=== PATIENT | female | born 1935 | race Caucasian/White ===

== ENCOUNTER 2016-02-23 23:00 | Inpatient (IN) | payer MEDICAID, OTHER ==
[~2016-02-23] VITALS: Ht 157.5 cm; Wt 56.4 kg
--- NOTE | 2016-02-23 23:44 | ERA ---
ER Documentation Chief Complaint Date/Time DATE: 02/23/16 TIME: 23:44 Chief Complaint sp fall 1 floor height stairs l 02/09/16- seen in [place] broken ribs HPI The patient is a 80-year-old female, presenting to the ER because of left-sided chest pain, shortness of breath today. She fell February 09, 2016 in [place]. She was hospitalized for 3 days, required left chest tube due to left pneumothorax. She also had 4 broken left ribs. She just came back from [place] today by airplane. The pain is worse with breathing and with movement. She denies headache, neck pain, palpitation, diaphoresis. She also complains of diffuse vague abdominal pain and constipation. She does not have nausea, vomiting, dysuria. She smokes, drinks Past medical history: Hypertension Past surgical history: ROS All systems reviewed and are negative except as per history of present illness. Allergies Allergies: Coded Allergies: No Known Allergy (Unverified , 03/15/13) Physical Exam Vitals Vital Signs Date Time Temp Pulse Resp B/P Pulse Ox O2 Delivery O2 Flow Rate FiO2 02/24/16 02:28 57 16 171/58 100 Nasal Cannula 2.0 02/24/16 00:33 99 1.0 02/24/16 00:33 62 18 99 Nasal Cannula 1.0 02/23/16 23:40 Nasal Cannula 2.0 02/23/16 23:40 Nasal Cannula 2 02/23/16 23:14 98.4 64 20 141/63 100 Physical Exam Const: No acute distress. Head: Atraumatic. Eyes: Normal Conjunctiva. ENT: Normal External Ears, Nose and Mouth. Neck: Full range of motion. No meningismus. Resp: Decreased breath sounds at the left base, mild expiratory wheezes Cardio: Regular rate and rhythm, no murmurs. Abd: Soft, non distended, normal bowel sounds, diffuse abdominal tenderness, no rigidity, rebound, CVA tenderness Skin: No petechiae or rashes. Back: No midline or flank tenderness. Ext: My bilateral calf tenderness Neur: Awake and alert. No focal deficit Psych: Normal Mood and Affect. Result Diagram: 02/23/16 0003 02/23/16 0003 Results 24 hrs Laboratory Tests Test 02/23/16 00:03 02/24/16 00:05 02/24/16 01:08 Activated Partial Thromboplast Time 33.2Sec Alanine Aminotransferase (ALT/SGPT) 80IU/L Albumin 3.6g/dl Albumin/Globulin Ratio 1.12 Alkaline Phosphatase 155IU/L Anion Gap 16 Aspartate Amino Transf (AST/SGOT) 66IU/L Basophils # 0.110^3/ul Basophils % 1.4% Blood Morphology Comment Blood Urea Nitrogen 23mg/dl Calcium Level 8.6mg/dl Carbon Dioxide Level 22mmol/L Chloride Level 94mmol/L Creatinine 0.87mg/dl Direct Bilirubin 0.00mg/dl Eosinophils # 0.210^3/ul Eosinophils % 2.1% Globulin 3.20g/dl Glucose Level 90mg/dl Hematocrit 31.9% Hemoglobin 10.8g/dl INR International Normalized Ratio 0.95 Indirect Bilirubin 0.4mg/dl Lymphocytes # 1.010^3/ul Lymphocytes % 11.6% Mean Corpuscular Hemoglobin 32.5pg Mean Corpuscular Hemoglobin Concent 33.8g/dl Mean Corpuscular Volume 96.1fl Mean Platelet Volume 8.7fl Monocytes # 1.210^3/ul Monocytes % 14.1% Neutrophils # 6.210^3/ul Neutrophils % 70.8% Nucleated Red Blood Cells # 0.010^3/ul Nucleated Red Blood Cells % 0.0/100WBC Platelet Count 87178^3/UL Potassium Level 4.7mmol/L Prothrombin Time 12.7Sec Prothrombin Time Ratio 1.0 Red Blood Count 3.3210^6/ul Red Cell Distribution Width 18.2% Sodium Level 127mmol/L Total Bilirubin 0.4mg/dl Total Protein 6.8g/dl Troponin I < 0.012ng/ml White Blood Count 8.810^3/ul Lactic Acid Level 0.9mmol/L Urine Bacteria RARE Urine Bilirubin NEGATIVE Urine Clarity CLOUDY Urine Color LT. YELLOW Urine Glucose NEGATIVE% Urine Hemoglobin 2+ Urine Ketones NEGATIVE Urine Leukocyte Esterase NEGATIVE Urine Microscopic RBC 5-10/HPF Urine Microscopic WBC 0-2/HPF Urine Nitrite NEGATIVE Urine Specific [place] 1.015 Urine Squamous Epithelial Cells MANY Urine Total Protein NEGATIVE Urine Urobilinogen 0.2 E.U./dL Urine pH 5.5 Current Medications Medications (Trade) Dose Ordered Sig/[place] Route PRN Reason Start Time Stop Time Status Last Admin Dose Admin Morphine Sulfate (morphine) 2 mg ONCE ONCE IV 1/12/17 00:00 02/24/16 00:01 DC 02/24/16 00:00 Ondansetron HCl (Zofran Inj) 4 mg ONCE STAT IV 02/23/16 23:52 02/23/16 23:57 DC 02/23/16 23:59 Levalbuterol (Xopenex Neb) 1.25 mg ONCE ONCE HHN 02/24/16 00:30 02/24/16 00:31 DC 02/24/16 00:33 Ipratropium [place] 0.5 mg 0.5 mg ONCE ONCE HHN 02/24/16 00:30 02/24/16 00:31 DC 02/24/16 00:33 Sodium Chloride (NS) 100 ml @ ud STK-MED ONCE .ROUTE 02/24/16 00:49 02/24/16 00:50 DC 02/24/16 01:33 Iohexol (Omnipaque 300mg/ ml) 150 ml STK-MED ONCE .ROUTE 02/24/16 00:49 02/24/16 00:50 DC 02/24/16 01:33 Vancomycin HCl 1 ea 1 ea X 1 ONLY IN E.R. STAT XX 02/24/16 00:48 02/24/16 00:50 DC Cefepime HCl 50 ml @ 100 mls/hr ONCE ONCE IVPB 02/24/16 01:00 02/24/16 01:29 DC 02/24/16 01:32 Vancomycin HCl (Vancocin) 250 ml @ 125 mls/hr ONCE IVPB 02/24/16 01:26 02/24/16 03:25 DC 02/24/16 02:27 Hydromorphone HCl (Dilaudid) 1 mg ONCE ONCE IV 02/24/16 01:57 02/24/16 01:58 DC 02/24/16 02:09 IV Flush (NS 3 ml) 3 ml PER PROTOCOL IV 02/24/16 02:00 Lorazepam (Ativan) 0.5 mg Q6H PRN IV ANXIETY 02/24/16 02:00 Ondansetron HCl (Zofran Inj) 4 mg Q6H PRN IV NAUSEA AND/OR VOMITING 02/24/16 02:00 Nitroglycerin (Nitroglycerin (Sl Tab) 0.4 Mg) 1 tab Q5M PRN SL CHEST PAIN 1/12/17 02:00 Acetaminophen (Tylenol Tab) 650 mg Q6H PRN PO PAIN LEVEL 1-3 OR FEVER 02/24/16 02:00 Acetaminophen/ Hydrocodone Bitart ([place] (5/325)) 1 tab Q6H PRN PO PAIN LEVEL 4-6 02/24/16 02:00 Morphine Sulfate (morphine) 2 mg Q4H PRN IV PAIN LEVEL 7-10 02/24/16 02:00 Docusate Sodium (Colace) 100 mg Q12H PRN PO CONSTIPATION 02/24/16 02:00 Famotidine (Pepcid) 20 mg DAILY PO 02/24/16 09:00 Heparin Sodium (Porcine) (Heparin (5000 Units/0.5 ml)) 5,000 unit Q12 SC 02/24/16 09:00 Albuterol/ Ipratropium 3 ml 3 ml Q2H RESP THERAPY PRN HHN SHORTNESS OF BREATH 02/24/16 02:00 Levofloxacin/ Dextrose (Levaquin 500mg/ D5W 100 ml (Pmx)) 100 ml @ 100 mls/hr ONCE ONCE IVPB 02/24/16 06:00 02/24/16 06:59 Hydralazine HCl 10 mg 10 mg Q6H PRN IV SBP > 160 02/24/16 02:00 Sodium Chloride 1,000 ml @ 50 mls/hr Q20H IV 02/24/16 02:00 Cefepime HCl (Maxipime 1gm/50 ml (Pmx)) 50 ml @ 100 mls/hr Q12 IVPB 02/24/16 09:00 Vancomycin HCl VANCOMYCIN PER PHARMACY PER PROTOCOL XX 02/24/16 02:30 Levofloxacin/ Dextrose 50 ml @ 50 mls/hr Q24H IVPB 02/25/16 06:00 Vancomycin HCl/ Sodium Chloride (Vancocin/NS) 150 ml @ 75 mls/hr Q24H IVPB 02/25/16 02:00 Procedures/MDM EKG: Read by emergency physician Rate/Rhythm: Sinus bradycardia 58 beats per min QRS, ST, T-waves: No ST elevation, no T wave inversion Impression: Abnormal EKG [address] [address] Radiology Main Line: [phone] DIAGNOSTIC IMAGING REPORT Patient: RENETTA BOB : 1935 Age: 80 Sex: F MR #: [id number] DOS: 02/23/162351 Ordering MD: ISABEL COLEMAN MD Location: E/R Room/Bed: PROCEDURE: XR Chest. CLINICAL INDICATION: Chest pain and sepsis TECHNIQUE: AP Portable chest. COMPARISON: None available FINDINGS: The soft tissues and bones are remarkable for bilateral acromioclavicular osteoarthropathy and mild thoracic spondylosis consolidation is noted obliquely along the course of the left major fissure and associated left lower lobe. This may represent a pseudotumor from fluid within the major fissure or pneumonia. A small to moderate left pleural effusion is present. Consider chest CT to further evaluate. The mediastinum and heart are remarkable for a vascular calcifications of the thoracic aorta and normal size heart. No pneumothorax is present. IMPRESSION: 1. Left lower lobe pneumonia and small left pleural effusion with possible extension into the left major fissure. Recommend CT chest to further evaluate. 2. Mild atherosclerotic vascular disease RPTAT: HDC .Nazia Sweeney MD, MD Date Time Electronically viewed and signed by .Nazia Sweeney MD, MD on 02/24/2016 00: 23 .C/ CC: ISABEL COLEMAN MD [place] [address] Radiology Main Line: [phone] DIAGNOSTIC IMAGING REPORT Patient: RENETTA BOB : 1935 Age: 80 Sex: F MR #: [id number] DOS: 02/24/162351 Ordering MD: ISABEL COLEMAN MD Location: E/R Room/Bed: PROCEDURE: US bilateral lower extremity venous Doppler CLINICAL INDICATION: Bilateral swelling TECHNIQUE: Multiple sonographic images of the bilateral lower extremity deep venous system was obtained utilizing grayscale, color-flow, compressive sonography and Doppler imaging with augmentation. COMPARISON: There are no similar studies submitted for comparison. FINDINGS: There is normal compressibility and flow within the bilateral common femoral, superficial femoral, popliteal, and calf veins. IMPRESSION: No evidence of DVT within the lower extremities. RPTAT: HIKT .Frank Enciso MD, Date Time Electronically viewed and signed by .Frank Enciso MD, MD on 02/24/2016 02:09 .T/ CC: ISABEL COLEMAN MD [place] [address] Radiology Main Line: [phone] DIAGNOSTIC IMAGING REPORT Patient: RENETTA BOB : 1935 Age: 80 Sex: F MR #: [id number] DOS: 02/23/16 2352 Ordering MD: ISABEL COLEMAN MD Location: E/R Room/Bed: PROCEDURE: CT angiogram chest abdomen and pelvis. CLINICAL INDICATION: Chest and back pain TECHNIQUE: CT angiogram of the chest/abdomen/pelvis was performed utilizing axial images with reconstructions in sagittal and coronal planes after the uneventful intravenous administration of 90 cc Isovue 370 contrast. The administered radiation dose is CTDI 6.5 mGy, DLP 662 mGy-cm. COMPARISON: No pertinent prior examinations are submitted for comparison. FINDINGS: Aortogram: There is no evidence of aortic dissection or aneurysm. Some scattered atherosclerotic calcifications are noted within the aorta and its branches. Major branches of the aorta are patent. There is a moderate to marked narrowing within the proximal superior mesenteric artery due to some noncalcified atherosclerotic plaque. Pulmonary angiogram: The pulmonary arteries are adequately opacified to the level of the segmental pulmonary artery branches. There is minimal respiratory motion artifact. There is no evidence of pulmonary embolus. Chest: No definite pneumothorax is seen however there is some subcutaneous emphysema throughout the chest monet, especially on the left. There is moderate left hemothorax. Some mucus plugging is noted within the left lower lobe bronchi with some adjacent atelectasis. Abdomen: The liver, spleen, pancreas, gallbladder, and adrenal glands are unremarkable. A small cyst is noted along the anterior aspect of the left kidney. There is no evidence of bowel obstruction. The appendix is normal. There is no intra-abdominal adenopathy of free fluid. Pelvis: There is no evidence of pelvic adenopathy. The uterus and ovaries are without enlargement. The urinary bladder is unremarkable. There is no pelvic free fluid. Osseous structures: There are acute fractures of the left posterior 2nd through 12th ribs at the costovertebral junction. There are acute fractures of the left third through eleventh ribs posterolaterally as well. There are also acute fractures of the anterior left of the second through seventh ribs. There are acute fractures of the left T3-T12 transverse processes. There are acute nondisplaced fractures of the left L1-L4 transverse processes. Some deformities of the right L2 and L3 transverse processes are noted, likely due to remote fractures. Vertebral body stature and alignment are maintained. IMPRESSION: No evidence of aortic dissection or aneurysm. No evidence of pulmonary embolus. Acute fractures of the left second through 12th ribs, with fractures of the 2nd through 11th ribs in at least 2 places. Please correlate for flail chest. Moderate left hemothorax with associated atelectasis. Mucous plugging in the left lower lobe. Acute fractures of the left T3-T12 and L1-L4 transverse processes. 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 RPTAT: HIKT .Frank Enciso MD, MD Date Time Electronically viewed and signed by .Frank Enciso MD, MD on 02/24/2016 02:33 .T/ CC: ISABEL COLEMAN MD MEDICAL MAKING DECISION: The patient is a 80-year-old female, presenting with acute healthcare acquired pneumonia, acute hyponatremia, subacute left pneumothorax,. She was treated with morphine 2 mg IV and metabolic, IV for pain and Zofran 4 IV for nausea, Xopenex 1.25 mg and Atrovent 0.5 mg for wheezing with good response. She was treated with vancomycin IV and cefepime IV , subacute flail chest, subacute left hemothorax, subacute T3 through T12 and L1 -L4 transverse fracture. The patient vital sign is stable and does not require emergent chest tube. She will need to be seen by thoracic surgery for possible VATS Critical Care: Time: 35 minutes excluding all billable procedures. Treatments/Evaluations: Close monitoring and treatment of unstable vital signs, cardiorespiratory, and neurologic status, while maintaining tight balance of fluid, respiratory, and cardiac interventions. Departure Diagnosis: Primary Impression: Pneumonia Additional Impressions: Hemothorax on left Flail chest Fracture of transverse process of thoracic vertebra Lumbar transverse process fracture Hyponatremia Anemia Abnormal LFTs Condition: Stable Comments I discussed the findings with the patient. I discussed the patient with the on- call hospitalist at the [facility] who was made aware of the lab, the treatment, the patient condition. The patient is admitted to telemetry at 1:30 AM ISABEL COLEMAN MD Feb 23, 2016 23:44
[2016-02-23] MEDS ORDERED: ONDANSETRON 4 MG INJ IV STA (23:52)
[2016-02-24] MEDS ORDERED: morphine 2 MG INJ IV ONE
--- NOTE | 2016-02-24 00:23 | RADRPT ---
PROCEDURE: XR Chest. CLINICAL INDICATION: Chest pain and sepsis TECHNIQUE: AP Portable chest. COMPARISON: None available FINDINGS: The soft tissues and bones are remarkable for bilateral acromioclavicular osteoarthropathy and mild thoracic spondylosis consolidation is noted obliquely along the course of the left major fissure and associated left lower lobe. This may represent a pseudotumor from fluid within the major fissure or pneumonia. A small to moderate left pleural effusion is present. Consider chest CT to further evalu ate. The mediastinum and heart are remarkable for a vascular calcifications of the thoracic aorta a nd normal size heart. No pneumothorax is present. IMPRESSION: 1. Left lower lobe pneumonia and small left pleural effusion with possible extension into the left major fissure. Recommend CT chest to further evaluate. 2. Mild atherosclerotic vascular disease RPTAT: HDC .Nazia Sweeney MD, Date Time Electronically viewed and signed by .Nazia Sweeney MD, on 02/24/2016 00:23 .C/
[2016-02-24 00:30] LABS: BASOPHIL # 0.1 10^3/ul (0.0-0.1); BASOPHILS % 1.4 % (0.0-2.0); EOSINOPHILS # 0.2 10^3/ul (0.0-0.5); EOSINOPHILS % 2.1 % (0.0-7.0); HEMATOCRIT 31.9 % (37.0-47.0); HEMOGLOBIN 10.8 g/dl (12.0-16.0); LYMPHOCYTES % 11.6 % (15.0-51.0); MEAN CORPUSCULAR HEMOGLOBIN 32.5 pg (29.0-33.0); MEAN CORPUSCULAR HGB CONC 33.8 g/dl (32.0-37.0); MEAN CORPUSCULAR VOLUME 96.1 fl (82.0-101.0); MEAN PLATELET VOLUME 8.7 fl (7.4-10.4); MONOCYTE # 1.2 10^3/ul (0.3-0.9); MONOCYTES % 14.1 % (0.0-11.0); NEUTROPHIL # 6.2 10^3/ul (1.6-7.5); NEUTROPHILS % 70.8 % (39.0-77.0); PLATELET COUNT 403 10^3/UL (140-440); RED BLOOD COUNT 3.32 10^6/ul (4.20-5.40); RED CELL DISTRIBUTION WIDTH 18.2 % (11.5-14.5); UNCORRECTED WBC 8.8 10^3/ul (4.8-10.8); WHITE BLOOD COUNT 8.8 10^3/ul (4.8-10.8)
[2016-02-24] MEDS ORDERED: LEVALBUTEROL (NEB) 1.25 MG/0.5 ML AMP HHN ONE (00:30)
[2016-02-24] MEDS ORDERED: IPRATROPIUM (NEB) 0.5 MG/2.5 ML AMP HHN ONE (00:30)
[2016-02-24 00:38] LABS: ALBUMIN 3.6 g/dl (3.3-4.9); CHLORIDE 94 mmol/L (97-110); POTASSIUM 4.7 mmol/L (3.5-5.1); SODIUM 127 mmol/L (135-144)
[2016-02-24 00:40] LABS: CREATININE 0.87 mg/dl (0.44-1.00); INR 0.95; PARTIAL THROMBOPLASTIN TIME 33.2 Sec (25.0-35.0); PROTIME 12.7 Sec (12.2-14.2)
[2016-02-24 00:41] LABS: ALANINE AMINOTRANSFERASE 80 IU/L (13-69); ALBUMIN/GLOBULIN RATIO 1.12; ALKALINE PHOSPHATASE 155 IU/L (42-121); ANION GAP 16 (8-16); ASPARTATE AMINO TRANSFERASE 66 IU/L (15-46); BILIRUBIN,INDIRECT 0.4 mg/dl (0-1.1); BILIRUBIN,TOTAL 0.4 mg/dl (0.2-1.3); BLOOD UREA NITROGEN 23 mg/dl (7-20); CALCIUM 8.6 mg/dl (8.4-10.2); CARBON DIOXIDE 22 mmol/L (21-31); GLUCOSE 90 mg/dl (70-220); TOTAL PROTEIN 6.8 g/dl (6.1-8.1)
[2016-02-24 00:45] LABS: CONDITION 1; LH ANALYZER COMMENTS 1
[2016-02-24] MEDS ORDERED: VANCOMYCIN IV PER PHARMACY XX STA (00:48)
[2016-02-24] MEDS ORDERED: IOHEXOL 300MG/ML 150 ML BTL ONE (00:49)
[2016-02-24] MEDS ORDERED: SOD CHLORIDE 0.9% 100 ML ONE (00:49)
[2016-02-24 00:54] LABS: TROPONIN-I < 0.012 ng/ml (0.00-0.12)
[2016-02-24] MEDS ORDERED: CEFEPIME 1GM/50 ML (PMX) 50 ML IVPB ONE (01:00)
[2016-02-24] MEDS ORDERED: VANCOMYCIN 1 GM in NS 250 ML IVPB SCH (01:26)
[2016-02-24 01:29] LABS: ADD UMIC YES; URINE BILIRUBIN (Dip) NEGATIVE (NEGATIVE); URINE BLOOD (Dip) 2+ (NEGATIVE); URINE COLOR LT. YELLOW (YELLOW); URINE GLUCOSE (Dip) NEGATIVE (NEGATIVE); URINE KETONES (Dip) NEGATIVE (NEGATIVE); URINE LEUKOCYTE ESTERASE (Dip) NEGATIVE (NEGATIVE); URINE NITRITE (Dip) NEGATIVE (NEGATIVE); URINE TOTAL PROTEIN (Dip) NEGATIVE (NEGATIVE); URINE UROBILINOGEN (Dip) 0.2 E.U./dL (0.1-1.0)
[2016-02-24 01:50] LABS: BACTERIA,URINE RARE; SQUAMOUS EPITHELIAL CELL,UR MANY
[2016-02-24] MEDS ORDERED: HYDROmorphONE 1 MG/ML SYG IV ONE (01:57)
--- NOTE | 2016-02-24 01:58 | HP ---
Date/Time of Note Date/Time of Note DATE: 02/24/16 TIME: 01:55 Assessment/Plan VTE Prophylaxis VTE Prophylaxis Intervention: heparin Assessment/Plan Assessment/Plan 80 yo female with past medical history of essential hypertension who complains of chest pain, with cough and cold symptoms. 1. Shortness of breath - 2/2 to LLL PNA - will admit to telemetry - continue with O2 supplementation - IV antibiotics - broad spectrum with HCAP, rule out TB with quantiferon gold, if deteriorating condition consider pulm consult, respiratory cultures 2. Recent PTX with residual pain - continue with pain management 3. Essential hypertension - prn hydralazine for sbp > 160 4. Transaminitis - 2/2 #1 (atypical) vs other - check hepatitis panel 5. Anemia - normocytic - check folate/b12, iron panel, occult blood stool 6. Hyponatremia - acute - IVF, if worsening or not improving - consider nephro consult, serum/urine studies 7. Smoking abuse - patient counseled on cessation 8. GI ppx - pepcid 9. DVT ppx - heparin answered all of her questions. as per clinical course. this history and physical took greater then 45 minutes to complete HPI/ROS Admit Date/Time Admit Date/Time 02/24/2016, 1:56 am Hx of Present Illness 80 yo female with past medical history of essential hypertension who complains of chest pain, with cough and cold symptoms. Patient had recently came from [place], where she sustained a fall off a roof and left 4 rib fractures with pneumothorax as a result. She had a chest tube placed and removed at a hospital in [place]. She now complains of chest pain and shortness of breath, with productive cough, fevers/chills, dizziness and headaches. She denies any TB contacts, but did just arrive from [place]. Denies any loss of consciousness, urinary/bowel irregularities, blurriness in vision, or other constitutional symptoms. ED course: IV antibiotics, pain medications ROS 14 point review of systems completed, please refer to HPI for any positive findings PMH/Family/Social Past Medical History Medical History: hypertension Past Surgical History s/p left sided chest tube placement Past Surgical Hx: appendectomy Family History Significant Family History: no pertinent family hx Social History Alcohol Use: occasionally Smoking Status: Current every day smoker (1 ppd x 50 yrs) Drug Use: none Exam/Review of Systems Vital Signs Vitals Vital Signs Date Time Temp Pulse Resp B/P Pulse Ox O2 Delivery O2 Flow Rate FiO2 02/24/16 00:33 99 1.0 02/24/16 00:33 62 18 Nasal Cannula 02/23/16 23:14 98.4 141/63 Exam Exam Gen Sima: moderate respiratory distress, AAOx4 HEENT: NC/AT, PERRLA, EOMI, no pharyngeal erythema, no tonsillar exudates, no lymphadenopathy, no JVD, no carotid bruits NECK: supple, no thyromegaly THORAX: left sided dressing noted, ttp left anterior/lateral chest CV: S1S2, RRR, no M/G/R Lungs: decreased aeration left mid/lower lung, with rhoncherous sounds, no wheezing or crackles appreciated Abd: soft, NT/ND, +BS, no rebound, no guarding, neg HSM EXT: no edema, no ecchymosis, no clubbing, FROM Neuro: CN II-XII grossly intact, no focal deficits Psych: anxious Skin: C/D/I Labs Result Diagram: 02/23/16 0003 02/23/16 0003 Medications Medications Current Medications Vancomycin HCl (Vancocin) 250 ml @ 125 mls/hr ONCE IVPB ; Start 02/24/16 at 01: 26; Stop 02/24/16 at 03:25 Lorazepam (Ativan) 0.5 mg Q6H PRN IV ANXIETY; Start 02/24/16 at 02:00; Status UNV Ondansetron HCl (Zofran Inj) 4 mg Q6H PRN IV NAUSEA AND/OR VOMITING; Start 01/28 at 02:00; Status UNV Nitroglycerin (Nitroglycerin (Sl Tab) 0.4 Mg) 1 tab Q5M PRN SL CHEST PAIN; Start 02/24/16 at 02:00; Status UNV Acetaminophen (Tylenol Tab) 650 mg Q6H PRN PO PAIN LEVEL 1-3 OR FEVER; Start at 02:00; Status UNV Acetaminophen/ Hydrocodone Bitart ([place] (5/325)) 1 tab Q6H PRN PO PAIN LEVEL 4 -6; Start 02/24/16 at 02:00; Status UNV Morphine Sulfate (morphine) 2 mg Q4H PRN IV PAIN LEVEL 7-10; Start 02/24/16 at 02:00; Status UNV Docusate Sodium (Colace) 100 mg Q12H PRN PO CONSTIPATION; Start 02/24/16 at 02: 00; Status UNV Famotidine (Pepcid) 20 mg Q12 PO ; Start 02/24/16 at 09:00; Status UNV Procedures Procedures CXR IMPRESSION: 1. Left lower lobe pneumonia and small left pleural effusion with possible extension into the left major fissure. Recommend CT chest to further evaluate. 2. Mild atherosclerotic vascular disease MELVIN LOVELACE MD Feb 24, 2016 01:58
[2016-02-24] MEDS ORDERED: NITROGLYCERIN (SL) 0.4 MG TAB SL PRN (02:00)
[2016-02-24] MEDS ORDERED: DOCUSATE SODIUM 100 MG CAP PO PRN (02:00)
[2016-02-24] MEDS ORDERED: NACL 0.9% 3 ML SYG IV SCH (02:00)
[2016-02-24] MEDS ORDERED: ALBUTEROL/IPRATROPIUM (NEB) 3 ML AMP HHN PRN (02:00)
--- NOTE | 2016-02-24 02:10 | RADRPT ---
PROCEDURE: US bilateral lower extremity venous Doppler CLINICAL INDICATION: Bilateral swelling TECHNIQUE: Multiple sonographic images of the bilateral lower extremity deep venous system was obt ained utilizing grayscale, color-flow, compressive sonography and Doppler imaging with augmentation. COMPARISON: There are no similar studies submitted for comparison. FINDINGS: There is normal compressibility and flow within the bilateral common femoral, superficial femoral, p opliteal, and calf veins. IMPRESSION: No evidence of DVT within the lower extremities. RPTAT: HIKT .Frank Enciso MD, MD Date Time Electronically viewed and signed by .Frank Enciso MD, MD on 02/24/2016 02:09 .T/
[2016-02-24] MEDS ORDERED: VANCOMYCIN IV PER PHARMACY XX SCH (02:30)
--- NOTE | 2016-02-24 02:34 | RADRPT ---
PROCEDURE: CT angiogram chest abdomen and pelvis. CLINICAL INDICATION: Chest and back pain TECHNIQUE: CT angiogram of the chest/abdomen/pelvis was performed utilizing axial images with esther nstructions in sagittal and coronal planes after the uneventful intravenous administration of 90 cc Isovue 370 contrast. The administered radiation dose is CTDI 6.5 mGy, DLP 662 mGy-cm. COMPARISON: No pertinent prior examinations are submitted for comparison. FINDINGS: Aortogram: There is no evidence of aortic dissection or aneurysm. Some scattered atherosclerotic c alcifications are noted within the aorta and its branches. Major branches of the aorta are patent. T here is a moderate to marked narrowing within the proximal superior mesenteric artery due to some no ncalcified atherosclerotic plaque. Pulmonary angiogram: The pulmonary arteries are adequately opacified to the level of the segmental pulmonary artery branches. There is minimal respiratory motion artifact. There is no evidence of p ulmonary embolus. Chest: No definite pneumothorax is seen however there is some subcutaneous emphysema throughout the chest w alls, especially on the left. There is moderate left hemothorax. Some mucus plugging is noted with in the left lower lobe bronchi with some adjacent atelectasis. Abdomen: The liver, spleen, pancreas, gallbladder, and adrenal glands are unremarkable. A small cyst is noted along the anterior aspect of the left kidney. There is no evidence of bowel obstruction. The appendix is normal. There is no intra-abdominal adenopathy of free fluid. Pelvis: There is no evidence of pelvic adenopathy. The uterus and ovaries are without enlargement. The uri nary bladder is unremarkable. There is no pelvic free fluid. Osseous structures: There are acute fractures of the left posterior 2nd through 12th ribs at the cos tovertebral junction. There are acute fractures of the left third through eleventh ribs posterolater ally as well. There are also acute fractures of the anterior left of the second through seventh rib s. There are acute fractures of the left T3-T12 transverse processes. There are acute nondisplaced fractures of the left L1-L4 transverse processes. Some deformities of the right L2 and L3 transver se processes are noted, likely due to remote fractures. Vertebral body stature and alignment are ma intained. IMPRESSION: No evidence of aortic dissection or aneurysm. No evidence of pulmonary embolus. Acute fractures of the left second through 12th ribs, with fractures of the 2nd through 11th ribs in at least 2 places. Please correlate for flail chest. Moderate left hemothorax with associated atelectasis. Mucous plugging in the left lower lobe. Acute fractures of the left T3-T12 and L1-L4 transverse processes. 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 RPTAT: HIKT .Frank Enciso MD, MD Date Time Electronically viewed and signed by .Frank Enciso MD, MD on 02/24/2016 02:33 .T/
[2016-02-24] MEDS: SOD CHLORIDE 0.9% 1,000 ML IV SCH ×2 (05:24→18:00)
[2016-02-24] MEDS ORDERED: LEVOFLOXACIN 500MG/D5W (PMX) 100 ML IVPB ONE (06:00)
[2016-02-24 06:16] LABS: HAAIG REFLEX REFLEX FILED
[2016-02-24 06:47] LABS: POTASSIUM 5.2 mmol/L (3.5-5.1)
[2016-02-24 06:49] LABS: CREATINE KINASE 55 IU/L (23-200)
[2016-02-24 06:50] LABS: CREATININE 0.84 mg/dl (0.44-1.00)
[2016-02-24 06:50] LABS: IRON 36 ug/dl (35-150)
[2016-02-24 06:51] LABS: CALCIUM 8.3 mg/dl (8.4-10.2)
[2016-02-24 06:54] LABS: BASOPHILS % 0.5 % (0.0-2.0); EOSINOPHILS # 0.1 10^3/ul (0.0-0.5); EOSINOPHILS % 1.7 % (0.0-7.0); HEMOGLOBIN 10.2 g/dl (12.0-16.0); LYMPHOCYTES # 1.2 10^3/ul (0.8-2.9); LYMPHOCYTES % 15.6 % (15.0-51.0); MEAN CORPUSCULAR HEMOGLOBIN 32.7 pg (29.0-33.0); MEAN CORPUSCULAR HGB CONC 33.8 g/dl (32.0-37.0); MEAN CORPUSCULAR VOLUME 96.6 fl (82.0-101.0); MEAN PLATELET VOLUME 8.3 fl (7.4-10.4); MONOCYTE # 1.2 10^3/ul (0.3-0.9); MONOCYTES % 14.6 % (0.0-11.0); NEUTROPHIL # 5.3 10^3/ul (1.6-7.5); NEUTROPHILS % 67.6 % (39.0-77.0); PLATELET COUNT 367 10^3/UL (140-440); RED BLOOD COUNT 3.11 10^6/ul (4.20-5.40); RED CELL DISTRIBUTION WIDTH 18.6 % (11.5-14.5); UNCORRECTED WBC 7.9 10^3/ul (4.8-10.8); WHITE BLOOD COUNT 7.9 10^3/ul (4.8-10.8)
[2016-02-24 06:59] LABS: CK-MB 2.76 ng/ml (0.0-2.4)
[2016-02-24 06:59] LABS: TOTAL IRON BINDING CAPACITY 283 ug/dl (241-421)
[2016-02-24 07:01] LABS: CONDITION 1; SUSPECT 1
[2016-02-24 07:02] LABS: LH ANALYZER COMMENTS 1
[2016-02-24 07:04] LABS: TROPONIN-I < 0.012 ng/ml (0.00-0.12)
[2016-02-24 07:38] LABS: HEPATITIS B CORE ANTIBODY NEGATIVE (NEGATIVE)
[2016-02-24 07:58] LABS: CHOL/HDL RATIO 2.6 RATIO; MAGNESIUM 1.9 mg/dl (1.7-2.5)
[2016-02-24] MEDS: FAMOTIDINE 20 MG TAB PO SCH (08:29)
[2016-02-24] MEDS: CEFEPIME 1GM/50 ML (PMX) 50 ML IVPB SCH ×2 (08:29→23:11)
[2016-02-24 08:58] LABS: THYROID STIMULATING HORMONE 22.5 MIU/L (0.465-4.680)
[2016-02-24] MEDS ORDERED: HEPARIN 5,000 UNIT/0.5 ML SYG SC SCH (09:00)
[2016-02-24] MEDS: HYDROCODONE/APAP (5/325) TAB PO PRN ×2 (11:06→23:11)
[2016-02-24] MEDS ORDERED: NA POLYST SULFON 15 GM/60 ML BTL PO ONE (12:00)
[2016-02-24 12:46] LABS: CREATINE KINASE 50 IU/L (23-200)
[2016-02-24 12:56] LABS: CK-MB 1.46 ng/ml (0.0-2.4)
[2016-02-24 13:02] LABS: TROPONIN-I < 0.012 ng/ml (0.00-0.12)
[2016-02-24] MEDS ORDERED: CYAN50TA PO (13:15)
[2016-02-24] MEDS ORDERED: ENAL10TA PO (13:16)
[2016-02-24] MEDS ORDERED: DICL50TA11 PO (13:16)
[2016-02-24] MEDS ORDERED: TRAM-40 PO (13:16)
[2016-02-24] MEDS ORDERED: IBUP-1542 PO (13:17)
[2016-02-24] MEDS: ALBUTEROL 0.083% (NEB) 2.5 MG/3 ML AMP HHN SCH (13:39)
[2016-02-24] MEDS: DOCUSATE SODIUM 100 MG CAP PO SCH (13:55)
[2016-02-24 14:00] VITALS: TEMP 99.3
--- NOTE | 2016-02-24 16:15 | RADRPT ---
PROCEDURE: CT Brain without contrast. CLINICAL INDICATION: Trauma due to falling from the roof. Headache. TECHNIQUE: A CT of the brain without contrast was performed utilizing axial sections from the skul l base through the vertex. The patient was scanned without intravenous contrast enhancement. Sagitta l and coronal reformatted images were obtained using the data from the axial images. Total exam DLP is 630.20 mGy-cm. CTDIvol is 44.73 mGy. One or more of the following dose reduction techniques we re used: Automated exposure control, adjustment of the mA and/or kV according to patient size, use o f iterative reconstruction technique. COMPARISON: None available FINDINGS: There is normal riggins-white matter differentiation. There is enlargement of the ventricles and subarachnoid spaces consistent with atrophy. There is decreased attenuation of the periventricular white matter consistent with microangiopathic ischemic change. There is no intracranial hemorrhage or space-occupying lesion. There are vascular calcifications consistent with atherosclerosis. There is no skull fracture or lytic lesion. There is fluid and mucosal thickening in the ethmoid and sphenoid sinuses. IMPRESSION: 1. Atrophy. 2. Microangiopathic ischemic change. 3. Atherosclerosis. 4. Fluid and mucosal thickening in the ethmoid and sphenoid sinuses. 5. No intracranial hemorrhage. 6. Otherwise unremarkable noncontrast CT scan of the brain. RPTAT: QQ .Carter Field MD, Date Time Electronically viewed and signed by .Carter Field MD, on 02/24/2016 16:15 .R/
[2016-02-24 16:45] VITALS: BP 154/57; PULSE 60; RESP 16
[2016-02-24] MEDS: morphine 2 MG INJ IV PRN ×2 (16:46→20:25)
[2016-02-24 16:55] VITALS: PULSE 61
[2016-02-24 17:03] VITALS: Ht 157.5 cm; Wt 56.4 kg
--- NOTE | 2016-02-24 17:40 | RADRPT ---
PROCEDURE: CT Cervical Spine. CLINICAL INDICATION: Trauma TECHNIQUE: Helical CT scanning which forms the basis for coronal and sagittal reformatted images. All CT scans at this facility use dose modulation, iterative reconstruction, and/or weight-based do sing when appropriate to reduce radiation dose to as low as reasonably achievable. The CTDIvol is 2 2.21 mGy and the DLP is 467.67 mGycm. One or more of the following dose reduction techniques were us ed: automated exposure control, adjustment of the mA and/or kV according to patient size, or use of iterative reconstruction technique. COMPARISON: None. FINDINGS: There are degenerative changes throughout the cervical spine with osteophytes and endplate irregular ities. No prevertebral soft tissue swelling is seen. There is grade 1 anterolisthesis at C4-5 and C 7-T1. Alignment otherwise anatomic. Facet degenerative changes are seen throughout as well. No de finite fracture. Multilevel foraminal narrowing on a degenerative basis. There are fractures of th e medial end of the right first rib, bilateral second ribs, and left third rib. Changes of the thor acic spine will be described in report below. Pleural effusion is partially imaged. Multilevel disk protrusions most notable at C4-5 and C5-6. Probable moderate spinal stenosis at C5-6 with canal di ameter of approximate 6 mm. Atherosclerotic change. IMPRESSION: Degenerative change of the cervical spine with minor listhesis but no definite fracture and no preve rtebral soft tissue swelling. Clinical clearance of the cervical spine is still advised. Degenerat margaret change with disk protrusions most pronounced at C4-5 and C5-6. Spinal stenosis at least at C5-6 . MRI can be obtained as indicated. RPTAT: [facility] Physician [place] Date Time Electronically viewed and signed by Physician [place] on 02/24/2016 17:40 SHANITA/
--- NOTE | 2016-02-24 17:48 | RADRPT ---
PROCEDURE: CT L-Spine. CLINICAL INDICATION: Trauma. Fall off roof. Thoracic spine fractures. TECHNIQUE: Section spiral CT images through the lumbar spine without contrast. Multiplanar recons tructions. .The CTDIvol is 17.48 mGy and the DLP is 476.59 mGycm. One or more of the following dos e reduction techniques were used: automated exposure control, adjustment of the mA and/or kV accordi ng to patient size, or use of iterative reconstruction technique. COMPARISON: None FINDINGS: Changes of the thoracic spine will be described in separate report. There are mild degenerative luther nges of the lumbar spine with small osteophytes and minor endplate irregularities. No listhesis is seen. There are fractures of the left L1-L4 transverse processes. There is a horizontal lucency th rough the facet and spinous processes of L2. Margins are somewhat sclerotic suggesting this may be old rather than acute. Disk bulge and short pedicles in addition to facet and ligamentous hypertrop hic changes contribute to tight spinal stenosis and L3-4 and L4-5. Disk bulge and facet ligamentous hypertrophic changes contribute to tight left foraminal narrowing L5-S1. No other fractures are se en. Residual contrast material is seen in the kidneys. Atherosclerotic change of the aorta and bran ches. IMPRESSION: Degenerative changes of the thoracic spine. Left L1-L4 transverse process fractures. Lucency throug h the facet and spinous processes of L2 with the appearance more suggestive of degenerative change o r remote trauma rather than acute injury. Nondisplaced fracture cannot be completely excluded. Lum bar spondylosis spinal stenosis at L3-4 and L4-5. RPTAT: [facility] Physician [place] Date Time Electronically viewed and signed by Physician [place] on 02/24/2016 17:48 LE/
--- NOTE | 2016-02-24 17:54 | RADRPT ---
PROCEDURE: CT thoracic spine CLINICAL INDICATION: Trauma TECHNIQUE: Thin section spiral CT images through the thoracic spine without contrast. Multiplanar reconstructions. The CTDIvol is 14.19 mGy and the DLP is 503.4 mGycm. COMPARISON: None FINDINGS: Fractures of the medial ends of the right first, bilateral second, and left 3rd through 12th ribs. There is a moderate left pleural effusion. Atherosclerotic change of the aorta is seen as well as c ardiomegaly. There are fractures through the left transverse processes of T6-T12. There are mild d egenerative changes throughout the thoracic spine with small osteophytes and minor endplate irregula rities. No vertebral body compression fracture is seen. No other fractures are seen. No listhesis is seen. IMPRESSION: Multiple medial posterior rib fractures as described as well as fractures through the left transvers e processes from T6-T12. Degenerative change. RPTAT: [facility] Physician [place] Date Time Electronically viewed and signed by Gayla Cho Physician on 02/24/2016 17:54 SHANITA/
[2016-02-24 19:46] VITALS: BP 199/60; RESP 16
[2016-02-24] MEDS: hydrALAzine 20 MG INJ IV PRN (19:50)
--- NOTE | 2016-02-24 20:27 | CONS ---
DATE OF ADMISSION: 02/24/2016 DATE OF CONSULTATION: REASON FOR CONSULTATION: Hemothorax. HISTORY OF PRESENT ILLNESS: This is a 80-year-old female admitted to the emergency room because of pain, was found to have a history of fall with fractured ribs. Chest CT was done which showed no ev idence of any aneurysm, but the patient had subcutaneous emphysema, moderate left hemothorax. The p atient is currently hemodynamically stable with a blood pressure of 154/57, pulse is 60, respiration s are 16, saturation is 99% on 2 L of oxygen, and her hemoglobin is stable at 10.2, which is stable from 10.8 yesterday. PAST MEDICAL HISTORY: Hypertension, diabetes. PAST SURGICAL HISTORY: None. ALLERGIES: NONE. SOCIAL HISTORY: No smoking, drinking or drug use. MEDICATIONS: List reviewed. PHYSICAL EXAMINATION: VITAL SIGNS: Blood pressure is as stated above. CARDIOVASCULAR: Regular rate and rhythm. LUNGS: Clear on the right. Diminished breath sounds on the left. ABDOMEN: Soft, nontender, nondistended. EXTREMITIES: Warm. LABORATORY VALUES: Hemoglobin 10.2. IMPRESSION: 1. Status post fall. 2. Rib fractures. 3. Left hemothorax. RECOMMENDATIONS: The patient will need left video-assisted thoracic surgery and decortication. Gutierrez dale discuss with the family. Dictated By: SE MCBRIDE/JOSUÉ Conf#: [id number] DID#: [id number]
[2016-02-24 20:42] VITALS: PULSE 60
[2016-02-24] MEDS ORDERED: LABETALOL HCL 20MG INJ IV PRN (23:00)
[2016-02-24] MEDS: GUAIFENESIN/DM 5ML CUP PO PRN (23:11)
[2016-02-25] VITALS (37 sets, daily range): BP systolic 131–203; BP diastolic 37–84; PULSE 56–86; RESP 12–24
[2016-02-25] MEDS: DOCUSATE SODIUM 100 MG CAP PO SCH ×2 (02:00→13:33)
[2016-02-25] MEDS: ALBUTEROL 0.083% (NEB) 2.5 MG/3 ML AMP HHN SCH ×5 (02:23→19:48)
[2016-02-25] MEDS: VANCOMYCIN 750 MG in SOD CHLORIDE 0.9% 150 ML IVPB SCH (03:40)
[2016-02-25] MEDS ORDERED: LEVOFLOXACIN 250MG/D5W (PMX) 50 ML IVPB SCH (06:00)
[2016-02-25 06:24] LABS: BASOPHILS % 0.2 % (0.0-2.0); EOSINOPHILS % 0.3 % (0.0-7.0); HEMATOCRIT 29.4 % (37.0-47.0); LYMPHOCYTES # 1.3 10^3/ul (0.8-2.9); LYMPHOCYTES % 9.8 % (15.0-51.0); MEAN CORPUSCULAR HEMOGLOBIN 32.7 pg (29.0-33.0); MEAN CORPUSCULAR VOLUME 96.1 fl (82.0-101.0); MEAN PLATELET VOLUME 8.3 fl (7.4-10.4); MONOCYTE # 1.6 10^3/ul (0.3-0.9); MONOCYTES % 12.8 % (0.0-11.0); NEUTROPHIL # 9.9 10^3/ul (1.6-7.5); NEUTROPHILS % 76.9 % (39.0-77.0); PLATELET COUNT 316 10^3/UL (140-440); RED BLOOD COUNT 3.06 10^6/ul (4.20-5.40); RED CELL DISTRIBUTION WIDTH 18.7 % (11.5-14.5); UNCORRECTED WBC 12.8 10^3/ul (4.8-10.8); WHITE BLOOD COUNT 12.8 10^3/ul (4.8-10.8)
[2016-02-25 06:34] LABS: CONDITION 1; LH ANALYZER COMMENTS 1
[2016-02-25 06:41] LABS: ALBUMIN 2.8 g/dl (3.3-4.9)
[2016-02-25 06:42] LABS: POTASSIUM 4.9 mmol/L (3.5-5.1)
[2016-02-25 06:44] LABS: ALBUMIN/GLOBULIN RATIO 0.96; BILIRUBIN,INDIRECT 0.4 mg/dl (0-1.1); BILIRUBIN,TOTAL 0.4 mg/dl (0.2-1.3); CALCIUM 8.1 mg/dl (8.4-10.2); CREATININE 0.77 mg/dl (0.44-1.00); TOTAL PROTEIN 5.7 g/dl (6.1-8.1)
[2016-02-25 06:45] LABS: MAGNESIUM 1.7 mg/dl (1.7-2.5)
[2016-02-25] MEDS: LEVOTHYROXINE 50 MCG TAB PO SCH (06:46)
[2016-02-25 06:49] LABS: T3 UPTAKE 41.6 % (23.5-40.5)
[2016-02-25 07:04] LABS: THYROID STIMULATING HORMONE 10.4 MIU/L (0.465-4.680)
[2016-02-25] MEDS: morphine 2 MG INJ IV PRN ×2 (08:48→16:32)
[2016-02-25] MEDS: hydrALAzine 20 MG INJ IV PRN ×3 (08:53→21:33)
[2016-02-25] MEDS: FAMOTIDINE 20 MG TAB PO SCH (08:53)
[2016-02-25] MEDS ORDERED: INFLUENZA VIRUS VACCINE 0.5 ML (DISPENSING) IM* ONE (09:00)
[2016-02-25] MEDS: CEFEPIME 1GM/50 ML (PMX) 50 ML IVPB SCH ×2 (09:53→22:55)
[2016-02-25] MEDS: GUAIFENESIN/DM 5ML CUP PO PRN (10:44)
[2016-02-25] MEDS ORDERED: PROPOFOL 20 ML ONE (13:27)
[2016-02-25] MEDS ORDERED: ROCURONIUM 50 MG INJ ONE (13:27)
[2016-02-25] MEDS ORDERED: DEXAMETHASONE 4 MG/ML 1 ML INJ ONE (13:28)
[2016-02-25] MEDS ORDERED: MIDAZOLAM 1 MG/ML 2 ML INJ ONE (13:28)
[2016-02-25] MEDS ORDERED: FENTAnyl 50 MCG/ML VIAL ONE ×2 (13:28→13:43)
[2016-02-25] MEDS ORDERED: LIDOCAINE 100 MG SYRINGE ONE (13:28)
[2016-02-25] MEDS ORDERED: ONDANSETRON 4 MG INJ ONE (13:28)
[2016-02-25] MEDS ORDERED: morphine SULFATE/PF (10 MG/10 ML) INJ ONE (13:32)
[2016-02-25] MEDS ORDERED: LABETALOL HCL 20MG INJ ONE (15:23)
[2016-02-25 15:28] LABS: TB-NIL 0.47 IU/mL
--- NOTE | 2016-02-25 15:38 | OPPN ---
Date/Time of Note Date/Time of Note DATE: 02/25/16 TIME: 15:36 Operative/Procedure Note Pre-Operative Diagnosis left hemothorax Post-Operative Diagnosis same Procedure left VATS decortication Surgeon: SE PETIT MD Implants/Grafts: Not applicable Estimated blood loss: 50 - 100 ml's Specimens: Not Applicable Complications: None Anesthesia type: general SE PETIT MD Feb 25, 2016 15:37
--- NOTE | 2016-02-25 16:15 | OPR ---
DATE OF OPERATION: PREOPERATIVE DIAGNOSIS: Left hemothorax. POSTOPERATIVE DIAGNOSIS: Left hemothorax. OPERATION PERFORMED: 1. Left video-assisted thoracic surgery, total pulmonary decortication. 2. Control of chest bleeding. 3. Bronchoscopy. SURGEON: Se Patel MD ANESTHESIA: General. ESTIMATED BLOOD LOSS: 50 mL. INFORMED CONSENT: Risks, benefits, complications, alternative therapies, high-risk nature of the op eration fully explained to the patient and the family, consent obtained. OPERATIVE TECHNIQUE: The patient was placed in supine position, prepped and draped in usual sterile fashion. Time-out was called. Antibiotics were given and I started. Bronchoscopy was done. No evidence of any endobronchial lesions were noted. The patient was placed in the right lateral decubitus position left side up, axillary roll was placed, prepped and draped in usual sterile fashion. Time-out was called and I started. A 1 cm incision was made, sixth inter costal space mid axillary line. Incision was taken down to the subcutaneous tissue which was then o pened using electrocautery. A 12 mm trocar was advanced into the pleural cavity. Large amounts of bloody fluid was noted, which was then aspirated and . A portion at the posterolateral aspect left upper chest appeared to be bleeding from possibly a rib fracture which was then electrocauteriz ed. Bleeding stopped. Decortication was then started. The peel was removed, the lung was complete ly freed and decorticated. No evidence of any further bleeding was noted. The thoracic cavity was copiously irrigated using antibiotic solution. A 28 Haitian chest tube was placed into the pleural c avity, secured to skin using silk sutures. The trocar incisions were closed using 2-0 Vicryl suture for the deep, 2-0 Vicryl suture for subcutaneous, and Steri-Strips for the skin. The patient kesha ated procedure well. Dictated By: SE MCBRIDE/JOSUÉ Conf#: [id number] DID#: [id number]
[2016-02-25 16:22] LABS: HEMATOCRIT 27.9 % (37.0-47.0); HEMOGLOBIN 9.3 g/dl (12.0-16.0); MEAN CORPUSCULAR HGB CONC 33.1 g/dl (32.0-37.0); MEAN CORPUSCULAR VOLUME 96.6 fl (82.0-101.0); PLATELET COUNT 294 10^3/UL (140-440); RED BLOOD COUNT 2.89 10^6/ul (4.20-5.40); RED CELL DISTRIBUTION WIDTH 18.5 % (11.5-14.5)
[2016-02-25] MEDS: SOD CHLORIDE 0.9% 1,000 ML IV SCH (16:43)
[2016-02-25 17:01] LABS: CONDITION 1; LH ANALYZER COMMENTS 1; SUSPECT 1
--- NOTE | 2016-02-25 19:27 | QN ---
Documentation Comment 80 year old female s/p fall from roof in [place] two weeks ago, was admitted in [place] and discharged home ambulatory without cervical collar. She complained of persistent pain and was admitted vie ED here where CT C/T/L spine shows multiple transverse process fractures and spinous process fracture in thoracic and lumbar spine. There is preserved alignment throughout the thoracic and lumbar spine. C-spine CT shows grade 1 anterolisthesis C4-5 and C7-1 without fracture. She has no neck pain and moves all extremities 5/5. She has no sensory deficit. In my opinion her listhesis is most likely degenerative. She has full ROM of the neck without pain and has been without a collar for ~2 weeks , so I do not think it is likely that she is unstable. Nevertheless I recommend a c-spine MRI without javed is to assess for degree of stenosis. A brace (lumbar corset) may be of benefit to her for pain relief once she is ambulating. She is recuperating from chest tube placed for hemothorax from multiple rib fractures. She may follow up with me after discharge prn. MIRLANDE BARKER MD Feb 25, 2016 19:27
--- NOTE | 2016-02-25 19:27 | PN ---
Date/Time of Note Date/Time of Note DATE: 02/25/16 TIME: 19:23 Assessment/Plan VTE Prophylaxis VTE Prophylaxis Intervention: SCD's Lines/Catheters IV Catheter Type (from Nrsg): A Line Urinary Cath still in place: Yes Reason Cath still needed: other (indicate) Assessment/Plan Chief Complaint/Hosp Course 1. Left video-assisted thoracic surgery, total pulmonary decortication. 2. Control of chest bleeding. 3. Bronchoscopy 4 s/p fall 5 lung infilterate 6 hyponatremia 7 djd 8 ddd [address]x [address] plan [address] howe and neuro surgery labs pain meds Problems: Subjective 24 Hr Interval Summary Subjective hx not possible: other (s/p vats now c/o cwall pain) Respiratory: pleuritic pain, shortness of breath Cardiovascular: No chest pain Gastrointestinal: no complaints Genitourinary: no complaints Musculoskeletal: bone/joint pain (+) Skin: no complaints Neurologic: No focal-weakness, No seizure Endocrine: no complaints Lymphatic: no complaints Psychological: no complaints Exam/Review of Systems Vital Signs Vitals Vital Signs Date Time Temp Pulse Resp B/P Pulse Ox O2 Delivery O2 Flow Rate FiO2 02/25/16 18:37 2.0 02/25/16 18:30 65 12 155/41 100 Nasal Cannula 02/25/16 17:00 97.6 Intake and Output 02/24/16 02/24/16 02/25/16 15:00 23:00 07:00 Intake Total 650 ml Output Total 1400 ml Balance -750 ml Exam Constitutional: alert, oriented, well developed, No distress Psych: nl mood/affect, no complaints Head: normocephalic Eyes: EOMI, PERRL, nl conjunctiva, nl lids, No icteric ENMT: mucosa pink and moist, nl external ears & nose, nl lips & teeth, nl nasal mucosa & septum Neck: non-tender, supple Respiratory: diminished breath sounds, No crackles/rales, No labored breathing, No wheezing Cardiovascular: regular rate and rhythm Gastrointestinal: nl liver, spleen, non-tender, soft Musculoskeletal: nl extremities to inspection Extremities: normal pulses Neurological: [employer] OP II-XII intact, nl mental status, nl speech, nl strength Skin: nl turgor, No rash or lesions Results Result Diagram: 02/25/16 1600 02/25/16 0540 Results 24 hrs Laboratory Tests Test 02/25/16 05:40 02/25/16 16:00 Alanine Aminotransferase (ALT/SGPT) 55 Albumin 2.8 L Albumin/Globulin Ratio 0.96 Alkaline Phosphatase 103 Anion Gap 13 Aspartate Amino Transf (AST/SGOT) 39 Basophils # 0.0 Basophils % 0.2 Blood Morphology Comment Blood Urea Nitrogen 13 Calcium Level 8.1 L Carbon Dioxide Level 24 Chloride Level 100 Creatinine 0.77 Direct Bilirubin 0.00 Eosinophils # 0.0 Eosinophils % 0.3 Free Thyroxine Index 2.54 Globulin 2.90 Glucose Level 86 Hematocrit 29.4 L 27.9 L Hemoglobin 10.0 L 9.3 L Indirect Bilirubin 0.4 Lymphocytes # 1.3 Lymphocytes % 9.8 L Magnesium Level 1.7 Mean Corpuscular Hemoglobin 32.7 32.0 Mean Corpuscular Hemoglobin Concent 34.0 33.1 Mean Corpuscular Volume 96.1 96.6 Mean Platelet Volume 8.3 8.0 Monocytes # 1.6 H Monocytes % 12.8 H Neutrophils # 9.9 H Neutrophils % 76.9 Nucleated Red Blood Cells # 0.0 Nucleated Red Blood Cells % 0.0 Platelet Count 316 294 Potassium Level 4.9 Red Blood Count 3.06 L 2.89 L Red Cell Distribution Width 18.7 H 18.5 H Sodium Level 132 L Thyroid Stimulating Hormone (TSH) 10.400 H Thyroxine (T4) 6.1 Total Bilirubin 0.4 Total Protein 5.7 L Triiodothyronine (T3) Uptake 41.6 H White Blood Count 12.8 #H 22.0 #H Medications Medications Current Medications Lorazepam (Ativan) 0.5 mg Q6H PRN IV ANXIETY; Start 02/24/16 at 02:00 Ondansetron HCl (Zofran Inj) 4 mg Q6H PRN IV NAUSEA AND/OR VOMITING; Start 01/28 at 02:00 Nitroglycerin (Nitroglycerin (Sl Tab) 0.4 Mg) 1 tab Q5M PRN SL CHEST PAIN; Start 02/24/16 at 02:00 Acetaminophen (Tylenol Tab) 650 mg Q6H PRN PO PAIN LEVEL 1-3 OR FEVER; Start at 02:00 Acetaminophen/ Hydrocodone Bitart ([place] (5/325)) 1 tab Q6H PRN PO PAIN LEVEL 4 -6 Last administered on 02/24/16 23:11; Admin Dose 1 TAB; Start 02/24/16 at 02: 00 Famotidine (Pepcid) 20 mg DAILY PO Last administered on 02/25/16 08:53; Admin Dose 20 MG; Start 02/24/16 at 09:00 Hydralazine HCl 10 mg 10 mg Q6H PRN IV SBP > 160 Last administered on 18:14; Admin Dose 10 MG; Start 02/24/16 at 02:00 Sodium Chloride 1,000 ml @ 50 mls/hr Q20H IV Last administered on 02/25/16 16 :43; Admin Dose 50 MLS/HR; Start 02/24/16 at 02:00 Cefepime HCl 50 ml @ 100 mls/hr Q12 IVPB Last administered on 02/25/16 09:53 ; Admin Dose 100 MLS/HR; Start 02/24/16 at 09:00 Vancomycin HCl/ Sodium Chloride (Vancocin/NS) 150 ml @ 75 mls/hr Q24H IVPB Last administered on 02/25/16 03:40; Admin Dose 75 MLS/HR; Start 02/25/16 at 02 :00 Docusate Sodium (Colace) 100 mg Q12H PO Last administered on 02/24/16 13:55; Admin Dose 100 MG; Start 02/24/16 at 14:00 Levothyroxine Sodium (Synthroid) 50 mcg DAILY@06 PO Last administered on 06:46; Admin Dose 50 MCG; Start 02/25/16 at 06:00 Labetalol HCl (Labetalol) 10 mg Q6 PRN IV ELEVATED BLOOD PRESSURE; Start at 23:00 Guaifenesin/ Dextromethorphan (Robitussin Dm Liquid Cup) 5 ml Q6 PRN PO COUGH Last administered on 02/25/16 10:44; Admin Dose 5 ML; Start 02/24/16 at 23:00 Morphine Sulfate (morphine) 4 mg Q4H PRN IV SEVERE PAIN LEVEL 7-10; Start 02/24 at 18:00 REMINGTON ZELAYA MD Feb 25, 2016 19:27
[2016-02-26] VITALS (65 sets, daily range): BP systolic 65–176; BP diastolic 32–114; PULSE 70–114; RESP 11–41
[2016-02-26 00:19] LABS: LYMPHOCYTES # 0.4 10^3/ul (0.8-2.9); MONOCYTE # 0.4 10^3/ul (0.3-0.9); NEUTROPHIL # 21.1 10^3/ul (1.6-7.5)
[2016-02-26 00:20] LABS: ANISOCYTOSIS 1+; BURR CELLS FEW; MICROCYTOSIS FEW; PLATELET ESTIMATE PLT APPEAR ADEQUATE
[2016-02-26] MEDS: ALBUTEROL 0.083% (NEB) 2.5 MG/3 ML AMP HHN SCH ×2 (01:02→08:10)
[2016-02-26] MEDS: VANCOMYCIN 750 MG in SOD CHLORIDE 0.9% 150 ML IVPB SCH (02:01)
[2016-02-26] MEDS: DOCUSATE SODIUM 100 MG CAP PO SCH ×3 (02:02→20:24)
[2016-02-26] MEDS: LORAZEPAM 2 MG INJ IV PRN (02:02)
[2016-02-26] MEDS: morphine 4 MG/ML VIAL IV PRN ×2 (03:59→10:10)
[2016-02-26] MEDS: LEVOTHYROXINE 50 MCG TAB PO SCH (06:10)
[2016-02-26 06:17] LABS: ALBUMIN 2.4 g/dl (3.3-4.9); POTASSIUM 4.1 mmol/L (3.5-5.1)
[2016-02-26 06:19] LABS: CREATININE 0.73 mg/dl (0.44-1.00)
[2016-02-26 06:20] LABS: ALBUMIN/GLOBULIN RATIO 0.88; BILIRUBIN,INDIRECT 0.3 mg/dl (0-1.1); BILIRUBIN,TOTAL 0.3 mg/dl (0.2-1.3); CALCIUM 7.6 mg/dl (8.4-10.2); TOTAL PROTEIN 5.1 g/dl (6.1-8.1)
[2016-02-26 06:21] LABS: BASOPHILS % 0.2 % (0.0-2.0); EOSINOPHILS % 0.1 % (0.0-7.0); HEMATOCRIT 25.7 % (37.0-47.0); HEMOGLOBIN 8.6 g/dl (12.0-16.0); LYMPHOCYTES # 0.9 10^3/ul (0.8-2.9); LYMPHOCYTES % 4.8 % (15.0-51.0); MEAN CORPUSCULAR HEMOGLOBIN 32.3 pg (29.0-33.0); MEAN CORPUSCULAR HGB CONC 33.5 g/dl (32.0-37.0); MEAN CORPUSCULAR VOLUME 96.3 fl (82.0-101.0); MEAN PLATELET VOLUME 8.8 fl (7.4-10.4); MONOCYTE # 0.9 10^3/ul (0.3-0.9); MONOCYTES % 4.6 % (0.0-11.0); NEUTROPHIL # 17.2 10^3/ul (1.6-7.5); NEUTROPHILS % 90.3 % (39.0-77.0); PLATELET COUNT 270 10^3/UL (140-440); RED BLOOD COUNT 2.67 10^6/ul (4.20-5.40); RED CELL DISTRIBUTION WIDTH 17.7 % (11.5-14.5)
[2016-02-26] MEDS: hydrALAzine 20 MG INJ IV PRN (06:44)
[2016-02-26 06:47] LABS: CONDITION 1; LH ANALYZER COMMENTS 1; SUSPECT 1
[2016-02-26] MEDS: HYDROCODONE/APAP (5/325) TAB PO PRN (08:16)
[2016-02-26] MEDS: NICOTINE (21 MG/24 HR) PATCH TRANSDERM SCH (09:16)
[2016-02-26 09:40] LABS: ANISOCYTOSIS 1+; POIKILOCYTOSIS 1+
[2016-02-26 09:41] LABS: ACANTHOCYTES OCCASIONAL; BURR CELLS FEW
--- NOTE | 2016-02-26 09:59 | RADRPT ---
PROCEDURE: MR Cervical Spine. CLINICAL INDICATION: C3 fracture, follow-up study. TECHNIQUE: An MRI of the cervical spine was performed on a [employer] short bore high-definition 3 main RESAASer utilizing the following sequences: Pre and post contrast sagittal and axial T1 weighted, sagi ttal and axial T2 weighted, and sagittal T2 weighted with fat saturation. COMPARISON: CT cervical spine 02/24/2016. FINDINGS: Slight reversal of the normal lordosis of the mid cervical spine is evident. Mild anterolisthesis o f C4 on C5 and C7 on T1 is evident. Trace retrolisthesis is evident at C5-6. The vertebral bodies are overall normal in height. There is very subtle marrow edema in the superior endplate of C4, whi ch is thought to be degenerative rather than related to a fracture, though microtrabecular injury is possible. The C3 vertebral body demonstrates similar but less pronounced changes, again thought to be related to degenerative reactive marrow changes. The craniocervical junction is unremarkable. There is evidence of a very small amount of prevertebral fluid. C2-3: The disk is normal in height. No significant disk bulge or protrusion is seen per the central canal is adequately patent. Facet arthropathy and uncovertebral osteophytes results in mild to moder ate left foraminal narrowing, better appreciated on MRI. The right foramen is adequately patent. C3-4: The disk is normal in height there is an osteophyte/disk complex, which together with ligament um flavum hypertrophy results in moderate - severe acquired central canal stenosis with the AP diame ter measuring just under 7 mm. Uncovertebral osteophytes and facet arthropathy contributes to moder ately severe bilateral foraminal narrowing. Very minimal edema is seen in the interspinous soft tiss ues, which could reflect mild ligamentous strain. The anterior longitudinal ligament appears grossl y intact. C4-5: There is moderate disk space narrowing. There is some irregularity of the anterior annulus wit h a focal high intensity zone suspicious for an annular fissure/tear. There is prevertebral fluid i n this location. The possibility of injury to the anterior longitudinal ligament cannot be excluded , though a large defect is not visible. There is evidence of mild T2-weighted hyperintensity in the posterior paraspinal soft tissues and interspinous soft tissues which may reflect muscular and liga mentous strain. The ligamentum flavum appears grossly intact as does the posterior longitudinal lig ament. There is a broad based osteophyte/disk complex, which together with ligamentum flavum hypert rophy results in severe acquired central canal stenosis with the AP diameter measuring just under 4 mm. There is cord compression. Severe bilateral foraminal narrowing is seen related primarily to t o severe facet arthropathy the prominent uncovertebral osteophytes are also seen. The findings are more pronounced on the left than right. Mild acute inflammatory facet arthropathy is seen on the le ft. C5-6: Moderate - severe discogenic disease is noted. A broad based osteophyte/disk complex and liga mentum flavum hypertrophy results in severe acquired central canal stenosis with the AP diameter juve suring approximately 3.7 mm. There is cord compression. There appears to be increased T2-weighted s ignal intensity seen within the cord at the C5 level and likely C5-6 disk level, concerning for myel omalacia/edema. No definite ligamentous injury is seen at this level. Severe bilateral foraminal na rrowing is identified. C6-7: Moderately severe discogenic disease is evident. A broad based osteophyte/disk complex and li gamentum flavum hypertrophy results in severe acquired central canal stenosis with the AP diameter m easuring approximately 6 mm. There is effacement of the thecal sac mild cord compromise but no cord signal abnormality. Uncovertebral osteophytes and facet arthropathy contribute to severe bilateral foraminal narrowing. C7-T1: Mild discogenic disease is evident. There is an osteophyte/disk complex, which together with ligamentum flavum hypertrophy results in mild central stenosis. The foramen are adequately patent. The postcontrast images show no abnormal enhancement. IMPRESSION: 1. There is evidence of a very small amount of prevertebral fluid. There is the suggestion of poss ible injury to the anterior longitudinal ligament at C4-[address] suspected interspinous ligamentous [address] rain/injury at C3-4 and C4-5. The posterior longitudinal ligaments and ligamentum flavum appear int act. Very minimal marrow edema is seen in the superior endplates of C4 and less so at C3, which is thought to be degenerative though microtrabecular injury may be present. There is no significant ve rtebral body height loss. 2. 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 3. There is also severe acquired central canal stenosis at C4-5 and C6-7, more pronounced at C4-5 w here there appears to be cord compression but no cord signal abnormality. 4. There is moderate - severe acquired central canal stenosis at C3-4. 5. Multilevel significant foraminal stenosis as outlined above. COMMENT: A call report was to the patient's RN, Leticia, regarding the presence of cord compression. RPTAT: HJAH .Danelle Manuel MD, MD Date Time Electronically viewed and signed by .Danelle Manuel MD, MD on 02/26/2016 09:59 .H/
[2016-02-26] MEDS: CEFEPIME 1GM/50 ML (PMX) 50 ML IVPB SCH ×2 (10:11→20:25)
[2016-02-26] MEDS: FAMOTIDINE 20 MG TAB PO SCH (10:12)
[2016-02-26] MEDS ORDERED: morphine 2 MG INJ IV SCH (11:45)
[2016-02-26] MEDS: SOD CHLORIDE 0.9% 1,000 ML IV SCH (14:00)
[2016-02-26] MEDS: ACETAMINOPHEN 325 MG TAB PO PRN (15:23)
[2016-02-26] MEDS: morphine 10 MG INJ IV PRN ×2 (16:41→23:44)
[2016-02-26] MEDS: ONDANSETRON 4 MG INJ IV PRN (18:12)
--- NOTE | 2016-02-26 18:32 | PN ---
Date/Time of Note Date/Time of Note DATE: 02/26/16 TIME: 18:31 Assessment/Plan Lines/Catheters IV Catheter Type (from Nrsg): Peripheral IV Francois in Place (from Nrsg): Yes Assessment/Plan Chief Complaint/Hosp Course SP VATS Decortication will continue CT Sxn Problems: Subjective 24 Hr Interval Summary Constitutional: improved Pain Control: mild Exam/Review of Systems Vital Signs Vitals Vital Signs Date Time Temp Pulse Resp B/P Pulse Ox O2 Delivery O2 Flow Rate FiO2 02/26/16 17:30 90 19 123/39 91 Nasal Cannula 2.0 02/26/16 16:00 98.8 02/26/16 08:10 99 Intake and Output 02/25/16 02/25/16 02/26/16 15:00 23:00 07:00 Intake Total 600 ml 400 ml 425 ml Output Total 553 ml 357 ml Balance 600 ml -153 ml 68 ml Exam Neck: non-tender, supple Respiratory: clear to auscultation, normal air movement Cardiovascular: nl pulses, regular rate and rhythm Gastrointestinal: nl liver, spleen, non-tender, soft Results Result Diagram: 02/26/16 0525 02/26/16 0525 SE PETIT MD Feb 26, 2016 18:32
--- NOTE | 2016-02-26 19:17 | PN ---
Date/Time of Note Date/Time of Note DATE: 02/26/16 TIME: 19:15 Assessment/Plan VTE Prophylaxis VTE Prophylaxis Intervention: other Lines/Catheters IV Catheter Type (from Nrsg): Peripheral IV Urinary Cath still in place: Yes Reason Cath still needed: other (indicate) Assessment/Plan Chief Complaint/Hosp Course 1. Left video-assisted thoracic surgery, total pulmonary decortication. 2. Control of chest bleeding. 3. Bronchoscopy 4 s/p fall 5 lung infilterate 6 hyponatremia 7 djd 8 ddd 9 hx htn 10 positive gold test plan per dr howe and neuro surgery labs id dr everett pain meds Problems: Subjective 24 Hr Interval Summary Respiratory: shortness of breath (+) Cardiovascular: no complaints Gastrointestinal: no complaints Exam/Review of Systems Vital Signs Vitals Vital Signs Date Time Temp Pulse Resp B/P Pulse Ox O2 Delivery O2 Flow Rate FiO2 02/26/16 18:30 99 12 127/53 100 Nasal Cannula 2.0 02/26/16 16:00 98.8 02/26/16 08:10 99 Intake and Output 02/25/16 02/25/16 02/26/16 15:00 23:00 07:00 Intake Total 600 ml 400 ml 425 ml Output Total 553 ml 357 ml Balance 600 ml -153 ml 68 ml Exam Neck: supple Respiratory: diminished breath sounds Cardiovascular: regular rate and rhythm Gastrointestinal: soft Musculoskeletal: nl extremities to inspection Extremities: normal pulses Results Result Diagram: 02/26/16 0525 02/26/16 0525 Results 24 hrs Laboratory Tests Test 02/26/16 05:25 Acanthocytes OCCASIONAL Alanine Aminotransferase (ALT/SGPT) 54 Albumin 2.4 L Albumin/Globulin Ratio 0.88 Alkaline Phosphatase 94 Anion Gap 14 Anisocytosis 1+ Aspartate Amino Transf (AST/SGOT) 41 Basophils # 0.0 Basophils % 0.2 Blood Morphology Comment Blood Urea Nitrogen 17 Calcium Level 7.6 L Carbon Dioxide Level 18 L Chloride Level 103 Creatinine 0.73 Direct Bilirubin 0.00 Eosinophils # 0.0 Eosinophils % 0.1 Globulin 2.70 Glucose Level 95 Hematocrit 25.7 L Hemoglobin 8.6 L Indirect Bilirubin 0.3 Lymphocytes # 0.9 Lymphocytes % 4.8 L Mean Corpuscular Hemoglobin 32.3 Mean Corpuscular Hemoglobin Concent 33.5 Mean Corpuscular Volume 96.3 Mean Platelet Volume 8.8 Monocytes # 0.9 Monocytes % 4.6 Neutrophils # 17.2 H Neutrophils % 90.3 H Nucleated Red Blood Cells # 0.0 Nucleated Red Blood Cells % 0.0 Platelet Count 270 Potassium Level 4.1 Red Blood Count 2.67 L Red Cell Distribution Width 17.7 H Sodium Level 131 L Total Bilirubin 0.3 Total Protein 5.1 L White Blood Count 19.0 H Medications Medications Current Medications Lorazepam (Ativan) 0.5 mg Q6H PRN IV ANXIETY Last administered on 02/26/16 02: 02; Admin Dose 0.5 MG; Start 02/24/16 at 02:00 Ondansetron HCl (Zofran Inj) 4 mg Q6H PRN IV NAUSEA AND/OR VOMITING Last administered on 02/26/16 18:12; Admin Dose 4 MG; Start 02/24/16 at 02:00 Nitroglycerin (Nitroglycerin (Sl Tab) 0.4 Mg) 1 tab Q5M PRN SL CHEST PAIN; Start 02/24/16 at 02:00 Acetaminophen (Tylenol Tab) 650 mg Q6H PRN PO PAIN LEVEL 1-3 OR FEVER Last administered on 02/26/16 15:23; Admin Dose 650 MG; Start 02/24/16 at 02:00 Acetaminophen/ Hydrocodone Bitart (Gibson (5/325)) 1 tab Q6H PRN PO PAIN LEVEL 4 -6 Last administered on 02/26/16 08:16; Admin Dose 1 TAB; Start 02/24/16 at 02: 00 Famotidine (Pepcid) 20 mg DAILY PO Last administered on 02/26/16 10:12; Admin Dose 20 MG; Start 02/24/16 at 09:00 Hydralazine HCl 10 mg 10 mg Q6H PRN IV SBP > 160 Last administered on 06:44; Admin Dose 10 MG; Start 02/24/16 at 02:00 Cefepime HCl 50 ml @ 100 mls/hr Q12 IVPB Last administered on 02/26/16 10:11 ; Admin Dose 100 MLS/HR; Start 02/24/16 at 09:00 Vancomycin HCl/ Sodium Chloride (Vancocin/NS) 150 ml @ 75 mls/hr Q24H IVPB Last administered on 02/26/16 02:01; Admin Dose 75 MLS/HR; Start 02/25/16 at 02 :00 Levothyroxine Sodium (Synthroid) 50 mcg DAILY@06 PO Last administered on 06:10; Admin Dose 50 MCG; Start 02/25/16 at 06:00 Labetalol HCl (Labetalol) 10 mg Q6 PRN IV ELEVATED BLOOD PRESSURE; Start at 23:00 Guaifenesin/ Dextromethorphan (Robitussin Dm Liquid Cup) 5 ml Q6 PRN PO COUGH Last administered on 02/25/16 10:44; Admin Dose 5 ML; Start 02/24/16 at 23:00 Nicotine (Nicoderm 21 Mg/ 24hr) 1 patch DAILY TRANSDERM Last administered on 09:16; Admin Dose 1 PATCH; Start 02/26/16 at 09:00 Morphine Sulfate (morphine) 6 mg Q4H PRN IV SEVERE PAIN LEVEL 7-10 Last administered on 02/26/16 16:41; Admin Dose 6 MG; Start 02/26/16 at 11:30 Miscellaneous Information (*Rx Drug Level Order Reminder*) VANCO TROUGH @ 0, 100 ON... ONCE ONCE XX ; Start 02/27/16 at 01:00; Stop 02/27/16 at 01:01 Docusate Sodium (Colace) 100 mg BID PO Last administered on 02/26/16 14:27; Admin Dose 100 MG; Start 02/26/16 at 21:00 REMINGTON ZELAYA MD Feb 26, 2016 19:17
[2016-02-27] VITALS (25 sets, daily range): BP systolic 113–163; BP diastolic 34–89; PULSE 80–111; RESP 11–25
[2016-02-27] MEDS: ACETAMINOPHEN 325 MG TAB PO PRN ×2 (00:35→07:46)
[2016-02-27] MEDS ORDERED: VANCOMYCIN 1.25 GM in SOD CHLORIDE 0.9% 250 ML IVPB SCH (02:00)
[2016-02-27] MEDS: HYDROCODONE/APAP (5/325) TAB PO PRN (04:14)
[2016-02-27 05:07] LABS: HEMATOCRIT 25.1 % (37.0-47.0); HEMOGLOBIN 8.6 g/dl (12.0-16.0); MEAN CORPUSCULAR HEMOGLOBIN 32.7 pg (29.0-33.0); MEAN CORPUSCULAR HGB CONC 34.1 g/dl (32.0-37.0); MEAN CORPUSCULAR VOLUME 95.7 fl (82.0-101.0); MEAN PLATELET VOLUME 8.8 fl (7.4-10.4); PLATELET COUNT 215 10^3/UL (140-440); RED BLOOD COUNT 2.63 10^6/ul (4.20-5.40); RED CELL DISTRIBUTION WIDTH 17.6 % (11.5-14.5); UNCORRECTED WBC 22.5 10^3/ul (4.8-10.8); WHITE BLOOD COUNT 22.5 10^3/ul (4.8-10.8)
[2016-02-27 05:19] LABS: CONDITION 1; LH ANALYZER COMMENTS 1; SUSPECT 1
[2016-02-27] MEDS: LEVOTHYROXINE 50 MCG TAB PO SCH (05:41)
[2016-02-27 05:50] LABS: ALBUMIN 2.2 g/dl (3.3-4.9); POTASSIUM 3.6 mmol/L (3.5-5.1)
[2016-02-27 05:52] LABS: CREATININE 0.8 mg/dl (0.44-1.00)
[2016-02-27 05:53] LABS: ALBUMIN/GLOBULIN RATIO 0.78; BILIRUBIN,INDIRECT 0.6 mg/dl (0-1.1); BILIRUBIN,TOTAL 0.6 mg/dl (0.2-1.3); CALCIUM 7.7 mg/dl (8.4-10.2)
[2016-02-27] MEDS: morphine 10 MG INJ IV PRN ×3 (08:32→21:45)
[2016-02-27] MEDS: FAMOTIDINE 20 MG TAB PO SCH (08:47)
[2016-02-27] MEDS: CEFEPIME 1GM/50 ML (PMX) 50 ML IVPB SCH ×2 (08:47→20:49)
[2016-02-27] MEDS: DOCUSATE SODIUM 100 MG CAP PO SCH ×2 (08:47→20:50)
[2016-02-27] MEDS: NICOTINE (21 MG/24 HR) PATCH TRANSDERM SCH (08:47)
[2016-02-27 10:07] LABS: ANISOCYTOSIS 1+; BURR CELLS OCCASIONAL; LYMPHOCYTES # 1.1 10^3/ul (0.8-2.9); MONOCYTE # 2.3 10^3/ul (0.3-0.9)
--- NOTE | 2016-02-27 12:47 | PN ---
Date/Time of Note Date/Time of Note DATE: 02/27/16 TIME: 12:46 Assessment/Plan Lines/Catheters IV Catheter Type (from Nrsg): Peripheral IV Francois in Place (from Nrsg): Yes Assessment/Plan Chief Complaint/Hosp Course SP VATS Decortication CT [address] Sxn Problems: Subjective 24 Hr Interval Summary Constitutional: improved Pain Control: mild Exam/Review of Systems Vital Signs Vitals Vital Signs Date Time Temp Pulse Resp B/P Pulse Ox O2 Delivery O2 Flow Rate FiO2 02/27/16 12:00 89 02/27/16 09:00 13 114/38 100 Nasal Cannula 2.0 02/27/16 08:00 100.3 02/26/16 08:10 99 Intake and Output 02/26/16 02/26/16 02/27/16 15:00 23:00 07:00 Intake Total 465 ml 250 ml 449.93 ml Output Total 350 ml 425 ml 440 ml Balance 115 ml -175 ml 9.93 ml Exam Neck: non-tender, supple Respiratory: clear to auscultation, normal air movement Cardiovascular: nl pulses, regular rate and rhythm Results Result Diagram: 02/27/16 0340 02/27/16 0340 SE PETIT MD Feb 27, 2016 12:46
--- NOTE | 2016-02-27 15:58 | PN ---
Date/Time of Note Date/Time of Note DATE: 02/27/16 TIME: 15:57 Assessment/Plan VTE Prophylaxis VTE Prophylaxis Intervention: other Lines/Catheters IV Catheter Type (from Nrsg): Peripheral IV Urinary Cath still in place: Yes Reason Cath still needed: other (indicate) Assessment/Plan Chief Complaint/Hosp Course 1. Left video-assisted thoracic surgery, total pulmonary decortication. 2. Control of chest bleeding. 3. Bronchoscopy 4 s/p fall 5 lung infilterate 6 hyponatremia 7 djd 8 ddd 9 hx htn 10 positive gold test 11 UTI 12HYPOTHYROIDISM plan per dr howe and neuro surgery labs id dr everett SYNTHROID pain meds Problems: Subjective 24 Hr Interval Summary Respiratory: no complaints Cardiovascular: no complaints Gastrointestinal: no complaints Genitourinary: no complaints Exam/Review of Systems Vital Signs Vitals Vital Signs Date Time Temp Pulse Resp B/P Pulse Ox O2 Delivery O2 Flow Rate FiO2 02/27/16 15:00 83 13 140/53 100 Nasal Cannula 02/27/16 14:00 2.0 02/27/16 12:00 98.2 02/26/16 08:10 99 Intake and Output 02/26/16 02/26/16 02/27/16 15:00 23:00 07:00 Intake Total 465 ml 250 ml 449.93 ml Output Total 350 ml 425 ml 440 ml Balance 115 ml -175 ml 9.93 ml Exam Respiratory: diminished breath sounds Cardiovascular: regular rate and rhythm Gastrointestinal: soft Musculoskeletal: nl extremities to inspection Results Result Diagram: 02/27/16 0340 02/27/16 0340 Results 24 hrs Laboratory Tests Test 02/27/16 01:00 02/27/16 03:40 Vancomycin Level Trough 7.4 L Alanine Aminotransferase (ALT/SGPT) 47 Albumin 2.2 L Albumin/Globulin Ratio 0.78 Alkaline Phosphatase 98 Anion Gap 13 Anisocytosis 1+ Aspartate Amino Transf (AST/SGOT) 29 Band Neutrophils % 14.0 H Basophils # Basophils % Blood Morphology Comment Blood Urea Nitrogen 19 Calcium Level 7.7 L Carbon Dioxide Level 19 L Chloride Level 103 Creatinine 0.80 Differential Comment MANUAL DIFF Direct Bilirubin 0.00 Eosinophils # Eosinophils % Giant Platelets RARE Globulin 2.80 Glucose Level 83 Hematocrit 25.1 L Hemoglobin 8.6 L Indirect Bilirubin 0.6 Large Platelets OCCASIONAL Lymphocytes # 1.1 Lymphocytes % 5.0 L Mean Corpuscular Hemoglobin 32.7 Mean Corpuscular Hemoglobin Concent 34.1 Mean Corpuscular Volume 95.7 Mean Platelet Volume 8.8 Monocytes # 2.3 H Monocytes % 10.0 Neutrophils # 16.0 H Neutrophils % 71.0 Nucleated Red Blood Cells # Nucleated Red Blood Cells % Platelet Count 215 # Potassium Level 3.6 Red Blood Count 2.63 L Red Cell Distribution Width 17.6 H Sodium Level 131 L Total Bilirubin 0.6 Total Protein 5.0 L White Blood Count 22.5 H Medications Medications Current Medications Lorazepam (Ativan) 0.5 mg Q6H PRN IV ANXIETY Last administered on 02/26/16 02: 02; Admin Dose 0.5 MG; Start 02/24/16 at 02:00 Ondansetron HCl (Zofran Inj) 4 mg Q6H PRN IV NAUSEA AND/OR VOMITING Last administered on 02/26/16 18:12; Admin Dose 4 MG; Start 02/24/16 at 02:00 Nitroglycerin (Nitroglycerin (Sl Tab) 0.4 Mg) 1 tab Q5M PRN SL CHEST PAIN; Start 02/24/16 at 02:00 Acetaminophen (Tylenol Tab) 650 mg Q6H PRN PO PAIN LEVEL 1-3 OR FEVER Last administered on 02/27/16 07:46; Admin Dose 650 MG; Start 02/24/16 at 02:00 Acetaminophen/ Hydrocodone Bitart (Smock (5/325)) 1 tab Q6H PRN PO PAIN LEVEL 4 -6 Last administered on 02/27/16 04:14; Admin Dose 1 TAB; Start 02/24/16 at 02: 00 Famotidine (Pepcid) 20 mg DAILY PO Last administered on 02/27/16 08:47; Admin Dose 20 MG; Start 02/24/16 at 09:00 Hydralazine HCl 10 mg 10 mg Q6H PRN IV SBP > 160 Last administered on 06:44; Admin Dose 10 MG; Start 02/24/16 at 02:00 Cefepime HCl (Maxipime 1gm/50 ml (Pmx)) 50 ml @ 100 mls/hr Q12 IVPB Last administered on 02/27/16 08:47; Admin Dose 100 MLS/HR; Start 02/24/16 at 09:00 Levothyroxine Sodium (Synthroid) 50 mcg DAILY@06 PO Last administered on 05:41; Admin Dose 50 MCG; Start 02/25/16 at 06:00 Labetalol HCl (Labetalol) 10 mg Q6 PRN IV ELEVATED BLOOD PRESSURE; Start at 23:00 Guaifenesin/ Dextromethorphan (Robitussin Dm Liquid Cup) 5 ml Q6 PRN PO COUGH Last administered on 02/25/16 10:44; Admin Dose 5 ML; Start 02/24/16 at 23:00 Nicotine (Nicoderm 21 Mg/ 24hr) 1 patch DAILY TRANSDERM Last administered on 08:47; Admin Dose 1 PATCH; Start 02/26/16 at 09:00 Morphine Sulfate (morphine) 6 mg Q4H PRN IV SEVERE PAIN LEVEL 7-10 Last administered on 02/27/16 08:32; Admin Dose 6 MG; Start 02/26/16 at 11:30 Docusate Sodium 100 mg 100 mg BID PO Last administered on 02/27/16 08:47; Admin Dose 100 MG; Start 02/26/16 at 21:00 Vancomycin HCl (Vancocin) 100 ml @ 100 mls/hr Q12H IVPB ; Start 02/27/16 at 20: 00 REMINGTON ZELAYA MD Feb 27, 2016 15:58
--- NOTE | 2016-02-27 16:38 | CONS ---
DATE OF ADMISSION: 02/24/2016 DATE OF CONSULTATION: 02/27/2016 TYPE OF CONSULTATION: Infectious Disease. REASON FOR CONSULTATION: Antibiotic management. HISTORY OF PRESENT ILLNESS: Allison Aguilar is a 80-year-old female with numerous proble ms who comes in with chest pain and is being seen for antibiotic management. Her past problems incl ude: 1. Essential hypertension. 2. Status post appendectomy. Acutely, she complains of chest pain with cough and cold symptoms. She recently came from [place] wh ere she sustained a fall and had 4 ribs fractured with pneumothorax as a result. She had a le ft chest tube placed and removed in a hospital in [place]. She now complains of chest pain and short ness of breath with productive cough, fever, chills and headache, as well as dizziness. She denies any TB contacts, but she has a QuantiFERON Gold positive. She just arrived from [place]. She denies any loss of consciousness, urinary or bowel irregularities or other constitutional symptoms. On admission, her white count was 8.8, H and H 10.8 and 31.9, platelet count of 403,000. BUN and cr eatinine are 23/0.87. The patient was started initially on vancomycin. Chest x-ray showed left low er lobe pneumonia, small left pleural effusion with possible extension into the left major fissure. Recommend CT scan for further evaluation. HOSPITAL COURSE: The patient had a CT scan of the thorax. She had a CT angiogram. No evidence of aortic dissection or aneurysm, no evidence of pulmonary embolus, acute fractures of left 2nd through 12th rib with fractures of the 2nd through the 11th rib in at least 2 places. Moderate left hemith orax, associated atelectasis, mucous plugging in the left lower lobe, acute fractures of left T3 thr ough T12 and L1 through L4 transverse processes, moderate to marked narrowing of the proximal superi or mesenteric artery. A CT scan was done of the thoracic spine which showed multiple medial posterior rib fractures as jelani cribed, as well as fractures through the left transverse processes from T6 and T12. She had lumbar and cervical spine CT scans done as well, which showed the same. In the cervical spine there was no definite fracture. She has degenerative changes with disk protrusions, most pronounced at C4-C5 an d C5-C6 with spinal stenosis at least at C5-C6. MRI was recommended and cervical MRI showed a very small amount of prevertebral fluid. There is a suggestion of possible injury to the anterior longit udinal ligament at C4-C5 with suspected interspinous ligament strain injury at C3-C4 and C4-C5. The re is severe acquired central canal stenosis at C5-C6 with cord compression and cord signal abnormal ity, most concerning for edema and myelomalacia. Severe acquired central canal stenosis at C4-C5 an d C6-C7, more pronounced at C4-C5 where there appears to be cord compression, but no cord signal abn ormality. There is severe acquired central canal stenosis at C3-C4, multilevel significant foramina l stenosis as outlined above. The patient had blood cultures, one of which grew gram-positive cocci in clusters and she has entero coccus in her urine. She is currently on vancomycin. She was seen by Dr. Patel who recommended video-assisted thoracic surgery and decortication for left hemothorax status post fall. On the 13t h, the patient had a left VATS decortication by Dr. Patel. She was seen by Dr. Macario, [facility]. He did not think she was unstable. He assessed the degree of stenosis. A brace or lumbar c orset may be of benefit to her for pain relief when she is ambulating. She is recuperating from karie st tube placement for hemothorax from multiple fractures. On the 14th, white count was 19.0, H and H of 8.6 and 25.7, platelet count 270,000. BUN and creatin ine 17/0.73. She is now status post VATS. She had total pulmonary decortication, control of the ch est bleeding and bronchoscopy, status post fall, QuantiFERON Gold positive. PAST MEDICAL HISTORY: Operations as outlined. FAMILY HISTORY: Noncontributory. SOCIAL HISTORY: She does not smoke, drink or abuse drugs. ALLERGIES: NONE TO PENICILLIN, SULFA OR FOODS. MEDICATIONS: Per chart. REVIEW OF SYSTEMS: As per HPI. PHYSICAL EXAMINATION: GENERAL: The patient is an elderly appearing female who is alert, responsive, in no acute distress. VITAL SIGNS: Stable. She is afebrile. SKIN: Without generalized rash. HEENT: Within normal limits. NECK: Supple. LYMPH NODES: None palpable. CHEST: Decreased breath sounds at the bases, left greater than right. HEART: Without murmur or gallop. ABDOMEN: Soft, nontender, without organosplenomegaly or masses. EXTREMITIES: Without cyanosis, clubbing, or edema. RECTAL AND GENITAL: Deferred. NEUROLOGIC: No focal neurological abnormalities. IMPRESSION AND PLAN: The patient is on vancomycin for enterococcus in the urine. She has gram-posi tive cocci in her blood and certainly that could be a contaminant or real. We can repeat her blood cultures. With regard to the QuantiFERON Gold, I would not be surprised if a 80-year-old female wou ld be positive for reaction to TB; however, there is no evidence of acute pulmonary TB At this point , the changes in her lung are a result it would seem of trauma. I would not put her on INH or on an tituberculous therapy. I will dictate my findings to Dr. Arroyo, Dr. Patel, Dr. Macario and the hospitalist. Dictated By: JUAN HUGHES MD, JD/JOSUÉ Conf#: [id number] DID#: [id number]
--- NOTE | 2016-02-27 16:45 | CONS ---
DATE OF ADMISSION: 02/24/2016 DATE OF CONSULTATION: ADDENDUM The patient was also placed on cefepime, so she is on vancomycin and cefepime. We can repeat blood cultures and urine. Dictated By: JUAN HUGEHS MD, JD/JOSUÉ Conf#: [id number] DID#: [id number]
[2016-02-27] MEDS: GUAIFENESIN/DM 5ML CUP PO PRN (18:12)
[2016-02-27] MEDS: VANCOMYCIN 500MG/NS (PMX) 100 ML IVPB SCH (19:58)
[2016-02-28] VITALS (26 sets, daily range): BP systolic 103–153; BP diastolic 40–89; PULSE 90–112; RESP 10–25
[2016-02-28] MEDS: morphine 10 MG INJ IV PRN ×4 (01:27→19:43)
[2016-02-28] MEDS: LEVOTHYROXINE 25 MCG TAB PO SCH (06:07)
[2016-02-28 06:40] LABS: ALBUMIN 2.3 g/dl (3.3-4.9); POTASSIUM 4.2 mmol/L (3.5-5.1)
[2016-02-28 06:42] LABS: BILIRUBIN,INDIRECT 0.4 mg/dl (0-1.1); BILIRUBIN,TOTAL 0.4 mg/dl (0.2-1.3); CREATININE 1.18 mg/dl (0.44-1.00)
[2016-02-28 06:43] LABS: ALBUMIN/GLOBULIN RATIO 0.76; CALCIUM 8.1 mg/dl (8.4-10.2); TOTAL PROTEIN 5.3 g/dl (6.1-8.1)
[2016-02-28 06:48] LABS: HEMATOCRIT 31.6 % (37.0-47.0); HEMOGLOBIN 10.7 g/dl (12.0-16.0); MEAN CORPUSCULAR HEMOGLOBIN 32.5 pg (29.0-33.0); MEAN CORPUSCULAR HGB CONC 33.8 g/dl (32.0-37.0); MEAN CORPUSCULAR VOLUME 96.1 fl (82.0-101.0); PLATELET COUNT 247 10^3/UL (140-440); RED BLOOD COUNT 3.29 10^6/ul (4.20-5.40); RED CELL DISTRIBUTION WIDTH 17.9 % (11.5-14.5); UNCORRECTED WBC 27.2 10^3/ul (4.8-10.8); WHITE BLOOD COUNT 27.2 10^3/ul (4.8-10.8)
[2016-02-28 07:02] LABS: CONDITION 1; LH ANALYZER COMMENTS 1; SUSPECT 1
[2016-02-28] MEDS: VANCOMYCIN 500MG/NS (PMX) 100 ML IVPB SCH (08:06)
[2016-02-28] MEDS: DOCUSATE SODIUM 100 MG CAP PO SCH ×2 (08:06→21:07)
[2016-02-28] MEDS: NICOTINE (21 MG/24 HR) PATCH TRANSDERM SCH (08:06)
[2016-02-28] MEDS: FAMOTIDINE 20 MG TAB PO SCH (08:06)
[2016-02-28] MEDS: HYDROCODONE/APAP (5/325) TAB PO PRN (08:17)
[2016-02-28] MEDS: CEFEPIME 1GM/50 ML (PMX) 50 ML IVPB SCH (09:24)
[2016-02-28] MEDS: ONDANSETRON 4 MG INJ IV PRN ×2 (09:56→15:32)
[2016-02-28 10:07] LABS: LYMPHOCYTES # 0.8 10^3/ul (0.8-2.9); MONOCYTE # 1.6 10^3/ul (0.3-0.9); MYELOCYTES # 0.3; NEUTROPHIL # 17.7 10^3/ul (1.6-7.5)
--- NOTE | 2016-02-28 11:15 | RADRPT ---
PROCEDURE: CT Abdomen and Pelvis without contrast. CLINICAL INDICATION: Fall, pain TECHNIQUE: CT of the abdomen and pelvis was performed on a multi-detector scanner without IV contr ast. Coronal and sagittal images were reformatted from the axial data set. One or more of the foll owing dose reduction techniques were used: automated exposure control, adjustment of the mA and/or kV according to patient size, use of iterative reconstruction technique. CTDI = 6.53 mGy. DLP = 368 .58 mGy-cm. COMPARISON: CT, 02/24/2016 FINDINGS: CT abdomen: Left-sided chest tube is in place. There are mild bilateral pleural effusions. 11 mm left lower lo be pulmonary nodule is identified (3-26). Multiple left-sided rib fractures are again noted, unchan ged from the prior CT. The heart size is normal, without pericardial effusion. Liver demonstrates a small benign cyst, stable over time. Gallbladder, biliary tree, pancreas, spleen, adrenal glands and kidneys are unremarkable except for benign renal cysts. No urolithiasis or obstructive uropathy is identified. The stomach is mildly fluid distended, but otherwise grossly appears unremarkable. The aorta is of normal caliber. Aortic vascular calcifications are present. There is no retroperit ayala lymphadenopathy. The cassy hepatis region is clear. CT pelvis: Diffuse colonic wall thickening and pericolonic inflammation are identified, new when compared to th e prior CT, compatible with diffuse colitis. Mild amount of low-density peritoneal free fluid is no miguel, also new, likely reactive. No bowel obstruction, free intraperitoneal air or hemoperitoneum is identified. There is no diverticulosis, diverticulitis, or appendicitis. Francois catheter balloon i s within the urinary bladder. Uterus and adnexa are grossly unremarkable. No pelvic mass or lympha denopathy is seen. The surrounding osseous structures are remarkable for degenerative spondylosis of the spine. There are mildly displaced acute fractures of the left transverse processes of T7-L4, unchanged from the p rior CT. No osteolytic or osteoblastic lesion is detected. Mild anasarca is noted, new when compare d to the prior exam. IMPRESSION: 1. Moderate to severe diffuse colitis is noted, new when compared to the prior CT. Mild amount of low-density peritoneal free fluid is present, also new, likely reactive. 2. Indeterminate 11 mm pulmonary nodule is identified at the left lung base - correlation with prio r cross-sectional imaging and/or short interval follow-up in 3 months are recommended to assess inte rval stability. 3. Left-sided chest tube is in place. There are mild bilateral pleural effusions. 4. Multiple left-sided rib fractures and mildly displaced fractures of the T7-L4 left transverse pr ocesses are again noted, unchanged from the prior CT. 5. Aortoiliac atherosclerotic calcifications are present. 6. Francois catheter balloon is within the urinary bladder. 7. Mild anasarca is noted, new when compared to the prior exam. RPTAT: TT .Kwadwo Richard MD, MD Date Time Electronically viewed and signed by .Kwadwo Richard MD, MD on 02/28/2016 11:14 .R/
--- NOTE | 2016-02-28 11:19 | RADRPT ---
PROCEDURE: XR Abdomen. CLINICAL INDICATION: Abdominal pain TECHNIQUE: Two views of the abdomen are available for review. COMPARISON: CT, 02/28/2016 FINDINGS: There is evidence of colonic mucosal thickening, compatible with colitis as seen on CT performed the same day. There is no evidence of bowel obstruction. There are no abnormal calcifications overlyin g the urinary tracts. The osseous structures are unremarkable. IMPRESSION: 1. Findings suggestive of diffuse colitis, as above. 2. No bowel obstruction is identified. RPTAT: TT .Kwadwo Richard MD, MD Date Time Electronically viewed and signed by .Kwadwo Richard MD, MD on 02/28/2016 11:18 .R/
[2016-02-28 11:22] LABS: ALBUMIN 2.4 g/dl (3.3-4.9); CHLORIDE 101 mmol/L (97-110); POTASSIUM 4.4 mmol/L (3.5-5.1); SODIUM 129 mmol/L (135-144)
[2016-02-28 11:25] LABS: ALANINE AMINOTRANSFERASE 33 IU/L (13-69); ALKALINE PHOSPHATASE 124 IU/L (42-121); ANION GAP 17 (8-16); ASPARTATE AMINO TRANSFERASE 20 IU/L (15-46); BILIRUBIN,INDIRECT 0.4 mg/dl (0-1.1); BILIRUBIN,TOTAL 0.4 mg/dl (0.2-1.3); BLOOD UREA NITROGEN 31 mg/dl (7-20); CALCIUM 7.6 mg/dl (8.4-10.2); CARBON DIOXIDE 15 mmol/L (21-31); GLUCOSE 112 mg/dl (70-220); TOTAL PROTEIN 5.4 g/dl (6.1-8.1)
[2016-02-28 11:32] LABS: AMYLASE < 30 U/L (11-123)
[2016-02-28] MEDS: CALCIUM CARBONATE 500 MG CHEW TAB PO SCH ×3 (12:17→21:06)
--- NOTE | 2016-02-28 13:09 | CONS ---
Date/Time of Note Date/Time of Note DATE: 02/28/16 TIME: 13:08 Assessment/Plan Assessment/Plan Chief Complaint/Hosp Course ID PROGRESS NOTE TOTAL ABX DAY # 5 => Vanco IV, Cefepime 24H INTERVAL SUMMARY * POD#3 -> 02/25/16 VATS for Left Hemothorax * BCX 02/24/16 1/2 bottles (+)Staph-CoNS = skin contaminant * Urine w/ URINE CULTURE Final ENTEROCOCCUS SPECIES COLONY COUNT <10,000 CFU/ml * DIAGNOSTIC CT ABD: IMPRESSION: No evidence of aortic dissection or aneurysm. No evidence of pulmonary embolus. Acute fractures of the left second through 12th ribs, with fractures of the 2nd through 11th ribs in at least 2 places. Please correlate for flail chest. Moderate left hemothorax with associated atelectasis. Mucous plugging in the left lower lobe. Acute fractures of the left T3-T12 and L1-L4 transverse processes. 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 PHYSICAL EXAMINATION: GENERAL: 80 yo F on supplemental O2 HEENT: Unremarkable NECK: Supple, trachea midline. CHEST: Miild tachypnea w/CT in place HEART: RRR ABDOMEN: Soft EXTREMITIES: Warm ID ASSESSMENT: 80 yo F s/p fall from roof in [place]->C-spine injury, 4-rb fx w/left PTX/ Hemothorax, s/p CT removed in [place] admit: POD#3 -> 02/25/16 VATS for Left Hemothorax 1. Acute hypoxic respiratory failure w/Shortness of breath - 2/2 to Left Hemothorax/PTx w/LLL PNA 2. Acute Spine Injuries * C-Spine Injury: grade 1 anterolisthesis C4-5 and C7-1 without fracture. * Acute fractures of the left T3-T12 and L1-L4 transverse processes. 3. Sepsis w/Fevers >103.+, Leukocytosis, tachycardia 4. STAPH-CoNS Bacteremia on admission 1/2 bottles = possible skin contaminant 5. Diffuse Colitis on CT = possible ischemic colitis vs ABX associated 6. PAD=> Moderate to marked narrowing of the proximal superior mesenteric artery. 7. Essential hypertension - prn hydralazine for sbp > 160 8. Transaminitis - 2/2 sepsis w/(-)hepatitis panel 9. Anemia - normocytic - check folate/b12, iron panel, occult blood stool 10. Tobaccoism -> Smoking abuse 11. Enterococcal bacteruria vs early UTI = sensitive to Vanco IV 12. (+)QTF Gold Serology: Per Dr. Ornelas's consult note 02/28/16; no evidence active MTB, no INH at this time * Can consider INH + B6 future when acute illness phase treated and liver fx WNL (+)MRSA Nares -> Bactroban onboard INVASIVES: PIV, FC, CT ABX ALLERGY: KNDA CURRENT ABX: TOTAL ABX DAY #1=> Start Tygacil, Flagyl IV, Vanco Liq PO # 5 => Vanco IV, Cefepime -> DC TODAY ID RECOMMENDATIONS: * DC Vanco IV/Cefepime - increases risk of ABX associated colitis * Start Tygacil which has EXCELLENT penetration into the bowel within 48 hours + covers HCAP * NOTE: Tygacil is not effective for UTI if recurrent UTI manifests future will need alternative ABX agent. * Start Flagyl IV empiric coverage C.Diff colitis * Start Vanco PO empiric coverage C. Diff colitis * Consider surgical consult for PAD=> Moderate to marked narrowing of the proximal superior mesenteric artery. . Problems: Consultation Date/Type/Reason Admit Date/Time Feb 24, 2016 at 04:06 Initial Consult Date Exam/Review of Systems Vital Signs Vitals Vital Signs Date Time Temp Pulse Resp B/P Pulse Ox O2 Delivery O2 Flow Rate FiO2 02/28/16 12:00 98.2 95 14 119/53 100 Nasal Cannula 02/28/16 08:00 2.0 02/26/16 08:10 99 Intake and Output 02/27/16 02/27/16 02/28/16 15:00 23:00 07:00 Intake Total 410 ml 550 ml Output Total 310 ml 280 ml 260 ml Balance 100 ml 270 ml -260 ml Results Result Diagram: 02/28/16 0542 02/28/16 1100 Results 24 hrs Laboratory Tests Test 02/28/16 05:42 02/28/16 05:48 02/28/16 11:00 Band Neutrophils % 23.0 H Basophils # Basophils % Blood Morphology Comment Differential Comment MANUAL DIFF Eosinophils # Eosinophils % Hematocrit 31.6 #L Hemoglobin 10.7 #L Lymphocytes # 0.8 Lymphocytes % 3.0 L Mean Corpuscular Hemoglobin 32.5 Mean Corpuscular Hemoglobin Concent 33.8 Mean Corpuscular Volume 96.1 Mean Platelet Volume 9.0 Metamyelocytes # 0.5 Metamyelocytes % 2.0 H Monocytes # 1.6 H Monocytes % 6.0 Myelocytes # 0.3 Myelocytes % 1.0 H Neutrophils # 17.7 H Neutrophils % 65.0 Nucleated Red Blood Cells # Nucleated Red Blood Cells % Platelet Count 247 Red Blood Count 3.29 #L Red Cell Distribution Width 17.9 H White Blood Count 27.2 #H Alanine Aminotransferase (ALT/SGPT) 36 33 Albumin 2.3 L 2.4 L Albumin/Globulin Ratio 0.76 0.80 Alkaline Phosphatase 126 H 124 H Anion Gap 14 17 H Aspartate Amino Transf (AST/SGOT) 17 20 Blood Urea Nitrogen 27 H 31 H Calcium Level 8.1 L 7.6 L Carbon Dioxide Level 18 L 15 L Chloride Level 103 101 Creatinine 1.18 H 1.40 H Direct Bilirubin 0.00 0.00 Globulin 3.00 3.00 Glucose Level 111 112 Indirect Bilirubin 0.4 0.4 Potassium Level 4.2 4.4 Sodium Level 131 L 129 L Total Bilirubin 0.4 0.4 Total Protein 5.3 L 5.4 L Amylase Level < 30 Lipase < 10 L Medications Medications Current Medications Lorazepam (Ativan) 0.5 mg Q6H PRN IV ANXIETY Last administered on 02/26/16 02: 02; Admin Dose 0.5 MG; Start 02/24/16 at 02:00 Ondansetron HCl (Zofran Inj) 4 mg Q6H PRN IV NAUSEA AND/OR VOMITING Last administered on 02/28/16 09:56; Admin Dose 4 MG; Start 02/24/16 at 02:00 Nitroglycerin (Nitroglycerin (Sl Tab) 0.4 Mg) 1 tab Q5M PRN SL CHEST PAIN; Start 02/24/16 at 02:00 Acetaminophen (Tylenol Tab) 650 mg Q6H PRN PO PAIN LEVEL 1-3 OR FEVER Last administered on 02/27/16 07:46; Admin Dose 650 MG; Start 02/24/16 at 02:00 Acetaminophen/ Hydrocodone Bitart ([place] (5/325)) 1 tab Q6H PRN PO PAIN LEVEL 4 -6 Last administered on 02/28/16 08:17; Admin Dose 1 TAB; Start 02/24/16 at 02: 00 Hydralazine HCl (Apresoline) 10 mg Q6H PRN IV SBP > 160 Last administered on 06:44; Admin Dose 10 MG; Start 02/24/16 at 02:00 Labetalol HCl (Labetalol) 10 mg Q6 PRN IV ELEVATED BLOOD PRESSURE; Start at 23:00 Guaifenesin/ Dextromethorphan (Robitussin Dm Liquid Cup) 5 ml Q6 PRN PO COUGH Last administered on 02/27/16 18:12; Admin Dose 5 ML; Start 02/24/16 at 23:00 Nicotine (Nicoderm 21 Mg/ 24hr) 1 patch DAILY TRANSDERM Last administered on 08:06; Admin Dose 1 PATCH; Start 02/26/16 at 09:00 Morphine Sulfate (morphine) 6 mg Q4H PRN IV SEVERE PAIN LEVEL 7-10 Last administered on 02/28/16 07:35; Admin Dose 6 MG; Start 02/26/16 at 11:30 Docusate Sodium 100 mg 100 mg BID PO Last administered on 02/28/16 08:06; Admin Dose 100 MG; Start 02/26/16 at 21:00 Vancomycin HCl (Vancocin) 100 ml @ 100 mls/hr Q12H IVPB Last administered on 08:06; Admin Dose 100 MLS/HR; Start 02/27/16 at 20:00 Levothyroxine Sodium (Synthroid) 25 mcg DAILY@06 PO Last administered on 06:07; Admin Dose 25 MCG; Start 02/28/16 at 06:00 Pantoprazole (Protonix Iv) 40 mg BID@06,18 IV ; Start 02/28/16 at 18:00 Sucralfate (Carafate) 1 gm TID PO ; Start 02/28/16 at 13:00 Miscellaneous Information 1 ONCE ONCE XX ; Start 02/28/16 at 19:00; Stop at 19:01 Cefepime HCl (Maxipime 1gm/50 ml (Pmx)) 50 ml @ 100 mls/hr DAILY IVPB ; Start 02/29/16 at 09:00 COREY LUIS NP Feb 28, 2016 13:08 COREY LUIS NP Feb 28, 2016 13:08 COREY LUIS NP Feb 28, 2016 13:08
[2016-02-28] MEDS: metroNIDAZOLE 500 MG/NS (PMX) 100 ML IVPB SCH ×3 (13:37→23:38)
[2016-02-28] MEDS: SUCRALFATE 1 GM TAB PO SCH ×2 (13:37→21:07)
[2016-02-28] MEDS ORDERED: TIGECYCLINE 100 MG in SOD CHLORIDE 0.9% 100 ML IVPB ONE (14:30)
[2016-02-28] MEDS: VANCOMYCIN HCL 250 MG/5ML POSYG PO SCH ×3 (15:21→23:38)
[2016-02-28] MEDS ORDERED: DEXTROSE 5%-0.45% NACL 1,000 ML IV SCH (16:00)
[2016-02-28] MEDS: PANTOPRAZOLE 40 MG INJ IV SCH (18:00)
[2016-02-28] MEDS: METOCLOPRAMIDE 10 MG INJ IV PRN (18:12)
--- NOTE | 2016-02-28 18:16 | PN ---
Date/Time of Note Date/Time of Note DATE: 02/28/16 TIME: 18:15 Assessment/Plan Lines/Catheters IV Catheter Type (from Nrsg): Peripheral IV Francois in Place (from Nrsg): Yes Assessment/Plan Chief Complaint/Hosp Course SP VATS Decortication CT [address] Sxn Problems: Subjective 24 Hr Interval Summary Constitutional: improved Pain Control: mild Exam/Review of Systems Vital Signs Vitals Vital Signs Date Time Temp Pulse Resp B/P Pulse Ox O2 Delivery O2 Flow Rate FiO2 02/28/16 16:00 90 02/28/16 16:00 97.9 10 136/58 100 Nasal Cannula 02/28/16 08:00 2.0 02/26/16 08:10 99 Intake and Output 02/27/16 02/27/16 02/28/16 15:00 23:00 07:00 Intake Total 410 ml 550 ml Output Total 310 ml 280 ml 260 ml Balance 100 ml 270 ml -260 ml Exam ENMT: mucosa pink and moist, nl external ears & nose, nl lips & teeth, nl nasal mucosa & septum Neck: non-tender, supple Respiratory: clear to auscultation, normal air movement Cardiovascular: nl pulses, regular rate and rhythm Results Result Diagram: 02/28/16 0542 02/28/16 [address] PETIT MD Feb 28, 2016 18:16
--- NOTE | 2016-02-28 19:55 | PN ---
Date/Time of Note Date/Time of Note DATE: 02/28/16 TIME: 19:54 Assessment/Plan VTE Prophylaxis VTE Prophylaxis Intervention: SCD's, other Lines/Catheters IV Catheter Type (from Nrsg): Peripheral IV Urinary Cath still in place: Yes Reason Cath still needed: other (indicate) Assessment/Plan Chief Complaint/Hosp Course 1. Left video-assisted thoracic surgery, total pulmonary decortication. 2. Control of chest bleeding.s/p 3. Bronchoscopy s/p 4 s/p fall 5 lung infilterate 6 hyponatremia 7 djd 8 ddd 9 hx htn 10 positive gold test 11 UTI 12HYPOTHYROIDISM [address] howe and neuro surgery labs id dr marguerite velazquez and dr black to see called pain meds Problems: Subjective 24 Hr Interval Summary Respiratory: no complaints Cardiovascular: no complaints Exam/Review of Systems Vital Signs Vitals Vital Signs Date Time Temp Pulse Resp B/P Pulse Ox O2 Delivery O2 Flow Rate FiO2 02/28/16 19:00 93 12 139/57 100 Nasal Cannula 02/28/16 18:20 2.0 02/28/16 16:00 97.9 02/26/16 08:10 99 Intake and Output 02/27/16 02/27/16 02/28/16 14:59 22:59 06:59 Intake Total 410 ml 550 ml Output Total 330 ml 280 ml 260 ml Balance 80 ml 270 ml -260 ml Exam Neck: supple Respiratory: clear to auscultation Cardiovascular: regular rate and rhythm Gastrointestinal: soft Musculoskeletal: nl extremities to inspection Extremities: normal pulses Results Result Diagram: 02/28/16 0542 02/28/16 1100 Results 24 hrs Laboratory Tests Test 02/28/16 05:42 02/28/16 05:48 02/28/16 11:00 Band Neutrophils % 23.0 H Basophils # Basophils % Blood Morphology Comment Differential Comment MANUAL DIFF Eosinophils # Eosinophils % Hematocrit 31.6 #L Hemoglobin 10.7 #L Lymphocytes # 0.8 Lymphocytes % 3.0 L Mean Corpuscular Hemoglobin 32.5 Mean Corpuscular Hemoglobin Concent 33.8 Mean Corpuscular Volume 96.1 Mean Platelet Volume 9.0 Metamyelocytes # 0.5 Metamyelocytes % 2.0 H Monocytes # 1.6 H Monocytes % 6.0 Myelocytes # 0.3 Myelocytes % 1.0 H Neutrophils # 17.7 H Neutrophils % 65.0 Nucleated Red Blood Cells # Nucleated Red Blood Cells % Platelet Count 247 Red Blood Count 3.29 #L Red Cell Distribution Width 17.9 H White Blood Count 27.2 #H Alanine Aminotransferase (ALT/SGPT) 36 33 Albumin 2.3 L 2.4 L Albumin/Globulin Ratio 0.76 0.80 Alkaline Phosphatase 126 H 124 H Anion Gap 14 17 H Aspartate Amino Transf (AST/SGOT) 17 20 Blood Urea Nitrogen 27 H 31 H Calcium Level 8.1 L 7.6 L Carbon Dioxide Level 18 L 15 L Chloride Level 103 101 Creatinine 1.18 H 1.40 H Direct Bilirubin 0.00 0.00 Globulin 3.00 3.00 Glucose Level 111 112 Indirect Bilirubin 0.4 0.4 Potassium Level 4.2 4.4 Sodium Level 131 L 129 L Total Bilirubin 0.4 0.4 Total Protein 5.3 L 5.4 L Amylase Level < 30 Lipase < 10 L Medications Medications Current Medications Lorazepam (Ativan) 0.5 mg Q6H PRN IV ANXIETY Last administered on 02/26/16 02: 02; Admin Dose 0.5 MG; Start 02/24/16 at 02:00 Ondansetron HCl (Zofran Inj) 4 mg Q6H PRN IV NAUSEA AND/OR VOMITING Last administered on 02/28/16 15:32; Admin Dose 4 MG; Start 02/24/16 at 02:00 Nitroglycerin (Nitroglycerin (Sl Tab) 0.4 Mg) 1 tab Q5M PRN SL CHEST PAIN; Start 02/24/16 at 02:00 Acetaminophen (Tylenol Tab) 650 mg Q6H PRN PO PAIN LEVEL 1-3 OR FEVER Last administered on 02/27/16 07:46; Admin Dose 650 MG; Start 02/24/16 at 02:00 Acetaminophen/ Hydrocodone Bitart ([place] (5/325)) 1 tab Q6H PRN PO PAIN LEVEL 4 -6 Last administered on 02/28/16 08:17; Admin Dose 1 TAB; Start 02/24/16 at 02: 00 Hydralazine HCl (Apresoline) 10 mg Q6H PRN IV SBP > 160 Last administered on 06:44; Admin Dose 10 MG; Start 02/24/16 at 02:00 Labetalol HCl (Labetalol) 10 mg Q6 PRN IV ELEVATED BLOOD PRESSURE; Start at 23:00 Guaifenesin/ Dextromethorphan (Robitussin Dm Liquid Cup) 5 ml Q6 PRN PO COUGH Last administered on 02/27/16 18:12; Admin Dose 5 ML; Start 02/24/16 at 23:00 Nicotine (Nicoderm 21 Mg/ 24hr) 1 patch DAILY TRANSDERM Last administered on 08:06; Admin Dose 1 PATCH; Start 02/26/16 at 09:00 Morphine Sulfate (morphine) 6 mg Q4H PRN IV SEVERE PAIN LEVEL 7-10 Last administered on 02/28/16 19:43; Admin Dose 6 MG; Start 02/26/16 at 11:30 Docusate Sodium (Colace) 100 mg BID PO Last administered on 02/28/16 08:06; Admin Dose 100 MG; Start 02/26/16 at 21:00 Levothyroxine Sodium (Synthroid) 25 mcg DAILY@06 PO Last administered on 06:07; Admin Dose 25 MCG; Start 02/28/16 at 06:00 Pantoprazole (Protonix Iv) 40 mg BID@06,18 IV Last administered on 02/28/16 18 :00; Admin Dose 40 MG; Start 02/28/16 at 18:00 Sucralfate 1 gm 1 gm TID PO Last administered on 02/28/16 13:37; Admin Dose 1 GM; Start 02/28/16 at 13:00 Metronidazole (Flagyl 500 Mg (Pmx)) 100 ml @ 100 mls/hr Q6 IVPB Last administered on 02/28/16 18:00; Admin Dose 100 MLS/HR; Start 02/28/16 at 13:30 Vancomycin HCl 250 mg 250 mg Q6 PO Last administered on 02/28/16 18:59; Admin Dose 250 MG; Start 02/28/16 at 13:30 Tigecycline 50 mg/ Sodium Chloride 100 ml @ 200 mls/hr Q12 IVPB ; Start at 21:00 Dextrose/Sodium Chloride (D5-1/2ns) 1,000 ml @ 60 mls/hr [id number] IV Last administered on 02/28/16 16:14; Admin Dose 60 MLS/HR; Start 02/28/16 at 16:00 Metoclopramide HCl (Reglan) 10 mg TID PRN IV N/V Last administered on 18:12; Admin Dose 10 MG; Start 02/28/16 at 16:00 REMINGTON ZELAYA MD Feb 28, 2016 19:55
[2016-02-28] MEDS: TIGECYCLINE 50 MG in SOD CHLORIDE 0.9% 100 ML IVPB SCH (21:07)
[2016-02-29] VITALS (24 sets, daily range): BP systolic 123–163; BP diastolic 46–78; PULSE 91–109; RESP 11–33
[2016-02-29] MEDS: morphine 10 MG INJ IV PRN ×3 (03:59→21:51)
[2016-02-29] MEDS: PANTOPRAZOLE 40 MG INJ IV SCH (05:42)
[2016-02-29] MEDS: VANCOMYCIN HCL 250 MG/5ML POSYG PO SCH ×3 (05:42→20:37)
[2016-02-29] MEDS: LEVOTHYROXINE 25 MCG TAB PO SCH (05:42)
[2016-02-29] MEDS: metroNIDAZOLE 500 MG/NS (PMX) 100 ML IVPB SCH ×3 (05:42→18:54)
[2016-02-29 06:46] LABS: ALBUMIN 2.2 g/dl (3.3-4.9); POTASSIUM 4.7 mmol/L (3.5-5.1)
[2016-02-29 06:49] LABS: ALBUMIN/GLOBULIN RATIO 0.78; BILIRUBIN,INDIRECT 0.2 mg/dl (0-1.1); BILIRUBIN,TOTAL 0.2 mg/dl (0.2-1.3)
[2016-02-29 07:05] LABS: CREATININE 2.37 mg/dl (0.44-1.00)
[2016-02-29 07:06] LABS: HEMATOCRIT 34.2 % (37.0-47.0); HEMOGLOBIN 11.4 g/dl (12.0-16.0); MEAN CORPUSCULAR HGB CONC 33.3 g/dl (32.0-37.0); MEAN CORPUSCULAR VOLUME 95.8 fl (82.0-101.0); MEAN PLATELET VOLUME 9.4 fl (7.4-10.4); PLATELET COUNT 242 10^3/UL (140-440); RED BLOOD COUNT 3.57 10^6/ul (4.20-5.40); RED CELL DISTRIBUTION WIDTH 18.7 % (11.5-14.5); UNCORRECTED WBC 35.3 10^3/ul (4.8-10.8); WHITE BLOOD COUNT 35.3 10^3/ul (4.8-10.8)
[2016-02-29 07:18] LABS: CONDITION 1; LH ANALYZER COMMENTS 1
[2016-02-29] MEDS: DOCUSATE SODIUM 100 MG CAP PO SCH ×2 (08:25→21:00)
--- NOTE | 2016-02-29 08:55 | CONS ---
DATE OF ADMISSION: 02/24/2016 DATE OF CONSULTATION: 02/28/2016 TYPE OF CONSULTATION: Surgical. REFERRING PHYSICIAN: Klever Arroyo MD CHIEF COMPLAINT 1. Leukocytosis. 2. Pancolitis. 3. Left hemothorax. 4. Transaminitis. 5. Anemia. 6. Urinary tract infection. 7. Cervical spine injury after a fall. 8. Rib fractures after a fall, subsequent hemopneumothorax. 9. Sepsis (urinary tract infection, plus colitis, plus bacteremia) 10. Tuberculosis. HISTORY OF PRESENT ILLNESS: Allison Aguilar is a 80-year-old old female with multiple significant comorbidities who was visiting [place] and fell off a roof, had subsequent C-spine injury with hemop neumothorax and rib fractures, that was treated initially with chest tube in [place], which was event ually removed. However, she has traveled back to the and presented with shortness of breath, and on imaging was found to have subcutaneous emphysema and moderate left hemothorax. She also had ane francie. She was seen in surgery by Dr. Patel for VATS decortication on 02/25/2016. Patient has be en spiking fevers, with abdominal pain, and is found to have UTI, bacteremia, and pancolitis on rece nt CT. She has significant leukocytosis and bandemia, however, normal lactic acid. Patient is in [facility]. Surgical consult obtained for further evaluation and treatment. PAST MEDICAL HISTORY: 1. Status post fall. 2. C-spine injury. 3. Rib fractures with subsequent hemo and pneumothorax. 4. Heavy smoking history. 5. Urinary tract infection. 6. Bacteremia. 7. Pancolitis. 8. Sepsis. 9. Bandemia and leukocytosis. 10. TB. 11. Hypoxic respiratory failure. 12. Peripheral arterial disease. 13. 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 14. Essential hypertension. 15. Transaminitis. 16. Anemia. 17. Lung infiltrates. 18. Hyponatremia. 19. Hypothyroidism. 20. Renal insufficiency. 21. Hypoalbuminemia. 22. Hypercalcemia. 23. Elevated alkaline phosphatase. PAST SURGICAL HISTORY: 1. Chest tube. 2. VATS. 3. Appendectomy. MEDICATIONS: As per MAR. ALLERGIES: As per chart. SOCIAL HISTORY: Occasional alcohol use. A pack per day x50 years. Denies recreational drugs. FAMILY HISTORY: Noncontributory. REVIEW OF SYSTEMS: A 12-point review of systems negative unless addressed in the HPI. No blood per mouth or rectum. No cough. No seizure. No rash. No significant weight changes. Bloating. Soft stools. Renal insufficiency. PHYSICAL EXAMINATION: VITAL SIGNS: Temperature is 98.2, pulse 90s to 100s, blood pressure 100s to 140s over 50s to 80s. GENERAL: Uncomfortable, but no acute distress. HEENT: Pupils equal, reactive. No scleral icterus. Mucous membranes are somewhat dry. NECK: No crepitus. No JVD. PULMONARY: Minimally coarse. Left sided chest tube. ABDOMEN: Patient somewhat tender in the right lower quadrant, not rigid. Not guarding. No rebound . EXTREMITIES: With edema. NEUROVASCULAR: Capillary refill is 2 seconds. NEUROLOGIC: Arousable and responsive. LABORATORY AND RADIOGRAPHIC: As per chart and HPI. ASSESSMENT AND PLAN: Allison Aguilar is a 80-year-old female with significant comorbidities. 1. Abdominal pain, with CT diagnosis of pancolitis, with significant leukocytosis and bandemia. Co ntinue aggressive antibiotic therapy, and consider rectal vancomycin. Antibiotics will need to be c hanged if numbers do not continue to improve. Continue judicious fluid management. Continue suppor tive care. The patient and family were informed that if despite aggressive medical therapy the alexis ent worsens, she may require subtotal colectomy. 2. Sepsis, multifactorial (pancolitis, urinary tract infection, pulmonary infiltrates, bacteremia). Aggressive antibiotic therapy. Judicious fluid management. Close monitoring. May require furthe r surgical intervention as above. 3. Renal insufficiency secondary to sepsis. Continue judicious fluid management. Avoid nephrotoxi c agents as possible. 4. Anemia, with recent hemothorax requiring VATS decortication. Continue chest tube and monitor ou tput. CT surgery following. Transfuse as needed. 5. Hypoalbuminemia. The patient will benefit from eventual nutritional optimization. 6. Hyponatremia, correct with fluid management. 7. Hypertension. Continue nutritional and medication optimization. 8. Hypothyroidism. Continue hormone. 9. Hemopneumothorax, status post VATS, and currently has chest tube, followed by CT surgery. 10. Cervical spine injury, being maintained in brace by neurosurgery. Thank you very much for consulting me in this patient's care. Dictated By: CHRISTIANO GRIFFITHS/JOSUÉ Conf#: [id number] DID#: [id number]
[2016-02-29] MEDS ORDERED: CEFEPIME 1GM/50 ML (PMX) 50 ML IVPB SCH (09:00)
[2016-02-29] MEDS: TIGECYCLINE 50 MG in SOD CHLORIDE 0.9% 100 ML IVPB SCH (09:47)
[2016-02-29] MEDS: SUCRALFATE 1 GM TAB PO SCH ×3 (09:47→20:37)
[2016-02-29] MEDS: DEXTROSE 5%-0.9% NACL 1,000 ML IV SCH (09:48)
[2016-02-29] MEDS: NICOTINE (21 MG/24 HR) PATCH TRANSDERM SCH (09:48)
[2016-02-29 10:11] LABS: LYMPHOCYTES # 0.7 10^3/ul (0.8-2.9); MONOCYTE # 2.1 10^3/ul (0.3-0.9); NEUTROPHIL # 26.1 10^3/ul (1.6-7.5)
--- NOTE | 2016-02-29 11:46 | PN ---
DATE: 02/29/2016 SUBJECTIVE: No acute changes overnight. No fevers. The patient is alert, denies pain, discomfort, looks comfortable. VITAL SIGNS: Temperature 98, pulse 97, respirations 14, blood pressure 128/55, saturation 100 on na amy cannula. WBC 35.3, H and H 11.4 and 34.2, platelets 242, neutrophils 74, bands 18, lymphs 2, monos 6. BUN 54 , creatinine 2.37. INDWELLINGS: The patient has Francois catheter, chest tube, peripheral IV. ANTIMICROBIALS: The patient is on Tygacil, Flagyl IV, oral vancomycin. PHYSICAL EXAMINATION: GENERAL: This is a well-nourished, well-developed, elderly woman who is alert, in no distr ess. HEENT: Head atraumatic, normocephalic. Sclerae anicteric. Buccal mucosa dry. NECK: Supple, trachea midline. CHEST: Rise symmetrical. Breath sounds diminished to bases. HEART: S1, S2. ABDOMEN: Soft, bowel sounds present. EXTREMITIES: Without cyanosis. ASSESSMENT: 1. Systemic inflammatory response syndrome with persistent leukocytosis and bandemia, likely second elin to #2. 2. Pancolitis as per CT of the abdomen and pelvis. The patient is on oral vancomycin, intravenous F lagyl as well as Tygacil. Surgery on case. 3. Cervical spine injury with hemopneumothorax and rib fractures status post fall. The patient unde rwent video assisted thoracoscopic surgery/decortication on 02/25/2016 with chest tube placement. 4. Status post acute hypoxemic respiratory failure. 5. Coagulase-negative staph bacteremia on admission, possible skin contaminant. 6. Positive QuantiFERON TB Gold serology. No evidence of active MTB, no need for treatment. 7. Anemia. 8. Acute renal failure. PLAN: The patient is hemodynamically and clinically stable. She is being followed by multiple cons ultants, still with significant leukocytosis and bandemia, covered with appropriate antimicrobials. No diarrhea. We will continue her on current regimen. We may start her on a vancomycin enema as p er surgical recommendation if no improvement. Dictated By: PHOEBE BANDA INDIRECT FIRE INFANTRYMAN for JUAN HUGHES MD NI/NTS Conf#: [id number] DID#: [id number]
--- NOTE | 2016-02-29 11:47 | CONS ---
DATE OF ADMISSION: 02/24/2016 DATE OF CONSULTATION: 02/29/2016 TYPE OF CONSULTATION: Gastroenterology. From Dr. Charissa Hoang to Dr. Klever Arroyo. HISTORY OF PRESENT ILLNESS: The patient is a 74-year-old male with a history of hypertension who ca me to the ER complaining of chest pain, cough and cold. The patient was in [place] where she sustain ed a fall from the roof resulting in rib fracture with a pneumothorax. She had a chest tube and sub sequently removed in the hospital in [place]. Now she complains of chest pain and shortness of breat h, dizziness and headache. She denies GI bleeding. The patient and I had the diarrhea. She was al so on multiple antibiotics when she was in [place]. This information was gathered from the daughter. During her stay in the hospital, the patient had a workup which showed a fracture of the ribs and also vertebra. A GI consult was called in for colitis and abdominal pain. REVIEW OF SYSTEMS: Negative. Now she has no abdominal pain and no diarrhea as per the daughter. PAST MEDICAL HISTORY: Hypertension. PAST SURGICAL HISTORY: Appendicectomy and chest tube. SOCIAL HISTORY: She smokes every day, 1 pack per day for the last 50 years. She drinks alcohol on a regular basis. PHYSICAL EXAMINATION VITAL SIGNS: Stable. GENERAL: Alert, awake, not in distress. HEENT: Unremarkable. CARDIOVASCULAR: No murmur, gallop or click. LUNGS: Clear. ABDOMEN: Soft, large, nontender, bowel sounds good. No mass upper abdomen. EXTREMITIES: No edema. CENTRAL NERVOUS SYSTEM: Grossly within normal limits. LABORATORY DATA: Her WBC count when she came in was 22,000 and it has jumped to 35,000. Despite al l the antibiotics. Hematocrit is stable, which is 34.2. Creatinine is deteriorating. When she cam e in was normal, now it is 2.37 and gradually it is getting worse. Alkaline phosphatase is mildly e levated. The CT scan of the abdomen and pelvis showed pancolitis with narrowing of the takeoff of s uperior mesenteric artery. IMPRESSION: 1. Pancolitis, rule out pseudomembranous colitis or ischemic colitis, especially in view of SMA jocelyne rowing. 2. Fracture of the ribs. 3. Pneumothorax status post chest tube placement. 4. History of nicotine addiction. 5. Cervical spine injury. 6. History of fall. 7. Peripheral arterial disease. 8. Mild elevation of alkaline phosphatase, most probably related to alcoholic liver disease. 9. Anemia. 10. Chronic kidney disease, worsening. PLAN: 1. At this point, she is on tigecycline and vancomycin and Flagyl. We will continue. 2. We will start her on a clear liquid diet. 3. Monitor WBC count closely. 4. Surgical consult. 5. Stool for Clostridium difficile toxin. 6. On antibiotic as per Infectious Disease. Dictated By: CHARISSA TADEO/NTS Conf#: [id number] DID#: [id number]
[2016-02-29] MEDS: CALCIUM CARBONATE 500 MG CHEW TAB PO SCH ×2 (12:33→20:37)
--- NOTE | 2016-02-29 14:53 | PN ---
Date/Time of Note Date/Time of Note DATE: 02/29/16 TIME: 14:48 Assessment/Plan Lines/Catheters IV Catheter Type (from [facility]): Peripheral IV Francois in Place (from [facility]): Yes Assessment/Plan Chief Complaint/Hosp Course 1. Abdominal pain, with CT diagnosis of pancolitis, with significant leukocytosis and bandemia. -Aggressive antibiotic therapy (add rectal vancomycin & oral Deficid) -Judicious fluid management -Patient and family informed that if despite aggressive medical therapy the patient worsens, she may require subtotal colectomy. 2. Sepsis, multifactorial (pancolitis, urinary tract infection, pulmonary infiltrates, bacteremia). -Aggressive antibiotic therapy. -Judicious fluid management. -Close monitoring. -May require further surgical intervention as above. 3. Renal insufficiency secondary to sepsis. Worsening. -Continue judicious fluid management. -Avoid nephrotoxic agents as possible. 4. Anemia, with recent hemothorax requiring VATS decortication. -Continue chest tube and monitor output. -CT surgery following. -Transfuse as needed. 5. Hypoalbuminemia. -Eventual nutritional optimization. 6. Hyponatremia -Correct with fluid management. 7. Hypertension. -Nutritional and medication optimization. 8. Hypothyroidism. -Replace hormone. 9. Hemopneumothorax, status post VATS, and currently has chest tube, followed by CT surgery. 10. Cervical spine injury, being maintained in brace by neurosurgery. Thank you, Problems: Subjective 24 Hr Interval Summary Worsening leukocytosis. No f/c. No n/v. Bowel function. Bloated. Tenderness same in lower abdomen (not worsening). No cough. No sz. No rash, ho, visual or neuro changes. Exam/Review of Systems Vital Signs Vitals Vital Signs Date Time Temp Pulse Resp B/P Pulse Ox O2 Delivery O2 Flow Rate FiO2 02/29/16 12:00 98 02/29/16 12:00 98.8 20 137/63 100 Nasal Cannula 02/29/16 08:00 2.0 02/26/16 08:10 99 Intake and Output 02/28/16 02/28/16 02/29/16 15:00 23:00 07:00 Intake Total 700 ml 645 ml 620 ml Output Total 300 ml 215 ml 75 ml Balance 400 ml 430 ml 545 ml Exam Free Text/Dictation GENERAL: Uncomfortable, but no acute distress. HEENT: Pupils equal, reactive. No scleral icterus. Mucous membranes are somewhat dry. NECK: No crepitus. No JVD. PULMONARY: Minimally coarse. Left sided chest tube. ABDOMEN: Patient somewhat tender in the right lower quadrant, not rigid. Not guarding. No rebound. EXTREMITIES: Trace edema. VASCULAR: Capillary refill is 2 seconds. NEUROLOGIC: Arousable and responsive. SKIN: No rashes/jaundice. PSYCH: Uncomfortable Results Result Diagram: 02/29/16 0557 02/29/16 0557 CHRISTIANO JENNINGS MD Feb 29, 2016 14:53
--- NOTE | 2016-02-29 15:35 | PN ---
Date/Time of Note Date/Time of Note DATE: 02/29/16 TIME: 15:33 Assessment/Plan VTE Prophylaxis VTE Prophylaxis Intervention: other Lines/Catheters IV Catheter Type (from Nrsg): Peripheral IV Urinary Cath still in place: Yes Reason Cath still needed: other (indicate) Assessment/Plan Chief Complaint/Hosp Course 1. Left video-assisted thoracic surgery, total pulmonary decortication. 2. Control of chest bleeding.s/p 3. Bronchoscopy s/p 4 s/p fall 5 lung infilterate 6 hyponatremia 7 djd 8 ddd 9 hx htn 10 positive gold test 11 UTI 12HYPOTHYROIDISM 13 collites 14 markos [address] howe and neuro surgery labs id dr marguerite velazquez and dr black to see pain meds labs Problems: Subjective 24 Hr Interval Summary Respiratory: no complaints Gastrointestinal: pain (better), No diarrhea Exam/Review of Systems Vital Signs Vitals Vital Signs Date Time Temp Pulse Resp B/P Pulse Ox O2 Delivery O2 Flow Rate FiO2 02/29/16 15:00 98 18 156/61 100 Nasal Cannula 02/29/16 12:00 98.8 02/29/16 08:00 2.0 02/26/16 08:10 99 Intake and Output 02/28/16 02/28/16 02/29/16 15:00 23:00 07:00 Intake Total 700 ml 645 ml 680 ml Output Total 300 ml 215 ml 75 ml Balance 400 ml 430 ml 605 ml Exam Neck: supple Respiratory: clear to auscultation Cardiovascular: regular rate and rhythm Gastrointestinal: soft Musculoskeletal: nl extremities to inspection Extremities: normal pulses Results Result Diagram: 02/29/16 0557 02/29/16 0557 Results 24 hrs Laboratory Tests Test 02/28/16 19:30 02/29/16 05:57 Lactic Acid Level 1.5 Alanine Aminotransferase (ALT/SGPT) 35 Albumin 2.2 L Albumin/Globulin Ratio 0.78 Alkaline Phosphatase 123 H Anion Gap 18 H Aspartate Amino Transf (AST/SGOT) 15 Band Neutrophils % 18.0 H Blood Morphology Comment Blood Urea Nitrogen 54 H Calcium Level 8.0 L Carbon Dioxide Level 13 L Chloride Level 102 Creatinine 2.37 H Differential Comment MANUAL DIFF Direct Bilirubin 0.00 Globulin 2.80 Glucose Level 140 Hematocrit 34.2 L Hemoglobin 11.4 L Indirect Bilirubin 0.2 Lymphocytes # 0.7 L Lymphocytes % 2.0 L Mean Corpuscular Hemoglobin 32.0 Mean Corpuscular Hemoglobin Concent 33.3 Mean Corpuscular Volume 95.8 Mean Platelet Volume 9.4 Monocytes # 2.1 H Monocytes % 6.0 Neutrophils # 26.1 H Neutrophils % 74.0 Platelet Count 242 Potassium Level 4.7 Red Blood Count 3.57 L Red Cell Distribution Width 18.7 H Sodium Level 128 L Total Bilirubin 0.2 Total Protein 5.0 L White Blood Count 35.3 #H Medications Medications Current Medications Lorazepam (Ativan) 0.5 mg Q6H PRN IV ANXIETY Last administered on 02/26/16 02: 02; Admin Dose 0.5 MG; Start 02/24/16 at 02:00 Ondansetron HCl (Zofran Inj) 4 mg Q6H PRN IV NAUSEA AND/OR VOMITING Last administered on 02/28/16 15:32; Admin Dose 4 MG; Start 02/24/16 at 02:00 Nitroglycerin (Nitroglycerin (Sl Tab) 0.4 Mg) 1 tab Q5M PRN SL CHEST PAIN; Start 02/24/16 at 02:00 Acetaminophen (Tylenol Tab) 650 mg Q6H PRN PO PAIN LEVEL 1-3 OR FEVER Last administered on 02/27/16 07:46; Admin Dose 650 MG; Start 02/24/16 at 02:00 Acetaminophen/ Hydrocodone Bitart (Lyman (5/325)) 1 tab Q6H PRN PO PAIN LEVEL 4 -6 Last administered on 02/28/16 08:17; Admin Dose 1 TAB; Start 02/24/16 at 02: 00 Hydralazine HCl (Apresoline) 10 mg Q6H PRN IV SBP > 160 Last administered on 06:44; Admin Dose 10 MG; Start 02/24/16 at 02:00 Labetalol HCl (Labetalol) 10 mg Q6 PRN IV ELEVATED BLOOD PRESSURE; Start at 23:00 Guaifenesin/ Dextromethorphan (Robitussin Dm Liquid Cup) 5 ml Q6 PRN PO COUGH Last administered on 02/27/16 18:12; Admin Dose 5 ML; Start 02/24/16 at 23:00 Nicotine (Nicoderm 21 Mg/ 24hr) 1 patch DAILY TRANSDERM Last administered on 09:48; Admin Dose 1 PATCH; Start 02/26/16 at 09:00 Morphine Sulfate (morphine) 6 mg Q4H PRN IV SEVERE PAIN LEVEL 7-10 Last administered on 02/29/16 14:52; Admin Dose 6 MG; Start 02/26/16 at 11:30 Docusate Sodium (Colace) 100 mg BID PO Last administered on 02/28/16 21:07; Admin Dose 100 MG; Start 02/26/16 at 21:00 Levothyroxine Sodium (Synthroid) 25 mcg DAILY@06 PO Last administered on 05:42; Admin Dose 25 MCG; Start 02/28/16 at 06:00 Sucralfate 1 gm 1 gm TID PO Last administered on 02/29/16 12:32; Admin Dose 1 GM; Start 02/28/16 at 13:00 Metronidazole (Flagyl 500 Mg (Pmx)) 100 ml @ 100 mls/hr Q6 IVPB Last administered on 02/29/16 12:32; Admin Dose 100 MLS/HR; Start 02/28/16 at 13:30 Vancomycin HCl (Vancomycin Oral Syringe) 250 mg Q6 PO Last administered on 02/28 12:32; Admin Dose 250 MG; Start 02/28/16 at 13:30 Metoclopramide HCl 10 mg 10 mg TID PRN IV N/V Last administered on 02/28/16 18 :12; Admin Dose 10 MG; Start 02/28/16 at 16:00 Dextrose/Sodium Chloride (D5-NS) 1,000 ml @ 75 mls/hr [id number] IV Last administered on 02/29/16 09:48; Admin Dose 75 MLS/HR; Start 02/29/16 at 09:30 Fidaxomicin (Dificid) 200 mg BID PO ; Start 02/29/16 at 21:00 REMINGTON ZELAYA MD Feb 29, 2016 15:35
[2016-02-29] MEDS: METOCLOPRAMIDE 10 MG INJ IV PRN (16:01)
--- NOTE | 2016-02-29 16:50 | QN ---
Documentation Comment MRI reviewed. 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 The degenerative disease likely predates the patient's recent trauma, but there is no way of knowing whether the cord signal change reflects an acute event from the fall or was pre-existing. Given high degree of stenosis and cord signal change I do think the patient will need/ benefit from posterior cervical laminectomy and fusion. This is not an emergency and can safely be deferred until the patient's current , more acute issues (doshi-colitis , etc) are resolved. The patient is neurologically intact and was cleared clinically in [place]; she has been ambulatory without a collar for ~2 weeks. Nevertheless, I would recommend a rigid cervical collar when she is weight bearing/ until surgery can safely be performed. She could conceivably be discharged and return for outpatient evaluation if she remains neurologically stable. MIRLANDE BARKER MD Feb 29, 2016 16:50
[2016-02-29] MEDS: hydrALAzine 20 MG INJ IV PRN (17:14)
[2016-02-29] MEDS: FIDAXOMICIN 200 MG TABLET PO SCH (20:37)
[2016-03-01] VITALS (36 sets, daily range): BP systolic 106–195; BP diastolic 43–68; PULSE 76–104; RESP 13–30
[2016-03-01] MEDS: DEXTROSE 5%-0.9% NACL 1,000 ML IV SCH ×2 (01:00→12:46)
[2016-03-01] MEDS: metroNIDAZOLE 500 MG/NS (PMX) 100 ML IVPB SCH ×5 (01:01→23:45)
[2016-03-01] MEDS: LEVOTHYROXINE 25 MCG TAB PO SCH (05:18)
[2016-03-01] MEDS: VANCOMYCIN HCL 250 MG/5ML POSYG PO SCH ×5 (05:18→23:45)
[2016-03-01] MEDS: hydrALAzine 20 MG INJ IV PRN ×3 (05:19→21:34)
[2016-03-01 06:41] LABS: HEMATOCRIT 35.1 % (37.0-47.0); HEMOGLOBIN 11.6 g/dl (12.0-16.0); MEAN CORPUSCULAR HEMOGLOBIN 31.8 pg (29.0-33.0); MEAN CORPUSCULAR HGB CONC 33.1 g/dl (32.0-37.0); MEAN CORPUSCULAR VOLUME 96.2 fl (82.0-101.0); PLATELET COUNT 218 10^3/UL (140-440); RED BLOOD COUNT 3.64 10^6/ul (4.20-5.40)
[2016-03-01 06:50] LABS: CONDITION 1; LH ANALYZER COMMENTS 1
[2016-03-01 06:59] LABS: POTASSIUM 4.4 mmol/L (3.5-5.1)
[2016-03-01 07:01] LABS: ALBUMIN/GLOBULIN RATIO 0.71; BILIRUBIN,INDIRECT 0.1 mg/dl (0-1.1); BILIRUBIN,TOTAL 0.1 mg/dl (0.2-1.3); TOTAL PROTEIN 4.8 g/dl (6.1-8.1)
[2016-03-01 07:02] LABS: CALCIUM 7.9 mg/dl (8.4-10.2)
[2016-03-01 07:09] LABS: CREATININE 2.82 mg/dl (0.44-1.00)
[2016-03-01] MEDS: FIDAXOMICIN 200 MG TABLET PO SCH ×2 (08:34→21:19)
[2016-03-01] MEDS: DOCUSATE SODIUM 100 MG CAP PO SCH (08:34)
[2016-03-01] MEDS: CALCIUM CARBONATE 500 MG CHEW TAB PO SCH ×3 (08:34→18:24)
[2016-03-01] MEDS: SUCRALFATE 1 GM TAB PO SCH ×2 (08:34→12:48)
[2016-03-01] MEDS: NICOTINE (21 MG/24 HR) PATCH TRANSDERM SCH (08:35)
[2016-03-01 10:20] LABS: LYMPHOCYTES # 1.8 10^3/ul (0.8-2.9); MYELOCYTES # 0.5; NEUTROPHIL # 30.2 10^3/ul (1.6-7.5)
[2016-03-01 10:22] LABS: ANISOCYTOSIS 1+; SPHEROCYTES 1+
[2016-03-01 10:23] LABS: BURR CELLS 1+
--- NOTE | 2016-03-01 12:22 | PN ---
Date/Time of Note Date/Time of Note DATE: 03/01/16 TIME: 12:18 Assessment/Plan Lines/Catheters IV Catheter Type (from [facility]): Peripheral IV Francois in Place (from [facility]): Yes Assessment/Plan Chief Complaint/Hosp Course 1. Abdominal pain, with CT diagnosis of pancolitis, with significant leukocytosis and bandemia. -Aggressive antibiotic therapy (add rectal vancomycin) -Judicious fluid management -Since patient is getting worse despite aggressive medical therapy, I am concerned for ischemic bowel and recommend diagnostic laparoscopy with possible subtotal colectomy. Has a long d/w family (daughter Haley, and others) and they all agree to proceed to surgery despite high perioperative risks. 2. Sepsis, multifactorial (pancolitis ? ischemic, urinary tract infection, pulmonary infiltrates, bacteremia). -Aggressive antibiotic therapy. -Judicious fluid management. -Close monitoring. -OR 3. Renal insufficiency secondary to sepsis. Worsening. -Continue judicious fluid management. -Avoid nephrotoxic agents as possible. 4. Anemia, with recent hemothorax requiring VATS decortication. -Continue chest tube and monitor output. -CT surgery following. -Transfuse as needed. 5. Hypoalbuminemia. -Eventual nutritional optimization. 6. Hyponatremia -Correct with fluid management. 7. Hypertension. -Nutritional and medication optimization. 8. Hypothyroidism. -Replace hormone. 9. Hemopneumothorax, status post VATS, and currently has chest tube, followed by CT surgery. 10. Cervical spine injury, being maintained in brace by neurosurgery. Thank you, Problems: Subjective 24 Hr Interval Summary Worsening leukocytosis but improving bandemia. Deficid started last night. No f/c. No n/v. Min liquid stool last night. Bloated. Tenderness. No cough. No sz. No rash, ho, visual or neuro changes. Exam/Review of Systems Vital Signs Vitals Vital Signs Date Time Temp Pulse Resp B/P Pulse Ox O2 Delivery O2 Flow Rate FiO2 03/01/16 15:00 91 25 173/65 100 Nasal Cannula 2.0 03/01/16 13:00 97.1 02/26/16 08:10 99 Intake and Output 02/29/16 02/29/16 03/01/16 15:00 23:00 07:00 Intake Total 1330 ml 750 ml 625 ml Output Total 60 ml 35 ml 60 ml Balance 1270 ml 715 ml 565 ml Exam Free Text/Dictation GENERAL: Uncomfortable, but no acute distress. HEENT: Pupils equal, reactive. No scleral icterus. Mucous membranes are somewhat dry. NECK: No crepitus. No JVD. PULMONARY: Minimally coarse. Left sided chest tube. ABDOMEN: Diffuse tenderness, not rigid. Mild voluntary guarding. No rebound. EXTREMITIES: Trace edema. VASCULAR: Capillary refill is 2 seconds. NEUROLOGIC: Arousable and responsive. SKIN: No rashes/jaundice. PSYCH: Uncomfortable Results Result Diagram: 03/01/16 0610 03/01/16 0616 CHRISTIANO JENNINGS MD Mar 01, 2016 12:22
[2016-03-01] MEDS: morphine 10 MG INJ IV PRN (13:10)
[2016-03-01] MEDS: ONDANSETRON 4 MG INJ IV PRN (13:17)
--- NOTE | 2016-03-01 15:02 | PN ---
DATE: 03/01/2016 INFECTIOUS DISEASE PROGRESS NOTE SUBJECTIVE: No acute changes. The patient is sleeping, arousable, looks comfortable, no fevers overnight, no vomiting or diarrhea. The patient tolerates clear liquids. WBC today increased to 45,000. H and H 11.6 and 35.1 , platelets 218, bands 15, lymphs 4, monos 11. BUN 74, creatinine 2.82. Lactic acid 1.5. MICROBIOLOGY: Blood cultures since admission grew coag negative staph species 1 out of 2 sets consistent with contaminant. Repeat blood cultures negative. Urine culture on admission grew enterococcus species, less than 10,000 colonies. Repeat urine culture negative. ANTIMICROBIALS: The patient was started on Dificid. She is also on IV Flagyl and oral vancomycin. INDWELLINGS: Chest tube, Francois catheter, peripheral IV. PHYSICAL EXAMINATION: GENERAL: This is a fragile, elderly woman who is sleeping, arousable, and in no distress. HEENT: Head atraumatic, normocephalic. Sclerae anicteric. Buccal mucosa dry. NECK: Supple, trachea midline. CHEST: Rise symmetrical. Breath sounds diminished to bases. HEART: S1, S2. ABDOMEN: Slightly distended. Bowel tones present. EXTREMITIES: Without cyanosis. ASSESSMENT: 1. Systemic inflammatory response syndrome with persistent leukocytosis and bandemia, rule out ischemic colitis versus others. 2. Pancolitis as per CT of the abdomen and pelvis. The patient was started on Dificid yesterday, surgery on case. 3. Status post cervical spine injury with pneumothorax and fractured ribs secondary to fall. The patient underwent VATS with decortication on 02/25/2016 and chest tube placement. 4. Coagulase-negative staph bacteremia on admission consistent with contaminant. 5. Anemia. 6. Acute renal failure. 7. 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 PLAN: The patient remains clinically and hemodynamically stable. Her lactic acid is 1.5. She has no fever. Cultures have been negative. She is covered with appropriate antimicrobials. Surgery on case. Neurosurgery on case as well with recommendation for cervical laminectomy and fusion once the patient is stable. The patient may need subtotal colectomy as per surgical notes if no improvement in white blood cell count and clinical status. Above was discussed with staff and family at bedside. Dictated By: NERA ISMATONY THOMAS/JOSUÉ Conf#: [id number] DID#: [id number] VIN
[2016-03-01] MEDS: HYDROCODONE/APAP (5/325) TAB PO PRN (15:05)
[2016-03-01] MEDS ORDERED: ROCURONIUM 50 MG INJ ONE ×2 (16:36→18:31)
[2016-03-01] MEDS ORDERED: PROPOFOL 20 ML ONE (16:36)
[2016-03-01] MEDS ORDERED: METOCLOPRAMIDE 10 MG INJ ONE (17:05)
[2016-03-01] MEDS ORDERED: FENTAnyl 50 MCG/ML VIAL ONE (17:20)
--- NOTE | 2016-03-01 17:54 | PN ---
Date/Time of Note Date/Time of Note DATE: 03/01/16 TIME: 17:53 Assessment/Plan Lines/Catheters IV Catheter Type (from Nrsg): Peripheral IV Francois in Place (from Nrsg): Yes Assessment/Plan Chief Complaint/Hosp Course SP VATS Decortication CT [address] Sxn Problems: Subjective 24 Hr Interval Summary Constitutional: improved Pain Control: mild Exam/Review of Systems Vital Signs Vitals Vital Signs Date Time Temp Pulse Resp B/P Pulse Ox O2 Delivery O2 Flow Rate FiO2 03/01/16 16:00 92 03/01/16 15:00 25 173/65 100 Nasal Cannula 2.0 03/01/16 13:00 97.1 02/26/16 08:10 99 Intake and Output 02/29/16 02/29/16 03/01/16 15:00 23:00 07:00 Intake Total 1330 ml 750 ml 725 ml Output Total 60 ml 35 ml 60 ml Balance 1270 ml 715 ml 665 ml Exam Neck: non-tender, supple Respiratory: clear to auscultation, normal air movement, No congested cough, No crackles/rales, No diminished breath sounds, No intercostal retraction, No labored breathing, No other, No respirations, No tactile fremitus, No wheezing Cardiovascular: nl pulses, regular rate and rhythm Gastrointestinal: nl liver, spleen, non-tender, soft Results Result Diagram: 03/01/16 0610 03/01/16 0616 SE PETIT MD Mar 01, 2016 17:54
[2016-03-01] MEDS ORDERED: METOPROLOL 5 MG INJ ONE ×2 (18:08→18:31)
[2016-03-01] MEDS ORDERED: BUPIVACAINE 0.25%/EPI (SDV) 30 ML INJ ONE (18:46)
[2016-03-01] MEDS ORDERED: PHENYLephrine (100 MCG/ML) 5ML SYG ONE (18:47)
[2016-03-01] MEDS ORDERED: LIDOCAINE 1% (STERILE-PAK) 30 ML INJ ONE (18:47)
--- NOTE | 2016-03-01 19:03 | CONS ---
Date/Time of Note Date/Time of Note DATE: 03/01/16 TIME: 19:01 Assessment/Plan Assessment/Plan Additional Assessment/Plan 1. Pancolitis, rule out pseudomembranous colitis or ischemic colitis, especially in view of SMA narrowing. 2. Fracture of the ribs. 3. Pneumothorax status post chest tube placement. 4. History of nicotine addiction. 5. Cervical spine injury. 6. History of fall. 7. Peripheral arterial disease. 8. Mild elevation of alkaline phosphatase, most probably related to alcoholic liver disease. 9. Anemia. 10. Chronic kidney disease, worsening. 11.worsening wbc count PLAN: 1. At this point, she is on tigecycline and vancomycin and Flagyl. We will continue. 2. We will start her on a clear liquid diet. 3. Monitor WBC count closely. 4. Surgical consult.pt.going for surgery. 5. Stool for Clostridium difficile toxin. 6. On antibiotic as per Infectious Disease. Consultation Date/Type/Reason Admit Date/Time Feb 24, 2016 at 04:06 Initial Consult Date 24 HR Interval Summary Subjective hx not possible: pt critical Exam/Review of Systems Vital Signs Vitals Vital Signs Date Time Temp Pulse Resp B/P Pulse Ox O2 Delivery O2 Flow Rate FiO2 03/01/16 17:00 92 17 157/53 100 Nasal Cannula 2.0 03/01/16 16:00 97.0 02/26/16 08:10 99 Intake and Output 02/29/16 02/29/16 03/01/16 15:00 23:00 07:00 Intake Total 1330 ml 750 ml 725 ml Output Total 60 ml 35 ml 60 ml Balance 1270 ml 715 ml 665 ml Exam Constitutional: alert, oriented, well developed Psych: nl mood/affect, no complaints Head: atraumatic, normocephalic Eyes: EOMI, PERRL, nl conjunctiva, nl lids, nl sclera ENMT: nl external ears & nose, nl lips & teeth, nl nasal mucosa & septum Neck: non-tender, supple Respiratory: clear to auscultation, normal air movement Cardiovascular: nl pulses, regular rate and rhythm Gastrointestinal: nl liver, spleen, non-tender, soft Musculoskeletal: nl extremities to inspection, nl gait and stance Extremities: normal pulses Neurological: FLEET ADMINISTRATOR II-XII intact, nl mental status, nl speech, nl strength Skin: nl turgor, No rash or lesions Lymph: nl lymph nodes Results Result Diagram: 03/01/16 0610 03/01/16 0616 Results 24 hrs Laboratory Tests Test 03/01/16 06:10 03/01/16 06:16 03/01/16 12:40 Anisocytosis 1+ Band Neutrophils % 15.0 H Blood Morphology Comment Hematocrit 35.1 L Hemoglobin 11.6 L Lymphocytes # 1.8 Lymphocytes % 4.0 L Mean Corpuscular Hemoglobin 31.8 Mean Corpuscular Hemoglobin Concent 33.1 Mean Corpuscular Volume 96.2 Mean Platelet Volume 9.0 Metamyelocytes # 0.9 Metamyelocytes % 2.0 H Monocytes # 5.0 H Monocytes % 11.0 Myelocytes # 0.5 Myelocytes % 1.0 H Neutrophils # 30.2 H Neutrophils % 67.0 Nucleated Red Blood Cells % 1.0 H Platelet Count 218 Red Blood Count 3.64 L Red Cell Distribution Width 19.0 H Spherocytes 1+ White Blood Count 45.0 #H Alanine Aminotransferase (ALT/SGPT) 37 Albumin 2.0 L Albumin/Globulin Ratio 0.71 Alkaline Phosphatase 128 H Anion Gap 19 H Aspartate Amino Transf (AST/SGOT) 25 Blood Urea Nitrogen 74 H Calcium Level 7.9 L Carbon Dioxide Level 11 L Chloride Level 106 Creatinine 2.82 H Direct Bilirubin 0.00 Globulin 2.80 Glucose Level 128 Indirect Bilirubin 0.1 Potassium Level 4.4 Sodium Level 132 L Total Bilirubin 0.1 L Total Protein 4.8 L Lactic Acid Level 2.0 Medications Medications Current Medications Lorazepam (Ativan) 0.5 mg Q6H PRN IV ANXIETY Last administered on 02/26/16 02: 02; Admin Dose 0.5 MG; Start 02/24/16 at 02:00 Ondansetron HCl (Zofran Inj) 4 mg Q6H PRN IV NAUSEA AND/OR VOMITING Last administered on 03/01/16 13:17; Admin Dose 4 MG; Start 02/24/16 at 02:00 Nitroglycerin (Nitroglycerin (Sl Tab) 0.4 Mg) 1 tab Q5M PRN SL CHEST PAIN; Start 02/24/16 at 02:00 Acetaminophen (Tylenol Tab) 650 mg Q6H PRN PO PAIN LEVEL 1-3 OR FEVER Last administered on 02/27/16 07:46; Admin Dose 650 MG; Start 02/24/16 at 02:00 Acetaminophen/ Hydrocodone Bitart (Allred (5/325)) 1 tab Q6H PRN PO PAIN LEVEL 4 -6 Last administered on 03/01/16 15:05; Admin Dose 1 TAB; Start 02/24/16 at 02: 00 Hydralazine HCl (Apresoline) 10 mg Q6H PRN IV SBP > 160 Last administered on 05:19; Admin Dose 10 MG; Start 02/24/16 at 02:00 Labetalol HCl (Labetalol) 10 mg Q6 PRN IV ELEVATED BLOOD PRESSURE; Start at 23:00 Guaifenesin/ Dextromethorphan (Robitussin Dm Liquid Cup) 5 ml Q6 PRN PO COUGH Last administered on 02/27/16 18:12; Admin Dose 5 ML; Start 02/24/16 at 23:00 Nicotine (Nicoderm 21 Mg/ 24hr) 1 patch DAILY TRANSDERM Last administered on 08:35; Admin Dose 1 PATCH; Start 02/26/16 at 09:00 Morphine Sulfate (morphine) 6 mg Q4H PRN IV SEVERE PAIN LEVEL 7-10 Last administered on 03/01/16 13:10; Admin Dose 6 MG; Start 02/26/16 at 11:30 Docusate Sodium (Colace) 100 mg BID PO Last administered on 03/01/16 08:34; Admin Dose 100 MG; Start 02/26/16 at 21:00 Levothyroxine Sodium (Synthroid) 25 mcg DAILY@06 PO Last administered on 05:18; Admin Dose 25 MCG; Start 02/28/16 at 06:00 Sucralfate 1 gm 1 gm TID PO Last administered on 03/01/16 12:48; Admin Dose 1 GM; Start 02/28/16 at 13:00 Metronidazole (Flagyl 500 Mg (Pmx)) 100 ml @ 100 mls/hr Q6 IVPB Last administered on 03/01/16 11:22; Admin Dose 100 MLS/HR; Start 02/28/16 at 13:30 Vancomycin HCl (Vancomycin Oral Syringe) 250 mg Q6 PO Last administered on 03/01 11:22; Admin Dose 250 MG; Start 02/28/16 at 13:30 Metoclopramide HCl 10 mg 10 mg TID PRN IV N/V Last administered on 02/29/16 16 :01; Admin Dose 10 MG; Start 02/28/16 at 16:00 Dextrose/Sodium Chloride (D5-NS) 1,000 ml @ 75 mls/hr [id number] IV Last administered on 03/01/16 12:46; Admin Dose 75 MLS/HR; Start 02/29/16 at 09:30 Fidaxomicin (Dificid) 200 mg BID PO Last administered on 03/01/16 08:34; Admin Dose 200 MG; Start 02/29/16 at 21:00 CHARISSA WILHELM MD Mar 01, 2016 19:03
[2016-03-01] MEDS ORDERED: NA BICARBONATE 8.4% 50 ML SYG ONE (19:06)
--- NOTE | 2016-03-01 19:55 | PN ---
Date/Time of Note Date/Time of Note DATE: 03/01/16 TIME: 19:54 Assessment/Plan VTE Prophylaxis VTE Prophylaxis Intervention: other Lines/Catheters IV Catheter Type (from Nrsg): Peripheral IV Urinary Cath still in place: Yes Reason Cath still needed: other (indicate) Assessment/Plan Chief Complaint/Hosp Course 1. Left video-assisted thoracic surgery, total pulmonary decortication. 2. Control of chest bleeding.s/p 3. Bronchoscopy s/p 4 s/p fall 5 lung infilterate 6 hyponatremia 7 djd 8 ddd 9 hx htn 10 positive gold test 11 UTI 12HYPOTHYROIDISM 13 collites 14 markos [address] howe and neuro surgery labs id dr marguerite velazquez and dr black to see pain meds labs urine lytes Problems: Subjective 24 Hr Interval Summary Subjective hx not possible: other (abd pain better) Exam/Review of Systems Vital Signs Vitals Vital Signs Date Time Temp Pulse Resp B/P Pulse Ox O2 Delivery O2 Flow Rate FiO2 03/01/16 17:00 92 17 157/53 100 Nasal Cannula 2.0 03/01/16 16:00 97.0 02/26/16 08:10 99 Intake and Output 02/29/16 02/29/16 03/01/16 15:00 23:00 07:00 Intake Total 1330 ml 750 ml 725 ml Output Total 60 ml 35 ml 60 ml Balance 1270 ml 715 ml 665 ml Exam Neck: supple Respiratory: clear to auscultation Cardiovascular: regular rate and rhythm Gastrointestinal: bowel sounds (+), non-tender Extremities: No edema Results Result Diagram: 03/01/16 0610 03/01/16 0616 Results 24 hrs Laboratory Tests Test 03/01/16 06:10 03/01/16 06:16 03/01/16 12:40 Anisocytosis 1+ Band Neutrophils % 15.0 H Blood Morphology Comment Hematocrit 35.1 L Hemoglobin 11.6 L Lymphocytes # 1.8 Lymphocytes % 4.0 L Mean Corpuscular Hemoglobin 31.8 Mean Corpuscular Hemoglobin Concent 33.1 Mean Corpuscular Volume 96.2 Mean Platelet Volume 9.0 Metamyelocytes # 0.9 Metamyelocytes % 2.0 H Monocytes # 5.0 H Monocytes % 11.0 Myelocytes # 0.5 Myelocytes % 1.0 H Neutrophils # 30.2 H Neutrophils % 67.0 Nucleated Red Blood Cells % 1.0 H Platelet Count 218 Red Blood Count 3.64 L Red Cell Distribution Width 19.0 H Spherocytes 1+ White Blood Count 45.0 #H Alanine Aminotransferase (ALT/SGPT) 37 Albumin 2.0 L Albumin/Globulin Ratio 0.71 Alkaline Phosphatase 128 H Anion Gap 19 H Aspartate Amino Transf (AST/SGOT) 25 Blood Urea Nitrogen 74 H Calcium Level 7.9 L Carbon Dioxide Level 11 L Chloride Level 106 Creatinine 2.82 H Direct Bilirubin 0.00 Globulin 2.80 Glucose Level 128 Indirect Bilirubin 0.1 Potassium Level 4.4 Sodium Level 132 L Total Bilirubin 0.1 L Total Protein 4.8 L Lactic Acid Level 2.0 Medications Medications Current Medications Lorazepam (Ativan) 0.5 mg Q6H PRN IV ANXIETY Last administered on 02/26/16 02: 02; Admin Dose 0.5 MG; Start 02/24/16 at 02:00 Ondansetron HCl (Zofran Inj) 4 mg Q6H PRN IV NAUSEA AND/OR VOMITING Last administered on 03/01/16 13:17; Admin Dose 4 MG; Start 02/24/16 at 02:00 Nitroglycerin (Nitroglycerin (Sl Tab) 0.4 Mg) 1 tab Q5M PRN SL CHEST PAIN; Start 02/24/16 at 02:00 Acetaminophen (Tylenol Tab) 650 mg Q6H PRN PO PAIN LEVEL 1-3 OR FEVER Last administered on 02/27/16 07:46; Admin Dose 650 MG; Start 02/24/16 at 02:00 Acetaminophen/ Hydrocodone Bitart ([place] (5/325)) 1 tab Q6H PRN PO PAIN LEVEL 4 -6 Last administered on 03/01/16 15:05; Admin Dose 1 TAB; Start 02/24/16 at 02: 00 Hydralazine HCl (Apresoline) 10 mg Q6H PRN IV SBP > 160 Last administered on 05:19; Admin Dose 10 MG; Start 02/24/16 at 02:00 Labetalol HCl (Labetalol) 10 mg Q6 PRN IV ELEVATED BLOOD PRESSURE; Start at 23:00 Guaifenesin/ Dextromethorphan (Robitussin Dm Liquid Cup) 5 ml Q6 PRN PO COUGH Last administered on 02/27/16 18:12; Admin Dose 5 ML; Start 02/24/16 at 23:00 Nicotine (Nicoderm 21 Mg/ 24hr) 1 patch DAILY TRANSDERM Last administered on 08:35; Admin Dose 1 PATCH; Start 02/26/16 at 09:00 Morphine Sulfate (morphine) 6 mg Q4H PRN IV SEVERE PAIN LEVEL 7-10 Last administered on 03/01/16 13:10; Admin Dose 6 MG; Start 02/26/16 at 11:30 Docusate Sodium (Colace) 100 mg BID PO Last administered on 03/01/16 08:34; Admin Dose 100 MG; Start 02/26/16 at 21:00 Levothyroxine Sodium (Synthroid) 25 mcg DAILY@06 PO Last administered on 05:18; Admin Dose 25 MCG; Start 02/28/16 at 06:00 Sucralfate 1 gm 1 gm TID PO Last administered on 03/01/16 12:48; Admin Dose 1 GM; Start 02/28/16 at 13:00 Metronidazole (Flagyl 500 Mg (Pmx)) 100 ml @ 100 mls/hr Q6 IVPB Last administered on 03/01/16 11:22; Admin Dose 100 MLS/HR; Start 02/28/16 at 13:30 Vancomycin HCl (Vancomycin Oral Syringe) 250 mg Q6 PO Last administered on 03/01 11:22; Admin Dose 250 MG; Start 02/28/16 at 13:30 Metoclopramide HCl 10 mg 10 mg TID PRN IV N/V Last administered on 02/29/16 16 :01; Admin Dose 10 MG; Start 02/28/16 at 16:00 Dextrose/Sodium Chloride (D5-NS) 1,000 ml @ 75 mls/hr [id number] IV Last administered on 03/01/16 12:46; Admin Dose 75 MLS/HR; Start 02/29/16 at 09:30 Fidaxomicin (Dificid) 200 mg BID PO Last administered on 03/01/16 08:34; Admin Dose 200 MG; Start 02/29/16 at 21:00 REMINGTON ZELAYA MD Mar 01, 2016 19:55
[2016-03-01] MEDS ORDERED: HYDROmorphONE 1 MG/ML SYG IV PRN ×3 (20:00)
[2016-03-01] MEDS ORDERED: LABETALOL HCL 20MG INJ IV PRN (20:00)
--- NOTE | 2016-03-01 20:27 | RADRPT ---
PROCEDURE: XR Chest. CLINICAL INDICATION: Status post central line placement TECHNIQUE: AP Portable chest. COMPARISON: 02/24/2016 chest x-ray FINDINGS: The soft tissues and bones are remarkable for an endotracheal tube 1.3 cm above the blaire A left apical chest tube is present without evidence for pneumothorax. An enteric tube is noted in the stomach. A right internal jugular catheter is noted tip in the superior vena cava. Interval dec rease in the previously described left lower lobe consolidation and left pleural effusion. Mild res idual left lower lobe infiltrate is noted. The mediastinum demonstrates mild vascular calcifications of the thoracic aorta and normal size heart. IMPRESSION: 1. Tubes and lines as indicated above without pneumothorax. 2. Interval decrease left lower lobe infiltrate and pleural effusion. 3. Mild atherosclerotic vascular disease RPTAT: HDC .Nazia Sweeney MD, Date Time Electronically viewed and signed by .Nazia Sweeney MD, on 03/01/2016 20:27 .C/
--- NOTE | 2016-03-01 21:00 | OPR ---
Date/Time of Note Date/Time of Note DATE: 03/01/16 TIME: 20:17 Operative Report Procedure Date: Mar 01, 2016 Preoperative Diagnosis Sepsis Pancolitis per CT Possible ischemic colitis versus infectious colitis Significant leukocytosis Worsening renal failure Increasing abdominal pain and distention Postoperative Diagnosis Sepsis Pancolitis per CT Significant leukocytosis Worsening renal failure Increasing abdominal pain and distention Small segment of mid transverse colon mild mottling. Metabolic acidosis on ABG Operation Performed 1. Laparoscopic exploration of the abdomen and pelvis 2. Laparoscopic liver wedge resection biopsy 3. Laparoscopic peritoneal fluid sampling for culture and cytology 4. Local anesthetic injection, [id number] 5. Laparoscopic guided bilateral transversus abdominis plane block Surgeon: CHRISTIANO JENNINGS MD Anesthesia: general (plus local plus regional) Anesthesiologist: MIRANDA LIZ MD Estimated Blood Loss: minimal (5 mL) Specimens Peritoneal fluid for cytology and culture Liver Tubes/Drains None Complications: None Pt Condition Post Procedure: critical (NICU) Disposition: other (ICU) Indications 80-year-old female with multiple comorbidities who has been in ICU with worsening leukocytosis however normal lactic acid. She also has bandemia. Her abdomen has been getting more distended and tender. CT scan recently identified pancolitis. However she is not having diarrhea. She is been on antibiotics for other infections. Based on the findings of pancolitis, worsening pain and tenderness, worsening distention, worsening leukocytosis I had a long discussion with family members and advised them that she may have ischemic bowel. I also advised that the looking inside the abdomen will give us a better answer and if she does have truly ischemic bowel she would need the full resection. I advised family that this is high risk and she is in critical state at this point. Family understood all risks associated with surgery and agree to proceed with abdominal exploration. Risks include but are not limited to bleeding, infection, abscess, seroma, hematoma, bowel injury, leak, peritonitis, hernia formation, other organ injuries, SD, PE, DVT, pneumonia, organ failures, or . Alternatives are to continue the antibiotic and medical care and closely monitor the patient. However family agreed to proceed with surgery at this point. Procedure Description Patient was brought in, placed supine on the operating table, and all pressure points were well-padded. After induction of anesthesia, right IJ central line and left radial a line were placed by anesthesiologist. Both arms were tucked. She is already on antibiotics. She was prepped and draped in usual sterile fashion. Timeout was performed. Local anesthetic was injected at all incision sites. Incision was made in the left upper quadrant and using an Optiview port and the 5 mm 0 scope abdomen was entered and insufflated to 15 mmHg with CO2. Under direct visualization another 5 mm port was placed and left lower quadrant and eventually the right upper quadrant. Bilateral transversus abdominis plane block was performed. Investigation identified the liver to be somewhat nodular and fatty. Liver wedge biopsy was performed and complete hemostasis was obtained. This was sent in formaldehyde to pathology. There was ascites around the liver and the pelvis and along the gutters that was mildly greenish. This was suctioned out and some were sent to pathology for cytology and also culture. Investigation of the intestines identified the small bowel to be dilated and somewhat edematous. Small bowel was run from ligament of Treitz all the way to the terminal ileum and no ischemia was identified. There was minimal adhesions of right colon to the anterior abdominal wall at the site of her previous appendectomy. See comment right colon and initial transverse colon all looked healthy. Small segment of mid transverse colon however was somewhat minimally mottled but no evidence of perforation or significant ischemia was identified. Distal transverse colon and left colon sigmoid and rectum were all healthy looking except generalize edema. Second opinion face time was obtained by Dr. Egan and he agreed not to proceed with the mid transverse colon resection since most of the bowel looks very healthy and that area is not significantly ischemic either. At this point decision was made to terminate the operation at ports and CO2 were removed under direct visualization. There was no bleeding. Wounds were thoroughly irrigated and skin was closed with 4-0 Monocryl in subcuticular fashion. Dermabond was applied. Patient was kept intubated and taken to ICU in guarded condition. All counts were correct at the end of the operation 2. CHRISTIANO JENNINGS MD Mar 01, 2016 20:29
[2016-03-01] MEDS: PROPOFOL 100 ML IV SCH (21:21)
[2016-03-01 21:38] LABS: AADO2 Arterial 32.7 mmHg (7.0-24.0); Arterial Base Excess -16.6 mmol/L (-3.0-3); Arterial COHb 0.3 % (0.0-3.0); Arterial Fraction of Oxyhgb 98.6 % (93.0-99.0); Arterial HCO3 11.6 mmol/L (22.0-26.0); Arterial MetHb 0.5 % (0.0-1.5); Arterial Total Hemglobin 10.8 g/dl (12.0-18.0); MODE VENT - AC
[2016-03-01] MEDS ORDERED: HEPARIN 5,000 UNIT/0.5 ML SYG SC SCH (22:00)
[2016-03-01] MEDS: SODIUM BICARBONATE (IV ADD) 100 MEQ in DEXTROSE 5%-0.45% NACL 900 ML IV SCH (22:21)
[2016-03-02] VITALS (67 sets, daily range): BP systolic 109–161; BP diastolic 44–64; PULSE 75–109; RESP 22–24
[2016-03-02] MEDS: LEVOTHYROXINE 25 MCG TAB PO SCH (05:28)
[2016-03-02] MEDS: metroNIDAZOLE 500 MG/NS (PMX) 100 ML IVPB SCH ×3 (05:28→17:37)
[2016-03-02] MEDS: VANCOMYCIN HCL 250 MG/5ML POSYG PO SCH ×3 (05:29→17:37)
[2016-03-02 05:53] LABS: HEMATOCRIT 28.6 % (37.0-47.0); HEMOGLOBIN 9.6 g/dl (12.0-16.0); MEAN CORPUSCULAR HEMOGLOBIN 31.9 pg (29.0-33.0); MEAN CORPUSCULAR HGB CONC 33.5 g/dl (32.0-37.0); MEAN CORPUSCULAR VOLUME 95.1 fl (82.0-101.0); MEAN PLATELET VOLUME 9.5 fl (7.4-10.4); PLATELET COUNT 159 10^3/UL (140-440); RED BLOOD COUNT 3.01 10^6/ul (4.20-5.40); RED CELL DISTRIBUTION WIDTH 18.6 % (11.5-14.5); UNCORRECTED WBC 34.7 10^3/ul (4.8-10.8); WHITE BLOOD COUNT 34.7 10^3/ul (4.8-10.8)
[2016-03-02 05:59] LABS: ALBUMIN 1.5 g/dl (3.3-4.9); POTASSIUM 3.6 mmol/L (3.5-5.1)
[2016-03-02] MEDS ORDERED: HYDROmorphONE 1 MG/ML SYG IV PRN (06:00)
[2016-03-02 06:02] LABS: ALBUMIN/GLOBULIN RATIO 0.68; CALCIUM 6.9 mg/dl (8.4-10.2); TOTAL PROTEIN 3.7 g/dl (6.1-8.1)
[2016-03-02 06:08] LABS: CONDITION 1; LH ANALYZER COMMENTS 1; SUSPECT 1
[2016-03-02 06:12] LABS: CREATININE 2.66 mg/dl (0.44-1.00)
[2016-03-02 08:23] LABS: AADO2 Arterial 76.5 mmHg (7.0-24.0); Allen Test ACCEPTAB; Arterial Base Excess -7.7 mmol/L (-3.0-3); Arterial COHb 0.2 % (0.0-3.0); Arterial Fraction of Oxyhgb 97.7 % (93.0-99.0); Arterial HCO3 15.2 mmol/L (22.0-26.0); Arterial MetHb 0.5 % (0.0-1.5); Arterial Total Hemglobin 9.6 g/dl (12.0-18.0); MODE VENT - AC
[2016-03-02] MEDS: PROPOFOL 100 ML IV SCH ×2 (08:30→20:37)
--- NOTE | 2016-03-02 08:33 | RADRPT ---
PROCEDURE: XR Chest. CLINICAL INDICATION: Shortness of breath. TECHNIQUE: Single frontal view. COMPARISON: 03/01/2016. FINDINGS: The endotracheal tube, nasogastric tube, right internal jugular vein catheter, and left chest tube r emain in satisfactory position. There is mild left basilar atelectasis or pneumonia, unchanged. Th e lungs are otherwise clear. The heart size is normal. There is calcification in the aorta consistent with atherosclerosis. There is no pleural effusion. There is no pneumothorax. IMPRESSION: 1. No change from 03/01/2016. RPTAT: QQ .Carter Field MD, MD Date Time Electronically viewed and signed by .Carter Field MD, MD on 03/02/2016 08:33 .R/
[2016-03-02] MEDS: FIDAXOMICIN 200 MG TABLET PO SCH ×2 (09:23→20:37)
[2016-03-02] MEDS: NICOTINE (21 MG/24 HR) PATCH TRANSDERM SCH (09:23)
[2016-03-02 09:57] LABS: LYMPHOCYTES # 1.4 10^3/ul (0.8-2.9); NEUTROPHIL # 31.6 10^3/ul (1.6-7.5)
[2016-03-02 09:58] LABS: ANISOCYTOSIS 1+
[2016-03-02] MEDS: SODIUM BICARBONATE (IV ADD) 100 MEQ in DEXTROSE 5%-0.45% NACL 900 ML IV SCH ×3 (10:22→21:56)
[2016-03-02 14:19] LABS: AADO2 Arterial 68.3 mmHg (7.0-24.0); Arterial Base Excess -14.2 mmol/L (-3.0-3); Arterial COHb 0.3 % (0.0-3.0); Arterial Fraction of Oxyhgb 97.6 % (93.0-99.0); Arterial HCO3 13.9 mmol/L (22.0-26.0); Arterial MetHb 0.6 % (0.0-1.5); Arterial Total Hemglobin 10.8 g/dl (12.0-18.0); MODE VENT - AC
[2016-03-02] MEDS: HYDROmorphONE 1 MG/ML SYG IV PRN (17:01)
--- NOTE | 2016-03-02 19:26 | PN ---
Date/Time of Note Date/Time of Note DATE: 03/02/16 TIME: 19:24 Assessment/Plan VTE Prophylaxis VTE Prophylaxis Intervention: other Lines/Catheters IV Catheter Type (from Nrsg): Central Line Central line still needed: Yes Urinary Cath still in place: Yes Reason Cath still needed: other (indicate) Assessment/Plan Chief Complaint/Hosp Course 1. Left video-assisted thoracic surgery, total pulmonary decortication. 2.s/p Control of chest bleeding. 3. Bronchoscopy s/p 4 s/p fall 5 lung infilterate 6 hyponatremia better 7 djd 8 ddd 9 hx htn 10 positive gold test 11 UTI 12HYPOTHYROIDISM 13 collites 14 markos 15 atn 16 metabolic acidosis plan per dr howe and neuro surgery labs id dr marguertie velazquez and dr jennings to see pain meds labs urine lytes sodium bicarbonate Problems: Subjective 24 Hr Interval Summary Cardiovascular: no complaints Gastrointestinal: No diarrhea Genitourinary: no complaints Exam/Review of Systems Vital Signs Vitals Vital Signs Date Time Temp Pulse Resp B/P Pulse Ox O2 Delivery O2 Flow Rate FiO2 03/02/16 18:30 97 24 155/58 100 03/02/16 18:00 Mechanical Ventilator 03/02/16 17:00 35 03/02/16 16:00 98.8 03/02/16 08:00 Intake and Output 03/01/16 03/01/16 03/02/16 15:00 23:00 07:00 Intake Total 1000 ml 1177.961 ml 816.920 ml Output Total 80 ml 90 ml 30 ml Balance 920 ml 1087.961 ml 786.920 ml Exam Respiratory: clear to auscultation Cardiovascular: regular rate and rhythm Gastrointestinal: bowel sounds (+), non-tender Extremities: edema (tr) Neurological: nl mental status Results Result Diagram: 03/02/16 0450 03/02/16 0450 Results 24 hrs Laboratory Tests Test 03/01/16 20:20 03/02/16 04:50 03/02/16 07:00 Arterial Blood HCO3 13.9 L 15.2 L Arterial Blood Base Excess -14.2 L -7.7 L Arterial Blood Oxygen Saturation 98.5 98.4 Kaiden Test N/A ACCEPTAB Arterial Blood Gas Puncture Site A-Line Right Radial Arterial Blood Carboxyhemoglobin 0.3 0.2 Arterial Blood Date Drawn 03/01/2016 8:10:00 PM 03/02/2016 7:50:19 AM Arterial Blood Methemoglobin 0.6 0.5 Arterial Blood pCO2 (Temp correct) 41.0 23.2 L Arterial Blood pH (Temp corrected) 7.149 *L 7.433 Arterial Blood pO2 (Temp corrected) 169.8 H 146.1 H Blood Gas A-a O2 Differential 68.3 H 76.5 H Blood Gas Actual Respiration Rate 12 24 Blood Gas Critical Value Read Back Solomon JENNINGS MD Blood Gas Low PEEP Setting 5.0 5.0 Blood Gas Modality VENT - AC VENT - AC Blood Gas Notified Time 03/01/2016 9:44:00 PM 03/02/2016 8:20:31 AM Blood Gas Notified Whom IJEOMA BULLOCK Blood Gas Respiration Rate 12.0 24.0 Blood Gas Specimen Source Blood arterial Blood arterial Blood Gas Temperature 37.0 37.0 Blood Gas Tidal Volume 450.0 500.0 FiO2 40.0 35.0 Oxyhemoglobin Percent 97.6 97.7 Total Hemoglobin 10.8 L 9.6 L Alanine Aminotransferase (ALT/SGPT) 36 Albumin 1.5 L Albumin/Globulin Ratio 0.68 Alkaline Phosphatase 97 Anion Gap 18 H Anisocytosis 1+ Aspartate Amino Transf (AST/SGOT) 31 Band Neutrophils % 5.0 Blood Morphology Comment Blood Urea Nitrogen 79 H Calcium Level 6.9 L Carbon Dioxide Level 15 L Chloride Level 110 Creatinine 2.66 H Direct Bilirubin 0.00 Globulin 2.20 Glucose Level 102 Hematocrit 28.6 L Hemoglobin 9.6 L Indirect Bilirubin 0.0 Lymphocytes # 1.4 Lymphocytes % 4.0 L Mean Corpuscular Hemoglobin 31.9 Mean Corpuscular Hemoglobin Concent 33.5 Mean Corpuscular Volume 95.1 Mean Platelet Volume 9.5 Neutrophils # 31.6 H Neutrophils % 91.0 H Platelet Count 159 # Potassium Level 3.6 Red Blood Count 3.01 L Red Cell Distribution Width 18.6 H Sodium Level 139 Total Bilirubin 0.0 L Total Protein 3.7 #L White Blood Count 34.7 #H Medications Medications Current Medications Lorazepam (Ativan) 0.5 mg Q6H PRN IV ANXIETY Last administered on 02/26/16t 02: 02; Admin Dose 0.5 MG; Start 02/24/16 at 02:00 Ondansetron HCl (Zofran Inj) 4 mg Q6H PRN IV NAUSEA AND/OR VOMITING Last administered on 03/01/16 13:17; Admin Dose 4 MG; Start 02/24/16 at 02:00 Nitroglycerin (Nitroglycerin (Sl Tab) 0.4 Mg) 1 tab Q5M PRN SL CHEST PAIN; Start 02/24/16 at 02:00 Hydralazine HCl (Apresoline) 10 mg Q6H PRN IV SBP > 160 Last administered on 05:19; Admin Dose 10 MG; Start 02/24/16 at 02:00 Labetalol HCl (Labetalol) 10 mg Q6 PRN IV ELEVATED BLOOD PRESSURE; Start at 23:00 Guaifenesin/ Dextromethorphan (Robitussin Dm Liquid Cup) 5 ml Q6 PRN PO COUGH Last administered on 02/27/16 18:12; Admin Dose 5 ML; Start 02/24/16 at 23:00 Nicotine (Nicoderm 21 Mg/ 24hr) 1 patch DAILY TRANSDERM Last administered on 09:23; Admin Dose 1 PATCH; Start 02/26/16 at 09:00 Levothyroxine Sodium 25 mcg 25 mcg DAILY@06 PO Last administered on 03/02/16 05:28; Admin Dose 25 MCG; Start 02/28/16 at 06:00 Metronidazole (Flagyl 500 Mg (Pmx)) 100 ml @ 100 mls/hr Q6 IVPB Last administered on 03/02/16 17:37; Admin Dose 100 MLS/HR; Start 02/28/16 at 13:30 Vancomycin HCl (Vancomycin Oral Syringe) 250 mg Q6 PO Last administered on 03/02 17:37; Admin Dose 250 MG; Start 02/28/16 at 13:30 Fidaxomicin 200 mg 200 mg BID PO Last administered on 03/02/16 09:23; Admin Dose 200 MG; Start 02/29/16 at 21:00 Propofol 100 ml @ 1.692 mls/ hr Q12H IV Last administered on 03/01/16 21:21; Admin Dose 1.692 MLS/HR; Start 03/01/16 at 20:30 Sodium Bicarbonate/ Dextrose/Sodium Chloride (Na Bicarb/D5-1/ 2ns) 1,000 ml @ 100 mls/hr Q10H IV Last administered on 03/02/16 10:22; Admin Dose 100 MLS/HR ; Start 03/01/16 at 22:00 Hydromorphone HCl (Dilaudid) 0.5 mg Q3 PRN IV PAIN Last administered on 17:01; Admin Dose 0.5 MG; Start 03/02/16 at 17:00 REMINGTON ZELAYA MD Mar 02, 2016 19:26
--- NOTE | 2016-03-02 21:04 | PN ---
Date/Time of Note Date/Time of Note DATE: 03/02/16 TIME: 21:00 Assessment/Plan Lines/Catheters IV Catheter Type (from [facility]): Central Line Francois in Place (from [facility]): Yes Assessment/Plan Chief Complaint/Hosp Course 1. Abdominal pain, with CT diagnosis of pancolitis, with significant leukocytosis and bandemia. s/p Lap exploration and only small mid transverse with min mottling. WBC and bands improving slowly. Bowel function. -Aggressive antibiotic therapy (? add rectal vancomycin) -Judicious fluid management -Medical optimization 2. Sepsis, multifactorial (pancolitis ? ischemic, urinary tract infection, pulmonary infiltrates, bacteremia). -Aggressive antibiotic therapy. -Judicious fluid management. -Close monitoring. 3. Renal insufficiency secondary to sepsis. Improving Cr today -Continue judicious fluid management. -Avoid nephrotoxic agents as possible. 4. Anemia, with recent hemothorax requiring VATS decortication. -Continue chest tube and monitor output. -CT surgery following. -Transfuse as needed. 5. Hypoalbuminemia. -Eventual nutritional optimization. 6. Hyponatremia -Correct with fluid management. 7. Hypertension. -Nutritional and medication optimization. 8. Hypothyroidism. -Replace hormone. 9. Hemopneumothorax, status post VATS, and currently has chest tube, followed by CT surgery. 10. Cervical spine injury, being maintained in brace by neurosurgery. Thank you, Problems: Subjective 24 Hr Interval Summary s/p Abdominal exploration 03/01. Continues to be intubated. Slowly improving leukocytosis. Bandemia resolved. No f/c. No v. Bowel movement with flatus. Bloated. Tenderness. No cough. No sz. No rash, ho, visual or neuro changes. Exam/Review of Systems Vital Signs Vitals Vital Signs Date Time Temp Pulse Resp B/P Pulse Ox O2 Delivery O2 Flow Rate FiO2 03/02/16 18:30 97 24 155/58 100 03/02/16 18:00 Mechanical Ventilator 03/02/16 17:00 35 03/02/16 16:00 98.8 03/02/16 08:00 Intake and Output 03/01/16 03/01/16 03/02/16 15:00 23:00 07:00 Intake Total 1000 ml 1177.961 ml 816.920 ml Output Total 80 ml 90 ml 30 ml Balance 920 ml 1087.961 ml 786.920 ml Exam Free Text/Dictation GENERAL: Ventilated, NAD HEENT: Pupils equal, reactive. No scleral icterus. Mucous membranes are somewhat dry. NECK: No crepitus. No JVD. PULMONARY: Minimally coarse. Left sided chest tube. ABDOMEN: Diffuse tenderness, not rigid, distended EXTREMITIES: Trace edema. VASCULAR: Capillary refill is 2 seconds. NEUROLOGIC: Ventilated and sedated SKIN: No rashes/jaundice. PSYCH: Ventilated Results Result Diagram: 03/02/16 0450 03/02/16 0450 CHRISTIANO JENNINGS MD Mar 02, 2016 21:03
[2016-03-02] MEDS: HEPARIN 5,000 UNIT/0.5 ML SYG SC SCH (21:59)
--- NOTE | 2016-03-02 22:11 | CONS ---
Date/Time of Note Date/Time of Note DATE: 03/02/16 TIME: 22:08 Assessment/Plan Assessment/Plan Additional Assessment/Plan Additional Assessment/Plan 1. Pancolitis, rule out pseudomembranous colitis or ischemic colitis, especially in view of SMA narrowing. 2. Fracture of the ribs. 3. Pneumothorax status post chest tube placement. 4. History of nicotine addiction. 5. Cervical spine injury. 6. History of fall. 7. Peripheral arterial disease. 8. Mild elevation of alkaline phosphatase, most probably related to alcoholic liver disease. 9. Anemia. 10. Chronic kidney disease, worsening. 11.s/p exploratory laparotomy,no bowel resection PLAN: 1. At this point, she is on tigecycline and vancomycin and Flagyl. We will continue. 2. We will start her on a clear liquid diet. 3. Monitor WBC count closely. 4. continue post op care,so far no stool was sent for c.difficile 5. Stool for Clostridium difficile toxin. 6. On antibiotic as per Infectious Disease. Consultation Date/Type/Reason Admit Date/Time Feb 24, 2016 at 04:06 24 HR Interval Summary Subjective hx not possible: pt critical Exam/Review of Systems Vital Signs Vitals Vital Signs Date Time Temp Pulse Resp B/P Pulse Ox O2 Delivery O2 Flow Rate FiO2 03/02/16 21:00 98 24 147/61 100 Mechanical Ventilator 03/02/16 20:00 99.1 03/02/16 20:00 35 03/02/16 08:00 Intake and Output 03/01/16 03/01/16 03/02/16 15:00 23:00 07:00 Intake Total 1000 ml 1177.961 ml 816.920 ml Output Total 80 ml 90 ml 30 ml Balance 920 ml 1087.961 ml 786.920 ml Exam Constitutional: alert, oriented, well developed Psych: nl mood/affect, no complaints Head: atraumatic, normocephalic Eyes: EOMI, PERRL, nl conjunctiva, nl lids, nl sclera ENMT: nl external ears & nose, nl lips & teeth, nl nasal mucosa & septum Neck: non-tender, supple Respiratory: clear to auscultation, normal air movement Cardiovascular: nl pulses, regular rate and rhythm Gastrointestinal: nl liver, spleen, non-tender, soft Musculoskeletal: nl extremities to inspection, nl gait and stance Extremities: normal pulses Neurological: ASSISTANT ADMINISTRATOR II-XII intact, nl mental status, nl speech, nl strength Skin: nl turgor, No rash or lesions Lymph: nl lymph nodes Results Result Diagram: 03/02/160 03/02/16 0450 Results 24 hrs Laboratory Tests Test 03/02/16 04:50 03/02/16 07:00 Alanine Aminotransferase (ALT/SGPT) 36 Albumin 1.5 L Albumin/Globulin Ratio 0.68 Alkaline Phosphatase 97 Anion Gap 18 H Anisocytosis 1+ Aspartate Amino Transf (AST/SGOT) 31 Band Neutrophils % 5.0 Blood Morphology Comment Blood Urea Nitrogen 79 H Calcium Level 6.9 L Carbon Dioxide Level 15 L Chloride Level 110 Creatinine 2.66 H Direct Bilirubin 0.00 Globulin 2.20 Glucose Level 102 Hematocrit 28.6 L Hemoglobin 9.6 L Indirect Bilirubin 0.0 Lymphocytes # 1.4 Lymphocytes % 4.0 L Mean Corpuscular Hemoglobin 31.9 Mean Corpuscular Hemoglobin Concent 33.5 Mean Corpuscular Volume 95.1 Mean Platelet Volume 9.5 Neutrophils # 31.6 H Neutrophils % 91.0 H Platelet Count 159 # Potassium Level 3.6 Red Blood Count 3.01 L Red Cell Distribution Width 18.6 H Sodium Level 139 Total Bilirubin 0.0 L Total Protein 3.7 #L White Blood Count 34.7 #H Arterial Blood HCO3 15.2 L Arterial Blood Base Excess -7.7 L Arterial Blood Oxygen Saturation 98.4 Kaiden Test ACCEPTAB Arterial Blood Gas Puncture Site Right Radial Arterial Blood Carboxyhemoglobin 0.2 Arterial Blood Date Drawn 03/02/2016 7:50:19 AM Arterial Blood Methemoglobin 0.5 Arterial Blood pCO2 (Temp correct) 23.2 L Arterial Blood pH (Temp corrected) 7.433 Arterial Blood pO2 (Temp corrected) 146.1 H Blood Gas A-a O2 Differential 76.5 H Blood Gas Actual Respiration Rate 24 Blood Gas Low PEEP Setting 5.0 Blood Gas Modality VENT - AC Blood Gas Notified Time 03/02/2016 8:20:31 AM Blood Gas Notified Whom JLD Blood Gas Respiration Rate 24.0 Blood Gas Specimen Source Blood arterial Blood Gas Temperature 37.0 Blood Gas Tidal Volume 500.0 FiO2 35.0 Oxyhemoglobin Percent 97.7 Total Hemoglobin 9.6 L Medications Medications Current Medications Lorazepam (Ativan) 0.5 mg Q6H PRN IV ANXIETY Last administered on 02/26/16 02: 02; Admin Dose 0.5 MG; Start 02/24/16 at 02:00 Ondansetron HCl (Zofran Inj) 4 mg Q6H PRN IV NAUSEA AND/OR VOMITING Last administered on 03/01/16 13:17; Admin Dose 4 MG; Start 02/24/16 at 02:00 Nitroglycerin (Nitroglycerin (Sl Tab) 0.4 Mg) 1 tab Q5M PRN SL CHEST PAIN; Start 02/24/16 at 02:00 Hydralazine HCl (Apresoline) 10 mg Q6H PRN IV SBP > 160 Last administered on 05:19; Admin Dose 10 MG; Start 02/24/16 at 02:00 Labetalol HCl (Labetalol) 10 mg Q6 PRN IV ELEVATED BLOOD PRESSURE; Start at 23:00 Guaifenesin/ Dextromethorphan (Robitussin Dm Liquid Cup) 5 ml Q6 PRN PO COUGH Last administered on 02/27/16 18:12; Admin Dose 5 ML; Start 02/24/16 at 23:00 Nicotine (Nicoderm 21 Mg/ 24hr) 1 patch DAILY TRANSDERM Last administered on 09:23; Admin Dose 1 PATCH; Start 02/26/16 at 09:00 Levothyroxine Sodium 25 mcg 25 mcg DAILY@06 PO Last administered on 03/02/16 05:28; Admin Dose 25 MCG; Start 02/28/16 at 06:00 Metronidazole (Flagyl 500 Mg (Pmx)) 100 ml @ 100 mls/hr Q6 IVPB Last administered on 03/02/16 17:37; Admin Dose 100 MLS/HR; Start 02/28/16 at 13:30 Vancomycin HCl (Vancomycin Oral Syringe) 250 mg Q6 PO Last administered on 03/02 17:37; Admin Dose 250 MG; Start 02/28/16 at 13:30 Fidaxomicin 200 mg 200 mg BID PO Last administered on 03/02/16 20:37; Admin Dose 200 MG; Start 02/29/16 at 21:00 Propofol 100 ml @ 1.692 mls/ hr Q12H IV Last administered on 03/02/16 20:37; Admin Dose 3.384 MLS/HR; Start 03/01/16 at 20:30 Sodium Bicarbonate/ Dextrose/Sodium Chloride (Na Bicarb/D5-1/ 2ns) 1,000 ml @ 100 mls/hr Q10H IV Last administered on 03/02/16 21:56; Admin Dose 100 MLS/HR ; Start 03/01/16 at 22:00 Hydromorphone HCl (Dilaudid) 0.5 mg Q3 PRN IV PAIN Last administered on 17:01; Admin Dose 0.5 MG; Start 03/02/16 at 17:00 Sodium Bicarbonate (Na Bicarb 8.4% Syg) 50 ml BID IV ; Start 03/02/16 at 21:00; Stop 03/04/16 at 09:01 Heparin Sodium (Porcine) (Heparin (5000 Units/0.5 ml)) 5,000 unit BID SC Last administered on 03/02/16 21:59; Admin Dose 5,000 UNIT; Start 03/02/16 at 21:30 CHARISSA WILHELM MD Mar 02, 2016 22:10
[2016-03-02] MEDS: NA BICARBONATE 8.4% 50 ML SYG IV SCH (23:07)
[2016-03-03] VITALS (46 sets, daily range): BP systolic 88–167; BP diastolic 47–72; PULSE 75–96; RESP 24
[2016-03-03] MEDS: VANCOMYCIN HCL 250 MG/5ML POSYG PO SCH ×2 (00:11→05:10)
[2016-03-03] MEDS: metroNIDAZOLE 500 MG/NS (PMX) 100 ML IVPB SCH ×4 (00:12→17:56)
[2016-03-03] MEDS: HYDROmorphONE 1 MG/ML SYG IV PRN ×5 (00:12→15:59)
[2016-03-03 05:04] LABS: HEMATOCRIT 31.4 % (37.0-47.0); HEMOGLOBIN 10.4 g/dl (12.0-16.0); MEAN CORPUSCULAR HEMOGLOBIN 31.1 pg (29.0-33.0); MEAN CORPUSCULAR VOLUME 94.1 fl (82.0-101.0); MEAN PLATELET VOLUME 9.7 fl (7.4-10.4); PLATELET COUNT 152 10^3/UL (140-440); RED BLOOD COUNT 3.34 10^6/ul (4.20-5.40); RED CELL DISTRIBUTION WIDTH 19.1 % (11.5-14.5); UNCORRECTED WBC 27.6 10^3/ul (4.8-10.8); WHITE BLOOD COUNT 27.6 10^3/ul (4.8-10.8)
[2016-03-03] MEDS: LEVOTHYROXINE 25 MCG TAB PO SCH (05:10)
[2016-03-03 05:11] LABS: ALBUMIN 1.6 g/dl (3.3-4.9)
[2016-03-03 05:13] LABS: CREATININE 2.47 mg/dl (0.44-1.00)
[2016-03-03 05:14] LABS: ALBUMIN/GLOBULIN RATIO 0.66; BILIRUBIN,INDIRECT 0.1 mg/dl (0-1.1); BILIRUBIN,TOTAL 0.1 mg/dl (0.2-1.3); CONDITION 1; LH ANALYZER COMMENTS 1; SUSPECT 1
[2016-03-03 05:24] LABS: POTASSIUM 2.9 mmol/L (3.5-5.1)
[2016-03-03] MEDS ORDERED: POTASSIUM CHLORIDE 20 MEQ POWDER FOR ORAL SOLN PO PRN ×2 (06:00)
[2016-03-03] MEDS ORDERED: POTASSIUM CHLORIDE 250 ML IVPB ONE (06:00)
[2016-03-03] MEDS: NICOTINE (21 MG/24 HR) PATCH TRANSDERM SCH (08:16)
[2016-03-03] MEDS: FIDAXOMICIN 200 MG TABLET PO SCH (08:16)
[2016-03-03] MEDS: HEPARIN 5,000 UNIT/0.5 ML SYG SC SCH ×2 (08:42→22:02)
[2016-03-03] MEDS: SODIUM BICARBONATE (IV ADD) 100 MEQ in DEXTROSE 5%-0.45% NACL 900 ML IV SCH (10:22)
[2016-03-03] MEDS: NA BICARBONATE 8.4% 50 ML SYG IV SCH ×2 (10:45→22:05)
[2016-03-03] MEDS: PROPOFOL 100 ML IV SCH (10:46)
--- NOTE | 2016-03-03 11:45 | PN ---
DATE: 03/03/2016 SUBJECTIVE: No acute changes overnight. No fevers. The patient is intubated, lying comfortably in bed and in no distress. VITAL SIGNS: T-max 99.6, T-current 98.3, pulse 81, respirations 24, blood pressure 140/64, saturati on 100 on FIO2 of 35, WBC 27.6, H and H 10.4 and 31.4, platelets 152, BUN 81, creatinine 2.47. MICROBIOLOGY: Stool for C. diff came back negative. ANTIMICROBIALS: The patient is on IV Flagyl. INDWELLINGS: Endotracheal tube, NG tube, Francois catheter, peripheral IV and chest tube. PHYSICAL EXAMINATION: GENERAL: Fragile, elderly woman who is lying comfortably in bed. HEENT: Head atraumatic, normocephalic. Sclerae anicteric. Buccal mucosa dry. NECK: Supple, trachea midline. CHEST: Rise symmetrical. Breath sounds diminished to bases. HEART: S1, S2. ABDOMEN: Soft. Bowel tones present. EXTREMITIES: With trace edema. ASSESSMENT: 1. Systemic inflammatory response syndrome with persistent leukocytosis, slowly tracing down, so fa r blood cultures have been negative and stool for C. diff came back negative from yesterday. 2. Status post enterococcal urinary tract infection. 3. Pancolitis status post laparoscopic exploration of the abdomen and pelvis with liver wedge resec tion biopsy. 4. Acute renal failure. 5. Respiratory failure, patient remains on vent postoperatively. 6. Coagulase-negative staph bacteremia on admission consistent with contaminant. 7. 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 8. Pneumothorax status post chest tube placement. 9. Cervical spine injury. PLAN: The patient remains stable, currently n.p.o. and covered with IV Flagyl. She is being follow ed by multiple consultants. Pathology and fluid cultures pending, but preliminary negative. Above was discussed with family at length at bedside. Dictated By: PHOEBE BANDA SITE SUPERVISING TECHNICAL OPERATOR for JUAN THOMAS/JOSUÉ Conf#: [id number] DID#: [id number]
--- NOTE | 2016-03-03 11:51 | CONS ---
DATE OF ADMISSION: 02/24/2016 DATE OF CONSULTATION: 03/03/2016 TYPE OF CONSULTATION: Pulmonary. REFERRING PHYSICIAN: Klever Arroyo MD REASON FOR CONSULTATION: Acute respiratory failure. HISTORY OF PRESENT ILLNESS: This is a 80-year-old woman who sustained a fall from roof in [place]. Subsequently, she was noted to have 4 rib fractures on the left side along with pneumothorax and hem othorax, which was treated with chest tube drainage. Subsequently, chest tube was removed. The pat ielinda was brought back to the [place]. Here she presented with increasing shortness of breath and was found to have a large left hemothorax. The patient was seen by Dr. Patel in consultatio n and underwent a video-assisted thoracoscopic surgery with decortication evacuation of a hemothorax . A chest tube was placed. The patient then was transferred to ICU and was noted to be spiking fev ers along with a high white count. The patient was seen by Dr. Graham Raza in general surgical cons ultation and was thought to have possible ischemic versus under form of colitis. Subsequently, she was taken to OR and found to have pancolitis. No resection was done. The patient subsequently valera sferred to ICU on the ventilator. Currently she is orally intubated, saturating 100%. No further h istory available at this time. REVIEW OF SYSTEMS: Unable to obtain at this time. PAST MEDICAL HISTORY: As mentioned above. Reportedly, a history of CKD as well. ALLERGIES: NONE KNOWN TO ME. SOCIAL HABITS: Unknown. FAMILY HISTORY: Unknown. PHYSICAL EXAMINATION: VITAL SIGNS: Blood pressure 140/64, pulse 84, respirations 24, temperature afebrile. HEENT: Pupils are equal and reactive to light, orally intubated. NECK: Supple, no JVD noted, no cervical adenopathy, no carotid bruits heard. LUNGS: Fair breath sounds bilaterally, decreased breath sounds at the left base. CARDIOVASCULAR: S1, S2 normal. ABDOMEN: Soft, nontender postop. EXTREMITIES: No clubbing, cyanosis, or edema noted. NEUROLOGICAL: Currently sedated on the vent. LABORATORIES: ABG yesterday was pH of 7.43, pCO2 of 23, pO2 146. Sodium 142, potassium 2.9, chlori de 108, CO2 21, BUN 81, creatinine 2.47, glucose 106. WBC 27.6, hemoglobin 10.4, hematocrit 31.4, p latelets 152. IMAGING: On chest x-ray from 03/02/2016, there is no pneumothorax or pleural effusion. Left-sided chest tube is in place. There is mild left basilar atelectasis. IMPRESSION: A 80-year-old female with: 1. Acute respiratory failure, hypoxemic. 2. Status post exploratory laparotomy with findings consistent with pancolitis. 3. Status post fall with left hemopneumothorax currently with chest tube, status post VATS. 4. Acute on chronic renal failure. 5. Anemia. RECOMMENDATIONS 1. Continue ventilator support for now. 2. Postop care. 3. Continue chest tube drainage. 4. Continue antibiotics per ID. 5. Gastrointestinal recommendations noted. 6. Will assess for weaning in next 1 to 2 days. Dictated By: RASHEL CHENG MD, MA/JOSUÉ Conf#: [id number] DID#: [id number]
--- NOTE | 2016-03-03 12:23 | PN ---
DATE: Creatinine 2.66. MICROBIOLOGY: Blood cultures since admission February urine culture grew Enterococcus. culture. DIAGNOSTICS: Chest x-ray this morning revealed clear lung simeon. INDWELLINGS: Patient has left chest tube. Francois catheter IV. ANTIMICROBIALS: The patient is currently on IV Flagyl and p.o. vancomycin and _ ____ on hold secondary to n.p.o. PHYSICAL EXAMINATION: GENERAL: Fragile, elderly woman who lying comfortably in bed. HEENT: Head is normocephalic, sclerae anicteric. NECK: Supple. Trachea midline. CHEST: Rise is symmetrical. Breath sounds diminished at bases. HEART: S1, S2. ABDOMEN: Soft. The patient has dressings that are intact. EXTREMITIES: Without cyanosis. ASSESSMENT: 1. Sepsis with significant leukocytosis and multisystem organ failure. 2. Pancolitis, status post laparoscopic exploration of the abdomen and pelvis with a wedge resection biopsy. Postop day #1. 3. Postoperative respiratory failure. 4. Coag-negative staph bacteremia on admission, continue with 5. S/p cervical spine injury with pneumothorax from fracture of the ribs secondary to fall. The patient is status post VATS on February 24 with chest tube placement. 7. Positive QTG test ==> no active issues. PLAN: The patient remains hemodynamically stable postoperatively. She is being followed by multiple consultants pending intraoperative cultures and peritoneal fluid cultures. Continue on the IV Flagyl for now and follow recommendations of consultants. Dictated By: PHOEBE BANDA MACHINE OPERATOR [employer] nathalie THOMAS/JOSUÉ Conf#: [id number] DID#: [id number] VIN
--- NOTE | 2016-03-03 14:20 | CONS ---
Date/Time of Note Date/Time of Note DATE: 03/03/16 TIME: 14:17 Assessment/Plan Assessment/Plan Additional Assessment/Plan Additional Assessment/Plan 1. Pancolitis, c.difficile negative,no infarct on laparotomy exam 2. Fracture of the ribs. 3. Pneumothorax status post chest tube placement. 4. History of nicotine addiction. 5. Cervical spine injury. 6. History of fall. 7. Peripheral arterial disease. 8. Mild elevation of alkaline phosphatase, most probably related to alcoholic liver disease. 9. Anemia. 10. Chronic kidney disease, worsening. 11.s/p exploratory laparotomy,no bowel resection 12.respiratory failure PLAN: 1. At this point, she is on tigecycline and vancomycin and Flagyl. We will continue. 2. feeding as per surgeon 3. Monitor WBC count closely. 4. continue post op care,so far no stool was sent for c.difficile 5. Stool for Clostridium difficile toxin. 6. On antibiotic as per Infectious Disease. Consultation Date/Type/Reason Admit Date/Time Feb 24, 2016 at 04:06 24 HR Interval Summary Subjective hx not possible: pt non-verbal, pt critical Exam/Review of Systems Vital Signs Vitals Vital Signs Date Time Temp Pulse Resp B/P Pulse Ox O2 Delivery O2 Flow Rate FiO2 03/03/16 12:00 81 03/03/16 11:10 24 100 35 03/03/16 11:00 126/57 Mechanical Ventilator 03/03/16 08:00 98.8 03/02/16 08:00 Intake and Output 03/02/16 03/02/16 03/03/16 15:00 23:00 07:00 Intake Total 30.456 ml 1278.426 ml 847.563 ml Output Total 100 ml 90 ml 30 ml Balance -69.544 ml 1188.426 ml 817.563 ml Exam Constitutional: alert, oriented, well developed Psych: nl mood/affect, no complaints Head: atraumatic, normocephalic Eyes: EOMI, PERRL, nl conjunctiva, nl lids, nl sclera ENMT: nl external ears & nose, nl lips & teeth, nl nasal mucosa & septum Neck: non-tender, supple Respiratory: clear to auscultation, normal air movement Cardiovascular: nl pulses, regular rate and rhythm Gastrointestinal: nl liver, spleen, non-tender, soft Musculoskeletal: nl extremities to inspection, nl gait and stance Extremities: normal pulses Neurological: OPERATIONS TEAM LEADER II-XII intact, nl mental status, nl speech, nl strength Skin: nl turgor, No rash or lesions Lymph: nl lymph nodes Results Result Diagram: 03/03/16 0330 03/03/16 0330 Results 24 hrs Laboratory Tests Test 03/03/16 03:00 03/03/16 03:30 Urine Eosinophils % 0.0 Urine Protein/Creatinine Ratio Urine Random Creatinine Urine Random Sodium < 13 L Urine Total Protein Alanine Aminotransferase (ALT/SGPT) 36 Albumin 1.6 L Albumin/Globulin Ratio 0.66 Alkaline Phosphatase 143 H Anion Gap 16 Aspartate Amino Transf (AST/SGOT) 42 Blood Morphology Comment Blood Urea Nitrogen 81 H Calcium Level 7.0 L Carbon Dioxide Level 21 Chloride Level 108 Creatinine 2.47 H Direct Bilirubin 0.00 Globulin 2.40 Glucose Level 106 Hematocrit 31.4 L Hemoglobin 10.4 L Indirect Bilirubin 0.1 Mean Corpuscular Hemoglobin 31.1 Mean Corpuscular Hemoglobin Concent 33.0 Mean Corpuscular Volume 94.1 Mean Platelet Volume 9.7 Platelet Count 152 Potassium Level 2.9 *L Red Blood Count 3.34 L Red Cell Distribution Width 19.1 H Sodium Level 142 Total Bilirubin 0.1 L Total Protein 4.0 L White Blood Count 27.6 #H Medications Medications Current Medications Lorazepam (Ativan) 0.5 mg Q6H PRN IV ANXIETY Last administered on 02/26/16 02: 02; Admin Dose 0.5 MG; Start 02/24/16 at 02:00 Ondansetron HCl (Zofran Inj) 4 mg Q6H PRN IV NAUSEA AND/OR VOMITING Last administered on 03/01/16 13:17; Admin Dose 4 MG; Start 02/24/16 at 02:00 Nitroglycerin (Nitroglycerin (Sl Tab) 0.4 Mg) 1 tab Q5M PRN SL CHEST PAIN; Start 02/24/16 at 02:00 Hydralazine HCl (Apresoline) 10 mg Q6H PRN IV SBP > 160 Last administered on 05:19; Admin Dose 10 MG; Start 02/24/16 at 02:00 Labetalol HCl (Labetalol) 10 mg Q6 PRN IV ELEVATED BLOOD PRESSURE; Start at 23:00 Guaifenesin/ Dextromethorphan (Robitussin Dm Liquid Cup) 5 ml Q6 PRN PO COUGH Last administered on 02/27/16 18:12; Admin Dose 5 ML; Start 02/24/16 at 23:00 Nicotine (Nicoderm 21 Mg/ 24hr) 1 patch DAILY TRANSDERM Last administered on 08:16; Admin Dose 1 PATCH; Start 02/26/16 at 09:00 Levothyroxine Sodium 25 mcg 25 mcg DAILY@06 PO Last administered on 03/03/16 05:10; Admin Dose 25 MCG; Start 02/28/16 at 06:00 Metronidazole 100 ml @ 100 mls/hr Q6 IVPB Last administered on 03/03/16 12:36 ; Admin Dose 100 MLS/HR; Start 02/28/16 at 13:30 Propofol 100 ml @ 1.692 mls/ hr Q12H IV Last administered on 03/03/16 10:46; Admin Dose 5.069 MLS/HR; Start 03/01/16 at 20:30 Sodium Bicarbonate/ Dextrose/Sodium Chloride (Na Bicarb/D5-1/ 2ns) 1,000 ml @ 50 mls/hr Q20H IV Last administered on 03/03/16 10:22; Admin Dose 100 MLS/HR; Start 03/01/16 at 22:00 Hydromorphone HCl (Dilaudid) 0.5 mg Q3 PRN IV PAIN Last administered on 10:22; Admin Dose 0.5 MG; Start 03/02/16 at 17:00 Sodium Bicarbonate (Na Bicarb 8.4% Syg) 50 ml BID IV Last administered on 10:45; Admin Dose 50 ML; Start 03/02/16 at 21:00; Stop 03/04/16 at 09:01 Heparin Sodium (Porcine) (Heparin (5000 Units/0.5 ml)) 5,000 unit BID SC Last administered on 03/03/16 08:42; Admin Dose 5,000 UNIT; Start 03/02/16 at 21:30 CHARISSA WILHELM MD Mar 03, 2016 14:19
[2016-03-03 14:24] LABS: TOTAL CELLS COUNTED % 100
--- NOTE | 2016-03-03 20:16 | PN ---
Date/Time of Note Date/Time of Note DATE: 03/03/16 TIME: 20:15 Assessment/Plan VTE Prophylaxis VTE Prophylaxis Intervention: other Lines/Catheters IV Catheter Type (from Nrsg): Central Line Central line still needed: Yes Urinary Cath still in place: Yes Reason Cath still needed: other (indicate) Assessment/Plan Chief Complaint/Hosp Course 1. Left video-assisted thoracic surgery, total pulmonary decortication. 2.s/p Control of chest bleeding. 3. hypokalemia 4 s/p fall 5 lung infilterate 6 hyponatremia better 7 djd 8 ddd 9 hx htn 10 positive gold test 11 UTI 12HYPOTHYROIDISM 13 collites 14 markos 15 atn 16 metabolic acidosis plan per dr howe and neuro surgery labs id dr marguerite velazquez and dr black to f/u pain meds labs urine lytes sodium bicarbonate kcl Problems: Subjective 24 Hr Interval Summary Subjective hx not possible: other (awake on vent) Exam/Review of Systems Vital Signs Vitals Vital Signs Date Time Temp Pulse Resp B/P Pulse Ox O2 Delivery O2 Flow Rate FiO2 03/03/16 20:00 77 03/03/16 17:10 24 100 35 03/03/16 17:00 113/54 Mechanical Ventilator 03/03/16 16:00 99.0 03/02/16 08:00 Intake and Output 03/02/16 03/02/16 03/03/16 15:00 23:00 07:00 Intake Total 30.456 ml 1278.426 ml 847.563 ml Output Total 100 ml 90 ml 40 ml Balance -69.544 ml 1188.426 ml 807.563 ml Exam Neck: supple Respiratory: diminished breath sounds Cardiovascular: regular rate and rhythm Gastrointestinal: bowel sounds (+), soft Extremities: edema (tr) Results Result Diagram: 03/03/16 0330 03/03/16 0330 Results 24 hrs Laboratory Tests Test 03/03/16 03:00 03/03/16 03:30 Urine Eosinophils % 0.0 Urine Protein/Creatinine Ratio Urine Random Creatinine Urine Random Sodium < 13 L Urine Total Protein Alanine Aminotransferase (ALT/SGPT) 36 Albumin 1.6 L Albumin/Globulin Ratio 0.66 Alkaline Phosphatase 143 H Anion Gap 16 Aspartate Amino Transf (AST/SGOT) 42 Band Neutrophils % 4.0 Basophils # Basophils % Blood Morphology Comment Blood Urea Nitrogen 81 H Calcium Level 7.0 L Carbon Dioxide Level 21 Chloride Level 108 Creatinine 2.47 H Differential Comment MANUAL DIFF Direct Bilirubin 0.00 Eosinophils # Eosinophils % Globulin 2.40 Glucose Level 106 Hematocrit 31.4 L Hemoglobin 10.4 L Indirect Bilirubin 0.1 Lymphocytes # 6.0 H Lymphocytes % 6.0 L Mean Corpuscular Hemoglobin 31.1 Mean Corpuscular Hemoglobin Concent 33.0 Mean Corpuscular Volume 94.1 Mean Platelet Volume 9.7 Monocytes # 5.0 H Monocytes % 5.0 Neutrophils # 85.0 H Neutrophils % 85.0 H Nucleated Red Blood Cells # Nucleated Red Blood Cells % Platelet Count 152 Potassium Level 2.9 *L Red Blood Count 3.34 L Red Cell Distribution Width 19.1 H Sodium Level 142 Total Bilirubin 0.1 L Total Protein 4.0 L White Blood Count 27.6 #H Medications Medications Current Medications Lorazepam (Ativan) 0.5 mg Q6H PRN IV ANXIETY Last administered on 02/26/16 02: 02; Admin Dose 0.5 MG; Start 02/24/16 at 02:00 Ondansetron HCl (Zofran Inj) 4 mg Q6H PRN IV NAUSEA AND/OR VOMITING Last administered on 03/01/16 13:17; Admin Dose 4 MG; Start 02/24/16 at 02:00 Nitroglycerin (Nitroglycerin (Sl Tab) 0.4 Mg) 1 tab Q5M PRN SL CHEST PAIN; Start 02/24/16 at 02:00 Hydralazine HCl (Apresoline) 10 mg Q6H PRN IV SBP > 160 Last administered on 05:19; Admin Dose 10 MG; Start 02/24/16 at 02:00 Labetalol HCl (Labetalol) 10 mg Q6 PRN IV ELEVATED BLOOD PRESSURE; Start at 23:00 Guaifenesin/ Dextromethorphan (Robitussin Dm Liquid Cup) 5 ml Q6 PRN PO COUGH Last administered on 02/27/16 18:12; Admin Dose 5 ML; Start 02/24/16 at 23:00 Nicotine (Nicoderm 21 Mg/ 24hr) 1 patch DAILY TRANSDERM Last administered on 08:16; Admin Dose 1 PATCH; Start 02/26/16 at 09:00 Levothyroxine Sodium 25 mcg 25 mcg DAILY@06 PO Last administered on 03/03/16 05:10; Admin Dose 25 MCG; Start 02/28/16 at 06:00 Metronidazole 100 ml @ 100 mls/hr Q6 IVPB Last administered on 03/03/16 17:56 ; Admin Dose 100 MLS/HR; Start 02/28/16 at 13:30 Propofol 100 ml @ 1.692 mls/ hr Q12H IV Last administered on 03/03/16 10:46; Admin Dose 5.069 MLS/HR; Start 03/01/16 at 20:30 Sodium Bicarbonate/ Dextrose/Sodium Chloride (Na Bicarb/D5-1/ 2ns) 1,000 ml @ 50 mls/hr Q20H IV Last administered on 03/03/16 10:22; Admin Dose 100 MLS/HR; Start 03/01/16 at 22:00 Hydromorphone HCl (Dilaudid) 0.5 mg Q3 PRN IV PAIN Last administered on 15:59; Admin Dose 0.5 MG; Start 03/02/16 at 17:00 Sodium Bicarbonate (Na Bicarb 8.4% Syg) 50 ml BID IV Last administered on 10:45; Admin Dose 50 ML; Start 03/02/16 at 21:00; Stop 03/04/16 at 09:01 Heparin Sodium (Porcine) (Heparin (5000 Units/0.5 ml)) 5,000 unit BID SC Last administered on 03/03/16 08:42; Admin Dose 5,000 UNIT; Start 03/02/16 at 21:30 REMINGTON ZELAYA MD Mar 03, 2016 20:16
[2016-03-03] MEDS ORDERED: TPN 1,000 ML IV SCH (20:30)
--- NOTE | 2016-03-03 23:24 | PN ---
Date/Time of Note Date/Time of Note DATE: 03/03/16 TIME: 23:23 Assessment/Plan Lines/Catheters IV Catheter Type (from [facility]): Central Line Francois in Place (from [facility]): Yes Assessment/Plan Chief Complaint/Hosp Course 1. Abdominal pain, with CT diagnosis of pancolitis, with significant leukocytosis and bandemia. s/p Lap exploration and only small mid transverse with min mottling. WBC and bands improving slowly. Bowel function. -Aggressive antibiotic therapy (? add rectal vancomycin) -Judicious fluid management -Medical optimization 2. Sepsis, multifactorial (pancolitis ? ischemic, urinary tract infection, pulmonary infiltrates, bacteremia). -Aggressive antibiotic therapy. -Judicious fluid management. -Close monitoring. 3. Renal insufficiency secondary to sepsis. Improving Cr today -Continue judicious fluid management. -Avoid nephrotoxic agents as possible. 4. Anemia, with recent hemothorax requiring VATS decortication. -Continue chest tube and monitor output. -CT surgery following. -Transfuse as needed. 5. Hypoalbuminemia. -Eventual nutritional optimization. 6. Hyponatremia -Correct with fluid management. 7. Hypertension. -Nutritional and medication optimization. 8. Hypothyroidism. -Replace hormone. 9. Hemopneumothorax, status post VATS, and currently has chest tube, followed by CT surgery. 10. Cervical spine injury, being maintained in brace by neurosurgery. Thank you, Problems: Subjective 24 Hr Interval Summary s/p Abdominal exploration 03/01. Continues to be intubated. Slowly improving leukocytosis. No f/c. No v. Bowel movement with flatus. Bloated. Tenderness. No cough. No sz. No rash, ho, visual or neuro changes. Exam/Review of Systems Vital Signs Vitals Vital Signs Date Time Temp Pulse Resp B/P Pulse Ox O2 Delivery O2 Flow Rate FiO2 03/03/16 22:59 77 24 100 35 03/03/16 17:00 113/54 Mechanical Ventilator 03/03/16 16:00 99.0 03/02/16 08:00 Intake and Output 03/02/16 03/02/16 03/03/16 15:00 23:00 07:00 Intake Total 30.456 ml 1278.426 ml 847.563 ml Output Total 100 ml 90 ml 40 ml Balance -69.544 ml 1188.426 ml 807.563 ml Exam Free Text/Dictation GENERAL: Ventilated, NAD HEENT: Pupils equal, reactive. No scleral icterus. Mucous membranes are somewhat dry. NECK: No crepitus. No JVD. PULMONARY: Minimally coarse. Left sided chest tube. ABDOMEN: Diffuse tenderness, not rigid, distended EXTREMITIES: Trace edema. VASCULAR: Capillary refill is 2 seconds. NEUROLOGIC: Ventilated and sedated SKIN: No rashes/jaundice. PSYCH: Ventilated Results Result Diagram: 03/03/16 0330 03/03/16 0330 CHRISTIANO JENNINGS MD Mar 03, 2016 23:24
[2016-03-04] VITALS (58 sets, daily range): BP systolic 106–201; BP diastolic 45–93; PULSE 71–93; RESP 14–28
[2016-03-04] MEDS: HYDROmorphONE 1 MG/ML SYG IV PRN (01:18)
[2016-03-04] MEDS: PROPOFOL 100 ML IV SCH ×3 (01:19→20:30)
[2016-03-04] MEDS: metroNIDAZOLE 500 MG/NS (PMX) 100 ML IVPB SCH ×4 (01:19→17:35)
[2016-03-04] MEDS: LEVOTHYROXINE 25 MCG TAB PO SCH (06:06)
[2016-03-04 07:26] LABS: ALBUMIN 1.6 g/dl (3.3-4.9)
[2016-03-04 07:29] LABS: ALBUMIN/GLOBULIN RATIO 0.64; BILIRUBIN,INDIRECT 0.1 mg/dl (0-1.1); BILIRUBIN,TOTAL 0.1 mg/dl (0.2-1.3); CREATININE 2.15 mg/dl (0.44-1.00); TOTAL PROTEIN 4.1 g/dl (6.1-8.1)
[2016-03-04 07:30] LABS: CALCIUM 6.9 mg/dl (8.4-10.2)
[2016-03-04 07:33] LABS: POTASSIUM 2.6 mmol/L (3.5-5.1)
[2016-03-04] MEDS: POTASSIUM CHLORIDE 20 MEQ POWDER FOR ORAL SOLN PO PRN (07:37)
[2016-03-04 08:18] LABS: HEMATOCRIT 32.1 % (37.0-47.0); HEMOGLOBIN 10.9 g/dl (12.0-16.0); MEAN CORPUSCULAR HEMOGLOBIN 31.6 pg (29.0-33.0); MEAN CORPUSCULAR HGB CONC 33.9 g/dl (32.0-37.0); MEAN CORPUSCULAR VOLUME 93.3 fl (82.0-101.0); MEAN PLATELET VOLUME 10.8 fl (7.4-10.4); PLATELET COUNT 141 10^3/UL (140-440); RED BLOOD COUNT 3.44 10^6/ul (4.20-5.40); RED CELL DISTRIBUTION WIDTH 18.4 % (11.5-14.5); UNCORRECTED WBC 20.2 10^3/ul (4.8-10.8); WHITE BLOOD COUNT 20.2 10^3/ul (4.8-10.8)
[2016-03-04 08:37] LABS: CONDITION 1; LH ANALYZER COMMENTS 1; SUSPECT 1
[2016-03-04] MEDS: SODIUM BICARBONATE (IV ADD) 100 MEQ in DEXTROSE 5%-0.45% NACL 900 ML IV SCH (08:41)
[2016-03-04] MEDS: NA BICARBONATE 8.4% 50 ML SYG IV SCH (08:55)
[2016-03-04] MEDS: NICOTINE (21 MG/24 HR) PATCH TRANSDERM SCH (08:56)
[2016-03-04] MEDS: HEPARIN 5,000 UNIT/0.5 ML SYG SC SCH ×2 (08:58→22:38)
[2016-03-04 09:26] LABS: LYMPHOCYTES # 0.6 10^3/ul (0.8-2.9); MONOCYTE # 2.2 10^3/ul (0.3-0.9)
--- NOTE | 2016-03-04 09:53 | PN ---
Date/Time of Note Date/Time of Note DATE: 03/04/16 TIME: 09:41 Assessment/Plan VTE Prophylaxis VTE Prophylaxis Intervention: heparin Lines/Catheters IV Catheter Type (from Nrs): Central Line Central line still needed: Yes (IV access ) Urinary Cath still in place: Yes Reason Cath still needed: other (indicate) (intuabted onv entilator ) Assessment/Plan Assessment/Plan 1. Sepsis with bademia, due to pancolitis, + UTI 2. Pancolitis, status post laparoscopic exploration of the abdomen and pelvis with a wedge resection biopsy. 3. Postoperative respiratory failure required ventilator care s/p Extubation 4. Coag-negative staph bacteremia on admission, continue with 5. cervical spine injury with pneumothorax from fracture of the ribs secondary to fall. The patient is status post Left video-assisted thoracic surgery, total pulmonary decortication on 02/25/16 with chest tube placement. 6. UTI with Urine cx growing Enterococcus Plan: Continue current IV abx Po vancomycin, ID following General surgery following Heparin for DVT prophylaxis Subjective 24 Hr Interval Summary Free Text/Dictation TPN has been ordered but not started yet,AFebrile, WBC improving , pt on FiO2 35 % Exam/Review of Systems Vital Signs Vitals Vital Signs Date Time Temp Pulse Resp B/P Pulse Ox O2 Delivery O2 Flow Rate FiO2 03/04/16 08:00 35 03/04/16 06:30 79 24 173/68 100 Mechanical Ventilator 03/04/16 04:00 98.8 03/02/16 08:00 Intake and Output 03/03/16 03/03/16 03/04/16 15:00 23:00 07:00 Intake Total 1480.435 ml 525.30 ml 545.551 ml Output Total 90 ml 160 ml 145 ml Balance 1390.435 ml 365.30 ml 400.551 ml Exam GENERAL: Fragile, intubated, sedated on Vent HEENT: + ET tube NECK: Supple CHEST: left chest tube, Bilateral Coarse BS+ HEART: S1, S2. ABDOMEN: Soft. The patient has dressings that are intact. EXTREMITIES:no edema, + cano catheter . Results Result Diagram: 03/04/16 0600 03/04/16 0600 Results 24 hrs Laboratory Tests Test 03/04/16 06:00 Alanine Aminotransferase (ALT/SGPT) 48 Albumin 1.6 L Albumin/Globulin Ratio 0.64 Alkaline Phosphatase 194 H Anion Gap 14 Aspartate Amino Transf (AST/SGOT) 55 H Band Neutrophils % 2.0 Basophils # Basophils % Blood Morphology Comment Blood Urea Nitrogen 78 H Calcium Level 6.9 L Carbon Dioxide Level 25 Chloride Level 110 Creatinine 2.15 H Differential Comment MANUAL DIFF Direct Bilirubin 0.00 Eosinophils # Eosinophils % Globulin 2.50 Glucose Level 103 Hematocrit 32.1 L Hemoglobin 10.9 L Indirect Bilirubin 0.1 Lymphocytes # 0.6 L Lymphocytes % 3.0 L Mean Corpuscular Hemoglobin 31.6 Mean Corpuscular Hemoglobin Concent 33.9 Mean Corpuscular Volume 93.3 Mean Platelet Volume 10.8 H Monocytes # 2.2 H Monocytes % 11.0 Neutrophils # 17.0 H Neutrophils % 84.0 H Nucleated Red Blood Cells # Nucleated Red Blood Cells % Platelet Count 141 Potassium Level 2.6 *L Red Blood Count 3.44 L Red Cell Distribution Width 18.4 H Sodium Level 146 H Total Bilirubin 0.1 L Total Protein 4.1 L White Blood Count 20.2 #H Medications Medications Current Medications Lorazepam (Ativan) 0.5 mg Q6H PRN IV ANXIETY Last administered on 02/26/16 02: 02; Admin Dose 0.5 MG; Start 02/24/16 at 02:00 Ondansetron HCl (Zofran Inj) 4 mg Q6H PRN IV NAUSEA AND/OR VOMITING Last administered on 03/01/16 13:17; Admin Dose 4 MG; Start 02/24/16 at 02:00 Nitroglycerin (Nitroglycerin (Sl Tab) 0.4 Mg) 1 tab Q5M PRN SL CHEST PAIN; Start 02/24/16 at 02:00 Hydralazine HCl (Apresoline) 10 mg Q6H PRN IV SBP > 160 Last administered on 05:19; Admin Dose 10 MG; Start 02/24/16 at 02:00 Labetalol HCl (Labetalol) 10 mg Q6 PRN IV ELEVATED BLOOD PRESSURE; Start at 23:00 Guaifenesin/ Dextromethorphan (Robitussin Dm Liquid Cup) 5 ml Q6 PRN PO COUGH Last administered on 02/27/16 18:12; Admin Dose 5 ML; Start 02/24/16 at 23:00 Nicotine (Nicoderm 21 Mg/ 24hr) 1 patch DAILY TRANSDERM Last administered on 08:56; Admin Dose 1 PATCH; Start 02/26/16 at 09:00 Levothyroxine Sodium 25 mcg 25 mcg DAILY@06 PO Last administered on 03/04/16 06:06; Admin Dose 25 MCG; Start 02/28/16 at 06:00 Metronidazole 100 ml @ 100 mls/hr Q6 IVPB Last administered on 03/04/16 06:06 ; Admin Dose 100 MLS/HR; Start 02/28/16 at 13:30 Propofol 100 ml @ 1.692 mls/ hr Q12H IV Last administered on 03/04/16 01:19; Admin Dose 5.059 MLS/HR; Start 03/01/16 at 20:30 Sodium Bicarbonate/ Dextrose/Sodium Chloride (Na Bicarb/D5-1/ 2ns) 1,000 ml @ 50 mls/hr Q20H IV Last administered on 03/04/16 08:41; Admin Dose 50 MLS/HR; Start 03/01/16 at 22:00 Hydromorphone HCl (Dilaudid) 0.5 mg Q3 PRN IV PAIN Last administered on 01:18; Admin Dose 0.5 MG; Start 03/02/16 at 17:00 Heparin Sodium (Porcine) 5000 unit 5,000 unit BID SC Last administered on 08:58; Admin Dose 5,000 UNIT; Start 03/02/16 at 21:30 Total Parenteral Nutrition (Tpn) 1,000 ml @ 50 mls/hr Q20H IV ; Start 03/03/16 at 20:30; Status HOWARD BARTHOLOMEW MD Mar 04, 2016 09:52
--- NOTE | 2016-03-04 13:08 | PN ---
DATE: 03/04/2016 PULMONARY FOLLOWUP SUBJECTIVE: Chart reviewed. Events noted. Patient remains orally intubated. Currently on 35% FIO 2, saturating 100%, and does not appear in acute distress. PHYSICAL EXAMINATION: VITAL SIGNS: Blood pressure 137/63, pulse 75, respirations 24, temperature afebrile. HEENT: Pupils are equal and react to light. Anicteric sclerae. Orally intubated. NECK: Supple. No JVD noted, no cervical adenopathy noted, no carotid bruits heard. LUNGS: Fair breath sounds bilaterally. CARDIOVASCULAR: S1, S2 normal. ABDOMEN: Soft, nontender. EXTREMITIES: No clubbing or cyanosis noted. Trace edema present. NEUROLOGIC: Currently sedated, on the vent. LABORATORY: Sodium 146, potassium 2.6, chloride 110, CO2 25, BUN 78, creatinine 2.15, glucose 103. WBC 20.2, hemoglobin 10.9, hematocrit 32.1, platelets 141. IMPRESSION: 1. Acute respiratory failure, hypoxemic. 2. Pancolitis. 3. Sepsis. 4. WBC count trending downwards. 5. Status post fall with left hemopneumothorax, currently with chest tube, status post VATS. 6. Acute on chronic renal failure. 7. Status post exploratory laparotomy. RECOMMENDATIONS: 1. Continue postop care. 2. Continue chest tube drainage. 3. Continue antibiotics per ID. 4. Gastrointestinal followup. 5. Will start weaning now. 6. Followup labs, x-ray and ABG in the a.m. 7. Above discussed with the staff in detail. 8. Above discussed with the family also at bedside. 9. Thirty-five minutes of critical care time was spent with the patient. Dictated By: RASHEL CHENG MD, MA/JOSUÉ Conf#: [id number] DID#: [id number]
[2016-03-04] MEDS ORDERED: FUROSEMIDE 20 MG INJ IV ONE (13:30)
--- NOTE | 2016-03-04 14:05 | QN ---
Documentation Comment Events noted & patient seen and examined. She is sedated but moving all extremities. Discussed with patient's adult son again the need for posterior cervical laminectomy and fusion when/if patient recovers sufficiently from acute illness/ resp failure/ etc. MIRLANDE BARKER MD Mar 04, 2016 14:05
--- NOTE | 2016-03-04 14:58 | PN ---
Date/Time of Note Date/Time of Note DATE: 03/04/16 TIME: 14:57 Assessment/Plan Lines/Catheters IV Catheter Type (from [facility]): Central Line Francois in Place (from [facility]): Yes Assessment/Plan Chief Complaint/Hosp Course 1. Abdominal pain, with CT diagnosis of pancolitis, with significant leukocytosis and bandemia. s/p Lap exploration and only small mid transverse with min mottling. WBC and bands improving slowly. Bowel function. -Aggressive antibiotic therapy -Judicious fluid management -Medical optimization 2. Sepsis, multifactorial (pancolitis ? ischemic, urinary tract infection, pulmonary infiltrates, bacteremia). -Aggressive antibiotic therapy. -Judicious fluid management. -Close monitoring. 3. Renal insufficiency secondary to sepsis. Improving Cr today -Continue judicious fluid management. -Avoid nephrotoxic agents as possible. 4. Anemia, with recent hemothorax requiring VATS decortication. -Continue chest tube and monitor output. -CT surgery following. -Transfuse as needed. 5. Hypoalbuminemia. -Eventual nutritional optimization. 6. Hyponatremia -Correct with fluid management. 7. Hypertension. -Nutritional and medication optimization. 8. Hypothyroidism. -Replace hormone. 9. Hemopneumothorax, status post VATS, and currently has chest tube, followed by CT surgery. 10. Cervical spine injury, being maintained in brace by neurosurgery. Thank you, Problems: Subjective 24 Hr Interval Summary s/p Abdominal exploration 03/01. Continues to be intubated. Slowly improving leukocytosis. No f/c. No v. Bowel movement with flatus. Bloated. Tenderness. No cough. No sz. No rash, ho, visual or neuro changes. Exam/Review of Systems Vital Signs Vitals Vital Signs Date Time Temp Pulse Resp B/P Pulse Ox O2 Delivery O2 Flow Rate FiO2 03/04/16 14:30 84 19 133/54 100 03/04/16 14:00 Mechanical Ventilator 03/04/16 13:10 35 03/04/16 12:00 98.6 03/02/16 08:00 Intake and Output 03/03/16 03/03/16 03/04/16 15:00 23:00 07:00 Intake Total 1480.435 ml 525.30 ml 545.551 ml Output Total 90 ml 160 ml 145 ml Balance 1390.435 ml 365.30 ml 400.551 ml Exam Free Text/Dictation GENERAL: Ventilated, NAD HEENT: Pupils equal, reactive. No scleral icterus. Mucous membranes are somewhat dry. NECK: No crepitus. No JVD. PULMONARY: Minimally coarse. Left sided chest tube. ABDOMEN: Diffuse tenderness, not rigid, distended EXTREMITIES: Trace edema. VASCULAR: Capillary refill is 2 seconds. NEUROLOGIC: Ventilated and sedated SKIN: No rashes/jaundice. PSYCH: Ventilated Results Result Diagram: 03/04/16 0600 03/04/16 0600 CHRISTIANO JENNINGS MD Mar 04, 2016 14:58
--- NOTE | 2016-03-04 15:37 | PN ---
Date/Time of Note Date/Time of Note DATE: 03/04/16 TIME: 15:36 Assessment/Plan Lines/Catheters IV Catheter Type (from Nrsg): Central Line Francois in Place (from Nrsg): Yes Assessment/Plan Chief Complaint/Hosp Course SP VATS Decortication CT [address] Sxn Problems: Subjective 24 Hr Interval Summary Constitutional: improved Pain Control: mild Exam/Review of Systems Vital Signs Vitals Vital Signs Date Time Temp Pulse Resp B/P Pulse Ox O2 Delivery O2 Flow Rate FiO2 03/04/16 14:30 84 19 133/54 100 03/04/16 14:00 Mechanical Ventilator 03/04/16 13:10 35 03/04/16 12:00 98.6 03/02/16 08:00 Intake and Output 03/03/16 03/03/16 03/04/16 15:00 23:00 07:00 Intake Total 1480.435 ml 525.30 ml 545.551 ml Output Total 90 ml 160 ml 145 ml Balance 1390.435 ml 365.30 ml 400.551 ml Exam Neck: non-tender, supple Respiratory: clear to auscultation, normal air movement Results Result Diagram: 03/04/16 0600 03/04/16 0600 MALESE AGUIRRE MD Mar 04, 2016 15:36
[2016-03-04] MEDS ORDERED: NA BICARBONATE 8.4% 50 ML SYG IV STA (17:00)
--- NOTE | 2016-03-04 19:17 | PN ---
DATE: 03/04/2016 SUBJECTIVE: No acute events overnight. The patient is lying comfortably in bed. No fevers. VITAL SIGNS: Temperature 97.7, pulse 80, respirations 16, blood pressure 106/46, saturation 100 on a vent. LABORATORY DATA: WBC today 20.2, H and H 10.9 and 32.1, platelets 141, neutrophils 84, bands 2, lym phs 3, monos 11. BUN 78, creatinine 2.15. ANTIMICROBIALS: The patient is on IV Flagyl. INDWELLINGS: Endotracheal tube, NG tube, Francois catheter, peripheral IV, and chest tube to indwellin g. PHYSICAL EXAMINATION: GENERAL: This is a fragile, elderly woman who is intubated, lying comfortably in bed. HEENT: Head atraumatic, normocephalic. Sclerae anicteric. Buccal mucosa dry. NECK: Supple, trachea midline. CHEST: Rise symmetrical. Breath sounds diminished to bases. HEART: S1, S2. ABDOMEN: Soft. Bowel tones present. EXTREMITIES: Without cyanosis. ASSESSMENT: 1. Sepsis with persistent leukocytosis, white blood cell slowly tracing down. 2. Pancolitis status post laparoscopic exploration with liver wedge resection and biopsy. 3. Postop respiratory failure. 4. C-spine injury with pneumothorax status post chest tube placement. 5. Coagulase-negative staph bacteremia consistent with contaminant. 6. 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 PLAN: The patient remains stable, tolerates weaning, white blood cell count tracing down. Her bloo d cultures were repeated on 02/25/2016 and had been negative. Intraoperative peritoneal cultures ne gative. Stool for C. diff negative as well. The patient is being followed by multiple consultants eventually will require cervical laminectomy with fusion as per neurosurgical note. Dictated By: PHOEBE BANDA ANTHROPOLOGY LECTURER for JUAN THOMAS/JOSUÉ Conf#: [id number] DID#: [id number]
--- NOTE | 2016-03-04 19:36 | CONS ---
Date/Time of Note Date/Time of Note DATE: 03/04/16 TIME: 19:35 Assessment/Plan Assessment/Plan Additional Assessment/Plan Additional Assessment/Plan 1. Pancolitis, c.difficile negative,no infarct on laparotomy exam 2. Fracture of the ribs. 3. Pneumothorax status post chest tube placement. 4. History of nicotine addiction. 5. Cervical spine injury. 6. History of fall. 7. Peripheral arterial disease. 8. Mild elevation of alkaline phosphatase, most probably related to alcoholic liver disease. 9. Anemia. 10. Chronic kidney disease, worsening. 11.s/p exploratory laparotomy,no bowel resection 12.respiratory failure PLAN: 1. At this point, she is on tigecycline and vancomycin and Flagyl. We will continue. 2. feeding as per surgeon 3. Monitor WBC count closely. 4. continue post op care,so far no stool was sent for c.difficile 5. Stool for Clostridium difficile toxin. 6. On antibiotic as per Infectious Disease. 7.nephro at 20 cc/hr if OK with Consultation Date/Type/Reason Admit Date/Time Feb 24, 2016 at 04:06 24 HR Interval Summary Constitutional: improved Exam/Review of Systems Vital Signs Vitals Vital Signs Date Time Temp Pulse Resp B/P Pulse Ox O2 Delivery O2 Flow Rate FiO2 03/04/16 18:30 85 23 132/64 100 03/04/16 18:00 Mechanical Ventilator 03/04/16 17:00 35 03/04/16 16:00 97.7 03/02/16 08:00 Intake and Output 03/03/16 03/03/16 03/04/16 15:00 23:00 07:00 Intake Total 1480.435 ml 525.30 ml 545.551 ml Output Total 90 ml 160 ml 145 ml Balance 1390.435 ml 365.30 ml 400.551 ml Exam Constitutional: alert, oriented, well developed Psych: nl mood/affect, no complaints Head: atraumatic, normocephalic Eyes: EOMI, PERRL, nl conjunctiva, nl lids, nl sclera ENMT: nl external ears & nose, nl lips & teeth, nl nasal mucosa & septum Neck: non-tender, supple Respiratory: clear to auscultation, normal air movement Cardiovascular: nl pulses, regular rate and rhythm Gastrointestinal: nl liver, spleen, non-tender, soft Musculoskeletal: nl extremities to inspection, nl gait and stance Extremities: normal pulses Neurological: LAUNDRY PRICING CLERK II-XII intact, nl mental status, nl speech, nl strength Skin: nl turgor, No rash or lesions Lymph: nl lymph nodes Results Result Diagram: 03/04/16 0600 03/04/16 0600 Results 24 hrs Laboratory Tests Test 03/04/16 06:00 Alanine Aminotransferase (ALT/SGPT) 48 Albumin 1.6 L Albumin/Globulin Ratio 0.64 Alkaline Phosphatase 194 H Anion Gap 14 Aspartate Amino Transf (AST/SGOT) 55 H Band Neutrophils % 2.0 Basophils # Basophils % Blood Morphology Comment Blood Urea Nitrogen 78 H Calcium Level 6.9 L Carbon Dioxide Level 25 Chloride Level 110 Creatinine 2.15 H Differential Comment MANUAL DIFF Direct Bilirubin 0.00 Eosinophils # Eosinophils % Globulin 2.50 Glucose Level 103 Hematocrit 32.1 L Hemoglobin 10.9 L Indirect Bilirubin 0.1 Lymphocytes # 0.6 L Lymphocytes % 3.0 L Mean Corpuscular Hemoglobin 31.6 Mean Corpuscular Hemoglobin Concent 33.9 Mean Corpuscular Volume 93.3 Mean Platelet Volume 10.8 H Monocytes # 2.2 H Monocytes % 11.0 Neutrophils # 17.0 H Neutrophils % 84.0 H Nucleated Red Blood Cells # Nucleated Red Blood Cells % Platelet Count 141 Potassium Level 2.6 *L Red Blood Count 3.44 L Red Cell Distribution Width 18.4 H Sodium Level 146 H Total Bilirubin 0.1 L Total Protein 4.1 L White Blood Count 20.2 #H Medications Medications Current Medications Lorazepam (Ativan) 0.5 mg Q6H PRN IV ANXIETY Last administered on 02/26/16 02: 02; Admin Dose 0.5 MG; Start 02/24/16 at 02:00 Ondansetron HCl (Zofran Inj) 4 mg Q6H PRN IV NAUSEA AND/OR VOMITING Last administered on 03/01/16 13:17; Admin Dose 4 MG; Start 02/24/16 at 02:00 Nitroglycerin (Nitroglycerin (Sl Tab) 0.4 Mg) 1 tab Q5M PRN SL CHEST PAIN; Start 02/24/16 at 02:00 Hydralazine HCl (Apresoline) 10 mg Q6H PRN IV SBP > 160 Last administered on 05:19; Admin Dose 10 MG; Start 02/24/16 at 02:00 Labetalol HCl (Labetalol) 10 mg Q6 PRN IV ELEVATED BLOOD PRESSURE; Start at 23:00 Guaifenesin/ Dextromethorphan (Robitussin Dm Liquid Cup) 5 ml Q6 PRN PO COUGH Last administered on 02/27/16 18:12; Admin Dose 5 ML; Start 02/24/16 at 23:00 Nicotine (Nicoderm 21 Mg/ 24hr) 1 patch DAILY TRANSDERM Last administered on 08:56; Admin Dose 1 PATCH; Start 02/26/16 at 09:00 Levothyroxine Sodium 25 mcg 25 mcg DAILY@06 PO Last administered on 03/04/16 06:06; Admin Dose 25 MCG; Start 02/28/16 at 06:00 Metronidazole 100 ml @ 100 mls/hr Q6 IVPB Last administered on 03/04/16 17:35 ; Admin Dose 100 MLS/HR; Start 02/28/16 at 13:30 Propofol 100 ml @ 1.692 mls/ hr Q12H IV Last administered on 03/04/16 14:22; Admin Dose 6.768 MLS/HR; Start 03/01/16 at 20:30 Sodium Bicarbonate/ Dextrose/Sodium Chloride (Na Bicarb/D5-1/ 2ns) 1,000 ml @ 50 mls/hr Q20H IV Last administered on 03/04/16 08:41; Admin Dose 50 MLS/HR; Start 03/01/16 at 22:00 Hydromorphone HCl (Dilaudid) 0.5 mg Q3 PRN IV PAIN Last administered on 01:18; Admin Dose 0.5 MG; Start 03/02/16 at 17:00 Heparin Sodium (Porcine) 5000 unit 5,000 unit BID SC Last administered on 08:58; Admin Dose 5,000 UNIT; Start 03/02/16 at 21:30 Total Parenteral Nutrition (Tpn) 1,000 ml @ 50 mls/hr Q20H IV ; Start 03/03/16 at 20:30; Status CHARISSA COLON MD Mar 04, 2016 19:36
[2016-03-04 22:14] LABS: Allen Test ACCEPTAB; Arterial COHb 0.3 % (0.0-3.0); Arterial Fraction of Oxyhgb 97.7 % (93.0-99.0); Arterial HCO3 26.4 mmol/L (22.0-26.0); Arterial MetHb 0.3 % (0.0-1.5); Arterial Total Hemglobin 11.9 g/dl (12.0-18.0); Blood Gas Mean Airway Pressure 12; Blood Gas PS 15; MODE VENT - SIMV
[2016-03-05] VITALS (69 sets, daily range): BP systolic 99–166; BP diastolic 50–70; PULSE 66–93; RESP 14–24
[2016-03-05] MEDS: PROPOFOL 100 ML IV SCH ×3 (01:17→20:19)
[2016-03-05] MEDS: metroNIDAZOLE 500 MG/NS (PMX) 100 ML IVPB SCH ×5 (01:28→23:17)
[2016-03-05] MEDS: SODIUM BICARBONATE (IV ADD) 100 MEQ in DEXTROSE 5%-0.45% NACL 900 ML IV SCH (04:37)
[2016-03-05 05:40] LABS: CREATININE 1.96 mg/dl (0.44-1.00)
[2016-03-05 05:41] LABS: CALCIUM 6.8 mg/dl (8.4-10.2)
[2016-03-05 05:44] LABS: INR 1.37; POTASSIUM 2.9 mmol/L (3.5-5.1); PROTIME 16.9 Sec (12.2-14.2); PT RATIO 1.3
[2016-03-05 05:45] LABS: PARTIAL THROMBOPLASTIN TIME 52.9 Sec (25.0-35.0)
[2016-03-05 05:53] LABS: HEMATOCRIT 32.3 % (37.0-47.0); HEMOGLOBIN 10.9 g/dl (12.0-16.0); MEAN CORPUSCULAR HEMOGLOBIN 31.6 pg (29.0-33.0); MEAN CORPUSCULAR HGB CONC 33.6 g/dl (32.0-37.0); MEAN CORPUSCULAR VOLUME 94.1 fl (82.0-101.0); MEAN PLATELET VOLUME 11.4 fl (7.4-10.4); PLATELET COUNT 137 10^3/UL (140-440); RED BLOOD COUNT 3.43 10^6/ul (4.20-5.40); RED CELL DISTRIBUTION WIDTH 19.3 % (11.5-14.5); UNCORRECTED WBC 14.6 10^3/ul (4.8-10.8); WHITE BLOOD COUNT 14.6 10^3/ul (4.8-10.8)
[2016-03-05] MEDS: LEVOTHYROXINE 25 MCG TAB PO SCH (06:03)
[2016-03-05] MEDS: POTASSIUM CHLORIDE 20 MEQ POWDER FOR ORAL SOLN PO PRN ×2 (06:03→16:14)
[2016-03-05 06:09] LABS: CONDITION 1; LH ANALYZER COMMENTS 1; SUSPECT 1
[2016-03-05 07:58] LABS: LYMPHOCYTES # 0.3 10^3/ul (0.8-2.9); MONOCYTE # 0.7 10^3/ul (0.3-0.9); NEUTROPHIL # 13.1 10^3/ul (1.6-7.5)
[2016-03-05 07:59] LABS: ANISOCYTOSIS 2+
[2016-03-05 08:30] LABS: AADO2 Arterial 105.3 mmHg (7.0-24.0); Arterial Base Excess 5.2 mmol/L (-3.0-3); Arterial COHb 0.3 % (0.0-3.0); Arterial Fraction of Oxyhgb 97.8 % (93.0-99.0); Arterial HCO3 24.9 mmol/L (22.0-26.0); Arterial MetHb 0.3 % (0.0-1.5); Arterial Total Hemglobin 13.6 g/dl (12.0-18.0); MODE VENT - AC
[2016-03-05] MEDS: NICOTINE (21 MG/24 HR) PATCH TRANSDERM SCH (09:07)
[2016-03-05] MEDS: HEPARIN 5,000 UNIT/0.5 ML SYG SC SCH ×2 (09:12→20:21)
--- NOTE | 2016-03-05 09:39 | RADRPT ---
PROCEDURE: XR Chest 1 View. CLINICAL INDICATION: Shortness of breath, pneumonia TECHNIQUE: AP view of the chest were obtained. COMPARISON: March 02, 2016 FINDINGS: The heart size is within normal limits. Calcified atherosclerosis is noted in the aorta. Endotrache al and nasogastric tubes are stable and appear in grossly appropriate location. Right-sided central line is unchanged. The lungs are hypoinflated. Atelectasis is seen at the lung bases. Left-sided chest tube has been removed. No pneumothorax as visualized. No consolidation is seen. Osseous stru ctures are intact. IMPRESSION: Calcified atherosclerosis in the aorta. Interval left chest tube removal. No visualized pneumothorax. Hypoinflated lungs with atelectasis at the lung bases. RPTAT: AA .Baldemar Dupree MD, Date Time Electronically viewed and signed by .Baldemar Dupree MD, on 03/05/2016 09:39 .P/
--- NOTE | 2016-03-05 09:48 | PN ---
Date/Time of Note Date/Time of Note DATE: 03/05/16 TIME: 09:43 Assessment/Plan VTE Prophylaxis VTE Prophylaxis Intervention: heparin Lines/Catheters IV Catheter Type (from Nrsg): Central Line Central line still needed: Yes (IV acess, IV abx ) Urinary Cath still in place: Yes Reason Cath still needed: other (indicate) (strict I/O) Assessment/Plan Assessment/Plan 1. Sepsis with bademia, due to pancolitis, + UTI 2. Pancolitis, status post laparoscopic exploration of the abdomen and pelvis with a wedge resection biopsy. 3. Postoperative respiratory failure required ventilator care s/p Extubation 4. Coag-negative staph bacteremia on admission, continue with 5. cervical spine injury with pneumothorax from fracture of the ribs secondary to fall. The patient is status post Left video-assisted thoracic surgery, total pulmonary decortication on 02/25/16 with chest tube placement. 6. UTI with Urine cx growing Enterococcus Plan: Continue current IV abx PH 7.63- HCO3 normal, stop Bicarbonate drip, Start IVF D51/2 NS with KCL 20mEQ at 70 cc/hr KCL 20mEQ IV KCL x 1 extra dose Continue Tube feeding as ordered Po vancomycin, ID following General surgery following Heparin for DVT prophylaxis Subjective 24 Hr Interval Summary Free Text/Dictation remains intubated, on NG tube, feeding started, GI and gen surg following, remains intubated Exam/Review of Systems Vital Signs Vitals Vital Signs Date Time Temp Pulse Resp B/P Pulse Ox O2 Delivery O2 Flow Rate FiO2 03/05/16 07:55 78 24 100 35 03/05/16 06:30 133/57 Mechanical Ventilator 03/05/16 04:00 97.9 03/02/16 08:00 Intake and Output 03/04/16 03/04/16 03/05/16 15:00 23:00 07:00 Intake Total 690.87 ml 564.024 ml 786.216 ml Output Total 350 ml 530 ml 75 ml Balance 340.87 ml 34.024 ml 711.216 ml Exam GENERAL: Fragile, intubated, sedated on Vent HEENT: + ET tube, NG tube NECK: Supple CHEST: left chest tube, Bilateral Coarse BS+ HEART: S1, S2. ABDOMEN: Soft. The patient has dressings that are intact. EXTREMITIES:no edema, + cano catheter . Results Result Diagram: 1/22/17 0415 03/05/16 0415 Results 24 hrs Laboratory Tests Test 03/04/16 22:00 03/05/16 04:15 03/05/16 07:00 Arterial Blood HCO3 26.4 H 24.9 Arterial Blood Base Excess 4.0 H 5.2 H Arterial Blood Oxygen Saturation 98.3 98.4 Kaiden Test ACCEPTAB N/A Arterial Blood Gas Puncture Site Right Radial A-Line Arterial Blood Carboxyhemoglobin 0.3 0.3 Arterial Blood Date Drawn 03/04/2016 10:01:17 PM 03/05/2016 8:05:53 AM Arterial Blood Methemoglobin 0.3 0.3 Arterial Blood pCO2 (Temp correct) 32.5 L 24.2 L Arterial Blood pH (Temp corrected) 7.528 H 7.631 *H Arterial Blood pO2 (Temp corrected) 129.8 H 116.1 H Blood Gas A-a O2 Differential 82.0 H 105.3 H Blood Gas Actual Respiration Rate 21 24 Blood Gas Inspiratory Pressure 30.0 Blood Gas Low PEEP Setting 5.0 5.0 Blood Gas Mean Airway Pressure 12 Blood Gas Modality VENT - SIMV VENT - AC Blood Gas Notified Time 03/04/2016 10:13:40 PM 03/05/2016 8:29:19 AM Blood Gas Notified Whom Lilian WALTON Blood Gas Pressure Support 15 Blood Gas Respiration Rate 8.0 24.0 Blood Gas Specimen Source Blood arterial Blood arterial Blood Gas Temperature 37.0 37.0 Blood Gas Tidal Volume 500.0 500.0 FiO2 35.0 35.0 Oxyhemoglobin Percent 97.7 97.8 Total Hemoglobin 11.9 L 13.6 Activated Partial Thromboplast Time 52.9 H Anion Gap 13 Anisocytosis 2+ Basophils # Pending Basophils % Pending Blood Morphology Comment Blood Urea Nitrogen 76 H Calcium Level 6.8 L Carbon Dioxide Level 26 Chloride Level 112 H Creatinine 1.96 H Eosinophils # Pending Eosinophils % Pending Glucose Level 101 Hematocrit 32.3 L Hemoglobin 10.9 L INR International Normalized Ratio 1.37 Large Platelets 1+ Lymphocytes # 0.3 L Lymphocytes % 2.0 L Mean Corpuscular Hemoglobin 31.6 Mean Corpuscular Hemoglobin Concent 33.6 Mean Corpuscular Volume 94.1 Mean Platelet Volume 11.4 H Monocytes # 0.7 Monocytes % 5.0 Neutrophils # 13.1 H Neutrophils % 90.0 H Nucleated Red Blood Cells # 0.0 Nucleated Red Blood Cells % 0.0 Platelet Count 137 L Potassium Level 2.9 *L Prothrombin Time 16.9 #H Prothrombin Time Ratio 1.3 Red Blood Count 3.43 L Red Cell Distribution Width 19.3 H Sodium Level 148 H White Blood Count 14.6 #H Blood Gas Critical Value Read Back H. LENI RN Medications Medications Current Medications Lorazepam (Ativan) 0.5 mg Q6H PRN IV ANXIETY Last administered on 02/26/16 02: 02; Admin Dose 0.5 MG; Start 02/24/16 at 02:00 Ondansetron HCl (Zofran Inj) 4 mg Q6H PRN IV NAUSEA AND/OR VOMITING Last administered on 03/01/16 13:17; Admin Dose 4 MG; Start 02/24/16 at 02:00 Nitroglycerin (Nitroglycerin (Sl Tab) 0.4 Mg) 1 tab Q5M PRN SL CHEST PAIN; Start 02/24/16 at 02:00 Hydralazine HCl (Apresoline) 10 mg Q6H PRN IV SBP > 160 Last administered on 05:19; Admin Dose 10 MG; Start 02/24/16 at 02:00 Labetalol HCl (Labetalol) 10 mg Q6 PRN IV ELEVATED BLOOD PRESSURE; Start at 23:00 Guaifenesin/ Dextromethorphan (Robitussin Dm Liquid Cup) 5 ml Q6 PRN PO COUGH Last administered on 02/27/16 18:12; Admin Dose 5 ML; Start 02/24/16 at 23:00 Nicotine (Nicoderm 21 Mg/ 24hr) 1 patch DAILY TRANSDERM Last administered on 09:07; Admin Dose 1 PATCH; Start 02/26/16 at 09:00 Levothyroxine Sodium 25 mcg 25 mcg DAILY@06 PO Last administered on 03/05/16 06:03; Admin Dose 25 MCG; Start 02/28/16 at 06:00 Metronidazole 100 ml @ 100 mls/hr Q6 IVPB Last administered on 03/05/16 06:03 ; Admin Dose 100 MLS/HR; Start 02/28/16 at 13:30 Propofol 100 ml @ 1.692 mls/ hr Q12H IV Last administered on 03/05/16 01:17; Admin Dose 10.152 MLS/HR; Start 03/01/16 at 20:30 Sodium Bicarbonate/ Dextrose/Sodium Chloride (Na Bicarb/D5-1/ 2ns) 1,000 ml @ 50 mls/hr Q20H IV Last administered on 03/05/16 04:37; Admin Dose 50 MLS/HR; Start 03/01/16 at 22:00 Hydromorphone HCl (Dilaudid) 0.5 mg Q3 PRN IV PAIN Last administered on 01:18; Admin Dose 0.5 MG; Start 03/02/16 at 17:00 Heparin Sodium (Porcine) (Heparin (5000 Units/0.5 ml)) 5,000 unit BID SC Last administered on 03/05/16 09:12; Admin Dose 5,000 UNIT; Start 03/02/16 at 21:30 HOWARD LEVY MD Mar 05, 2016 09:48
[2016-03-05] MEDS ORDERED: POTASSIUM CHLORIDE 20 MEQ in SOD CHLORIDE 0.9% 100 ML IVPB ONE (10:00)
[2016-03-05 10:59] LABS: BASOPHILS % 0.1 % (0.0-2.0); EOSINOPHILS % 0.2 % (0.0-7.0)
[2016-03-05] MEDS: D5W-0.45 NACL + KCL 20 MEQ 1,000 ML IV SCH ×2 (11:14→23:17)
--- NOTE | 2016-03-05 13:19 | CONS ---
Date/Time of Note Date/Time of Note DATE: 03/05/16 TIME: 13:16 Assessment/Plan Assessment/Plan Chief Complaint/Hosp Course SUBJECTIVE: NO ACUTE EVENTS, FAILED WEANING, NO FEVERS, COMFORTABLE ON VENT ANTIMICROBIALS: IV Flagyl. INDWELLINGS: Endotracheal tube, NG tube, Francois catheter, peripheral IV, and chest tube to indwelling. PHYSICAL EXAMINATION: GENERAL: This is a fragile, elderly woman who is intubated, lying comfortably in bed. HEENT: Head atraumatic, normocephalic. Sclerae anicteric. Buccal mucosa dry. NECK: Supple, trachea midline. CHEST: Rise symmetrical. Breath sounds diminished to bases. HEART: S1, S2. ABDOMEN: Soft. Bowel tones present. EXTREMITIES: Without cyanosis. ASSESSMENT: 1. Sepsis==> white blood cell slowly tracing down. 2. Pancolitis status post laparoscopic exploration with liver wedge resection and biopsy==> stool neg for C dif. 3. Postop respiratory failure. 4. C-spine injury with pneumothorax status post chest tube placement. 5. Coagulase-negative staph bacteremia consistent with contaminant. 6. 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 PLAN: The patient remains stable, wbc tracing down, no fevers, continue abx, weaning trials per pulmonary, surgical/GI/NS rec-s. [facility] staff Problems: Consultation Date/Type/Reason Admit Date/Time Feb 24, 2016 at 04:06 Initial Consult Date Type of Consultation: id Exam/Review of Systems Vital Signs Vitals Vital Signs Date Time Temp Pulse Resp B/P Pulse Ox O2 Delivery O2 Flow Rate FiO2 03/05/16 12:45 82 16 120/51 100 Mechanical Ventilator 03/05/16 12:00 35 03/05/16 04:00 97.9 03/02/16 08:00 Intake and Output 03/04/16 03/04/16 03/05/16 15:00 23:00 07:00 Intake Total 690.87 ml 564.024 ml 786.216 ml Output Total 350 ml 530 ml 75 ml Balance 340.87 ml 34.024 ml 711.216 ml Results Result Diagram: 03/05/16 0415 03/05/16 0415 Results 24 hrs Laboratory Tests Test 03/04/16 22:00 03/05/16 04:15 03/05/16 07:00 Arterial Blood HCO3 26.4 H 24.9 Arterial Blood Base Excess 4.0 H 5.2 H Arterial Blood Oxygen Saturation 98.3 98.4 Kaiden Test ACCEPTAB N/A Arterial Blood Gas Puncture Site Right Radial A-Line Arterial Blood Carboxyhemoglobin 0.3 0.3 Arterial Blood Date Drawn 03/04/2016 10:01:17 PM 03/05/2016 8:05:53 AM Arterial Blood Methemoglobin 0.3 0.3 Arterial Blood pCO2 (Temp correct) 32.5 L 24.2 L Arterial Blood pH (Temp corrected) 7.528 H 7.631 *H Arterial Blood pO2 (Temp corrected) 129.8 H 116.1 H Blood Gas A-a O2 Differential 82.0 H 105.3 H Blood Gas Actual Respiration Rate 21 24 Blood Gas Inspiratory Pressure 30.0 Blood Gas Low PEEP Setting 5.0 5.0 Blood Gas Mean Airway Pressure 12 Blood Gas Modality VENT - SIMV VENT - AC Blood Gas Notified Time 03/04/2016 10:13:40 PM 03/05/2016 8:29:19 AM Blood Gas Notified Karol WALTON Blood Gas Pressure Support 15 Blood Gas Respiration Rate 8.0 24.0 Blood Gas Specimen Source Blood arterial Blood arterial Blood Gas Temperature 37.0 37.0 Blood Gas Tidal Volume 500.0 500.0 FiO2 35.0 35.0 Oxyhemoglobin Percent 97.7 97.8 Total Hemoglobin 11.9 L 13.6 Activated Partial Thromboplast Time 52.9 H Anion Gap 13 Anisocytosis 2+ Basophils # 0.0 Basophils % 0.1 Blood Morphology Comment Blood Urea Nitrogen 76 H Calcium Level 6.8 L Carbon Dioxide Level 26 Chloride Level 112 H Creatinine 1.96 H Eosinophils # 0.0 Eosinophils % 0.2 Glucose Level 101 Hematocrit 32.3 L Hemoglobin 10.9 L INR International Normalized Ratio 1.37 Large Platelets 1+ Lymphocytes # 0.3 L Lymphocytes % 2.0 L Mean Corpuscular Hemoglobin 31.6 Mean Corpuscular Hemoglobin Concent 33.6 Mean Corpuscular Volume 94.1 Mean Platelet Volume 11.4 H Monocytes # 0.7 Monocytes % 5.0 Neutrophils # 13.1 H Neutrophils % 90.0 H Nucleated Red Blood Cells # 0.0 Nucleated Red Blood Cells % 0.0 Platelet Count 137 L Potassium Level 2.9 *L Prothrombin Time 16.9 #H Prothrombin Time Ratio 1.3 Red Blood Count 3.43 L Red Cell Distribution Width 19.3 H Sodium Level 148 H White Blood Count 14.6 #H Blood Gas Critical Value Read Back Low FARRAR RN Medications Medications Current Medications Lorazepam (Ativan) 0.5 mg Q6H PRN IV ANXIETY Last administered on 02/26/16 02: 02; Admin Dose 0.5 MG; Start 02/24/16 at 02:00 Ondansetron HCl (Zofran Inj) 4 mg Q6H PRN IV NAUSEA AND/OR VOMITING Last administered on 03/01/16 13:17; Admin Dose 4 MG; Start 02/24/16 at 02:00 Nitroglycerin (Nitroglycerin (Sl Tab) 0.4 Mg) 1 tab Q5M PRN SL CHEST PAIN; Start 02/24/16 at 02:00 Hydralazine HCl (Apresoline) 10 mg Q6H PRN IV SBP > 160 Last administered on 05:19; Admin Dose 10 MG; Start 02/24/16 at 02:00 Labetalol HCl (Labetalol) 10 mg Q6 PRN IV ELEVATED BLOOD PRESSURE; Start at 23:00 Guaifenesin/ Dextromethorphan (Robitussin Dm Liquid Cup) 5 ml Q6 PRN PO COUGH Last administered on 02/27/16 18:12; Admin Dose 5 ML; Start 02/24/16 at 23:00 Nicotine (Nicoderm 21 Mg/ 24hr) 1 patch DAILY TRANSDERM Last administered on 09:07; Admin Dose 1 PATCH; Start 02/26/16 at 09:00 Levothyroxine Sodium 25 mcg 25 mcg DAILY@06 PO Last administered on 03/05/16 06:03; Admin Dose 25 MCG; Start 02/28/16 at 06:00 Metronidazole 100 ml @ 100 mls/hr Q6 IVPB Last administered on 03/05/16 11:24 ; Admin Dose 100 MLS/HR; Start 02/28/16 at 13:30 Propofol (Diprivan) 100 ml @ 1.692 mls/ hr Q12H IV Last administered on 11:24; Admin Dose 10.152 MLS/HR; Start 03/01/16 at 20:30 Hydromorphone HCl (Dilaudid) 0.5 mg Q3 PRN IV PAIN Last administered on 01:18; Admin Dose 0.5 MG; Start 03/02/16 at 17:00 Heparin Sodium (Porcine) 5000 unit 5,000 unit BID SC Last administered on 09:12; Admin Dose 5,000 UNIT; Start 03/02/16 at 21:30 Potassium Chloride/Dextrose/ Sod Cl (D5-1/2ns + KCl 20 Meq) 1,000 ml @ 70 mls/ hr [id number] IV Last administered on 03/05/16 11:14; Admin Dose 70 MLS/HR; Start 03/05/16 at 10:00 PHOEBE BANDA NP Mar 05, 2016 13:19
--- NOTE | 2016-03-05 14:46 | CONS ---
Date/Time of Note Date/Time of Note DATE: 03/05/16 TIME: 14:45 Assessment/Plan Assessment/Plan Additional Assessment/Plan Additional Assessment/Plan 1. Pancolitis, c.difficile negative,no infarct on laparotomy exam 2. Fracture of the ribs. 3. Pneumothorax status post chest tube placement. 4. History of nicotine addiction. 5. Cervical spine injury. 6. History of fall. 7. Peripheral arterial disease. 8. Mild elevation of alkaline phosphatase, most probably related to alcoholic liver disease. 9. Anemia. 10. Chronic kidney disease, worsening. 11.s/p exploratory laparotomy,no bowel resection 12.respiratory failure 13. renal failure PLAN: 1. At this point, she is on tigecycline and vancomycin and Flagyl. We will continue. 2. feeding as per surgeon 3. Monitor WBC count closely. 4. continue post op care,so far no stool was sent for c.difficile 5. Stool for Clostridium difficile toxin. 6. On antibiotic as per Infectious Disease. 7.nephro at 20 cc/hr if OK with Consultation Date/Type/Reason Admit Date/Time Feb 24, 2016 at 04:06 Type of Consultation: id 24 HR Interval Summary Free Text/Dictation decreased urine output Exam/Review of Systems Vital Signs Vitals Vital Signs Date Time Temp Pulse Resp B/P Pulse Ox O2 Delivery O2 Flow Rate FiO2 03/05/16 13:36 81 14 100 35 03/05/16 12:45 120/51 Mechanical Ventilator 03/05/16 12:00 97.8 03/02/16 08:00 Intake and Output 03/04/16 03/04/16 03/05/16 15:00 23:00 07:00 Intake Total 690.87 ml 564.024 ml 806.216 ml Output Total 350 ml 530 ml 85 ml Balance 340.87 ml 34.024 ml 721.216 ml Exam Constitutional: alert, oriented, well developed Psych: nl mood/affect, no complaints Head: atraumatic, normocephalic Eyes: EOMI, PERRL, nl conjunctiva, nl lids, nl sclera ENMT: nl external ears & nose, nl lips & teeth, nl nasal mucosa & septum Neck: non-tender, supple Respiratory: clear to auscultation, normal air movement Cardiovascular: nl pulses, regular rate and rhythm Gastrointestinal: nl liver, spleen, non-tender, soft Musculoskeletal: nl extremities to inspection, nl gait and stance Extremities: normal pulses Neurological: DRILL BIT SHARPENER II-XII intact, nl mental status, nl speech, nl strength Skin: nl turgor, No rash or lesions Lymph: nl lymph nodes Results Result Diagram: 03/05/16 0415 03/05/16 0415 Results 24 hrs Laboratory Tests Test 03/04/16 22:00 03/05/16 04:15 03/05/16 07:00 Arterial Blood HCO3 26.4 H 24.9 Arterial Blood Base Excess 4.0 H 5.2 H Arterial Blood Oxygen Saturation 98.3 98.4 Kaiden Test ACCEPTAB N/A Arterial Blood Gas Puncture Site Right Radial A-Line Arterial Blood Carboxyhemoglobin 0.3 0.3 Arterial Blood Date Drawn 03/04/2016 10:01:17 PM 03/05/2016 8:05:53 AM Arterial Blood Methemoglobin 0.3 0.3 Arterial Blood pCO2 (Temp correct) 32.5 L 24.2 L Arterial Blood pH (Temp corrected) 7.528 H 7.631 *H Arterial Blood pO2 (Temp corrected) 129.8 H 116.1 H Blood Gas A-a O2 Differential 82.0 H 105.3 H Blood Gas Actual Respiration Rate 21 24 Blood Gas Inspiratory Pressure 30.0 Blood Gas Low PEEP Setting 5.0 5.0 Blood Gas Mean Airway Pressure 12 Blood Gas Modality VENT - SIMV VENT - AC Blood Gas Notified Time 03/04/2016 10:13:40 PM 03/05/2016 8:29:19 AM Blood Gas Notified Whom Lilian WALTON Blood Gas Pressure Support 15 Blood Gas Respiration Rate 8.0 24.0 Blood Gas Specimen Source Blood arterial Blood arterial Blood Gas Temperature 37.0 37.0 Blood Gas Tidal Volume 500.0 500.0 FiO2 35.0 35.0 Oxyhemoglobin Percent 97.7 97.8 Total Hemoglobin 11.9 L 13.6 Activated Partial Thromboplast Time 52.9 H Anion Gap 13 Anisocytosis 2+ Basophils # 0.0 Basophils % 0.1 Blood Morphology Comment Blood Urea Nitrogen 76 H Calcium Level 6.8 L Carbon Dioxide Level 26 Chloride Level 112 H Creatinine 1.96 H Eosinophils # 0.0 Eosinophils % 0.2 Glucose Level 101 Hematocrit 32.3 L Hemoglobin 10.9 L INR International Normalized Ratio 1.37 Large Platelets 1+ Lymphocytes # 0.3 L Lymphocytes % 2.0 L Mean Corpuscular Hemoglobin 31.6 Mean Corpuscular Hemoglobin Concent 33.6 Mean Corpuscular Volume 94.1 Mean Platelet Volume 11.4 H Monocytes # 0.7 Monocytes % 5.0 Neutrophils # 13.1 H Neutrophils % 90.0 H Nucleated Red Blood Cells # 0.0 Nucleated Red Blood Cells % 0.0 Platelet Count 137 L Potassium Level 2.9 *L Prothrombin Time 16.9 #H Prothrombin Time Ratio 1.3 Red Blood Count 3.43 L Red Cell Distribution Width 19.3 H Sodium Level 148 H White Blood Count 14.6 #H Blood Gas Critical Value Read Back HJocelynn FARRAR RN Medications Medications Current Medications Lorazepam (Ativan) 0.5 mg Q6H PRN IV ANXIETY Last administered on 02/26/16 02: 02; Admin Dose 0.5 MG; Start 02/24/16 at 02:00 Ondansetron HCl (Zofran Inj) 4 mg Q6H PRN IV NAUSEA AND/OR VOMITING Last administered on 03/01/16 13:17; Admin Dose 4 MG; Start 02/24/16 at 02:00 Nitroglycerin (Nitroglycerin (Sl Tab) 0.4 Mg) 1 tab Q5M PRN SL CHEST PAIN; Start 02/24/16 at 02:00 Hydralazine HCl (Apresoline) 10 mg Q6H PRN IV SBP > 160 Last administered on 05:19; Admin Dose 10 MG; Start 02/24/16 at 02:00 Labetalol HCl (Labetalol) 10 mg Q6 PRN IV ELEVATED BLOOD PRESSURE; Start at 23:00 Guaifenesin/ Dextromethorphan (Robitussin Dm Liquid Cup) 5 ml Q6 PRN PO COUGH Last administered on 02/27/16 18:12; Admin Dose 5 ML; Start 02/24/16 at 23:00 Nicotine (Nicoderm 21 Mg/ 24hr) 1 patch DAILY TRANSDERM Last administered on 09:07; Admin Dose 1 PATCH; Start 02/26/16 at 09:00 Levothyroxine Sodium 25 mcg 25 mcg DAILY@06 PO Last administered on 03/05/16 06:03; Admin Dose 25 MCG; Start 02/28/16 at 06:00 Metronidazole 100 ml @ 100 mls/hr Q6 IVPB Last administered on 03/05/16 11:24 ; Admin Dose 100 MLS/HR; Start 02/28/16 at 13:30 Propofol (Diprivan) 100 ml @ 1.692 mls/ hr Q12H IV Last administered on 11:24; Admin Dose 10.152 MLS/HR; Start 03/01/16 at 20:30 Hydromorphone HCl (Dilaudid) 0.5 mg Q3 PRN IV PAIN Last administered on 01:18; Admin Dose 0.5 MG; Start 03/02/16 at 17:00 Heparin Sodium (Porcine) 5000 unit 5,000 unit BID SC Last administered on 09:12; Admin Dose 5,000 UNIT; Start 03/02/16 at 21:30 Potassium Chloride/Dextrose/ Sod Cl (D5-1/2ns + KCl 20 Meq) 1,000 ml @ 70 mls/ hr [id number] IV Last administered on 03/05/16 11:14; Admin Dose 70 MLS/HR; Start 03/05/16 at 10:00 CHARISSA WILHELM MD Mar 05, 2016 14:46
[2016-03-05 15:36] LABS: POTASSIUM 3.4 mmol/L (3.5-5.1)
--- NOTE | 2016-03-05 17:33 | PN ---
DATE: 03/05/2016 PULMONARY FOLLOWUP SUBJECTIVE: Chart reviewed. Events noted. Chest tube was removed yesterday. Patient was placed o n SIMV mode yesterday which she tolerated for several hours, but then became short of breath and was switched back to assist control mode. At present, the patient is orally intubated and sedated and is saturating 100% and does not appear in acute distress. PHYSICAL EXAMINATION: VITAL SIGNS: Blood pressure 133/57, pulse 72, respirations 24, temperature afebrile. HEENT: Pupils are equal and react to light. Anicteric sclerae orally intubated. NECK: Supple, no JVD noted, no cervical adenopathy, no carotid bruits heard. LUNGS: Decreased breath sounds at the bases. CARDIOVASCULAR: S1, S2 normal. ABDOMEN: Soft, nontender. Positive bowel sounds. EXTREMITIES: No clubbing or cyanosis noted. 1+ pedal edema present. NEUROLOGIC: Sedated. LABS: Are: pH 7.63, pCO2 of 24, pO2 116. Sodium 148, potassium 2.9, chloride 112, CO2 of 26, BUN 76, creatinine 1.96, glucose 101. WBC 14.6, hemoglobin 10.9, hematocrit 32.3, platelets 137. Chest x-ray shows removal of left chest tube and basilar atelectasis. IMPRESSION: 1. Acute respiratory failure, hypoxemic. 2. Pancolitis. 3. Sepsis. 4. WBC count trending downwards. 5. Status post left hemopneumothorax, now status post VATS and now with removal of chest tube. 6. Acute on chronic renal failure, slightly improved. 7. Status post exploratory laparotomy. RECOMMENDATIONS 1. Continue ventilator support, decrease rate. 2. Continue antibiotics per ID. 3. GI and nephrology followup noted. 4. Followup labs, chest x-ray and ABG in a.m. 5. Above discussed with the staff and family at bedside. Dictated By: RASHEL CHENG MD, MA/JOSUÉ Conf#: [id number] DID#: [id number]
--- NOTE | 2016-03-05 23:03 | PN ---
Date/Time of Note Date/Time of Note DATE: 03/05/16 TIME: 22:57 Assessment/Plan Lines/Catheters IV Catheter Type (from [facility]): Central Line Francois in Place (from [facility]): Yes Assessment/Plan Chief Complaint/Hosp Course 1. Abdominal pain, with CT diagnosis of pancolitis, with significant leukocytosis and bandemia. s/p Lap exploration and only small mid transverse with min mottling. WBC and bands improving slowly. Bowel function. -Antibiotics per ID -Judicious fluid management -Medical oper NGT 2. Sepsis, multifactorial (pancolitis ? ischemic, urinary tract infection, pulmonary infiltrates, bacteremia). -Aggressive antibiotic therapy. -Judicious fluid management. -Close monitoring. 3. Renal insufficiency secondary to sepsis. Improving Cr today -Continue judicious fluid management. -Avoid nephrotoxic agents as possible. 4. Anemia, with recent hemothorax requiring VATS decortication. -Continue chest tube and monitor output. -CT surgery following. -Transfuse as needed. 5. Hypoalbuminemia. -Eventual nutritional optimization. 6. Hypernatremia -Correct with fluid management. 7. Hypertension. -Nutritional and medication optimization. 8. Hypothyroidism. -Replace hormone. 9. Hemopneumothorax, status post VATS. CT removed -followed by CT surgery. 10. Cervical spine injury, being maintained in brace by neurosurgery. 11. Hypokalemia -replete Thank you, Problems: Subjective 24 Hr Interval Summary Chest tube removed yesterday. Continues to be intubated. Improving leukocytosis. No f/c. No v. Bowel function. Bloated. No cough. No sz. No rash. Exam/Review of Systems Vital Signs Vitals Vital Signs Date Time Temp Pulse Resp B/P Pulse Ox O2 Delivery O2 Flow Rate FiO2 03/05/16 21:00 91 18 122/57 100 Mechanical Ventilator 03/05/16 20:30 97.7 03/05/16 20:00 35 03/02/16 08:00 Intake and Output 03/04/16 03/04/16 03/05/16 15:00 23:00 07:00 Intake Total 690.87 ml 564.024 ml 806.216 ml Output Total 350 ml 530 ml 85 ml Balance 340.87 ml 34.024 ml 721.216 ml Exam Free Text/Dictation GENERAL: Ventilated, NAD HEENT: Pupils equal, reactive. No scleral icterus. Mucous membranes are somewhat dry. ETT NECK: No crepitus. No JVD. PULMONARY: Minimally coarse. ABDOMEN: Diffuse tenderness, not rigid, distended EXTREMITIES: Trace edema. VASCULAR: Capillary refill is 2 seconds. NEUROLOGIC: Ventilated and sedated SKIN: No rashes/jaundice. PSYCH: Ventilated Results Result Diagram: 03/05/16 0415 03/05/16 1505 CHRISTIANO JENNINGS MD Mar 05, 2016 23:03
[2016-03-06] VITALS (66 sets, daily range): BP systolic 90–190; BP diastolic 50–89; PULSE 83–99; RESP 14–34
[2016-03-06] MEDS: PROPOFOL 100 ML IV SCH ×3 (04:11→17:05)
[2016-03-06 04:58] LABS: BASOPHILS % 0.2 % (0.0-2.0); EOSINOPHILS # 0.1 10^3/ul (0.0-0.5); EOSINOPHILS % 0.6 % (0.0-7.0); HEMATOCRIT 34.5 % (37.0-47.0); HEMOGLOBIN 11.2 g/dl (12.0-16.0); LYMPHOCYTES # 0.8 10^3/ul (0.8-2.9); MEAN CORPUSCULAR HEMOGLOBIN 30.9 pg (29.0-33.0); MEAN CORPUSCULAR HGB CONC 32.6 g/dl (32.0-37.0); MEAN PLATELET VOLUME 12.4 fl (7.4-10.4); MONOCYTE # 0.9 10^3/ul (0.3-0.9); MONOCYTES % 5.8 % (0.0-11.0); NEUTROPHIL # 13.8 10^3/ul (1.6-7.5); NEUTROPHILS % 88.4 % (39.0-77.0); PLATELET COUNT 140 10^3/UL (140-440); RED BLOOD COUNT 3.63 10^6/ul (4.20-5.40); UNCORRECTED WBC 15.6 10^3/ul (4.8-10.8); WHITE BLOOD COUNT 15.6 10^3/ul (4.8-10.8)
[2016-03-06 05:01] LABS: AADO2 Arterial 105.5 mmHg (7.0-24.0); Arterial Base Excess 0.9 mmol/L (-3.0-3); Arterial COHb 0.3 % (0.0-3.0); Arterial Fraction of Oxyhgb 96.9 % (93.0-99.0); Arterial HCO3 23.7 mmol/L (22.0-26.0); Arterial MetHb 0.4 % (0.0-1.5); Arterial Total Hemglobin 12.7 g/dl (12.0-18.0); MODE VENT - AC
[2016-03-06 05:14] LABS: CONDITION 1; LH ANALYZER COMMENTS 1; SUSPECT 1
[2016-03-06 05:24] LABS: INR 1.37; PROTIME 16.9 Sec (12.2-14.2); PT RATIO 1.3
[2016-03-06 05:25] LABS: PARTIAL THROMBOPLASTIN TIME 49.1 Sec (25.0-35.0)
[2016-03-06 05:29] LABS: ALBUMIN 1.4 g/dl (3.3-4.9)
[2016-03-06 05:32] LABS: CREATININE 1.69 mg/dl (0.44-1.00)
[2016-03-06 05:33] LABS: ALBUMIN/GLOBULIN RATIO 0.63; CALCIUM 6.8 mg/dl (8.4-10.2); TOTAL PROTEIN 3.6 g/dl (6.1-8.1)
[2016-03-06] MEDS: metroNIDAZOLE 500 MG/NS (PMX) 100 ML IVPB SCH ×4 (05:50→23:27)
[2016-03-06] MEDS: LEVOTHYROXINE 25 MCG TAB PO SCH (05:50)
--- NOTE | 2016-03-06 06:42 | RADRPT ---
PROCEDURE: XR Chest. CLINICAL INDICATION: Shortness of breath , intubated on ventilator TECHNIQUE: Portable single view of the chest COMPARISON: 03/05 FINDINGS: The endotracheal tube lies 4 mm from the blaire. This should be pulled back 2 cm. Lung volumes are reduced. Nasogastric tube and right central line remain in good position. Heart size remains with in normal limits. Aortic calcification. IMPRESSION: Endotracheal tube which should be pulled back 2 cm. Results were called to the patient's nurse, Rosa, at 03/06/2016 6:40:29 AM RPTAT: HLBE Physician [place] Date Time Electronically viewed and signed by Gayla Cho Physician on 03/06/2016 06:42 LE/
[2016-03-06] MEDS: HEPARIN 5,000 UNIT/0.5 ML SYG SC SCH ×2 (09:19→21:39)
[2016-03-06] MEDS: NICOTINE (21 MG/24 HR) PATCH TRANSDERM SCH (09:19)
--- NOTE | 2016-03-06 10:17 | CONS ---
Date/Time of Note Date/Time of Note DATE: 03/06/16 TIME: 10:09 Assessment/Plan Assessment/Plan Additional Assessment/Plan Admitted with hemopntx, s/p VATS, chest tube removed CXR from today showing scant RLL infiltrate improving WBC count improving renal function failed weaning trial yesterday mild respiratory alkalosis Will continue current antibiotics, supportive care. Stop sedation again, once off sedative affect, will give a CPAP trial again, failing that willresume on SIMV mode with decreased Vt @ 450 ml. add Zosyn to cover possible HCAP. discussed with patient's son at bedside and answered his questions. Consultation Date/Type/Reason Admit Date/Time Feb 24, 2016 at 04:06 Initial Consult Date Type of Consultation: pulmonary Reason for Consultation follow up on respiratory failure Exam/Review of Systems Vital Signs Vitals Vital Signs Date Time Temp Pulse Resp B/P Pulse Ox O2 Delivery O2 Flow Rate FiO2 03/06/16 09:35 87 18 100 30 03/06/16 09:15 140/64 Mechanical Ventilator 03/06/16 08:00 97.9 03/02/16 08:00 Intake and Output 03/05/16 03/05/16 03/06/16 15:00 23:00 07:00 Intake Total 759 ml 1595.70 ml 921.038 ml Output Total 75 ml 70 ml 70 ml Balance 684 ml 1525.70 ml 851.038 ml Exam Elderly, sedated, no distress noted. ROS unable to be obtained. HEENT: supple neck, no JVD, orally intubated, surgical pupils CHEST: CTA, S1 S2 audible, no murmurs, RRR. ABDOMEN: slightly distended, BS + EXTREMITIES: no edema, pulses 1 + COMMUNICATIONS LEAD: sedated Constitutional: alert, distress, frail, non-verbal, obese, oriented, other, well developed Results Result Diagram: 03/06/16 0400 03/06/16 0400 Results 24 hrs Laboratory Tests Test 03/05/16 15:05 03/06/16 04:00 03/06/16 05:00 Magnesium Level 2.0 Potassium Level 3.4 L 4.0 Activated Partial Thromboplast Time 49.1 H Alanine Aminotransferase (ALT/SGPT) 44 Albumin 1.4 L Albumin/Globulin Ratio 0.63 Alkaline Phosphatase 385 #H Anion Gap 14 Aspartate Amino Transf (AST/SGOT) 56 H Basophils # 0.0 Basophils % 0.2 Blood Morphology Comment Blood Urea Nitrogen 74 H Calcium Level 6.8 L Carbon Dioxide Level 24 Chloride Level 113 H Creatinine 1.69 H Direct Bilirubin 0.00 Eosinophils # 0.1 Eosinophils % 0.6 Globulin 2.20 Glucose Level 135 Hematocrit 34.5 L Hemoglobin 11.2 L INR International Normalized Ratio 1.37 Indirect Bilirubin 0.0 Lymphocytes # 0.8 Lymphocytes % 5.0 L Mean Corpuscular Hemoglobin 30.9 Mean Corpuscular Hemoglobin Concent 32.6 Mean Corpuscular Volume 95.0 Mean Platelet Volume 12.4 H Monocytes # 0.9 Monocytes % 5.8 Neutrophils # 13.8 H Neutrophils % 88.4 H Nucleated Red Blood Cells # 0.0 Nucleated Red Blood Cells % 0.0 Platelet Count 140 Prothrombin Time 16.9 H Prothrombin Time Ratio 1.3 Red Blood Count 3.63 L Red Cell Distribution Width 20.0 H Sodium Level 147 H Total Bilirubin 0.0 L Total Protein 3.6 L White Blood Count 15.6 H Arterial Blood HCO3 23.7 Arterial Blood Base Excess 0.9 Arterial Blood Oxygen Saturation 97.6 Kaiden Test N/A Arterial Blood Gas Puncture Site A-Line Arterial Blood Carboxyhemoglobin 0.3 Arterial Blood Date Drawn 03/06/2016 4:50:54 AM Arterial Blood Methemoglobin 0.4 Arterial Blood pCO2 (Temp correct) 31.9 L Arterial Blood pH (Temp corrected) 7.488 H Arterial Blood pO2 (Temp corrected) 107.0 H Blood Gas A-a O2 Differential 105.5 H Blood Gas Actual Respiration Rate 18 Blood Gas Low PEEP Setting 5.0 Blood Gas Modality VENT - AC Blood Gas Notified Time 03/06/2016 5:01:23 AM Blood Gas Notified Whom BF Blood Gas Respiration Rate 14.0 Blood Gas Specimen Source Blood arterial Blood Gas Temperature 37.0 Blood Gas Tidal Volume 500.0 FiO2 35.0 Oxyhemoglobin Percent 96.9 Total Hemoglobin 12.7 Medications Medications Current Medications Lorazepam (Ativan) 0.5 mg Q6H PRN IV ANXIETY Last administered on 02/26/16 02: 02; Admin Dose 0.5 MG; Start 02/24/16 at 02:00 Ondansetron HCl (Zofran Inj) 4 mg Q6H PRN IV NAUSEA AND/OR VOMITING Last administered on 03/01/16 13:17; Admin Dose 4 MG; Start 02/24/16 at 02:00 Nitroglycerin (Nitroglycerin (Sl Tab) 0.4 Mg) 1 tab Q5M PRN SL CHEST PAIN; Start 02/24/16 at 02:00 Hydralazine HCl (Apresoline) 10 mg Q6H PRN IV SBP > 160 Last administered on 05:19; Admin Dose 10 MG; Start 02/24/16 at 02:00 Labetalol HCl (Labetalol) 10 mg Q6 PRN IV ELEVATED BLOOD PRESSURE; Start at 23:00 Guaifenesin/ Dextromethorphan (Robitussin Dm Liquid Cup) 5 ml Q6 PRN PO COUGH Last administered on 02/27/16 18:12; Admin Dose 5 ML; Start 02/24/16 at 23:00 Nicotine (Nicoderm 21 Mg/ 24hr) 1 patch DAILY TRANSDERM Last administered on 09:19; Admin Dose 1 PATCH; Start 02/26/16 at 09:00 Levothyroxine Sodium 25 mcg 25 mcg DAILY@06 PO Last administered on 03/06/16 05:50; Admin Dose 25 MCG; Start 02/28/16 at 06:00 Metronidazole 100 ml @ 100 mls/hr Q6 IVPB Last administered on 03/06/16 05:50 ; Admin Dose 100 MLS/HR; Start 02/28/16 at 13:30 Propofol (Diprivan) 100 ml @ 1.692 mls/ hr Q12H IV Last administered on 04:11; Admin Dose 10.152 MLS/HR; Start 03/01/16 at 20:30 Hydromorphone HCl (Dilaudid) 0.5 mg Q3 PRN IV PAIN Last administered on 01:18; Admin Dose 0.5 MG; Start 03/02/16 at 17:00 Heparin Sodium (Porcine) 5000 unit 5,000 unit BID SC Last administered on 09:19; Admin Dose 5,000 UNIT; Start 03/02/16 at 21:30 Potassium Chloride/Dextrose/ Sod Cl (D5-1/2ns + KCl 20 Meq) 1,000 ml @ 70 mls/ hr [id number] IV Last administered on 03/05/16t 23:17; Admin Dose 70 MLS/HR; Start 03/05/16 at 10:00 GAIL SPENCER Mar 06, 2016 10:17
[2016-03-06] MEDS ORDERED: FUROSEMIDE 40 MG INJ IV ONE (11:00)
--- NOTE | 2016-03-06 12:21 | RADRPT ---
PROCEDURE: XR Abdomen. CLINICAL INDICATION: Distention of Abdomen TECHNIQUE: AP abdomen x-ray. COMPARISON: None. FINDINGS: The bowel gas pattern is normal. There is no evidence of obstruction. There are no abnormal calcific ations overlying the urinary tracts. The osseus structures are unremarkable. IMPRESSION: Unremarkable abdomen radiograph. RPTAT:AAJJ Physician Gladys Date Time Electronically viewed and signed by Physician Gladys on 03/06/2016 12:20 MARY/
--- NOTE | 2016-03-06 12:34 | PN ---
Date/Time of Note Date/Time of Note DATE: 03/06/16 TIME: 12:34 Assessment/Plan Lines/Catheters IV Catheter Type (from Nrs): Mid Line Francois in Place (from Nrs): Yes Assessment/Plan Chief Complaint/Hosp Course 1. Abdominal pain, with CT diagnosis of pancolitis, with significant leukocytosis and bandemia. s/p Lap exploration and only small mid transverse with min mottling. WBC. Bowel function. -Antibiotics per ID -Judicious fluid management -Medical oper NGT 2. Sepsis, multifactorial (pancolitis ? ischemic, urinary tract infection, pulmonary infiltrates, bacteremia). -Aggressive antibiotic therapy. -Judicious fluid management. -Close monitoring. 3. Renal insufficiency secondary to sepsis. Improving Cr today -Continue judicious fluid management. -Avoid nephrotoxic agents as possible. 4. Anemia, with recent hemothorax requiring VATS decortication. -Continue chest tube and monitor output. -CT surgery following. -Transfuse as needed. 5. Hypoalbuminemia. -Eventual nutritional optimization. 6. Hypernatremia -Correct with fluid management. 7. Hypertension. -Nutritional and medication optimization. 8. Hypothyroidism. -Replace hormone. 9. Hemopneumothorax, status post VATS. CT removed -followed by CT surgery. 10. Cervical spine injury, being maintained in brace by neurosurgery. 11. Hypokalemia -replete Thank you, Problems: Subjective 24 Hr Interval Summary Continues to be intubated. Leukocytosis. No f/c. No v. Bowel function. Bloated. No cough. No sz. No rash. Exam/Review of Systems Vital Signs Vitals Vital Signs Date Time Temp Pulse Resp B/P Pulse Ox O2 Delivery O2 Flow Rate FiO2 03/06/16 11:00 92 32 100 30 03/06/16 09:15 140/64 Mechanical Ventilator 03/06/16 08:00 97.9 03/02/16 08:00 Intake and Output 03/05/16 03/05/16 03/06/16 15:00 23:00 07:00 Intake Total 759 ml 1595.70 ml 921.038 ml Output Total 75 ml 70 ml 70 ml Balance 684 ml 1525.70 ml 851.038 ml Exam Free Text/Dictation GENERAL: Ventilated, NAD HEENT: Pupils equal, reactive. No scleral icterus. Mucous membranes are somewhat dry. ETT NECK: No crepitus. No JVD. PULMONARY: Minimally coarse. ABDOMEN: Diffuse tenderness, not rigid, distended EXTREMITIES: Trace edema. VASCULAR: Capillary refill is 2 seconds. NEUROLOGIC: Ventilated and sedated SKIN: No rashes/jaundice. PSYCH: Ventilated Results Result Diagram: 03/06/1639903/06/16399 CHRISTIANO JENNINGS MD Mar 06, 2016 12:34
[2016-03-06] MEDS ORDERED: PIPER-TAZO 3.375 GM IV (PMX) 100 ML IVPB SCH (14:00)
[2016-03-06] MEDS: D5W-0.45 NACL + KCL 20 MEQ 1,000 ML IV SCH (14:14)
--- NOTE | 2016-03-06 14:51 | CONS ---
Date/Time of Note Date/Time of Note DATE: 03/06/16 TIME: 14:50 Assessment/Plan Assessment/Plan Additional Assessment/Plan Additional Assessment/Plan 1. Pancolitis, c.difficile negative,no infarct on laparotomy exam 2. Fracture of the ribs. 3. Pneumothorax status post chest tube placement. 4. History of nicotine addiction. 5. Cervical spine injury. 6. History of fall. 7. Peripheral arterial disease. 8. Mild elevation of alkaline phosphatase, most probably related to alcoholic liver disease. 9. Anemia. 10. Chronic kidney disease, worsening. 11.s/p exploratory laparotomy,no bowel resection 12.respiratory failure 13. renal failure PLAN: 1. At this point, she is on tigecycline and vancomycin and Flagyl. We will continue. 2. feeding as per surgeon 3. Monitor WBC count closely. 4. continue post op care,so far no stool was sent for c.difficile 5. Stool for Clostridium difficile toxin. 6. On antibiotic as per Infectious Disease. 7.nephro at 35 cc/hr. Consultation Date/Type/Reason Admit Date/Time Feb 24, 2016 at 04:06 Type of Consultation: pulmonary 24 HR Interval Summary Free Text/Dictation diarrhea Constitutional: improved Exam/Review of Systems Vital Signs Vitals Vital Signs Date Time Temp Pulse Resp B/P Pulse Ox O2 Delivery O2 Flow Rate FiO2 03/06/16 13:45 88 28 142/62 100 Mechanical Ventilator 03/06/16 12:00 98.6 03/06/16 12:00 30 03/02/16 08:00 Intake and Output 03/05/16 03/05/16 03/06/16 15:00 23:00 07:00 Intake Total 759 ml 1595.70 ml 921.038 ml Output Total 75 ml 70 ml 70 ml Balance 684 ml 1525.70 ml 851.038 ml Exam Constitutional: alert, oriented, well developed Psych: nl mood/affect, no complaints Head: atraumatic, normocephalic Eyes: EOMI, PERRL, nl conjunctiva, nl lids, nl sclera ENMT: nl external ears & nose, nl lips & teeth, nl nasal mucosa & septum Neck: non-tender, supple Respiratory: clear to auscultation, normal air movement Cardiovascular: nl pulses, regular rate and rhythm Gastrointestinal: nl liver, spleen, non-tender, soft Musculoskeletal: nl extremities to inspection, nl gait and stance Extremities: normal pulses Neurological: MANA[facility] OF [facility] II-XII intact, nl mental status, nl speech, nl strength Skin: nl turgor, No rash or lesions Lymph: nl lymph nodes Results Result Diagram: 03/06/160 03/06/16 0400 Results 24 hrs Laboratory Tests Test 03/05/16 15:05 03/06/16 04:00 03/06/16 05:00 Magnesium Level 2.0 Potassium Level 3.4 L 4.0 Activated Partial Thromboplast Time 49.1 H Alanine Aminotransferase (ALT/SGPT) 44 Albumin 1.4 L Albumin/Globulin Ratio 0.63 Alkaline Phosphatase 385 #H Anion Gap 14 Aspartate Amino Transf (AST/SGOT) 56 H Basophils # 0.0 Basophils % 0.2 Blood Morphology Comment Blood Urea Nitrogen 74 H Calcium Level 6.8 L Carbon Dioxide Level 24 Chloride Level 113 H Creatinine 1.69 H Direct Bilirubin 0.00 Eosinophils # 0.1 Eosinophils % 0.6 Globulin 2.20 Glucose Level 135 Hematocrit 34.5 L Hemoglobin 11.2 L INR International Normalized Ratio 1.37 Indirect Bilirubin 0.0 Lymphocytes # 0.8 Lymphocytes % 5.0 L Mean Corpuscular Hemoglobin 30.9 Mean Corpuscular Hemoglobin Concent 32.6 Mean Corpuscular Volume 95.0 Mean Platelet Volume 12.4 H Monocytes # 0.9 Monocytes % 5.8 Neutrophils # 13.8 H Neutrophils % 88.4 H Nucleated Red Blood Cells # 0.0 Nucleated Red Blood Cells % 0.0 Platelet Count 140 Prothrombin Time 16.9 H Prothrombin Time Ratio 1.3 Red Blood Count 3.63 L Red Cell Distribution Width 20.0 H Sodium Level 147 H Total Bilirubin 0.0 L Total Protein 3.6 L White Blood Count 15.6 H Arterial Blood HCO3 23.7 Arterial Blood Base Excess 0.9 Arterial Blood Oxygen Saturation 97.6 Kaiden Test N/A Arterial Blood Gas Puncture Site A-Line Arterial Blood Carboxyhemoglobin 0.3 Arterial Blood Date Drawn 03/06/2016 4:50:54 AM Arterial Blood Methemoglobin 0.4 Arterial Blood pCO2 (Temp correct) 31.9 L Arterial Blood pH (Temp corrected) 7.488 H Arterial Blood pO2 (Temp corrected) 107.0 H Blood Gas A-a O2 Differential 105.5 H Blood Gas Actual Respiration Rate 18 Blood Gas Low PEEP Setting 5.0 Blood Gas Modality VENT - AC Blood Gas Notified Time 03/06/2016 5:01:23 AM Blood Gas Notified Whom BF Blood Gas Respiration Rate 14.0 Blood Gas Specimen Source Blood arterial Blood Gas Temperature 37.0 Blood Gas Tidal Volume 500.0 FiO2 35.0 Oxyhemoglobin Percent 96.9 Total Hemoglobin 12.7 Medications Medications Current Medications Lorazepam (Ativan) 0.5 mg Q6H PRN IV ANXIETY Last administered on 02/26/16 02: 02; Admin Dose 0.5 MG; Start 02/24/16 at 02:00 Ondansetron HCl (Zofran Inj) 4 mg Q6H PRN IV NAUSEA AND/OR VOMITING Last administered on 03/01/16 13:17; Admin Dose 4 MG; Start 02/24/16 at 02:00 Nitroglycerin (Nitroglycerin (Sl Tab) 0.4 Mg) 1 tab Q5M PRN SL CHEST PAIN; Start 02/24/16 at 02:00 Hydralazine HCl (Apresoline) 10 mg Q6H PRN IV SBP > 160 Last administered on 05:19; Admin Dose 10 MG; Start 02/24/16 at 02:00 Labetalol HCl (Labetalol) 10 mg Q6 PRN IV ELEVATED BLOOD PRESSURE; Start at 23:00 Guaifenesin/ Dextromethorphan (Robitussin Dm Liquid Cup) 5 ml Q6 PRN PO COUGH Last administered on 02/27/16 18:12; Admin Dose 5 ML; Start 02/24/16 at 23:00 Nicotine (Nicoderm 21 Mg/ 24hr) 1 patch DAILY TRANSDERM Last administered on 09:19; Admin Dose 1 PATCH; Start 02/26/16 at 09:00 Levothyroxine Sodium 25 mcg 25 mcg DAILY@06 PO Last administered on 03/06/16 05:50; Admin Dose 25 MCG; Start 02/28/16 at 06:00 Metronidazole 100 ml @ 100 mls/hr Q6 IVPB Last administered on 03/06/16 11:12 ; Admin Dose 100 MLS/HR; Start 02/28/16 at 13:30 Propofol (Diprivan) 100 ml @ 1.692 mls/ hr Q12H IV Last administered on 11:01; Admin Dose 6.768 MLS/HR; Start 03/01/16 at 20:30 Hydromorphone HCl (Dilaudid) 0.5 mg Q3 PRN IV PAIN Last administered on 01:18; Admin Dose 0.5 MG; Start 03/02/16 at 17:00 Heparin Sodium (Porcine) 5000 unit 5,000 unit BID SC Last administered on 09:19; Admin Dose 5,000 UNIT; Start 03/02/16 at 21:30 Potassium Chloride/Dextrose/ Sod Cl 1,000 ml @ 70 mls/hr [id number] IV Last administered on 03/06/16 14:14; Admin Dose 70 MLS/HR; Start 03/05/16 at 10:00 Piperacillin Sod/ Tazobactam Sod (Zosyn 3.375gm/ 100 ml (Pmx)) 100 ml @ 200 mls /hr Q8 IVPB Last administered on 03/06/16 14:13; Admin Dose 200 MLS/HR; Start 03/06/16 at 14:00; Stop 03/11/16 at 13:59 Furosemide (Lasix) 40 mg ONCE ONCE IV ; Start 03/07/16 at 06:00; Stop 03/07/16 at 06:01 CHARISSA WILHELM MD Mar 06, 2016 14:51
--- NOTE | 2016-03-06 16:01 | PN ---
Date/Time of Note Date/Time of Note DATE: 03/06/16 TIME: 16:00 Assessment/Plan VTE Prophylaxis VTE Prophylaxis Intervention: other Lines/Catheters IV Catheter Type (from Nrsg): Central Line Central line still needed: Yes Urinary Cath still in place: Yes Reason Cath still needed: other (indicate) Assessment/Plan Chief Complaint/Hosp Course 1. Left video-assisted thoracic surgery, total pulmonary decortication. 2.s/p Control of chest bleeding. 3. sepsis better 4 s/p fall 5 lung infilterate better 6 hyponatremia better 7 djd 8 ddd 9 hx htn 10 positive gold test 11 UTI 12HYPOTHYROIDISM 13 collites better 14 markos 15 atn better 16 metabolic acidosis better plan per dr howe and neuro surgery labs id dr marguerite velazquez and dr black to f/u pain meds per pulmonary weaning Problems: Subjective 24 Hr Interval Summary Subjective hx not possible: other (on vent) Exam/Review of Systems Vital Signs Vitals Vital Signs Date Time Temp Pulse Resp B/P Pulse Ox O2 Delivery O2 Flow Rate FiO2 03/06/16 15:00 95 26 109/65 100 Mechanical Ventilator 03/06/16 12:00 98.6 03/06/16 12:00 30 03/02/16 08:00 Intake and Output 03/05/16 03/05/16 03/06/16 15:00 23:00 07:00 Intake Total 759 ml 1595.70 ml 931.038 ml Output Total 75 ml 70 ml 80 ml Balance 684 ml 1525.70 ml 851.038 ml Exam Neck: supple Respiratory: clear to auscultation Cardiovascular: regular rate and rhythm Gastrointestinal: bowel sounds (+), non-tender, soft Musculoskeletal: nl extremities to inspection Extremities: normal pulses Results Result Diagram: 03/06/16 0400 03/06/16 0400 Results 24 hrs Laboratory Tests Test 03/06/16 04:00 03/06/16 05:00 Activated Partial Thromboplast Time 49.1 H Alanine Aminotransferase (ALT/SGPT) 44 Albumin 1.4 L Albumin/Globulin Ratio 0.63 Alkaline Phosphatase 385 #H Anion Gap 14 Aspartate Amino Transf (AST/SGOT) 56 H Basophils # 0.0 Basophils % 0.2 Blood Morphology Comment Blood Urea Nitrogen 74 H Calcium Level 6.8 L Carbon Dioxide Level 24 Chloride Level 113 H Creatinine 1.69 H Direct Bilirubin 0.00 Eosinophils # 0.1 Eosinophils % 0.6 Globulin 2.20 Glucose Level 135 Hematocrit 34.5 L Hemoglobin 11.2 L INR International Normalized Ratio 1.37 Indirect Bilirubin 0.0 Lymphocytes # 0.8 Lymphocytes % 5.0 L Mean Corpuscular Hemoglobin 30.9 Mean Corpuscular Hemoglobin Concent 32.6 Mean Corpuscular Volume 95.0 Mean Platelet Volume 12.4 H Monocytes # 0.9 Monocytes % 5.8 Neutrophils # 13.8 H Neutrophils % 88.4 H Nucleated Red Blood Cells # 0.0 Nucleated Red Blood Cells % 0.0 Platelet Count 140 Potassium Level 4.0 Prothrombin Time 16.9 H Prothrombin Time Ratio 1.3 Red Blood Count 3.63 L Red Cell Distribution Width 20.0 H Sodium Level 147 H Total Bilirubin 0.0 L Total Protein 3.6 L White Blood Count 15.6 H Arterial Blood HCO3 23.7 Arterial Blood Base Excess 0.9 Arterial Blood Oxygen Saturation 97.6 Kaiden Test N/A Arterial Blood Gas Puncture Site A-Line Arterial Blood Carboxyhemoglobin 0.3 Arterial Blood Date Drawn 03/06/2016 4:50:54 AM Arterial Blood Methemoglobin 0.4 Arterial Blood pCO2 (Temp correct) 31.9 L Arterial Blood pH (Temp corrected) 7.488 H Arterial Blood pO2 (Temp corrected) 107.0 H Blood Gas A-a O2 Differential 105.5 H Blood Gas Actual Respiration Rate 18 Blood Gas Low PEEP Setting 5.0 Blood Gas Modality VENT - AC Blood Gas Notified Time 03/06/2016 5:01:23 AM Blood Gas Notified Whom BF Blood Gas Respiration Rate 14.0 Blood Gas Specimen Source Blood arterial Blood Gas Temperature 37.0 Blood Gas Tidal Volume 500.0 FiO2 35.0 Oxyhemoglobin Percent 96.9 Total Hemoglobin 12.7 Medications Medications Current Medications Lorazepam (Ativan) 0.5 mg Q6H PRN IV ANXIETY Last administered on 02/26/16 02: 02; Admin Dose 0.5 MG; Start 02/24/16 at 02:00 Ondansetron HCl (Zofran Inj) 4 mg Q6H PRN IV NAUSEA AND/OR VOMITING Last administered on 03/01/16 13:17; Admin Dose 4 MG; Start 02/24/16 at 02:00 Nitroglycerin (Nitroglycerin (Sl Tab) 0.4 Mg) 1 tab Q5M PRN SL CHEST PAIN; Start 02/24/16 at 02:00 Hydralazine HCl (Apresoline) 10 mg Q6H PRN IV SBP > 160 Last administered on 05:19; Admin Dose 10 MG; Start 02/24/16 at 02:00 Labetalol HCl (Labetalol) 10 mg Q6 PRN IV ELEVATED BLOOD PRESSURE; Start at 23:00 Guaifenesin/ Dextromethorphan (Robitussin Dm Liquid Cup) 5 ml Q6 PRN PO COUGH Last administered on 02/27/16 18:12; Admin Dose 5 ML; Start 02/24/16 at 23:00 Nicotine (Nicoderm 21 Mg/ 24hr) 1 patch DAILY TRANSDERM Last administered on 09:19; Admin Dose 1 PATCH; Start 02/26/16 at 09:00 Levothyroxine Sodium 25 mcg 25 mcg DAILY@06 PO Last administered on 03/06/16 05:50; Admin Dose 25 MCG; Start 02/28/16 at 06:00 Metronidazole 100 ml @ 100 mls/hr Q6 IVPB Last administered on 03/06/16 11:12 ; Admin Dose 100 MLS/HR; Start 02/28/16 at 13:30 Propofol (Diprivan) 100 ml @ 1.692 mls/ hr Q12H IV Last administered on 11:01; Admin Dose 6.768 MLS/HR; Start 03/01/16 at 20:30 Hydromorphone HCl (Dilaudid) 0.5 mg Q3 PRN IV PAIN Last administered on 01:18; Admin Dose 0.5 MG; Start 03/02/16 at 17:00 Heparin Sodium (Porcine) 5000 unit 5,000 unit BID SC Last administered on 09:19; Admin Dose 5,000 UNIT; Start 03/02/16 at 21:30 Potassium Chloride/Dextrose/ Sod Cl (D5-1/2ns + KCl 20 Meq) 1,000 ml @ 70 mls/ hr [id number] IV Last administered on 03/06/16 14:14; Admin Dose 70 MLS/HR; Start 03/05/16 at 10:00 Furosemide 40 mg 40 mg ONCE ONCE IV ; Start 03/07/16 at 06:00; Stop 03/07/16 at 06:01 Meropenem/Sodium Chloride (Merrem/NS) 100 ml @ 200 mls/hr Q12 IVPB ; Start at 21:00 Vancomycin HCl (Vancomycin Oral Syringe) 250 mg Q6 PO ; Start 03/06/16 at 18:00 REMINGTON ZELAYA MD Mar 06, 2016 16:01
[2016-03-06] MEDS: VANCOMYCIN HCL 250 MG/5ML POSYG PO SCH ×2 (17:43→23:35)
--- NOTE | 2016-03-06 17:44 | PN ---
DATE: SUBJECTIVE: The patient is lying comfortably in bed, afebrile. Sedated on vent. VITAL SIGNS: Temperature 98.6, pulse 88, respirations 20, blood pressure 142/62, saturation 100 on vent. LABORATORY DATA: WBC 15.6, H and H 11.2 and 34.5, platelets 140, neutrophils 88.4. BUN 74, creatin ine 1.69. INDWELLINGS: Endotracheal tube, NG tube, Francois catheter, A-line, right IJ triple-lumen catheter. ANTIMICROBIALS: 1. Flagyl IV. 2. Zosyn started today by package reinspector for concern of pneumonia. PHYSICAL EXAMINATION: GENERAL: This is a well-developed, fragile, elderly woman who is lying comfortably in bed. The pat ient is sedated. HEENT: Head atraumatic, normocephalic. Sclerae anicteric. Buccal mucosa dry. NECK: Supple. Trachea midline. CHEST: Rise symmetrical. Breath sounds diminished to bases. HEART: S1, S2. ABDOMEN: Soft, bowel tones present. EXTREMITIES: Without cyanosis. ASSESSMENT: 1. Sepsis with persistent leukocytosis. 2. Pancolitis status post laparoscopic exploration with persistent diarrhea; however, stool was neg ative for Clostridium difficile, intraoperative cultures negative as well. 3. Postoperative respiratory failure with failure to wean and concern for healthcare-associated pne umonia, as per pulmonary note, started on Zosyn. 4. Status post coagulase negative staph bacteremia on admission consistent with contaminant. 5. C-spine injury status post fall, neurosurgery on case. 6. Status post pneumothorax. Chest tube being removed. 7. 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 PLAN: The patient remains hemodynamically stable with ongoing leukocytosis, now with concerns for d eveloping pneumonia. Started on Zosyn. She is also on IV Flagyl. She has persistent diarrhea. We are going to restart oral vancomycin. Repeat stool for Clostridium difficile. Send sputum culture s. Change Zosyn to meropenem. Discontinue A line. Dictated By: PHOEBE BANDA [employer] CONTROLLER for JUAN HUGHES MD NI/NTS Conf#: [id number] DID#: [id number] CC: REMINGTON ZELAYA MD;*EndCC*
[2016-03-06] MEDS: MEROPENEM 500 MG in SOD CHLORIDE 0.9% 100 ML IVPB SCH (21:31)
[2016-03-07] VITALS (39 sets, daily range): BP systolic 100–152; BP diastolic 51–77; PULSE 82–95; RESP 15–36
[2016-03-07] MEDS: PROPOFOL 100 ML IV SCH ×2 (01:48→21:57)
[2016-03-07] MEDS: D5W-0.45 NACL + KCL 20 MEQ 1,000 ML IV SCH ×3 (03:40→21:57)
[2016-03-07 05:37] LABS: ALBUMIN 1.7 g/dl (3.3-4.9)
[2016-03-07 05:38] LABS: POTASSIUM 3.3 mmol/L (3.5-5.1)
[2016-03-07 05:40] LABS: ALBUMIN/GLOBULIN RATIO 0.68; CREATININE 1.79 mg/dl (0.44-1.00); TOTAL PROTEIN 4.2 g/dl (6.1-8.1)
[2016-03-07 05:54] LABS: BASOPHILS % 0.1 % (0.0-2.0); EOSINOPHILS # 0.1 10^3/ul (0.0-0.5); EOSINOPHILS % 0.5 % (0.0-7.0); HEMATOCRIT 34.7 % (37.0-47.0); HEMOGLOBIN 11.3 g/dl (12.0-16.0); LYMPHOCYTES # 1.2 10^3/ul (0.8-2.9); LYMPHOCYTES % 5.4 % (15.0-51.0); MEAN CORPUSCULAR HGB CONC 32.6 g/dl (32.0-37.0); MEAN CORPUSCULAR VOLUME 95.1 fl (82.0-101.0); MEAN PLATELET VOLUME 13.1 fl (7.4-10.4); MONOCYTE # 1.3 10^3/ul (0.3-0.9); MONOCYTES % 5.7 % (0.0-11.0); NEUTROPHIL # 19.8 10^3/ul (1.6-7.5); NEUTROPHILS % 88.3 % (39.0-77.0); PLATELET COUNT 143 10^3/UL (140-440); RED BLOOD COUNT 3.65 10^6/ul (4.20-5.40); RED CELL DISTRIBUTION WIDTH 19.7 % (11.5-14.5); UNCORRECTED WBC 22.4 10^3/ul (4.8-10.8); WHITE BLOOD COUNT 22.4 10^3/ul (4.8-10.8)
[2016-03-07 05:58] LABS: CONDITION 1; LH ANALYZER COMMENTS 1; SUSPECT 1
[2016-03-07] MEDS ORDERED: FUROSEMIDE 40 MG INJ IV ONE (06:00)
[2016-03-07] MEDS: VANCOMYCIN HCL 250 MG/5ML POSYG PO SCH ×4 (06:18→23:50)
[2016-03-07] MEDS: LEVOTHYROXINE 25 MCG TAB PO SCH (06:19)
[2016-03-07] MEDS: metroNIDAZOLE 500 MG/NS (PMX) 100 ML IVPB SCH ×4 (06:19→23:49)
[2016-03-07] MEDS: MEROPENEM 500 MG in SOD CHLORIDE 0.9% 100 ML IVPB SCH ×2 (08:36→21:59)
[2016-03-07] MEDS: NICOTINE (21 MG/24 HR) PATCH TRANSDERM SCH (08:37)
[2016-03-07] MEDS: HEPARIN 5,000 UNIT/0.5 ML SYG SC SCH ×2 (08:38→22:11)
--- NOTE | 2016-03-07 08:59 | CONS ---
Date/Time of Note Date/Time of Note DATE: 03/07/16 TIME: 08:55 Assessment/Plan Assessment/Plan Additional Assessment/Plan Assessment/plan; 1. Patient admitted with fall resulting in hemopneumothorax doing fairly well from that perspective. 2. Status post laparotomy with C. difficile positive colitis with abdominal distention precluding weaning from mechanical ventilation. 3. Mild fluid overload currently on Lasix. 4. Renal insufficiency with slight elevation in serum creatinine. 5. Using leukocytosis to rule out intra-abdominal pathology. Next 6. She again was given a CPAP trial which she could not handle well and was switched over back to SIMV mode. Next 7. Mild hypokalemia potassium to be replaced. Recommendations; continue current ventilator settings antibiotics to feeding other supportive measures replace potassium continue meropenem oral vancomycin and Flagyl will obtain a CT abdomen and pelvis without contrast for further evaluation of abdominal distention. Patient currently is not able to be weaned off from mechanical ventilation. Consultation Date/Type/Reason Admit Date/Time Feb 24, 2016 at 04:06 Type of Consultation: pulmonary 24 HR Interval Summary Free Text/Dictation Patient's condition is currently unstable. Patient was again giving a sedation vacation as a as well as a weaning trial yesterday patient could not handle CPAP for long but will switch over to SIMV mode and is currently holding well on that patient also had a KUB x-ray done yesterday which was unremarkable however the abdomen remains distended tense bowel sounds are sluggish patient however is tolerating tube feeding well due to abdominal distention the patient is unable to be weaned off from mechanical ventilation. And is currently awake alert denies any shortness of breath but does complain of abdominal discomfort. Exam/Review of Systems Vital Signs Vitals Vital Signs Date Time Temp Pulse Resp B/P Pulse Ox O2 Delivery O2 Flow Rate FiO2 03/07/16 08:00 30 03/07/16 08:00 97.1 84 28 137/62 100 Mechanical Ventilator Intake and Output 03/06/16 03/06/16 03/07/16 14:59 22:59 06:59 Intake Total 840 ml 850.456 ml 880.38 ml Output Total 130 ml 390 ml 255 ml Balance 710 ml 460.456 ml 625.38 ml Exam HEENT examination; supple neck or intubated midline trachea no thyromegaly she does not multiple carious teeth supple neck no neck bruits no thyromegaly. Next Chest examination; diminished but clear breath sounds bilaterally, S1-S2 audible no murmurs regular rhythm. Next Abdomen examination; distended, tense, bowel sounds audible, well-healed surgical scars present. Extremity examination; trace peripheral edema, pulses 1+ bilaterally. 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 Results Result Diagram: 03/07/16 0400 03/07/16 0400 Results 24 hrs Laboratory Tests Test 03/07/16 04:00 03/07/16 07:48 Alanine Aminotransferase (ALT/SGPT) 46 Albumin 1.7 L Albumin/Globulin Ratio 0.68 Alkaline Phosphatase 332 H Anion Gap 15 Aspartate Amino Transf (AST/SGOT) 55 H Basophils # 0.0 Basophils % 0.1 Blood Morphology Comment Blood Urea Nitrogen 72 H Calcium Level 7.0 L Carbon Dioxide Level 22 Chloride Level 112 H Creatinine 1.79 H Direct Bilirubin 0.00 Eosinophils # 0.1 Eosinophils % 0.5 Globulin 2.50 Glucose Level 117 Hematocrit 34.7 L Hemoglobin 11.3 L Indirect Bilirubin 0.0 Lymphocytes # 1.2 Lymphocytes % 5.4 L Mean Corpuscular Hemoglobin 31.0 Mean Corpuscular Hemoglobin Concent 32.6 Mean Corpuscular Volume 95.1 Mean Platelet Volume 13.1 H Monocytes # 1.3 H Monocytes % 5.7 Neutrophils # 19.8 H Neutrophils % 88.3 H Nucleated Red Blood Cells # 0.0 Nucleated Red Blood Cells % 0.0 Platelet Count 143 Potassium Level 3.3 L Red Blood Count 3.65 L Red Cell Distribution Width 19.7 H Sodium Level 146 H Total Bilirubin 0.0 L Total Protein 4.2 L White Blood Count 22.4 #H Lab Scanned Report REFERENCE LAB Medications Medications Current Medications Lorazepam (Ativan) 0.5 mg Q6H PRN IV ANXIETY Last administered on 02/26/16 02: 02; Admin Dose 0.5 MG; Start 02/24/16 at 02:00 Ondansetron HCl (Zofran Inj) 4 mg Q6H PRN IV NAUSEA AND/OR VOMITING Last administered on 03/01/16 13:17; Admin Dose 4 MG; Start 02/24/16 at 02:00 Nitroglycerin (Nitroglycerin (Sl Tab) 0.4 Mg) 1 tab Q5M PRN SL CHEST PAIN; Start 02/24/16 at 02:00 Hydralazine HCl (Apresoline) 10 mg Q6H PRN IV SBP > 160 Last administered on 05:19; Admin Dose 10 MG; Start 02/24/16 at 02:00 Labetalol HCl (Labetalol) 10 mg Q6 PRN IV ELEVATED BLOOD PRESSURE; Start at 23:00 Guaifenesin/ Dextromethorphan (Robitussin Dm Liquid Cup) 5 ml Q6 PRN PO COUGH Last administered on 02/27/16 18:12; Admin Dose 5 ML; Start 02/24/16 at 23:00 Nicotine (Nicoderm 21 Mg/ 24hr) 1 patch DAILY TRANSDERM Last administered on 08:37; Admin Dose 1 PATCH; Start 02/26/16 at 09:00 Levothyroxine Sodium 25 mcg 25 mcg DAILY@06 PO Last administered on 03/07/16 06:19; Admin Dose 25 MCG; Start 02/28/16 at 06:00 Metronidazole 100 ml @ 100 mls/hr Q6 IVPB Last administered on 03/07/16 06:19 ; Admin Dose 100 MLS/HR; Start 02/28/16 at 13:30 Propofol (Diprivan) 100 ml @ 1.692 mls/ hr Q12H IV Last administered on 01:48; Admin Dose 8.46 MLS/HR; Start 03/01/16 at 20:30 Hydromorphone HCl (Dilaudid) 0.5 mg Q3 PRN IV PAIN Last administered on 01:18; Admin Dose 0.5 MG; Start 03/02/16 at 17:00 Heparin Sodium (Porcine) 5000 unit 5,000 unit BID SC Last administered on 08:38; Admin Dose 5,000 UNIT; Start 03/02/16 at 21:30 Potassium Chloride/Dextrose/ Sod Cl 1,000 ml @ 70 mls/hr [id number] IV Last administered on 03/07/16 03:40; Admin Dose 70 MLS/HR; Start 03/05/16 at 10:00 Meropenem/Sodium Chloride (Merrem/NS) 100 ml @ 200 mls/hr Q12 IVPB Last administered on 03/07/16 08:36; Admin Dose 200 MLS/HR; Start 03/06/16 at 21:00 Vancomycin HCl (Vancomycin Oral Syringe) 250 mg Q6 PO Last administered on 03/07 06:18; Admin Dose 250 MG; Start 03/06/16 at 18:00 Potassium Chloride (Potassium Chloride Pwd/Soln) 40 meq ONCE ONCE NGT Last administered on 03/07/16 08:42; Admin Dose 40 MEQ; Start 03/07/16 at 09:00; Stop 03/07/16 at 09:01 GAIL SPENCER Mar 07, 2016 08:59
[2016-03-07] MEDS ORDERED: POTASSIUM CHLORIDE 20 MEQ POWDER FOR ORAL SOLN NGT ONE ×2 (09:00→17:30)
[2016-03-07] MEDS ORDERED: VANCOMYCIN 1 GM (PMX) 250 ML IVPB SCH (13:30)
--- NOTE | 2016-03-07 15:34 | PN ---
DATE: 03/07/2016 SUBJECTIVE: No acute events. Patient is lying comfortably in bed. She is on SIMV mode. She is awake, responsive and in no distress, still with profuse diarrhea. No fevers. VITAL SIGNS: Temperature 97.1, pulse 91, respirations 20, blood pressure 137/69 , saturation 100 on 30 FIO2. WBC today 22.4, H and H 11.3 and 34.7, platelets 143. Neutrophils 88.3, BUN 72 , creatinine 1.79. MICROBIOLOGY: Sputum culture pending. ANTIMICROBIALS: 1. IV meropenem and oral vancomycin 2. IV Flagyl. INDWELLINGS: Endotracheal tube, NG tube, Francois catheter, rectal tube, right IJ triple-lumen catheter. PHYSICAL EXAMINATION: GENERAL: This is a fragile, elderly woman who is awake, in no distress. HEENT: Head atraumatic, normocephalic. Sclerae anicteric. Buccal mucosa dry. NECK: Supple, trachea midline. CHEST: Rise symmetrical. Breath sounds diminished to bases. HEART: S1, S2. ABDOMEN: Abdomen distended. Bowel tones hypoactive. EXTREMITIES: Bilateral edema. ASSESSMENT: 1. Persistent leukocytosis . Etiology could be secondary to pneumonia versus intraabdominal. 2. Pancolitis with stool for Clostridium difficile on March 02 was negative. 3. Status post laparoscopic exploration done by Dr. Raza on 03/01/2016 with peritoneal fluid cultures being negative and pathology revealed no evidence for malignant cells. 4. Respiratory failure, possible healthcare-associated pneumonia, started on antibiotics yesterday by pulmonary team. 5. Status post C-spine injury secondary to fall and rib fracture resulting in a pneumothorax status post video-assisted thoracotomy. 6. Anemia. 7. Acute renal failure. PLAN: The patient remains hemodynamically stable, also increased leukocytosis is worrisome. Stool for C. diff repeated yesterday pending, sputum culture pending. We are going to panculture her now. We are going to give her a dose of vancomycin. Start her back on Dificid for concern of Clostridium difficile colitis. We will discuss this with pulmonary team the need for antibiotics. Dictated By: PHOEBE BANDA MILKING SYSTEM INSTALLER for JUAN THOMAS/JOSUÉ Conf#: [id number] DID#: [id number] [facility]
[2016-03-07] MEDS ORDERED: POTASSIUM CHLORIDE (SR) 20 MEQ TAB PO STA (15:48)
--- NOTE | 2016-03-07 15:51 | PN ---
Date/Time of Note Date/Time of Note DATE: 03/07/16 TIME: 15:50 Assessment/Plan VTE Prophylaxis VTE Prophylaxis Intervention: other Lines/Catheters IV Catheter Type (from Nrsg): Central Line Central line still needed: Yes Urinary Cath still in place: Yes Reason Cath still needed: other (indicate) Assessment/Plan Chief Complaint/Hosp Course 1. Left video-assisted thoracic surgery, total pulmonary decortication. 2.s/p Control of chest bleeding. 3. sepsis better 4 s/p fall 5 lung infilterate better 6 hyponatremia better 7 djd 8 ddd 9 hx htn 10 positive gold test 11 UTI 12HYPOTHYROIDISM 13 collites better 14 markos 15 atn better 16 pancolites 16 metabolic acidosis better plan per dr howe and neuro surgery labs id dr marguerite velazquez and dr black to f/u pain meds per pulmonary weaning kcl Problems: Subjective 24 Hr Interval Summary Cardiovascular: no complaints Gastrointestinal: no complaints Genitourinary: no complaints Exam/Review of Systems Vital Signs Vitals Vital Signs Date Time Temp Pulse Resp B/P Pulse Ox O2 Delivery O2 Flow Rate FiO2 03/07/16 12:00 91 03/07/16 11:00 31 100 30 03/07/16 10:00 138/69 Mechanical Ventilator 03/07/16 08:00 97.1 Intake and Output 03/06/16 03/06/16 03/07/16 15:00 23:00 07:00 Intake Total 855 ml 1028.916 ml 780.38 ml Output Total 140 ml 385 ml 305 ml Balance 715 ml 643.916 ml 475.38 ml Exam Neck: supple Respiratory: clear to auscultation Cardiovascular: regular rate and rhythm Gastrointestinal: bowel sounds (+), soft Extremities: No edema Results Result Diagram: 03/07/16 0400 03/07/16 0400 Results 24 hrs Laboratory Tests Test 03/07/16 04:00 03/07/16 07:48 Alanine Aminotransferase (ALT/SGPT) 46 Albumin 1.7 L Albumin/Globulin Ratio 0.68 Alkaline Phosphatase 332 H Anion Gap 15 Aspartate Amino Transf (AST/SGOT) 55 H Basophils # 0.0 Basophils % 0.1 Blood Morphology Comment Blood Urea Nitrogen 72 H Calcium Level 7.0 L Carbon Dioxide Level 22 Chloride Level 112 H Creatinine 1.79 H Direct Bilirubin 0.00 Eosinophils # 0.1 Eosinophils % 0.5 Globulin 2.50 Glucose Level 117 Hematocrit 34.7 L Hemoglobin 11.3 L Indirect Bilirubin 0.0 Lymphocytes # 1.2 Lymphocytes % 5.4 L Mean Corpuscular Hemoglobin 31.0 Mean Corpuscular Hemoglobin Concent 32.6 Mean Corpuscular Volume 95.1 Mean Platelet Volume 13.1 H Monocytes # 1.3 H Monocytes % 5.7 Neutrophils # 19.8 H Neutrophils % 88.3 H Nucleated Red Blood Cells # 0.0 Nucleated Red Blood Cells % 0.0 Platelet Count 143 Potassium Level 3.3 L Red Blood Count 3.65 L Red Cell Distribution Width 19.7 H Sodium Level 146 H Total Bilirubin 0.0 L Total Protein 4.2 L White Blood Count 22.4 #H Lab Scanned Report REFERENCE LAB Medications Medications Current Medications Lorazepam (Ativan) 0.5 mg Q6H PRN IV ANXIETY Last administered on 02/26/16 02: 02; Admin Dose 0.5 MG; Start 02/24/16 at 02:00 Ondansetron HCl (Zofran Inj) 4 mg Q6H PRN IV NAUSEA AND/OR VOMITING Last administered on 03/01/16 13:17; Admin Dose 4 MG; Start 02/24/16 at 02:00 Nitroglycerin (Nitroglycerin (Sl Tab) 0.4 Mg) 1 tab Q5M PRN SL CHEST PAIN; Start 02/24/16 at 02:00 Hydralazine HCl (Apresoline) 10 mg Q6H PRN IV SBP > 160 Last administered on 05:19; Admin Dose 10 MG; Start 02/24/16 at 02:00 Labetalol HCl (Labetalol) 10 mg Q6 PRN IV ELEVATED BLOOD PRESSURE; Start at 23:00 Guaifenesin/ Dextromethorphan (Robitussin Dm Liquid Cup) 5 ml Q6 PRN PO COUGH Last administered on 02/27/16 18:12; Admin Dose 5 ML; Start 02/24/16 at 23:00 Nicotine (Nicoderm 21 Mg/ 24hr) 1 patch DAILY TRANSDERM Last administered on 08:37; Admin Dose 1 PATCH; Start 02/26/16 at 09:00 Levothyroxine Sodium 25 mcg 25 mcg DAILY@06 PO Last administered on 03/07/16 06:19; Admin Dose 25 MCG; Start 02/28/16 at 06:00 Metronidazole 100 ml @ 100 mls/hr Q6 IVPB Last administered on 03/07/16 11:27 ; Admin Dose 100 MLS/HR; Start 02/28/16 at 13:30 Propofol (Diprivan) 100 ml @ 1.692 mls/ hr Q12H IV Last administered on 01:48; Admin Dose 8.46 MLS/HR; Start 03/01/16 at 20:30 Hydromorphone HCl (Dilaudid) 0.5 mg Q3 PRN IV PAIN Last administered on 01:18; Admin Dose 0.5 MG; Start 03/02/16 at 17:00 Heparin Sodium (Porcine) 5000 unit 5,000 unit BID SC Last administered on 08:38; Admin Dose 5,000 UNIT; Start 03/02/16 at 21:30 Potassium Chloride/Dextrose/ Sod Cl 1,000 ml @ 70 mls/hr [id number] IV Last administered on 03/07/16 14:32; Admin Dose 70 MLS/HR; Start 03/05/16 at 10:00 Meropenem/Sodium Chloride (Merrem/NS) 100 ml @ 200 mls/hr Q12 IVPB Last administered on 03/07/16 08:36; Admin Dose 200 MLS/HR; Start 03/06/16 at 21:00 Vancomycin HCl (Vancomycin Oral Syringe) 250 mg Q6 PO Last administered on 03/07 11:27; Admin Dose 250 MG; Start 03/06/16 at 18:00 Fidaxomicin (Dificid) 200 mg BID PO ; Start 03/07/16 at 21:00 REMINGTON ZELAYA MD Mar 07, 2016 15:51
--- NOTE | 2016-03-07 17:50 | PN ---
Date/Time of Note Date/Time of Note DATE: 03/07/16 TIME: 17:48 Assessment/Plan Lines/Catheters IV Catheter Type (from [facility]): Central Line Francois in Place (from [facility]): Yes Assessment/Plan Chief Complaint/Hosp Course 1. Abdominal pain, with CT diagnosis of pancolitis, with significant leukocytosis and bandemia. s/p Lap exploration and only small mid transverse with min mottling. Bowel function. Worsening WBC after Abx stopped. -Resume Antibiotics per ID -Judicious fluid management 2. Sepsis, multifactorial (pancolitis ? ischemic, urinary tract infection, pulmonary infiltrates, bacteremia). -Aggressive antibiotic therapy. -Judicious fluid management. -Close monitoring. 3. Renal insufficiency secondary to sepsis. Improving Cr today -Continue judicious fluid management. -Avoid nephrotoxic agents as possible. 4. Anemia, with recent hemothorax requiring VATS decortication. -Continue chest tube and monitor output. -CT surgery following. -Transfuse as needed. 5. Hypoalbuminemia. -Eventual nutritional optimization. 6. Hypernatremia -Correct with fluid management. 7. Hypertension. -Nutritional and medication optimization. 8. Hypothyroidism. -Replace hormone. 9. Hemopneumothorax, status post VATS. CT removed -followed by CT surgery. 10. Cervical spine injury, being maintained in brace by neurosurgery. 11. Hypokalemia -replete Thank you, Problems: Subjective 24 Hr Interval Summary Worsening leukocytosis after abx stopped. Continues to be intubated. No f/c. No v. Bowel function yesterday. Bloated. No cough. No sz. No rash. Exam/Review of Systems Vital Signs Vitals Vital Signs Date Time Temp Pulse Resp B/P Pulse Ox O2 Delivery O2 Flow Rate FiO2 03/07/16 17:00 88 30 100 30 03/07/16 10:00 138/69 Mechanical Ventilator 03/07/16 08:00 97.1 Intake and Output 03/06/16 03/06/16 03/07/16 15:00 23:00 07:00 Intake Total 855 ml 1028.916 ml 780.38 ml Output Total 140 ml 385 ml 305 ml Balance 715 ml 643.916 ml 475.38 ml Exam Free Text/Dictation GENERAL: Ventilated, NAD HEENT: Pupils equal, reactive. No scleral icterus. Mucous membranes are somewhat dry. ETT NECK: No crepitus. No JVD. PULMONARY: Minimally coarse. ABDOMEN: Diffuse tenderness, not rigid, distended EXTREMITIES: Trace edema. VASCULAR: Capillary refill is 2 seconds. NEUROLOGIC: Ventilated and sedated SKIN: No rashes/jaundice. PSYCH: Ventilated Results Result Diagram: 03/07/1639903/07/16399 CHRISTIANO JENNINGS MD Mar 07, 2016 17:50
--- NOTE | 2016-03-07 20:14 | CONS ---
Date/Time of Note Date/Time of Note DATE: 03/07/16 TIME: 20:12 Assessment/Plan Assessment/Plan Additional Assessment/Plan Additional Assessment/Plan 1. Pancolitis, c.difficile negative,no infarct on laparotomy exam,culture,wbc in stool negative 2. Fracture of the ribs. 3. Pneumothorax status post chest tube placement. 4. History of nicotine addiction. 5. Cervical spine injury. 6. History of fall. 7. Peripheral arterial disease. 8. Mild elevation of alkaline phosphatase, most probably related to alcoholic liver disease. 9. Anemia. 10. Chronic kidney disease, worsening. 11.s/p exploratory laparotomy,no bowel resection 12.respiratory failure 13. renal failure PLAN: 1. At this point, she is on tigecycline and vancomycin and Flagyl. We will continue. 2. feeding as per surgeon 3. Monitor WBC count closely. 4. continue post op care,so far no stool was sent for c.difficile 5. Stool for Clostridium difficile toxin,negative. 6. On antibiotic as per Infectious Disease. 7.nephro at 35 cc/hr. Consultation Date/Type/Reason Admit Date/Time Feb 24, 2016 at 04:06 Type of Consultation: pulmonary 24 HR Interval Summary Subjective hx not possible: pt critical Constitutional: improved Exam/Review of Systems Vital Signs Vitals Vital Signs Date Time Temp Pulse Resp B/P Pulse Ox O2 Delivery O2 Flow Rate FiO2 03/07/16 18:00 91 26 134/66 100 Mechanical Ventilator 03/07/16 17:00 30 03/07/16 16:00 98.6 Intake and Output 03/06/16 03/06/16 03/07/16 15:00 23:00 07:00 Intake Total 855 ml 1028.916 ml 780.38 ml Output Total 140 ml 385 ml 305 ml Balance 715 ml 643.916 ml 475.38 ml Exam Constitutional: alert, oriented, well developed Psych: nl mood/affect, no complaints Head: atraumatic, normocephalic Eyes: EOMI, PERRL, nl conjunctiva, nl lids, nl sclera ENMT: nl external ears & nose, nl lips & teeth, nl nasal mucosa & septum Neck: non-tender, supple Respiratory: clear to auscultation, normal air movement Cardiovascular: nl pulses, regular rate and rhythm Gastrointestinal: nl liver, spleen, non-tender, soft Musculoskeletal: nl extremities to inspection, nl gait and stance Extremities: normal pulses Neurological: 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 GENETICIST II-XII intact, nl mental status, nl speech, nl strength Skin: nl turgor, No rash or lesions Lymph: nl lymph nodes Results Result Diagram: 03/07/16 0400 03/07/16 0400 Results 24 hrs Laboratory Tests Test 03/07/16 04:00 03/07/16 07:48 Alanine Aminotransferase (ALT/SGPT) 46 Albumin 1.7 L Albumin/Globulin Ratio 0.68 Alkaline Phosphatase 332 H Anion Gap 15 Aspartate Amino Transf (AST/SGOT) 55 H Basophils # 0.0 Basophils % 0.1 Blood Morphology Comment Blood Urea Nitrogen 72 H Calcium Level 7.0 L Carbon Dioxide Level 22 Chloride Level 112 H Creatinine 1.79 H Direct Bilirubin 0.00 Eosinophils # 0.1 Eosinophils % 0.5 Globulin 2.50 Glucose Level 117 Hematocrit 34.7 L Hemoglobin 11.3 L Indirect Bilirubin 0.0 Lymphocytes # 1.2 Lymphocytes % 5.4 L Mean Corpuscular Hemoglobin 31.0 Mean Corpuscular Hemoglobin Concent 32.6 Mean Corpuscular Volume 95.1 Mean Platelet Volume 13.1 H Monocytes # 1.3 H Monocytes % 5.7 Neutrophils # 19.8 H Neutrophils % 88.3 H Nucleated Red Blood Cells # 0.0 Nucleated Red Blood Cells % 0.0 Platelet Count 143 Potassium Level 3.3 L Red Blood Count 3.65 L Red Cell Distribution Width 19.7 H Sodium Level 146 H Total Bilirubin 0.0 L Total Protein 4.2 L White Blood Count 22.4 #H Lab Scanned Report REFERENCE LAB Medications Medications Current Medications Lorazepam (Ativan) 0.5 mg Q6H PRN IV ANXIETY Last administered on 02/26/16 02: 02; Admin Dose 0.5 MG; Start 02/24/16 at 02:00 Ondansetron HCl (Zofran Inj) 4 mg Q6H PRN IV NAUSEA AND/OR VOMITING Last administered on 03/01/16 13:17; Admin Dose 4 MG; Start 02/24/16 at 02:00 Nitroglycerin (Nitroglycerin (Sl Tab) 0.4 Mg) 1 tab Q5M PRN SL CHEST PAIN; Start 02/24/16 at 02:00 Hydralazine HCl (Apresoline) 10 mg Q6H PRN IV SBP > 160 Last administered on 05:19; Admin Dose 10 MG; Start 02/24/16 at 02:00 Labetalol HCl (Labetalol) 10 mg Q6 PRN IV ELEVATED BLOOD PRESSURE; Start at 23:00 Guaifenesin/ Dextromethorphan (Robitussin Dm Liquid Cup) 5 ml Q6 PRN PO COUGH Last administered on 02/27/16 18:12; Admin Dose 5 ML; Start 02/24/16 at 23:00 Nicotine (Nicoderm 21 Mg/ 24hr) 1 patch DAILY TRANSDERM Last administered on 08:37; Admin Dose 1 PATCH; Start 02/26/16 at 09:00 Levothyroxine Sodium 25 mcg 25 mcg DAILY@06 PO Last administered on 03/07/16 06:19; Admin Dose 25 MCG; Start 02/28/16 at 06:00 Metronidazole 100 ml @ 100 mls/hr Q6 IVPB Last administered on 03/07/16 17:16 ; Admin Dose 100 MLS/HR; Start 02/28/16 at 13:30 Propofol (Diprivan) 100 ml @ 1.692 mls/ hr Q12H IV Last administered on 01:48; Admin Dose 8.46 MLS/HR; Start 03/01/16 at 20:30 Hydromorphone HCl (Dilaudid) 0.5 mg Q3 PRN IV PAIN Last administered on 01:18; Admin Dose 0.5 MG; Start 03/02/16 at 17:00 Heparin Sodium (Porcine) 5000 unit 5,000 unit BID SC Last administered on 08:38; Admin Dose 5,000 UNIT; Start 03/02/16 at 21:30 Potassium Chloride/Dextrose/ Sod Cl 1,000 ml @ 70 mls/hr [id number] IV Last administered on 03/07/16 14:32; Admin Dose 70 MLS/HR; Start 03/05/16 at 10:00 Meropenem/Sodium Chloride (Merrem/NS) 100 ml @ 200 mls/hr Q12 IVPB Last administered on 03/07/16 08:36; Admin Dose 200 MLS/HR; Start 03/06/16 at 21:00 Vancomycin HCl (Vancomycin Oral Syringe) 250 mg Q6 PO Last administered on 03/07t 17:15; Admin Dose 250 MG; Start 03/06/16 at 18:00 Fidaxomicin (Dificid) 200 mg BID PO ; Start 03/07/16 at 21:00 CHARISSA WILHELM MD Mar 07, 2016 20:14
[2016-03-07] MEDS: FIDAXOMICIN 200 MG TABLET PO SCH (21:57)
[2016-03-08] VITALS (45 sets, daily range): BP systolic 102–135; BP diastolic 45–66; PULSE 71–92; RESP 15–32
[2016-03-08 04:58] LABS: EOSINOPHILS # 0.1 10^3/ul (0.0-0.5); EOSINOPHILS % 0.4 % (0.0-7.0); HEMATOCRIT 32.1 % (37.0-47.0); HEMOGLOBIN 10.5 g/dl (12.0-16.0); LYMPHOCYTES # 0.9 10^3/ul (0.8-2.9); MEAN CORPUSCULAR HEMOGLOBIN 31.1 pg (29.0-33.0); MEAN CORPUSCULAR HGB CONC 32.6 g/dl (32.0-37.0); MEAN CORPUSCULAR VOLUME 95.4 fl (82.0-101.0); MEAN PLATELET VOLUME 13.2 fl (7.4-10.4); MONOCYTE # 1.3 10^3/ul (0.3-0.9); MONOCYTES % 5.6 % (0.0-11.0); NEUTROPHIL # 20.4 10^3/ul (1.6-7.5); PLATELET COUNT 160 10^3/UL (140-440); RED BLOOD COUNT 3.37 10^6/ul (4.20-5.40); RED CELL DISTRIBUTION WIDTH 19.6 % (11.5-14.5); UNCORRECTED WBC 22.7 10^3/ul (4.8-10.8); WHITE BLOOD COUNT 22.7 10^3/ul (4.8-10.8)
[2016-03-08 05:02] LABS: CONDITION 1; LH ANALYZER COMMENTS 1; SUSPECT 1
[2016-03-08 05:09] LABS: POTASSIUM 3.4 mmol/L (3.5-5.1)
[2016-03-08 05:12] LABS: CREATININE 1.64 mg/dl (0.44-1.00)
[2016-03-08 05:13] LABS: CALCIUM 7.1 mg/dl (8.4-10.2)
[2016-03-08] MEDS: metroNIDAZOLE 500 MG/NS (PMX) 100 ML IVPB SCH ×4 (05:43→23:56)
[2016-03-08] MEDS: LEVOTHYROXINE 25 MCG TAB PO SCH (05:43)
[2016-03-08] MEDS: VANCOMYCIN HCL 250 MG/5ML POSYG PO SCH ×4 (05:43→23:56)
[2016-03-08] MEDS: PROPOFOL 100 ML IV SCH ×2 (05:48→16:12)
--- NOTE | 2016-03-08 08:10 | CONS ---
Date/Time of Note Date/Time of Note DATE: 03/08/16 TIME: 08:05 Assessment/Plan Assessment/Plan Additional Assessment/Plan Assessment and recommendations; 1. Patient admitted with hemopneumothorax currently doing well from that standpoint 2. C. difficile colitis clinically improved. 3. Status post laparotomy. Without any significant findings. 4. Renal insufficiency with improving renal function. 5. Persistent leukocytosis. Without any interval worsening. Next 6. Failure to be weaned from mechanical ventilation due to significant fluid overload. 7. Mild hypokalemia. Next Recommendations: Continue current ventilator settings, antibiotics, tube feeding , other supportive measures. Potassium to be replaced. At this time I would recommend starting the patient on intravenous Lasix 40 mg IV every 12 hours with albumin 25 g IV every 12 hours at least for 4 doses. Further mechanical ventilation meaning to be performed once the patient has significant reduction in generalized anasarca. Consultation Date/Type/Reason Admit Date/Time Feb 24, 2016 at 04:06 Type of Consultation: pulmonary 24 HR Interval Summary Free Text/Dictation Patient's condition remains unchanged. The patient was given a sedation vacation yesterday and was tried on CPAP mode for a while but he did not tolerate that at the very sedated and switched back to SIMV mode. Currently the patient is still orally intubated, sedated, currently in no distress. Exam/Review of Systems Vital Signs Vitals Vital Signs Date Time Temp Pulse Resp B/P Pulse Ox O2 Delivery O2 Flow Rate FiO2 03/08/16 07:30 83 27 124/59 100 Mechanical Ventilator 03/08/16 07:00 97.7 03/08/16 05:10 30 Intake and Output 03/07/16 03/07/16 03/08/16 15:00 23:00 07:00 Intake Total 1225.36 ml 1297.55 ml 1036.05 ml Output Total 395 ml 250 ml 165 ml Balance 830.36 ml 1047.55 ml 871.05 ml Exam HEENT examination; supple neck no JVD no lymphadenopathy, no thyromegaly, or intubated. It was a small bilaterally. No lymphadenopathy. No thyromegaly. Chest examination; diminished but clear breath sounds. S1-S2 audible no murmurs., Regular rhythm. Abdomen examination; distended with abdominal wall edema multiple well-healed scars are present bowel sounds audible. Extremity examination; 2+ generalized edema. Pulses 1+ bilaterally. BAR PILOT examination; patient currently is sedated. Results Result Diagram: 03/08/16 0400 03/08/16 0400 Results 24 hrs Laboratory Tests Test 03/08/16 04:00 Anion Gap 12 Basophils # 0.0 Basophils % 0.0 Blood Morphology Comment Blood Urea Nitrogen 70 H Calcium Level 7.1 L Carbon Dioxide Level 21 Chloride Level 115 H Creatinine 1.64 H Eosinophils # 0.1 Eosinophils % 0.4 Glucose Level 117 Hematocrit 32.1 L Hemoglobin 10.5 L Lymphocytes # 0.9 Lymphocytes % 4.0 L Mean Corpuscular Hemoglobin 31.1 Mean Corpuscular Hemoglobin Concent 32.6 Mean Corpuscular Volume 95.4 Mean Platelet Volume 13.2 H Monocytes # 1.3 H Monocytes % 5.6 Neutrophils # 20.4 H Neutrophils % 90.0 H Nucleated Red Blood Cells # 0.0 Nucleated Red Blood Cells % 0.0 Platelet Count 160 Potassium Level 3.4 L Red Blood Count 3.37 L Red Cell Distribution Width 19.6 H Sodium Level 145 H White Blood Count 22.7 H Medications Medications Current Medications Lorazepam (Ativan) 0.5 mg Q6H PRN IV ANXIETY Last administered on 02/26/16 02: 02; Admin Dose 0.5 MG; Start 02/24/16 at 02:00 Ondansetron HCl (Zofran Inj) 4 mg Q6H PRN IV NAUSEA AND/OR VOMITING Last administered on 03/01/16 13:17; Admin Dose 4 MG; Start 02/24/16 at 02:00 Nitroglycerin (Nitroglycerin (Sl Tab) 0.4 Mg) 1 tab Q5M PRN SL CHEST PAIN; Start 02/24/16 at 02:00 Hydralazine HCl (Apresoline) 10 mg Q6H PRN IV SBP > 160 Last administered on 05:19; Admin Dose 10 MG; Start 02/24/16 at 02:00 Labetalol HCl (Labetalol) 10 mg Q6 PRN IV ELEVATED BLOOD PRESSURE; Start at 23:00 Guaifenesin/ Dextromethorphan (Robitussin Dm Liquid Cup) 5 ml Q6 PRN PO COUGH Last administered on 02/27/16 18:12; Admin Dose 5 ML; Start 02/24/16 at 23:00 Nicotine (Nicoderm 21 Mg/ 24hr) 1 patch DAILY TRANSDERM Last administered on 08:37; Admin Dose 1 PATCH; Start 02/26/16 at 09:00 Levothyroxine Sodium 25 mcg 25 mcg DAILY@06 PO Last administered on 03/08/16 05:43; Admin Dose 25 MCG; Start 02/28/16 at 06:00 Metronidazole 100 ml @ 100 mls/hr Q6 IVPB Last administered on 03/08/16 05:43 ; Admin Dose 100 MLS/HR; Start 02/28/16 at 13:30 Propofol (Diprivan) 100 ml @ 1.692 mls/ hr Q12H IV Last administered on 05:48; Admin Dose 10.152 MLS/HR; Start 03/01/16 at 20:30 Hydromorphone HCl (Dilaudid) 0.5 mg Q3 PRN IV PAIN Last administered on 01:18; Admin Dose 0.5 MG; Start 03/02/16 at 17:00 Heparin Sodium (Porcine) 5000 unit 5,000 unit BID SC Last administered on 22:11; Admin Dose 5,000 UNIT; Start 03/02/16 at 21:30 Potassium Chloride/Dextrose/ Sod Cl 1,000 ml @ 70 mls/hr [id number] IV Last administered on 03/07/16 21:57; Admin Dose 70 MLS/HR; Start 03/05/16 at 10:00 Meropenem/Sodium Chloride (Merrem/NS) 100 ml @ 200 mls/hr Q12 IVPB Last administered on 03/07/16 21:59; Admin Dose 200 MLS/HR; Start 03/06/16 at 21:00 Vancomycin HCl (Vancomycin Oral Syringe) 250 mg Q6 PO Last administered on 03/08 05:43; Admin Dose 250 MG; Start 03/06/16 at 18:00 Fidaxomicin (Dificid) 200 mg BID PO Last administered on 03/07/16 21:57; Admin Dose 200 MG; Start 03/07/16 at 21:00 GAIL SPENCER Mar 08, 2016 08:09
[2016-03-08] MEDS: FIDAXOMICIN 200 MG TABLET PO SCH ×2 (08:43→20:43)
[2016-03-08] MEDS: NICOTINE (21 MG/24 HR) PATCH TRANSDERM SCH (08:43)
[2016-03-08] MEDS: ALBUMIN HUMAN 25% 100 ML IV SCH ×3 (08:44→23:57)
[2016-03-08] MEDS: MEROPENEM 500 MG in SOD CHLORIDE 0.9% 100 ML IVPB SCH (08:45)
[2016-03-08] MEDS: HEPARIN 5,000 UNIT/0.5 ML SYG SC SCH ×2 (08:53→20:43)
--- NOTE | 2016-03-08 09:03 | RADRPT ---
PROCEDURE: XR Chest. CLINICAL INDICATION: Pneumonia TECHNIQUE: Chest AP portable. COMPARISON: 03/06/2016 FINDINGS: Endotracheal tube is 2-3 cm above the blaire. Nasogastric tube is in the stomach. Right internal j ugular line is in the superior vena cava. The mediastinal structures are unremarkable. There is calcification of the thoracic aorta (consiste nt with atherosclerosis). The heart is normal in size and configuration. The pulmonary vascularity i s normal. There are low lung volumes. There is bibasilar subsegmental atelectasis. The pleural spa zelda are unremarkable. There are senescent changes of the axial skeleton. IMPRESSION: Low lung volumes. Mild bibasilar subsegmental atelectasis. RPTAT: HGDB .Kiran Lara MD, Date Time Electronically viewed and signed by .Kiran Lara MD, on 03/08/2016 09:03 .B/
[2016-03-08] MEDS: FUROSEMIDE 40 MG INJ IV SCH ×2 (09:48→17:33)
--- NOTE | 2016-03-08 10:17 | CONS ---
Date/Time of Note Date/Time of Note DATE: 03/08/16 TIME: 10:13 Assessment/Plan Assessment/Plan Additional Assessment/Plan dditional Assessment/Plan 1. Pancolitis, c.difficile negative,no infarct on laparotomy exam,culture,wbc in stool negative 2. Fracture of the ribs. 3. Pneumothorax status post chest tube placement. 4. History of nicotine addiction. 5. Cervical spine injury. 6. History of fall. 7. Peripheral arterial disease. 8. Mild elevation of alkaline phosphatase, most probably related to alcoholic liver disease. 9. Anemia. 10. Chronic kidney disease, worsening. 11.s/p exploratory laparotomy,no bowel resection 12.respiratory failure 13. renal failure,improving 14 steatohepatitis 15leucocytosis,panculture done PLAN: 1. At this point, she is on imipenum and vancomycin and Flagyl. also on dificid 2. feeding as per surgeon 3. Monitor WBC count closely. 4. continue post op care,so far no stool was sent for c.difficile 5. Stool for Clostridium difficile toxin,negative. 6. On antibiotic as per Infectious Disease. 7.nephro at 35 cc/hr. Consultation Date/Type/Reason Admit Date/Time Feb 24, 2016 at 04:06 Type of Consultation: pulmonary 24 HR Interval Summary Subjective hx not possible: pt critical Constitutional: no complaints Exam/Review of Systems Vital Signs Vitals Vital Signs Date Time Temp Pulse Resp B/P Pulse Ox O2 Delivery O2 Flow Rate FiO2 03/08/16 09:30 84 26 125/60 100 Mechanical Ventilator 03/08/16 09:00 30 03/08/16 07:00 97.7 Intake and Output 03/07/16 03/07/16 03/08/16 15:00 23:00 07:00 Intake Total 1225.36 ml 1297.55 ml 1141.05 ml Output Total 395 ml 250 ml 180 ml Balance 830.36 ml 1047.55 ml 961.05 ml Exam Constitutional: alert, oriented, well developed Psych: nl mood/affect, no complaints Head: atraumatic, normocephalic Eyes: EOMI, PERRL, nl conjunctiva, nl lids, nl sclera ENMT: nl external ears & nose, nl lips & teeth, nl nasal mucosa & septum Neck: non-tender, supple Respiratory: clear to auscultation, normal air movement Cardiovascular: nl pulses, regular rate and rhythm Gastrointestinal: nl liver, spleen, non-tender, soft Musculoskeletal: nl extremities to inspection, nl gait and stance Extremities: normal pulses Neurological: PROFESSOR OF ENVIRONMENTAL STUDIES II-XII intact, nl mental status, nl speech, nl strength Skin: nl turgor, No rash or lesions Lymph: nl lymph nodes Results Result Diagram: 03/08/16 0400 03/08/16 0400 Results 24 hrs Laboratory Tests Test 03/08/16 04:00 Anion Gap 12 Basophils # 0.0 Basophils % 0.0 Blood Morphology Comment Blood Urea Nitrogen 70 H Calcium Level 7.1 L Carbon Dioxide Level 21 Chloride Level 115 H Creatinine 1.64 H Eosinophils # 0.1 Eosinophils % 0.4 Glucose Level 117 Hematocrit 32.1 L Hemoglobin 10.5 L Lymphocytes # 0.9 Lymphocytes % 4.0 L Mean Corpuscular Hemoglobin 31.1 Mean Corpuscular Hemoglobin Concent 32.6 Mean Corpuscular Volume 95.4 Mean Platelet Volume 13.2 H Monocytes # 1.3 H Monocytes % 5.6 Neutrophils # 20.4 H Neutrophils % 90.0 H Nucleated Red Blood Cells # 0.0 Nucleated Red Blood Cells % 0.0 Platelet Count 160 Potassium Level 3.4 L Red Blood Count 3.37 L Red Cell Distribution Width 19.6 H Sodium Level 145 H White Blood Count 22.7 H Medications Medications Current Medications Lorazepam (Ativan) 0.5 mg Q6H PRN IV ANXIETY Last administered on 02/26/16 02: 02; Admin Dose 0.5 MG; Start 02/24/16 at 02:00 Ondansetron HCl (Zofran Inj) 4 mg Q6H PRN IV NAUSEA AND/OR VOMITING Last administered on 03/01/16 13:17; Admin Dose 4 MG; Start 02/24/16 at 02:00 Nitroglycerin (Nitroglycerin (Sl Tab) 0.4 Mg) 1 tab Q5M PRN SL CHEST PAIN; Start 02/24/16 at 02:00 Hydralazine HCl (Apresoline) 10 mg Q6H PRN IV SBP > 160 Last administered on 05:19; Admin Dose 10 MG; Start 02/24/16 at 02:00 Labetalol HCl (Labetalol) 10 mg Q6 PRN IV ELEVATED BLOOD PRESSURE; Start at 23:00 Guaifenesin/ Dextromethorphan (Robitussin Dm Liquid Cup) 5 ml Q6 PRN PO COUGH Last administered on 02/27/16 18:12; Admin Dose 5 ML; Start 02/24/16 at 23:00 Nicotine (Nicoderm 21 Mg/ 24hr) 1 patch DAILY TRANSDERM Last administered on 08:43; Admin Dose 1 PATCH; Start 02/26/16 at 09:00 Levothyroxine Sodium 25 mcg 25 mcg DAILY@06 PO Last administered on 03/08/16 05:43; Admin Dose 25 MCG; Start 02/28/16 at 06:00 Metronidazole 100 ml @ 100 mls/hr Q6 IVPB Last administered on 03/08/16 05:43 ; Admin Dose 100 MLS/HR; Start 02/28/16 at 13:30 Propofol (Diprivan) 100 ml @ 1.692 mls/ hr Q12H IV Last administered on 05:48; Admin Dose 10.152 MLS/HR; Start 03/01/16 at 20:30 Hydromorphone HCl (Dilaudid) 0.5 mg Q3 PRN IV PAIN Last administered on 01:18; Admin Dose 0.5 MG; Start 03/02/16 at 17:00 Heparin Sodium (Porcine) 5000 unit 5,000 unit BID SC Last administered on 08:53; Admin Dose 5,000 UNIT; Start 03/02/16 at 21:30 Potassium Chloride/Dextrose/ Sod Cl 1,000 ml @ 20 mls/hr Q24H IV Last administered on 03/07/16 21:57; Admin Dose 70 MLS/HR; Start 03/05/16 at 10:00 Meropenem/Sodium Chloride (Merrem/NS) 100 ml @ 200 mls/hr Q12 IVPB Last administered on 03/08/16 08:45; Admin Dose 200 MLS/HR; Start 03/06/16 at 21:00 Vancomycin HCl (Vancomycin Oral Syringe) 250 mg Q6 PO Last administered on 03/08 05:43; Admin Dose 250 MG; Start 03/06/16 at 18:00 Fidaxomicin 200 mg 200 mg BID PO Last administered on 03/08/16 08:43; Admin Dose 200 MG; Start 03/07/16 at 21:00 Albumin Human (Albumin Human 25%) 100 ml @ 100 mls/hr Q8H IV Last administered on 03/08/16 08:44; Admin Dose 100 MLS/HR; Start 03/08/16 at 08:30 ; Stop 03/09/16 at 01:29 CHARISSA WILHELM MD Mar 08, 2016 10:17
--- NOTE | 2016-03-08 12:12 | PN ---
Date/Time of Note Date/Time of Note DATE: 03/08/16 TIME: 12:09 Assessment/Plan VTE Prophylaxis VTE Prophylaxis Intervention: other Lines/Catheters IV Catheter Type (from Nrsg): Central Line Central line still needed: Yes Urinary Cath still in place: Yes Reason Cath still needed: other (indicate) Assessment/Plan Chief Complaint/Hosp Course 1. Left video-assisted thoracic surgery, total pulmonary decortication. 2.s/p Control of chest bleeding. 3. sepsis 4 s/p fall outside 5 lung infilterate better 6 hyponatremia better 7 djd 8 ddd 9 hx htn 10 positive gold test 11 UTI 12HYPOTHYROIDISM 13 collites better 14 markos 15 atn better 16 pancolites 16 metabolic acidosis better plan labs id dr everett pain meds per pulmonary weaning kcl lasix Problems: Subjective 24 Hr Interval Summary Subjective hx not possible: other (on vent) Exam/Review of Systems Vital Signs Vitals Vital Signs Date Time Temp Pulse Resp B/P Pulse Ox O2 Delivery O2 Flow Rate FiO2 03/08/16 11:00 82 25 100 30 03/08/16 11:00 98.2 114/51 Mechanical Ventilator Intake and Output 03/07/16 03/07/16 03/08/16 15:00 23:00 07:00 Intake Total 1225.36 ml 1297.55 ml 1141.05 ml Output Total 395 ml 250 ml 180 ml Balance 830.36 ml 1047.55 ml 961.05 ml Exam Respiratory: diminished breath sounds Cardiovascular: regular rate and rhythm Gastrointestinal: bowel sounds (+), soft Extremities: edema (tr) Results Result Diagram: 03/08/16 0400 03/08/16 0400 Results 24 hrs Laboratory Tests Test 03/08/16 04:00 Anion Gap 12 Basophils # 0.0 Basophils % 0.0 Blood Morphology Comment Blood Urea Nitrogen 70 H Calcium Level 7.1 L Carbon Dioxide Level 21 Chloride Level 115 H Creatinine 1.64 H Eosinophils # 0.1 Eosinophils % 0.4 Glucose Level 117 Hematocrit 32.1 L Hemoglobin 10.5 L Lymphocytes # 0.9 Lymphocytes % 4.0 L Mean Corpuscular Hemoglobin 31.1 Mean Corpuscular Hemoglobin Concent 32.6 Mean Corpuscular Volume 95.4 Mean Platelet Volume 13.2 H Monocytes # 1.3 H Monocytes % 5.6 Neutrophils # 20.4 H Neutrophils % 90.0 H Nucleated Red Blood Cells # 0.0 Nucleated Red Blood Cells % 0.0 Platelet Count 160 Potassium Level 3.4 L Red Blood Count 3.37 L Red Cell Distribution Width 19.6 H Sodium Level 145 H White Blood Count 22.7 H Medications Medications Current Medications Lorazepam (Ativan) 0.5 mg Q6H PRN IV ANXIETY Last administered on 02/26/16 02: 02; Admin Dose 0.5 MG; Start 02/24/16 at 02:00 Ondansetron HCl (Zofran Inj) 4 mg Q6H PRN IV NAUSEA AND/OR VOMITING Last administered on 03/01/16 13:17; Admin Dose 4 MG; Start 02/24/16 at 02:00 Nitroglycerin (Nitroglycerin (Sl Tab) 0.4 Mg) 1 tab Q5M PRN SL CHEST PAIN; Start 02/24/16 at 02:00 Hydralazine HCl (Apresoline) 10 mg Q6H PRN IV SBP > 160 Last administered on 05:19; Admin Dose 10 MG; Start 02/24/16 at 02:00 Labetalol HCl (Labetalol) 10 mg Q6 PRN IV ELEVATED BLOOD PRESSURE; Start at 23:00 Guaifenesin/ Dextromethorphan (Robitussin Dm Liquid Cup) 5 ml Q6 PRN PO COUGH Last administered on 02/27/16 18:12; Admin Dose 5 ML; Start 02/24/16 at 23:00 Nicotine (Nicoderm 21 Mg/ 24hr) 1 patch DAILY TRANSDERM Last administered on 08:43; Admin Dose 1 PATCH; Start 02/26/16 at 09:00 Levothyroxine Sodium 25 mcg 25 mcg DAILY@06 PO Last administered on 03/08/16 05:43; Admin Dose 25 MCG; Start 02/28/16 at 06:00 Metronidazole 100 ml @ 100 mls/hr Q6 IVPB Last administered on 03/08/16 11:38 ; Admin Dose 100 MLS/HR; Start 02/28/16 at 13:30 Propofol (Diprivan) 100 ml @ 1.692 mls/ hr Q12H IV Last administered on 05:48; Admin Dose 10.152 MLS/HR; Start 03/01/16 at 20:30 Hydromorphone HCl (Dilaudid) 0.5 mg Q3 PRN IV PAIN Last administered on 01:18; Admin Dose 0.5 MG; Start 03/02/16 at 17:00 Heparin Sodium (Porcine) 5000 unit 5,000 unit BID SC Last administered on 08:53; Admin Dose 5,000 UNIT; Start 03/02/16 at 21:30 Potassium Chloride/Dextrose/ Sod Cl 1,000 ml @ 20 mls/hr Q24H IV Last administered on 03/07/16 21:57; Admin Dose 70 MLS/HR; Start 03/05/16 at 10:00 Meropenem/Sodium Chloride (Merrem/NS) 100 ml @ 200 mls/hr Q12 IVPB Last administered on 03/08/16 08:45; Admin Dose 200 MLS/HR; Start 03/06/16 at 21:00 Vancomycin HCl (Vancomycin Oral Syringe) 250 mg Q6 PO Last administered on 03/08 11:38; Admin Dose 250 MG; Start 03/06/16 at 18:00 Fidaxomicin 200 mg 200 mg BID PO Last administered on 03/08/16 08:43; Admin Dose 200 MG; Start 03/07/16 at 21:00 Albumin Human (Albumin Human 25%) 100 ml @ 100 mls/hr Q8H IV Last administered on 03/08/16 08:44; Admin Dose 100 MLS/HR; Start 03/08/16 at 08:30 ; Stop 03/09/16 at 01:29 REMINGTON ZELAYA MD Mar 08, 2016 12:12
[2016-03-08] MEDS: D5W-0.45 NACL + KCL 20 MEQ 1,000 ML IV SCH (12:15)
[2016-03-08] MEDS: POTASSIUM CHLORIDE 20 MEQ POWDER FOR ORAL SOLN PO SCH ×2 (12:33→20:42)
[2016-03-08] MEDS: FLUCONAZOLE 100 MG TAB PO SCH (13:27)
--- NOTE | 2016-03-08 13:50 | PN ---
DATE: 03/08/2016 SUBJECTIVE: No acute changes. No fevers. The patient is lying comfortably in bed. Temperature 98.2, pulse 85, respirations 25, blood pressure 133/52, saturation 100% on 30% FIO2. WBC 22.7, H and H 10.5 and 32.1, platelets 160, neutrophils 80. BUN 70, creatinine 1.64. MICROBIOLOGY: Sputum culture growing yeast. DIAGNOSTICS: Chest x-ray this morning revealed low lung volumes with mild bibasilar subsegmental at electasis. INDWELLINGS: Right IJ triple-lumen catheter, endotracheal tube, NG tube, Francois, rectal tube. ANTIMICROBIALS: The patient is on: 1. Meropenem day #3. 2. Oral vancomycin. 3. Dificid. 4. IV Flagyl. PHYSICAL EXAMINATION: GENERAL: This is a fragile, elderly woman who is in no distress. HEENT: Head atraumatic, normocephalic. Sclerae anicteric. Buccal mucosa dry. NECK: Supple, trachea midline. CHEST: Rise symmetrical. Breath sounds diminished at bases. HEART: S1, S2. ABDOMEN: Soft, bowel sounds present. EXTREMITIES: Without cyanosis. SKIN: With bilateral anasarca. ASSESSMENT: 1. Systemic inflammatory response syndrome with persistent leukocytosis, likely secondary to #2. 2. Pancolitis status post laparoscopic exploration on 03/01/2016. 3. Postoperative respiratory failure, likely secondary to fluid overload. 4. Status post C-spine injury secondary to fall and rib fracture resulting in pneumothorax, status post video-assisted thoracotomy with chest tube placement. 5. Acute renal failure. 6. Anemia. PLAN: Per discussion with pulmonary team, we are going to discontinue antibiotics as patient is res ponding to diuresis. We are going to keep her on Dificid, oral vancomycin and Flagyl. We are going to add antifungal coverage for the presence of yeast in her sputum. Continue management as per [facility] team and consultants. Dictated By: PHOEBE BANDA [employer]ER[employer] INTELLIGENCE MANAGER for JUAN THOMAS/NTS Conf#: [id number] DID#: [id number]
[2016-03-09] VITALS (58 sets, daily range): BP systolic 101–135; BP diastolic 41–94; PULSE 71–94; RESP 15–34
--- NOTE | 2016-03-09 01:40 | PN ---
Date/Time of Note Date/Time of Note DATE: 03/08/16 TIME: 22:38 Assessment/Plan Lines/Catheters IV Catheter Type (from [facility]): Central Line Francois in Place (from [facility]): Yes Assessment/Plan Chief Complaint/Hosp Course 1. Abdominal pain, with CT diagnosis of pancolitis, with significant leukocytosis and bandemia. s/p Lap exploration and only small mid transverse with min mottling. Bowel function. Worsening WBC after Abx stopped. -Antibiotics per ID -Judicious fluid management 2. Sepsis, multifactorial (pancolitis ? ischemic, urinary tract infection, pulmonary infiltrates, bacteremia). -Aggressive antibiotic therapy. -Judicious fluid management. -Close monitoring. 3. Renal insufficiency secondary to sepsis. Improving Cr today -Continue judicious fluid management. -Avoid nephrotoxic agents as possible. 4. Anemia, with recent hemothorax requiring VATS decortication. -Continue chest tube and monitor output. -CT surgery following. -Transfuse as needed. 5. Hypoalbuminemia. -Eventual nutritional optimization. 6. Hypernatremia -Correct with fluid management. 7. Hypertension. -Nutritional and medication optimization. 8. Hypothyroidism. -Replace hormone. 9. Hemopneumothorax, status post VATS. CT removed -followed by CT surgery. 10. Cervical spine injury, being maintained in brace by neurosurgery. 11. Hypokalemia -replete Thank you, Late enty 03/08 Problems: Subjective 24 Hr Interval Summary Leukocytosis. Continues to be intubated. No f/c. No v. Bowel function yesterday. Bloated. No cough. No sz. No rash. Exam/Review of Systems Vital Signs Vitals Vital Signs Date Time Temp Pulse Resp B/P Pulse Ox O2 Delivery O2 Flow Rate FiO2 03/09/16 00:30 76 21 120/56 100 03/09/16 00:00 98.2 Mechanical Ventilator 03/08/16 23:11 30 Intake and Output 03/08/16 03/08/16 03/09/16 15:00 23:00 07:00 Intake Total 981.368 ml 825.304 ml 35 ml Output Total 575 ml 1120 ml 75 ml Balance 406.368 ml -294.696 ml -40 ml Exam Free Text/Dictation GENERAL: Ventilated, NAD HEENT: Pupils equal, reactive. No scleral icterus. Mucous membranes are somewhat dry. ETT NECK: No crepitus. No JVD. PULMONARY: Minimally coarse. ABDOMEN: Diffuse tenderness, not rigid, distended EXTREMITIES: Trace edema. VASCULAR: Capillary refill is 2 seconds. NEUROLOGIC: Ventilated and sedated SKIN: No rashes/jaundice. PSYCH: Ventilated Results Result Diagram: 03/08/1639903/08/16399 CHRISTIANO JENNINGS MD Mar 09, 2016 01:40
[2016-03-09] MEDS: PROPOFOL 100 ML IV SCH ×4 (02:09→23:26)
[2016-03-09] MEDS: FUROSEMIDE 40 MG INJ IV SCH ×2 (05:42→19:01)
[2016-03-09] MEDS: metroNIDAZOLE 500 MG/NS (PMX) 100 ML IVPB SCH ×4 (05:42→23:31)
[2016-03-09] MEDS: LEVOTHYROXINE 25 MCG TAB PO SCH (05:42)
[2016-03-09] MEDS: VANCOMYCIN HCL 250 MG/5ML POSYG PO SCH ×4 (05:52→23:35)
[2016-03-09 06:25] LABS: BASOPHILS % 0.1 % (0.0-2.0); EOSINOPHILS # 0.1 10^3/ul (0.0-0.5); EOSINOPHILS % 0.4 % (0.0-7.0); HEMATOCRIT 25.8 % (37.0-47.0); HEMOGLOBIN 8.8 g/dl (12.0-16.0); LYMPHOCYTES # 0.7 10^3/ul (0.8-2.9); LYMPHOCYTES % 4.2 % (15.0-51.0); MEAN CORPUSCULAR HGB CONC 33.9 g/dl (32.0-37.0); MEAN CORPUSCULAR VOLUME 94.5 fl (82.0-101.0); MEAN PLATELET VOLUME 12.3 fl (7.4-10.4); MONOCYTES % 6.1 % (0.0-11.0); NEUTROPHILS % 89.2 % (39.0-77.0); PLATELET COUNT 157 10^3/UL (140-440); RED BLOOD COUNT 2.73 10^6/ul (4.20-5.40); RED CELL DISTRIBUTION WIDTH 19.7 % (11.5-14.5); UNCORRECTED WBC 15.7 10^3/ul (4.8-10.8); WHITE BLOOD COUNT 15.7 10^3/ul (4.8-10.8)
[2016-03-09 06:49] LABS: CONDITION 1; LH ANALYZER COMMENTS 1; SUSPECT 1
[2016-03-09 06:54] LABS: ALBUMIN 2.3 g/dl (3.3-4.9)
[2016-03-09 06:56] LABS: CREATININE 1.4 mg/dl (0.44-1.00)
[2016-03-09 06:57] LABS: TOTAL PROTEIN 4.4 g/dl (6.1-8.1)
[2016-03-09 06:58] LABS: ALBUMIN/GLOBULIN RATIO 1.09; CALCIUM 7.6 mg/dl (8.4-10.2); POTASSIUM 2.8 mmol/L (3.5-5.1)
[2016-03-09] MEDS: POTASSIUM CHLORIDE 20 MEQ POWDER FOR ORAL SOLN PO PRN (07:02)
--- NOTE | 2016-03-09 08:43 | CONS ---
Date/Time of Note Date/Time of Note DATE: 03/09/16 TIME: 08:36 Assessment/Plan Assessment/Plan Additional Assessment/Plan Assessment and recommendations; 1. Patient admitted with bowel obstruction underwent laparotomy also sustained a left hemopneumothorax with significant radiological improvement chest x-ray was reviewed from yesterday afternoon which is showing marked improvement in bilateral pulmonary edema. Next 2. Renal insufficiency with improving serum creatinine. 3. Significant leukocytosis with marked improvement as well. 4. Currently on Lasix 40 mg twice a day with albumin with reduction in generalized anasarca as well. Next 5. Colitis currently on Flagyl. Continue Lasix for now continue current ventilator settings for sedation to assess mental status. Continue supportive care. We will currently maintain on SIMV with a rate of 14 pressure support and tidal volume 530% FiO2. I did have a detailed discussion the patient's son at bedside and answered all his questions. Consultation Date/Type/Reason Admit Date/Time Feb 24, 2016 at 04:06 Type of Consultation: pulmonary 24 HR Interval Summary Free Text/Dictation Patient's condition is stable patient has remained hemodynamically stable. No new events reported overnight. Currently despite minimal sedation patient is mildly arousable. Next General exam; elderly woman or intubated awake currently in no distress. Exam/Review of Systems Vital Signs Vitals Vital Signs Date Time Temp Pulse Resp B/P Pulse Ox O2 Delivery O2 Flow Rate FiO2 03/09/16 08:00 98.5 83 28 120/53 100 Mechanical Ventilator 03/09/16 05:29 30 Intake and Output 03/08/16 03/08/16 03/09/16 15:00 23:00 07:00 Intake Total 981.368 ml 885.304 ml 820 ml Output Total 575 ml 1120 ml 775 ml Balance 406.368 ml -234.696 ml 45 ml Exam HEENT examination supple neck, no JVD, no lymphadenopathy, or intubated. Neck is supple. Chest examination; diminished but clear breath sounds bilaterally. S1-S2 audible no murmurs regular rhythm. Abdomen; soft with decreased distention, multiple well-healed scars are present. Bowel sounds are audible. Extremity examination reduction in generalized anasarca. Pulses 1+ bilaterally. CLIENT DEVELOPMENT CONSULTANT examination; she currently is mildly sedated. Results Result Diagram: 03/09/16 0500 1/26/17 0500 Results 24 hrs Laboratory Tests Test 03/09/16 05:00 Alanine Aminotransferase (ALT/SGPT) 46 Albumin 2.3 L Albumin/Globulin Ratio 1.09 Alkaline Phosphatase 253 H Anion Gap 15 Aspartate Amino Transf (AST/SGOT) 44 Basophils # 0.0 Basophils % 0.1 Blood Morphology Comment Blood Urea Nitrogen 66 H Calcium Level 7.6 L Carbon Dioxide Level 22 Chloride Level 112 H Creatinine 1.40 H Direct Bilirubin 0.00 Eosinophils # 0.1 Eosinophils % 0.4 Globulin 2.10 Glucose Level 99 Hematocrit 25.8 L Hemoglobin 8.8 L Indirect Bilirubin 0.0 Lymphocytes # 0.7 L Lymphocytes % 4.2 L Mean Corpuscular Hemoglobin 32.0 Mean Corpuscular Hemoglobin Concent 33.9 Mean Corpuscular Volume 94.5 Mean Platelet Volume 12.3 H Monocytes # 1.0 H Monocytes % 6.1 Neutrophils # 14.0 H Neutrophils % 89.2 H Nucleated Red Blood Cells # 0.0 Nucleated Red Blood Cells % 0.0 Platelet Count 157 Potassium Level 2.8 *L Red Blood Count 2.73 L Red Cell Distribution Width 19.7 H Sodium Level 146 H Total Bilirubin 0.0 L Total Protein 4.4 L White Blood Count 15.7 #H Medications Medications Current Medications Lorazepam (Ativan) 0.5 mg Q6H PRN IV ANXIETY Last administered on 02/26/16 02: 02; Admin Dose 0.5 MG; Start 02/24/16 at 02:00 Ondansetron HCl (Zofran Inj) 4 mg Q6H PRN IV NAUSEA AND/OR VOMITING Last administered on 03/01/16 13:17; Admin Dose 4 MG; Start 02/24/16 at 02:00 Nitroglycerin (Nitroglycerin (Sl Tab) 0.4 Mg) 1 tab Q5M PRN SL CHEST PAIN; Start 02/24/16 at 02:00 Hydralazine HCl (Apresoline) 10 mg Q6H PRN IV SBP > 160 Last administered on 05:19; Admin Dose 10 MG; Start 02/24/16 at 02:00 Labetalol HCl (Labetalol) 10 mg Q6 PRN IV ELEVATED BLOOD PRESSURE; Start at 23:00 Guaifenesin/ Dextromethorphan (Robitussin Dm Liquid Cup) 5 ml Q6 PRN PO COUGH Last administered on 02/27/16 18:12; Admin Dose 5 ML; Start 02/24/16 at 23:00 Nicotine (Nicoderm 21 Mg/ 24hr) 1 patch DAILY TRANSDERM Last administered on 08:43; Admin Dose 1 PATCH; Start 02/26/16 at 09:00 Levothyroxine Sodium 25 mcg 25 mcg DAILY@06 PO Last administered on 03/09/16 05:42; Admin Dose 25 MCG; Start 02/28/16 at 06:00 Metronidazole 100 ml @ 100 mls/hr Q6 IVPB Last administered on 03/09/16 05:42 ; Admin Dose 100 MLS/HR; Start 02/28/16 at 13:30 Propofol (Diprivan) 100 ml @ 1.692 mls/ hr Q12H IV Last administered on 02:09; Admin Dose 10.152 MLS/HR; Start 03/01/16 at 20:30 Hydromorphone HCl (Dilaudid) 0.5 mg Q3 PRN IV PAIN Last administered on 01:18; Admin Dose 0.5 MG; Start 03/02/16 at 17:00 Heparin Sodium (Porcine) 5000 unit 5,000 unit BID SC Last administered on 20:43; Admin Dose 5,000 UNIT; Start 03/02/16 at 21:30 Potassium Chloride/Dextrose/ Sod Cl (D5-1/2ns + KCl 20 Meq) 1,000 ml @ 20 mls/ hr Q24H IV Last administered on 03/08/16 12:15; Admin Dose 20 MLS/HR; Start at 10:00 Vancomycin HCl (Vancomycin Oral Syringe) 250 mg Q6 PO Last administered on 03/09 05:52; Admin Dose 250 MG; Start 03/06/16 at 18:00 Fidaxomicin (Dificid) 200 mg BID PO Last administered on 03/08/16 20:43; Admin Dose 200 MG; Start 03/07/16 at 21:00 Potassium Chloride (Potassium Chloride Pwd/Soln) 20 meq BID PO Last administered on 03/08/16 20:42; Admin Dose 20 MEQ; Start 03/08/16 at 12:30 Fluconazole (Diflucan) 100 mg DAILY PO Last administered on 03/08/16t 13:27; Admin Dose 100 MG; Start 03/08/16 at 13:00 GAIL SPENCER Mar 09, 2016 08:43
[2016-03-09] MEDS: NICOTINE (21 MG/24 HR) PATCH TRANSDERM SCH (09:41)
[2016-03-09] MEDS: FIDAXOMICIN 200 MG TABLET PO SCH ×2 (09:41→21:31)
[2016-03-09] MEDS: POTASSIUM CHLORIDE 20 MEQ POWDER FOR ORAL SOLN PO SCH ×2 (09:41→21:38)
[2016-03-09] MEDS: FLUCONAZOLE 100 MG TAB PO SCH (09:41)
[2016-03-09] MEDS: HEPARIN 5,000 UNIT/0.5 ML SYG SC SCH ×2 (09:43→21:33)
[2016-03-09] MEDS: HYDROmorphONE 1 MG/ML SYG IV PRN ×2 (11:23→17:32)
[2016-03-09] MEDS ORDERED: POTASSIUM CHLORIDE 30 MEQ in DEXTROSE 5% 250 ML IVPB ONE (12:00)
--- NOTE | 2016-03-09 12:34 | PN ---
DATE: SUBJECTIVE: No acute changes. The patient is lying comfortably in bed, intubated, sedated, in no d istress. No fevers. LABORATORY DATA: WBC today decreased to 15.7, neutrophils went down to 89.2. BUN 66, creatinine 1. 40. MICROBIOLOGY: Urine culture growing yeast. Blood culture remains negative since 03/07/2016. Sputu m culture grew Ann glabrata. ANTIMICROBIALS: The patient is on: 1. Fluconazole. 2. Oral vancomycin. 3. Dificid. 4. IV Flagyl. INDWELLINGS: Endotracheal tube, NG tube, right IJ triple-lumen catheter, Francois catheter. PHYSICAL EXAMINATION: GENERAL: Fragile, elderly woman who is lying comfortably in bed. HEENT: Head atraumatic, normocephalic. Sclerae anicteric. Buccal mucosa dry. NECK: Supple. Tracheostomy midline. CHEST: Rise symmetrical. Breath sounds diminished to bases. HEART: S1, S2. ABDOMEN: Soft. Bowel sounds present. EXTREMITIES: Without cyanosis. Bilateral trace edema. SKIN: Positive for anasarca. ASSESSMENT 1. Leukocytosis, resolving. 2. Pancolitis. 3. Urinary tract infection. 4. Respiratory failure with sputum culture growing yeast. 5. Status post laparoscopic exploration on 03/01/2016 with cultures and pathology being negative. 6. Status post C-spine injury secondary to fall with rib fracture resolving and pneumothorax, resol roshni status post video-assisted thoracic surgery with chest tube placement. 7. Acute renal failure. PLAN: The patient remains stable. We are going to discontinue fluconazole and start her on voricon azole. Continue all other antibiotics and follow recommendation of specialists. Dictated By: PHOEBE BANDA CLOTHING SORTER for JUAN THOMAS/JOSUÉ Conf#: [id number] DID#: [id number]
[2016-03-09] MEDS: D5W-0.45 NACL + KCL 20 MEQ 1,000 ML IV SCH (12:39)
--- NOTE | 2016-03-09 13:32 | PN ---
Date/Time of Note Date/Time of Note DATE: 03/09/16 TIME: 13:29 Assessment/Plan VTE Prophylaxis VTE Prophylaxis Intervention: other Lines/Catheters IV Catheter Type (from Nrsg): Central Line Central line still needed: Yes Urinary Cath still in place: Yes Reason Cath still needed: other (indicate) Assessment/Plan Chief Complaint/Hosp Course 1. Left video-assisted thoracic surgery, total pulmonary decortication. 2.s/p Control of chest bleeding. 3. sepsis 4 s/p fall outside 5 lung infilterate better 6 hyponatremia better 7 djd 8 ddd 9 hx htn 10 positive gold test 11 UTI 12HYPOTHYROIDISM 13 collites better 14 markos 15 atn better 16 pancolites 16 metabolic acidosis better 17 hypokalemia plan labs id dr everett pain meds per pulmonary weaning kcl lasix Problems: Subjective 24 Hr Interval Summary Subjective hx not possible: other (on vent) Constitutional: no complaints ENT: no complaints Respiratory: no complaints Cardiovascular: no complaints Exam/Review of Systems Vital Signs Vitals Vital Signs Date Time Temp Pulse Resp B/P Pulse Ox O2 Delivery O2 Flow Rate FiO2 03/09/16 13:00 81 25 111/46 100 Mechanical Ventilator 03/09/16 12:00 30 03/09/16 12:00 98.7 Intake and Output 03/08/16 03/08/16 03/09/16 15:00 23:00 07:00 Intake Total 981.368 ml 885.304 ml 950.152 ml Output Total 575 ml 1120 ml 775 ml Balance 406.368 ml -234.696 ml 175.152 ml Exam Neck: supple Respiratory: clear to auscultation Cardiovascular: regular rate and rhythm Gastrointestinal: soft Musculoskeletal: nl extremities to inspection Extremities: normal pulses Results Result Diagram: 03/09/16 0500 03/09/16 0500 Results 24 hrs Laboratory Tests Test 03/09/16 05:00 Alanine Aminotransferase (ALT/SGPT) 46 Albumin 2.3 L Albumin/Globulin Ratio 1.09 Alkaline Phosphatase 253 H Anion Gap 15 Aspartate Amino Transf (AST/SGOT) 44 Basophils # 0.0 Basophils % 0.1 Blood Morphology Comment Blood Urea Nitrogen 66 H Calcium Level 7.6 L Carbon Dioxide Level 22 Chloride Level 112 H Creatinine 1.40 H Direct Bilirubin 0.00 Eosinophils # 0.1 Eosinophils % 0.4 Globulin 2.10 Glucose Level 99 Hematocrit 25.8 L Hemoglobin 8.8 L Indirect Bilirubin 0.0 Lymphocytes # 0.7 L Lymphocytes % 4.2 L Mean Corpuscular Hemoglobin 32.0 Mean Corpuscular Hemoglobin Concent 33.9 Mean Corpuscular Volume 94.5 Mean Platelet Volume 12.3 H Monocytes # 1.0 H Monocytes % 6.1 Neutrophils # 14.0 H Neutrophils % 89.2 H Nucleated Red Blood Cells # 0.0 Nucleated Red Blood Cells % 0.0 Platelet Count 157 Potassium Level 2.8 *L Red Blood Count 2.73 L Red Cell Distribution Width 19.7 H Sodium Level 146 H Total Bilirubin 0.0 L Total Protein 4.4 L White Blood Count 15.7 #H Medications Medications Current Medications Lorazepam (Ativan) 0.5 mg Q6H PRN IV ANXIETY Last administered on 02/26/16 02: 02; Admin Dose 0.5 MG; Start 02/24/16 at 02:00 Ondansetron HCl (Zofran Inj) 4 mg Q6H PRN IV NAUSEA AND/OR VOMITING Last administered on 03/01/16 13:17; Admin Dose 4 MG; Start 02/24/16 at 02:00 Nitroglycerin (Nitroglycerin (Sl Tab) 0.4 Mg) 1 tab Q5M PRN SL CHEST PAIN; Start 02/24/16 at 02:00 Hydralazine HCl (Apresoline) 10 mg Q6H PRN IV SBP > 160 Last administered on 05:19; Admin Dose 10 MG; Start 02/24/16 at 02:00 Labetalol HCl (Labetalol) 10 mg Q6 PRN IV ELEVATED BLOOD PRESSURE; Start at 23:00 Guaifenesin/ Dextromethorphan (Robitussin Dm Liquid Cup) 5 ml Q6 PRN PO COUGH Last administered on 02/27/16 18:12; Admin Dose 5 ML; Start 02/24/16 at 23:00 Nicotine (Nicoderm 21 Mg/ 24hr) 1 patch DAILY TRANSDERM Last administered on 09:41; Admin Dose 1 PATCH; Start 02/26/16 at 09:00 Levothyroxine Sodium 25 mcg 25 mcg DAILY@06 PO Last administered on 03/09/16 05:42; Admin Dose 25 MCG; Start 02/28/16 at 06:00 Metronidazole 100 ml @ 100 mls/hr Q6 IVPB Last administered on 03/09/16 12:39 ; Admin Dose 100 MLS/HR; Start 02/28/16 at 13:30 Propofol (Diprivan) 100 ml @ 1.692 mls/ hr Q12H IV Last administered on 09:04; Admin Dose 10.152 MLS/HR; Start 03/01/16 at 20:30 Hydromorphone HCl (Dilaudid) 0.5 mg Q3 PRN IV PAIN Last administered on 11:23; Admin Dose 0.5 MG; Start 03/02/16 at 17:00 Heparin Sodium (Porcine) 5000 unit 5,000 unit BID SC Last administered on 09:43; Admin Dose 5,000 UNIT; Start 03/02/16 at 21:30 Potassium Chloride/Dextrose/ Sod Cl (D5-1/2ns + KCl 20 Meq) 1,000 ml @ 20 mls/ hr Q24H IV Last administered on 03/09/16 12:39; Admin Dose 20 MLS/HR; Start at 10:00 Vancomycin HCl (Vancomycin Oral Syringe) 250 mg Q6 PO Last administered on 03/09 12:39; Admin Dose 250 MG; Start 03/06/16 at 18:00 Fidaxomicin (Dificid) 200 mg BID PO Last administered on 03/09/16 09:41; Admin Dose 200 MG; Start 03/07/16 at 21:00 Potassium Chloride 20 meq 20 meq BID PO Last administered on 03/09/16 09:41; Admin Dose 20 MEQ; Start 03/08/16 at 12:30 Potassium Chloride/Dextrose (KCl/D5W) 265 ml @ 88.333 mls/ hr ONCE ONCE IVPB Last administered on 03/09/16 12:39; Admin Dose 88.333 MLS/HR; Start 03/09/16 at 12:00; Stop 03/09/16 at 14:59 Voriconazole (Vfend) 200 mg BID PO ; Start 03/09/16 at 21:00 REMINGTON ZELAYA MD Mar 09, 2016 13:32
[2016-03-09] MEDS: VORICONAZOLE 200 MG TAB PO SCH (21:33)
--- NOTE | 2016-03-09 21:39 | PN ---
Date/Time of Note Date/Time of Note DATE: 03/09/16 TIME: 21:36 Assessment/Plan Lines/Catheters IV Catheter Type (from Nrs): Central Line Francois in Place (from Nrs): Yes Assessment/Plan Assessment/Plan [facility] Progress Note (covering for Dr. Raza) Date of Service: 03/09/16 Today's Impression & Plan: Overall semi stable without any indication for acute surgical intervention. Multiple medical issues. Seems improved after restarting the antimicrobials. Discussed with her son and answered all questions. With above assessment, I've recommended the following for today: 1. Cont current management 2. Wean to extubate when clinically improved 3. Will follow Thank you again for your great care of this very pleasant patient and wonderful family. If there are any questions, please feel free to call me at [phone]. TOTAL VISIT TIME: 20 minutes of which more than half was spent in [id number] discussion with the patient, possibly including family, as well as coordination of care between multiple physicians and providers. Disclaimer: Inadvertent spelling or grammatical errors are likely due to EHR/ dictation software use and do not reflect on the overall quality of patient care. Subjective: No major events; intubated and sedated and unresponsive Objective: Vitals: See below Exam: GENERAL: On exam, the patient was laying in bed and appeared to be comfortable and in no acute distress. Eyes closed and unresponsive. PERRL. ABDOMEN: Soft, nontender and mildly distended. Incisions are clean, dry and intact without any evidence of erythema, edema, discharge, or hernia. There are no peritoneal signs or guarding. SKIN: Skin appears to be pink and feels warm to touch. NEUROLOGIC: Patient is not awake, not alert, and does not follow commands appropriately. Exam/Review of Systems Vital Signs Vitals Vital Signs Date Time Temp Pulse Resp B/P Pulse Ox O2 Delivery O2 Flow Rate FiO2 03/09/16 19:33 83 33 100 30 03/09/16 19:30 117/56 03/09/16 19:00 Mechanical Ventilator 03/09/16 16:00 98.7 Intake and Output 03/08/16 03/08/16 03/09/16 15:00 23:00 07:00 Intake Total 981.368 ml 885.304 ml 950.152 ml Output Total 575 ml 1120 ml 775 ml Balance 406.368 ml -234.696 ml 175.152 ml Results Result Diagram: 03/09/16 0500 03/09/162002 RACHEL BLAKE M.D. Mar 09, 2016 21:39
[2016-03-10] VITALS (39 sets, daily range): BP systolic 93–131; BP diastolic 43–108; PULSE 84–111; RESP 10–35
[2016-03-10 04:42] LABS: BASOPHILS % 0.3 % (0.0-2.0); EOSINOPHILS % 0.2 % (0.0-7.0); HEMATOCRIT 29.4 % (37.0-47.0); HEMOGLOBIN 9.7 g/dl (12.0-16.0); LYMPHOCYTES # 0.8 10^3/ul (0.8-2.9); LYMPHOCYTES % 6.1 % (15.0-51.0); MEAN CORPUSCULAR HEMOGLOBIN 31.1 pg (29.0-33.0); MEAN CORPUSCULAR VOLUME 94.2 fl (82.0-101.0); MEAN PLATELET VOLUME 12.2 fl (7.4-10.4); MONOCYTE # 0.9 10^3/ul (0.3-0.9); MONOCYTES % 7.2 % (0.0-11.0); NEUTROPHILS % 86.2 % (39.0-77.0); PLATELET COUNT 189 10^3/UL (140-440); RED BLOOD COUNT 3.12 10^6/ul (4.20-5.40); RED CELL DISTRIBUTION WIDTH 19.5 % (11.5-14.5); UNCORRECTED WBC 12.8 10^3/ul (4.8-10.8); WHITE BLOOD COUNT 12.8 10^3/ul (4.8-10.8)
[2016-03-10 04:50] LABS: CONDITION 1; LH ANALYZER COMMENTS 1; SUSPECT 1
[2016-03-10 05:03] LABS: POTASSIUM 3.7 mmol/L (3.5-5.1)
[2016-03-10 05:06] LABS: CREATININE 1.28 mg/dl (0.44-1.00)
[2016-03-10 05:07] LABS: CALCIUM 7.5 mg/dl (8.4-10.2)
[2016-03-10] MEDS: PROPOFOL 100 ML IV SCH (05:32)
[2016-03-10] MEDS: FUROSEMIDE 40 MG INJ IV SCH ×2 (05:56→17:27)
[2016-03-10] MEDS: VANCOMYCIN HCL 250 MG/5ML POSYG PO SCH ×4 (05:56→23:44)
[2016-03-10] MEDS: metroNIDAZOLE 500 MG/NS (PMX) 100 ML IVPB SCH ×4 (05:56→23:44)
[2016-03-10] MEDS: LEVOTHYROXINE 25 MCG TAB PO SCH (05:56)
--- NOTE | 2016-03-10 06:56 | CONS ---
Date/Time of Note Date/Time of Note DATE: 03/10/16 TIME: 06:54 Assessment/Plan Assessment/Plan Additional Assessment/Plan Additional Assessment/Plan dditional Assessment/Plan 1. Pancolitis, c.difficile negative,no infarct on laparotomy exam,culture,wbc in stool negative 2. Fracture of the ribs. 3. Pneumothorax status post chest tube placement. 4. History of nicotine addiction. 5. Cervical spine injury. 6. History of fall. 7. Peripheral arterial disease. 8. Mild elevation of alkaline phosphatase, most probably related to alcoholic liver disease. 9. Anemia. 10. Chronic kidney disease, worsening. 11.s/p exploratory laparotomy,no bowel resection 12.respiratory failure 13. renal failure,improving 14 steatohepatitis 15leucocytosis,panculture done,improving PLAN: 1. At this point, she is on Voriconazole and vancomycin and Flagyl. also on dificid 2. feeding as per surgeon 3. Monitor WBC count closely. 4. continue post op care,so far no stool was sent for c.difficile 5. Stool for Clostridium difficile toxin,negative. 6. On antibiotic as per Infectious Disease. 7.nephro at 35 cc/hr. Consultation Date/Type/Reason Admit Date/Time Feb 24, 2016 at 04:06 Type of Consultation: pulmonary 24 HR Interval Summary Subjective hx not possible: pt critical Constitutional: improved, no complaints Exam/Review of Systems Vital Signs Vitals Vital Signs Date Time Temp Pulse Resp B/P Pulse Ox O2 Delivery O2 Flow Rate FiO2 03/10/16 06:30 93 30 112/53 100 03/10/16 06:00 Mechanical Ventilator 03/10/16 05:04 30 03/10/16 04:00 98.9 Intake and Output 03/09/16 03/09/16 03/10/16 15:00 23:00 07:00 Intake Total 1095.982 ml 886.122 ml 652.2 ml Output Total 835 ml 1485 ml 665 ml Balance 260.982 ml -598.878 ml -12.8 ml Exam Constitutional: alert, oriented, well developed Psych: nl mood/affect, no complaints Head: atraumatic, normocephalic Eyes: EOMI, PERRL, nl conjunctiva, nl lids, nl sclera ENMT: nl external ears & nose, nl lips & teeth, nl nasal mucosa & septum Neck: non-tender, supple Respiratory: clear to auscultation, normal air movement Cardiovascular: nl pulses, regular rate and rhythm Gastrointestinal: nl liver, spleen, non-tender, soft Musculoskeletal: nl extremities to inspection, nl gait and stance Extremities: normal pulses Neurological: MANAGER ENVIRONMENTAL II-XII intact, nl mental status, nl speech, nl strength Skin: nl turgor, No rash or lesions Lymph: nl lymph nodes Results Result Diagram: 03/10/16 0400 03/10/16 0400 Results 24 hrs Laboratory Tests Test 03/09/16 20:03 03/10/16 04:00 Potassium Level 3.6 3.7 Anion Gap 13 Basophils # 0.0 Basophils % 0.3 Blood Morphology Comment Blood Urea Nitrogen 64 H Calcium Level 7.5 L Carbon Dioxide Level 22 Chloride Level 115 H Creatinine 1.28 H Eosinophils # 0.0 Eosinophils % 0.2 Glucose Level 105 Hematocrit 29.4 L Hemoglobin 9.7 L Lymphocytes # 0.8 Lymphocytes % 6.1 L Mean Corpuscular Hemoglobin 31.1 Mean Corpuscular Hemoglobin Concent 33.0 Mean Corpuscular Volume 94.2 Mean Platelet Volume 12.2 H Monocytes # 0.9 Monocytes % 7.2 Neutrophils # 11.0 H Neutrophils % 86.2 H Nucleated Red Blood Cells # 0.0 Nucleated Red Blood Cells % 0.0 Platelet Count 189 # Red Blood Count 3.12 L Red Cell Distribution Width 19.5 H Sodium Level 146 H White Blood Count 12.8 H Medications Medications Current Medications Lorazepam (Ativan) 0.5 mg Q6H PRN IV ANXIETY Last administered on 02/26/16 02: 02; Admin Dose 0.5 MG; Start 02/24/16 at 02:00 Ondansetron HCl (Zofran Inj) 4 mg Q6H PRN IV NAUSEA AND/OR VOMITING Last administered on 03/01/16 13:17; Admin Dose 4 MG; Start 02/24/16 at 02:00 Nitroglycerin (Nitroglycerin (Sl Tab) 0.4 Mg) 1 tab Q5M PRN SL CHEST PAIN; Start 02/24/16 at 02:00 Hydralazine HCl (Apresoline) 10 mg Q6H PRN IV SBP > 160 Last administered on 05:19; Admin Dose 10 MG; Start 02/24/16 at 02:00 Labetalol HCl (Labetalol) 10 mg Q6 PRN IV ELEVATED BLOOD PRESSURE; Start at 23:00 Guaifenesin/ Dextromethorphan (Robitussin Dm Liquid Cup) 5 ml Q6 PRN PO COUGH Last administered on 02/27/16 18:12; Admin Dose 5 ML; Start 02/24/16 at 23:00 Nicotine (Nicoderm 21 Mg/ 24hr) 1 patch DAILY TRANSDERM Last administered on 09:41; Admin Dose 1 PATCH; Start 02/26/16 at 09:00 Levothyroxine Sodium 25 mcg 25 mcg DAILY@06 PO Last administered on 03/10/16 05:56; Admin Dose 25 MCG; Start 02/28/16 at 06:00 Metronidazole 100 ml @ 100 mls/hr Q6 IVPB Last administered on 03/10/16 05:56 ; Admin Dose 100 MLS/HR; Start 02/28/16 at 13:30 Propofol (Diprivan) 100 ml @ 1.692 mls/ hr Q12H IV Last administered on 05:32; Admin Dose 13.536 MLS/HR; Start 03/01/16 at 20:30 Hydromorphone HCl (Dilaudid) 0.5 mg Q3 PRN IV PAIN Last administered on 17:32; Admin Dose 0.5 MG; Start 03/02/16 at 17:00 Heparin Sodium (Porcine) 5000 unit 5,000 unit BID SC Last administered on 21:33; Admin Dose 5,000 UNIT; Start 03/02/16 at 21:30 Potassium Chloride/Dextrose/ Sod Cl (D5-1/2ns + KCl 20 Meq) 1,000 ml @ 20 mls/ hr Q24H IV Last administered on 03/09/16 12:39; Admin Dose 20 MLS/HR; Start at 10:00 Vancomycin HCl (Vancomycin Oral Syringe) 250 mg Q6 PO Last administered on 03/10 05:56; Admin Dose 250 MG; Start 03/06/16 at 18:00 Fidaxomicin (Dificid) 200 mg BID PO Last administered on 1/26/17at 21:31; Admin Dose 200 MG; Start 03/07/16 at 21:00 Potassium Chloride (Potassium Chloride Pwd/Soln) 20 meq BID PO Last administered on 03/09/16 21:38; Admin Dose 20 MEQ; Start 03/08/16 at 12:30 Voriconazole (Vfend) 200 mg BID PO Last administered on 03/09/16 21:33; Admin Dose 200 MG; Start 03/09/16 at 21:00 CHARISSA WILHELM MD Mar 10, 2016 06:56
--- NOTE | 2016-03-10 07:22 | CONS ---
Date/Time of Note Date/Time of Note DATE: 03/10/16 TIME: 07:19 Assessment/Plan Assessment/Plan Additional Assessment/Plan Assessment and recommendations; next 1. Patient admitted with respiratory failure due to small bowel obstruction status post laparotomy. Next 2. Colitis currently on Flagyl. Next 3. Renal insufficiency with continually improving renal function. 4. Leukocytosis with interval improvement as well 5. Enlarged edema with fluid overload improved on Lasix and albumin. Continue current later settings, antibiotics. Other supportive measures. Stop sedation again to assess mental status. When the patient is off sedative effect should be evaluated for possible weaning from mechanical ventilation. Consultation Date/Type/Reason Admit Date/Time Feb 24, 2016 at 04:06 Type of Consultation: pulmonary 24 HR Interval Summary Free Text/Dictation Patient condition remains stable. Patient has remained hemodynamically stable. No untoward events reported. General examination; elderly lady, or intubated, sedated currently in no distress. Exam/Review of Systems Vital Signs Vitals Vital Signs Date Time Temp Pulse Resp B/P Pulse Ox O2 Delivery O2 Flow Rate FiO2 03/10/16 06:30 93 30 112/53 100 03/10/16 06:00 Mechanical Ventilator 03/10/16 05:04 30 03/10/16 04:00 98.9 Intake and Output 03/09/16 03/09/16 03/10/16 15:00 23:00 07:00 Intake Total 1095.982 ml 886.122 ml 786.2 ml Output Total 835 ml 1485 ml 665 ml Balance 260.982 ml -598.878 ml 121.2 ml Exam HEENT examination; supple neck, no JVD, no lymphadenopathy. Orally intubated. Small pupils bilaterally. Supple neck. No lymphadenopathy. Chest examination; clear to auscultation bilaterally, S1-S2 audible no murmurs regular rhythm. Abdomen examination soft, with decreased abdominal wall edema. Bowel sounds audible. Multiple well-healed scars are present. Extremities; reduction in generalized anasarca still +1. Pulses 1+ bilaterally. PRIZE JACKER examination; patient currently is sedated. Results Result Diagram: 03/10/16 0400 03/10/16 0400 Results 24 hrs Laboratory Tests Test 03/09/16 20:03 03/10/16 04:00 Potassium Level 3.6 3.7 Anion Gap 13 Basophils # 0.0 Basophils % 0.3 Blood Morphology Comment Blood Urea Nitrogen 64 H Calcium Level 7.5 L Carbon Dioxide Level 22 Chloride Level 115 H Creatinine 1.28 H Eosinophils # 0.0 Eosinophils % 0.2 Glucose Level 105 Hematocrit 29.4 L Hemoglobin 9.7 L Lymphocytes # 0.8 Lymphocytes % 6.1 L Mean Corpuscular Hemoglobin 31.1 Mean Corpuscular Hemoglobin Concent 33.0 Mean Corpuscular Volume 94.2 Mean Platelet Volume 12.2 H Monocytes # 0.9 Monocytes % 7.2 Neutrophils # 11.0 H Neutrophils % 86.2 H Nucleated Red Blood Cells # 0.0 Nucleated Red Blood Cells % 0.0 Platelet Count 189 # Red Blood Count 3.12 L Red Cell Distribution Width 19.5 H Sodium Level 146 H White Blood Count 12.8 H Medications Medications Current Medications Lorazepam (Ativan) 0.5 mg Q6H PRN IV ANXIETY Last administered on 02/26/16 02: 02; Admin Dose 0.5 MG; Start 02/24/16 at 02:00 Ondansetron HCl (Zofran Inj) 4 mg Q6H PRN IV NAUSEA AND/OR VOMITING Last administered on 03/01/16 13:17; Admin Dose 4 MG; Start 02/24/16 at 02:00 Nitroglycerin (Nitroglycerin (Sl Tab) 0.4 Mg) 1 tab Q5M PRN SL CHEST PAIN; Start 02/24/16 at 02:00 Hydralazine HCl (Apresoline) 10 mg Q6H PRN IV SBP > 160 Last administered on 05:19; Admin Dose 10 MG; Start 02/24/16 at 02:00 Labetalol HCl (Labetalol) 10 mg Q6 PRN IV ELEVATED BLOOD PRESSURE; Start at 23:00 Guaifenesin/ Dextromethorphan (Robitussin Dm Liquid Cup) 5 ml Q6 PRN PO COUGH Last administered on 02/27/16 18:12; Admin Dose 5 ML; Start 02/24/16 at 23:00 Nicotine (Nicoderm 21 Mg/ 24hr) 1 patch DAILY TRANSDERM Last administered on 09:41; Admin Dose 1 PATCH; Start 02/26/16 at 09:00 Levothyroxine Sodium 25 mcg 25 mcg DAILY@06 PO Last administered on 03/10/16 05:56; Admin Dose 25 MCG; Start 02/28/16 at 06:00 Metronidazole 100 ml @ 100 mls/hr Q6 IVPB Last administered on 03/10/16 05:56 ; Admin Dose 100 MLS/HR; Start 02/28/16 at 13:30 Propofol (Diprivan) 100 ml @ 1.692 mls/ hr Q12H IV Last administered on 05:32; Admin Dose 13.536 MLS/HR; Start 03/01/16 at 20:30 Hydromorphone HCl (Dilaudid) 0.5 mg Q3 PRN IV PAIN Last administered on 17:32; Admin Dose 0.5 MG; Start 03/02/16 at 17:00 Heparin Sodium (Porcine) 5000 unit 5,000 unit BID SC Last administered on 21:33; Admin Dose 5,000 UNIT; Start 03/02/16 at 21:30 Potassium Chloride/Dextrose/ Sod Cl (D5-1/2ns + KCl 20 Meq) 1,000 ml @ 20 mls/ hr Q24H IV Last administered on 03/09/16 12:39; Admin Dose 20 MLS/HR; Start at 10:00 Vancomycin HCl (Vancomycin Oral Syringe) 250 mg Q6 PO Last administered on 03/10 05:56; Admin Dose 250 MG; Start 03/06/16 at 18:00 Fidaxomicin (Dificid) 200 mg BID PO Last administered on 03/09/16 21:31; Admin Dose 200 MG; Start 03/07/16 at 21:00 Potassium Chloride (Potassium Chloride Pwd/Soln) 20 meq BID PO Last administered on 03/09/16 21:38; Admin Dose 20 MEQ; Start 03/08/16 at 12:30 Voriconazole (Vfend) 200 mg BID PO Last administered on 03/09/16 21:33; Admin Dose 200 MG; Start 03/09/16 at 21:00 GAIL SPENCER Mar 10, 2016 07:22
[2016-03-10 07:27] LABS: MAGNESIUM 1.7 mg/dl (1.7-2.5); PHOSPHORUS 3.6 mg/dl (2.5-4.9)
[2016-03-10] MEDS: POTASSIUM CHLORIDE 20 MEQ POWDER FOR ORAL SOLN PO SCH ×2 (08:30→20:39)
[2016-03-10] MEDS: FIDAXOMICIN 200 MG TABLET PO SCH ×2 (08:30→20:39)
[2016-03-10] MEDS: VORICONAZOLE 200 MG TAB PO SCH ×2 (08:30→20:39)
[2016-03-10] MEDS: NICOTINE (21 MG/24 HR) PATCH TRANSDERM SCH (08:31)
[2016-03-10] MEDS: HEPARIN 5,000 UNIT/0.5 ML SYG SC SCH ×2 (08:40→20:48)
[2016-03-10 11:00] LABS: AADO2 Arterial 88.6 mmHg (7.0-24.0); Allen Test ACCEPTAB; Arterial Base Excess -3.4 mmol/L (-3.0-3); Arterial COHb 0.2 % (0.0-3.0); Arterial Fraction of Oxyhgb 96.9 % (93.0-99.0); Arterial HCO3 18.7 mmol/L (22.0-26.0); Arterial MetHb 0.2 % (0.0-1.5); Arterial Total Hemglobin 11.2 g/dl (12.0-18.0); Blood Gas PS 10; MODE VENT - PSV
--- NOTE | 2016-03-10 12:12 | PN ---
DATE: 03/10/2016 INFECTIOUS DISEASE PROGRESS NOTE SUBJECTIVE: The patient is lying comfortably in bed, currently on CPAP. She is awake, in no distre ss, afebrile. Still with loose stools. WBC today 12.8, platelets 189, neutrophils 86.2. BUN 64, cr eatinine 1.28. INDWELLINGS: Endotracheal tube, NG tube, right IJ triple-lumen catheter, Francois, rectal tube. ANTIMICROBIALS: The patient is on: 1. Voriconazole. 2. Oral vancomycin. 3. . PHYSICAL EXAMINATION: GENERAL: Fragile, elderly woman, who is in no distress. HEENT: Head atraumatic, normocephalic. Sclerae anicteric. Buccal mucosa dry. NECK: Supple, trachea midline. CHEST: Chest rise is symmetrical. Breath sounds clear, diminished to the bases. HEART: S1, S2. ABDOMEN: Soft. Bowel tones present. EXTREMITIES: Without cyanosis. Bilateral trace edema, dependent. ASSESSMENT: 1. Resolving sepsis. 2. Pancolitis. 3. Respiratory failure postoperatively, tolerates weaning. 4. Urinary tract infection, with urine culture growing Ann glabrata. 5. Ann glabrata positive sputum. 6. Status post laparoscopic abdominal exploration on 03/01/2016, cultures and pathology being negat margaret. 7. Status post C-spine injury. 8. Acute on chronic kidney disease. PLAN: The patient remains stable, overall improving. WBC tracing down. She is tolerating CPAP and may possibly be extubated today. Continue on current antibiotics. Dictated By: PHOEBE BANDA WIRE CUTTER for JUAN THOMAS/JOSUÉ Conf#: [id number] DID#: [id number]
[2016-03-10] MEDS: D5W-0.45 NACL + KCL 20 MEQ 1,000 ML IV SCH (12:29)
[2016-03-10] MEDS: HYDROmorphONE 1 MG/ML SYG IV PRN ×3 (13:16→23:52)
--- NOTE | 2016-03-10 16:46 | PN ---
Date/Time of Note Date/Time of Note DATE: 03/10/16 TIME: 16:44 Assessment/Plan VTE Prophylaxis VTE Prophylaxis Intervention: other Lines/Catheters IV Catheter Type (from Nrsg): Central Line Central line still needed: Yes Urinary Cath still in place: Yes Reason Cath still needed: other (indicate) Assessment/Plan Chief Complaint/Hosp Course 1. Left video-assisted thoracic surgery, total pulmonary decortication. 2.s/p Control of chest bleeding. 3. sepsis RESOLVING 4 s/p fall outside HOSPITAL 5 lung infilterate better 6 hyponatremia better 7 djd 8 ddd 9 hx htn 10 positive gold test 11 UTI 12HYPOTHYROIDISM 13 collites better 14 markos BETTER 15 atn better 16 pancolites 17 metabolic acidosis better plan labs id dr everett pain meds per pulmonary weaning Problems: Subjective 24 Hr Interval Summary Subjective hx not possible: other (ON VENT) Respiratory: no complaints Cardiovascular: no complaints Exam/Review of Systems Vital Signs Vitals Vital Signs Date Time Temp Pulse Resp B/P Pulse Ox O2 Delivery O2 Flow Rate FiO2 03/10/16 16:00 91 16 117/58 100 Nasal Cannula 2.0 03/10/16 15:00 98.5 03/10/16 08:00 30 Intake and Output 03/09/16 03/09/16 03/10/16 15:00 23:00 07:00 Intake Total 1095.982 ml 886.122 ml 786.2 ml Output Total 835 ml 1485 ml 1040 ml Balance 260.982 ml -598.878 ml -253.8 ml Exam Respiratory: clear to auscultation Cardiovascular: regular rate and rhythm Gastrointestinal: soft Extremities: normal pulses Neurological: [employer] II-XII intact Results Result Diagram: 03/10/16 0400 03/10/16 0400 Results 24 hrs Laboratory Tests Test 03/09/16 20:03 03/10/16 04:00 03/10/16 06:35 03/10/16 10:30 Potassium Level 3.6 3.7 Anion Gap 13 Basophils # 0.0 Basophils % 0.3 Blood Morphology Comment Blood Urea Nitrogen 64 H Calcium Level 7.5 L Carbon Dioxide Level 22 Chloride Level 115 H Creatinine 1.28 H Eosinophils # 0.0 Eosinophils % 0.2 Glucose Level 105 Hematocrit 29.4 L Hemoglobin 9.7 L Lymphocytes # 0.8 Lymphocytes % 6.1 L Mean Corpuscular Hemoglobin 31.1 Mean Corpuscular Hemoglobin Concent 33.0 Mean Corpuscular Volume 94.2 Mean Platelet Volume 12.2 H Monocytes # 0.9 Monocytes % 7.2 Neutrophils # 11.0 H Neutrophils % 86.2 H Nucleated Red Blood Cells # 0.0 Nucleated Red Blood Cells % 0.0 Platelet Count 189 # Red Blood Count 3.12 L Red Cell Distribution Width 19.5 H Sodium Level 146 H White Blood Count 12.8 H Magnesium Level 1.7 Phosphorus Level 3.6 Arterial Blood HCO3 18.7 L Arterial Blood Base Excess -3.4 L Arterial Blood Oxygen Saturation 97.3 Kaiden Test ACCEPTAB Arterial Blood Gas Puncture Site Right Radial Arterial Blood Carboxyhemoglobin 0.2 Arterial Blood Date Drawn 03/10/2016 10:50:13 AM Arterial Blood Methemoglobin 0.2 Arterial Blood pCO2 (Temp correct) 25.5 L Arterial Blood pH (Temp corrected) 7.484 H Arterial Blood pO2 (Temp corrected) 95.3 H Blood Gas A-a O2 Differential 88.6 H Blood Gas Actual Respiration Rate 34 Blood Gas Low PEEP Setting 5.0 Blood Gas Modality VENT - PSV Blood Gas Notified Time 03/10/2016 10:59:58 AM Blood Gas Notified Whom TM Blood Gas Pressure Support 10 Blood Gas Specimen Source Blood arterial Blood Gas Temperature 37.0 FiO2 30.0 Oxyhemoglobin Percent 96.9 Total Hemoglobin 11.2 L Medications Medications Current Medications Lorazepam (Ativan) 0.5 mg Q6H PRN IV ANXIETY Last administered on 02/26/16 02: 02; Admin Dose 0.5 MG; Start 02/24/16 at 02:00 Ondansetron HCl (Zofran Inj) 4 mg Q6H PRN IV NAUSEA AND/OR VOMITING Last administered on 03/01/16 13:17; Admin Dose 4 MG; Start 02/24/16 at 02:00 Nitroglycerin (Nitroglycerin (Sl Tab) 0.4 Mg) 1 tab Q5M PRN SL CHEST PAIN; Start 02/24/16 at 02:00 Hydralazine HCl (Apresoline) 10 mg Q6H PRN IV SBP > 160 Last administered on 05:19; Admin Dose 10 MG; Start 02/24/16 at 02:00 Labetalol HCl (Labetalol) 10 mg Q6 PRN IV ELEVATED BLOOD PRESSURE; Start at 23:00 Guaifenesin/ Dextromethorphan (Robitussin Dm Liquid Cup) 5 ml Q6 PRN PO COUGH Last administered on 02/27/16 18:12; Admin Dose 5 ML; Start 02/24/16 at 23:00 Nicotine (Nicoderm 21 Mg/ 24hr) 1 patch DAILY TRANSDERM Last administered on 08:31; Admin Dose 1 PATCH; Start 02/26/16 at 09:00 Levothyroxine Sodium 25 mcg 25 mcg DAILY@06 PO Last administered on 03/10/16 05:56; Admin Dose 25 MCG; Start 02/28/16 at 06:00 Metronidazole 100 ml @ 100 mls/hr Q6 IVPB Last administered on 03/10/16 11:27 ; Admin Dose 100 MLS/HR; Start 02/28/16 at 13:30 Propofol (Diprivan) 100 ml @ 1.692 mls/ hr Q12H IV Last administered on 05:32; Admin Dose 13.536 MLS/HR; Start 03/01/16 at 20:30 Hydromorphone HCl (Dilaudid) 0.5 mg Q3 PRN IV PAIN Last administered on 13:16; Admin Dose 0.5 MG; Start 03/02/16 at 17:00 Heparin Sodium (Porcine) 5000 unit 5,000 unit BID SC Last administered on 08:40; Admin Dose 5,000 UNIT; Start 03/02/16 at 21:30 Potassium Chloride/Dextrose/ Sod Cl (D5-1/2ns + KCl 20 Meq) 1,000 ml @ 20 mls/ hr Q24H IV Last administered on 03/09/16 12:39; Admin Dose 20 MLS/HR; Start at 10:00 Vancomycin HCl (Vancomycin Oral Syringe) 250 mg Q6 PO Last administered on 03/10 11:27; Admin Dose 250 MG; Start 03/06/16 at 18:00 Fidaxomicin (Dificid) 200 mg BID PO Last administered on 03/10/16 08:30; Admin Dose 200 MG; Start 1/24/17 at 21:00 Potassium Chloride (Potassium Chloride Pwd/Soln) 20 meq BID PO Last administered on 03/10/16 08:30; Admin Dose 20 MEQ; Start 03/08/16 at 12:30 Voriconazole (Vfend) 200 mg BID PO Last administered on 03/10/16 08:30; Admin Dose 200 MG; Start 03/09/16 at 21:00 REMINGTON ZELAYA MD Mar 10, 2016 16:46
--- NOTE | 2016-03-10 22:10 | PN ---
Date/Time of Note Date/Time of Note DATE: 03/10/16 TIME: 14:08 Assessment/Plan Lines/Catheters IV Catheter Type (from [facility]): Central Line Francois in Place (from [facility]): Yes Assessment/Plan Assessment/Plan [facility] Progress Note (covering for Dr. Raza) Date of Service: 03/10/16 Today's Impression & Plan: Overall stable and improved without any indication for acute surgical intervention. Multiple medical issues. Overall improvement continuing after restarting the antimicrobials with improved renal function and decreasing WBC. Discussed with her daughter and answered all questions. With above assessment, I've recommended the following for today: 1. Cont current management 2. Cont antimicrobials for now 3. Will follow Thank you again for your great care of this very pleasant patient and wonderful family. If there are any questions, please feel free to call me at [phone]. TOTAL VISIT TIME: 20 minutes of which more than half was spent in [id number] discussion with the patient, possibly including family, as well as coordination of care between multiple physicians and providers. Disclaimer: Inadvertent spelling or grammatical errors are likely due to EHR/ dictation software use and do not reflect on the overall quality of patient care. Subjective: Extubated; no major events overnight; no major abdominal pain; a bit confused per family; no n/v; no cp/sob Objective: Vitals: See below Exam: GENERAL: On exam, the patient was laying in bed and appeared to be comfortable and in no acute distress. ABDOMEN: Soft, nontender and mildly distended. Incisions are clean, dry and intact without any evidence of erythema, edema, discharge, or hernia. There are no peritoneal signs or guarding. SKIN: Skin appears to be pink and feels warm to touch. NEUROLOGIC: Patient is awake, alert, and does follows commands appropriately. Confused. Exam/Review of Systems Vital Signs Vitals Vital Signs Date Time Temp Pulse Resp B/P Pulse Ox O2 Delivery O2 Flow Rate FiO2 03/10/16 21:43 3.0 03/10/16 20:00 92 03/10/16 19:00 22 130/65 100 Nasal Cannula 03/10/16 15:00 98.5 03/10/16 09:50 30 Intake and Output 03/09/16 03/09/16 03/10/16 15:00 23:00 07:00 Intake Total 1095.982 ml 886.122 ml 786.2 ml Output Total 835 ml 1485 ml 1040 ml Balance 260.982 ml -598.878 ml -253.8 ml Results Result Diagram: 03/10/16 0400 03/10/16 0400 RACHEL BLAKE M.D. Mar 10, 2016 22:10
[2016-03-11] VITALS (17 sets, daily range): BP systolic 117–150; BP diastolic 53–82; PULSE 90–103; RESP 10–31
[2016-03-11 05:53] LABS: BASOPHIL # 0.1 10^3/ul (0.0-0.1); BASOPHILS % 0.7 % (0.0-2.0); EOSINOPHILS % 0.1 % (0.0-7.0); HEMATOCRIT 29.4 % (37.0-47.0); LYMPHOCYTES # 1.1 10^3/ul (0.8-2.9); LYMPHOCYTES % 9.2 % (15.0-51.0); MEAN CORPUSCULAR HEMOGLOBIN 31.5 pg (29.0-33.0); MEAN CORPUSCULAR HGB CONC 33.9 g/dl (32.0-37.0); MEAN CORPUSCULAR VOLUME 92.9 fl (82.0-101.0); MEAN PLATELET VOLUME 11.9 fl (7.4-10.4); MONOCYTE # 1.1 10^3/ul (0.3-0.9); MONOCYTES % 9.5 % (0.0-11.0); NEUTROPHIL # 9.3 10^3/ul (1.6-7.5); NEUTROPHILS % 80.5 % (39.0-77.0); PLATELET COUNT 218 10^3/UL (140-440); RED BLOOD COUNT 3.16 10^6/ul (4.20-5.40); RED CELL DISTRIBUTION WIDTH 18.9 % (11.5-14.5); UNCORRECTED WBC 11.6 10^3/ul (4.8-10.8); WHITE BLOOD COUNT 11.6 10^3/ul (4.8-10.8)
[2016-03-11 05:56] LABS: CONDITION 1; LH ANALYZER COMMENTS 1; SUSPECT 1
[2016-03-11] MEDS: metroNIDAZOLE 500 MG/NS (PMX) 100 ML IVPB SCH ×3 (06:25→17:47)
[2016-03-11] MEDS: VANCOMYCIN HCL 250 MG/5ML POSYG PO SCH ×3 (06:26→17:47)
[2016-03-11] MEDS: LEVOTHYROXINE 25 MCG TAB PO SCH (06:26)
[2016-03-11] MEDS: FUROSEMIDE 40 MG INJ IV SCH ×2 (06:26→17:47)
[2016-03-11 06:39] LABS: ALBUMIN 1.9 g/dl (3.3-4.9); POTASSIUM 3.9 mmol/L (3.5-5.1)
[2016-03-11 06:41] LABS: CREATININE 1.33 mg/dl (0.44-1.00)
[2016-03-11 06:42] LABS: ALBUMIN/GLOBULIN RATIO 0.73; CALCIUM 7.6 mg/dl (8.4-10.2); TOTAL PROTEIN 4.5 g/dl (6.1-8.1)
[2016-03-11] MEDS: PROPOFOL 100 ML IV SCH (07:31)
[2016-03-11] MEDS: POTASSIUM CHLORIDE 20 MEQ POWDER FOR ORAL SOLN PO SCH ×2 (08:24→20:58)
[2016-03-11] MEDS: FIDAXOMICIN 200 MG TABLET PO SCH ×2 (08:24→20:58)
[2016-03-11] MEDS: VORICONAZOLE 200 MG TAB PO SCH ×2 (08:24→20:57)
[2016-03-11] MEDS: NICOTINE (21 MG/24 HR) PATCH TRANSDERM SCH (08:25)
[2016-03-11] MEDS: HEPARIN 5,000 UNIT/0.5 ML SYG SC SCH ×2 (08:30→21:24)
--- NOTE | 2016-03-11 09:53 | CONS ---
Date/Time of Note Date/Time of Note DATE: 03/11/16 TIME: 09:53 Assessment/Plan Assessment/Plan Chief Complaint/Hosp Course ID PROGRESS NOTE TOTAL ABX DAY # 17 => Vanco po, VFend, Deficid 24H INTERVAL SUMMARY * POD#15 -> 02/25/16 VATS for Left Hemothorax * POD#10 -> 03/01/16 Ex-Lap, cultures and pathology (-) * => EXTUBATED 03/09/16 and stable on O2 via NC, NGT secure, VSS, No fevers, NAD , Denies ABD pain, A/A/O * Son is present and given update on status via [employer] TRANSLATE written print- out, son reads Monegasque well and understands PHYSICAL EXAMINATION: GENERAL: 80 yo F on supplemental O2 HEENT: Unremarkable NECK: Supple, trachea midline. CHEST: Equal chest rise bilaterally, without dyspnea HEART: RRR ABDOMEN: Soft EXTREMITIES: Warm ID ASSESSMENT: 80 yo F s/p fall from roof in [place]->C-spine injury, 4-rb fx w/left PTX/ Hemothorax, s/p CT removed in [place] admit: * POD#15 -> 02/25/16 VATS for Left Hemothorax * POD#10 -> 03/01/16 Ex-Lap, cultures and pathology (-) 1. Acute hypoxic respiratory failure w/Shortness of breath - 2/2 to Left Hemothorax/PTx w/LLL PNA= RESOLVING * EXTUBATED 03/10/16 2. Acute Spine Injuries * C-Spine Injury: grade 1 anterolisthesis C4-5 and C7-1 without fracture. * Acute fractures of the left T3-T12 and L1-L4 transverse processes. 3. Sepsis w/Fevers >103.+, Leukocytosis, tachycardia = RESOLVED 4. STAPH-CoNS Bacteremia on admission 02/13 bottles = Skin contaminant 5. Diffuse Colitis on CT = possible ischemic colitis vs ABX associated 6. PAD=> Moderate to marked narrowing of the proximal superior mesenteric artery. 7. Essential hypertension - prn hydralazine for sbp > 160 8. Transaminitis - 2/2 sepsis w/(-)hepatitis panel 9. Anemia - normocytic - check folate/b12, iron panel, occult blood stool 10. Tobaccoism -> Smoking abuse 11. Enterococcal bacteruria vs early UTI = sensitive to Vanco IV 12. (+)QTF Gold Serology: Per Dr. Ornelas's consult note 02/28/16; no evidence active MTB, no INH at this time * Can consider INH + B6 future when acute illness phase treated and liver fx WNL (+)MRSA Nares -> Bactroban onboard INVASIVES: PIV, FC, CT ABX ALLERGY: KNDA CURRENT ABX: TOTAL ABX DAY # 17 => Vanco po, VFend, Deficid ID RECOMMENDATIONS: * Continue current ABX per ID team * Son given update, he is very pleasant, polite, expresses gratitude for Mother' s hospital care and is given update on status via [employer] TRANSLATE written print -out, son reads Monegasque well and understands. . Problems: Consultation Date/Type/Reason Admit Date/Time Feb 24, 2016 at 04:06 Type of Consultation: ID Exam/Review of Systems Vital Signs Vitals Vital Signs Date Time Temp Pulse Resp B/P Pulse Ox O2 Delivery O2 Flow Rate FiO2 03/11/16 08:00 93 03/11/16 08:00 Nasal Cannula 2.0 03/11/16 02:00 14 120/58 100 03/11/16 00:00 98.9 03/10/16 09:50 30 Intake and Output 03/10/16 03/10/16 03/11/16 15:00 23:00 07:00 Intake Total 275 ml 400 ml 615 ml Output Total 705 ml 530 ml 630 ml Balance -430 ml -130 ml -15 ml Results Result Diagram: 03/11/16 0435 03/11/16 0435 Results 24 hrs Laboratory Tests Test 03/10/16 10:30 03/11/16 04:35 Arterial Blood HCO3 18.7 L Arterial Blood Base Excess -3.4 L Arterial Blood Oxygen Saturation 97.3 Kaiden Test ACCEPTAB Arterial Blood Gas Puncture Site Right Radial Arterial Blood Carboxyhemoglobin 0.2 Arterial Blood Date Drawn 03/10/2016 10:50:13 AM Arterial Blood Methemoglobin 0.2 Arterial Blood pCO2 (Temp correct) 25.5 L Arterial Blood pH (Temp corrected) 7.484 H Arterial Blood pO2 (Temp corrected) 95.3 H Blood Gas A-a O2 Differential 88.6 H Blood Gas Actual Respiration Rate 34 Blood Gas Low PEEP Setting 5.0 Blood Gas Modality VENT - PSV Blood Gas Notified Time 03/10/2016 10:59:58 AM Blood Gas Notified Whom TM Blood Gas Pressure Support 10 Blood Gas Specimen Source Blood arterial Blood Gas Temperature 37.0 FiO2 30.0 Oxyhemoglobin Percent 96.9 Total Hemoglobin 11.2 L Alanine Aminotransferase (ALT/SGPT) 48 Albumin 1.9 L Albumin/Globulin Ratio 0.73 Alkaline Phosphatase 127 H Anion Gap 16 Aspartate Amino Transf (AST/SGOT) 48 H Basophils # 0.1 Basophils % 0.7 Blood Morphology Comment Blood Urea Nitrogen 63 H Calcium Level 7.6 L Carbon Dioxide Level 20 L Chloride Level 116 H Creatinine 1.33 H Direct Bilirubin 0.00 Eosinophils # 0.0 Eosinophils % 0.1 Globulin 2.60 Glucose Level 94 Hematocrit 29.4 L Hemoglobin 10.0 L Indirect Bilirubin 0.0 Lymphocytes # 1.1 Lymphocytes % 9.2 L Mean Corpuscular Hemoglobin 31.5 Mean Corpuscular Hemoglobin Concent 33.9 Mean Corpuscular Volume 92.9 Mean Platelet Volume 11.9 H Monocytes # 1.1 H Monocytes % 9.5 Neutrophils # 9.3 H Neutrophils % 80.5 H Nucleated Red Blood Cells # 0.0 Nucleated Red Blood Cells % 0.0 Platelet Count 218 Potassium Level 3.9 Red Blood Count 3.16 L Red Cell Distribution Width 18.9 H Sodium Level 148 H Total Bilirubin 0.0 L Total Protein 4.5 L White Blood Count 11.6 H Medications Medications Current Medications Lorazepam (Ativan) 0.5 mg Q6H PRN IV ANXIETY Last administered on 02/26/16 02: 02; Admin Dose 0.5 MG; Start 02/24/16 at 02:00 Ondansetron HCl (Zofran Inj) 4 mg Q6H PRN IV NAUSEA AND/OR VOMITING Last administered on 03/01/16 13:17; Admin Dose 4 MG; Start 02/24/16 at 02:00 Nitroglycerin (Nitroglycerin (Sl Tab) 0.4 Mg) 1 tab Q5M PRN SL CHEST PAIN; Start 02/24/16 at 02:00 Hydralazine HCl (Apresoline) 10 mg Q6H PRN IV SBP > 160 Last administered on 05:19; Admin Dose 10 MG; Start 02/24/16 at 02:00 Labetalol HCl (Labetalol) 10 mg Q6 PRN IV ELEVATED BLOOD PRESSURE; Start at 23:00 Guaifenesin/ Dextromethorphan (Robitussin Dm Liquid Cup) 5 ml Q6 PRN PO COUGH Last administered on 02/27/16 18:12; Admin Dose 5 ML; Start 02/24/16 at 23:00 Nicotine (Nicoderm 21 Mg/ 24hr) 1 patch DAILY TRANSDERM Last administered on 08:25; Admin Dose 1 PATCH; Start 02/26/16 at 09:00 Levothyroxine Sodium 25 mcg 25 mcg DAILY@06 PO Last administered on 03/11/16 06:26; Admin Dose 25 MCG; Start 02/28/16 at 06:00 Metronidazole 100 ml @ 100 mls/hr Q6 IVPB Last administered on 03/11/16 06:25 ; Admin Dose 100 MLS/HR; Start 02/28/16 at 13:30 Propofol (Diprivan) 100 ml @ 1.692 mls/ hr Q12H IV Last administered on 05:32; Admin Dose 13.536 MLS/HR; Start 03/01/16 at 20:30 Hydromorphone HCl (Dilaudid) 0.5 mg Q3 PRN IV PAIN Last administered on 23:52; Admin Dose 0.5 MG; Start 03/02/16 at 17:00 Heparin Sodium (Porcine) 5000 unit 5,000 unit BID SC Last administered on 08:30; Admin Dose 5,000 UNIT; Start 03/02/16 at 21:30 Potassium Chloride/Dextrose/ Sod Cl (D5-1/2ns + KCl 20 Meq) 1,000 ml @ 20 mls/ hr Q24H IV Last administered on 03/09/16 12:39; Admin Dose 20 MLS/HR; Start at 10:00 Vancomycin HCl (Vancomycin Oral Syringe) 250 mg Q6 PO Last administered on 03/11 06:26; Admin Dose 250 MG; Start 03/06/16 at 18:00 Fidaxomicin (Dificid) 200 mg BID PO Last administered on 03/11/16 08:24; Admin Dose 200 MG; Start 03/07/16 at 21:00 Potassium Chloride (Potassium Chloride Pwd/Soln) 20 meq BID PO Last administered on 03/11/16 08:24; Admin Dose 20 MEQ; Start 03/08/16 at 12:30 Voriconazole (Vfend) 200 mg BID PO Last administered on 03/11/16 08:24; Admin Dose 200 MG; Start 03/09/16 at 21:00 COREY LUIS NP Mar 11, 2016 09:53 Nicotine (Nicoderm 21 Mg/ 24hr) 1 patch DAILY TRANSDERM Last administered on 08:25; Admin Dose 1 PATCH; Start 02/26/16 at 09:00 Levothyroxine Sodium 25 mcg 25 mcg DAILY@06 PO Last administered on 03/11/16 06:26; Admin Dose 25 MCG; Start 02/28/16 at 06:00 Metronidazole 100 ml @ 100 mls/hr Q6 IVPB Last administered on 03/11/16 06:25 ; Admin Dose 100 MLS/HR; Start 02/28/16 at 13:30 Propofol (Diprivan) 100 ml @ 1.692 mls/ hr Q12H IV Last administered on 05:32; Admin Dose 13.536 MLS/HR; Start 03/01/16 at 20:30 Hydromorphone HCl (Dilaudid) 0.5 mg Q3 PRN IV PAIN Last administered on 23:52; Admin Dose 0.5 MG; Start 03/02/16 at 17:00 Heparin Sodium (Porcine) 5000 unit 5,000 unit BID SC Last administered on 08:30; Admin Dose 5,000 UNIT; Start 03/02/16 at 21:30 Potassium Chloride/Dextrose/ Sod Cl (D5-1/2ns + KCl 20 Meq) 1,000 ml @ 20 mls/ hr Q24H IV Last administered on 03/09/16 12:39; Admin Dose 20 MLS/HR; Start at 10:00 Vancomycin HCl (Vancomycin Oral Syringe) 250 mg Q6 PO Last administered on 03/11 06:26; Admin Dose 250 MG; Start 03/06/16 at 18:00 Fidaxomicin (Dificid) 200 mg BID PO Last administered on 03/11/16 08:24; Admin Dose 200 MG; Start 03/07/16 at 21:00 Potassium Chloride (Potassium Chloride Pwd/Soln) 20 meq BID PO Last administered on 03/11/16 08:24; Admin Dose 20 MEQ; Start 03/08/16 at 12:30 Voriconazole (Vfend) 200 mg BID PO Last administered on 03/11/16 08:24; Admin Dose 200 MG; Start 03/09/16 at 21:00 COREY LUIS NP Mar 11, 2016 09:53
[2016-03-11] MEDS: D5W-0.45 NACL + KCL 20 MEQ 1,000 ML IV SCH ×2 (12:55→20:57)
--- NOTE | 2016-03-11 13:25 | CONS ---
Date/Time of Note Date/Time of Note DATE: 03/11/16 TIME: 13:20 Assessment/Plan Assessment/Plan Chief Complaint/Hosp Course Impression: 1. Pancolitis: likely ischemic. c.difficile negative, no infarct on laparotomy exam, culture, wbc in stool negative. 2. Fracture of the ribs. 3. Pneumothorax status post chest tube placement. 4. History of nicotine addiction. 5. Cervical spine injury. 6. History of fall. 7. Peripheral arterial disease. 8. Mild elevation of alkaline phosphatase, most probably related to alcoholic liver disease. 9. Anemia. 10. sysphagia s/p PEG on tube feeds 11.s/p exploratory laparotomy,no bowel resection 12.respiratory failure 13. renal failure,improving 14 steatohepatitis PLAN: 1. Continue antibiotics and anti-fungal per ID 2. continue tube feeds with nephro 3. Continue post op care per ID 4, Continue supportive care per primary and other consultants Problems: Consultation Date/Type/Reason Admit Date/Time Feb 24, 2016 at 04:06 Initial Consult Date Type of Consultation: GI 24 HR Interval Summary Free Text/Dictation awake, alert, family at bedside Constitutional: improved Exam/Review of Systems Vital Signs Vitals Vital Signs Date Time Temp Pulse Resp B/P Pulse Ox O2 Delivery O2 Flow Rate FiO2 03/11/16 13:00 99 31 150/68 100 Nasal Cannula 2.0 03/11/16 12:00 98.7 03/10/16 09:50 30 Intake and Output 03/10/16 03/10/16 03/11/16 15:00 23:00 07:00 Intake Total 275 ml 400 ml 615 ml Output Total 705 ml 530 ml 630 ml Balance -430 ml -130 ml -15 ml Exam Constitutional: alert, oriented, well developed Psych: nl mood/affect, no complaints Head: atraumatic, normocephalic Eyes: EOMI, nl conjunctiva, nl lids, nl sclera ENMT: mucosa pink and moist, nl external ears & nose, nl lips & teeth, nl nasal mucosa & septum Neck: non-tender, supple Respiratory: clear to auscultation, normal air movement Cardiovascular: nl pulses, regular rate and rhythm Gastrointestinal: bowel sounds, non-tender, soft Results Result Diagram: 03/11/16 0435 03/11/16 0435 Results 24 hrs Laboratory Tests Test 03/11/16 04:35 Alanine Aminotransferase (ALT/SGPT) 48 Albumin 1.9 L Albumin/Globulin Ratio 0.73 Alkaline Phosphatase 127 H Anion Gap 16 Aspartate Amino Transf (AST/SGOT) 48 H Basophils # 0.1 Basophils % 0.7 Blood Morphology Comment Blood Urea Nitrogen 63 H Calcium Level 7.6 L Carbon Dioxide Level 20 L Chloride Level 116 H Creatinine 1.33 H Direct Bilirubin 0.00 Eosinophils # 0.0 Eosinophils % 0.1 Globulin 2.60 Glucose Level 94 Hematocrit 29.4 L Hemoglobin 10.0 L Indirect Bilirubin 0.0 Lymphocytes # 1.1 Lymphocytes % 9.2 L Mean Corpuscular Hemoglobin 31.5 Mean Corpuscular Hemoglobin Concent 33.9 Mean Corpuscular Volume 92.9 Mean Platelet Volume 11.9 H Monocytes # 1.1 H Monocytes % 9.5 Neutrophils # 9.3 H Neutrophils % 80.5 H Nucleated Red Blood Cells # 0.0 Nucleated Red Blood Cells % 0.0 Platelet Count 218 Potassium Level 3.9 Red Blood Count 3.16 L Red Cell Distribution Width 18.9 H Sodium Level 148 H Total Bilirubin 0.0 L Total Protein 4.5 L White Blood Count 11.6 H Medications Medications Current Medications Lorazepam (Ativan) 0.5 mg Q6H PRN IV ANXIETY Last administered on 02/26/16 02: 02; Admin Dose 0.5 MG; Start 02/24/16 at 02:00 Ondansetron HCl (Zofran Inj) 4 mg Q6H PRN IV NAUSEA AND/OR VOMITING Last administered on 03/01/16 13:17; Admin Dose 4 MG; Start 02/24/16 at 02:00 Nitroglycerin (Nitroglycerin (Sl Tab) 0.4 Mg) 1 tab Q5M PRN SL CHEST PAIN; Start 02/24/16 at 02:00 Hydralazine HCl (Apresoline) 10 mg Q6H PRN IV SBP > 160 Last administered on 05:19; Admin Dose 10 MG; Start 02/24/16 at 02:00 Labetalol HCl (Labetalol) 10 mg Q6 PRN IV ELEVATED BLOOD PRESSURE; Start at 23:00 Guaifenesin/ Dextromethorphan (Robitussin Dm Liquid Cup) 5 ml Q6 PRN PO COUGH Last administered on 02/27/16 18:12; Admin Dose 5 ML; Start 02/24/16 at 23:00 Nicotine (Nicoderm 21 Mg/ 24hr) 1 patch DAILY TRANSDERM Last administered on 08:25; Admin Dose 1 PATCH; Start 02/26/16 at 09:00 Levothyroxine Sodium 25 mcg 25 mcg DAILY@06 PO Last administered on 03/11/16 06:26; Admin Dose 25 MCG; Start 02/28/16 at 06:00 Metronidazole 100 ml @ 100 mls/hr Q6 IVPB Last administered on 03/11/16 12:41 ; Admin Dose 100 MLS/HR; Start 02/28/16 at 13:30 Propofol (Diprivan) 100 ml @ 1.692 mls/ hr Q12H IV Last administered on 05:32; Admin Dose 13.536 MLS/HR; Start 03/01/16 at 20:30 Hydromorphone HCl (Dilaudid) 0.5 mg Q3 PRN IV PAIN Last administered on 23:52; Admin Dose 0.5 MG; Start 03/02/16 at 17:00 Heparin Sodium (Porcine) 5000 unit 5,000 unit BID SC Last administered on 08:30; Admin Dose 5,000 UNIT; Start 03/02/16 at 21:30 Potassium Chloride/Dextrose/ Sod Cl (D5-1/2ns + KCl 20 Meq) 1,000 ml @ 20 mls/ hr Q24H IV Last administered on 03/11/16 12:55; Admin Dose 20 MLS/HR; Start at 10:00 Vancomycin HCl (Vancomycin Oral Syringe) 250 mg Q6 PO Last administered on 03/11 12:41; Admin Dose 250 MG; Start 03/06/16 at 18:00 Fidaxomicin (Dificid) 200 mg BID PO Last administered on 03/11/16 08:24; Admin Dose 200 MG; Start 03/07/16 at 21:00 Potassium Chloride (Potassium Chloride Pwd/Soln) 20 meq BID PO Last administered on 03/11/16 08:24; Admin Dose 20 MEQ; Start 03/08/16 at 12:30 Voriconazole (Vfend) 200 mg BID PO Last administered on 03/11/16 08:24; Admin Dose 200 MG; Start 03/09/16 at 21:00 SERGIO CAMPOS MD Mar 11, 2016 13:25
--- NOTE | 2016-03-11 13:46 | PN ---
Date/Time of Note Date/Time of Note DATE: 03/11/16 TIME: 13:44 Assessment/Plan Lines/Catheters IV Catheter Type (from Nrs): Central Line Francois in Place (from Nrs): Yes Assessment/Plan Assessment/Plan [facility] Progress Note (covering for Dr. Raza) Date of Service: 03/11/16 Today's Impression & Plan: Overall stable and improved without any indication for acute surgical intervention. Multiple medical issues. Overall improvement continuing after restarting the antimicrobials with improved renal function and decreasing WBC. Seems to be tolerating TF at 35 cc hr. Awaiting further return of bowel function. Discussed with her several family members and answered all questions. With above assessment, I've recommended the following for today: 1. Cont current management 2. Cont antimicrobials for now 3. Increase tube feeds 10cc/6 hrs to goal rate (? 50 cc per hour) 4. Hose Sprayer consult for above 5. Ok from my standpoint for patient to transfer to tele 6. Will follow Thank you again for your great care of this very pleasant patient and wonderful family. If there are any questions, please feel free to call me at [phone]. TOTAL VISIT TIME: 20 minutes of which more than half was spent in [id number] discussion with the patient, possibly including family, as well as coordination of care between multiple physicians and providers. Disclaimer: Inadvertent spelling or grammatical errors are likely due to EHR/ dictation software use and do not reflect on the overall quality of patient care. Subjective: Extubated; no major events overnight; no major abdominal pain; less confused per family; no n/v; no cp/sob Objective: Vitals: See below Exam: GENERAL: On exam, the patient was laying in bed and appeared to be comfortable and in no acute distress. ABDOMEN: Soft, nontender and mildly distended. Incisions are clean, dry and intact without any evidence of erythema, edema, discharge, or hernia. There are no peritoneal signs or guarding. SKIN: Skin appears to be pink and feels warm to touch. NEUROLOGIC: Patient is awake, alert, and does follows commands appropriately. Exam/Review of Systems Vital Signs Vitals Vital Signs Date Time Temp Pulse Resp B/P Pulse Ox O2 Delivery O2 Flow Rate FiO2 03/11/16 13:00 99 31 150/68 100 Nasal Cannula 2.0 03/11/16 12:00 98.7 03/10/16 09:50 30 Intake and Output 03/10/16 03/10/16 03/11/16 15:00 23:00 07:00 Intake Total 275 ml 400 ml 670 ml Output Total 705 ml 530 ml 730 ml Balance -430 ml -130 ml -60 ml Results Result Diagram: 03/11/16 0435 03/11/16 0435 RACHEL BLAKE M.D. Mar 11, 2016 13:45
--- NOTE | 2016-03-11 15:00 | CONS ---
Date/Time of Note Date/Time of Note DATE: 03/11/16 TIME: 14:57 Consult Date/Type/Reason Admit Date/Time Feb 24, 2016 at 04:06 Initial Consult Date Type of Consultation: GI Subjective No events. Tolerating off vent. Objective Vital Signs Date Time Temp Pulse Resp B/P Pulse Ox O2 Delivery O2 Flow Rate FiO2 03/11/16 13:00 99 31 150/68 100 Nasal Cannula 2.0 03/11/16 12:00 98.7 03/10/16 09:50 30 Intake and Output 03/10/16 03/10/16 03/11/16 15:00 23:00 07:00 Intake Total 275 ml 400 ml 670 ml Output Total 705 ml 530 ml 730 ml Balance -430 ml -130 ml -60 ml HEENT: Neck supple; no JVD; no LAD CVS: RRR, S1 and S2 CHEST: Clear ABD: Soft, NT, + BS EXT: No c/c/ ++ edma Results/Medications Result Diagram: 03/11/16 0435 03/11/16 0435 Results 24 hrs Laboratory Tests Test 03/11/16 04:35 Alanine Aminotransferase (ALT/SGPT) 48 Albumin 1.9 L Albumin/Globulin Ratio 0.73 Alkaline Phosphatase 127 H Anion Gap 16 Aspartate Amino Transf (AST/SGOT) 48 H Basophils # 0.1 Basophils % 0.7 Blood Morphology Comment Blood Urea Nitrogen 63 H Calcium Level 7.6 L Carbon Dioxide Level 20 L Chloride Level 116 H Creatinine 1.33 H Direct Bilirubin 0.00 Eosinophils # 0.0 Eosinophils % 0.1 Globulin 2.60 Glucose Level 94 Hematocrit 29.4 L Hemoglobin 10.0 L Indirect Bilirubin 0.0 Lymphocytes # 1.1 Lymphocytes % 9.2 L Mean Corpuscular Hemoglobin 31.5 Mean Corpuscular Hemoglobin Concent 33.9 Mean Corpuscular Volume 92.9 Mean Platelet Volume 11.9 H Monocytes # 1.1 H Monocytes % 9.5 Neutrophils # 9.3 H Neutrophils % 80.5 H Nucleated Red Blood Cells # 0.0 Nucleated Red Blood Cells % 0.0 Platelet Count 218 Potassium Level 3.9 Red Blood Count 3.16 L Red Cell Distribution Width 18.9 H Sodium Level 148 H Total Bilirubin 0.0 L Total Protein 4.5 L White Blood Count 11.6 H Medications Current Medications Lorazepam (Ativan) 0.5 mg Q6H PRN IV ANXIETY Last administered on 02/26/16 02: 02; Admin Dose 0.5 MG; Start 02/24/16 at 02:00 Ondansetron HCl (Zofran Inj) 4 mg Q6H PRN IV NAUSEA AND/OR VOMITING Last administered on 03/01/16 13:17; Admin Dose 4 MG; Start 02/24/16 at 02:00 Nitroglycerin (Nitroglycerin (Sl Tab) 0.4 Mg) 1 tab Q5M PRN SL CHEST PAIN; Start 02/24/16 at 02:00 Hydralazine HCl (Apresoline) 10 mg Q6H PRN IV SBP > 160 Last administered on 05:19; Admin Dose 10 MG; Start 02/24/16 at 02:00 Labetalol HCl (Labetalol) 10 mg Q6 PRN IV ELEVATED BLOOD PRESSURE; Start at 23:00 Guaifenesin/ Dextromethorphan (Robitussin Dm Liquid Cup) 5 ml Q6 PRN PO COUGH Last administered on 02/27/16 18:12; Admin Dose 5 ML; Start 02/24/16 at 23:00 Nicotine (Nicoderm 21 Mg/ 24hr) 1 patch DAILY TRANSDERM Last administered on 08:25; Admin Dose 1 PATCH; Start 02/26/16 at 09:00 Levothyroxine Sodium 25 mcg 25 mcg DAILY@06 PO Last administered on 03/11/16 06:26; Admin Dose 25 MCG; Start 02/28/16 at 06:00 Metronidazole 100 ml @ 100 mls/hr Q6 IVPB Last administered on 03/11/16 12:41 ; Admin Dose 100 MLS/HR; Start 02/28/16 at 13:30 Propofol (Diprivan) 100 ml @ 1.692 mls/ hr Q12H IV Last administered on 05:32; Admin Dose 13.536 MLS/HR; Start 03/01/16 at 20:30 Hydromorphone HCl (Dilaudid) 0.5 mg Q3 PRN IV PAIN Last administered on 23:52; Admin Dose 0.5 MG; Start 03/02/16 at 17:00 Heparin Sodium (Porcine) 5000 unit 5,000 unit BID SC Last administered on 08:30; Admin Dose 5,000 UNIT; Start 03/02/16 at 21:30 Potassium Chloride/Dextrose/ Sod Cl (D5-1/2ns + KCl 20 Meq) 1,000 ml @ 20 mls/ hr Q24H IV Last administered on 03/11/16 12:55; Admin Dose 20 MLS/HR; Start at 10:00 Vancomycin HCl (Vancomycin Oral Syringe) 250 mg Q6 PO Last administered on 03/11 12:41; Admin Dose 250 MG; Start 03/06/16 at 18:00 Fidaxomicin (Dificid) 200 mg BID PO Last administered on 03/11/16 08:24; Admin Dose 200 MG; Start 03/07/16 at 21:00 Potassium Chloride (Potassium Chloride Pwd/Soln) 20 meq BID PO Last administered on 03/11/16 08:24; Admin Dose 20 MEQ; Start 03/08/16 at 12:30 Voriconazole (Vfend) 200 mg BID PO Last administered on 03/11/16 08:24; Admin Dose 200 MG; Start 03/09/16 at 21:00 Assessment/Plan Additional Assessment/Plan IMP: 1. s/p Resp Failure 2. Renal Insufficiency 3. Colitis 4. HyperNa+ RECS: 1. Mobilize OOB 2. ICS 3. DVT prophylaxis 4. Ok for ALBINO Sena MD Mar 11, 2016 15:00
[2016-03-11] MEDS: LORAZEPAM 2 MG INJ IV PRN (15:27)
[2016-03-11] MEDS: HYDROmorphONE 1 MG/ML SYG IV PRN (22:23)
[2016-03-12] VITALS (11 sets, daily range): BP systolic 125–183; BP diastolic 59–86; PULSE 90–106; RESP 16–24
[2016-03-12] MEDS: metroNIDAZOLE 500 MG/NS (PMX) 100 ML IVPB SCH ×4 (01:31→18:10)
[2016-03-12] MEDS: VANCOMYCIN HCL 250 MG/5ML POSYG PO SCH ×4 (01:31→18:11)
[2016-03-12] MEDS: LEVOTHYROXINE 25 MCG TAB PO SCH (05:51)
[2016-03-12] MEDS: FUROSEMIDE 40 MG INJ IV SCH ×2 (05:54→18:16)
[2016-03-12] MEDS: POTASSIUM CHLORIDE 20 MEQ POWDER FOR ORAL SOLN PO SCH ×2 (09:18→20:30)
[2016-03-12] MEDS: FIDAXOMICIN 200 MG TABLET PO SCH ×2 (09:18→20:30)
[2016-03-12] MEDS: VORICONAZOLE 200 MG TAB PO SCH ×2 (09:18→20:30)
[2016-03-12] MEDS: NICOTINE (21 MG/24 HR) PATCH TRANSDERM SCH (09:21)
[2016-03-12] MEDS: HEPARIN 5,000 UNIT/0.5 ML SYG SC SCH ×2 (09:31→20:48)
--- NOTE | 2016-03-12 09:41 | CONS ---
Date/Time of Note Date/Time of Note DATE: 03/12/16 TIME: 09:39 Assessment/Plan Assessment/Plan Chief Complaint/Hosp Course Impression: 1. Pancolitis: likely ischemic. c.difficile negative, no infarct on laparotomy exam, culture, wbc in stool negative. 2. Fracture of the ribs. 3. Pneumothorax status post chest tube placement. 4. History of nicotine addiction. 5. Cervical spine injury. 6. History of fall. 7. Peripheral arterial disease. 8. Mild elevation of alkaline phosphatase, most probably related to alcoholic liver disease. 9. Anemia. 10. dysphagia on tube feeds 11.s/p exploratory laparotomy,no bowel resection 12.respiratory failure 13. renal failure,improving 14 steatohepatitis PLAN: 1. Continue antibiotics and anti-fungal per ID 2. continue tube feeds with nephro 3. Continue post op care per ID 4, await repeat swallow eval tomorrow to clear patient to start clear liquid diet. 5. Continue supportive care per primary and other consultants Problems: Consultation Date/Type/Reason Admit Date/Time Feb 24, 2016 at 04:06 Type of Consultation: GI 24 HR Interval Summary Free Text/Dictation more awake, per nurse patient choked while eating ice chips, tolerating NG tube feeds without n/v Constitutional: improved Exam/Review of Systems Vital Signs Vitals Vital Signs Date Time Temp Pulse Resp B/P Pulse Ox O2 Delivery O2 Flow Rate FiO2 03/12/16 08:23 106 03/12/16 07:03 98.2 20 183/72 98 03/12/16 04:00 Nasal Cannula 2.0 03/10/16 09:50 30 Intake and Output 03/11/16 03/11/16 03/12/16 15:00 23:00 07:00 Intake Total 1605 ml 440 ml 190 ml Output Total 1080 ml 180 ml Balance 525 ml 260 ml 190 ml Exam Constitutional: alert, oriented, well developed Psych: nl mood/affect, no complaints Head: atraumatic, normocephalic Eyes: EOMI, nl conjunctiva, nl lids, nl sclera ENMT: mucosa pink and moist, nl external ears & nose, nl lips & teeth, nl nasal mucosa & septum Neck: non-tender, supple Respiratory: clear to auscultation, normal air movement Cardiovascular: nl pulses, regular rate and rhythm Gastrointestinal: bowel sounds, non-tender, soft Results Result Diagram: 03/11/16 0435 03/11/16 0435 Medications Medications Current Medications Lorazepam (Ativan) 0.5 mg Q6H PRN IV ANXIETY Last administered on 03/11/16 15: 27; Admin Dose 0.5 MG; Start 02/24/16 at 02:00 Ondansetron HCl (Zofran Inj) 4 mg Q6H PRN IV NAUSEA AND/OR VOMITING Last administered on 03/01/16 13:17; Admin Dose 4 MG; Start 02/24/16 at 02:00 Nitroglycerin (Nitroglycerin (Sl Tab) 0.4 Mg) 1 tab Q5M PRN SL CHEST PAIN; Start 02/24/16 at 02:00 Hydralazine HCl (Apresoline) 10 mg Q6H PRN IV SBP > 160 Last administered on 05:19; Admin Dose 10 MG; Start 02/24/16 at 02:00 Labetalol HCl (Labetalol) 10 mg Q6 PRN IV ELEVATED BLOOD PRESSURE; Start at 23:00 Guaifenesin/ Dextromethorphan (Robitussin Dm Liquid Cup) 5 ml Q6 PRN PO COUGH Last administered on 02/27/16 18:12; Admin Dose 5 ML; Start 02/24/16 at 23:00 Nicotine (Nicoderm 21 Mg/ 24hr) 1 patch DAILY TRANSDERM Last administered on 09:21; Admin Dose 1 PATCH; Start 02/26/16 at 09:00 Levothyroxine Sodium 25 mcg 25 mcg DAILY@06 PO Last administered on 03/12/16 05:51; Admin Dose 25 MCG; Start 02/28/16 at 06:00 Metronidazole (Flagyl 500 Mg (Pmx)) 100 ml @ 100 mls/hr Q6 IVPB Last administered on 03/12/16 05:51; Admin Dose 100 MLS/HR; Start 02/28/16 at 13:30 Hydromorphone HCl (Dilaudid) 0.5 mg Q3 PRN IV PAIN Last administered on 22:23; Admin Dose 0.5 MG; Start 03/02/16 at 17:00 Heparin Sodium (Porcine) 5000 unit 5,000 unit BID SC Last administered on 09:31; Admin Dose 5,000 UNIT; Start 03/02/16 at 21:30 Potassium Chloride/Dextrose/ Sod Cl (D5-1/2ns + KCl 20 Meq) 1,000 ml @ 20 mls/ hr Q24H IV Last administered on 03/11/16 20:57; Admin Dose 20 MLS/HR; Start at 10:00 Vancomycin HCl (Vancomycin Oral Syringe) 250 mg Q6 PO Last administered on 03/12 05:55; Admin Dose 250 MG; Start 03/06/16 at 18:00 Fidaxomicin (Dificid) 200 mg BID PO Last administered on 03/12/16 09:18; Admin Dose 200 MG; Start 03/07/16 at 21:00 Potassium Chloride (Potassium Chloride Pwd/Soln) 20 meq BID PO Last administered on 03/12/16 09:18; Admin Dose 20 MEQ; Start 03/08/16 at 12:30 Voriconazole (Vfend) 200 mg BID PO Last administered on 03/12/16 09:18; Admin Dose 200 MG; Start 03/09/16 at 21:00 SERGIO CAMPOS MD Mar 12, 2016 09:41
[2016-03-12] MEDS: HYDROmorphONE 1 MG/ML SYG IV PRN ×3 (10:51→20:31)
--- NOTE | 2016-03-12 13:47 | PN ---
Date/Time of Note Date/Time of Note DATE: 03/12/16 TIME: 13:45 Assessment/Plan VTE Prophylaxis VTE Prophylaxis Intervention: other Lines/Catheters IV Catheter Type (from Nrsg): Central Line Central line still needed: Yes Urinary Cath still in place: Yes Reason Cath still needed: other (indicate) Assessment/Plan Chief Complaint/Hosp Course 1. Left video-assisted thoracic surgery, total pulmonary decortication. 2.s/p Control of chest bleeding. 3. sepsis RESOLVING 4 s/p fall outside HOSPITAL 5 lung infilterate better 6 hyponatremia better 7 djd 8 ddd 9 hx htn 10 positive gold test 11 UTI 12HYPOTHYROIDISM 13 collites better 14 markos BETTER 15 atn better 16 pancolites 17 metabolic acidosis better plan labs id dr everett pain meds per pulmonary pt/ot albumin Problems: Subjective 24 Hr Interval Summary Respiratory: No shortness of breath Gastrointestinal: no complaints Exam/Review of Systems Vital Signs Vitals Vital Signs Date Time Temp Pulse Resp B/P Pulse Ox O2 Delivery O2 Flow Rate FiO2 03/12/16 12:22 98 03/12/16 11:22 97.5 20 140/63 98 03/12/16 04:00 Nasal Cannula 2.0 03/10/16 09:50 30 Intake and Output 03/11/16 03/11/16 03/12/16 15:00 23:00 07:00 Intake Total 1605 ml 440 ml 190 ml Output Total 1080 ml 180 ml Balance 525 ml 260 ml 190 ml Exam Respiratory: clear to auscultation Cardiovascular: regular rate and rhythm Gastrointestinal: bowel sounds (+), soft Extremities: normal pulses Results Result Diagram: 03/11/16 0435 03/11/16 0435 Medications Medications Current Medications Lorazepam (Ativan) 0.5 mg Q6H PRN IV ANXIETY Last administered on 03/11/16 15: 27; Admin Dose 0.5 MG; Start 02/24/16 at 02:00 Ondansetron HCl (Zofran Inj) 4 mg Q6H PRN IV NAUSEA AND/OR VOMITING Last administered on 03/01/16 13:17; Admin Dose 4 MG; Start 02/24/16 at 02:00 Nitroglycerin (Nitroglycerin (Sl Tab) 0.4 Mg) 1 tab Q5M PRN SL CHEST PAIN; Start 02/24/16 at 02:00 Hydralazine HCl (Apresoline) 10 mg Q6H PRN IV SBP > 160 Last administered on 05:19; Admin Dose 10 MG; Start 02/24/16 at 02:00 Labetalol HCl (Labetalol) 10 mg Q6 PRN IV ELEVATED BLOOD PRESSURE; Start at 23:00 Guaifenesin/ Dextromethorphan (Robitussin Dm Liquid Cup) 5 ml Q6 PRN PO COUGH Last administered on 02/27/16 18:12; Admin Dose 5 ML; Start 02/24/16 at 23:00 Nicotine (Nicoderm 21 Mg/ 24hr) 1 patch DAILY TRANSDERM Last administered on 09:21; Admin Dose 1 PATCH; Start 02/26/16 at 09:00 Levothyroxine Sodium 25 mcg 25 mcg DAILY@06 PO Last administered on 03/12/16 05:51; Admin Dose 25 MCG; Start 02/28/16 at 06:00 Metronidazole (Flagyl 500 Mg (Pmx)) 100 ml @ 100 mls/hr Q6 IVPB Last administered on 03/12/16 12:39; Admin Dose 100 MLS/HR; Start 02/28/16 at 13:30 Hydromorphone HCl (Dilaudid) 0.5 mg Q3 PRN IV PAIN Last administered on 10:51; Admin Dose 0.5 MG; Start 03/02/16 at 17:00 Heparin Sodium (Porcine) 5000 unit 5,000 unit BID SC Last administered on 09:31; Admin Dose 5,000 UNIT; Start 03/02/16 at 21:30 Potassium Chloride/Dextrose/ Sod Cl (D5-1/2ns + KCl 20 Meq) 1,000 ml @ 20 mls/ hr Q24H IV Last administered on 03/11/16 20:57; Admin Dose 20 MLS/HR; Start at 10:00 Vancomycin HCl (Vancomycin Oral Syringe) 250 mg Q6 PO Last administered on 03/12 12:40; Admin Dose 250 MG; Start 03/06/16 at 18:00 Fidaxomicin (Dificid) 200 mg BID PO Last administered on 03/12/16 09:18; Admin Dose 200 MG; Start 03/07/16 at 21:00 Potassium Chloride (Potassium Chloride Pwd/Soln) 20 meq BID PO Last administered on 03/12/16 09:18; Admin Dose 20 MEQ; Start 03/08/16 at 12:30 Voriconazole 200 mg 200 mg BID PO Last administered on 03/12/16 09:18; Admin Dose 200 MG; Start 03/09/16 at 21:00 Albumin Human (Albumin Human 25%) 100 ml @ 100 mls/hr DAILY IV ; Start at 09:00; Stop 03/18/16 at 08:59; Status REMINGTON RIDDLE MD Mar 12, 2016 13:47
--- NOTE | 2016-03-12 14:12 | CONS ---
Date/Time of Note Date/Time of Note DATE: 03/12/16 TIME: 14:08 Assessment/Plan Assessment/Plan Chief Complaint/Hosp Course ID PROGRESS NOTE TOTAL ABX DAY # 18 => Vanco po, VFend, Deficid 24H INTERVAL SUMMARY => CLINICALLY STATUS QUO stable and transferred to [facility], no new issues => Denies ABD pain, denies SOB/no dyspnea * POD#16 -> 17 VATS for Left Hemothorax * POD#11 -> 03/01/16 Ex-Lap, cultures and pathology (-) * => EXTUBATED 03/09/16 and stable on O2 via NC, NGT secure, VSS, No fevers, NAD , Denies ABD pain, A/A/O PHYSICAL EXAMINATION: GENERAL: 80 yo F on supplemental O2 HEENT: Unremarkable except for NGT placed for gas distention NECK: Supple, trachea midline. CHEST: Equal chest rise bilaterally, without dyspnea HEART: RRR ABDOMEN: Soft EXTREMITIES: Warm ID ASSESSMENT: 80 yo F s/p fall from roof in [place]->C-spine injury, 4-rb fx w/left PTX/ Hemothorax, s/p CT removed in [place] admit: * POD#16 -> 02/25/16 VATS for Left Hemothorax * POD#11 -> 03/01/16 Ex-Lap, cultures and pathology (-) 1. Acute hypoxic respiratory failure w/Shortness of breath - 2/2 to Left Hemothorax/PTx w/LLL PNA= RESOLVING * EXTUBATED 03/10/16 2. Acute Spine Injuries * C-Spine Injury: grade 1 anterolisthesis C4-5 and C7-1 without fracture. * Acute fractures of the left T3-T12 and L1-L4 transverse processes. 3. Sepsis w/Fevers >103.+, Leukocytosis, tachycardia = RESOLVED 4. STAPH-CoNS Bacteremia on admission 2 bottles = Skin contaminant 5. Diffuse Colitis on CT = possible ischemic colitis vs ABX associated 6. PAD=> Moderate to marked narrowing of the proximal superior mesenteric artery. 7. Essential hypertension - prn hydralazine for sbp > 160 8. Transaminitis - 2/2 sepsis w/(-)hepatitis panel 9. Anemia - normocytic - check folate/b12, iron panel, occult blood stool 10. Tobaccoism -> Smoking abuse 11. Enterococcal bacteruria vs early UTI = sensitive to Vanco IV 12. (+)QTF Gold Serology: Per Dr. Ornelas's consult note 02/28/16; no evidence active MTB, no INH at this time * Can consider INH + B6 future when acute illness phase treated and liver fx WNL (+)MRSA Nares -> Bactroban onboard INVASIVES: PIV, FC, CT ABX ALLERGY: KNDA CURRENT ABX: TOTAL ABX DAY # 18 => Vanco po, VFend, Deficid ID RECOMMENDATIONS: * Continue current ABX per ID team who will f/u next week with further recommendations . Problems: Consultation Date/Type/Reason Admit Date/Time Feb 24, 2016 at 04:06 Type of Consultation: ID Exam/Review of Systems Vital Signs Vitals Vital Signs Date Time Temp Pulse Resp B/P Pulse Ox O2 Delivery O2 Flow Rate FiO2 03/12/16 14:05 3.0 32 03/12/16 12:22 98 03/12/16 11:22 97.5 20 140/63 98 03/12/16 08:30 Nasal Cannula Intake and Output 03/11/16 03/11/16 03/12/16 15:00 23:00 07:00 Intake Total 1605 ml 440 ml 190 ml Output Total 1080 ml 180 ml Balance 525 ml 260 ml 190 ml Results Result Diagram: 03/11/16 0435 03/11/16 0435 Medications Medications Current Medications Lorazepam (Ativan) 0.5 mg Q6H PRN IV ANXIETY Last administered on 03/11/16 15: 27; Admin Dose 0.5 MG; Start 02/24/16 at 02:00 Ondansetron HCl (Zofran Inj) 4 mg Q6H PRN IV NAUSEA AND/OR VOMITING Last administered on 03/01/16 13:17; Admin Dose 4 MG; Start 02/24/16 at 02:00 Nitroglycerin (Nitroglycerin (Sl Tab) 0.4 Mg) 1 tab Q5M PRN SL CHEST PAIN; Start 02/24/16 at 02:00 Hydralazine HCl (Apresoline) 10 mg Q6H PRN IV SBP > 160 Last administered on 05:19; Admin Dose 10 MG; Start 02/24/16 at 02:00 Labetalol HCl (Labetalol) 10 mg Q6 PRN IV ELEVATED BLOOD PRESSURE; Start at 23:00 Guaifenesin/ Dextromethorphan (Robitussin Dm Liquid Cup) 5 ml Q6 PRN PO COUGH Last administered on 02/27/16 18:12; Admin Dose 5 ML; Start 02/24/16 at 23:00 Nicotine (Nicoderm 21 Mg/ 24hr) 1 patch DAILY TRANSDERM Last administered on 09:21; Admin Dose 1 PATCH; Start 02/26/16 at 09:00 Levothyroxine Sodium 25 mcg 25 mcg DAILY@06 PO Last administered on 03/12/16 05:51; Admin Dose 25 MCG; Start 02/28/16 at 06:00 Metronidazole (Flagyl 500 Mg (Pmx)) 100 ml @ 100 mls/hr Q6 IVPB Last administered on 03/12/16 12:39; Admin Dose 100 MLS/HR; Start 02/28/16 at 13:30 Hydromorphone HCl (Dilaudid) 0.5 mg Q3 PRN IV PAIN Last administered on 10:51; Admin Dose 0.5 MG; Start 03/02/16 at 17:00 Heparin Sodium (Porcine) 5000 unit 5,000 unit BID SC Last administered on 09:31; Admin Dose 5,000 UNIT; Start 03/02/16 at 21:30 Potassium Chloride/Dextrose/ Sod Cl (D5-1/2ns + KCl 20 Meq) 1,000 ml @ 20 mls/ hr Q24H IV Last administered on 03/11/16 20:57; Admin Dose 20 MLS/HR; Start at 10:00 Vancomycin HCl (Vancomycin Oral Syringe) 250 mg Q6 PO Last administered on 03/12 12:40; Admin Dose 250 MG; Start 03/06/16 at 18:00 Fidaxomicin (Dificid) 200 mg BID PO Last administered on 03/12/16 09:18; Admin Dose 200 MG; Start 03/07/16 at 21:00 Potassium Chloride (Potassium Chloride Pwd/Soln) 20 meq BID PO Last administered on 03/12/16 09:18; Admin Dose 20 MEQ; Start 03/08/16 at 12:30 Voriconazole 200 mg 200 mg BID PO Last administered on 03/12/16t 09:18; Admin Dose 200 MG; Start 03/09/16 at 21:00 Albumin Human (Albumin Human 25%) 100 ml @ 100 mls/hr DAILY IV ; Start at 09:00; Stop 03/18/16 at 08:59 COREY LUIS NP Mar 12, 2016 14:12
--- NOTE | 2016-03-12 17:24 | CONS ---
Date/Time of Note Date/Time of Note DATE: 03/12/16 TIME: 17:22 Consult Date/Type/Reason Admit Date/Time Feb 24, 2016 at 04:06 Type of Consultation: pulm Subjective No events overnight. Objective Vital Signs Date Time Temp Pulse Resp B/P Pulse Ox O2 Delivery O2 Flow Rate FiO2 03/12/16 16:50 101 03/12/16 15:13 98.0 20 148/75 98 03/12/16 14:05 3.0 32 03/12/16 08:30 Nasal Cannula Intake and Output 03/11/16 03/11/16 03/12/16 15:00 23:00 07:00 Intake Total 1605 ml 440 ml 190 ml Output Total 1080 ml 180 ml Balance 525 ml 260 ml 190 ml HEENT: Neck supple; no JVD; no LAD CVS: RRR, S1 and S2 CHEST: Clear ABD: Soft, NT, + BS EXT: No c/c/ ++ edma Results/Medications Result Diagram: 03/11/16 0435 03/11/16 0435 Medications Current Medications Lorazepam (Ativan) 0.5 mg Q6H PRN IV ANXIETY Last administered on 03/11/16 15: 27; Admin Dose 0.5 MG; Start 02/24/16 at 02:00 Ondansetron HCl (Zofran Inj) 4 mg Q6H PRN IV NAUSEA AND/OR VOMITING Last administered on 03/01/16 13:17; Admin Dose 4 MG; Start 02/24/16 at 02:00 Nitroglycerin (Nitroglycerin (Sl Tab) 0.4 Mg) 1 tab Q5M PRN SL CHEST PAIN; Start 02/24/16 at 02:00 Hydralazine HCl (Apresoline) 10 mg Q6H PRN IV SBP > 160 Last administered on 05:19; Admin Dose 10 MG; Start 02/24/16 at 02:00 Labetalol HCl (Labetalol) 10 mg Q6 PRN IV ELEVATED BLOOD PRESSURE; Start at 23:00 Guaifenesin/ Dextromethorphan (Robitussin Dm Liquid Cup) 5 ml Q6 PRN PO COUGH Last administered on 02/27/16 18:12; Admin Dose 5 ML; Start 02/24/16 at 23:00 Nicotine (Nicoderm 21 Mg/ 24hr) 1 patch DAILY TRANSDERM Last administered on 09:21; Admin Dose 1 PATCH; Start 02/26/16 at 09:00 Levothyroxine Sodium 25 mcg 25 mcg DAILY@06 PO Last administered on 03/12/16 05:51; Admin Dose 25 MCG; Start 02/28/16 at 06:00 Metronidazole (Flagyl 500 Mg (Pmx)) 100 ml @ 100 mls/hr Q6 IVPB Last administered on 03/12/16 12:39; Admin Dose 100 MLS/HR; Start 02/28/16 at 13:30 Hydromorphone HCl (Dilaudid) 0.5 mg Q3 PRN IV PAIN Last administered on 16:26; Admin Dose 0.5 MG; Start 03/02/16 at 17:00 Heparin Sodium (Porcine) 5000 unit 5,000 unit BID SC Last administered on 09:31; Admin Dose 5,000 UNIT; Start 03/02/16 at 21:30 Potassium Chloride/Dextrose/ Sod Cl (D5-1/2ns + KCl 20 Meq) 1,000 ml @ 20 mls/ hr Q24H IV Last administered on 03/11/16 20:57; Admin Dose 20 MLS/HR; Start at 10:00 Vancomycin HCl (Vancomycin Oral Syringe) 250 mg Q6 PO Last administered on 03/12 12:40; Admin Dose 250 MG; Start 03/06/16 at 18:00 Fidaxomicin (Dificid) 200 mg BID PO Last administered on 03/12/16 09:18; Admin Dose 200 MG; Start 03/07/16 at 21:00 Potassium Chloride (Potassium Chloride Pwd/Soln) 20 meq BID PO Last administered on 03/12/16 09:18; Admin Dose 20 MEQ; Start 03/08/16 at 12:30 Voriconazole 200 mg 200 mg BID PO Last administered on 03/12/16 09:18; Admin Dose 200 MG; Start 03/09/16 at 21:00 Albumin Human (Albumin Human 25%) 100 ml @ 100 mls/hr DAILY IV ; Start at 09:00; Stop 03/18/16 at 08:59 Assessment/Plan Additional Assessment/Plan IMP: 1. s/p Resp Failure 2. Renal Insufficiency 3. Colitis 4. HyperNa+ 5. Anemia RECS: 1. Mobilize OOB 2. ICS 3. DVT prophylaxis 4. Minimize benzo's ALBINO DUNBAR MD Mar 12, 2016 17:24
[2016-03-13] VITALS (11 sets, daily range): BP systolic 133–148; BP diastolic 61–78; PULSE 91–110; RESP 16–24
[2016-03-13] MEDS: VANCOMYCIN HCL 250 MG/5ML POSYG PO SCH ×5 (01:34→23:39)
[2016-03-13] MEDS: metroNIDAZOLE 500 MG/NS (PMX) 100 ML IVPB SCH ×5 (01:34→23:31)
[2016-03-13] MEDS: LORAZEPAM 2 MG INJ IV PRN ×2 (01:39→20:59)
[2016-03-13] MEDS: FUROSEMIDE 40 MG INJ IV SCH ×2 (05:46→17:10)
[2016-03-13] MEDS: LEVOTHYROXINE 25 MCG TAB PO SCH (05:47)
[2016-03-13] MEDS: HYDROmorphONE 1 MG/ML SYG IV PRN ×5 (05:48→19:53)
[2016-03-13 07:06] LABS: ALBUMIN 1.8 g/dl (3.3-4.9)
[2016-03-13 07:09] LABS: CREATININE 1.28 mg/dl (0.44-1.00)
[2016-03-13 07:10] LABS: ALBUMIN/GLOBULIN RATIO 0.66; CALCIUM 7.5 mg/dl (8.4-10.2); TOTAL PROTEIN 4.5 g/dl (6.1-8.1)
[2016-03-13 07:35] LABS: BASOPHIL # 0.1 10^3/ul (0.0-0.1); BASOPHILS % 0.6 % (0.0-2.0); HEMATOCRIT 28.1 % (37.0-47.0); HEMOGLOBIN 9.6 g/dl (12.0-16.0); LYMPHOCYTES # 1.1 10^3/ul (0.8-2.9); LYMPHOCYTES % 8.9 % (15.0-51.0); MEAN CORPUSCULAR HEMOGLOBIN 31.7 pg (29.0-33.0); MEAN CORPUSCULAR HGB CONC 34.2 g/dl (32.0-37.0); MEAN CORPUSCULAR VOLUME 92.6 fl (82.0-101.0); MEAN PLATELET VOLUME 11.7 fl (7.4-10.4); MONOCYTE # 1.2 10^3/ul (0.3-0.9); MONOCYTES % 9.4 % (0.0-11.0); NEUTROPHILS % 81.1 % (39.0-77.0); PLATELET COUNT 240 10^3/UL (140-440); RED BLOOD COUNT 3.04 10^6/ul (4.20-5.40); RED CELL DISTRIBUTION WIDTH 18.3 % (11.5-14.5); UNCORRECTED WBC 12.4 10^3/ul (4.8-10.8); WHITE BLOOD COUNT 12.4 10^3/ul (4.8-10.8)
[2016-03-13 07:39] LABS: CONDITION 1; LH ANALYZER COMMENTS 1; SUSPECT 1
[2016-03-13] MEDS: FIDAXOMICIN 200 MG TABLET PO SCH ×2 (08:39→20:59)
[2016-03-13] MEDS: POTASSIUM CHLORIDE 20 MEQ POWDER FOR ORAL SOLN PO SCH ×2 (08:39→20:59)
[2016-03-13] MEDS: VORICONAZOLE 200 MG TAB PO SCH ×2 (08:39→20:59)
[2016-03-13] MEDS: NICOTINE (21 MG/24 HR) PATCH TRANSDERM SCH (08:46)
[2016-03-13] MEDS: ALBUMIN HUMAN 25% 100 ML IV SCH (08:48)
[2016-03-13] MEDS: HEPARIN 5,000 UNIT/0.5 ML SYG SC SCH ×2 (08:52→21:13)
--- NOTE | 2016-03-13 09:45 | CONS ---
Date/Time of Note Date/Time of Note DATE: 03/13/16 TIME: 09:39 Assessment/Plan Assessment/Plan Additional Assessment/Plan Assessment and recommendations; next 1. Patient admitted with small bowel obstruction underwent laparotomy currently doing very well. 2. Status post respiratory failure. 3. Renal insufficiency with continually improving renal function. 4. Generalized anasarca currently on albumin. 5. Colitis. Continue Flagyl for now. Continue current treatment. She will undergo a swallow evaluation today. Patient needs to be mobilized out of bed. Consultation Date/Type/Reason Admit Date/Time Feb 24, 2016 at 04:06 Type of Consultation: pulm 24 HR Interval Summary Free Text/Dictation Patient condition is stable the patient has been transferred out of ICU to the telemetry unit. Able to swallow water as well as have some ice chips. Still being fed via NG tube. Next Complains of abdominal distention and occasional pain. General examination; elderly lady, awake, alert currently in no distress. Exam/Review of Systems Vital Signs Vitals Vital Signs Date Time Temp Pulse Resp B/P Pulse Ox O2 Delivery O2 Flow Rate FiO2 03/13/16 08:05 102 03/13/16 07:37 97.9 22 138/61 100 03/13/16 00:24 3.0 03/12/16 22:37 Nasal Cannula 03/12/16 17:25 32 Intake and Output 03/12/16 03/12/16 03/13/16 15:00 23:00 07:00 Intake Total 800 ml Output Total 1100 ml 1200 ml Balance -1100 ml -400 ml Exam HEENT examination; supple neck, no JVD. No lymphadenopathy. Pharynx is clear. Chest examination; clear to auscultation. S1-S2 audible no murmurs regular rhythm. Abdomen examination: protuberant, mildly tender, bowel sounds audible. Well- healed laparotomy scar is present. Extremity examination; 2+ pitting edema lower extremities bilaterally there is no edema in upper extremities. Overall there has been significant reduction in generalized anasarca. 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 Results Result Diagram: 03/13/16 0533 03/13/16 0533 Results 24 hrs Laboratory Tests Test 03/13/16 05:33 Alanine Aminotransferase (ALT/SGPT) 44 Albumin 1.8 L Albumin/Globulin Ratio 0.66 Alkaline Phosphatase 226 H Anion Gap 6 L Aspartate Amino Transf (AST/SGOT) 38 Basophils # 0.1 Basophils % 0.6 Blood Morphology Comment Blood Urea Nitrogen 66 H Calcium Level 7.5 L Carbon Dioxide Level 23 Chloride Level 119 H Creatinine 1.28 H Direct Bilirubin Eosinophils # 0.0 Eosinophils % 0.0 Globulin 2.70 Glucose Level 129 Hematocrit 28.1 L Hemoglobin 9.6 L Indirect Bilirubin Lymphocytes # 1.1 Lymphocytes % 8.9 L Mean Corpuscular Hemoglobin 31.7 Mean Corpuscular Hemoglobin Concent 34.2 Mean Corpuscular Volume 92.6 Mean Platelet Volume 11.7 H Monocytes # 1.2 H Monocytes % 9.4 Neutrophils # 10.0 H Neutrophils % 81.1 H Nucleated Red Blood Cells # 0.0 Nucleated Red Blood Cells % 0.0 Platelet Count 240 Potassium Level 3.0 L Red Blood Count 3.04 L Red Cell Distribution Width 18.3 H Sodium Level 145 H Total Bilirubin Total Protein 4.5 L White Blood Count 12.4 H Medications Medications Current Medications Lorazepam (Ativan) 0.5 mg Q6H PRN IV ANXIETY Last administered on 03/13/16 01: 39; Admin Dose 0.5 MG; Start 02/24/16 at 02:00 Ondansetron HCl (Zofran Inj) 4 mg Q6H PRN IV NAUSEA AND/OR VOMITING Last administered on 03/01/16 13:17; Admin Dose 4 MG; Start 02/24/16 at 02:00 Nitroglycerin (Nitroglycerin (Sl Tab) 0.4 Mg) 1 tab Q5M PRN SL CHEST PAIN; Start 02/24/16 at 02:00 Hydralazine HCl (Apresoline) 10 mg Q6H PRN IV SBP > 160 Last administered on 05:19; Admin Dose 10 MG; Start 02/24/16 at 02:00 Labetalol HCl (Labetalol) 10 mg Q6 PRN IV ELEVATED BLOOD PRESSURE; Start at 23:00 Guaifenesin/ Dextromethorphan (Robitussin Dm Liquid Cup) 5 ml Q6 PRN PO COUGH Last administered on 02/27/16 18:12; Admin Dose 5 ML; Start 02/24/16 at 23:00 Nicotine (Nicoderm 21 Mg/ 24hr) 1 patch DAILY TRANSDERM Last administered on 08:46; Admin Dose 1 PATCH; Start 02/26/16 at 09:00 Levothyroxine Sodium 25 mcg 25 mcg DAILY@06 PO Last administered on 03/13/16 05:47; Admin Dose 25 MCG; Start 02/28/16 at 06:00 Metronidazole (Flagyl 500 Mg (Pmx)) 100 ml @ 100 mls/hr Q6 IVPB Last administered on 03/13/16 05:47; Admin Dose 100 MLS/HR; Start 02/28/16 at 13:30 Hydromorphone HCl (Dilaudid) 0.5 mg Q3 PRN IV PAIN Last administered on 05:48; Admin Dose 0.5 MG; Start 03/02/16 at 17:00 Heparin Sodium (Porcine) 5000 unit 5,000 unit BID SC Last administered on 08:52; Admin Dose 5,000 UNIT; Start 03/02/16 at 21:30 Potassium Chloride/Dextrose/ Sod Cl (D5-1/2ns + KCl 20 Meq) 1,000 ml @ 20 mls/ hr Q24H IV Last administered on 03/11/16 20:57; Admin Dose 20 MLS/HR; Start at 10:00 Vancomycin HCl (Vancomycin Oral Syringe) 250 mg Q6 PO Last administered on 03/13 05:47; Admin Dose 250 MG; Start 03/06/16 at 18:00 Fidaxomicin (Dificid) 200 mg BID PO Last administered on 03/13/16 08:39; Admin Dose 200 MG; Start 03/07/16 at 21:00 Potassium Chloride (Potassium Chloride Pwd/Soln) 20 meq BID PO Last administered on 03/13/16 08:39; Admin Dose 20 MEQ; Start 03/08/16 at 12:30 Voriconazole 200 mg 200 mg BID PO Last administered on 03/13/16 08:39; Admin Dose 200 MG; Start 03/09/16 at 21:00 Albumin Human (Albumin Human 25%) 100 ml @ 100 mls/hr DAILY IV Last administered on 03/13/16 08:48; Admin Dose 100 MLS/HR; Start 03/13/16 at 09:00 ; Stop 03/18/16 at 08:59 GAIL SPENCER Mar 13, 2016 09:45
[2016-03-13] MEDS: D5W-0.45 NACL + KCL 20 MEQ 1,000 ML IV SCH (12:29)
--- NOTE | 2016-03-13 14:36 | PN ---
DATE: 03/13/2016 SUBJECTIVE: No acute events. The patient is lying comfortably in bed. She is afebrile. WBC today 12.4, platelets 240, neutrophils 81.1, BUN 66, creatinine 1.38. MICROBIOLOGY: No new results. ANTIMICROBIALS: The patient is on: 1. Oral Voriconazole. 2. Dificid. 3. Oral vancomycin. 4. IV Flagyl. INDWELLINGS: NG tube, right IJ triple lumen catheter, Francois. PHYSICAL EXAMINATION: GENERAL: This is a fragile, elderly woman who is awake, in no distress. HEENT: Head atraumatic, normocephalic. Sclerae anicteric. Buccal mucosa dry. NECK: Supple, trachea midline. CHEST: Rise symmetrical, diminished at the bases. HEART: S1, S2. ABDOMEN: Soft. Bowel tones present. EXTREMITIES: Bilateral edema. SKIN: With anasarca. ASSESSMENT: 1. Systemic inflammatory response syndrome with persistent leukocytosis, status post sepsis. 2. Pancolitis. 3. Urinary tract infections. 4. History of C-spine injury. 5. Status post respiratory failure. PLAN: The patient remains stable. Continue present care, antibiotics. Follow recommendation of [facility]. Discussed with family and patient at bedside. Dictated By: PHOEBE BANDA LINE LOCATOR for JUAN THOMAS/JOSUÉ Conf#: [id number] DID#: [id number]
--- NOTE | 2016-03-13 15:40 | PN ---
Date/Time of Note Date/Time of Note DATE: 03/13/16 TIME: 15:39 Assessment/Plan VTE Prophylaxis VTE Prophylaxis Intervention: other Lines/Catheters IV Catheter Type (from Nrsg): PICC Line Central line still needed: Yes Urinary Cath still in place: Yes Reason Cath still needed: other (indicate) Assessment/Plan Chief Complaint/Hosp Course 1. Left video-assisted thoracic surgery, total pulmonary decortication. 2.s/p Control of chest bleeding. 3. sepsis RESOLVING 4 s/p fall outside HOSPITAL 5 lung infilterate better 6 hyponatremia better 7 djd 8 ddd 9 hx htn 10 positive gold test 11 UTI 12HYPOTHYROIDISM 13 collites better 14 markos BETTER 15 atn better 16 pancolites 17 metabolic acidosis better 18 hypokalemia plan labs id dr everett pain meds per pulmonary pt/ot albumin Problems: Subjective 24 Hr Interval Summary Respiratory: no complaints Cardiovascular: no complaints Exam/Review of Systems Vital Signs Vitals Vital Signs Date Time Temp Pulse Resp B/P Pulse Ox O2 Delivery O2 Flow Rate FiO2 03/13/16 15:17 97.9 98 22 133/63 100 03/13/16 09:28 Nasal Cannula 3.0 03/12/16 17:25 32 Intake and Output 03/12/16 03/12/16 03/13/16 15:00 23:00 07:00 Intake Total 800 ml Output Total 1100 ml 1200 ml Balance -1100 ml -400 ml Exam Neck: supple Respiratory: clear to auscultation Cardiovascular: regular rate and rhythm Gastrointestinal: soft Musculoskeletal: nl extremities to inspection Extremities: normal pulses Results Result Diagram: 03/13/16 0533 03/13/16 0533 Results 24 hrs Laboratory Tests Test 03/13/16 05:33 Alanine Aminotransferase (ALT/SGPT) 44 Albumin 1.8 L Albumin/Globulin Ratio 0.66 Alkaline Phosphatase 226 H Anion Gap 6 L Aspartate Amino Transf (AST/SGOT) 38 Basophils # 0.1 Basophils % 0.6 Blood Morphology Comment Blood Urea Nitrogen 66 H Calcium Level 7.5 L Carbon Dioxide Level 23 Chloride Level 119 H Creatinine 1.28 H Direct Bilirubin Eosinophils # 0.0 Eosinophils % 0.0 Globulin 2.70 Glucose Level 129 Hematocrit 28.1 L Hemoglobin 9.6 L Indirect Bilirubin Lymphocytes # 1.1 Lymphocytes % 8.9 L Mean Corpuscular Hemoglobin 31.7 Mean Corpuscular Hemoglobin Concent 34.2 Mean Corpuscular Volume 92.6 Mean Platelet Volume 11.7 H Monocytes # 1.2 H Monocytes % 9.4 Neutrophils # 10.0 H Neutrophils % 81.1 H Nucleated Red Blood Cells # 0.0 Nucleated Red Blood Cells % 0.0 Platelet Count 240 Potassium Level 3.0 L Red Blood Count 3.04 L Red Cell Distribution Width 18.3 H Sodium Level 145 H Total Bilirubin Total Protein 4.5 L White Blood Count 12.4 H Medications Medications Current Medications Lorazepam (Ativan) 0.5 mg Q6H PRN IV ANXIETY Last administered on 03/13/16 01: 39; Admin Dose 0.5 MG; Start 02/24/16 at 02:00 Ondansetron HCl (Zofran Inj) 4 mg Q6H PRN IV NAUSEA AND/OR VOMITING Last administered on 03/01/16 13:17; Admin Dose 4 MG; Start 02/24/16 at 02:00 Nitroglycerin (Nitroglycerin (Sl Tab) 0.4 Mg) 1 tab Q5M PRN SL CHEST PAIN; Start 02/24/16 at 02:00 Hydralazine HCl (Apresoline) 10 mg Q6H PRN IV SBP > 160 Last administered on 05:19; Admin Dose 10 MG; Start 02/24/16 at 02:00 Labetalol HCl (Labetalol) 10 mg Q6 PRN IV ELEVATED BLOOD PRESSURE; Start at 23:00 Guaifenesin/ Dextromethorphan (Robitussin Dm Liquid Cup) 5 ml Q6 PRN PO COUGH Last administered on 02/27/16 18:12; Admin Dose 5 ML; Start 02/24/16 at 23:00 Nicotine (Nicoderm 21 Mg/ 24hr) 1 patch DAILY TRANSDERM Last administered on 08:46; Admin Dose 1 PATCH; Start 02/26/16 at 09:00 Levothyroxine Sodium 25 mcg 25 mcg DAILY@06 PO Last administered on 03/13/16 05:47; Admin Dose 25 MCG; Start 02/28/16 at 06:00 Metronidazole (Flagyl 500 Mg (Pmx)) 100 ml @ 100 mls/hr Q6 IVPB Last administered on 03/13/16 11:16; Admin Dose 100 MLS/HR; Start 02/28/16 at 13:30 Hydromorphone HCl (Dilaudid) 0.5 mg Q3 PRN IV PAIN Last administered on 14:54; Admin Dose 0.5 MG; Start 03/02/16 at 17:00 Heparin Sodium (Porcine) 5000 unit 5,000 unit BID SC Last administered on 08:52; Admin Dose 5,000 UNIT; Start 03/02/16 at 21:30 Potassium Chloride/Dextrose/ Sod Cl (D5-1/2ns + KCl 20 Meq) 1,000 ml @ 20 mls/ hr Q24H IV Last administered on 03/11/16 20:57; Admin Dose 20 MLS/HR; Start at 10:00 Vancomycin HCl (Vancomycin Oral Syringe) 250 mg Q6 PO Last administered on 03/13 11:16; Admin Dose 250 MG; Start 03/06/16 at 18:00 Fidaxomicin (Dificid) 200 mg BID PO Last administered on 03/13/16 08:39; Admin Dose 200 MG; Start 03/07/16 at 21:00 Potassium Chloride (Potassium Chloride Pwd/Soln) 20 meq BID PO Last administered on 03/13/16 08:39; Admin Dose 20 MEQ; Start 03/08/16 at 12:30 Voriconazole 200 mg 200 mg BID PO Last administered on 03/13/16 08:39; Admin Dose 200 MG; Start 03/09/16 at 21:00 Albumin Human (Albumin Human 25%) 100 ml @ 100 mls/hr DAILY IV Last administered on 03/13/16 08:48; Admin Dose 100 MLS/HR; Start 03/13/16 at 09:00 ; Stop 03/18/16 at 08:59 REMINGTON ZELAYA MD Mar 13, 2016 15:40
--- NOTE | 2016-03-13 16:19 | CONS ---
Date/Time of Note Date/Time of Note DATE: 03/13/16 TIME: 16:18 Assessment/Plan Assessment/Plan Additional Assessment/Plan Impression: 1. Pancolitis: likely ischemic. c.difficile negative, no infarct on laparotomy exam, culture, wbc in stool negative. 2. Fracture of the ribs. 3. Pneumothorax status post chest tube placement. 4. History of nicotine addiction. 5. Cervical spine injury. 6. History of fall. 7. Peripheral arterial disease. 8. Mild elevation of alkaline phosphatase, most probably related to alcoholic liver disease. 9. Anemia. 10. dysphagia on tube feeds 11.s/p exploratory laparotomy,no bowel resection 12.respiratory failure 13. renal failure,improving 14 steatohepatitis PLAN: 1. Continue antibiotics and anti-fungal per ID 2. continue tube feeds with nephro 3. Continue post op care per ID 4, await repeat swallow eval tomorrow to clear patient to start clear liquid diet. 5. Continue supportive care per primary and other consultants 6.pt.doesn't need Vancomycin and Flagyl.she is already on Dificid Consultation Date/Type/Reason Admit Date/Time Feb 24, 2016 at 04:06 Type of Consultation: pulm 24 HR Interval Summary Constitutional: improved Exam/Review of Systems Vital Signs Vitals Vital Signs Date Time Temp Pulse Resp B/P Pulse Ox O2 Delivery O2 Flow Rate FiO2 03/13/16 15:17 97.9 98 22 133/63 100 03/13/16 09:28 Nasal Cannula 3.0 03/12/16 17:25 32 Intake and Output 03/12/16 03/12/16 03/13/16 15:00 23:00 07:00 Intake Total 800 ml Output Total 1100 ml 1200 ml Balance -1100 ml -400 ml Exam Constitutional: alert, oriented, well developed Psych: nl mood/affect, no complaints Head: atraumatic, normocephalic Eyes: EOMI, PERRL, nl conjunctiva, nl lids, nl sclera ENMT: nl external ears & nose, nl lips & teeth, nl nasal mucosa & septum Neck: non-tender, supple Respiratory: clear to auscultation, normal air movement Cardiovascular: nl pulses, regular rate and rhythm Gastrointestinal: nl liver, spleen, non-tender, soft Musculoskeletal: nl extremities to inspection, nl gait and stance Extremities: normal pulses Neurological: [employer] II-XII intact, nl mental status, nl speech, nl strength Skin: nl turgor, No rash or lesions Lymph: nl lymph nodes Results Result Diagram: 03/13/1653203/13/1633 Results 24 hrs Laboratory Tests Test 03/13/16 05:33 Alanine Aminotransferase (ALT/SGPT) 44 Albumin 1.8 L Albumin/Globulin Ratio 0.66 Alkaline Phosphatase 226 H Anion Gap 6 L Aspartate Amino Transf (AST/SGOT) 38 Basophils # 0.1 Basophils % 0.6 Blood Morphology Comment Blood Urea Nitrogen 66 H Calcium Level 7.5 L Carbon Dioxide Level 23 Chloride Level 119 H Creatinine 1.28 H Direct Bilirubin Eosinophils # 0.0 Eosinophils % 0.0 Globulin 2.70 Glucose Level 129 Hematocrit 28.1 L Hemoglobin 9.6 L Indirect Bilirubin Lymphocytes # 1.1 Lymphocytes % 8.9 L Mean Corpuscular Hemoglobin 31.7 Mean Corpuscular Hemoglobin Concent 34.2 Mean Corpuscular Volume 92.6 Mean Platelet Volume 11.7 H Monocytes # 1.2 H Monocytes % 9.4 Neutrophils # 10.0 H Neutrophils % 81.1 H Nucleated Red Blood Cells # 0.0 Nucleated Red Blood Cells % 0.0 Platelet Count 240 Potassium Level 3.0 L Red Blood Count 3.04 L Red Cell Distribution Width 18.3 H Sodium Level 145 H Total Bilirubin Total Protein 4.5 L White Blood Count 12.4 H Medications Medications Current Medications Lorazepam (Ativan) 0.5 mg Q6H PRN IV ANXIETY Last administered on 03/13/16 01: 39; Admin Dose 0.5 MG; Start 02/24/16 at 02:00 Ondansetron HCl (Zofran Inj) 4 mg Q6H PRN IV NAUSEA AND/OR VOMITING Last administered on 03/01/16 13:17; Admin Dose 4 MG; Start 02/24/16 at 02:00 Nitroglycerin (Nitroglycerin (Sl Tab) 0.4 Mg) 1 tab Q5M PRN SL CHEST PAIN; Start 02/24/16 at 02:00 Hydralazine HCl (Apresoline) 10 mg Q6H PRN IV SBP > 160 Last administered on 05:19; Admin Dose 10 MG; Start 02/24/16 at 02:00 Labetalol HCl (Labetalol) 10 mg Q6 PRN IV ELEVATED BLOOD PRESSURE; Start at 23:00 Guaifenesin/ Dextromethorphan (Robitussin Dm Liquid Cup) 5 ml Q6 PRN PO COUGH Last administered on 02/27/16 18:12; Admin Dose 5 ML; Start 02/24/16 at 23:00 Nicotine (Nicoderm 21 Mg/ 24hr) 1 patch DAILY TRANSDERM Last administered on 08:46; Admin Dose 1 PATCH; Start 02/26/16 at 09:00 Levothyroxine Sodium 25 mcg 25 mcg DAILY@06 PO Last administered on 03/13/16 05:47; Admin Dose 25 MCG; Start 02/28/16 at 06:00 Metronidazole (Flagyl 500 Mg (Pmx)) 100 ml @ 100 mls/hr Q6 IVPB Last administered on 03/13/16 11:16; Admin Dose 100 MLS/HR; Start 02/28/16 at 13:30 Hydromorphone HCl (Dilaudid) 0.5 mg Q3 PRN IV PAIN Last administered on 14:54; Admin Dose 0.5 MG; Start 03/02/16 at 17:00 Heparin Sodium (Porcine) 5000 unit 5,000 unit BID SC Last administered on 08:52; Admin Dose 5,000 UNIT; Start 03/02/16 at 21:30 Potassium Chloride/Dextrose/ Sod Cl (D5-1/2ns + KCl 20 Meq) 1,000 ml @ 20 mls/ hr Q24H IV Last administered on 03/11/16 20:57; Admin Dose 20 MLS/HR; Start at 10:00 Vancomycin HCl (Vancomycin Oral Syringe) 250 mg Q6 PO Last administered on 03/13 11:16; Admin Dose 250 MG; Start 03/06/16 at 18:00 Fidaxomicin (Dificid) 200 mg BID PO Last administered on 03/13/16 08:39; Admin Dose 200 MG; Start 03/07/16 at 21:00 Potassium Chloride (Potassium Chloride Pwd/Soln) 20 meq BID PO Last administered on 03/13/16 08:39; Admin Dose 20 MEQ; Start 03/08/16 at 12:30 Voriconazole 200 mg 200 mg BID PO Last administered on 03/13/16 08:39; Admin Dose 200 MG; Start 03/09/16 at 21:00 Albumin Human (Albumin Human 25%) 100 ml @ 100 mls/hr DAILY IV Last administered on 03/13/16 08:48; Admin Dose 100 MLS/HR; Start 03/13/16 at 09:00 ; Stop 03/18/16 at 08:59 Potassium Chloride (Klor-Con 20) 20 meq BID PO ; Start 03/13/16 at 16:15 CHARISSA WILHELM MD Mar 13, 2016 16:19
[2016-03-13] MEDS: POTASSIUM CHLORIDE (SR) 20 MEQ TAB PO SCH ×3 (16:55→23:39)
--- NOTE | 2016-03-13 23:21 | PN ---
Date/Time of Note Date/Time of Note DATE: 03/13/16 TIME: 23:16 Assessment/Plan Lines/Catheters IV Catheter Type (from [facility]): PICC Line Francois in Place (from [facility]): Yes Assessment/Plan Chief Complaint/Hosp Course 1. Abdominal pain, with CT diagnosis of pancolitis, with significant leukocytosis and bandemia. s/p Lap exploration and only small mid transverse with min mottling. Bowel function. Improving -Antibiotics per ID -Judicious fluid management 2. Sepsis, multifactorial (pancolitis ? ischemic, urinary tract infection, pulmonary infiltrates, bacteremia). Improved -Antibiotic therapy. -Judicious fluid management. -Close monitoring. 3. Renal insufficiency secondary to sepsis. Improving Cr -Continue judicious fluid management. -Avoid nephrotoxic agents as possible. 4. Anemia, with recent hemothorax requiring VATS decortication. -Transfuse as needed. 5. Hypoalbuminemia. -Eventual nutritional optimization. 6. Hypernatremia -Correct with fluid management. 7. Hypertension. -Nutritional and medication optimization. 8. Hypothyroidism. -Replace hormone. 9. Hemopneumothorax, status post VATS. CT removed -followed by CT surgery. 10. Cervical spine injury, being maintained in brace by neurosurgery. 11. Hypokalemia -replete Thank you, Problems: Subjective 24 Hr Interval Summary Leukocytosis overall significantly improved. No f/c. No v. Bowel function. On tube feeds. Min bloated. No cough. No sz. No rash. Exam/Review of Systems Vital Signs Vitals Vital Signs Date Time Temp Pulse Resp B/P Pulse Ox O2 Delivery O2 Flow Rate FiO2 03/13/16 22:43 Nasal Cannula 03/13/16 20:02 91 03/13/16 18:51 97.7 16 139/61 99 03/13/16 17:00 3.0 03/12/16 17:25 32 Intake and Output 03/12/16 03/12/16 03/13/16 15:00 23:00 07:00 Intake Total 800 ml Output Total 1100 ml 1200 ml Balance -1100 ml -400 ml Exam Free Text/Dictation GENERAL: NAD HEENT: Pupils equal, reactive. No scleral icterus. Mucous membranes are somewhat dry. NECK: No crepitus. No JVD. PULMONARY: Normal respiratory effort ABDOMEN: Min tender. No rebound/guarding/rigidity. Min distended. EXTREMITIES: Trace edema. VASCULAR: Capillary refill is 2 seconds. NEUROLOGIC: Responsive SKIN: No rashes/jaundice. PSYCH: Normal affect Results Result Diagram: 03/13/16 0533 03/13/16 0533 CHRISTIANO JENNINGS MD Mar 13, 2016 23:21
[2016-03-14] VITALS (14 sets, daily range): BP systolic 129–162; BP diastolic 49–78; PULSE 86–101; RESP 18–20
[2016-03-14] MEDS: HYDROmorphONE 1 MG/ML SYG IV PRN ×5 (00:44→18:35)
[2016-03-14] MEDS: FUROSEMIDE 40 MG INJ IV SCH ×2 (05:36→17:30)
[2016-03-14] MEDS: LEVOTHYROXINE 25 MCG TAB PO SCH (05:36)
[2016-03-14] MEDS: VANCOMYCIN HCL 250 MG/5ML POSYG PO SCH ×3 (05:37→17:29)
[2016-03-14] MEDS: metroNIDAZOLE 500 MG/NS (PMX) 100 ML IVPB SCH ×3 (05:37→17:28)
[2016-03-14] MEDS: FIDAXOMICIN 200 MG TABLET PO SCH ×2 (08:32→21:05)
[2016-03-14] MEDS: VORICONAZOLE 200 MG TAB PO SCH ×2 (08:33→21:05)
[2016-03-14] MEDS: POTASSIUM CHLORIDE 20 MEQ POWDER FOR ORAL SOLN PO SCH ×2 (08:33→21:05)
[2016-03-14] MEDS: D5W-0.45 NACL + KCL 20 MEQ 1,000 ML IV SCH ×2 (08:34→12:29)
[2016-03-14] MEDS: NICOTINE (21 MG/24 HR) PATCH TRANSDERM SCH (08:34)
[2016-03-14] MEDS: HEPARIN 5,000 UNIT/0.5 ML SYG SC SCH ×2 (08:44→21:07)
[2016-03-14] MEDS: ALBUMIN HUMAN 25% 100 ML IV SCH (08:46)
--- NOTE | 2016-03-14 10:44 | CONS ---
Date/Time of Note Date/Time of Note DATE: 03/14/16 TIME: 10:41 Assessment/Plan Assessment/Plan Additional Assessment/Plan Assessment and recommendation; 1. Patient admitted with bowel obstruction underwent laparotomy resulting in respiratory failure no successfully weaned off from mechanical ventilation several days ago transferred to Med/Surg unit doing very well. 2. C. difficile colitis currently on Flagyl. 3. Underlying COPD. 4. Candiduria. Continue current treatment. Did have a detailed discussion the patient's son at bedside and answered all his questions. Consultation Date/Type/Reason Admit Date/Time Feb 24, 2016 at 04:06 Type of Consultation: pulm 24 HR Interval Summary Free Text/Dictation Patient condition is continually improving. Patient still complains of occasional abdominal pain which is exacerbated after eating. Denies any shortness of breath. Any cough. Any chest pain. Any wheezing. General examination; elderly lady, currently in no distress, awake and alert. Exam/Review of Systems Vital Signs Vitals Vital Signs Date Time Temp Pulse Resp B/P Pulse Ox O2 Delivery O2 Flow Rate FiO2 03/14/16 08:12 99 03/14/16 07:28 Nasal Cannula 3.0 03/14/16 07:05 98.1 18 151/78 97 03/12/16 17:25 32 Intake and Output 03/13/16 03/13/16 03/14/16 15:00 23:00 07:00 Intake Total 200 ml 855 ml 300 ml Output Total 1550 ml 1250 ml Balance 200 ml -695 ml -950 ml Exam HEENT examination; supple neck, no JVD. No lymphadenopathy. No thyromegaly. No neck masses. Pharynx is clear. Next Chest examination; diminished but clear breath sounds. S1-S2 audible no murmurs. Abdomen examination; mildly distended. Mildly tender. Bowel sounds audible. Dressings applied over laparotomy incision site with mild serosanguineous drainage. Extremity examination; upper extremities do not reveal any edema patient does have 1-2+ pitting edema lower extremities bilaterally however there has been substantial interval improvement. PRACTICE LEAD examination no focal deficit. Results Result Diagram: 03/13/16 0533 03/13/16 0533 Results 24 hrs Laboratory Tests Test 03/14/16 08:55 Lab Scanned Report REFERENCE LAB Medications Medications Current Medications Lorazepam (Ativan) 0.5 mg Q6H PRN IV ANXIETY Last administered on 03/13/16 20: 59; Admin Dose 0.5 MG; Start 02/24/16 at 02:00 Ondansetron HCl (Zofran Inj) 4 mg Q6H PRN IV NAUSEA AND/OR VOMITING Last administered on 03/01/16 13:17; Admin Dose 4 MG; Start 02/24/16 at 02:00 Nitroglycerin (Nitroglycerin (Sl Tab) 0.4 Mg) 1 tab Q5M PRN SL CHEST PAIN; Start 02/24/16 at 02:00 Hydralazine HCl (Apresoline) 10 mg Q6H PRN IV SBP > 160 Last administered on 05:19; Admin Dose 10 MG; Start 02/24/16 at 02:00 Labetalol HCl (Labetalol) 10 mg Q6 PRN IV ELEVATED BLOOD PRESSURE; Start at 23:00 Guaifenesin/ Dextromethorphan (Robitussin Dm Liquid Cup) 5 ml Q6 PRN PO COUGH Last administered on 02/27/16 18:12; Admin Dose 5 ML; Start 02/24/16 at 23:00 Nicotine (Nicoderm 21 Mg/ 24hr) 1 patch DAILY TRANSDERM Last administered on 08:34; Admin Dose 1 PATCH; Start 02/26/16 at 09:00 Levothyroxine Sodium 25 mcg 25 mcg DAILY@06 PO Last administered on 03/14/16 05:36; Admin Dose 25 MCG; Start 02/28/16 at 06:00 Metronidazole (Flagyl 500 Mg (Pmx)) 100 ml @ 100 mls/hr Q6 IVPB Last administered on 03/14/16 05:37; Admin Dose 100 MLS/HR; Start 02/28/16 at 13:30 Hydromorphone HCl (Dilaudid) 0.5 mg Q3 PRN IV PAIN Last administered on 00:44; Admin Dose 0.5 MG; Start 03/02/16 at 17:00 Heparin Sodium (Porcine) 5000 unit 5,000 unit BID SC Last administered on 08:44; Admin Dose 5,000 UNIT; Start 03/02/16 at 21:30 Potassium Chloride/Dextrose/ Sod Cl (D5-1/2ns + KCl 20 Meq) 1,000 ml @ 20 mls/ hr Q24H IV Last administered on 03/14/16 08:34; Admin Dose 20 MLS/HR; Start at 10:00 Vancomycin HCl (Vancomycin Oral Syringe) 250 mg Q6 PO Last administered on 03/14 05:37; Admin Dose 250 MG; Start 03/06/16 at 18:00 Fidaxomicin (Dificid) 200 mg BID PO Last administered on 03/14/16 08:32; Admin Dose 200 MG; Start 03/07/16 at 21:00 Potassium Chloride (Potassium Chloride Pwd/Soln) 20 meq BID PO Last administered on 03/14/16 08:33; Admin Dose 20 MEQ; Start 03/08/16 at 12:30 Voriconazole 200 mg 200 mg BID PO Last administered on 03/14/16 08:33; Admin Dose 200 MG; Start 03/09/16 at 21:00 Albumin Human (Albumin Human 25%) 100 ml @ 100 mls/hr DAILY IV Last administered on 03/14/16 08:46; Admin Dose 100 MLS/HR; Start 03/13/16 at 09:00 ; Stop 03/18/16 at 08:59 Potassium Chloride (Klor-Con 20) 20 meq BID PO Last administered on 03/13/16 23:39; Admin Dose 20 MEQ; Start 03/13/16 at 16:15 GAIL SPENCER Mar 14, 2016 10:44
[2016-03-14 11:22] LABS: POTASSIUM 3.6 mmol/L (3.5-5.1)
[2016-03-14 11:24] LABS: CREATININE 1.18 mg/dl (0.44-1.00)
--- NOTE | 2016-03-14 16:05 | PN ---
Date/Time of Note Date/Time of Note DATE: 03/14/16 TIME: 16:00 Assessment/Plan Lines/Catheters IV Catheter Type (from [facility]): PICC Line Francois in Place (from [facility]): Yes Assessment/Plan Chief Complaint/Hosp Course 1. Abdominal pain, with CT diagnosis of pancolitis, with significant leukocytosis and bandemia. s/p Lap exploration and only small mid transverse with min mottling. Bowel function. Improving. -Antibiotics per ID -Judicious fluid management 2. Sepsis, multifactorial (pancolitis ? ischemic, urinary tract infection, pulmonary infiltrates, bacteremia). Improved -Antibiotic therapy. -Judicious fluid management. -Close monitoring. 3. Renal insufficiency secondary to sepsis. Improving Cr -Continue judicious fluid management. -Avoid nephrotoxic agents as possible. 4. Anemia, with recent hemothorax requiring VATS decortication. -Transfuse as needed. 5. Hypoalbuminemia. -Eventual nutritional optimization. 6. Hypernatremia -Correct with fluid management. 7. Hypertension. -Nutritional and medication optimization. 8. Hypothyroidism. -Replace hormone. 9. Hemopneumothorax, status post VATS. CT removed -followed by CT surgery. 10. Cervical spine injury, being maintained in brace by neurosurgery. Thank you, Problems: Subjective 24 Hr Interval Summary Leukocytosis overall significantly improved. No f/c. No v. Bowel function. On tube feeds. Min bloated. No cough. No sz. No rash. Min serous drainage from the abdominal incision Exam/Review of Systems Vital Signs Vitals Vital Signs Date Time Temp Pulse Resp B/P Pulse Ox O2 Delivery O2 Flow Rate FiO2 03/14/16 14:56 97.9 87 18 97 03/14/16 07:28 Nasal Cannula 3.0 03/12/16 17:25 32 Intake and Output 03/13/16 03/13/16 03/14/16 15:00 23:00 07:00 Intake Total 200 ml 855 ml 300 ml Output Total 1550 ml 1250 ml Balance 200 ml -695 ml -950 ml Exam Free Text/Dictation GENERAL: NAD HEENT: Pupils equal, reactive. No scleral icterus. Mucous membranes are somewhat dry. NECK: No crepitus. No JVD. PULMONARY: Normal respiratory effort ABDOMEN: Min tender. No rebound/guarding/rigidity. Distended. Min serous leak from left abdominal incision. EXTREMITIES: Trace edema. VASCULAR: Capillary refill is 2 seconds. NEUROLOGIC: Responsive SKIN: No rashes/jaundice. PSYCH: Normal affect Results Result Diagram: 03/13/16 0533 03/14/16 1030 CHRISTIANO JENNINGS MD Mar 14, 2016 16:05
--- NOTE | 2016-03-14 17:19 | PN ---
Date/Time of Note Date/Time of Note DATE: 03/14/16 TIME: 17:18 Assessment/Plan VTE Prophylaxis VTE Prophylaxis Intervention: other Lines/Catheters IV Catheter Type (from [facility]): PICC Line Central line still needed: Yes Urinary Cath still in place: Yes Reason Cath still needed: other (indicate) Assessment/Plan Chief Complaint/Hosp Course 1. Left video-assisted thoracic surgery, total pulmonary decortication. 2.s/p Control of chest bleeding. 3. sepsis RESOLVING 4 s/p fall outside HOSPITAL 5 lung infilterate better 6 hyponatremia better 7 djd 8 ddd 9 hx htn 10 positive gold test 11 UTI 12HYPOTHYROIDISM 13 collites better 14 markos BETTER 15 atn better 16 pancolites 17 metabolic acidosis better 18 hypERKALEMIA plan labs id dr everett pain meds per pulmonary pt/ot albumin D5 W Problems: Subjective 24 Hr Interval Summary Respiratory: no complaints Cardiovascular: no complaints Gastrointestinal: no complaints Exam/Review of Systems Vital Signs Vitals Vital Signs Date Time Temp Pulse Resp B/P Pulse Ox O2 Delivery O2 Flow Rate FiO2 03/14/16 16:33 87 03/14/16 16:19 140/49 03/14/16 14:56 97.9 18 97 03/14/16 07:28 Nasal Cannula 3.0 03/12/16 17:25 32 Intake and Output 03/13/16 03/13/16 03/14/16 15:00 23:00 07:00 Intake Total 200 ml 855 ml 300 ml Output Total 1550 ml 1250 ml Balance 200 ml -695 ml -950 ml Exam Respiratory: clear to auscultation Cardiovascular: regular rate and rhythm Gastrointestinal: soft Extremities: edema (++) Results Result Diagram: 03/13/16 0533 03/14/16 1030 Results 24 hrs Laboratory Tests Test 03/14/16 08:55 03/14/16 10:30 Lab Scanned Report REFERENCE LAB Anion Gap 18 #H Blood Urea Nitrogen 65 H Calcium Level 8.0 L Carbon Dioxide Level 23 Chloride Level 117 H Creatinine 1.18 H Glucose Level 117 Potassium Level 3.6 Sodium Level 154 H Medications Medications Current Medications Lorazepam (Ativan) 0.5 mg Q6H PRN IV ANXIETY Last administered on 03/13/16t 20: 59; Admin Dose 0.5 MG; Start 02/24/16 at 02:00 Ondansetron HCl (Zofran Inj) 4 mg Q6H PRN IV NAUSEA AND/OR VOMITING Last administered on 03/01/16 13:17; Admin Dose 4 MG; Start 02/24/16 at 02:00 Nitroglycerin (Nitroglycerin (Sl Tab) 0.4 Mg) 1 tab Q5M PRN SL CHEST PAIN; Start 02/24/16 at 02:00 Hydralazine HCl (Apresoline) 10 mg Q6H PRN IV SBP > 160 Last administered on 05:19; Admin Dose 10 MG; Start 02/24/16 at 02:00 Labetalol HCl (Labetalol) 10 mg Q6 PRN IV ELEVATED BLOOD PRESSURE; Start at 23:00 Guaifenesin/ Dextromethorphan (Robitussin Dm Liquid Cup) 5 ml Q6 PRN PO COUGH Last administered on 02/27/16 18:12; Admin Dose 5 ML; Start 02/24/16 at 23:00 Nicotine (Nicoderm 21 Mg/ 24hr) 1 patch DAILY TRANSDERM Last administered on 08:34; Admin Dose 1 PATCH; Start 02/26/16 at 09:00 Levothyroxine Sodium 25 mcg 25 mcg DAILY@06 PO Last administered on 03/14/16 05:36; Admin Dose 25 MCG; Start 02/28/16 at 06:00 Metronidazole (Flagyl 500 Mg (Pmx)) 100 ml @ 100 mls/hr Q6 IVPB Last administered on 03/14/16 12:00; Admin Dose 100 MLS/HR; Start 02/28/16 at 13:30 Hydromorphone HCl (Dilaudid) 0.5 mg Q3 PRN IV PAIN Last administered on 15:09; Admin Dose 0.5 MG; Start 03/02/16 at 17:00 Heparin Sodium (Porcine) 5000 unit 5,000 unit BID SC Last administered on 08:44; Admin Dose 5,000 UNIT; Start 03/02/16 at 21:30 Potassium Chloride/Dextrose/ Sod Cl (D5-1/2ns + KCl 20 Meq) 1,000 ml @ 20 mls/ hr Q24H IV Last administered on 03/14/16 08:34; Admin Dose 20 MLS/HR; Start at 10:00 Vancomycin HCl (Vancomycin Oral Syringe) 250 mg Q6 PO Last administered on 03/14 12:00; Admin Dose 250 MG; Start 03/06/16 at 18:00 Fidaxomicin (Dificid) 200 mg BID PO Last administered on 03/14/16 08:32; Admin Dose 200 MG; Start 03/07/16 at 21:00 Potassium Chloride (Potassium Chloride Pwd/Soln) 20 meq BID PO Last administered on 03/14/16 08:33; Admin Dose 20 MEQ; Start 03/08/16 at 12:30 Voriconazole 200 mg 200 mg BID PO Last administered on 03/14/16 08:33; Admin Dose 200 MG; Start 03/09/16 at 21:00 Albumin Human (Albumin Human 25%) 100 ml @ 100 mls/hr DAILY IV Last administered on 03/14/16 08:46; Admin Dose 100 MLS/HR; Start 03/13/16 at 09:00 ; Stop 03/18/16 at 08:59 Potassium Chloride (Klor-Con 20) 20 meq BID PO Last administered on 03/13/16 23:39; Admin Dose 20 MEQ; Start 03/13/16 at 16:15 REMINGTON ZELAYA MD Mar 14, 2016 17:19
[2016-03-14] MEDS: POTASSIUM CHLORIDE 10 MEQ in DEXTROSE 5% 1,000 ML IV SCH (18:36)
--- NOTE | 2016-03-14 19:02 | PN ---
DATE: 03/14/2016 SUBJECTIVE: No acute events. The patient is lying comfortably in bed. No fevers. No labs this mo rning. ANTIMICROBIALS 1. Dificid. 1. Vancomycin oral. 2. Voriconazole oral. 3. Flagyl. INDWELLINGS: Francois. PHYSICAL EXAMINATION GENERAL: This is a chronically ill-appearing, elderly woman who is sleeping, arousable and in no di stress. HEENT: Head atraumatic, normocephalic. Sclerae are anicteric. Buccal mucosa pink, dry. NECK: Supple, trachea midline. CHEST: Rise symmetrical. Breath sounds diminished to bases. HEART: S1, S2. ABDOMEN: Soft. Bowel tones present. EXTREMITIES: Bilateral trace edema. SKIN: Positive for anasarca. ASSESSMENT 1. Resolving sepsis. 2. Pancolitis. 3. Status post a urinary tract infection with urine culture on 03/07 growing Ann glabrata, tayo ins on voriconazole. 4. Status post respiratory failure. 5. History of cervical spine injury. 6. History of rib fracture and pneumothorax status post graft with chest tube placement, removed. 7. Anemia. 8. Acute renal failure. PLAN: The patient remains stable, started on diet. She is followed by multiple consultants, white blood cell count tracing down. Continue present care. Continue antibiotics. Dictated By: PHOEBE BANDA VALUE ENGINEER for JUAN THOMAS/JOSUÉ Conf#: [id number] DID#: [id number]
[2016-03-14] MEDS: POTASSIUM CHLORIDE (SR) 20 MEQ TAB PO SCH (21:00)
[2016-03-14] MEDS: LORAZEPAM 2 MG INJ IV PRN (21:06)
[2016-03-15] VITALS (11 sets, daily range): BP systolic 133–161; BP diastolic 66–87; PULSE 87–108; RESP 18–22
[2016-03-15] MEDS: metroNIDAZOLE 500 MG/NS (PMX) 100 ML IVPB SCH ×5 (00:03→23:42)
[2016-03-15] MEDS: VANCOMYCIN HCL 250 MG/5ML POSYG PO SCH ×5 (00:06→23:45)
[2016-03-15] MEDS: LEVOTHYROXINE 25 MCG TAB PO SCH (05:39)
[2016-03-15] MEDS: FUROSEMIDE 40 MG INJ IV SCH (05:39)
[2016-03-15 06:25] LABS: BASOPHIL # 0.1 10^3/ul (0.0-0.1); BASOPHILS % 0.6 % (0.0-2.0); EOSINOPHILS % 0.1 % (0.0-7.0); HEMATOCRIT 28.9 % (37.0-47.0); HEMOGLOBIN 9.5 g/dl (12.0-16.0); LYMPHOCYTES # 0.8 10^3/ul (0.8-2.9); LYMPHOCYTES % 10.1 % (15.0-51.0); MEAN CORPUSCULAR HEMOGLOBIN 31.1 pg (29.0-33.0); MEAN CORPUSCULAR HGB CONC 32.8 g/dl (32.0-37.0); MEAN CORPUSCULAR VOLUME 94.7 fl (82.0-101.0); MEAN PLATELET VOLUME 10.9 fl (7.4-10.4); MONOCYTE # 0.7 10^3/ul (0.3-0.9); MONOCYTES % 8.7 % (0.0-11.0); NEUTROPHIL # 6.6 10^3/ul (1.6-7.5); NEUTROPHILS % 80.5 % (39.0-77.0); PLATELET COUNT 217 10^3/UL (140-440); RED BLOOD COUNT 3.05 10^6/ul (4.20-5.40); RED CELL DISTRIBUTION WIDTH 18.6 % (11.5-14.5); UNCORRECTED WBC 8.2 10^3/ul (4.8-10.8); WHITE BLOOD COUNT 8.2 10^3/ul (4.8-10.8)
[2016-03-15 06:42] LABS: POTASSIUM 3.2 mmol/L (3.5-5.1)
[2016-03-15 06:44] LABS: CONDITION 1; CREATININE 1.09 mg/dl (0.44-1.00); LH ANALYZER COMMENTS 1; SUSPECT 1
[2016-03-15 06:45] LABS: ALBUMIN/GLOBULIN RATIO 0.8; CALCIUM 7.6 mg/dl (8.4-10.2); TOTAL PROTEIN 4.5 g/dl (6.1-8.1)
[2016-03-15] MEDS: POTASSIUM CHLORIDE 20 MEQ POWDER FOR ORAL SOLN PO SCH ×2 (08:13→21:33)
[2016-03-15] MEDS: VORICONAZOLE 200 MG TAB PO SCH ×2 (08:13→21:32)
[2016-03-15] MEDS: FIDAXOMICIN 200 MG TABLET PO SCH ×2 (08:13→21:32)
[2016-03-15] MEDS: NICOTINE (21 MG/24 HR) PATCH TRANSDERM SCH (08:13)
[2016-03-15] MEDS: ALBUMIN HUMAN 25% 100 ML IV SCH (08:13)
[2016-03-15] MEDS: HEPARIN 5,000 UNIT/0.5 ML SYG SC SCH ×2 (08:14→21:52)
[2016-03-15] MEDS: HYDROmorphONE 1 MG/ML SYG IV PRN ×4 (09:03→21:33)
--- NOTE | 2016-03-15 11:05 | CONS ---
Date/Time of Note Date/Time of Note DATE: 03/15/16 TIME: 11:01 Assessment/Plan Assessment/Plan Additional Assessment/Plan Assessment and recommendations; 1. Patient admitted with bowel obstruction underwent laparotomy. 2. Status post respiratory failure. 3. C. difficile colitis. Next 4. Mild hypernatremia and hyperchloremia. Likely exacerbated by diuretic use. 5. Underlying COPD. Continue current treatment. Hold Lasix for now. Continue intravenous Flagyl, continue albumin. I did have a detailed discussion with the patient's son at bedside and answered all his questions. Patient would benefit from transfer to a rehab facility. Consultation Date/Type/Reason Admit Date/Time Feb 24, 2016 at 04:06 Type of Consultation: pulm 24 HR Interval Summary Free Text/Dictation Patient condition is stable. Still complains of abdominal pain upon eating. Denies any shortness of breath. Any wheezing. Any fever, chills. ; General examination; elderly lady, awake, alert currently in no distress. Exam/Review of Systems Vital Signs Vitals Vital Signs Date Time Temp Pulse Resp B/P Pulse Ox O2 Delivery O2 Flow Rate FiO2 03/15/16 10:01 Nasal Cannula 3.0 03/15/16 08:07 96 03/15/16 07:13 97.9 22 140/87 97 03/12/16 17:25 32 Intake and Output 03/14/16 03/14/16 03/15/16 15:00 23:00 07:00 Intake Total 1550 ml 400 ml Output Total 200 ml 950 ml Balance 1350 ml -550 ml Exam H EENT examination; supple neck, no JVD. Pharynx is clear. No thyromegaly. Next Chest examination; diminished but clear breath sounds bilaterally. S1-S2 audible no murmurs. Abdomen examination; soft, mildly protuberant. Mildly tender. Multiple well- healed scars are present. Bowel sounds audible in all 4 quadrants. Extremity examination; 2+ pitting edema lower extremities bilaterally. SUPERVISOR WHEEL SHOP examination; no focal deficit. Results Result Diagram: 03/15/16 0545 03/15/16 0545 Results 24 hrs Laboratory Tests Test 03/15/16 05:45 Alanine Aminotransferase (ALT/SGPT) 35 Albumin 2.0 L Albumin/Globulin Ratio 0.80 Alkaline Phosphatase 88 Anion Gap 13 Aspartate Amino Transf (AST/SGOT) 33 Basophils # 0.1 Basophils % 0.6 Blood Morphology Comment Blood Urea Nitrogen 58 H Calcium Level 7.6 L Carbon Dioxide Level 23 Chloride Level 118 H Creatinine 1.09 H Direct Bilirubin Eosinophils # 0.0 Eosinophils % 0.1 Globulin 2.50 Glucose Level 102 Hematocrit 28.9 L Hemoglobin 9.5 L Indirect Bilirubin Lymphocytes # 0.8 Lymphocytes % 10.1 L Mean Corpuscular Hemoglobin 31.1 Mean Corpuscular Hemoglobin Concent 32.8 Mean Corpuscular Volume 94.7 Mean Platelet Volume 10.9 H Monocytes # 0.7 Monocytes % 8.7 Neutrophils # 6.6 Neutrophils % 80.5 H Nucleated Red Blood Cells # 0.0 Nucleated Red Blood Cells % 0.0 Platelet Count 217 Potassium Level 3.2 L Red Blood Count 3.05 L Red Cell Distribution Width 18.6 H Sodium Level 151 H Total Bilirubin Total Protein 4.5 L White Blood Count 8.2 # Medications Medications Current Medications Lorazepam (Ativan) 0.5 mg Q6H PRN IV ANXIETY Last administered on 03/14/16 21: 06; Admin Dose 0.5 MG; Start 02/24/16 at 02:00 Ondansetron HCl (Zofran Inj) 4 mg Q6H PRN IV NAUSEA AND/OR VOMITING Last administered on 03/01/16 13:17; Admin Dose 4 MG; Start 02/24/16 at 02:00 Nitroglycerin (Nitroglycerin (Sl Tab) 0.4 Mg) 1 tab Q5M PRN SL CHEST PAIN; Start 02/24/16 at 02:00 Hydralazine HCl (Apresoline) 10 mg Q6H PRN IV SBP > 160 Last administered on 05:19; Admin Dose 10 MG; Start 02/24/16 at 02:00 Labetalol HCl (Labetalol) 10 mg Q6 PRN IV ELEVATED BLOOD PRESSURE; Start at 23:00 Guaifenesin/ Dextromethorphan (Robitussin Dm Liquid Cup) 5 ml Q6 PRN PO COUGH Last administered on 02/27/16 18:12; Admin Dose 5 ML; Start 02/24/16 at 23:00 Nicotine (Nicoderm 21 Mg/ 24hr) 1 patch DAILY TRANSDERM Last administered on 08:13; Admin Dose 1 PATCH; Start 02/26/16 at 09:00 Levothyroxine Sodium 25 mcg 25 mcg DAILY@06 PO Last administered on 03/15/16 05 :39; Admin Dose 25 MCG; Start 02/28/16 at 06:00 Metronidazole (Flagyl 500 Mg (Pmx)) 100 ml @ 100 mls/hr Q6 IVPB Last administered on 03/15/16 05:39; Admin Dose 100 MLS/HR; Start 02/28/16 at 13:30 Hydromorphone HCl (Dilaudid) 0.5 mg Q3 PRN IV PAIN Last administered on 09:03; Admin Dose 0.5 MG; Start 03/02/16 at 17:00 Heparin Sodium (Porcine) (Heparin (5000 Units/0.5 ml)) 5,000 unit BID SC Last administered on 03/15/16 08:14; Admin Dose 5,000 UNIT; Start 03/02/16 at 21:30 Vancomycin HCl (Vancomycin Oral Syringe) 250 mg Q6 PO Last administered on 05:39; Admin Dose 250 MG; Start 03/06/16 at 18:00 Fidaxomicin (Dificid) 200 mg BID PO Last administered on 03/15/16 08:13; Admin Dose 200 MG; Start 03/07/16 at 21:00 Potassium Chloride (Potassium Chloride Pwd/Soln) 20 meq BID PO Last administered on 03/15/16 08:13; Admin Dose 20 MEQ; Start 03/08/16 at 12:30 Voriconazole 200 mg 200 mg BID PO Last administered on 03/15/16 08:13; Admin Dose 200 MG; Start 03/09/16 at 21:00 Albumin Human 100 ml @ 100 mls/hr DAILY IV Last administered on 03/15/16 08:13 ; Admin Dose 100 MLS/HR; Start 03/13/16 at 09:00; Stop 03/18/16 at 08:59 Potassium Chloride/Dextrose (KCl/D5W) 1,005 ml @ 30 mls/hr Q24H IV Last administered on 03/14/16 18:36; Admin Dose 30 MLS/HR; Start 03/14/16 at 18:30 GAIL SPENCER Mar 15, 2016 11:05
[2016-03-15] MEDS ORDERED: POTASSIUM CHLORIDE 250 ML IVPB ONE (13:30)
--- NOTE | 2016-03-15 14:13 | CONS ---
Date/Time of Note Date/Time of Note DATE: 03/15/16 TIME: 14:13 Assessment/Plan Assessment/Plan Additional Assessment/Plan Additional Assessment/Plan Impression: 1. Pancolitis: likely ischemic. c.difficile negative, no infarct on laparotomy exam, culture, wbc in stool negative. 2. Fracture of the ribs. 3. Pneumothorax status post chest tube placement. 4. History of nicotine addiction. 5. Cervical spine injury. 6. History of fall. 7. Peripheral arterial disease. 8. Mild elevation of alkaline phosphatase, most probably related to alcoholic liver disease. 9. Anemia. 10. dysphagia on tube feeds 11.s/p exploratory laparotomy,no bowel resection 12.respiratory failure 13. renal failure,improving 14 steatohepatitis PLAN: 1. Continue antibiotics and anti-fungal per ID 2. continue tube feeds with nephro 3. Continue post op care per ID 4, await repeat swallow eval tomorrow to clear patient to start clear liquid diet. 5. Continue supportive care per primary and other consultants 6.pt.doesn't need Vancomycin and Flagyl.she is already on Dificid Consultation Date/Type/Reason Admit Date/Time Feb 24, 2016 at 04:06 Type of Consultation: pulm 24 HR Interval Summary Constitutional: improved Exam/Review of Systems Vital Signs Vitals Vital Signs Date Time Temp Pulse Resp B/P Pulse Ox O2 Delivery O2 Flow Rate FiO2 03/15/16 12:07 89 03/15/16 11:12 97.8 18 147/66 100 03/15/16 10:01 Nasal Cannula 3.0 03/12/16 17:25 32 Intake and Output 03/14/16 03/14/16 03/15/16 15:00 23:00 07:00 Intake Total 1550 ml 400 ml Output Total 200 ml 950 ml Balance 1350 ml -550 ml Exam Constitutional: alert, oriented, well developed Psych: nl mood/affect, no complaints Head: atraumatic, normocephalic Eyes: EOMI, PERRL, nl conjunctiva, nl lids, nl sclera ENMT: nl external ears & nose, nl lips & teeth, nl nasal mucosa & septum Neck: non-tender, supple Respiratory: clear to auscultation, normal air movement Cardiovascular: nl pulses, regular rate and rhythm Gastrointestinal: nl liver, spleen, non-tender, soft Musculoskeletal: nl extremities to inspection, nl gait and stance Extremities: normal pulses Neurological: BUILDING SURVEYOR II-XII intact, nl mental status, nl speech, nl strength Skin: nl turgor, No rash or lesions Lymph: nl lymph nodes Results Result Diagram: 03/15/1645 03/15/1645 Results 24 hrs Laboratory Tests Test 03/15/16 05:45 Alanine Aminotransferase (ALT/SGPT) 35 Albumin 2.0 L Albumin/Globulin Ratio 0.80 Alkaline Phosphatase 88 Anion Gap 13 Aspartate Amino Transf (AST/SGOT) 33 Basophils # 0.1 Basophils % 0.6 Blood Morphology Comment Blood Urea Nitrogen 58 H Calcium Level 7.6 L Carbon Dioxide Level 23 Chloride Level 118 H Creatinine 1.09 H Direct Bilirubin Eosinophils # 0.0 Eosinophils % 0.1 Globulin 2.50 Glucose Level 102 Hematocrit 28.9 L Hemoglobin 9.5 L Indirect Bilirubin Lymphocytes # 0.8 Lymphocytes % 10.1 L Mean Corpuscular Hemoglobin 31.1 Mean Corpuscular Hemoglobin Concent 32.8 Mean Corpuscular Volume 94.7 Mean Platelet Volume 10.9 H Monocytes # 0.7 Monocytes % 8.7 Neutrophils # 6.6 Neutrophils % 80.5 H Nucleated Red Blood Cells # 0.0 Nucleated Red Blood Cells % 0.0 Platelet Count 217 Potassium Level 3.2 L Red Blood Count 3.05 L Red Cell Distribution Width 18.6 H Sodium Level 151 H Total Bilirubin Total Protein 4.5 L White Blood Count 8.2 # Medications Medications Current Medications Lorazepam (Ativan) 0.5 mg Q6H PRN IV ANXIETY Last administered on 03/14/16 21: 06; Admin Dose 0.5 MG; Start 02/24/16 at 02:00 Ondansetron HCl (Zofran Inj) 4 mg Q6H PRN IV NAUSEA AND/OR VOMITING Last administered on 03/01/16 13:17; Admin Dose 4 MG; Start 02/24/16 at 02:00 Nitroglycerin (Nitroglycerin (Sl Tab) 0.4 Mg) 1 tab Q5M PRN SL CHEST PAIN; Start 02/24/16 at 02:00 Hydralazine HCl (Apresoline) 10 mg Q6H PRN IV SBP > 160 Last administered on 05:19; Admin Dose 10 MG; Start 02/24/16 at 02:00 Labetalol HCl (Labetalol) 10 mg Q6 PRN IV ELEVATED BLOOD PRESSURE; Start at 23:00 Guaifenesin/ Dextromethorphan (Robitussin Dm Liquid Cup) 5 ml Q6 PRN PO COUGH Last administered on 02/27/16 18:12; Admin Dose 5 ML; Start 02/24/16 at 23:00 Nicotine (Nicoderm 21 Mg/ 24hr) 1 patch DAILY TRANSDERM Last administered on 08:13; Admin Dose 1 PATCH; Start 02/26/16 at 09:00 Levothyroxine Sodium 25 mcg 25 mcg DAILY@06 PO Last administered on 03/15/16 05 :39; Admin Dose 25 MCG; Start 02/28/16 at 06:00 Metronidazole (Flagyl 500 Mg (Pmx)) 100 ml @ 100 mls/hr Q6 IVPB Last administered on 03/15/16 12:09; Admin Dose 100 MLS/HR; Start 02/28/16 at 13:30 Hydromorphone HCl (Dilaudid) 0.5 mg Q3 PRN IV PAIN Last administered on 13:50; Admin Dose 0.5 MG; Start 03/02/16 at 17:00 Heparin Sodium (Porcine) (Heparin (5000 Units/0.5 ml)) 5,000 unit BID SC Last administered on 03/15/16 08:14; Admin Dose 5,000 UNIT; Start 03/02/16 at 21:30 Vancomycin HCl (Vancomycin Oral Syringe) 250 mg Q6 PO Last administered on 12:09; Admin Dose 250 MG; Start 03/06/16 at 18:00 Fidaxomicin (Dificid) 200 mg BID PO Last administered on 03/15/16 08:13; Admin Dose 200 MG; Start 03/07/16 at 21:00 Potassium Chloride (Potassium Chloride Pwd/Soln) 20 meq BID PO Last administered on 03/15/16 08:13; Admin Dose 20 MEQ; Start 03/08/16 at 12:30 Voriconazole 200 mg 200 mg BID PO Last administered on 03/15/16 08:13; Admin Dose 200 MG; Start 03/09/16 at 21:00 Albumin Human 100 ml @ 100 mls/hr DAILY IV Last administered on 03/15/16 08:13 ; Admin Dose 100 MLS/HR; Start 03/13/16 at 09:00; Stop 03/18/16 at 08:59 Potassium Chloride 10 meq/ Dextrose 1,005 ml @ 30 mls/hr Q24H IV Last administered on 03/14/16 18:36; Admin Dose 30 MLS/HR; Start 03/14/16 at 18:30 Potassium Chloride (KCl 40 MEQ/250 ML NS) 250 ml @ 62.5 mls/hr ONCE ONCE IVPB ; Start 03/15/16 at 13:30; Stop 03/15/16 at 17:29 CHARISSA WILHELM MD Mar 15, 2016 14:13
--- NOTE | 2016-03-15 16:08 | CONS ---
Date/Time of Note Date/Time of Note DATE: 03/15/16 TIME: 16:07 Assessment/Plan Assessment/Plan Additional Assessment/Plan Additional Assessment/Plan Additional Assessment/Plan Impression: 1. Pancolitis: likely ischemic. c.difficile negative, no infarct on laparotomy exam, culture, wbc in stool negative. 2. Fracture of the ribs. 3. Pneumothorax status post chest tube placement. 4. History of nicotine addiction. 5. Cervical spine injury. 6. History of fall. 7. Peripheral arterial disease. 8. Mild elevation of alkaline phosphatase, most probably related to alcoholic liver disease. 9. Anemia. 10. dysphagia on tube feeds 11.s/p exploratory laparotomy,no bowel resection 12.respiratory failure 13. renal failure,improving 14 steatohepatitis PLAN: 1. Continue antibiotics and anti-fungal per ID 2. continue tube feeds with nephro 3. Continue post op care per ID 4, await repeat swallow eval tomorrow to clear patient to start clear liquid diet. 5. Continue supportive care per primary and other consultants 6.Bentyl Consultation Date/Type/Reason Admit Date/Time Feb 24, 2016 at 04:06 Type of Consultation: pulm 24 HR Interval Summary Free Text/Dictation abdominal pain Exam/Review of Systems Vital Signs Vitals Vital Signs Date Time Temp Pulse Resp B/P Pulse Ox O2 Delivery O2 Flow Rate FiO2 03/15/16 15:15 98.2 78 18 140/68 97 03/15/16 10:01 Nasal Cannula 3.0 03/12/16 17:25 32 Intake and Output 03/14/16 03/14/16 03/15/16 15:00 23:00 07:00 Intake Total 1550 ml 400 ml Output Total 200 ml 950 ml Balance 1350 ml -550 ml Exam Constitutional: alert, oriented, well developed Psych: nl mood/affect, no complaints Head: atraumatic, normocephalic Eyes: EOMI, PERRL, nl conjunctiva, nl lids, nl sclera ENMT: nl external ears & nose, nl lips & teeth, nl nasal mucosa & septum Neck: non-tender, supple Respiratory: clear to auscultation, normal air movement Cardiovascular: nl pulses, regular rate and rhythm Gastrointestinal: nl liver, spleen, non-tender, soft Musculoskeletal: nl extremities to inspection, nl gait and stance Extremities: normal pulses Neurological: DELINQUENCY PREVENTION SOCIAL WORKER II-XII intact, nl mental status, nl speech, nl strength Skin: nl turgor, No rash or lesions Lymph: nl lymph nodes Results Result Diagram: 03/15/1645 03/15/1645 Results 24 hrs Laboratory Tests Test 03/15/16 05:45 Alanine Aminotransferase (ALT/SGPT) 35 Albumin 2.0 L Albumin/Globulin Ratio 0.80 Alkaline Phosphatase 88 Anion Gap 13 Aspartate Amino Transf (AST/SGOT) 33 Basophils # 0.1 Basophils % 0.6 Blood Morphology Comment Blood Urea Nitrogen 58 H Calcium Level 7.6 L Carbon Dioxide Level 23 Chloride Level 118 H Creatinine 1.09 H Direct Bilirubin Eosinophils # 0.0 Eosinophils % 0.1 Globulin 2.50 Glucose Level 102 Hematocrit 28.9 L Hemoglobin 9.5 L Indirect Bilirubin Lymphocytes # 0.8 Lymphocytes % 10.1 L Mean Corpuscular Hemoglobin 31.1 Mean Corpuscular Hemoglobin Concent 32.8 Mean Corpuscular Volume 94.7 Mean Platelet Volume 10.9 H Monocytes # 0.7 Monocytes % 8.7 Neutrophils # 6.6 Neutrophils % 80.5 H Nucleated Red Blood Cells # 0.0 Nucleated Red Blood Cells % 0.0 Platelet Count 217 Potassium Level 3.2 L Red Blood Count 3.05 L Red Cell Distribution Width 18.6 H Sodium Level 151 H Total Bilirubin Total Protein 4.5 L White Blood Count 8.2 # Medications Medications Current Medications Lorazepam (Ativan) 0.5 mg Q6H PRN IV ANXIETY Last administered on 03/14/16 21: 06; Admin Dose 0.5 MG; Start 02/24/16 at 02:00 Ondansetron HCl (Zofran Inj) 4 mg Q6H PRN IV NAUSEA AND/OR VOMITING Last administered on 03/01/16 13:17; Admin Dose 4 MG; Start 02/24/16 at 02:00 Nitroglycerin (Nitroglycerin (Sl Tab) 0.4 Mg) 1 tab Q5M PRN SL CHEST PAIN; Start 02/24/16 at 02:00 Hydralazine HCl (Apresoline) 10 mg Q6H PRN IV SBP > 160 Last administered on 05:19; Admin Dose 10 MG; Start 02/24/16 at 02:00 Labetalol HCl (Labetalol) 10 mg Q6 PRN IV ELEVATED BLOOD PRESSURE; Start at 23:00 Guaifenesin/ Dextromethorphan (Robitussin Dm Liquid Cup) 5 ml Q6 PRN PO COUGH Last administered on 02/27/16 18:12; Admin Dose 5 ML; Start 02/24/16 at 23:00 Nicotine (Nicoderm 21 Mg/ 24hr) 1 patch DAILY TRANSDERM Last administered on 08:13; Admin Dose 1 PATCH; Start 02/26/16 at 09:00 Levothyroxine Sodium 25 mcg 25 mcg DAILY@06 PO Last administered on 03/15/16 05 :39; Admin Dose 25 MCG; Start 02/28/16 at 06:00 Metronidazole (Flagyl 500 Mg (Pmx)) 100 ml @ 100 mls/hr Q6 IVPB Last administered on 03/15/16 12:09; Admin Dose 100 MLS/HR; Start 02/28/16 at 13:30 Hydromorphone HCl (Dilaudid) 0.5 mg Q3 PRN IV PAIN Last administered on 13:50; Admin Dose 0.5 MG; Start 03/02/16 at 17:00 Heparin Sodium (Porcine) (Heparin (5000 Units/0.5 ml)) 5,000 unit BID SC Last administered on 03/15/16 08:14; Admin Dose 5,000 UNIT; Start 03/02/16 at 21:30 Vancomycin HCl (Vancomycin Oral Syringe) 250 mg Q6 PO Last administered on 12:09; Admin Dose 250 MG; Start 03/06/16 at 18:00 Fidaxomicin (Dificid) 200 mg BID PO Last administered on 03/15/16 08:13; Admin Dose 200 MG; Start 03/07/16 at 21:00 Potassium Chloride (Potassium Chloride Pwd/Soln) 20 meq BID PO Last administered on 03/15/16 08:13; Admin Dose 20 MEQ; Start 03/08/16 at 12:30 Voriconazole 200 mg 200 mg BID PO Last administered on 03/15/16 08:13; Admin Dose 200 MG; Start 03/09/16 at 21:00 Albumin Human 100 ml @ 100 mls/hr DAILY IV Last administered on 03/15/16 08:13 ; Admin Dose 100 MLS/HR; Start 03/13/16 at 09:00; Stop 03/18/16 at 08:59 Potassium Chloride 10 meq/ Dextrose 1,005 ml @ 30 mls/hr Q24H IV Last administered on 03/14/16t 18:36; Admin Dose 30 MLS/HR; Start 03/14/16 at 18:30 Potassium Chloride (KCl 40 MEQ/250 ML NS) 250 ml @ 62.5 mls/hr ONCE ONCE IVPB ; Start 03/15/16 at 13:30; Stop 03/15/16 at 17:29 CHARISSA WILHELM MD Mar 15, 2016 16:08
[2016-03-15] MEDS: POTASSIUM CHLORIDE 10 MEQ in DEXTROSE 5% 1,000 ML IV SCH (18:30)
--- NOTE | 2016-03-15 20:06 | CONS ---
Date/Time of Note Date/Time of Note DATE: 03/15/16 TIME: 20:04 Assessment/Plan Assessment/Plan Chief Complaint/Hosp Course SUBJECTIVE: No acute events. The patient is alert, lying comfortably in bed. No fevers. ANTIMICROBIALS 1. Dificid. 1. Vancomycin oral. 2. Voriconazole oral. 3. Flagyl. INDWELLINGS: Francois. PHYSICAL EXAMINATION GENERAL: This is a chronically ill-appearing, elderly woman who is sleeping, arousable and in no distress. HEENT: Head atraumatic, normocephalic. Sclerae are anicteric. Buccal mucosa pink, dry. NECK: Supple, trachea midline. CHEST: Rise symmetrical. Breath sounds diminished to bases. HEART: S1, S2. ABDOMEN: Soft. Bowel tones present. EXTREMITIES: Bilateral trace edema. SKIN: Positive for anasarca. ASSESSMENT 1. Resolving sepsis. 2. Pancolitis. 3. Status post a urinary tract infection with urine culture on 03/07 growing Ann glabrata, remains on voriconazole. 4. Status post respiratory failure. 5. History of cervical spine injury. 6. History of rib fracture and pneumothorax status post graft with chest tube placement, removed. 7. Anemia. 8. Acute renal failure. PLAN: Improving, tolerates diet, no fevers, wbc tracing down, continue present care, complete abx. DW son at bedside Problems: Consultation Date/Type/Reason Admit Date/Time Feb 24, 2016 at 04:06 Type of Consultation: id Exam/Review of Systems Vital Signs Vitals Vital Signs Date Time Temp Pulse Resp B/P Pulse Ox O2 Delivery O2 Flow Rate FiO2 03/15/16 19:45 97.6 92 18 161/67 98 03/15/16 10:01 Nasal Cannula 3.0 03/12/16 17:25 32 Intake and Output 03/14/16 03/14/16 03/15/16 15:00 23:00 07:00 Intake Total 1550 ml 400 ml Output Total 200 ml 950 ml Balance 1350 ml -550 ml Results Result Diagram: 03/15/16 0545 03/15/16 0545 Results 24 hrs Laboratory Tests Test 03/15/16 05:45 Alanine Aminotransferase (ALT/SGPT) 35 Albumin 2.0 L Albumin/Globulin Ratio 0.80 Alkaline Phosphatase 88 Anion Gap 13 Aspartate Amino Transf (AST/SGOT) 33 Basophils # 0.1 Basophils % 0.6 Blood Morphology Comment Blood Urea Nitrogen 58 H Calcium Level 7.6 L Carbon Dioxide Level 23 Chloride Level 118 H Creatinine 1.09 H Direct Bilirubin Eosinophils # 0.0 Eosinophils % 0.1 Globulin 2.50 Glucose Level 102 Hematocrit 28.9 L Hemoglobin 9.5 L Indirect Bilirubin Lymphocytes # 0.8 Lymphocytes % 10.1 L Mean Corpuscular Hemoglobin 31.1 Mean Corpuscular Hemoglobin Concent 32.8 Mean Corpuscular Volume 94.7 Mean Platelet Volume 10.9 H Monocytes # 0.7 Monocytes % 8.7 Neutrophils # 6.6 Neutrophils % 80.5 H Nucleated Red Blood Cells # 0.0 Nucleated Red Blood Cells % 0.0 Platelet Count 217 Potassium Level 3.2 L Red Blood Count 3.05 L Red Cell Distribution Width 18.6 H Sodium Level 151 H Total Bilirubin Total Protein 4.5 L White Blood Count 8.2 # Medications Medications Current Medications Lorazepam (Ativan) 0.5 mg Q6H PRN IV ANXIETY Last administered on 03/14/16 21: 06; Admin Dose 0.5 MG; Start 02/24/16 at 02:00 Ondansetron HCl (Zofran Inj) 4 mg Q6H PRN IV NAUSEA AND/OR VOMITING Last administered on 03/01/16 13:17; Admin Dose 4 MG; Start 02/24/16 at 02:00 Nitroglycerin (Nitroglycerin (Sl Tab) 0.4 Mg) 1 tab Q5M PRN SL CHEST PAIN; Start 02/24/16 at 02:00 Hydralazine HCl (Apresoline) 10 mg Q6H PRN IV SBP > 160 Last administered on 05:19; Admin Dose 10 MG; Start 02/24/16 at 02:00 Labetalol HCl (Labetalol) 10 mg Q6 PRN IV ELEVATED BLOOD PRESSURE; Start at 23:00 Guaifenesin/ Dextromethorphan (Robitussin Dm Liquid Cup) 5 ml Q6 PRN PO COUGH Last administered on 02/27/16 18:12; Admin Dose 5 ML; Start 02/24/16 at 23:00 Nicotine (Nicoderm 21 Mg/ 24hr) 1 patch DAILY TRANSDERM Last administered on 08:13; Admin Dose 1 PATCH; Start 02/26/16 at 09:00 Levothyroxine Sodium 25 mcg 25 mcg DAILY@06 PO Last administered on 03/15/16 05 :39; Admin Dose 25 MCG; Start 02/28/16 at 06:00 Metronidazole (Flagyl 500 Mg (Pmx)) 100 ml @ 100 mls/hr Q6 IVPB Last administered on 03/15/16 18:47; Admin Dose 100 MLS/HR; Start 02/28/16 at 13:30 Hydromorphone HCl (Dilaudid) 0.5 mg Q3 PRN IV PAIN Last administered on 17:21; Admin Dose 0.5 MG; Start 03/02/16 at 17:00 Heparin Sodium (Porcine) (Heparin (5000 Units/0.5 ml)) 5,000 unit BID SC Last administered on 03/15/16 08:14; Admin Dose 5,000 UNIT; Start 03/02/16 at 21:30 Vancomycin HCl (Vancomycin Oral Syringe) 250 mg Q6 PO Last administered on 18:47; Admin Dose 250 MG; Start 03/06/16 at 18:00 Fidaxomicin (Dificid) 200 mg BID PO Last administered on 03/15/16 08:13; Admin Dose 200 MG; Start 03/07/16 at 21:00 Potassium Chloride (Potassium Chloride Pwd/Soln) 20 meq BID PO Last administered on 03/15/16 08:13; Admin Dose 20 MEQ; Start 03/08/16 at 12:30 Voriconazole 200 mg 200 mg BID PO Last administered on 03/15/16 08:13; Admin Dose 200 MG; Start 03/09/16 at 21:00 Albumin Human 100 ml @ 100 mls/hr DAILY IV Last administered on 03/15/16 08:13 ; Admin Dose 100 MLS/HR; Start 03/13/16 at 09:00; Stop 03/18/16 at 08:59 Potassium Chloride/Dextrose (KCl/D5W) 1,005 ml @ 30 mls/hr Q24H IV Last administered on 03/14/16 18:36; Admin Dose 30 MLS/HR; Start 03/14/16 at 18:30 Dicyclomine HCl (Bentyl) 10 mg BID PO ; Start 03/15/16 at 21:00 PHOEBE BANDA NP Mar 15, 2016 20:06
[2016-03-15] MEDS: DICYCLOMINE 10 MG CAP PO SCH (21:32)
--- NOTE | 2016-03-15 23:28 | PN ---
Date/Time of Note Date/Time of Note DATE: 03/15/16 TIME: 23:26 Assessment/Plan Lines/Catheters IV Catheter Type (from [facility]): Central Line Francois in Place (from [facility]): Yes Assessment/Plan Chief Complaint/Hosp Course 1. Abdominal pain, with CT diagnosis of pancolitis, with significant leukocytosis and bandemia. s/p Lap exploration and only small mid transverse with min mottling. Bowel function. Improving. -Antibiotics per ID -Judicious fluid management 2. Sepsis, multifactorial (pancolitis ? ischemic, urinary tract infection, pulmonary infiltrates, bacteremia). Improved -Antibiotic therapy. -Judicious fluid management. -Close monitoring. 3. Renal insufficiency secondary to sepsis. Improving Cr -Continue judicious fluid management. -Avoid nephrotoxic agents as possible. 4. Anemia, with recent hemothorax requiring VATS decortication. -Transfuse as needed. 5. Hypoalbuminemia. -Eventual nutritional optimization. 6. Hypernatremia -Correct with fluid management. 7. Hypertension. -Nutritional and medication optimization. 8. Hypothyroidism. -Replace hormone. 9. Hemopneumothorax, status post VATS. CT removed -followed by CT surgery. 10. Cervical spine injury, being maintained in brace by neurosurgery. Thank you, Problems: Subjective 24 Hr Interval Summary Leukocytosis resolved. No f/c. No v. Bowel function. On tube feeds. Min bloated. No cough. No sz. No rash. Min serous drainage from the abdominal incision Exam/Review of Systems Vital Signs Vitals Vital Signs Date Time Temp Pulse Resp B/P Pulse Ox O2 Delivery O2 Flow Rate FiO2 03/15/16 20:05 92 03/15/16 19:45 97.6 18 161/67 98 03/15/16 10:01 Nasal Cannula 3.0 03/12/16 17:25 32 Intake and Output 03/14/16 03/14/16 03/15/16 15:00 23:00 07:00 Intake Total 1550 ml 400 ml Output Total 200 ml 950 ml Balance 1350 ml -550 ml Exam Free Text/Dictation GENERAL: NAD HEENT: Pupils equal, reactive. No scleral icterus. Mucous membranes are somewhat dry. NECK: No crepitus. No JVD. PULMONARY: Normal respiratory effort ABDOMEN: Min tender. No rebound/guarding/rigidity. Distended. Min serous leak from left abdominal incision. EXTREMITIES: Trace edema. VASCULAR: Capillary refill is 2 seconds. NEUROLOGIC: Responsive SKIN: No rashes/jaundice. PSYCH: Normal affect Results Result Diagram: 03/15/16 0545 03/15/16 0545 CHRISTIANO JENNINGS MD Mar 15, 2016 23:28
[2016-03-15] MEDS: LORAZEPAM 2 MG INJ IV PRN (23:39)
[2016-03-16] VITALS (11 sets, daily range): BP systolic 131–162; BP diastolic 61–73; PULSE 97–117; RESP 18–20
[2016-03-16] MEDS: HYDROmorphONE 1 MG/ML SYG IV PRN ×4 (02:50→17:04)
[2016-03-16] MEDS: hydrALAzine 20 MG INJ IV PRN (04:35)
[2016-03-16] MEDS: VANCOMYCIN HCL 250 MG/5ML POSYG PO SCH ×2 (06:29→12:06)
[2016-03-16] MEDS: metroNIDAZOLE 500 MG/NS (PMX) 100 ML IVPB SCH ×2 (06:29→12:06)
[2016-03-16] MEDS: LEVOTHYROXINE 25 MCG TAB PO SCH (06:29)
[2016-03-16 07:02] LABS: POTASSIUM 3.8 mmol/L (3.5-5.1)
[2016-03-16 07:04] LABS: CREATININE 1.05 mg/dl (0.44-1.00)
[2016-03-16 07:05] LABS: CALCIUM 7.9 mg/dl (8.4-10.2)
[2016-03-16] MEDS: DICYCLOMINE 10 MG CAP PO SCH ×2 (09:08→21:24)
[2016-03-16] MEDS: FIDAXOMICIN 200 MG TABLET PO SCH ×2 (09:08→21:23)
[2016-03-16] MEDS: NICOTINE (21 MG/24 HR) PATCH TRANSDERM SCH (09:09)
[2016-03-16] MEDS: HEPARIN 5,000 UNIT/0.5 ML SYG SC SCH ×2 (09:15→21:45)
[2016-03-16] MEDS: ALBUMIN HUMAN 25% 100 ML IV SCH (09:17)
[2016-03-16] MEDS: VORICONAZOLE 200 MG TAB PO SCH (09:30)
[2016-03-16] MEDS: POTASSIUM CHLORIDE 20 MEQ POWDER FOR ORAL SOLN PO SCH ×2 (11:09→21:23)
--- NOTE | 2016-03-16 12:56 | CONS ---
Date/Time of Note Date/Time of Note DATE: 03/16/16 TIME: 12:54 Assessment/Plan Assessment/Plan Additional Assessment/Plan Assessment and recommendations; next 1. Patient admitted with bowel obstruction underwent laparotomy also causing respiratory failure no successfully extubated several days ago. 2. Thrombocytopenia next 3. Hyponatremia with interval improvement. 4. COPD 5. Persistent abdominal distention and pain and tenderness. 6. Persistent lower extremity edema, patient currently on albumin and Lasix daily. Continue current treatment. It is my understanding the patient is scheduled for a repeat CT abdomen pelvis. Consultation Date/Type/Reason Admit Date/Time Feb 24, 2016 at 04:06 Type of Consultation: id 24 HR Interval Summary Free Text/Dictation Patient condition is stable. She complains of abdominal pain. But denies any nausea or vomiting. Denies any shortness of breath. Any cough, wheezing, chest pain. General examination; elderly lady, awake alert currently in no distress. Exam/Review of Systems Vital Signs Vitals Vital Signs Date Time Temp Pulse Resp B/P Pulse Ox O2 Delivery O2 Flow Rate FiO2 03/16/16 12:40 101 03/16/16 12:21 98.0 18 135/61 99 03/16/16 07:45 Nasal Cannula 3.0 03/12/16 17:25 32 Intake and Output 03/15/16 03/15/16 03/16/16 15:00 23:00 07:00 Intake Total 650 ml 1100 ml Output Total 1900 ml 1050 ml Balance -1250 ml 50 ml Exam HEENT examination; supple neck, no JVD. No lymphadenopathy. Pharynx is clear. Midsize pupils. Chest examination; diminished but clear breath sounds. S1-S2 audible. No murmurs. Regular rate and rhythm. Abdomen examination; soft, mildly tender. Bowel sounds audible. Dressings applied over prior laparotomy site with mild serous drainage. Extremity examination there is 2+ pitting edema lower extremities bilaterally. GAS SINGER examination no focal deficit. Results Result Diagram: 03/15/16 0545 03/16/16 0550 Results 24 hrs Laboratory Tests Test 03/16/16 05:50 03/16/16 08:39 Anion Gap 13 Blood Urea Nitrogen 53 H Calcium Level 7.9 L Carbon Dioxide Level 21 Chloride Level 118 H Creatinine 1.05 H Glucose Level 105 Potassium Level 3.8 Sodium Level 148 H Lab Scanned Report REFERENCE LAB Medications Medications Current Medications Lorazepam (Ativan) 0.5 mg Q6H PRN IV ANXIETY Last administered on 03/15/16 23: 39; Admin Dose 0.5 MG; Start 02/24/16 at 02:00 Ondansetron HCl (Zofran Inj) 4 mg Q6H PRN IV NAUSEA AND/OR VOMITING Last administered on 03/01/16 13:17; Admin Dose 4 MG; Start 02/24/16 at 02:00 Nitroglycerin (Nitroglycerin (Sl Tab) 0.4 Mg) 1 tab Q5M PRN SL CHEST PAIN; Start 02/24/16 at 02:00 Hydralazine HCl (Apresoline) 10 mg Q6H PRN IV SBP > 160 Last administered on 04:35; Admin Dose 10 MG; Start 02/24/16 at 02:00 Labetalol HCl (Labetalol) 10 mg Q6 PRN IV ELEVATED BLOOD PRESSURE; Start at 23:00 Guaifenesin/ Dextromethorphan (Robitussin Dm Liquid Cup) 5 ml Q6 PRN PO COUGH Last administered on 02/27/16 18:12; Admin Dose 5 ML; Start 02/24/16 at 23:00 Nicotine (Nicoderm 21 Mg/ 24hr) 1 patch DAILY TRANSDERM Last administered on 09:09; Admin Dose 1 PATCH; Start 02/26/16 at 09:00 Levothyroxine Sodium 25 mcg 25 mcg DAILY@06 PO Last administered on 03/16/16 06 :29; Admin Dose 25 MCG; Start 02/28/16 at 06:00 Metronidazole (Flagyl 500 Mg (Pmx)) 100 ml @ 100 mls/hr Q6 IVPB Last administered on 03/16/16 12:06; Admin Dose 100 MLS/HR; Start 02/28/16 at 13:30 Hydromorphone HCl (Dilaudid) 0.5 mg Q3 PRN IV PAIN Last administered on 09:06; Admin Dose 0.5 MG; Start 03/02/16 at 17:00 Heparin Sodium (Porcine) (Heparin (5000 Units/0.5 ml)) 5,000 unit BID SC Last administered on 03/16/16 09:15; Admin Dose 5,000 UNIT; Start 03/02/16 at 21:30 Vancomycin HCl (Vancomycin Oral Syringe) 250 mg Q6 PO Last administered on 12:06; Admin Dose 250 MG; Start 03/06/16 at 18:00 Fidaxomicin (Dificid) 200 mg BID PO Last administered on 03/16/16 09:08; Admin Dose 200 MG; Start 03/07/16 at 21:00 Potassium Chloride (Potassium Chloride Pwd/Soln) 20 meq BID PO Last administered on 03/16/16 11:09; Admin Dose 20 MEQ; Start 03/08/16 at 12:30 Voriconazole 200 mg 200 mg BID PO Last administered on 03/16/16 09:30; Admin Dose 200 MG; Start 03/09/16 at 21:00 Albumin Human 100 ml @ 100 mls/hr DAILY IV Last administered on 03/16/16 09:17 ; Admin Dose 100 MLS/HR; Start 03/13/16 at 09:00; Stop 03/18/16 at 08:59 Potassium Chloride/Dextrose (KCl/D5W) 1,005 ml @ 30 mls/hr Q24H IV Last administered on 03/14/16 18:36; Admin Dose 30 MLS/HR; Start 03/14/16 at 18:30 Dicyclomine HCl (Bentyl) 10 mg BID PO Last administered on 03/16/16 09:08; Admin Dose 10 MG; Start 03/15/16 at 21:00 GAIL SPENCER Mar 16, 2016 12:56
[2016-03-16] MEDS: POTASSIUM CHLORIDE 10 MEQ in DEXTROSE 5% 1,000 ML IV SCH (14:38)
--- NOTE | 2016-03-16 15:17 | CONS ---
Date/Time of Note Date/Time of Note DATE: 03/16/16 TIME: 15:16 Assessment/Plan Assessment/Plan Chief Complaint/Hosp Course SUBJECTIVE: No acute events. The patient is alert, lying comfortably in bed. No fevers. She had PT today ANTIMICROBIALS 1. Dificid. 1. Vancomycin oral. 2. Voriconazole oral. 3. Flagyl. INDWELLINGS: Francois. PHYSICAL EXAMINATION GENERAL: This is a chronically ill-appearing, elderly woman who is sleeping, arousable and in no distress. HEENT: Head atraumatic, normocephalic. Sclerae are anicteric. Buccal mucosa pink, dry. NECK: Supple, trachea midline. CHEST: Rise symmetrical. Breath sounds diminished to bases. HEART: S1, S2. ABDOMEN: Soft. Bowel tones present. EXTREMITIES: Bilateral trace edema. SKIN: Positive for anasarca. ASSESSMENT 1. Resolving sepsis. 2. Pancolitis. 3. Status post a urinary tract infection with urine culture on 03/07 growing Ann glabrata, remains on voriconazole. 4. Status post respiratory failure. 5. History of cervical spine injury. 6. History of rib fracture and pneumothorax status post graft with chest tube placement, removed. 7. Anemia. 8. Acute renal failure. PLAN: Continues to improve, will keep on Dificid and Flagyl and dc other abx, continue present care, PT DW family at bedside Problems: Consultation Date/Type/Reason Admit Date/Time Feb 24, 2016 at 04:06 Type of Consultation: id Exam/Review of Systems Vital Signs Vitals Vital Signs Date Time Temp Pulse Resp B/P Pulse Ox O2 Delivery O2 Flow Rate FiO2 03/16/16 12:40 101 03/16/16 12:21 98.0 18 135/61 99 03/16/16 07:45 Nasal Cannula 3.0 03/12/16 17:25 32 Intake and Output 03/15/16 03/15/16 03/16/16 15:00 23:00 07:00 Intake Total 650 ml 1100 ml Output Total 1900 ml 1050 ml Balance -1250 ml 50 ml Results Result Diagram: 03/15/16 0545 03/16/16 0550 Results 24 hrs Laboratory Tests Test 03/16/16 05:50 03/16/16 08:39 Anion Gap 13 Blood Urea Nitrogen 53 H Calcium Level 7.9 L Carbon Dioxide Level 21 Chloride Level 118 H Creatinine 1.05 H Glucose Level 105 Potassium Level 3.8 Sodium Level 148 H Lab Scanned Report REFERENCE LAB Medications Medications Current Medications Lorazepam (Ativan) 0.5 mg Q6H PRN IV ANXIETY Last administered on 03/15/16 23: 39; Admin Dose 0.5 MG; Start 02/24/16 at 02:00 Ondansetron HCl (Zofran Inj) 4 mg Q6H PRN IV NAUSEA AND/OR VOMITING Last administered on 03/01/16 13:17; Admin Dose 4 MG; Start 02/24/16 at 02:00 Nitroglycerin (Nitroglycerin (Sl Tab) 0.4 Mg) 1 tab Q5M PRN SL CHEST PAIN; Start 02/24/16 at 02:00 Hydralazine HCl (Apresoline) 10 mg Q6H PRN IV SBP > 160 Last administered on 04:35; Admin Dose 10 MG; Start 02/24/16 at 02:00 Labetalol HCl (Labetalol) 10 mg Q6 PRN IV ELEVATED BLOOD PRESSURE; Start at 23:00 Guaifenesin/ Dextromethorphan (Robitussin Dm Liquid Cup) 5 ml Q6 PRN PO COUGH Last administered on 02/27/16 18:12; Admin Dose 5 ML; Start 02/24/16 at 23:00 Nicotine (Nicoderm 21 Mg/ 24hr) 1 patch DAILY TRANSDERM Last administered on 09:09; Admin Dose 1 PATCH; Start 02/26/16 at 09:00 Levothyroxine Sodium 25 mcg 25 mcg DAILY@06 PO Last administered on 03/16/16 06 :29; Admin Dose 25 MCG; Start 02/28/16 at 06:00 Metronidazole (Flagyl 500 Mg (Pmx)) 100 ml @ 100 mls/hr Q6 IVPB Last administered on 03/16/16 12:06; Admin Dose 100 MLS/HR; Start 02/28/16 at 13:30 Hydromorphone HCl (Dilaudid) 0.5 mg Q3 PRN IV PAIN Last administered on 13:56; Admin Dose 0.5 MG; Start 03/02/16 at 17:00 Heparin Sodium (Porcine) (Heparin (5000 Units/0.5 ml)) 5,000 unit BID SC Last administered on 03/16/16 09:15; Admin Dose 5,000 UNIT; Start 03/02/16 at 21:30 Vancomycin HCl (Vancomycin Oral Syringe) 250 mg Q6 PO Last administered on 12:06; Admin Dose 250 MG; Start 03/06/16 at 18:00 Fidaxomicin (Dificid) 200 mg BID PO Last administered on 03/16/16 09:08; Admin Dose 200 MG; Start 03/07/16 at 21:00 Potassium Chloride (Potassium Chloride Pwd/Soln) 20 meq BID PO Last administered on 03/16/16 11:09; Admin Dose 20 MEQ; Start 03/08/16 at 12:30 Voriconazole 200 mg 200 mg BID PO Last administered on 03/16/16 09:30; Admin Dose 200 MG; Start 03/09/16 at 21:00 Albumin Human 100 ml @ 100 mls/hr DAILY IV Last administered on 03/16/16 09:17 ; Admin Dose 100 MLS/HR; Start 03/13/16 at 09:00; Stop 03/18/16 at 08:59 Potassium Chloride/Dextrose (KCl/D5W) 1,005 ml @ 30 mls/hr Q24H IV Last administered on 03/16/16 14:38; Admin Dose 30 MLS/HR; Start 03/14/16 at 18:30 Dicyclomine HCl (Bentyl) 10 mg BID PO Last administered on 03/16/16 09:08; Admin Dose 10 MG; Start 03/15/16 at 21:00 PHOEBE BANDA NP Mar 16, 2016 15:17
--- NOTE | 2016-03-16 15:59 | PDOCDIS ---
Discharge Instructions CONDITION Patient Condition: Stable HOME CARE INSTRUCTIONS: Special Diet: Pureed ACTIVITY: Activity Restrictions: Slowly Increase Activity FOLLOW UP/APPOINTMENTS Appointments f/u dr zimmer [address] howe [address] everett 2 wks REMINGTON ZELAYA MD Mar 16, 2016 15:58
[2016-03-16] MEDS ORDERED: BARIUM SULF 2% 450 ML BTL (BERRY SMOOTHIE) PO ONE ×2 (17:18)
--- NOTE | 2016-03-16 17:44 | PN ---
Date/Time of Note Date/Time of Note DATE: 03/16/16 TIME: 17:42 Assessment/Plan VTE Prophylaxis VTE Prophylaxis Intervention: other Lines/Catheters IV Catheter Type (from Nrsg): Central Line Central line still needed: Yes Urinary Cath still in place: Yes Reason Cath still needed: other (indicate) Assessment/Plan Chief Complaint/Hosp Course 1. Left video-assisted thoracic surgery, total pulmonary decortication. 2.s/p Control of chest bleeding. 3. sepsis RESOLVING 4 s/p fall outside HOSPITAL 5 lung infilterate better 6 hypernatremia 7 djd 8 ddd 9 hx htn 10 positive gold test 11 UTI 12HYPOTHYROIDISM 13 collites better 14 markos BETTER 15 atn better 16 pancolites 17 metabolic acidosis better 18 [address] labs [address] everett pain meds per pulmonary pt/ot albumin iv snf ck labs Problems: Subjective 24 Hr Interval Summary Cardiovascular: no complaints Gastrointestinal: no complaints Exam/Review of Systems Vital Signs Vitals Vital Signs Date Time Temp Pulse Resp B/P Pulse Ox O2 Delivery O2 Flow Rate FiO2 03/16/16 17:29 2.0 03/16/16 15:48 98.0 102 18 131/73 98 03/16/16 07:45 Nasal Cannula 03/12/16 17:25 32 Intake and Output 03/15/16 03/15/16 03/16/16 15:00 23:00 07:00 Intake Total 650 ml 1100 ml Output Total 1900 ml 1050 ml Balance -1250 ml 50 ml Exam Neck: supple Respiratory: clear to auscultation Cardiovascular: regular rate and rhythm Gastrointestinal: bowel sounds (+), soft Extremities: normal pulses Results Result Diagram: 03/15/16 0545 03/16/16 0550 Results 24 hrs Laboratory Tests Test 03/16/16 05:50 03/16/16 08:39 Anion Gap 13 Blood Urea Nitrogen 53 H Calcium Level 7.9 L Carbon Dioxide Level 21 Chloride Level 118 H Creatinine 1.05 H Glucose Level 105 Potassium Level 3.8 Sodium Level 148 H Lab Scanned Report REFERENCE LAB Medications Medications Current Medications Lorazepam (Ativan) 0.5 mg Q6H PRN IV ANXIETY Last administered on 03/15/16t 23: 39; Admin Dose 0.5 MG; Start 02/24/16 at 02:00 Ondansetron HCl (Zofran Inj) 4 mg Q6H PRN IV NAUSEA AND/OR VOMITING Last administered on 03/01/16 13:17; Admin Dose 4 MG; Start 02/24/16 at 02:00 Nitroglycerin (Nitroglycerin (Sl Tab) 0.4 Mg) 1 tab Q5M PRN SL CHEST PAIN; Start 02/24/16 at 02:00 Hydralazine HCl (Apresoline) 10 mg Q6H PRN IV SBP > 160 Last administered on 04:35; Admin Dose 10 MG; Start 02/24/16 at 02:00 Labetalol HCl (Labetalol) 10 mg Q6 PRN IV ELEVATED BLOOD PRESSURE; Start at 23:00 Guaifenesin/ Dextromethorphan (Robitussin Dm Liquid Cup) 5 ml Q6 PRN PO COUGH Last administered on 02/27/16 18:12; Admin Dose 5 ML; Start 02/24/16 at 23:00 Nicotine (Nicoderm 21 Mg/ 24hr) 1 patch DAILY TRANSDERM Last administered on 09:09; Admin Dose 1 PATCH; Start 02/26/16 at 09:00 Levothyroxine Sodium (Synthroid) 25 mcg DAILY@06 PO Last administered on 06:29; Admin Dose 25 MCG; Start 02/28/16 at 06:00 Hydromorphone HCl (Dilaudid) 0.5 mg Q3 PRN IV PAIN Last administered on 17:04; Admin Dose 0.5 MG; Start 03/02/16 at 17:00 Heparin Sodium (Porcine) (Heparin (5000 Units/0.5 ml)) 5,000 unit BID SC Last administered on 03/16/16 09:15; Admin Dose 5,000 UNIT; Start 03/02/16 at 21:30 Fidaxomicin (Dificid) 200 mg BID PO Last administered on 03/16/16 09:08; Admin Dose 200 MG; Start 03/07/16 at 21:00 Potassium Chloride 20 meq 20 meq BID PO Last administered on 03/16/16 11:09; Admin Dose 20 MEQ; Start 03/08/16 at 12:30 Albumin Human 100 ml @ 100 mls/hr DAILY IV Last administered on 03/16/16 09:17 ; Admin Dose 100 MLS/HR; Start 03/13/16 at 09:00; Stop 03/18/16 at 08:59 Potassium Chloride/Dextrose (KCl/D5W) 1,005 ml @ 30 mls/hr Q24H IV Last administered on 03/16/16 14:38; Admin Dose 30 MLS/HR; Start 03/14/16 at 18:30 Dicyclomine HCl (Bentyl) 10 mg BID PO Last administered on 03/16/16 09:08; Admin Dose 10 MG; Start 03/15/16 at 21:00 Metronidazole (Flagyl) 500 mg Q8 PO ; Start 03/16/16 at 22:00 REMINGTON ZELAYA MD Mar 16, 2016 17:44
--- NOTE | 2016-03-16 18:07 | RADRPT ---
PROCEDURE: CT abdomen and pelvis without IV contrast. CLINICAL INDICATION: Abdominal pain TECHNIQUE: CT scan of the abdomen and pelvis without contrast was performed on the [employer] volumetric [address] scanner. The patient was scanned without intravenous contrast. Coronal and sagittal refo rmatted images were obtained from the axial source images. The CTDI vol is 15.22 mGy and the DLP is 834.46 mGy-cm. COMPARISON: 02/28/2016 FINDINGS: CT abdomen: A moderate size right pleural effusion is seen with a mild left pleural effusion with compressive at electasis. The heart size is not enlarged and is without pericardial thickening or effusion. Heali ng right-sided rib fractures are again seen. The left chest tube has been removed. Small parenchymal calcifications are seen in the liver as well as probable small hepatic cysts which are unchanged. The liver is normal in size and density and is otherwise without focal mass or intr ahepatic biliary dilatation. The spleen is normal in size and homogeneous in density. The stomach is grossly unremarkable. The pancreas as visualized is normal. The gallbladder and biliary tree ar e unremarkable and there is no evidence for biliary dilatation. The adrenal glands are symmetric an d normal. The kidneys are symmetrically unremarkable as well. No renal calculus or obstructive uro violette or mass lesion is seen. The aorta is of normal in caliber with atherosclerotic calcifications. There is no retroperitoneal lymphadenopathy. The cassy hepatis region is clear. Again seen is diffuse bowel wall edema with wa ll thickening throughout the large bowel. Compared to the prior examination, the bowel wall edema h as progressed in the transverse colon and descending colon as well as the sigmoid colon. The small bowel and mesentery, as visualized, are unremarkable. A mild to moderate volume of ascites is seen w hich is increased compared to the prior examination. Extensive diffuse anasarca is seen which has p rogressed. CT pelvis: The pelvic organs are normal. The pelvic sidewalls and inguinal regions are clear. No pelvic mass, lymphadenopathy, or focal fluid collection is seen. No acute inflammation is seen. The urinary bl adder is decompressed by a Francois catheter. Degenerative changes in the lumbar spine is seen. No osteolytic or osteoblastic lesion is detected. IMPRESSION: 1. Moderate size right pleural effusion and mild left pleural effusion which is increased compared to the prior examination. 2. Mild to moderate volume ascites with extensive diffuse anasarca low which have progressed compar ed to the prior examination. 3. Evidence of diffuse colitis with interval increase in the bowel wall edema as noted above. 4. Healing left-sided rib fractures with interval removal of the left chest tube. RPTAT: HPNM Physician Nabil Date Time Electronically viewed and signed by Galdino Nix Physician on 03/16/2016 18:07 /
--- NOTE | 2016-03-16 20:23 | CONS ---
Date/Time of Note Date/Time of Note DATE: 03/16/16 TIME: 20:20 Assessment/Plan Assessment/Plan Additional Assessment/Plan Impression: 1. Pancolitis: likely ischemic. c.difficile negative, no infarct on laparotomy exam, culture, wbc in stool negative. 2. Fracture of the ribs. 3. Pneumothorax status post chest tube placement. 4. History of nicotine addiction. 5. Cervical spine injury. 6. History of fall. 7. Peripheral arterial disease. 8. Mild elevation of alkaline phosphatase, most probably related to alcoholic liver disease. 9. Anemia. 10. dysphagia on tube feeds 11.s/p exploratory laparotomy,no bowel resection 12.respiratory failure 13. renal failure,improving [address] shows anasarca ascites, pleural effusion,colitis worsening PLAN: 1. Continue antibiotics and anti-fungal per ID 2. continue tube feeds with nephro 3. Continue post op care per ID 4, await repeat swallow eval tomorrow to clear patient to start clear liquid diet. 5. Continue supportive care per primary and other consultants 6.albumin and diuretic dailyfor few days 6.Bentyl Consultation Date/Type/Reason Admit Date/Time Feb 24, 2016 at 04:06 Type of Consultation: id 24 HR Interval Summary Free Text/Dictation persistent abdominal pain and diarrhea Subjective hx not possible: pt critical Exam/Review of Systems Vital Signs Vitals Vital Signs Date Time Temp Pulse Resp B/P Pulse Ox O2 Delivery O2 Flow Rate FiO2 03/16/16 20:16 98.0 94 19 153/66 100 03/16/16 17:29 2.0 03/16/16 07:45 Nasal Cannula 03/12/16 17:25 32 Intake and Output 03/15/16 03/15/16 03/16/16 15:00 23:00 07:00 Intake Total 650 ml 1100 ml Output Total 1900 ml 1050 ml Balance -1250 ml 50 ml Exam Constitutional: alert, oriented, well developed Psych: nl mood/affect, no complaints Respiratory: clear to auscultation, normal air movement Cardiovascular: nl pulses, regular rate and rhythm Gastrointestinal: tender Extremities: edema Results Result Diagram: 03/15/16 0545 03/16/16 0550 Results 24 hrs Laboratory Tests Test 03/16/16 05:50 03/16/16 08:39 Anion Gap 13 Blood Urea Nitrogen 53 H Calcium Level 7.9 L Carbon Dioxide Level 21 Chloride Level 118 H Creatinine 1.05 H Glucose Level 105 Potassium Level 3.8 Sodium Level 148 H Lab Scanned Report REFERENCE LAB Medications Medications Current Medications Lorazepam (Ativan) 0.5 mg Q6H PRN IV ANXIETY Last administered on 03/15/16 23: 39; Admin Dose 0.5 MG; Start 02/24/16 at 02:00 Ondansetron HCl (Zofran Inj) 4 mg Q6H PRN IV NAUSEA AND/OR VOMITING Last administered on 03/01/16 13:17; Admin Dose 4 MG; Start 02/24/16 at 02:00 Nitroglycerin (Nitroglycerin (Sl Tab) 0.4 Mg) 1 tab Q5M PRN SL CHEST PAIN; Start 02/24/16 at 02:00 Hydralazine HCl (Apresoline) 10 mg Q6H PRN IV SBP > 160 Last administered on 04:35; Admin Dose 10 MG; Start 02/24/16 at 02:00 Labetalol HCl (Labetalol) 10 mg Q6 PRN IV ELEVATED BLOOD PRESSURE; Start at 23:00 Guaifenesin/ Dextromethorphan (Robitussin Dm Liquid Cup) 5 ml Q6 PRN PO COUGH Last administered on 02/27/16 18:12; Admin Dose 5 ML; Start 02/24/16 at 23:00 Nicotine (Nicoderm 21 Mg/ 24hr) 1 patch DAILY TRANSDERM Last administered on 09:09; Admin Dose 1 PATCH; Start 02/26/16 at 09:00 Levothyroxine Sodium (Synthroid) 25 mcg DAILY@06 PO Last administered on 06:29; Admin Dose 25 MCG; Start 02/28/16 at 06:00 Hydromorphone HCl (Dilaudid) 0.5 mg Q3 PRN IV PAIN Last administered on 17:04; Admin Dose 0.5 MG; Start 03/02/16 at 17:00 Heparin Sodium (Porcine) (Heparin (5000 Units/0.5 ml)) 5,000 unit BID SC Last administered on 03/16/16 09:15; Admin Dose 5,000 UNIT; Start 03/02/16 at 21:30 Fidaxomicin (Dificid) 200 mg BID PO Last administered on 03/16/16 09:08; Admin Dose 200 MG; Start 03/07/16 at 21:00 Potassium Chloride 20 meq 20 meq BID PO Last administered on 03/16/16 11:09; Admin Dose 20 MEQ; Start 03/08/16 at 12:30 Albumin Human 100 ml @ 100 mls/hr DAILY IV Last administered on 03/16/16 09:17 ; Admin Dose 100 MLS/HR; Start 03/13/16 at 09:00; Stop 03/18/16 at 08:59 Potassium Chloride/Dextrose (KCl/D5W) 1,005 ml @ 30 mls/hr Q24H IV Last administered on 03/16/16 14:38; Admin Dose 30 MLS/HR; Start 03/14/16 at 18:30 Dicyclomine HCl (Bentyl) 10 mg BID PO Last administered on 03/16/16 09:08; Admin Dose 10 MG; Start 03/15/16 at 21:00 Metronidazole 500 mg 500 mg Q8 PO ; Start 03/16/16 at 22:00 Bumetanide/ Dextrose/Water (Bumex/D5W) 100 ml @ 10 mls/hr Q10H ONCE IV ; Start 03/16/16 at 21:30; Stop 03/17/16 at 07:29 CHARISSA WILHELM MD Mar 16, 2016 20:22
--- NOTE | 2016-03-16 20:31 | PN ---
Date/Time of Note Date/Time of Note DATE: 03/16/16 TIME: 20:30 Assessment/Plan Lines/Catheters IV Catheter Type (from [facility]): Central Line Francois in Place (from [facility]): Yes Assessment/Plan Chief Complaint/Hosp Course 1. Abdominal pain, with CT diagnosis of pancolitis, with significant leukocytosis and bandemia. s/p Lap exploration and only small mid transverse with min mottling. Bowel function. Improving. -Antibiotics per ID -Judicious fluid management 2. Sepsis, multifactorial (pancolitis ? ischemic, urinary tract infection, pulmonary infiltrates, bacteremia). Improved -Antibiotic therapy. -Judicious fluid management. -Close monitoring. 3. Renal insufficiency secondary to sepsis. Improving Cr -Continue judicious fluid management. -Avoid nephrotoxic agents as possible. 4. Anemia, with recent hemothorax requiring VATS decortication. -Transfuse as needed. 5. Hypoalbuminemia. -Eventual nutritional optimization. 6. Hypernatremia -Correct with fluid management. 7. Hypertension. -Nutritional and medication optimization. 8. Hypothyroidism. -Replace hormone. 9. Hemopneumothorax, status post VATS. CT removed -followed by CT surgery. 10. Cervical spine injury, being maintained in brace by neurosurgery. Thank you, Problems: Subjective 24 Hr Interval Summary Leukocytosis resolved. No f/c. No v. Bowel function. On tube feeds. Min bloated. No cough. No sz. No rash. Min serous drainage from the abdominal incision Exam/Review of Systems Vital Signs Vitals Vital Signs Date Time Temp Pulse Resp B/P Pulse Ox O2 Delivery O2 Flow Rate FiO2 03/16/16 20:16 98.0 94 19 153/66 100 03/16/16 17:29 2.0 03/16/16 07:45 Nasal Cannula 03/12/16 17:25 32 Intake and Output 03/15/16 03/15/16 03/16/16 15:00 23:00 07:00 Intake Total 650 ml 1100 ml Output Total 1900 ml 1050 ml Balance -1250 ml 50 ml Exam Free Text/Dictation GENERAL: NAD HEENT: Pupils equal, reactive. No scleral icterus. Mucous membranes are somewhat dry. NECK: No crepitus. No JVD. PULMONARY: Normal respiratory effort ABDOMEN: Min tender. No rebound/guarding/rigidity. Distended. Min serous leak from left abdominal incision. EXTREMITIES: Trace edema. VASCULAR: Capillary refill is 2 seconds. NEUROLOGIC: Responsive SKIN: No rashes/jaundice. PSYCH: Normal affect Results Result Diagram: 03/15/16 0545 03/16/16 0550 CHRISTIANO JENNINGS MD Mar 16, 2016 20:31
[2016-03-16 21:21] LABS: POTASSIUM 3.9 mmol/L (3.5-5.1)
[2016-03-16] MEDS: metroNIDAZOLE 500 MG TAB PO SCH (21:23)
[2016-03-16 21:24] LABS: CREATININE 1.04 mg/dl (0.44-1.00)
[2016-03-16] MEDS ORDERED: BUMETANIDE IV ONE (21:30)
[2016-03-16] MEDS ORDERED: DEXTROSE 5% IV ONE (21:30)
[2016-03-16] MEDS: LORAZEPAM 2 MG INJ IV PRN (21:46)
[2016-03-17] VITALS (11 sets, daily range): BP systolic 111–157; BP diastolic 53–69; PULSE 100–124; RESP 18–19
[2016-03-17] MEDS: LEVOTHYROXINE 25 MCG TAB PO SCH (06:06)
[2016-03-17] MEDS: metroNIDAZOLE 500 MG TAB PO SCH ×3 (06:06→21:00)
[2016-03-17 06:54] LABS: BASOPHILS % 0.3 % (0.0-2.0); HEMATOCRIT 29.4 % (37.0-47.0); HEMOGLOBIN 9.8 g/dl (12.0-16.0); LYMPHOCYTES # 0.9 10^3/ul (0.8-2.9); LYMPHOCYTES % 6.3 % (15.0-51.0); MEAN CORPUSCULAR HEMOGLOBIN 31.2 pg (29.0-33.0); MEAN CORPUSCULAR HGB CONC 33.4 g/dl (32.0-37.0); MEAN CORPUSCULAR VOLUME 93.3 fl (82.0-101.0); MEAN PLATELET VOLUME 10.9 fl (7.4-10.4); MONOCYTE # 0.6 10^3/ul (0.3-0.9); MONOCYTES % 4.6 % (0.0-11.0); NEUTROPHIL # 12.1 10^3/ul (1.6-7.5); NEUTROPHILS % 88.8 % (39.0-77.0); PLATELET COUNT 216 10^3/UL (140-440); RED BLOOD COUNT 3.15 10^6/ul (4.20-5.40); RED CELL DISTRIBUTION WIDTH 17.8 % (11.5-14.5); UNCORRECTED WBC 13.6 10^3/ul (4.8-10.8); WHITE BLOOD COUNT 13.6 10^3/ul (4.8-10.8)
[2016-03-17 08:08] LABS: CONDITION 1; LH ANALYZER COMMENTS 1
[2016-03-17] MEDS: POTASSIUM CHLORIDE 20 MEQ POWDER FOR ORAL SOLN PO SCH ×2 (09:06→20:51)
[2016-03-17] MEDS: ALBUMIN HUMAN 25% 100 ML IV SCH (09:06)
[2016-03-17] MEDS: FIDAXOMICIN 200 MG TABLET PO SCH ×2 (09:07→20:48)
[2016-03-17] MEDS: DICYCLOMINE 10 MG CAP PO SCH ×2 (09:07→20:49)
[2016-03-17] MEDS: NICOTINE (21 MG/24 HR) PATCH TRANSDERM SCH (09:08)
--- NOTE | 2016-03-17 09:16 | CONS ---
Date/Time of Note Date/Time of Note DATE: 03/17/16 TIME: 09:12 Assessment/Plan Assessment/Plan Additional Assessment/Plan Assessment and recommendations: 1. Patient admitted with bowel obstruction underwent laparotomy. 2. Status post respiratory failure. 3. Diffuse colitis. With increasing ascites and bilateral pleural effusions, more pronounced on the right side. 4. Increasing leukocytosis. 5. Candiduria. Continue current treatment. Schedule ultrasound-guided right thoracentesis. Consultation Date/Type/Reason Admit Date/Time Feb 24, 2016 at 04:06 Type of Consultation: pulmonary 24 HR Interval Summary Free Text/Dictation Patient condition is tenuous at best. The patient is having increasing abdominal distention and pain. Complains of mild shortness of breath. Next General examination; elderly lady, awake currently in no distress. Exam/Review of Systems Vital Signs Vitals Vital Signs Date Time Temp Pulse Resp B/P Pulse Ox O2 Delivery O2 Flow Rate FiO2 03/17/16 06:58 97.8 101 18 138/63 100 03/17/16 04:29 2.0 03/16/16 20:00 Nasal Cannula Intake and Output 03/16/16 03/16/16 03/17/16 15:00 23:00 07:00 Intake Total 600 ml 290 ml Output Total 700 ml 1100 ml Balance -100 ml -810 ml Exam H EENT examination; supple neck, no JVD. No lymphadenopathy. Pharynx is clear. No neck masses. Chest examination; diminished breath on lung bases bilaterally. S1-S2 audible no murmurs regular rhythm. Abdomen examination; abdomen is distended, diffusely tender, multiple well- healed scars are present. Bowel sounds are tympanic. Next Extremity examination; 2+ pitting edema lower extremities bilaterally. SOLAR SALES ASSOCIATE examination no focal deficit. Results Result Diagram: 03/17/1661103/16/162019 Results 24 hrs Laboratory Tests Test 03/16/16 20:20 03/17/16 06:12 Anion Gap 15 Blood Urea Nitrogen 50 H Calcium Level 8.0 L Carbon Dioxide Level 21 Chloride Level 116 H Creatinine 1.04 H Glucose Level 114 Potassium Level 3.9 Sodium Level 148 H Basophils # 0.0 Basophils % 0.3 Blood Morphology Comment Eosinophils # 0.0 Eosinophils % 0.0 Hematocrit 29.4 L Hemoglobin 9.8 L Lymphocytes # 0.9 Lymphocytes % 6.3 L Mean Corpuscular Hemoglobin 31.2 Mean Corpuscular Hemoglobin Concent 33.4 Mean Corpuscular Volume 93.3 Mean Platelet Volume 10.9 H Monocytes # 0.6 Monocytes % 4.6 Neutrophils # 12.1 H Neutrophils % 88.8 H Nucleated Red Blood Cells # 0.0 Nucleated Red Blood Cells % 0.0 Platelet Count 216 Red Blood Count 3.15 L Red Cell Distribution Width 17.8 H White Blood Count 13.6 #H Medications Medications Current Medications Lorazepam (Ativan) 0.5 mg Q6H PRN IV ANXIETY Last administered on 03/16/16 21: 46; Admin Dose 0.5 MG; Start 02/24/16 at 02:00 Ondansetron HCl (Zofran Inj) 4 mg Q6H PRN IV NAUSEA AND/OR VOMITING Last administered on 03/01/16 13:17; Admin Dose 4 MG; Start 02/24/16 at 02:00 Nitroglycerin (Nitroglycerin (Sl Tab) 0.4 Mg) 1 tab Q5M PRN SL CHEST PAIN; Start 02/24/16 at 02:00 Hydralazine HCl (Apresoline) 10 mg Q6H PRN IV SBP > 160 Last administered on 04:35; Admin Dose 10 MG; Start 02/24/16 at 02:00 Labetalol HCl (Labetalol) 10 mg Q6 PRN IV ELEVATED BLOOD PRESSURE; Start at 23:00 Guaifenesin/ Dextromethorphan (Robitussin Dm Liquid Cup) 5 ml Q6 PRN PO COUGH Last administered on 02/27/16 18:12; Admin Dose 5 ML; Start 02/24/16 at 23:00 Nicotine (Nicoderm 21 Mg/ 24hr) 1 patch DAILY TRANSDERM Last administered on 09:09; Admin Dose 1 PATCH; Start 02/26/16 at 09:00 Levothyroxine Sodium (Synthroid) 25 mcg DAILY@06 PO Last administered on 06:06; Admin Dose 25 MCG; Start 02/28/16 at 06:00 Hydromorphone HCl (Dilaudid) 0.5 mg Q3 PRN IV PAIN Last administered on 17:04; Admin Dose 0.5 MG; Start 03/02/16 at 17:00 Heparin Sodium (Porcine) (Heparin (5000 Units/0.5 ml)) 5,000 unit BID SC Last administered on 03/16/16 21:45; Admin Dose 5,000 UNIT; Start 03/02/16 at 21:30 Fidaxomicin (Dificid) 200 mg BID PO Last administered on 03/16/16 21:23; Admin Dose 200 MG; Start 03/07/16 at 21:00 Potassium Chloride 20 meq 20 meq BID PO Last administered on 03/16/16 21:23; Admin Dose 20 MEQ; Start 03/08/16 at 12:30 Albumin Human 100 ml @ 100 mls/hr DAILY IV Last administered on 03/16/16 09:17 ; Admin Dose 100 MLS/HR; Start 03/13/16 at 09:00; Stop 03/18/16 at 08:59 Potassium Chloride/Dextrose (KCl/D5W) 1,005 ml @ 30 mls/hr Q24H IV Last administered on 03/16/16 14:38; Admin Dose 30 MLS/HR; Start 03/14/16 at 18:30 Dicyclomine HCl (Bentyl) 10 mg BID PO Last administered on 03/16/16 21:24; Admin Dose 10 MG; Start 03/15/16 at 21:00 Metronidazole (Flagyl) 500 mg Q8 PO Last administered on 03/17/16 06:06; Admin Dose 500 MG; Start 03/16/16 at 22:00 GAIL SPENCER Mar 17, 2016 09:16
[2016-03-17] MEDS: HEPARIN 5,000 UNIT/0.5 ML SYG SC SCH ×2 (09:30→20:55)
[2016-03-17] MEDS: FUROSEMIDE 40 MG INJ IV SCH (10:56)
[2016-03-17] MEDS: HYDROmorphONE 1 MG/ML SYG IV PRN ×2 (11:44→20:57)
--- NOTE | 2016-03-17 17:28 | PN ---
DATE: 03/17/2016 SUBJECTIVE: No acute changes. Patient is alert, complaining of abdominal pain. She is in no distr ess, no fevers. WBC today 13.6 with platelets 216, neutrophils 88.8. BUN 50, creatinine 1.04. DIAGNOSTICS: CT of the chest and abdomen repeated yesterday revealed moderate sized right and midsi ze left pleural effusion, increased when compared to prior examination, mild to moderate volume asci cy[place] with diffuse anasarca that is increased. Evidence of diffuse colitis with interval increase in bowel wall edema as noted above. ANTIMICROBIALS: The patient is on. 1. Dificid 2. Flagyl. INDWELLINGS: Right IJ triple-lumen catheter, Francois catheter. PHYSICAL EXAMINATION: GENERAL: This is a well-developed, fragile, elderly woman who is awake, in no distress. HEENT: Head atraumatic, normocephalic. Sclerae anicteric. Buccal mucosa pink. NECK: Supple. CHEST: Rise symmetrical. Breath sounds with scattered crackles to bases. HEART: S1, S2. ABDOMEN: Obese, soft. Bowel tones hypoactive. EXTREMITIES: Bilateral edema. SKIN: Positive for anasarca. ASSESSMENT: 1. Status post sepsis. 2. Pancolitis, ongoing. 3. Bilateral pleural effusions. 4. Ascites. 5. Status post pneumothorax secondary to the hip fracture requiring video-assisted thoracic surgery with chest tube placement, removed. 6. History of cervical spine injury. 7. Status post Ann glabrata urinary tract infection. PLAN: The patient remains clinically unchanged. She is being seen by multiple consultants. I will restart her on oral vancomycin given persistent colitis that is actually getting worse. The patien t is scheduled for thoracentesis per pulmonary recommendations. Dictated By: PHOEBE BANDA AUTOMOBILE TECHNICIAN for JUAN HUGHES MD NI/NTS Conf#: [id number] DID#: [id number]
[2016-03-17] MEDS: VANCOMYCIN HCL 250 MG/5ML POSYG PO SCH ×2 (18:14→23:56)
[2016-03-17] MEDS: POTASSIUM CHLORIDE 10 MEQ in DEXTROSE 5% 1,000 ML IV SCH (18:30)
[2016-03-17] MEDS: LORAZEPAM 2 MG INJ IV PRN (18:50)
--- NOTE | 2016-03-17 20:21 | CONS ---
Date/Time of Note Date/Time of Note DATE: 03/17/16 TIME: 20:20 Assessment/Plan Assessment/Plan Additional Assessment/Plan Impression: 1. Pancolitis: likely ischemic. c.difficile negative, no infarct on laparotomy exam, culture, wbc in stool negative. 2. Fracture of the ribs. 3. Pneumothorax status post chest tube placement. 4. History of nicotine addiction. 5. Cervical spine injury. 6. History of fall. 7. Peripheral arterial disease. 8. Mild elevation of alkaline phosphatase, most probably related to alcoholic liver disease. 9. Anemia. 10. dysphagia on tube feeds 11.s/p exploratory laparotomy,no bowel resection 12.respiratory failure 13. renal failure,improving [address] shows anasarca ascites, pleural effusion,colitis worsening PLAN: 1. Continue antibiotics and anti-fungal per ID 2. continue tube feeds with nephro 3. Continue post op care per ID 4, await repeat swallow eval tomorrow to clear patient to start clear liquid diet. 5. Continue supportive care per primary and other consultants 6.albumin and diuretic dailyfor few days 6.Bentyl 7.thoracocentesis in am Consultation Date/Type/Reason Admit Date/Time Feb 24, 2016 at 04:06 Type of Consultation: pulmonary 24 HR Interval Summary Free Text/Dictation pain better Exam/Review of Systems Vital Signs Vitals Vital Signs Date Time Temp Pulse Resp B/P Pulse Ox O2 Delivery O2 Flow Rate FiO2 03/17/16 20:00 124 03/17/16 19:29 2.0 03/17/16 15:13 98.5 18 157/69 100 03/17/16 08:30 Nasal Cannula Intake and Output 03/16/16 03/16/16 03/17/16 15:00 23:00 07:00 Intake Total 600 ml 290 ml Output Total 700 ml 1100 ml Balance -100 ml -810 ml Exam Constitutional: alert, oriented, well developed Psych: nl mood/affect, no complaints Head: atraumatic, normocephalic Eyes: EOMI, PERRL, nl conjunctiva, nl lids, nl sclera ENMT: nl external ears & nose, nl lips & teeth, nl nasal mucosa & septum Neck: non-tender, supple Respiratory: clear to auscultation, normal air movement Cardiovascular: nl pulses, regular rate and rhythm Gastrointestinal: nl liver, spleen, non-tender, soft Musculoskeletal: nl extremities to inspection, nl gait and stance Extremities: normal pulses Neurological: PRODUCTION HONING MACHINE OPERATOR II-XII intact, nl mental status, nl speech, nl strength Skin: nl turgor, No rash or lesions Lymph: nl lymph nodes Results Result Diagram: 03/17/16 0612 03/16/16 2020 Results 24 hrs Laboratory Tests Test 03/17/16 06:12 Basophils # 0.0 Basophils % 0.3 Blood Morphology Comment Eosinophils # 0.0 Eosinophils % 0.0 Hematocrit 29.4 L Hemoglobin 9.8 L Lymphocytes # 0.9 Lymphocytes % 6.3 L Mean Corpuscular Hemoglobin 31.2 Mean Corpuscular Hemoglobin Concent 33.4 Mean Corpuscular Volume 93.3 Mean Platelet Volume 10.9 H Monocytes # 0.6 Monocytes % 4.6 Neutrophils # 12.1 H Neutrophils % 88.8 H Nucleated Red Blood Cells # 0.0 Nucleated Red Blood Cells % 0.0 Platelet Count 216 Red Blood Count 3.15 L Red Cell Distribution Width 17.8 H White Blood Count 13.6 #H Medications Medications Current Medications Lorazepam (Ativan) 0.5 mg Q6H PRN IV ANXIETY Last administered on 03/17/16 18: 50; Admin Dose 0.5 MG; Start 02/24/16 at 02:00 Ondansetron HCl (Zofran Inj) 4 mg Q6H PRN IV NAUSEA AND/OR VOMITING Last administered on 03/01/16 13:17; Admin Dose 4 MG; Start 02/24/16 at 02:00 Nitroglycerin (Nitroglycerin (Sl Tab) 0.4 Mg) 1 tab Q5M PRN SL CHEST PAIN; Start 02/24/16 at 02:00 Hydralazine HCl (Apresoline) 10 mg Q6H PRN IV SBP > 160 Last administered on 04:35; Admin Dose 10 MG; Start 02/24/16 at 02:00 Labetalol HCl (Labetalol) 10 mg Q6 PRN IV ELEVATED BLOOD PRESSURE; Start at 23:00 Guaifenesin/ Dextromethorphan (Robitussin Dm Liquid Cup) 5 ml Q6 PRN PO COUGH Last administered on 02/27/16 18:12; Admin Dose 5 ML; Start 02/24/16 at 23:00 Nicotine (Nicoderm 21 Mg/ 24hr) 1 patch DAILY TRANSDERM Last administered on 09:08; Admin Dose 1 PATCH; Start 02/26/16 at 09:00 Levothyroxine Sodium (Synthroid) 25 mcg DAILY@06 PO Last administered on 06:06; Admin Dose 25 MCG; Start 02/28/16 at 06:00 Hydromorphone HCl (Dilaudid) 0.5 mg Q3 PRN IV PAIN Last administered on 11:44; Admin Dose 0.5 MG; Start 03/02/16 at 17:00 Heparin Sodium (Porcine) (Heparin (5000 Units/0.5 ml)) 5,000 unit BID SC Last administered on 03/17/16 09:30; Admin Dose 5,000 UNIT; Start 03/02/16 at 21:30 Fidaxomicin (Dificid) 200 mg BID PO Last administered on 03/17/16 09:07; Admin Dose 200 MG; Start 03/07/16 at 21:00 Potassium Chloride 20 meq 20 meq BID PO Last administered on 03/17/16 09:06; Admin Dose 20 MEQ; Start 03/08/16 at 12:30 Albumin Human 100 ml @ 100 mls/hr DAILY IV Last administered on 03/17/16 09:06 ; Admin Dose 100 MLS/HR; Start 03/13/16 at 09:00; Stop 03/18/16 at 08:59 Potassium Chloride/Dextrose (KCl/D5W) 1,005 ml @ 30 mls/hr Q24H IV Last administered on 03/16/16 14:38; Admin Dose 30 MLS/HR; Start 03/14/16 at 18:30 Dicyclomine HCl (Bentyl) 10 mg BID PO Last administered on 03/17/16 09:07; Admin Dose 10 MG; Start 03/15/16 at 21:00 Metronidazole (Flagyl) 500 mg Q8 PO Last administered on 03/17/16 15:15; Admin Dose 500 MG; Start 03/16/16 at 22:00 Furosemide (Lasix) 40 mg DAILY@06 IV Last administered on 03/17/16 10:56; Admin Dose 40 MG; Start 2/3/17 at 09:30 Vancomycin HCl (Vancomycin Oral Syringe) 250 mg Q6 PO Last administered on t 18:14; Admin Dose 250 MG; Start 03/17/16 at 18:00 CHARISSA WILHELM MD Mar 17, 2016 20:21
[2016-03-17] MEDS ORDERED: VERAPAMIL 5 MG INJ IV PRN (23:30)
[2016-03-17] MEDS: ZOLPIDEM 5 MG TAB PO PRN (23:56)
[2016-03-18] VITALS (13 sets, daily range): BP systolic 99–147; BP diastolic 37–89; PULSE 99–136; RESP 16–21
[2016-03-18] MEDS ORDERED: METOPROLOL 5 MG INJ IV PRN (01:30)
[2016-03-18] MEDS: HYDROmorphONE 1 MG/ML SYG IV PRN ×2 (05:47→15:53)
[2016-03-18] MEDS: FUROSEMIDE 40 MG INJ IV SCH ×2 (05:50→17:38)
[2016-03-18] MEDS: LEVOTHYROXINE 25 MCG TAB PO SCH (05:55)
[2016-03-18] MEDS: metroNIDAZOLE 500 MG TAB PO SCH ×3 (05:55→22:10)
[2016-03-18] MEDS: VANCOMYCIN HCL 250 MG/5ML POSYG PO SCH ×3 (05:57→17:38)
[2016-03-18] MEDS: HEPARIN 5,000 UNIT/0.5 ML SYG SC SCH ×2 (09:00→21:00)
[2016-03-18] MEDS: FIDAXOMICIN 200 MG TABLET PO SCH ×2 (09:04→22:10)
[2016-03-18] MEDS: DICYCLOMINE 10 MG CAP PO SCH ×2 (09:04→21:55)
[2016-03-18] MEDS: POTASSIUM CHLORIDE 20 MEQ POWDER FOR ORAL SOLN PO SCH ×2 (09:05→21:54)
--- NOTE | 2016-03-18 11:59 | CONS ---
Date/Time of Note Date/Time of Note DATE: 03/18/16 TIME: 11:58 Assessment/Plan Assessment/Plan Additional Assessment/Plan Assessment/Plan Additional Assessment/Plan Impression: 1. Pancolitis: likely ischemic. c.difficile negative, no infarct on laparotomy exam, culture, wbc in stool negative. 2. Fracture of the ribs. 3. Pneumothorax status post chest tube placement. 4. History of nicotine addiction. 5. Cervical spine injury. 6. History of fall. 7. Peripheral arterial disease. 8. Mild elevation of alkaline phosphatase, most probably related to alcoholic liver disease. 9. Anemia. 10. dysphagia on tube feeds 11.s/p exploratory laparotomy,no bowel resection 12.respiratory failure 13. renal failure,improving [address] shows anasarca ascites, pleural effusion,colitis worsening PLAN: 1. Continue antibiotics and anti-fungal per ID 2. continue tube feeds with nephro 3. Continue post op care per ID 4, await repeat swallow eval tomorrow to clear patient to start clear liquid diet. 5. Continue supportive care per primary and other consultants 6.albumin and diuretic dailyfor few days 6.Bentyl 7.thoracocentesis today Consultation Date/Type/Reason Admit Date/Time Feb 24, 2016 at 04:06 Type of Consultation: pulmonary 24 HR Interval Summary Constitutional: improved Exam/Review of Systems Vital Signs Vitals Vital Signs Date Time Temp Pulse Resp B/P Pulse Ox O2 Delivery O2 Flow Rate FiO2 03/18/16 11:49 97.9 101 17 125/44 100 03/18/16 07:50 Nasal Cannula 3.0 Intake and Output 03/17/16 03/17/16 03/18/16 15:00 23:00 07:00 Intake Total 720 ml 570 ml Output Total 1400 ml 1500 ml Balance -680 ml -930 ml Exam Constitutional: alert, oriented, well developed Psych: nl mood/affect, no complaints Head: atraumatic, normocephalic Eyes: EOMI, PERRL, nl conjunctiva, nl lids, nl sclera ENMT: nl external ears & nose, nl lips & teeth, nl nasal mucosa & septum Neck: non-tender, supple Respiratory: clear to auscultation, normal air movement Cardiovascular: nl pulses, regular rate and rhythm Gastrointestinal: nl liver, spleen, non-tender, soft Musculoskeletal: nl extremities to inspection, nl gait and stance Extremities: normal pulses Neurological: SENIOR HR GENERALIST II-XII intact, nl mental status, nl speech, nl strength Skin: nl turgor, No rash or lesions Lymph: nl lymph nodes Results Result Diagram: 03/17/16 0612 03/16/16 2020 Medications Medications Current Medications Lorazepam (Ativan) 0.5 mg Q6H PRN IV ANXIETY Last administered on 03/17/16 18: 50; Admin Dose 0.5 MG; Start 02/24/16 at 02:00 Ondansetron HCl (Zofran Inj) 4 mg Q6H PRN IV NAUSEA AND/OR VOMITING Last administered on 03/01/16 13:17; Admin Dose 4 MG; Start 02/24/16 at 02:00 Nitroglycerin (Nitroglycerin (Sl Tab) 0.4 Mg) 1 tab Q5M PRN SL CHEST PAIN; Start 02/24/16 at 02:00 Hydralazine HCl (Apresoline) 10 mg Q6H PRN IV SBP > 160 Last administered on 04:35; Admin Dose 10 MG; Start 02/24/16 at 02:00 Labetalol HCl (Labetalol) 10 mg Q6 PRN IV ELEVATED BLOOD PRESSURE; Start at 23:00 Guaifenesin/ Dextromethorphan (Robitussin Dm Liquid Cup) 5 ml Q6 PRN PO COUGH Last administered on 02/27/16 18:12; Admin Dose 5 ML; Start 02/24/16 at 23:00 Nicotine (Nicoderm 21 Mg/ 24hr) 1 patch DAILY TRANSDERM Last administered on 09:08; Admin Dose 1 PATCH; Start 02/26/16 at 09:00 Levothyroxine Sodium (Synthroid) 25 mcg DAILY@06 PO Last administered on 05:55; Admin Dose 25 MCG; Start 02/28/16 at 06:00 Hydromorphone HCl (Dilaudid) 0.5 mg Q3 PRN IV PAIN Last administered on 05:47; Admin Dose 0.5 MG; Start 03/02/16 at 17:00 Heparin Sodium (Porcine) (Heparin (5000 Units/0.5 ml)) 5,000 unit BID SC Last administered on 03/17/16 20:55; Admin Dose 5,000 UNIT; Start 03/02/16 at 21:30 Fidaxomicin (Dificid) 200 mg BID PO Last administered on 03/18/16 09:04; Admin Dose 200 MG; Start 03/07/16 at 21:00 Potassium Chloride 20 meq 20 meq BID PO Last administered on 03/18/16 09:05; Admin Dose 20 MEQ; Start 03/08/16 at 12:30 Potassium Chloride/Dextrose (KCl/D5W) 1,005 ml @ 30 mls/hr Q24H IV Last administered on 03/16/16 14:38; Admin Dose 30 MLS/HR; Start 03/14/16 at 18:30 Dicyclomine HCl (Bentyl) 10 mg BID PO Last administered on 03/18/16 09:04; Admin Dose 10 MG; Start 03/15/16 at 21:00 Metronidazole (Flagyl) 500 mg Q8 PO Last administered on 03/18/16 05:55; Admin Dose 500 MG; Start 03/16/16 at 22:00 Furosemide (Lasix) 40 mg DAILY@06 IV Last administered on 03/18/16 05:50; Admin Dose 40 MG; Start 03/17/16 at 09:30 Vancomycin HCl (Vancomycin Oral Syringe) 250 mg Q6 PO Last administered on 05:57; Admin Dose 250 MG; Start 03/17/16 at 18:00 Verapamil HCl (Verapamil) 5 mg Q6H PRN IV ELEVATED HEART RATE Last administered on 03/17/16 23:45; Admin Dose 5 MG; Start 03/17/16 at 23:30 Zolpidem Tartrate (Ambien) 5 mg HS PRN PO INSOMNIA Last administered on 23:56; Admin Dose 5 MG; Start 03/17/16 at 23:30 Metoprolol Tartrate (Lopressor) 5 mg Q4H PRN IV ELEVATED HEART RATE Last administered on 03/18/16 01:41; Admin Dose 5 MG; Start 03/18/16 at 01:30 CHARISSA WILHELM MD Mar 18, 2016 11:59
--- NOTE | 2016-03-18 12:08 | PN ---
Date/Time of Note Date/Time of Note DATE: 03/18/16 TIME: 12:06 Assessment/Plan VTE Prophylaxis VTE Prophylaxis Intervention: other Lines/Catheters IV Catheter Type (from Nrsg): Central Line Central line still needed: Yes Urinary Cath still in place: Yes Reason Cath still needed: other (indicate) Assessment/Plan Chief Complaint/Hosp Course 1. Left video-assisted thoracic surgery, total pulmonary decortication. 2.s/p Control of chest bleeding. 3. sepsis RESOLVING 4 s/p fall outside HOSPITAL 5 lung infilterate better 6 hypernatremia 7 djd 8 ddd 9 hx htn 10 positive gold test 11 UTI 12HYPOTHYROIDISM 13 collites better 14 markos BETTER 15 atn better 16 pancolites 17 metabolic acidosis better 18 edema hypernatremia plan labs id dr everett pain meds per pulmonary pt/ot albumin iv snf soon ck labs Problems: Subjective 24 Hr Interval Summary Respiratory: shortness of breath (+) Cardiovascular: no complaints Musculoskeletal: swelling (legs) Exam/Review of Systems Vital Signs Vitals Vital Signs Date Time Temp Pulse Resp B/P Pulse Ox O2 Delivery O2 Flow Rate FiO2 03/18/16 12:00 99 03/18/16 11:49 97.9 17 125/44 100 03/18/16 07:50 Nasal Cannula 3.0 Intake and Output 03/17/16 03/17/16 03/18/16 15:00 23:00 07:00 Intake Total 720 ml 570 ml Output Total 1400 ml 1500 ml Balance -680 ml -930 ml Exam Respiratory: clear to auscultation Cardiovascular: regular rate and rhythm Gastrointestinal: soft Extremities: normal pulses Neurological: 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 ARTS 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 II-XII intact Results Result Diagram: 03/17/1612 03/16/162019 Medications Medications Current Medications Lorazepam (Ativan) 0.5 mg Q6H PRN IV ANXIETY Last administered on 03/17/16 18: 50; Admin Dose 0.5 MG; Start 02/24/16 at 02:00 Ondansetron HCl (Zofran Inj) 4 mg Q6H PRN IV NAUSEA AND/OR VOMITING Last administered on 03/01/16 13:17; Admin Dose 4 MG; Start 02/24/16 at 02:00 Nitroglycerin (Nitroglycerin (Sl Tab) 0.4 Mg) 1 tab Q5M PRN SL CHEST PAIN; Start 02/24/16 at 02:00 Hydralazine HCl (Apresoline) 10 mg Q6H PRN IV SBP > 160 Last administered on 04:35; Admin Dose 10 MG; Start 02/24/16 at 02:00 Labetalol HCl (Labetalol) 10 mg Q6 PRN IV ELEVATED BLOOD PRESSURE; Start at 23:00 Guaifenesin/ Dextromethorphan (Robitussin Dm Liquid Cup) 5 ml Q6 PRN PO COUGH Last administered on 02/27/16 18:12; Admin Dose 5 ML; Start 02/24/16 at 23:00 Nicotine (Nicoderm 21 Mg/ 24hr) 1 patch DAILY TRANSDERM Last administered on 09:08; Admin Dose 1 PATCH; Start 02/26/16 at 09:00 Levothyroxine Sodium (Synthroid) 25 mcg DAILY@06 PO Last administered on 05:55; Admin Dose 25 MCG; Start 02/28/16 at 06:00 Hydromorphone HCl (Dilaudid) 0.5 mg Q3 PRN IV PAIN Last administered on 05:47; Admin Dose 0.5 MG; Start 03/02/16 at 17:00 Heparin Sodium (Porcine) (Heparin (5000 Units/0.5 ml)) 5,000 unit BID SC Last administered on 03/17/16 20:55; Admin Dose 5,000 UNIT; Start 03/02/16 at 21:30 Fidaxomicin (Dificid) 200 mg BID PO Last administered on 03/18/16 09:04; Admin Dose 200 MG; Start 03/07/16 at 21:00 Potassium Chloride 20 meq 20 meq BID PO Last administered on 03/18/16 09:05; Admin Dose 20 MEQ; Start 03/08/16 at 12:30 Potassium Chloride/Dextrose (KCl/D5W) 1,005 ml @ 30 mls/hr Q24H IV Last administered on 03/16/16 14:38; Admin Dose 30 MLS/HR; Start 03/14/16 at 18:30 Dicyclomine HCl (Bentyl) 10 mg BID PO Last administered on 03/18/16 09:04; Admin Dose 10 MG; Start 03/15/16 at 21:00 Metronidazole (Flagyl) 500 mg Q8 PO Last administered on 03/18/16 05:55; Admin Dose 500 MG; Start 03/16/16 at 22:00 Furosemide (Lasix) 40 mg DAILY@06 IV Last administered on 03/18/16 05:50; Admin Dose 40 MG; Start 03/17/16 at 09:30 Vancomycin HCl (Vancomycin Oral Syringe) 250 mg Q6 PO Last administered on 05:57; Admin Dose 250 MG; Start 03/17/16 at 18:00 Verapamil HCl (Verapamil) 5 mg Q6H PRN IV ELEVATED HEART RATE Last administered on 03/17/16 23:45; Admin Dose 5 MG; Start 03/17/16 at 23:30 Zolpidem Tartrate (Ambien) 5 mg HS PRN PO INSOMNIA Last administered on 23:56; Admin Dose 5 MG; Start 03/17/16 at 23:30 Metoprolol Tartrate (Lopressor) 5 mg Q4H PRN IV ELEVATED HEART RATE Last administered on 03/18/16 01:41; Admin Dose 5 MG; Start 03/18/16 at 01:30 REMINGTON ZELAYA MD Mar 18, 2016 12:07
[2016-03-18] MEDS ORDERED: LIDOCAINE 1% (MPF) 5 ML VIAL ONE (12:20)
--- NOTE | 2016-03-18 12:41 | RADRPT ---
PROCEDURE: XR Chest. CLINICAL INDICATION: Post thoracentesis TECHNIQUE: Anterior chest x-ray. COMPARISON: 03/08/2016 FINDINGS: Right internal jugular approach central venous catheter terminates at the cavoatrial junction. There has been interval extubation and removal of nasogastric tube. Small crescentic lucency in the right lung base may represent small pneumothorax measuring 1-2% of l mel volume. The right lung is otherwise clear. No effusion is seen in the right hemithorax. Blunting left costophrenic angle is consistent with small pleural effusion. Mild bibasilar atelectasis.. The cardiomediastinal silhouette is unremarkable. The soft tissues are normal. Osseous structures are unremarkable. IMPRESSION: 1. Possible trace subpulmonic pneumothorax. Follow-up chest x-ray in 2 hours has been ordered. 2. Small left pleural effusion. 3. Mild bibasilar atelectasis. 4. Stable and satisfactory position of right internal jugular central venous catheter. RPTAT: QQ .Jamar Wheatley MD, MD Date Time Electronically viewed and signed by .Jamar Wheatley MD, MD on 03/18/2016 12:41 .M/
--- NOTE | 2016-03-18 12:42 | RADRPT ---
PROCEDURE: Ultrasound guided thoracentesis CLINICAL INDICATION: Pleural effusion TECHNIQUE: Multiple sonographic images were obtained through the patient's chest. A site in the lachelle vincent's right lower chest was selected and marked ink pen. The area was prepped and draped in the u sual sterile fashion. The skin and subcutaneous tissues were anesthetized with 10 cc of 1% lidocain e. A a 6-Italian 10 cm long thoracentesis needle was advanced into the pleural space and the introduc er was connected to a vacuum drainage system. A total of 580 cc of clear yellow fluid was drained. The patient tolerated the procedure well. The specimen was sent for laboratory evaluation. COMPARISON: Chest x-ray dated 03/08/2016 FINDINGS: Anechoic fluid visualized in the chest cavity on ultrasound. IMPRESSION: 1. Successful ultrasound-guided thoracentesis without immediate complication. RPTAT: QQ .Jamar Wheatley MD, MD Date Time Electronically viewed and signed by .Jamar Wheatley MD, on 03/18/2016 12:42 .M/
[2016-03-18] MEDS: NICOTINE (21 MG/24 HR) PATCH TRANSDERM SCH (12:45)
--- NOTE | 2016-03-18 13:45 | CONS ---
Date/Time of Note Date/Time of Note DATE: 03/18/16 TIME: 13:43 Consult Date/Type/Reason Admit Date/Time Feb 24, 2016 at 04:06 Initial Consult Date Type of Consultation: pulmonary Subjective Patient stable following thoracentesis today 550 mL removed from right lung Objective Vital Signs Date Time Temp Pulse Resp B/P Pulse Ox O2 Delivery O2 Flow Rate FiO2 03/18/16 12:00 99 03/18/16 11:49 97.9 17 125/44 100 03/18/16 07:50 Nasal Cannula 3.0 Intake and Output 03/17/16 03/17/16 03/18/16 15:00 23:00 07:00 Intake Total 720 ml 570 ml Output Total 1400 ml 1500 ml Balance -680 ml -930 ml GENERAL: Elderly lady appears comfortable at rest no acute distress VITAL SIGNS: per chart NECK: Supple. No JVD or lymphadenopathy. CARDIAC EXAM: S1, S2. No added sounds or murmurs. CHEST: clear bilaterally, No added sounds, rales or wheezes ABDOMEN: Soft, nontender. No guarding or rebound. EXTREMITIES: No cyanosis, clubbing or edema. NEUROLOGIC: Generalized weakness. No focal deficits. Results/Medications Result Diagram: 03/17/1612 03/16/162019 Medications Current Medications Lorazepam (Ativan) 0.5 mg Q6H PRN IV ANXIETY Last administered on 03/17/16 18: 50; Admin Dose 0.5 MG; Start 02/24/16 at 02:00 Ondansetron HCl (Zofran Inj) 4 mg Q6H PRN IV NAUSEA AND/OR VOMITING Last administered on 03/01/16 13:17; Admin Dose 4 MG; Start 02/24/16 at 02:00 Nitroglycerin (Nitroglycerin (Sl Tab) 0.4 Mg) 1 tab Q5M PRN SL CHEST PAIN; Start 02/24/16 at 02:00 Hydralazine HCl (Apresoline) 10 mg Q6H PRN IV SBP > 160 Last administered on 04:35; Admin Dose 10 MG; Start 02/24/16 at 02:00 Labetalol HCl (Labetalol) 10 mg Q6 PRN IV ELEVATED BLOOD PRESSURE; Start at 23:00 Guaifenesin/ Dextromethorphan (Robitussin Dm Liquid Cup) 5 ml Q6 PRN PO COUGH Last administered on 02/27/16 18:12; Admin Dose 5 ML; Start 02/24/16 at 23:00 Nicotine (Nicoderm 21 Mg/ 24hr) 1 patch DAILY TRANSDERM Last administered on 12:45; Admin Dose 1 PATCH; Start 02/26/16 at 09:00 Levothyroxine Sodium (Synthroid) 25 mcg DAILY@06 PO Last administered on 05:55; Admin Dose 25 MCG; Start 02/28/16 at 06:00 Hydromorphone HCl (Dilaudid) 0.5 mg Q3 PRN IV PAIN Last administered on 05:47; Admin Dose 0.5 MG; Start 03/02/16 at 17:00 Heparin Sodium (Porcine) (Heparin (5000 Units/0.5 ml)) 5,000 unit BID SC Last administered on 03/17/16 20:55; Admin Dose 5,000 UNIT; Start 03/02/16 at 21:30 Fidaxomicin (Dificid) 200 mg BID PO Last administered on 03/18/16 09:04; Admin Dose 200 MG; Start 03/07/16 at 21:00 Potassium Chloride 20 meq 20 meq BID PO Last administered on 03/18/16 09:05; Admin Dose 20 MEQ; Start 03/08/16 at 12:30 Potassium Chloride/Dextrose (KCl/D5W) 1,005 ml @ 30 mls/hr Q24H IV Last administered on 03/16/16 14:38; Admin Dose 30 MLS/HR; Start 03/14/16 at 18:30 Dicyclomine HCl (Bentyl) 10 mg BID PO Last administered on 03/18/16 09:04; Admin Dose 10 MG; Start 03/15/16 at 21:00 Metronidazole (Flagyl) 500 mg Q8 PO Last administered on 03/18/16 05:55; Admin Dose 500 MG; Start 03/16/16 at 22:00 Furosemide (Lasix) 40 mg DAILY@06 IV Last administered on 03/18/16 05:50; Admin Dose 40 MG; Start 03/17/16 at 09:30 Vancomycin HCl (Vancomycin Oral Syringe) 250 mg Q6 PO Last administered on 05:57; Admin Dose 250 MG; Start 03/17/16 at 18:00 Verapamil HCl (Verapamil) 5 mg Q6H PRN IV ELEVATED HEART RATE Last administered on 03/17/16 23:45; Admin Dose 5 MG; Start 03/17/16 at 23:30 Zolpidem Tartrate (Ambien) 5 mg HS PRN PO INSOMNIA Last administered on 23:56; Admin Dose 5 MG; Start 03/17/16 at 23:30 Metoprolol Tartrate (Lopressor) 5 mg Q4H PRN IV ELEVATED HEART RATE Last administered on 03/18/16 01:41; Admin Dose 5 MG; Start 03/18/16 at 01:30 Assessment/Plan Chief Complaint/Hosp Course Assessment 1. Right pleural effusion status post thoracentesis. Pleural effusion likely secondary to congestive cardiac failure. Possibly underlying liver disease. 2. History of bowel obstruction status post surgery 3. Deconditioning 4. History of fall with pneumothorax Plan 1 pleural fluid studies 2. Continue physical therapy 3. Renal recommendations 4. Aspiration precautions Discussed with family patient will likely need SNF placement Problems: RUBEN ARRINGTON MD, [facility] Mar 18, 2016 13:45
[2016-03-18] MEDS: POTASSIUM CHLORIDE 10 MEQ in DEXTROSE 5% 1,000 ML IV SCH (14:46)
--- NOTE | 2016-03-18 15:18 | RADRPT ---
PROCEDURE: XR Chest. CLINICAL INDICATION: Post thoracentesis TECHNIQUE: Anterior chest x-ray. COMPARISON: 03/18/2016 at 1231 hours FINDINGS: Right internal jugular central venous catheter demonstrates stable and satisfactory position. Low lung volumes with left basilar consolidation and mild patchy airspace opacity in the right lung base, unchanged from previous exam. Small left pleural effusion, unchanged. There is no evidence of pneumothorax. The cardiomediastinal silhouette is unremarkable. The soft tissues are normal. Osseous structures are unremarkable. IMPRESSION: 1. No evidence of pneumothorax, post thoracentesis. 2. Stable and satisfactory position of right internal jugular central venous catheter. 3. Bibasilar atelectasis versus infiltrate, left greater than right, unchanged from previous exam. 4. Small left pleural effusion, unchanged. RPTAT: QQ .Jamar Wheatley MD, MD Date Time Electronically viewed and signed by .Jamar Wheatley MD, MD on 03/18/2016 15:17 .M/
[2016-03-18 15:27] LABS: TOTAL PROTEIN 2.4 g/dl (6.1-8.1)
[2016-03-18 15:57] LABS: FLUID GLUCOSE 108 mg/dl; FLUID LD 464 U/L; FLUID TYPE FLUID
--- NOTE | 2016-03-18 16:09 | QN ---
Documentation Comment Date/Time of Note Date/Time of Note DATE: 03/17/16 TIME: 20:30 Assessment/Plan Assessment/Plan 1. Abdominal pain, with CT diagnosis of pancolitis, with significant leukocytosis and bandemia. s/p Lap exploration and only small mid transverse with min mottling. Bowel function. Improving. -Antibiotics per ID -Judicious fluid management 2. Sepsis, multifactorial (pancolitis ? ischemic, urinary tract infection, pulmonary infiltrates, bacteremia). Improved -Antibiotic therapy. -Judicious fluid management. -Close monitoring. 3. Renal insufficiency secondary to sepsis. Improving Cr -Continue judicious fluid management. -Avoid nephrotoxic agents as possible. 4. Anemia, with recent hemothorax requiring VATS decortication. -Transfuse as needed. 5. Hypoalbuminemia. -Eventual nutritional optimization. 6. Hypernatremia -Correct with fluid management. 7. Hypertension. -Nutritional and medication optimization. 8. Hypothyroidism. -Replace hormone. 9. Hemopneumothorax, status post VATS. CT removed -followed by CT surgery. 10. Cervical spine injury, being maintained in brace by neurosurgery. Thank you, Subjective 24 Hr Interval Summary Leukocytosis again. No f/c. No v. Bowel function. On feeds. Min bloated. No cough. No sz. No rash. Min serous drainage from the abdominal incision Exam/Review of Systems Vital Signs Vital noted Exam Free Text/Dictation GENERAL: NAD HEENT: Pupils equal, reactive. No scleral icterus. Mucous membranes are somewhat dry. NECK: No crepitus. No JVD. PULMONARY: Normal respiratory effort ABDOMEN: Min tender. No rebound/guarding/rigidity. Distended. Min serous leak from left abdominal incision. EXTREMITIES: Trace edema. VASCULAR: Capillary refill is 2 seconds. NEUROLOGIC: Responsive SKIN: No rashes/jaundice. PSYCH: Normal affect Results Result Diagram: Noted CHRISTIANO JENNINGS MD Mar 18, 2016 16:09
--- NOTE | 2016-03-18 16:12 | PN ---
Date/Time of Note Date/Time of Note DATE: 03/18/16 TIME: 16:10 Assessment/Plan Lines/Catheters IV Catheter Type (from [facility]): Central Line Francois in Place (from [facility]): Yes Assessment/Plan Chief Complaint/Hosp Course 1. Abdominal pain, with CT diagnosis of pancolitis, with significant leukocytosis and bandemia. s/p Lap exploration and only small mid transverse with min mottling. Bowel function. Improving. -Antibiotics per ID -Judicious fluid management 2. Sepsis, multifactorial (pancolitis ? ischemic, urinary tract infection, pulmonary infiltrates, bacteremia). Improved -Antibiotic therapy. -Judicious fluid management. -Close monitoring. 3. Renal insufficiency secondary to sepsis. Improving Cr -Continue judicious fluid management. -Avoid nephrotoxic agents as possible. 4. Anemia, with recent hemothorax requiring VATS decortication. -Transfuse as needed. 5. Hypoalbuminemia. -Eventual nutritional optimization. 6. Hypernatremia -Correct with fluid management. 7. Hypertension. -Nutritional and medication optimization. 8. Hypothyroidism. -Replace hormone. 9. Hemopneumothorax, status post VATS. CT removed -followed by CT surgery. 10. Cervical spine injury, being maintained in brace by neurosurgery. Thank you, Problems: Subjective 24 Hr Interval Summary s/p Thoracentesis and 550 ml removal from right side 03/18. Leukocytosis again. No f/c. No v. Bowel function. On feeds. Min bloated. No cough. No sz. No rash. Min serous drainage from the abdominal incision on/off. Exam/Review of Systems Vital Signs Vitals Vital Signs Date Time Temp Pulse Resp B/P Pulse Ox O2 Delivery O2 Flow Rate FiO2 03/18/16 16:04 123 03/18/16 16:01 100.9 19 117/51 98 03/18/16 07:50 Nasal Cannula 3.0 Intake and Output 03/17/16 03/17/16 03/18/16 15:00 23:00 07:00 Intake Total 720 ml 570 ml Output Total 1400 ml 1500 ml Balance -680 ml -930 ml Exam Free Text/Dictation GENERAL: NAD HEENT: Pupils equal, reactive. No scleral icterus. Mucous membranes are somewhat dry. NECK: No crepitus. No JVD. PULMONARY: Normal respiratory effort ABDOMEN: Min tender. No rebound/guarding/rigidity. Distended. Min serous leak from left abdominal incision. EXTREMITIES: Trace edema. VASCULAR: Capillary refill is 2 seconds. NEUROLOGIC: Responsive SKIN: No rashes/jaundice. PSYCH: Normal affect Results Result Diagram: 03/17/1661103/16/162019 CHRISTIANO JENNINGS MD Mar 18, 2016 16:12
--- NOTE | 2016-03-18 18:49 | CONS ---
Date/Time of Note Date/Time of Note DATE: 03/18/16 TIME: 18:46 Assessment/Plan Assessment/Plan Chief Complaint/Hosp Course SUBJECTIVE: No acute changes. Patient is sleeping, s/p thoracentesis, she is in no distress, no fevers. DIAGNOSTICS: CT of the chest and abdomen repeated yesterday revealed moderate sized right and midsize left pleural effusion, increased when compared to prior examination, mild to moderate volume ascites with diffuse anasarca that is increased. Evidence of diffuse colitis with interval increase in bowel wall edema as noted above. ANTIMICROBIALS: The patient is on. 1. Dificid 2. Flagyl. INDWELLINGS: Right IJ triple-lumen catheter, Francois catheter. PHYSICAL EXAMINATION: GENERAL: This is a well-developed, fragile, elderly woman who is in no distress. HEENT: Head atraumatic, normocephalic. Sclerae anicteric. Buccal mucosa pink. NECK: Supple. CHEST: Rise symmetrical. Breath sounds with scattered crackles to bases. HEART: S1, S2. ABDOMEN: Obese, soft. Bowel tones hypoactive. EXTREMITIES: Bilateral edema. SKIN: Positive for anasarca. ASSESSMENT: 1. Status post sepsis. 2. Pancolitis, ongoing. 3. Bilateral pleural effusions==> s/p R thoracentesis. 4. Ascites. 5. Status post pneumothorax secondary to the hip fracture requiring video- assisted thoracic surgery with chest tube placement, removed. 6. History of cervical spine injury. 7. Status post Ann glabrata urinary tract infection. PLAN: The patient remains clinically unchanged. She is being seen by multiple consultants. Pending fluid cx, continue present care/abx DW family at bedside Problems: Consultation Date/Type/Reason Admit Date/Time Feb 24, 2016 at 04:06 Type of Consultation: ID Exam/Review of Systems Vital Signs Vitals Vital Signs Date Time Temp Pulse Resp B/P Pulse Ox O2 Delivery O2 Flow Rate FiO2 03/18/16 18:39 2.0 03/18/16 16:04 123 03/18/16 16:01 100.9 19 117/51 98 03/18/16 07:50 Nasal Cannula Intake and Output 03/17/16 03/17/16 03/18/16 15:00 23:00 07:00 Intake Total 720 ml 570 ml Output Total 1400 ml 1500 ml Balance -680 ml -930 ml Results Result Diagram: 2/3/17 0612 03/16/16 2020 Results 24 hrs Laboratory Tests Test 03/18/16 11:55 Body Fluid Glucose 108 Body Fluid Lactate Dehydrogenase 464 Body Fluid Type FLUID Total Protein 2.4 L Medications Medications Current Medications Lorazepam (Ativan) 0.5 mg Q6H PRN IV ANXIETY Last administered on 03/17/16 18: 50; Admin Dose 0.5 MG; Start 02/24/16 at 02:00 Ondansetron HCl (Zofran Inj) 4 mg Q6H PRN IV NAUSEA AND/OR VOMITING Last administered on 03/01/16 13:17; Admin Dose 4 MG; Start 02/24/16 at 02:00 Nitroglycerin (Nitroglycerin (Sl Tab) 0.4 Mg) 1 tab Q5M PRN SL CHEST PAIN; Start 02/24/16 at 02:00 Hydralazine HCl (Apresoline) 10 mg Q6H PRN IV SBP > 160 Last administered on 04:35; Admin Dose 10 MG; Start 02/24/16 at 02:00 Labetalol HCl (Labetalol) 10 mg Q6 PRN IV ELEVATED BLOOD PRESSURE; Start at 23:00 Guaifenesin/ Dextromethorphan (Robitussin Dm Liquid Cup) 5 ml Q6 PRN PO COUGH Last administered on 02/27/16 18:12; Admin Dose 5 ML; Start 02/24/16 at 23:00 Nicotine (Nicoderm 21 Mg/ 24hr) 1 patch DAILY TRANSDERM Last administered on 12:45; Admin Dose 1 PATCH; Start 02/26/16 at 09:00 Levothyroxine Sodium (Synthroid) 25 mcg DAILY@06 PO Last administered on 05:55; Admin Dose 25 MCG; Start 02/28/16 at 06:00 Hydromorphone HCl (Dilaudid) 0.5 mg Q3 PRN IV PAIN Last administered on 15:53; Admin Dose 0.5 MG; Start 03/02/16 at 17:00 Heparin Sodium (Porcine) (Heparin (5000 Units/0.5 ml)) 5,000 unit BID SC Last administered on 03/17/16 20:55; Admin Dose 5,000 UNIT; Start 03/02/16 at 21:30 Fidaxomicin (Dificid) 200 mg BID PO Last administered on 03/18/16 09:04; Admin Dose 200 MG; Start 03/07/16 at 21:00 Potassium Chloride 20 meq 20 meq BID PO Last administered on 03/18/16 09:05; Admin Dose 20 MEQ; Start 03/08/16 at 12:30 Potassium Chloride/Dextrose (KCl/D5W) 1,005 ml @ 30 mls/hr Q24H IV Last administered on 03/18/16 14:46; Admin Dose 30 MLS/HR; Start 03/14/16 at 18:30 Dicyclomine HCl (Bentyl) 10 mg BID PO Last administered on 03/18/16 09:04; Admin Dose 10 MG; Start 03/15/16 at 21:00 Metronidazole (Flagyl) 500 mg Q8 PO Last administered on 03/18/16 14:43; Admin Dose 500 MG; Start 03/16/16 at 22:00 Vancomycin HCl (Vancomycin Oral Syringe) 250 mg Q6 PO Last administered on 17:38; Admin Dose 250 MG; Start 03/17/16 at 18:00 Verapamil HCl (Verapamil) 5 mg Q6H PRN IV ELEVATED HEART RATE Last administered on 03/17/16 23:45; Admin Dose 5 MG; Start 03/17/16 at 23:30 Zolpidem Tartrate (Ambien) 5 mg HS PRN PO INSOMNIA Last administered on 23:56; Admin Dose 5 MG; Start 03/17/16 at 23:30 Metoprolol Tartrate (Lopressor) 5 mg Q4H PRN IV ELEVATED HEART RATE Last administered on 03/18/16 01:41; Admin Dose 5 MG; Start 03/18/16 at 01:30 PHOEBE BANDA NP Mar 18, 2016 18:49
[2016-03-18 19:43] LABS: FLUID APPEARANCE CLEAR; FLUID NEUTROPHILS 11 %; FLUID RBC EST 1+; FLUID TYPE THORACENTHESIS; FLUID WBC'S 43 /cmm
[2016-03-18 19:44] LABS: FLUID BASOPHIL 0 %; FLUID EOSINOPHIL 0 %; FLUID LYMPHOCYTES 59 %; FLUID MONOCYTES 28 %
[2016-03-18] MEDS ORDERED: ACETAMINOPHEN 325 MG TAB PO PRN (23:30)
[2016-03-19] VITALS (45 sets, daily range): BP systolic 71–135; BP diastolic 43–67; PULSE 52–113; RESP 13–22
[2016-03-19] MEDS: VANCOMYCIN HCL 250 MG/5ML POSYG PO SCH ×4 (01:18→18:03)
[2016-03-19] MEDS: HYDROmorphONE 1 MG/ML SYG IV PRN ×3 (01:18→13:15)
[2016-03-19] MEDS: metroNIDAZOLE 500 MG TAB PO SCH ×3 (06:21→21:42)
[2016-03-19] MEDS: LEVOTHYROXINE 25 MCG TAB PO SCH (06:21)
[2016-03-19] MEDS: FUROSEMIDE 40 MG INJ IV SCH ×3 (06:22→21:00)
[2016-03-19] MEDS ORDERED: SUCCINYLCHOLINE CHLORIDE 100 MG/5 ML SYG IV ONE (07:00)
[2016-03-19] MEDS ORDERED: VANCOMYCIN IV PER PHARMACY XX SCH (08:30)
[2016-03-19] MEDS: FIDAXOMICIN 200 MG TABLET PO SCH ×2 (08:43→21:42)
[2016-03-19] MEDS: DICYCLOMINE 10 MG CAP PO SCH ×2 (08:44→21:42)
[2016-03-19] MEDS: NICOTINE (21 MG/24 HR) PATCH TRANSDERM SCH (08:45)
[2016-03-19] MEDS: POTASSIUM CHLORIDE 20 MEQ POWDER FOR ORAL SOLN PO SCH ×2 (08:45→21:42)
[2016-03-19] MEDS: HEPARIN 5,000 UNIT/0.5 ML SYG SC SCH ×2 (08:52→21:54)
[2016-03-19] MEDS: FLUCONAZOLE 100 MG/NS (PMX) 50 ML IVPB SCH (08:53)
[2016-03-19] MEDS ORDERED: VANCOMYCIN 1 GM in NS 250 ML IVPB SCH (09:00)
[2016-03-19] MEDS: MEROPENEM 500 MG/100 ML (PMX) 100 ML IVPB SCH ×2 (10:02→21:42)
[2016-03-19 11:59] LABS: HEMATOCRIT 31.5 % (37.0-47.0); HEMOGLOBIN 10.2 g/dl (12.0-16.0); MEAN CORPUSCULAR HGB CONC 32.5 g/dl (32.0-37.0); MEAN CORPUSCULAR VOLUME 95.5 fl (82.0-101.0); MEAN PLATELET VOLUME 10.4 fl (7.4-10.4); PLATELET COUNT 224 10^3/UL (140-440); RED BLOOD COUNT 3.29 10^6/ul (4.20-5.40); RED CELL DISTRIBUTION WIDTH 18.5 % (11.5-14.5); UNCORRECTED WBC 27.6 10^3/ul (4.8-10.8); WHITE BLOOD COUNT 27.6 10^3/ul (4.8-10.8)
[2016-03-19 12:05] LABS: CONDITION 1; LH ANALYZER COMMENTS 1; SUSPECT 1
[2016-03-19 12:17] LABS: ALBUMIN 2.2 g/dl (3.3-4.9)
[2016-03-19 12:20] LABS: BILIRUBIN,INDIRECT 0.1 mg/dl (0-1.1); BILIRUBIN,TOTAL 0.1 mg/dl (0.2-1.3); CREATININE 1.4 mg/dl (0.44-1.00); TOTAL PROTEIN 4.7 g/dl (6.1-8.1)
[2016-03-19 12:21] LABS: CALCIUM 7.6 mg/dl (8.4-10.2)
[2016-03-19 13:05] LABS: LYMPHOCYTES # 1.7 10^3/ul (0.8-2.9); NEUTROPHIL # 23.2 10^3/ul (1.6-7.5)
[2016-03-19 13:17] LABS: ALBUMIN/GLOBULIN RATIO 0.88; POTASSIUM 2.7 mmol/L (3.5-5.1)
[2016-03-19] MEDS ORDERED: POTASSIUM CHLORIDE 250 ML IVPB STA (14:40)
[2016-03-19] MEDS ORDERED: SOD CHLORIDE 0.9% 1,000 ML IV STA (15:21)
--- NOTE | 2016-03-19 15:24 | CONS ---
Date/Time of Note Date/Time of Note DATE: 03/19/16 TIME: 15:23 Consult Date/Type/Reason Admit Date/Time Feb 24, 2016 at 04:06 Type of Consultation: Pulm Subjective Little more somnolent this morning Objective Vital Signs Date Time Temp Pulse Resp B/P Pulse Ox O2 Delivery O2 Flow Rate FiO2 03/19/16 12:16 104 03/19/16 11:12 97.5 20 130/61 99 03/19/16 07:56 Nasal Cannula 3.0 Intake and Output 03/18/16 03/18/16 03/19/16 15:00 23:00 07:00 Intake Total 600 ml 610 ml Output Total 1200 ml 2000 ml Balance -600 ml -1390 ml GENERAL: Elderly lady appears comfortable at rest no acute distress VITAL SIGNS: per chart NECK: Supple. No JVD or lymphadenopathy. CARDIAC EXAM: S1, S2. No added sounds or murmurs. CHEST: clear bilaterally, No added sounds, rales or wheezes ABDOMEN: Soft, nontender. No guarding or rebound. EXTREMITIES: No cyanosis, clubbing or edema. NEUROLOGIC: Generalized weakness. No focal deficits. Results/Medications Result Diagram: 03/19/16 1120 03/19/16 1120 Results 24 hrs Laboratory Tests Test 03/19/16 11:20 Alanine Aminotransferase (ALT/SGPT) 30 Albumin 2.2 L Albumin/Globulin Ratio 0.88 Alkaline Phosphatase 114 Anion Gap 15 Aspartate Amino Transf (AST/SGOT) 24 Band Neutrophils % 10.0 H Blood Morphology Comment Blood Urea Nitrogen 42 H Calcium Level 7.6 L Carbon Dioxide Level 24 Chloride Level 114 H Creatinine 1.40 H Direct Bilirubin 0.00 Globulin 2.50 Glucose Level 132 Hematocrit 31.5 L Hemoglobin 10.2 L Indirect Bilirubin 0.1 Lymphocytes # 1.7 Lymphocytes % 6.0 L Mean Corpuscular Hemoglobin 31.0 Mean Corpuscular Hemoglobin Concent 32.5 Mean Corpuscular Volume 95.5 Mean Platelet Volume 10.4 Neutrophils # 23.2 H Neutrophils % 84.0 H Platelet Count 224 Potassium Level 2.7 *L Red Blood Count 3.29 L Red Cell Distribution Width 18.5 H Sodium Level 150 H Total Bilirubin 0.1 L Total Protein 4.7 #L White Blood Count 27.6 #H Medications Current Medications Lorazepam (Ativan) 0.5 mg Q6H PRN IV ANXIETY Last administered on 03/17/16 18: 50; Admin Dose 0.5 MG; Start 02/24/16 at 02:00 Ondansetron HCl (Zofran Inj) 4 mg Q6H PRN IV NAUSEA AND/OR VOMITING Last administered on 03/01/16 13:17; Admin Dose 4 MG; Start 02/24/16 at 02:00 Nitroglycerin (Nitroglycerin (Sl Tab) 0.4 Mg) 1 tab Q5M PRN SL CHEST PAIN; Start 02/24/16 at 02:00 Hydralazine HCl (Apresoline) 10 mg Q6H PRN IV SBP > 160 Last administered on 04:35; Admin Dose 10 MG; Start 02/24/16 at 02:00 Labetalol HCl (Labetalol) 10 mg Q6 PRN IV ELEVATED BLOOD PRESSURE; Start at 23:00 Guaifenesin/ Dextromethorphan (Robitussin Dm Liquid Cup) 5 ml Q6 PRN PO COUGH Last administered on 02/27/16 18:12; Admin Dose 5 ML; Start 02/24/16 at 23:00 Nicotine (Nicoderm 21 Mg/ 24hr) 1 patch DAILY TRANSDERM Last administered on 08:45; Admin Dose 1 PATCH; Start 02/26/16 at 09:00 Levothyroxine Sodium (Synthroid) 25 mcg DAILY@06 PO Last administered on 06:21; Admin Dose 25 MCG; Start 02/28/16 at 06:00 Hydromorphone HCl (Dilaudid) 0.5 mg Q3 PRN IV PAIN Last administered on 13:15; Admin Dose 0.5 MG; Start 03/02/16 at 17:00 Heparin Sodium (Porcine) (Heparin (5000 Units/0.5 ml)) 5,000 unit BID SC Last administered on 03/19/16 08:52; Admin Dose 5,000 UNIT; Start 03/02/16 at 21:30 Fidaxomicin (Dificid) 200 mg BID PO Last administered on 03/19/16 08:43; Admin Dose 200 MG; Start 03/07/16 at 21:00 Potassium Chloride 20 meq 20 meq BID PO Last administered on 03/19/16 08:45; Admin Dose 20 MEQ; Start 03/08/16 at 12:30 Potassium Chloride/Dextrose (KCl/D5W) 1,005 ml @ 30 mls/hr Q24H IV Last administered on 03/18/16 14:46; Admin Dose 30 MLS/HR; Start 03/14/16 at 18:30 Dicyclomine HCl (Bentyl) 10 mg BID PO Last administered on 03/19/16 08:44; Admin Dose 10 MG; Start 03/15/16 at 21:00 Metronidazole (Flagyl) 500 mg Q8 PO Last administered on 03/19/16 14:47; Admin Dose 500 MG; Start 03/16/16 at 22:00 Vancomycin HCl (Vancomycin Oral Syringe) 250 mg Q6 PO Last administered on 11:47; Admin Dose 250 MG; Start 03/17/16 at 18:00 Verapamil HCl (Verapamil) 5 mg Q6H PRN IV ELEVATED HEART RATE Last administered on 03/17/16 23:45; Admin Dose 5 MG; Start 03/17/16 at 23:30 Zolpidem Tartrate (Ambien) 5 mg HS PRN PO INSOMNIA Last administered on 23:56; Admin Dose 5 MG; Start 03/17/16 at 23:30 Metoprolol Tartrate (Lopressor) 5 mg Q4H PRN IV ELEVATED HEART RATE Last administered on 03/18/16 01:41; Admin Dose 5 MG; Start 03/18/16 at 01:30 Acetaminophen 650 mg 650 mg Q6H PRN PO PAIN AND OR ELEVATED TEMP Last administered on 03/19/16 01:18; Admin Dose 650 MG; Start 03/18/16 at 23:30 Meropenem 100 ml @ 200 mls/hr Q12 IVPB Last administered on 03/19/16 10:02; Admin Dose 200 MLS/HR; Start 03/19/16 at 09:00 Fluconazole/ Sodium Chloride 50 ml @ 50 mls/hr Q24H IVPB Last administered on 08:53; Admin Dose 50 MLS/HR; Start 03/19/16 at 08:30 Vancomycin HCl/ Sodium Chloride (Vancocin/NS) 150 ml @ 75 mls/hr Q12H IVPB ; Start 03/20/16 at 00:00 Assessment/Plan Chief Complaint/Hosp Course Assessment 1. Right pleural effusion status post thoracentesis. Pleural effusion likely secondary to congestive cardiac failure. Possibly underlying liver disease. 2. History of bowel obstruction status post surgery. Pancolitis on CT 3. Deconditioning 4. History of fall with pneumothorax Plan 1. Surgical recommendations 2. Continue physical therapy 3. Renal recommendations 4. Aspiration precautions prognosis guarded. Problems: RUBEN ARRINGTON MD, [facility] Mar 19, 2016 15:24
[2016-03-19] MEDS ORDERED: IODIXANOL LOCM 100 ML BTL ONE (15:51)
[2016-03-19] MEDS ORDERED: SOD CHLORIDE 0.9% 100 ML ONE (15:51)
--- NOTE | 2016-03-19 16:14 | RADRPT ---
PROCEDURE: CT Brain without contrast. CLINICAL INDICATION: Altered mental status TECHNIQUE: Routine CT scan of the brain was performed on a high resolution multi detector scanner without intravenous contrast. One or more of the following dose reduction techniques were used: Auto mated exposure control; Adjustment of the mA and/or kV according to patient size; Use of iterative r econstruction technique. CTDI = 43 mGy. DLP = 630 mGy-cm. COMPARISON: CT brain 02/24/2016 FINDINGS: Hemorrhage: No evidence of intracranial hemorrhage. Acute ischemic changes: No evidence of acute ischemic changes. Mass effect/Midline shift: None. Parenchymal volume: Moderate central parenchymal volume loss is evident. Ventricular system: Concordant with parenchymal volume. Chronic changes: There are scattered areas of low attenuation change within the supratentorial white matter most compatible with moderate chronic microvascular ischemic changes. Atherosclerotic calcifications of the cavernous portions of both internal carotid arteries are prese nt. Extracranial soft tissues: Unremarkable. Calvarium: No fractures. Paranasal sinuses: Minimal secretions within the sphenoid sinuses and ethmoid air cells. Mastoid air cells: Minimal fluid within the mastoid air cells bilaterally. IMPRESSION: No acute intracranial abnormalities. Moderate chronic-appearing microvascular ischemic changes of the supratentorial white matter, unchan ged. RPTAT: AADD .Gray Trujillo MD, MD Date Time Electronically viewed and signed by .Gray Trujillo MD, on 03/19/2016 16:14 .B/
--- NOTE | 2016-03-19 16:32 | PN ---
Date/Time of Note Date/Time of Note DATE: 03/19/16 TIME: 16:30 Assessment/Plan Lines/Catheters IV Catheter Type (from [facility]): Central Line Francois in Place (from [facility]): Yes Assessment/Plan Chief Complaint/Hosp Course 1. Abdominal pain, with CT diagnosis of pancolitis, with significant leukocytosis and bandemia. s/p Lap exploration and only small mid transverse with min mottling. Bowel function. -Antibiotics per ID -Judicious fluid management 2. Sepsis, multifactorial (pancolitis ? ischemic, urinary tract infection, pulmonary infiltrates, bacteremia). Worsening leukocytosis ? etiology -cultures -Antibiotic therapy. -Judicious fluid management. -Close monitoring. 3. Renal insufficiency secondary to sepsis. Improving Cr -Continue judicious fluid management. -Avoid nephrotoxic agents as possible. 4. Anemia, with recent hemothorax requiring VATS decortication. -Transfuse as needed. 5. Hypoalbuminemia. -Eventual nutritional optimization. 6. Hypernatremia -Correct with fluid management. 7. Hypertension. -Nutritional and medication optimization. 8. Hypothyroidism. -Replace hormone. 9. Hemopneumothorax, status post VATS. CT removed -followed by CT surgery. 10. Cervical spine injury, being maintained in brace by neurosurgery. Thank you, Problems: Subjective 24 Hr Interval Summary Worsening leukocytosis. s/p Thoracentesis and 550 ml removal from right side 03/18. Leukocytosis again. No f/c. No v. Bowel function. On feeds. Min bloated. No cough. No sz. No rash. Min serous drainage from the abdominal incision on/off. Exam/Review of Systems Vital Signs Vitals Vital Signs Date Time Temp Pulse Resp B/P Pulse Ox O2 Delivery O2 Flow Rate FiO2 03/19/16 16:05 2.0 03/19/16 15:59 52 03/19/16 11:12 97.5 20 130/61 99 03/19/16 07:56 Nasal Cannula Intake and Output 03/18/16 03/18/16 03/19/16 15:00 23:00 07:00 Intake Total 600 ml 610 ml Output Total 1200 ml 2000 ml Balance -600 ml -1390 ml Exam Free Text/Dictation GENERAL: NAD. More lethargic HEENT: Pupils equal, reactive. No scleral icterus. Mucous membranes are somewhat dry. NECK: No crepitus. No JVD. PULMONARY: Normal respiratory effort ABDOMEN: Min tender. No rebound/guarding/rigidity. Distended. Min serous leak from left abdominal incision. EXTREMITIES: Trace edema. VASCULAR: Capillary refill is 2 seconds. NEUROLOGIC: Responsive but lethargic SKIN: No rashes/jaundice. PSYCH: Drowsy Results Result Diagram: 03/19/16 1120 03/19/16 1120 CHRISTIANO JENNINGS MD Mar 19, 2016 16:32
--- NOTE | 2016-03-19 16:45 | EN ---
Date/Time of Note Date/Time of Note DATE: 03/19/16 TIME: 16:41 ER Progress Note A CODE BLUE was called on the patient. I arrived and respiratory therapist was providing oxygen with a bag valve mask. The patient had a pulse so no CPR was in progress. It appeared to be a respiratory arrest of some kind. I did not have any information in regards to the history of present illness. Physical examination reveals a female lying supine on the bed unresponsive. HEENT reveals some blood coming from the nares and mouth. No obvious trauma noted. Pupils are bilateral reactive. Cardiovascular regular rate and rhythm no murmurs rubs or gallops Lungs reveal agonal respirations with poor inspiratory effort Abdomen is soft with minimal bowel sounds Neurologically she is unresponsive. GCS equals E1 M1 V1 I immediately set up for intubation. The ICU nurse was there. She was directed to give 100 mg of succinylcholine IV. I asked for Versed but was unavailable. The patient was completely unresponsive however. We went ahead and push the succinylcholine IV. She was intubated on first attempt. Endotracheal Intubation by me: Pre assessment performed. See preceding note for details. Pre-oxygenation performed with 100% oxygen RSI: Performed w/o complication or hypoxic events. Medications as ordered. Blade: [Mac 4] ET Tube: 7.5 cm Depth: 20 cm at the lip Intubation confirmed by colorimetric CO2, equal breath sounds, quiet over the stomach. Care was then turned over to Dr. Morris who is the patient's admitting physician. Family was at the bedside at this time. LEEANN LY Mar 19, 2016 16:45
[2016-03-19] MEDS: POTASSIUM CHLORIDE 10 MEQ in DEXTROSE 5%-0.9% NACL 1,000 ML IV SCH (17:00)
[2016-03-19] MEDS ORDERED: LIDOCAINE 1% (MDV) 20 ML INJ SC ONE (17:00)
--- NOTE | 2016-03-19 17:03 | CONS ---
Date/Time of Note Date/Time of Note DATE: 03/19/16 TIME: 16:58 Assessment/Plan Assessment/Plan Additional Assessment/Plan Impression: 1. Pancolitis: likely ischemic. c.difficile negative, no infarct on laparotomy exam, culture, wbc in stool negative. 2. Fracture of the ribs. 3. Pneumothorax status post chest tube placement. 4. History of nicotine addiction. 5. Cervical spine injury. 6. History of fall. 7. Peripheral arterial disease. 8. Mild elevation of alkaline phosphatase, most probably related to alcoholic liver disease. 9. Anemia. 10. dysphagia on tube feeds 11.s/p exploratory laparotomy,no bowel resection 12.respiratory failure 13. renal failure,improving [address] shows anasarca ascites, pleural effusion,colitis worsening 16 respiratory failure,on Vent,second time 17 leucocytosis PLAN: 1. Continue antibiotics and anti-fungal per ID 2. continue tube feeds with nephro 3. antibiotics as per ID 4, ng tube feeding 5. Continue supportive care per primary and other consultants 6.albumin and diuretic daily for few days 6.Bentyl 7.thoracocentesis,VATS yesterday Plan continue all supportive care ng tube feeding in am Consultation Date/Type/Reason Admit Date/Time Feb 24, 2016 at 04:06 Type of Consultation: Pulm 24 HR Interval Summary Free Text/Dictation had thoracocentesis yesterday,pt.intubated 1 hr ago Subjective hx not possible: pt critical Exam/Review of Systems Vital Signs Vitals Vital Signs Date Time Temp Pulse Resp B/P Pulse Ox O2 Delivery O2 Flow Rate FiO2 03/19/16 16:05 2.0 03/19/16 15:59 52 03/19/16 11:12 97.5 20 130/61 99 03/19/16 07:56 Nasal Cannula Intake and Output 03/18/16 03/18/16 03/19/16 15:00 23:00 07:00 Intake Total 600 ml 610 ml Output Total 1200 ml 2000 ml Balance -600 ml -1390 ml Exam Constitutional: alert, oriented, well developed Psych: nl mood/affect, no complaints Head: atraumatic, normocephalic Eyes: EOMI, PERRL, nl conjunctiva, nl lids, nl sclera ENMT: nl external ears & nose, nl lips & teeth, nl nasal mucosa & septum Neck: non-tender, supple Respiratory: clear to auscultation, normal air movement Cardiovascular: nl pulses, regular rate and rhythm Gastrointestinal: nl liver, spleen, non-tender, soft Musculoskeletal: nl extremities to inspection, nl gait and stance Extremities: normal pulses Neurological: POLICE CADET II-XII intact, nl mental status, nl speech, nl strength Skin: nl turgor, No rash or lesions Lymph: nl lymph nodes Results Result Diagram: 03/19/16 1120 03/19/16 1120 Results 24 hrs Laboratory Tests Test 03/19/16 11:20 03/19/16 15:19 Alanine Aminotransferase (ALT/SGPT) 30 Albumin 2.2 L Albumin/Globulin Ratio 0.88 Alkaline Phosphatase 114 Anion Gap 15 Aspartate Amino Transf (AST/SGOT) 24 Band Neutrophils % 10.0 H Blood Morphology Comment Blood Urea Nitrogen 42 H Calcium Level 7.6 L Carbon Dioxide Level 24 Chloride Level 114 H Creatinine 1.40 H Direct Bilirubin 0.00 Globulin 2.50 Glucose Level 132 Hematocrit 31.5 L Hemoglobin 10.2 L Indirect Bilirubin 0.1 Lymphocytes # 1.7 Lymphocytes % 6.0 L Mean Corpuscular Hemoglobin 31.0 Mean Corpuscular Hemoglobin Concent 32.5 Mean Corpuscular Volume 95.5 Mean Platelet Volume 10.4 Neutrophils # 23.2 H Neutrophils % 84.0 H Platelet Count 224 Potassium Level 2.7 *L Red Blood Count 3.29 L Red Cell Distribution Width 18.5 H Sodium Level 150 H Total Bilirubin 0.1 L Total Protein 4.7 #L White Blood Count 27.6 #H Bedside Glucose 139 Medications Medications Current Medications Lorazepam (Ativan) 0.5 mg Q6H PRN IV ANXIETY Last administered on 03/17/16 18: 50; Admin Dose 0.5 MG; Start 02/24/16 at 02:00 Ondansetron HCl (Zofran Inj) 4 mg Q6H PRN IV NAUSEA AND/OR VOMITING Last administered on 03/01/16 13:17; Admin Dose 4 MG; Start 02/24/16 at 02:00 Nitroglycerin (Nitroglycerin (Sl Tab) 0.4 Mg) 1 tab Q5M PRN SL CHEST PAIN; Start 02/24/16 at 02:00 Hydralazine HCl (Apresoline) 10 mg Q6H PRN IV SBP > 160 Last administered on 04:35; Admin Dose 10 MG; Start 02/24/16 at 02:00 Labetalol HCl (Labetalol) 10 mg Q6 PRN IV ELEVATED BLOOD PRESSURE; Start at 23:00 Guaifenesin/ Dextromethorphan (Robitussin Dm Liquid Cup) 5 ml Q6 PRN PO COUGH Last administered on 02/27/16 18:12; Admin Dose 5 ML; Start 02/24/16 at 23:00 Nicotine (Nicoderm 21 Mg/ 24hr) 1 patch DAILY TRANSDERM Last administered on 08:45; Admin Dose 1 PATCH; Start 02/26/16 at 09:00 Levothyroxine Sodium (Synthroid) 25 mcg DAILY@06 PO Last administered on 06:21; Admin Dose 25 MCG; Start 02/28/16 at 06:00 Hydromorphone HCl (Dilaudid) 0.5 mg Q3 PRN IV PAIN Last administered on 13:15; Admin Dose 0.5 MG; Start 03/02/16 at 17:00 Heparin Sodium (Porcine) (Heparin (5000 Units/0.5 ml)) 5,000 unit BID SC Last administered on 03/19/16 08:52; Admin Dose 5,000 UNIT; Start 03/02/16 at 21:30 Fidaxomicin (Dificid) 200 mg BID PO Last administered on 03/19/16 08:43; Admin Dose 200 MG; Start 03/07/16 at 21:00 Potassium Chloride 20 meq 20 meq BID PO Last administered on 03/19/16 08:45; Admin Dose 20 MEQ; Start 03/08/16 at 12:30 Potassium Chloride/Dextrose (KCl/D5W) 1,005 ml @ 30 mls/hr Q24H IV Last administered on 03/18/16 14:46; Admin Dose 30 MLS/HR; Start 03/14/16 at 18:30 Dicyclomine HCl (Bentyl) 10 mg BID PO Last administered on 03/19/16 08:44; Admin Dose 10 MG; Start 03/15/16 at 21:00 Metronidazole (Flagyl) 500 mg Q8 PO Last administered on 03/19/16 14:47; Admin Dose 500 MG; Start 03/16/16 at 22:00 Vancomycin HCl (Vancomycin Oral Syringe) 250 mg Q6 PO Last administered on 11:47; Admin Dose 250 MG; Start 03/17/16 at 18:00 Verapamil HCl (Verapamil) 5 mg Q6H PRN IV ELEVATED HEART RATE Last administered on 03/17/16 23:45; Admin Dose 5 MG; Start 03/17/16 at 23:30 Zolpidem Tartrate (Ambien) 5 mg HS PRN PO INSOMNIA Last administered on 23:56; Admin Dose 5 MG; Start 03/17/16 at 23:30 Metoprolol Tartrate (Lopressor) 5 mg Q4H PRN IV ELEVATED HEART RATE Last administered on 03/18/16 01:41; Admin Dose 5 MG; Start 03/18/16 at 01:30 Acetaminophen 650 mg 650 mg Q6H PRN PO PAIN AND OR ELEVATED TEMP Last administered on 03/19/16 01:18; Admin Dose 650 MG; Start 03/18/16 at 23:30 Meropenem 100 ml @ 200 mls/hr Q12 IVPB Last administered on 03/19/16 10:02; Admin Dose 200 MLS/HR; Start 03/19/16 at 09:00 Fluconazole/ Sodium Chloride 50 ml @ 50 mls/hr Q24H IVPB Last administered on 08:53; Admin Dose 50 MLS/HR; Start 03/19/16 at 08:30 Vancomycin HCl 750 mg/Sodium Chloride 150 ml @ 75 mls/hr Q12H IVPB ; Start 03/20 at 00:00 Potassium Chloride/Dextrose/ Sodium Chloride (KCl/D5-NS) 1,005 ml @ 50 mls/hr Q20H6M IV ; Start 03/19/16 at 17:00; Status CHARISSA COLON MD Mar 19, 2016 17:02
[2016-03-19] MEDS ORDERED: PROPOFOL 100 ML ONE (17:04)
--- NOTE | 2016-03-19 17:21 | RADRPT ---
PROCEDURE: Ultrasound four quadrants CLINICAL INDICATION: Ascites on recent CT scan. Evaluate for paracentesis. TECHNIQUE: Sonographic evaluation of the four quadrants of the abdomen was performed. Omer-scale imaging was utilized. Images were reviewed on a high-resolution PACS workstation. COMPARISON: CT dated 03/16/2016 FINDINGS: Small ascites is seen. No fluid pocket was identified that is large enough to be safely drained. IMPRESSION: 1. Small ascites was identified. No drainable fluid collection was present. Paracentesis was not performed. RPTAT: QQ .Jamar Wheatley MD, Date Time Electronically viewed and signed by .Jamar Wheatley MD, on 03/18/2016 12:46 .M/
[2016-03-19 17:22] LABS: AADO2 Arterial 346.3 mmHg (7.0-24.0); Allen Test ACCEPTAB; Arterial Base Excess -4.7 mmol/L (-3.0-3); Arterial COHb 0.2 % (0.0-3.0); Arterial Fraction of Oxyhgb 98.6 % (93.0-99.0); Arterial HCO3 20.5 mmol/L (22.0-26.0); Arterial MetHb 0.4 % (0.0-1.5); Arterial Total Hemglobin 9.5 g/dl (12.0-18.0); MODE VENT - AC
[2016-03-19 17:31] LABS: HEMATOCRIT 27.4 % (37.0-47.0); HEMOGLOBIN 8.9 g/dl (12.0-16.0); MEAN CORPUSCULAR HEMOGLOBIN 30.6 pg (29.0-33.0); MEAN CORPUSCULAR HGB CONC 32.3 g/dl (32.0-37.0); MEAN CORPUSCULAR VOLUME 94.9 fl (82.0-101.0); MEAN PLATELET VOLUME 9.9 fl (7.4-10.4); PLATELET COUNT 215 10^3/UL (140-440); RED BLOOD COUNT 2.89 10^6/ul (4.20-5.40); RED CELL DISTRIBUTION WIDTH 18.2 % (11.5-14.5); UNCORRECTED WBC 25.6 10^3/ul (4.8-10.8); WHITE BLOOD COUNT 25.6 10^3/ul (4.8-10.8)
[2016-03-19 17:32] LABS: CONDITION 1; SUSPECT 1
[2016-03-19 17:33] LABS: LH ANALYZER COMMENTS 1
--- NOTE | 2016-03-19 17:34 | RADRPT ---
PROCEDURE: XR, Chest. CLINICAL INDICATION: Follow up for respiratory distress. TECHNIQUE: AP chest. COMPARISON: Chest, 03/18/2016. FINDINGS: There is mild to moderate right pleural effusion with partial compressive atelectasis of right lower lobe. There is trace left pleural effusion. There is no acute infiltrate in the lungs. The heart is not enlarged. There is mild calcified atherosclerosis of the aortic arch. The ET tube and NG tube remain in good position. IMPRESSION: 1. Mild to moderate right pleural effusion with partial compressive atelectasis of the right lower lobe. Interval worsening of right pleural effusion. 2. Trace left pleural effusion. 3. NG tube in place. RPTAT: GG .Samir Cook MD, MD Date Time Electronically viewed and signed by .Samir Cook MD, on 03/19/2016 17:34 .Y/
[2016-03-19 17:45] LABS: ALBUMIN/GLOBULIN RATIO 0.86; CREATININE 1.37 mg/dl (0.44-1.00); TOTAL PROTEIN 4.3 g/dl (6.1-8.1)
--- NOTE | 2016-03-19 17:48 | PN ---
DATE: 03/19/2016 SUBJECTIVE: Patient spiked fever of 101.3 this morning. Cultures done. WBC today 27.6 with platelets 224, neutrophils 84, bands 10, lymphs 6, BUN 42, creatinine 1.40. MICROBIOLOGY: The patient had cultures that are pending. She had a thoracentesis yesterday and pleural fluid cultures are pending. Pleural cytology revealed a white blood cell count of 43. Glucose 108. LDH 464. INDWELLINGS: Francois, right IJ triple-lumen catheter. ANTIMICROBIALS: The patient was started by vancomycin, Merrem and Diflucan. This morning she is also on oral Flagyl, Dificid and oral vancomycin. PHYSICAL EXAMINATION: GENERAL: This is a fragile, chronically ill-appearing, elderly woman who is awake, very weak and in no distress. HEENT: Head atraumatic, normocephalic. Sclerae anicteric. Buccal mucosa dry. NECK: Supple, trachea midline. CHEST: Rise symmetrical. Breath sounds diminished to bases. HEART: S1, S2. ABDOMEN: Soft, bowel tones present. EXTREMITIES: With bilateral edema, left lower extremity with edema and small wound on the lateral part of her foot with some purulent drainage, also extremities very edematous. ASSESSMENT: 1. Sepsis with fevers and leukocytosis ?aspiration event. 2. Possible healthcare-associated pneumonia, rule out aspiration. 3. Left lower extremity cellulitis. 4. Severe pancolitis. 5. Bilateral pleural effusion, status post thoracentesis yesterday. 6. History of pneumothorax secondary to rib fracture requiring video-assisted thoracoscopic surgery with chest tube placement. 7. Status post cervical spine injury. 8. Status post Ann glabrata urinary tract infection. PLAN: The patient is clinically stable. We started her on broad-spectrum antibiotic this morning. We will order culture of her left foot wound drainage. We will order to discontinue right IJ triple lumen catheter after placement of peripheral IV and send tip for culture. We will continue her on current antimicrobials. Keep left lower extremity elevated on 3 pillows and await for final cultures. Above was discussed with family and RN. Dictated By: PHOEBE BANDA [employer] MAINTAINER for JUAN THOMAS/JOSUÉ Conf#: [id number] DID#: [id number] [facility]
[2016-03-19 17:57] LABS: POTASSIUM 2.6 mmol/L (3.5-5.1)
[2016-03-19] MEDS: POTASSIUM CHLORIDE 10 MEQ in DEXTROSE 5% 1,000 ML IV SCH (18:03)
[2016-03-19 18:22] LABS: HYPOCHROMASIA 1+; LYMPHOCYTES # 0.5 10^3/ul (0.8-2.9); MONOCYTE # 0.5 10^3/ul (0.3-0.9); NEUTROPHIL # 23.6 10^3/ul (1.6-7.5)
--- NOTE | 2016-03-19 19:12 | RADRPT ---
Vent Rate: 115 bpm RR Interval: 0 msec DE Interval: 0 msec QRS Duration: 70 msec QT Interval: 454 msec QTC Interval: 628 msec P-R-T [place]: 0 - 69 - 67 degrees Sinus Rhythm Nonspecific ST and T wave abnormality Abnormal ECG Electronically Signed By: Leno Guallpa [id number]
[2016-03-19] MEDS ORDERED: ACETYLCYSTEINE 600 MG CAP NGT SCH ×2 (22:30→23:00)
--- NOTE | 2016-03-19 23:05 | PN ---
Date/Time of Note Date/Time of Note DATE: 03/19/16 TIME: 23:00 Assessment/Plan VTE Prophylaxis VTE Prophylaxis Intervention: other Lines/Catheters IV Catheter Type (from Nrs): Saline Lock Urinary Cath still in place: Yes Reason Cath still needed: other (indicate) Assessment/Plan Chief Complaint/Hosp Course 1. Left video-assisted thoracic surgery, total pulmonary decortication. 2.s/p Control of chest bleeding. 3. sepsis recurrent 4 s/p fall outside HOSPITAL 5 lung infilterate better 6 hypernatremia better 7 djd 8 ddd 9 hx htn 10 positive gold test 11 UTI 12HYPOTHYROIDISM 13 collites better 14 markos BETTER 15 atn better 16 pancolites 17 metabolic acidosis better 18 edema 19 s/p pneumothorax and chest tube 20 doubt pe plan labs antibiotic pain meds per pulmonary albumin prn iv v/q scan lovenox ck labs Problems: Subjective 24 Hr Interval Summary Subjective hx not possible: pt non-verbal, other (s/p code blue now intubated,s /p removal of central line by rn and and code blue was called) Exam/Review of Systems Vital Signs Vitals Vital Signs Date Time Temp Pulse Resp B/P Pulse Ox O2 Delivery O2 Flow Rate FiO2 03/19/16 22:00 80 13 107/48 100 03/19/16 21:20 50 03/19/16 20:00 97.5 Mechanical Ventilator 03/19/16 16:05 2.0 Intake and Output 03/18/16 03/18/16 03/19/16 15:00 23:00 07:00 Intake Total 600 ml 610 ml Output Total 1200 ml 2000 ml Balance -600 ml -1390 ml Exam Head: normocephalic Neck: supple Respiratory: clear to auscultation Cardiovascular: regular rate and rhythm Gastrointestinal: ascites (+), bowel sounds (+), soft Extremities: edema (++) Neurological: unresponsive Results Result Diagram: 03/19/16 1715 03/19/16 1715 Results 24 hrs Laboratory Tests Test 03/19/16 11:20 03/19/16 15:19 03/19/16 16:27 03/19/16 17:06 Alanine Aminotransferase (ALT/SGPT) 30 Albumin 2.2 L Albumin/Globulin Ratio 0.88 Alkaline Phosphatase 114 Anion Gap 15 Aspartate Amino Transf (AST/SGOT) 24 Band Neutrophils % 10.0 H Blood Morphology Comment Blood Urea Nitrogen 42 H Calcium Level 7.6 L Carbon Dioxide Level 24 Chloride Level 114 H Creatinine 1.40 H Direct Bilirubin 0.00 Globulin 2.50 Glucose Level 132 Hematocrit 31.5 L Hemoglobin 10.2 L Indirect Bilirubin 0.1 Lymphocytes # 1.7 Lymphocytes % 6.0 L Mean Corpuscular Hemoglobin 31.0 Mean Corpuscular Hemoglobin Concent 32.5 Mean Corpuscular Volume 95.5 Mean Platelet Volume 10.4 Neutrophils # 23.2 H Neutrophils % 84.0 H Platelet Count 224 Potassium Level 2.7 *L Red Blood Count 3.29 L Red Cell Distribution Width 18.5 H Sodium Level 150 H Total Bilirubin 0.1 L Total Protein 4.7 #L White Blood Count 27.6 #H Bedside Glucose 139 Troponin I 0.765 *H Arterial Blood HCO3 20.5 L Arterial Blood Base Excess -4.7 L Arterial Blood Oxygen Saturation 99.2 Kaiden Test ACCEPTAB Arterial Blood Gas Puncture Site Right Radial Arterial Blood Carboxyhemoglobin 0.2 Arterial Blood Date Drawn 03/19/2016 5:14:14 PM Arterial Blood Methemoglobin 0.4 Arterial Blood pCO2 (Temp correct) 38.1 Arterial Blood pH (Temp corrected) 7.349 L Arterial Blood pO2 (Temp corrected) 328.6 H Blood Gas A-a O2 Differential 346.3 H Blood Gas Actual Respiration Rate 14 Blood Gas Modality VENT - AC Blood Gas Notified Time 03/19/2016 5:22:11 PM Blood Gas Notified Whom ab Blood Gas Respiration Rate 14.0 Blood Gas Specimen Source Blood arterial Blood Gas Temperature 37.0 Blood Gas Tidal Volume 500.0 FiO2 100.0 Oxyhemoglobin Percent 98.6 Total Hemoglobin 9.5 L Test 03/19/16 17:15 Alanine Aminotransferase (ALT/SGPT) 30 Albumin 2.0 L Albumin/Globulin Ratio 0.86 Alkaline Phosphatase 108 Anion Gap 14 Aspartate Amino Transf (AST/SGOT) 19 Band Neutrophils % 4.0 Blood Morphology Comment Blood Urea Nitrogen 40 H Calcium Level 7.0 L Carbon Dioxide Level 23 Chloride Level 116 H Creatinine 1.37 H Direct Bilirubin 0.00 Globulin 2.30 Glucose Level 146 Hematocrit 27.4 L Hemoglobin 8.9 L Hypochromasia 1+ Indirect Bilirubin 0.0 Lymphocytes # 0.5 L Lymphocytes % 2.0 L Macrocytosis 1+ Mean Corpuscular Hemoglobin 30.6 Mean Corpuscular Hemoglobin Concent 32.3 Mean Corpuscular Volume 94.9 Mean Platelet Volume 9.9 Monocytes # 0.5 Monocytes % 2.0 Neutrophils # 23.6 H Neutrophils % 92.0 H Platelet Count 215 Potassium Level 2.6 *L Red Blood Count 2.89 L Red Cell Distribution Width 18.2 H Sodium Level 150 H Total Bilirubin 0.0 L Total Protein 4.3 L White Blood Count 25.6 H Medications Medications Current Medications Lorazepam (Ativan) 0.5 mg Q6H PRN IV ANXIETY Last administered on 03/17/16 18: 50; Admin Dose 0.5 MG; Start 02/24/16 at 02:00 Ondansetron HCl (Zofran Inj) 4 mg Q6H PRN IV NAUSEA AND/OR VOMITING Last administered on 03/01/16 13:17; Admin Dose 4 MG; Start 02/24/16 at 02:00 Nitroglycerin (Nitroglycerin (Sl Tab) 0.4 Mg) 1 tab Q5M PRN SL CHEST PAIN; Start 02/24/16 at 02:00 Hydralazine HCl (Apresoline) 10 mg Q6H PRN IV SBP > 160 Last administered on 04:35; Admin Dose 10 MG; Start 02/24/16 at 02:00 Labetalol HCl (Labetalol) 10 mg Q6 PRN IV ELEVATED BLOOD PRESSURE; Start at 23:00 Guaifenesin/ Dextromethorphan (Robitussin Dm Liquid Cup) 5 ml Q6 PRN PO COUGH Last administered on 02/27/16 18:12; Admin Dose 5 ML; Start 02/24/16 at 23:00 Nicotine (Nicoderm 21 Mg/ 24hr) 1 patch DAILY TRANSDERM Last administered on 08:45; Admin Dose 1 PATCH; Start 02/26/16 at 09:00 Levothyroxine Sodium (Synthroid) 25 mcg DAILY@06 PO Last administered on 06:21; Admin Dose 25 MCG; Start 02/28/16 at 06:00 Hydromorphone HCl (Dilaudid) 0.5 mg Q3 PRN IV PAIN Last administered on 13:15; Admin Dose 0.5 MG; Start 03/02/16 at 17:00 Heparin Sodium (Porcine) (Heparin (5000 Units/0.5 ml)) 5,000 unit BID SC Last administered on 03/19/16 21:54; Admin Dose 5,000 UNIT; Start 03/02/16 at 21:30 Fidaxomicin (Dificid) 200 mg BID PO Last administered on 03/19/16 21:42; Admin Dose 200 MG; Start 03/07/16 at 21:00 Potassium Chloride (Potassium Chloride Pwd/Soln) 20 meq BID PO Last administered on 03/19/16 21:42; Admin Dose 20 MEQ; Start 03/08/16 at 12:30 Dicyclomine HCl (Bentyl) 10 mg BID PO Last administered on 03/19/16 21:42; Admin Dose 10 MG; Start 03/15/16 at 21:00 Metronidazole (Flagyl) 500 mg Q8 PO Last administered on 03/19/16 21:42; Admin Dose 500 MG; Start 03/16/16 at 22:00 Vancomycin HCl (Vancomycin Oral Syringe) 250 mg Q6 PO Last administered on 18:03; Admin Dose 250 MG; Start 03/17/16 at 18:00 Verapamil HCl (Verapamil) 5 mg Q6H PRN IV ELEVATED HEART RATE Last administered on 03/17/16 23:45; Admin Dose 5 MG; Start 03/17/16 at 23:30 Zolpidem Tartrate (Ambien) 5 mg HS PRN PO INSOMNIA Last administered on 23:56; Admin Dose 5 MG; Start 03/17/16 at 23:30 Metoprolol Tartrate (Lopressor) 5 mg Q4H PRN IV ELEVATED HEART RATE Last administered on 03/18/16 01:41; Admin Dose 5 MG; Start 03/18/16 at 01:30 Acetaminophen 650 mg 650 mg Q6H PRN PO PAIN AND OR ELEVATED TEMP Last administered on 03/19/16 01:18; Admin Dose 650 MG; Start 03/18/16 at 23:30 Meropenem 100 ml @ 200 mls/hr Q12 IVPB Last administered on 03/19/16 21:42; Admin Dose 200 MLS/HR; Start 03/19/16 at 09:00 Fluconazole/ Sodium Chloride 50 ml @ 50 mls/hr Q24H IVPB Last administered on 08:53; Admin Dose 50 MLS/HR; Start 03/19/16 at 08:30 Vancomycin HCl 750 mg/Sodium Chloride 150 ml @ 75 mls/hr Q12H IVPB ; Start 03/20 at 00:00 Potassium Chloride/Dextrose/ Sodium Chloride (KCl/D5-NS) 1,005 ml @ 50 mls/hr Q20H6M IV Last administered on 03/19/16 17:00; Admin Dose 50 MLS/HR; Start 03/19 at 17:00 Acetylcysteine (Nac) 1,200 mg BID NGT ; Start 03/19/16 at 23:00; Stop 03/19/16 at 23:01 REMINGTON ZELAYA MD Mar 19, 2016 23:05
[2016-03-20] VITALS (65 sets, daily range): BP systolic 85–141; BP diastolic 37–65; PULSE 60–83; RESP 14–28
[2016-03-20] MEDS ORDERED: PROPOFOL 100 ML ONE (00:58)
[2016-03-20] MEDS: PROPOFOL 100 ML IV SCH ×3 (00:59→21:22)
[2016-03-20] MEDS: VANCOMYCIN HCL 250 MG/5ML POSYG PO SCH ×4 (01:15→18:39)
[2016-03-20 05:37] LABS: ALBUMIN 1.9 g/dl (3.3-4.9)
[2016-03-20 05:38] LABS: HEMATOCRIT 26.6 % (37.0-47.0); HEMOGLOBIN 8.9 g/dl (12.0-16.0); MEAN CORPUSCULAR HEMOGLOBIN 31.7 pg (29.0-33.0); MEAN CORPUSCULAR HGB CONC 33.3 g/dl (32.0-37.0); MEAN CORPUSCULAR VOLUME 95.1 fl (82.0-101.0); MEAN PLATELET VOLUME 10.9 fl (7.4-10.4); PLATELET COUNT 218 10^3/UL (140-440); RED CELL DISTRIBUTION WIDTH 18.1 % (11.5-14.5); UNCORRECTED WBC 25.8 10^3/ul (4.8-10.8); WHITE BLOOD COUNT 25.8 10^3/ul (4.8-10.8)
[2016-03-20 05:39] LABS: CREATININE 1.21 mg/dl (0.44-1.00)
[2016-03-20 05:40] LABS: ALBUMIN/GLOBULIN RATIO 0.82; POTASSIUM 2.8 mmol/L (3.5-5.1); TOTAL PROTEIN 4.2 g/dl (6.1-8.1)
[2016-03-20 05:41] LABS: CALCIUM 7.3 mg/dl (8.4-10.2)
[2016-03-20] MEDS: metroNIDAZOLE 500 MG TAB PO SCH ×3 (05:51→22:53)
[2016-03-20] MEDS: LEVOTHYROXINE 25 MCG TAB PO SCH ×2 (05:51→10:07)
[2016-03-20 06:17] LABS: CONDITION 1; LH ANALYZER COMMENTS 1; SUSPECT 1
[2016-03-20] MEDS ORDERED: POTASSIUM CHLORIDE 250 ML IVPB ONE (06:30)
[2016-03-20] MEDS ORDERED: VANCOMYCIN 750 MG in SOD CHLORIDE 0.9% 150 ML IVPB SCH ×3 (09:00)
[2016-03-20] MEDS ORDERED: ENOXAPARIN 40 MG/0.4 ML SYG SC SCH ×2 (09:00)
[2016-03-20] MEDS ORDERED: FUROSEMIDE 40 MG INJ IV SCH (09:00)
[2016-03-20 09:07] LABS: Arterial Base Excess -13.2 mmol/L (-3.0-3); Arterial COHb 0.3 % (0.0-3.0); Arterial Fraction of Oxyhgb 66.7 % (93.0-99.0); Arterial HCO3 16.3 mmol/L (22.0-26.0); Arterial MetHb 0.3 % (0.0-1.5); Arterial Total Hemglobin 10.3 g/dl (12.0-18.0); MODE MASK - NRB
--- NOTE | 2016-03-20 09:20 | CONS ---
Date/Time of Note Date/Time of Note DATE: 03/20/16 TIME: 09:00 Assessment/Plan Assessment/Plan Additional Assessment/Plan A/R: 1- recurrent respiratory failure 2- severe colitis 3. leukocytosis 4 history of pntx 5- hypothyroidism 6- sepsis 7- s/p right thoracentsis. continue current treatment. CXR from today showing mild RLL atelectasis. If patient fails to handle tube feedings, will need TPN. Consultation Date/Type/Reason Admit Date/Time Feb 24, 2016 at 04:06 Type of Consultation: Pulm 24 HR Interval Summary Free Text/Dictation Patient condition remains tenuous at best. Still requiring full ventilator support. She currently sedated, orally intubated. General examination; elderly lady, orally intubated, sedated currently in no distress. Exam/Review of Systems Vital Signs Vitals Vital Signs Date Time Temp Pulse Resp B/P Pulse Ox O2 Delivery O2 Flow Rate FiO2 03/20/16 07:00 64 15 111/48 100 03/20/16 05:34 40 03/20/16 04:00 98.1 Mechanical Ventilator 03/19/16 16:05 2.0 Intake and Output 03/19/16 03/19/16 03/20/16 15:00 23:00 07:00 Intake Total 1051.3 ml 813.8 ml Output Total 885 ml 320 ml Balance 166.3 ml 493.8 ml Exam Ventilator settings; assist control of 16, tidal volume 500, PEEP of 5, 40% FiO2. HEENT: supple neck, no JVD, orally intubated,multiple carious teeth. CHEST: diminished but CTA. S1 S2 audible, no murmurs. RRR. Abdomen: distended, tender, BS absent. EXTREMITIES: decreased LE Edema. 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 Results Result Diagram: 03/20/16 0445 03/20/16 0445 Results 24 hrs Laboratory Tests Test 03/19/16 11:20 03/19/16 15:19 03/19/16 16:27 03/19/16 17:06 Alanine Aminotransferase (ALT/SGPT) 30 Albumin 2.2 L Albumin/Globulin Ratio 0.88 Alkaline Phosphatase 114 Anion Gap 15 Aspartate Amino Transf (AST/SGOT) 24 Band Neutrophils % 10.0 H Blood Morphology Comment Blood Urea Nitrogen 42 H Calcium Level 7.6 L Carbon Dioxide Level 24 Chloride Level 114 H Creatinine 1.40 H Direct Bilirubin 0.00 Globulin 2.50 Glucose Level 132 Hematocrit 31.5 L Hemoglobin 10.2 L Indirect Bilirubin 0.1 Lymphocytes # 1.7 Lymphocytes % 6.0 L Mean Corpuscular Hemoglobin 31.0 Mean Corpuscular Hemoglobin Concent 32.5 Mean Corpuscular Volume 95.5 Mean Platelet Volume 10.4 Neutrophils # 23.2 H Neutrophils % 84.0 H Platelet Count 224 Potassium Level 2.7 *L Red Blood Count 3.29 L Red Cell Distribution Width 18.5 H Sodium Level 150 H Total Bilirubin 0.1 L Total Protein 4.7 #L White Blood Count 27.6 #H Bedside Glucose 139 Troponin I 0.765 *H Arterial Blood HCO3 20.5 L Arterial Blood Base Excess -4.7 L Arterial Blood Oxygen Saturation 99.2 Kaiden Test ACCEPTAB Arterial Blood Gas Puncture Site Right Radial Arterial Blood Carboxyhemoglobin 0.2 Arterial Blood Date Drawn 03/19/2016 5:14:14 PM Arterial Blood Methemoglobin 0.4 Arterial Blood pCO2 (Temp correct) 38.1 Arterial Blood pH (Temp corrected) 7.349 L Arterial Blood pO2 (Temp corrected) 328.6 H Blood Gas A-a O2 Differential 346.3 H Blood Gas Actual Respiration Rate 14 Blood Gas Modality VENT - AC Blood Gas Notified Time 03/19/2016 5:22:11 PM Blood Gas Notified Whom ab Blood Gas Respiration Rate 14.0 Blood Gas Specimen Source Blood arterial Blood Gas Temperature 37.0 Blood Gas Tidal Volume 500.0 FiO2 100.0 Oxyhemoglobin Percent 98.6 Total Hemoglobin 9.5 L Test 03/19/16 17:15 03/19/16 22:35 03/20/16 04:45 Alanine Aminotransferase (ALT/SGPT) 30 29 Albumin 2.0 L 1.9 L Albumin/Globulin Ratio 0.86 0.82 Alkaline Phosphatase 108 100 Anion Gap 14 14 Aspartate Amino Transf (AST/SGOT) 19 20 Band Neutrophils % 4.0 Blood Morphology Comment Blood Urea Nitrogen 40 H 41 H Calcium Level 7.0 L 7.3 L Carbon Dioxide Level 23 20 L Chloride Level 116 H 117 H Creatinine 1.37 H 1.21 H Direct Bilirubin 0.00 0.00 Globulin 2.30 2.30 Glucose Level 146 106 # Hematocrit 27.4 L 26.6 L Hemoglobin 8.9 L 8.9 L Hypochromasia 1+ Indirect Bilirubin 0.0 0.0 Lymphocytes # 0.5 L Pending Lymphocytes % 2.0 L Pending Macrocytosis 1+ Mean Corpuscular Hemoglobin 30.6 31.7 Mean Corpuscular Hemoglobin Concent 32.3 33.3 Mean Corpuscular Volume 94.9 95.1 Mean Platelet Volume 9.9 10.9 H Monocytes # 0.5 Pending Monocytes % 2.0 Pending Neutrophils # 23.6 H Pending Neutrophils % 92.0 H Pending Platelet Count 215 218 Potassium Level 2.6 *L 2.8 *L Red Blood Count 2.89 L 2.80 L Red Cell Distribution Width 18.2 H 18.1 H Sodium Level 150 H 148 H Total Bilirubin 0.0 L 0.0 L Total Protein 4.3 L 4.2 L White Blood Count 25.6 H 25.8 H Troponin I 0.694 *H 0.445 *H Basophils # Pending Basophils % Pending Eosinophils # Pending Eosinophils % Pending Nucleated Red Blood Cells # Pending Nucleated Red Blood Cells % Pending Medications Medications Current Medications Lorazepam (Ativan) 0.5 mg Q6H PRN IV ANXIETY Last administered on 03/17/16 18: 50; Admin Dose 0.5 MG; Start 02/24/16 at 02:00 Ondansetron HCl (Zofran Inj) 4 mg Q6H PRN IV NAUSEA AND/OR VOMITING Last administered on 03/01/16 13:17; Admin Dose 4 MG; Start 02/24/16 at 02:00 Nitroglycerin (Nitroglycerin (Sl Tab) 0.4 Mg) 1 tab Q5M PRN SL CHEST PAIN; Start 02/24/16 at 02:00 Hydralazine HCl (Apresoline) 10 mg Q6H PRN IV SBP > 160 Last administered on 04:35; Admin Dose 10 MG; Start 02/24/16 at 02:00 Labetalol HCl (Labetalol) 10 mg Q6 PRN IV ELEVATED BLOOD PRESSURE; Start at 23:00 Guaifenesin/ Dextromethorphan (Robitussin Dm Liquid Cup) 5 ml Q6 PRN PO COUGH Last administered on 02/27/16 18:12; Admin Dose 5 ML; Start 02/24/16 at 23:00 Nicotine (Nicoderm 21 Mg/ 24hr) 1 patch DAILY TRANSDERM Last administered on 08:45; Admin Dose 1 PATCH; Start 02/26/16 at 09:00 Levothyroxine Sodium (Synthroid) 25 mcg DAILY@06 PO Last administered on 05:51; Admin Dose 25 MCG; Start 02/28/16 at 06:00 Hydromorphone HCl (Dilaudid) 0.5 mg Q3 PRN IV PAIN Last administered on 13:15; Admin Dose 0.5 MG; Start 03/02/16 at 17:00 Heparin Sodium (Porcine) (Heparin (5000 Units/0.5 ml)) 5,000 unit BID SC Last administered on 03/19/16 21:54; Admin Dose 5,000 UNIT; Start 03/02/16 at 21:30 Fidaxomicin (Dificid) 200 mg BID PO Last administered on 03/19/16 21:42; Admin Dose 200 MG; Start 03/07/16 at 21:00 Potassium Chloride (Potassium Chloride Pwd/Soln) 20 meq BID PO Last administered on 03/19/16 21:42; Admin Dose 20 MEQ; Start 03/08/16 at 12:30 Dicyclomine HCl (Bentyl) 10 mg BID PO Last administered on 03/19/16 21:42; Admin Dose 10 MG; Start 03/15/16 at 21:00 Metronidazole (Flagyl) 500 mg Q8 PO Last administered on 03/20/16 05:51; Admin Dose 500 MG; Start 03/16/16 at 22:00 Vancomycin HCl (Vancomycin Oral Syringe) 250 mg Q6 PO Last administered on 05:51; Admin Dose 250 MG; Start 03/17/16 at 18:00 Verapamil HCl (Verapamil) 5 mg Q6H PRN IV ELEVATED HEART RATE Last administered on 03/17/16 23:45; Admin Dose 5 MG; Start 03/17/16 at 23:30 Zolpidem Tartrate (Ambien) 5 mg HS PRN PO INSOMNIA Last administered on 23:56; Admin Dose 5 MG; Start 03/17/16 at 23:30 Metoprolol Tartrate (Lopressor) 5 mg Q4H PRN IV ELEVATED HEART RATE Last administered on 03/18/16 01:41; Admin Dose 5 MG; Start 03/18/16 at 01:30 Acetaminophen 650 mg 650 mg Q6H PRN PO PAIN AND OR ELEVATED TEMP Last administered on 03/19/16 01:18; Admin Dose 650 MG; Start 03/18/16 at 23:30 Meropenem 100 ml @ 200 mls/hr Q12 IVPB Last administered on 03/19/16 21:42; Admin Dose 200 MLS/HR; Start 03/19/16 at 09:00 Fluconazole/ Sodium Chloride 50 ml @ 50 mls/hr Q24H IVPB Last administered on 08:53; Admin Dose 50 MLS/HR; Start 03/19/16 at 08:30 Vancomycin HCl 750 mg/Sodium Chloride 150 ml @ 75 mls/hr Q12H IVPB Last administered on 03/20/16 01:16; Admin Dose 75 MLS/HR; Start 03/20/16 at 00:00 Potassium Chloride/Dextrose/ Sodium Chloride (KCl/D5-NS) 1,005 ml @ 50 mls/hr Q20H6M IV Last administered on 03/19/16 17:00; Admin Dose 50 MLS/HR; Start 03/19 at 17:00 Enoxaparin Sodium 40 mg 40 mg DAILY SC ; Start 03/20/16 at 09:00 Propofol 100 ml @ 1.692 mls/ hr Q12H IV Last administered on 03/20/16 00:59; Admin Dose 10.795 MLS/HR; Start 03/20/16 at 01:00 Potassium Chloride (KCl 40 MEQ/250 ML NS) 250 ml @ 62.5 mls/hr ONCE ONCE IVPB Last administered on 03/20/16 07:01; Admin Dose 62.5 MLS/HR; Start 03/20/16 at 06:30; Stop 03/20/16 at 10:29 GAIL SPENCER Mar 20, 2016 09:17
--- NOTE | 2016-03-20 09:29 | RADRPT ---
PROCEDURE: XR Left Ankle. CLINICAL INDICATION: Cellulitis. Wound. TECHNIQUE: Three views of the left ankle were performed. COMPARISON: None. FINDINGS: There is marked soft tissue swelling present, especially laterally. No bone destructive changes are seen. No evidence for fracture, subluxation or dislocation. There is quadriceps insertional enthes opathy. IMPRESSION: 1. Marked soft tissue swelling, especially laterally. 2. No bone destructive change is identified. 3. No evidence for fracture. RPTAT: XX .Jakob De Los Santos MD, MD Date Time Electronically viewed and signed by .Jakob De Los Santos MD, MD on 03/20/2016 09:29 .T/
[2016-03-20 09:36] LABS: LYMPHOCYTES # 1.3 10^3/ul (0.8-2.9); NEUTROPHIL # 22.4 10^3/ul (1.6-7.5)
[2016-03-20 09:45] LABS: AADO2 Arterial 145.3 mmHg (7.0-24.0); Allen Test ACCEPTAB; Arterial Base Excess -4.7 mmol/L (-3.0-3); Arterial COHb 0.3 % (0.0-3.0); Arterial Fraction of Oxyhgb 96.6 % (93.0-99.0); Arterial HCO3 18.7 mmol/L (22.0-26.0); Arterial MetHb 0.3 % (0.0-1.5); Arterial Total Hemglobin 9.5 g/dl (12.0-18.0); MODE VENT - AC
[2016-03-20] MEDS: HEPARIN 5,000 UNIT/0.5 ML SYG SC SCH ×2 (10:05→21:29)
[2016-03-20] MEDS: FIDAXOMICIN 200 MG TABLET PO SCH ×2 (10:07→21:19)
[2016-03-20] MEDS: DICYCLOMINE 10 MG CAP PO SCH ×2 (10:07→21:19)
[2016-03-20] MEDS: POTASSIUM CHLORIDE 20 MEQ POWDER FOR ORAL SOLN PO SCH (10:08)
[2016-03-20] MEDS: NICOTINE (21 MG/24 HR) PATCH TRANSDERM SCH (10:08)
[2016-03-20] MEDS: MEROPENEM 500 MG/100 ML (PMX) 100 ML IVPB SCH ×2 (10:09→21:19)
[2016-03-20] MEDS: FLUCONAZOLE 100 MG/NS (PMX) 50 ML IVPB SCH (10:09)
[2016-03-20] MEDS: POTASSIUM CHLORIDE 10 MEQ in DEXTROSE 5%-0.9% NACL 1,000 ML IV SCH (10:10)
--- NOTE | 2016-03-20 10:59 | RADRPT ---
Echocardiogram Report Patient Name: RENETTA BOB Gender: Female Date: 1935 Study Date: 20-Mar-2016 Call Center Representative: Aureliano Enrique DEVI Location: 117 Ref. Physician: LENO GONZÁLES Quality: Technically Difficult Study Procedures: Transthoracic echocardiogram with complete 2D, M-Mode, and doppler examination. Indications: Cardiac Arrest. 2D/M Mode Doppler Measurement Value Normal Ranges Measurement Value Normal Ranges LVIDd 2D 4.4 3.5 - 5.6 cm AV Peak Ronni 1.0 m/sec LVIDs 2D 3.2 2.1 - 4.1 cm AV Peak PG 4.0 mmHg LVPWd 2D 0.7 0.6 - 1.1 cm LVOT Peak Ronni 0.7 m/sec IVSd 2D 0.6 0.6 - 1.1 cm LVOT Peak PG 2.2 mmHg AoR Diam 2D 2.2 2.0 - 3.7 cm MV E Peak Ronni 0.6 m/sec EDV 2D 86.2 cm3 MV A Peak Ronni 0.8 m/sec ESV 2D 32.8 cm3 MV E/A 0.8 LA Dimen 2D 2.8 2.3 - 4.0 cm MV Decel Time 211 msec MV Decel [place] 3 MV E/A 0.8 Findings Left Ventricle: Normal left ventricular cavity size. Normal left ventricular wall thickness. Moderate left ventricular systolic dysfunction. Ejection fraction is visually estimated at 35 %. Multiple segmental wall motion abnormalities. Right Ventricle: Normal right ventricular size. Left Atrium: The left atrium is normal in size. Right Atrium: The right atrium is normal in size. Mitral Valve: Normal appearance and function of the mitral valve with trace physiologic regurgitation. Aortic Valve: Aortic cusps appear mildly calcified. Mild aortic valve regurgitation. Tricuspid Valve: Normal appearance and function of the tricuspid valve with trace physiologic regurgitation. Pericardium: Normal pericardium with no significant pericardial effusion. Aorta: Normal aortic root. IVC: Normal size and normal respiratory collapse consistent with normal right atrial pressure. Conclusions Normal left ventricular cavity size. Normal left ventricular wall thickness. Moderate left ventricular systolic dysfunction. Ejection fraction is visually estimated at 35 %. Multiple segmental wall motion abnormalities. Normal appearance and function of the mitral valve with trace physiologic regurgitation. Aortic cusps appear mildly calcified. Mild aortic valve regurgitation. Normal appearance and function of the tricuspid valve with trace physiologic regurgitation. Normal pericardium with no significant pericardial effusion. Electronically Signed By: Leno Gonzáles 20-Mar-2016 10:58:43 -0800 Patient Name: RENETTA BOB Study Date: 20-Mar-2016 [id number]
[2016-03-20 11:49] LABS: HEMATOCRIT 27.6 % (37.0-47.0); HEMOGLOBIN 9.1 g/dl (12.0-16.0); MEAN CORPUSCULAR HEMOGLOBIN 31.1 pg (29.0-33.0); MEAN CORPUSCULAR HGB CONC 32.9 g/dl (32.0-37.0); MEAN CORPUSCULAR VOLUME 94.7 fl (82.0-101.0); MEAN PLATELET VOLUME 10.8 fl (7.4-10.4); PLATELET COUNT 205 10^3/UL (140-440); RED BLOOD COUNT 2.92 10^6/ul (4.20-5.40); RED CELL DISTRIBUTION WIDTH 18.3 % (11.5-14.5); UNCORRECTED WBC 25.2 10^3/ul (4.8-10.8); WHITE BLOOD COUNT 25.2 10^3/ul (4.8-10.8)
[2016-03-20 11:52] LABS: ALBUMIN 1.8 g/dl (3.3-4.9)
[2016-03-20 11:55] LABS: ALBUMIN/GLOBULIN RATIO 0.78; CALCIUM 7.1 mg/dl (8.4-10.2); CREATININE 1.27 mg/dl (0.44-1.00); TOTAL PROTEIN 4.1 g/dl (6.1-8.1)
[2016-03-20] MEDS ORDERED: ALBUTEROL HFA 8 GM INHALER INH PRN (12:00)
[2016-03-20 12:04] LABS: CONDITION 1; LH ANALYZER COMMENTS 1; SUSPECT 1
[2016-03-20 12:05] LABS: POTASSIUM 2.8 mmol/L (3.5-5.1)
--- NOTE | 2016-03-20 12:38 | PN ---
DATE: 03/20/2016 SUBJECTIVE: The patient was intubated yesterday and transferred to ICU. She also spiked fever of 1 01.3 last night, currently afebrile, looks comfortable and in no distress. LABORATORY: WBC today 25.8, H and H 8.9 and 26.6, platelets 218, neutrophils 87, bands 4, lymphs 5, monos 4. BUN 41, creatinine 1.21. MICROBIOLOGY: The patient had blood culture on 03/18/2016 that is negative. Catheter tip culture p ending. Wound culture of her left foot pending. INDWELLINGS: She has peripheral IV, endotracheal tube, NG tube, Francois. ANTIMICROBIALS: 1. Vancomycin. 2. Merrem started yesterday. 3. Also, fluconazole. 4. Oral vancomycin. 5. Flagyl. 6. Dificid. PHYSICAL EXAMINATION: GENERAL: Fragile, elderly woman who is lying comfortably in bed. HEENT: Head atraumatic, normocephalic. Sclerae anicteric. Buccal mucosa dry. NECK: Supple, trachea midline. CHEST: Rise symmetrical. Breath sounds diminished at the bases. HEART: S1, S2. ABDOMEN: Soft, distended. Bowel tones hypoactive. EXTREMITIES: With bilateral edema, left lower extremity looks much better with decreased erythema. ASSESSMENT: 1. Sepsis. 2. Acute respiratory failure, status post intubated, rule out aspiration event. 3. Bilateral pleural effusions status post thoracentesis a couple days ago with cultures being nega tive. 4. Severe pancolitis, patient remains on coverage with Dificid, oral vancomycin and Flagyl. 5. Left lower extremity cellulitis, resolving. 6. Status post Ann glabrata urinary tract infection. 7. Status post cervical spine injury. 8. Status post diagnostic laparoscopy on 03/01/2016. PLAN: The patient remains hemodynamically stable. Again cultures are pending. Her left lower extr emity looks much better. We will send sputum for cultures since she is intubated and await for kaya l studies and follow recommendations of specialist. Dictated By: PHOEBE BANDA HOME AIDE for JUAN HUGHES MD NI/NTS Conf#: [id number] DID#: [id number]
--- NOTE | 2016-03-20 12:45 | PN ---
Date/Time of Note Date/Time of Note DATE: 03/20/16 TIME: 12:45 Assessment/Plan VTE Prophylaxis VTE Prophylaxis Intervention: heparin Lines/Catheters IV Catheter Type (from Nrs): Saline Lock Urinary Cath still in place: Yes Reason Cath still needed: other (indicate) (strict I/O) Assessment/Plan Assessment/Plan 1. Sepsis. 2. Acute respiratory failure, intubated on ventilator, possible aspiratio pNA 3. Bilateral pleural effusions status post thoracentesis a couple days ago with cultures being negative. 4. Severe pancolitis, patient remains on coverage with Dificid, oral vancomycin and Flagyl. 5. Left lower extremity cellulitis, resolving. 6. Status post Ann glabrata urinary tract infection. 7. Status post cervical spine injury. 8. Status post diagnostic laparoscopy on 03/01/2016. Plan: IV abx, ID following Cardiolgoy consult to see pt Vent management as per pulmonary BP stable Family meeting tomorrow at 9 am Albumin + NS bolus followed by lasix IV bicarbonate drip appreciate other speciality help Heparin for DVT prophylaxis Subjective 24 Hr Interval Summary Free Text/Dictation pt remains critically ill, BP labile, Urine output low Exam/Review of Systems Vital Signs Vitals Vital Signs Date Time Temp Pulse Resp B/P Pulse Ox O2 Delivery O2 Flow Rate FiO2 03/20/16 12:00 66 03/20/16 11:30 20 111/59 100 03/20/16 10:30 Mechanical Ventilator 03/20/16 08:00 97.5 03/20/16 08:00 50 03/19/16 16:05 2.0 Intake and Output 03/19/16 03/19/16 03/20/16 15:00 23:00 07:00 Intake Total 1051.3 ml 813.8 ml Output Total 885 ml 340 ml Balance 166.3 ml 473.8 ml Exam GENERAL: Fragile, intubated on ventilator HEENT: Head atraumatic, normocephalic. Sclerae anicteric. Buccal mucosa dry. NECK: Supple, trachea midline. CHEST: Rise symmetrical. Breath sounds diminished at the bases. HEART: S1, S2. ABDOMEN: Soft, distended. Bowel tones hypoactive. EXTREMITIES: With bilateral edema, left lower extremity looks much better with decreased erythema. Results Result Diagram: 03/20/16 1125 03/20/16 1125 Results 24 hrs Laboratory Tests Test 03/19/16 15:19 03/19/16 15:23 03/19/16 16:27 03/19/16 17:06 Bedside Glucose 139 Arterial Blood HCO3 16.3 L 20.5 L Arterial Blood Base Excess -13.2 L -4.7 L Arterial Blood Oxygen Saturation 67.1 L 99.2 Kaiden Test N/A ACCEPTAB Arterial Blood Gas Puncture Site Right Brachial Right Radial Arterial Blood Carboxyhemoglobin 0.3 0.2 Arterial Blood Date Drawn 03/19/2016 3:29:00 PM 03/19/2016 5:14:14 PM Arterial Blood Methemoglobin 0.3 0.4 Arterial Blood pCO2 (Temp correct) 52.5 H 38.1 Arterial Blood pH (Temp corrected) 7.104 *L 7.349 L Arterial Blood pO2 (Temp corrected) 49.0 *L 328.6 H Blood Gas A-a O2 Differential 614.0 H 346.3 H Blood Gas Critical Value Read Back lev norris r.n. Blood Gas Modality MASK - NRB VENT - AC Blood Gas Notified Time 03/19/2016 3:36:00 PM 03/19/2016 5:22:11 PM Blood Gas Notified Whom ab ab Blood Gas Specimen Source Blood arterial Blood arterial Blood Gas Temperature 36.0 37.0 FiO2 100.0 100.0 Oxyhemoglobin Percent 66.7 L 98.6 Total Hemoglobin 10.3 L 9.5 L Troponin I 0.765 *H Blood Gas Actual Respiration Rate 14 Blood Gas Respiration Rate 14.0 Blood Gas Tidal Volume 500.0 Test 03/19/16 17:15 03/19/16 22:35 03/20/16 04:45 03/20/16 09:10 Alanine Aminotransferase (ALT/SGPT) 30 29 Albumin 2.0 L 1.9 L Albumin/Globulin Ratio 0.86 0.82 Alkaline Phosphatase 108 100 Anion Gap 14 14 Aspartate Amino Transf (AST/SGOT) 19 20 Band Neutrophils % 4.0 4.0 Blood Morphology Comment Blood Urea Nitrogen 40 H 41 H Calcium Level 7.0 L 7.3 L Carbon Dioxide Level 23 20 L Chloride Level 116 H 117 H Creatinine 1.37 H 1.21 H Direct Bilirubin 0.00 0.00 Globulin 2.30 2.30 Glucose Level 146 106 # Hematocrit 27.4 L 26.6 L Hemoglobin 8.9 L 8.9 L Hypochromasia 1+ Indirect Bilirubin 0.0 0.0 Lymphocytes # 0.5 L 1.3 Lymphocytes % 2.0 L 5.0 L Macrocytosis 1+ Mean Corpuscular Hemoglobin 30.6 31.7 Mean Corpuscular Hemoglobin Concent 32.3 33.3 Mean Corpuscular Volume 94.9 95.1 Mean Platelet Volume 9.9 10.9 H Monocytes # 0.5 1.0 H Monocytes % 2.0 4.0 Neutrophils # 23.6 H 22.4 H Neutrophils % 92.0 H 87.0 H Platelet Count 215 218 Potassium Level 2.6 *L 2.8 *L Red Blood Count 2.89 L 2.80 L Red Cell Distribution Width 18.2 H 18.1 H Sodium Level 150 H 148 H Total Bilirubin 0.0 L 0.0 L Total Protein 4.3 L 4.2 L White Blood Count 25.6 H 25.8 H Troponin I 0.694 *H 0.445 *H Basophils # Basophils % Differential Comment MANUAL DIFF Eosinophils # Eosinophils % Nucleated Red Blood Cells # Nucleated Red Blood Cells % Arterial Blood HCO3 18.7 L Arterial Blood Base Excess -4.7 L Arterial Blood Oxygen Saturation 97.2 Kaiden Test ACCEPTAB Arterial Blood Gas Puncture Site Right Radial Arterial Blood Carboxyhemoglobin 0.3 Arterial Blood Date Drawn 03/20/2016 9:24:14 AM Arterial Blood Methemoglobin 0.3 Arterial Blood pCO2 (Temp correct) 28.9 L Arterial Blood pH (Temp corrected) 7.429 Arterial Blood pO2 (Temp corrected) 106.7 H Blood Gas A-a O2 Differential 145.3 H Blood Gas Actual Respiration Rate 16 Blood Gas Low PEEP Setting 5.0 Blood Gas Modality VENT - AC Blood Gas Notified Time 03/20/2016 9:45:06 AM Blood Gas Notified Whom JLD Blood Gas Respiration Rate 14.0 Blood Gas Specimen Source Blood arterial Blood Gas Temperature 37.0 Blood Gas Tidal Volume 500.0 FiO2 40.0 Oxyhemoglobin Percent 96.6 Total Hemoglobin 9.5 L Test 03/20/16 11:25 Alanine Aminotransferase (ALT/SGPT) 35 Albumin 1.8 L Albumin/Globulin Ratio 0.78 Alkaline Phosphatase 105 Anion Gap 17 H Aspartate Amino Transf (AST/SGOT) 22 Basophils # Pending Basophils % Pending Blood Morphology Comment Blood Urea Nitrogen 41 H Calcium Level 7.1 L Carbon Dioxide Level 18 L Chloride Level 118 H Creatinine 1.27 H Direct Bilirubin 0.00 Eosinophils # Pending Eosinophils % Pending Globulin 2.30 Glucose Level 99 Hematocrit 27.6 L Hemoglobin 9.1 L Indirect Bilirubin 0.0 Lymphocytes # Pending Lymphocytes % Pending Mean Corpuscular Hemoglobin 31.1 Mean Corpuscular Hemoglobin Concent 32.9 Mean Corpuscular Volume 94.7 Mean Platelet Volume 10.8 H Monocytes # Pending Monocytes % Pending Neutrophils # Pending Neutrophils % Pending Nucleated Red Blood Cells # Pending Nucleated Red Blood Cells % Pending Platelet Count 205 Potassium Level 2.8 *L Red Blood Count 2.92 L Red Cell Distribution Width 18.3 H Sodium Level 150 H Total Bilirubin 0.0 L Total Protein 4.1 L Troponin I 0.310 *H White Blood Count 25.2 H Medications Medications Current Medications Lorazepam (Ativan) 0.5 mg Q6H PRN IV ANXIETY Last administered on 03/17/16 18: 50; Admin Dose 0.5 MG; Start 02/24/16 at 02:00 Ondansetron HCl (Zofran Inj) 4 mg Q6H PRN IV NAUSEA AND/OR VOMITING Last administered on 03/01/16 13:17; Admin Dose 4 MG; Start 02/24/16 at 02:00 Nitroglycerin (Nitroglycerin (Sl Tab) 0.4 Mg) 1 tab Q5M PRN SL CHEST PAIN; Start 02/24/16 at 02:00 Hydralazine HCl (Apresoline) 10 mg Q6H PRN IV SBP > 160 Last administered on 04:35; Admin Dose 10 MG; Start 02/24/16 at 02:00 Labetalol HCl (Labetalol) 10 mg Q6 PRN IV ELEVATED BLOOD PRESSURE; Start at 23:00 Guaifenesin/ Dextromethorphan (Robitussin Dm Liquid Cup) 5 ml Q6 PRN PO COUGH Last administered on 02/27/16 18:12; Admin Dose 5 ML; Start 02/24/16 at 23:00 Nicotine (Nicoderm 21 Mg/ 24hr) 1 patch DAILY TRANSDERM Last administered on 10:08; Admin Dose 1 PATCH; Start 02/26/16 at 09:00 Levothyroxine Sodium (Synthroid) 25 mcg DAILY@06 PO Last administered on 10:07; Admin Dose 25 MCG; Start 02/28/16 at 06:00 Hydromorphone HCl (Dilaudid) 0.5 mg Q3 PRN IV PAIN Last administered on 13:15; Admin Dose 0.5 MG; Start 03/02/16 at 17:00 Heparin Sodium (Porcine) (Heparin (5000 Units/0.5 ml)) 5,000 unit BID SC Last administered on 03/20/16 10:05; Admin Dose 5,000 UNIT; Start 03/02/16 at 21:30 Fidaxomicin (Dificid) 200 mg BID PO Last administered on 03/20/16 10:07; Admin Dose 200 MG; Start 03/07/16 at 21:00 Potassium Chloride (Potassium Chloride Pwd/Soln) 20 meq BID PO Last administered on 03/20/16 10:08; Admin Dose 20 MEQ; Start 03/08/16 at 12:30 Dicyclomine HCl (Bentyl) 10 mg BID PO Last administered on 03/20/16 10:07; Admin Dose 10 MG; Start 03/15/16 at 21:00 Metronidazole (Flagyl) 500 mg Q8 PO Last administered on 03/20/16 05:51; Admin Dose 500 MG; Start 03/16/16 at 22:00 Vancomycin HCl (Vancomycin Oral Syringe) 250 mg Q6 PO Last administered on 05:51; Admin Dose 250 MG; Start 03/17/16 at 18:00 Verapamil HCl (Verapamil) 5 mg Q6H PRN IV ELEVATED HEART RATE Last administered on 03/17/16 23:45; Admin Dose 5 MG; Start 03/17/16 at 23:30 Zolpidem Tartrate (Ambien) 5 mg HS PRN PO INSOMNIA Last administered on 23:56; Admin Dose 5 MG; Start 03/17/16 at 23:30 Metoprolol Tartrate (Lopressor) 5 mg Q4H PRN IV ELEVATED HEART RATE Last administered on 03/18/16 01:41; Admin Dose 5 MG; Start 03/18/16 at 01:30 Acetaminophen 650 mg 650 mg Q6H PRN PO PAIN AND OR ELEVATED TEMP Last administered on 03/19/16 01:18; Admin Dose 650 MG; Start 03/18/16 at 23:30 Meropenem 100 ml @ 200 mls/hr Q12 IVPB Last administered on 03/20/16 10:09; Admin Dose 200 MLS/HR; Start 03/19/16 at 09:00 Fluconazole/ Sodium Chloride 50 ml @ 50 mls/hr Q24H IVPB Last administered on 10:09; Admin Dose 50 MLS/HR; Start 03/19/16 at 08:30 Potassium Chloride/Dextrose/ Sodium Chloride (KCl/D5-NS) 1,005 ml @ 50 mls/hr Q20H6M IV Last administered on 03/20/16 10:10; Admin Dose 50 MLS/HR; Start 03/19 at 17:00 Enoxaparin Sodium 40 mg 40 mg DAILY SC Last administered on 03/20/16 10:05; Admin Dose 40 MG; Start 03/20/16 at 09:00 Propofol 100 ml @ 1.692 mls/ hr Q12H IV Last administered on 03/20/16 10:12; Admin Dose 10.49 MLS/HR; Start 03/20/16 at 01:00 Vancomycin HCl/ Sodium Chloride (Vancocin/NS) 150 ml @ 75 mls/hr Q24H IVPB ; Start 03/21/16 at 01:00 HOWARD LEVY MD Mar 20, 2016 12:45
[2016-03-20] MEDS ORDERED: SOD CHLORIDE 0.9% 500 ML IV ONE (13:00)
[2016-03-20] MEDS ORDERED: FUROSEMIDE 20 MG INJ IV ONE (13:00)
[2016-03-20] MEDS ORDERED: ALBUMIN HUMAN 25% 100 ML IV ONE (13:00)
[2016-03-20 13:48] LABS: LYMPHOCYTES # 0.5 10^3/ul (0.8-2.9); MONOCYTE # 1.3 10^3/ul (0.3-0.9); NEUTROPHIL # 22.2 10^3/ul (1.6-7.5)
--- NOTE | 2016-03-20 14:12 | CONS ---
DATE OF ADMISSION: 02/24/2016 DATE OF CONSULTATION: 03/20/2016 REASON FOR CONSULTATION: Positive troponin as well as cardiomyopathy with depressed left ventricula r ejection fraction. REQUESTING PHYSICIAN: Howard Petit MD. HISTORY OF PRESENT ILLNESS: Ms. Aguilar is a 80-year-old female with a history of hypertension, a recent fall from a roof in [place] where she had 4 rib fractures and pneumothorax, requiring a chest tube in a hospital in [place]. She was admitted on 02/24/2016 with shortness of breath and found to have pneumonia, also a pneumothorax was noted prior from fall, transaminitis, hypernatremia. The p atient had been admitted to the ICU and course had been complicated by an additional development of pancolitis and has been status post exploratory laparoscopic surgery. The abdomen is without signif icant findings. Additionally, the patient had undergone a VATS with decortication and was found to have a hemothorax . The patient most recently had remained in the ICU, was making improvements, and on the had a code blue with a respiratory arrest requiring an emergent reintubation. The patient now remains in the ICU, intubated, off of pressure support. The patient underwent a 2D echo on 03/19/2016, interpr eted by an outside die maker trim to have an EF of 35% with trace mitral and tricuspid regurgitation, mild aortic regurgitation. Additionally, the patient has been noted to have mildly positive troponi ns with downtrended since the from 0.765 down to 0.310. PAST MEDICAL HISTORY: As above in HPI. MEDICATIONS CURRENTLY IN HOSPITAL: 1. Vancomycin. 2. Lasix 20 mg IV x1. 3. IV fluid hydration at 100 mL an hour. 4. Albumin. 5. Bicarbonate fluids. 6. Potassium chloride. 7. Meropenem. 8. IV vancomycin. 9. IV fluconazole. 10. Tylenol. 11. Metoprolol p.r.n. 12. Verapamil p.r.n. 13. Vancomycin 250 mg p.o. q.6. 14. Flagyl 500 mg q.8h. 15. Bentyl 10 mg b.i.d. 16. Potassium chloride. 17. Heparin 5000 subq b.i.d. 18. Dilaudid. 19. Synthroid 50 mcg daily. 20. Nicotine patch. 21. Labetalol p.r.n. 22. Robitussin p.r.n. 23. Ativan p.r.n. 24. Zofran p.r.n. 25. Sublingual nitroglycerin p.r.n. 26. Hydralazine IV push p.r.n. ALLERGIES: NO KNOWN DRUG ALLERGIES. SOCIAL HISTORY: No tobacco, ETOH or illicit drug use. FAMILY HISTORY: No history of sudden cardiac or early CAD. REVIEW OF SYSTEMS: As above in HPI. CONSTITUTIONAL: No fevers, chills. PULMONARY: Respiratory failure, status post intubation. GASTROINTESTINAL: No vomiting, but pancolitis. GENITOURINARY: No hematuria but renal failure. PSYCHIATRIC: No documented psychiatric history. NEUROLOGIC: Altered mental state. CARDIOVASCULAR: Positive troponin, cardiomyopathy. PHYSICAL EXAMINATION: VITAL SIGNS: Temperature 97.5, blood pressure most recently 111/59, pulse 66, respiratory rate 20, saturating 100%. GENERAL: The patient is intubated and sedated. NECK: JVP approximately 9 cm water. CHEST: Upper airway rhonchorous sounds. HEART: Regular rate and rhythm. Normal S1, S2, I/ systolic murmur, nondisplaced PMI. ABDOMEN: Positive bowel sounds, soft. EXTREMITIES: There is 2 to 3+ pitting edema lower extremity. Difficult to palpate distal pulses bi laterally, posterior tibial. LABORATORY DATA: Most recently from today, sodium 150, potassium 2.8, creatinine 1.27, BUN 41. Tro ponin 0.30 down from 0.445. White blood cell count 25.2, hemoglobin 9.1, platelet count of 205. AB G revealing a pH of 7.429, a PaO2 of 106 and pCO2 of 28. IMAGING STUDIES: Chest x-ray from 03/19/2016 revealing mild to moderate right pleural effusion and partial right lower lobe, trace left pleural effusion and ankle x-ray that revealed marked so ft tissue swelling . ECG: From 03/19/2016, revealed rhythm most probable consistent with sinus tachycardia, rate 115, no rmal axis, normal intervals, with diffuse nonspecific ST-T abnormalities. IMPRESSION: 1. Positive troponin, assess significance in the setting of renal failure, status post code blue wi th respiratory arrest. 2. Cardiomyopathy with decreased left ventricular ejection fraction, last being approximately 35% b y echo. 3. Abnormal electrocardiogram, assess for acute coronary syndrome. 4. Hypotension, borderline. 5. Anemia. 6. Renal failure. 7. Hypokalemia. 8. Hypernatremia 9. Hemothorax status post VATS with decortication. 10. Status post pulmonary arrest. 11. Anemia. 12. Lower extremity edema, severe. RECOMMENDATIONS: 1. At this time, would maintain the patient on telemetry monitoring to follow rhythm and rate contr ol closely. 2. Continue to trend the patient's cardiac enzymes at this time to assess for any significant ongoi ng cardiac damage. 3. Continue the patient's current Lasix gentle diuresis. Will add low dose hydralazine afterload r eduction in the setting of renal failure. 4. We will continue the patient's broad-spectrum antibiotics and follow up all culture data. 5. Place the patient on low dose aspirin as tolerated in the setting of positive troponins. Contin ue the patient also unremarkable for followup all culture data. 6. Ongoing GI and infectious disease evaluations. 7. Further workup and treatment based on clinical issues further recommendations pertaining to the care of this patient will be made as patient progresses through her inpatient hospital course. Dictated By: KORINA SOFIA/JOSUÉ Conf#: [id number] DID#: [id number] CC: HOWARD PETIT MD;*End*
[2016-03-20] MEDS: SODIUM BICARBONATE (IV ADD) 100 MEQ in DEXTROSE 5% 1,000 ML IV SCH (14:30)
--- NOTE | 2016-03-20 14:42 | RADRPT ---
PROCEDURE: XR Chest. CLINICAL INDICATION: Respiratory failure. TECHNIQUE: Single frontal view of the chest was obtained COMPARISON: Chest x-ray 03/19/2016. FINDINGS: The endotracheal tube is positioned 1 cm above the blaire. NG tube is positioned distal to the GE j unction. There are bilateral pleural effusions which are unchanged. There is compressive atelectas is in the bases of the lungs. Consolidative infiltrate is suspected in the right lower lobe which is unchanged. There is plate-like atelectasis in the left lower lobe. Heart is normal in size. There are degenerative osteophytes in the thoracic spine. IMPRESSION: 1. There are bilateral pleural effusions with compressive atelectasis in the bases of the lungs and plate-like atelectasis in the left lower lobe. These findings are little change when compared to the prior study. 2. Associated consolidative infiltrate in the right lower lobe which is unchanged. 3. The endotracheal tube is positioned 1 cm superior to the blaire. 4. An NG tube is well positioned distal to the GE junction. 5. Dextroscoliosis of the lower thoracic spine with secondary osteoarthritic degenerative changes. RPTAT:AAJJ Physician Shayna Date Time Electronically viewed and signed by Physician Shayna on 03/20/2016 14:42 CHI/
[2016-03-20 15:39] LABS: POTASSIUM 3.1 mmol/L (3.5-5.1)
[2016-03-20 15:42] LABS: CALCIUM 7.3 mg/dl (8.4-10.2); CREATININE 1.18 mg/dl (0.44-1.00)
[2016-03-20] MEDS: POTASSIUM CHLORIDE 50 ML IVPB PRN ×3 (16:49→19:36)
--- NOTE | 2016-03-20 17:48 | RADRPT ---
PROCEDURE: US Lower extremity Venous. CLINICAL INDICATION: Bilateral lower extremity edema TECHNIQUE: Multiple sonographic images of the bilateral lower extremity deep venous system was obt ained utilizing grayscale, color-flow, compressive sonography and doppler imaging with augmentation. COMPARISON: 02/24/2016 FINDINGS: There is normal compressibility / flow within the bilateral common femoral, femoral and popliteal ve ins. The visualized deep veins of the calf are unremarkable. RPTAT:HJJR IMPRESSION: No sonographic evidence for deep venous thrombosis of either lower extremity, the study unchanged fr om 02/24/2016. Physician Fatou Date Time Electronically viewed and signed by Physician Fatou on 03/20/2016 17:48 JR/
--- NOTE | 2016-03-20 18:38 | CONS ---
Date/Time of Note Date/Time of Note DATE: 03/20/16 TIME: 18:37 Assessment/Plan Assessment/Plan Additional Assessment/Plan Additional Assessment/Plan Impression: 1. Pancolitis: likely ischemic. c.difficile negative, no infarct on laparotomy exam, culture, wbc in stool negative. 2. Fracture of the ribs. 3. Pneumothorax status post chest tube placement. 4. History of nicotine addiction. 5. Cervical spine injury. 6. History of fall. 7. Peripheral arterial disease. 8. Mild elevation of alkaline phosphatase, most probably related to alcoholic liver disease. 9. Anemia. 10. dysphagia on tube feeds 11.s/p exploratory laparotomy,no bowel resection 12.respiratory failure 13. renal failure,improving [address] shows anasarca ascites, pleural effusion,colitis worsening 16 respiratory failure,on Vent,second time 17 leucocytosis PLAN: 1. Continue antibiotics and anti-fungal per ID 2. continue tube feeds with nephro 3. antibiotics as per ID 4, ng tube feeding 5. Continue supportive care per primary and other consultants 6.albumin and diuretic daily for few days 6.Bentyl 7.thoracocentesis,VATS yesterday Plan continue all supportive care ng tube feeding Consultation Date/Type/Reason Admit Date/Time Feb 24, 2016 at 04:06 Type of Consultation: Pulm 24 HR Interval Summary Constitutional: improved Exam/Review of Systems Vital Signs Vitals Vital Signs Date Time Temp Pulse Resp B/P Pulse Ox O2 Delivery O2 Flow Rate FiO2 03/20/16 18:30 65 22 120/54 100 Mechanical Ventilator 03/20/16 17:20 40 03/20/16 17:00 97.7 03/19/16 16:05 2.0 Intake and Output 03/19/16 03/19/16 03/20/16 14:59 22:59 06:59 Intake Total 891.5 ml 912.9 ml Output Total 810 ml 395 ml Balance 81.5 ml 517.9 ml Exam Constitutional: alert, oriented, well developed Psych: nl mood/affect, no complaints Head: atraumatic, normocephalic Eyes: EOMI, PERRL, nl conjunctiva, nl lids, nl sclera ENMT: nl external ears & nose, nl lips & teeth, nl nasal mucosa & septum Neck: non-tender, supple Respiratory: clear to auscultation, normal air movement Cardiovascular: nl pulses, regular rate and rhythm Gastrointestinal: nl liver, spleen, non-tender, soft Musculoskeletal: nl extremities to inspection, nl gait and stance Extremities: normal pulses Neurological: [employer] II-XII intact, nl mental status, nl speech, nl strength Skin: nl turgor, No rash or lesions Lymph: nl lymph nodes Results Result Diagram: 03/20/16 1125 03/20/16 1520 Results 24 hrs Laboratory Tests Test 03/19/16 22:35 03/20/16 04:45 03/20/16 09:10 03/20/16 11:25 Troponin I 0.694 *H 0.445 *H 0.310 *H Alanine Aminotransferase (ALT/SGPT) 29 35 Albumin 1.9 L 1.8 L Albumin/Globulin Ratio 0.82 0.78 Alkaline Phosphatase 100 105 Anion Gap 14 17 H Aspartate Amino Transf (AST/SGOT) 20 22 Band Neutrophils % 4.0 5.0 Basophils # Basophils % Blood Morphology Comment Blood Urea Nitrogen 41 H 41 H Calcium Level 7.3 L 7.1 L Carbon Dioxide Level 20 L 18 L Chloride Level 117 H 118 H Creatinine 1.21 H 1.27 H Differential Comment MANUAL DIFF MANUAL DIFF Direct Bilirubin 0.00 0.00 Eosinophils # Eosinophils % Globulin 2.30 2.30 Glucose Level 106 # 99 Hematocrit 26.6 L 27.6 L Hemoglobin 8.9 L 9.1 L Indirect Bilirubin 0.0 0.0 Lymphocytes # 1.3 0.5 L Lymphocytes % 5.0 L 2.0 L Mean Corpuscular Hemoglobin 31.7 31.1 Mean Corpuscular Hemoglobin Concent 33.3 32.9 Mean Corpuscular Volume 95.1 94.7 Mean Platelet Volume 10.9 H 10.8 H Monocytes # 1.0 H 1.3 H Monocytes % 4.0 5.0 Neutrophils # 22.4 H 22.2 H Neutrophils % 87.0 H 88.0 H Nucleated Red Blood Cells # Nucleated Red Blood Cells % Platelet Count 218 205 Potassium Level 2.8 *L 2.8 *L Red Blood Count 2.80 L 2.92 L Red Cell Distribution Width 18.1 H 18.3 H Sodium Level 148 H 150 H Total Bilirubin 0.0 L 0.0 L Total Protein 4.2 L 4.1 L White Blood Count 25.8 H 25.2 H Arterial Blood HCO3 18.7 L Arterial Blood Base Excess -4.7 L Arterial Blood Oxygen Saturation 97.2 Kaiden Test ACCEPTAB Arterial Blood Gas Puncture Site Right Radial Arterial Blood Carboxyhemoglobin 0.3 Arterial Blood Date Drawn 03/20/2016 9:24:14 AM Arterial Blood Methemoglobin 0.3 Arterial Blood pCO2 (Temp correct) 28.9 L Arterial Blood pH (Temp corrected) 7.429 Arterial Blood pO2 (Temp corrected) 106.7 H Blood Gas A-a O2 Differential 145.3 H Blood Gas Actual Respiration Rate 16 Blood Gas Low PEEP Setting 5.0 Blood Gas Modality VENT - AC Blood Gas Notified Time 03/20/2016 9:45:06 AM Blood Gas Notified Whom JLD Blood Gas Respiration Rate 14.0 Blood Gas Specimen Source Blood arterial Blood Gas Temperature 37.0 Blood Gas Tidal Volume 500.0 FiO2 40.0 Oxyhemoglobin Percent 96.6 Total Hemoglobin 9.5 L Test 03/20/16 15:20 Anion Gap 15 Blood Urea Nitrogen 40 H Calcium Level 7.3 L Carbon Dioxide Level 20 L Chloride Level 117 H Creatinine 1.18 H Glucose Level 91 Potassium Level 3.1 L Sodium Level 149 H Medications Medications Current Medications Lorazepam (Ativan) 0.5 mg Q6H PRN IV ANXIETY Last administered on 03/17/16 18: 50; Admin Dose 0.5 MG; Start 02/24/16 at 02:00 Ondansetron HCl (Zofran Inj) 4 mg Q6H PRN IV NAUSEA AND/OR VOMITING Last administered on 03/01/16 13:17; Admin Dose 4 MG; Start 02/24/16 at 02:00 Nitroglycerin (Nitroglycerin (Sl Tab) 0.4 Mg) 1 tab Q5M PRN SL CHEST PAIN; Start 02/24/16 at 02:00 Hydralazine HCl (Apresoline) 10 mg Q6H PRN IV SBP > 160 Last administered on 04:35; Admin Dose 10 MG; Start 02/24/16 at 02:00 Labetalol HCl (Labetalol) 10 mg Q6 PRN IV ELEVATED BLOOD PRESSURE; Start at 23:00 Guaifenesin/ Dextromethorphan (Robitussin Dm Liquid Cup) 5 ml Q6 PRN PO COUGH Last administered on 02/27/16 18:12; Admin Dose 5 ML; Start 02/24/16 at 23:00 Nicotine (Nicoderm 21 Mg/ 24hr) 1 patch DAILY TRANSDERM Last administered on 10:08; Admin Dose 1 PATCH; Start 02/26/16 at 09:00 Levothyroxine Sodium (Synthroid) 25 mcg DAILY@06 PO Last administered on 10:07; Admin Dose 25 MCG; Start 02/28/16 at 06:00 Hydromorphone HCl (Dilaudid) 0.5 mg Q3 PRN IV PAIN Last administered on 13:15; Admin Dose 0.5 MG; Start 03/02/16 at 17:00 Heparin Sodium (Porcine) (Heparin (5000 Units/0.5 ml)) 5,000 unit BID SC Last administered on 03/20/16 10:05; Admin Dose 5,000 UNIT; Start 03/02/16 at 21:30 Fidaxomicin (Dificid) 200 mg BID PO Last administered on 03/20/16 10:07; Admin Dose 200 MG; Start 03/07/16 at 21:00 Dicyclomine HCl (Bentyl) 10 mg BID PO Last administered on 03/20/16 10:07; Admin Dose 10 MG; Start 03/15/16 at 21:00 Metronidazole (Flagyl) 500 mg Q8 PO Last administered on 03/20/16 15:30; Admin Dose 500 MG; Start 03/16/16 at 22:00 Vancomycin HCl (Vancomycin Oral Syringe) 250 mg Q6 PO Last administered on 12:30; Admin Dose 250 MG; Start 03/17/16 at 18:00 Verapamil HCl (Verapamil) 5 mg Q6H PRN IV ELEVATED HEART RATE Last administered on 03/17/16 23:45; Admin Dose 5 MG; Start 03/17/16 at 23:30 Zolpidem Tartrate (Ambien) 5 mg HS PRN PO INSOMNIA Last administered on 23:56; Admin Dose 5 MG; Start 03/17/16 at 23:30 Metoprolol Tartrate (Lopressor) 5 mg Q4H PRN IV ELEVATED HEART RATE Last administered on 03/18/16 01:41; Admin Dose 5 MG; Start 03/18/16 at 01:30 Acetaminophen 650 mg 650 mg Q6H PRN PO PAIN AND OR ELEVATED TEMP Last administered on 03/19/16 01:18; Admin Dose 650 MG; Start 03/18/16 at 23:30 Meropenem 100 ml @ 200 mls/hr Q12 IVPB Last administered on 03/20/16 10:09; Admin Dose 200 MLS/HR; Start 03/19/16 at 09:00 Fluconazole/ Sodium Chloride 50 ml @ 50 mls/hr Q24H IVPB Last administered on 10:09; Admin Dose 50 MLS/HR; Start 03/19/16 at 08:30 Propofol 100 ml @ 1.692 mls/ hr Q12H IV Last administered on 03/20/16 10:12; Admin Dose 10.49 MLS/HR; Start 03/20/16 at 01:00 Vancomycin HCl 750 mg/Sodium Chloride 150 ml @ 75 mls/hr Q24H IVPB ; Start 03/21 at 01:00 Sodium Bicarbonate/ Dextrose (Na Bicarb/D5W) 1,100 ml @ 75 mls/hr [id number] IV Last administered on 03/20/16 14:30; Admin Dose 75 MLS/HR; Start 03/20/16 at 13: 00 Hydralazine HCl (Apresoline) 10 mg Q8 PO ; Start 03/20/16 at 14:00 Aspirin (Aspirin) 81 mg DAILY NGT ; Start 03/21/16 at 09:00 Furosemide (Lasix) 20 mg DAILY IV ; Start 03/21/16 at 09:00 CHARISSA WILHELM MD Mar 20, 2016 18:38
[2016-03-20 19:37] LABS: CK-MB 3.45 ng/ml (0.0-2.4); TROPONIN-I 0.247 ng/ml (0.00-0.12)
[2016-03-20 22:25] LABS: POTASSIUM 3.2 mmol/L (3.5-5.1)
[2016-03-20 22:27] LABS: CREATININE 1.16 mg/dl (0.44-1.00)
--- NOTE | 2016-03-20 22:27 | PN ---
Date/Time of Note Date/Time of Note DATE: 03/20/16 TIME: 22:24 Assessment/Plan Lines/Catheters IV Catheter Type (from [facility]): Peripheral IV Francois in Place (from [facility]): Yes Assessment/Plan Chief Complaint/Hosp Course 1. Abdominal pain, with CT diagnosis of pancolitis, with significant leukocytosis and bandemia. s/p Lap exploration and only small mid transverse with min mottling. Bowel function. -Antibiotics per ID -Judicious fluid management 2. Sepsis, multifactorial (pancolitis ? ischemic, urinary tract infection, pulmonary infiltrates, bacteremia). Worsening leukocytosis ? etiology ( aspiration vs other) -Cultures -Antibiotic therapy. -Judicious fluid management. -Close monitoring. 3. Renal insufficiency secondary to sepsis. Improving Cr -Continue judicious fluid management. -Avoid nephrotoxic agents as possible. 4. Anemia, with recent hemothorax requiring VATS decortication. -Transfuse as needed. 5. Hypoalbuminemia. -Eventual nutritional optimization. 6. Hypernatremia -Correct with fluid management. 7. Hypertension. -Nutritional and medication optimization. 8. Hypothyroidism. -Replace hormone. 9. Hemopneumothorax, status post VATS. CT removed -followed by CT surgery. 10. Cervical spine injury, being maintained in brace by neurosurgery. 11. Respiratory distress s/p re-intubation. ? Aspiration PNA -pulmonary toilette -abx -ventilator management Thank you, Problems: Subjective 24 Hr Interval Summary Leukocytosis. Re-intubated 2nd resp distress. s/p Thoracentesis and 550 ml removal from right side 03/18. No f/c. No v. Bowel function. On feeds. Min bloated. No cough. No sz. No rash. Exam/Review of Systems Vital Signs Vitals Vital Signs Date Time Temp Pulse Resp B/P Pulse Ox O2 Delivery O2 Flow Rate FiO2 03/20/16 18:30 65 22 120/54 100 Mechanical Ventilator 03/20/16 17:20 40 03/20/16 17:00 97.7 03/19/16 16:05 2.0 Intake and Output 03/19/16 03/19/16 03/20/16 15:00 23:00 07:00 Intake Total 1051.3 ml 813.8 ml Output Total 885 ml 340 ml Balance 166.3 ml 473.8 ml Exam Free Text/Dictation GENERAL: NAD. Intubated HEENT: Pupils equal, reactive. No scleral icterus. Mucous membranes are somewhat dry. NECK: No crepitus. No JVD. PULMONARY: Normal respiratory effort ABDOMEN: No rebound/guarding/rigidity. Distended. EXTREMITIES: Trace edema. VASCULAR: Capillary refill is 2 seconds. NEUROLOGIC: Ventilated SKIN: No rashes/jaundice. PSYCH: Ventilated Results Result Diagram: 03/20/16 1125 03/20/16 1520 CHRISTIANO JENNINGS MD Mar 20, 2016 22:27
[2016-03-20 22:28] LABS: CALCIUM 7.2 mg/dl (8.4-10.2)
[2016-03-21] VITALS (54 sets, daily range): BP systolic 107–176; BP diastolic 44–103; PULSE 58–101; RESP 14–34
[2016-03-21] MEDS: POTASSIUM CHLORIDE 50 ML IVPB PRN ×4 (00:31→11:12)
[2016-03-21] MEDS ORDERED: VANCOMYCIN 750 MG in SOD CHLORIDE 0.9% 150 ML IVPB SCH (01:00)
[2016-03-21 01:15] LABS: CK-MB 3.71 ng/ml (0.0-2.4)
[2016-03-21 01:47] LABS: TROPONIN-I 0.238 ng/ml (0.00-0.12)
[2016-03-21] MEDS: SODIUM BICARBONATE (IV ADD) 100 MEQ in DEXTROSE 5% 1,000 ML IV SCH ×3 (03:40→20:41)
[2016-03-21 05:49] LABS: AADO2 Arterial 158.4 mmHg (7.0-24.0); Allen Test ACCEPTAB; Arterial COHb 0.3 % (0.0-3.0); Arterial Fraction of Oxyhgb 96.2 % (93.0-99.0); Arterial HCO3 17.3 mmol/L (22.0-26.0); Arterial MetHb 0.5 % (0.0-1.5); Arterial Total Hemglobin 8.3 g/dl (12.0-18.0); MODE VENT - AC
[2016-03-21] MEDS: PROPOFOL 100 ML IV SCH ×2 (05:56→18:00)
[2016-03-21] MEDS: metroNIDAZOLE 500 MG TAB PO SCH ×3 (05:57→21:18)
[2016-03-21] MEDS: PANTOPRAZOLE 40 MG INJ IV SCH (05:57)
[2016-03-21] MEDS: LEVOTHYROXINE 25 MCG TAB PO SCH (05:57)
[2016-03-21 07:01] LABS: ALBUMIN 2.1 g/dl (3.3-4.9); POTASSIUM 3.7 mmol/L (3.5-5.1)
[2016-03-21 07:03] LABS: CREATININE 1.08 mg/dl (0.44-1.00)
[2016-03-21 07:04] LABS: ALBUMIN/GLOBULIN RATIO 0.95; CALCIUM 7.2 mg/dl (8.4-10.2); TOTAL PROTEIN 4.3 g/dl (6.1-8.1)
[2016-03-21 07:20] LABS: BASOPHIL # 0.1 10^3/ul (0.0-0.1); BASOPHILS % 0.5 % (0.0-2.0); EOSINOPHILS # 0.1 10^3/ul (0.0-0.5); EOSINOPHILS % 0.9 % (0.0-7.0); HEMATOCRIT 26.9 % (37.0-47.0); HEMOGLOBIN 8.6 g/dl (12.0-16.0); LYMPHOCYTES # 0.9 10^3/ul (0.8-2.9); LYMPHOCYTES % 6.4 % (15.0-51.0); MEAN CORPUSCULAR HEMOGLOBIN 30.5 pg (29.0-33.0); MEAN CORPUSCULAR HGB CONC 32.1 g/dl (32.0-37.0); MEAN CORPUSCULAR VOLUME 95.1 fl (82.0-101.0); MEAN PLATELET VOLUME 11.7 fl (7.4-10.4); MONOCYTE # 0.7 10^3/ul (0.3-0.9); MONOCYTES % 4.9 % (0.0-11.0); NEUTROPHIL # 12.9 10^3/ul (1.6-7.5); NEUTROPHILS % 87.3 % (39.0-77.0); PLATELET COUNT 212 10^3/UL (140-440); RED BLOOD COUNT 2.83 10^6/ul (4.20-5.40); RED CELL DISTRIBUTION WIDTH 18.1 % (11.5-14.5); UNCORRECTED WBC 14.8 10^3/ul (4.8-10.8); WHITE BLOOD COUNT 14.8 10^3/ul (4.8-10.8)
[2016-03-21 07:33] LABS: CONDITION 1; LH ANALYZER COMMENTS 1; SUSPECT 1
--- NOTE | 2016-03-21 08:44 | CONS ---
Date/Time of Note Date/Time of Note DATE: 03/21/16 TIME: 08:39 Assessment/Plan Assessment/Plan Additional Assessment/Plan Current ventilator settings; assist control of 14, tidal volume 500, PEEP of 5, 40% FiO2. Assessment and recommendations; 1. Patient admitted with a bowel obstruction underwent laparotomy next 2. C. difficile colitis 3. History of pneumothorax 4. Hypertension next 5. Hypothyroidism next 6. Recurrent respiratory failure from abdominal pathology. 7. Status post right thoracentesis. Next 8. Renal insufficiency with improving serum creatinine. 9. Improving leukocytosis on current antibiotic regimen. Continue current treatment. The patient was given an SIMV trial at bedside, she did not handle well and had to be reverted back to assist control mode. Meanwhile a chest x-ray has been ordered ,it is still pending. There is a family conference today around 10:00, the family to decide further plan of care. Prognosis is guarded. Consultation Date/Type/Reason Admit Date/Time Feb 24, 2016 at 04:06 Type of Consultation: Pulmonary/critical care 24 HR Interval Summary Free Text/Dictation Patient condition remains critical. However she has improved overall. Patient despite being on sedation is completely awake and follows simple commands. Does not appear to be in any distress. Has remained hemodynamically stable. General examination; elderly lady, or intubated. Awake currently in no distress. Exam/Review of Systems Vital Signs Vitals Vital Signs Date Time Temp Pulse Resp B/P Pulse Ox O2 Delivery O2 Flow Rate FiO2 03/21/16 07:30 60 17 112/48 100 03/21/16 05:12 40 03/21/16 04:00 97.8 Mechanical Ventilator 03/19/16 16:05 2.0 Intake and Output 03/20/16 03/20/16 03/21/16 15:00 23:00 07:00 Intake Total 791.47 ml 1268.6 ml 1096.6 ml Output Total 125 ml 230 ml 190 ml Balance 666.47 ml 1038.6 ml 906.6 ml Exam HEENT examination; supple neck, no JVD. Bilateral intraocular lens implants are present. She is edentulous. With a few remaining carious teeth. No neck masses. No thyromegaly. Next Chest examination; diminished but clear breath sounds bilaterally. S1-S2 audible, no murmurs. Regular rate and rhythm. Abdomen examination; decreased distention. Bowel sounds are audible. There is a well-healed nephrotomy scar. There is decreased tenderness overall. Next Extremity examination; 2+ pitting edema lower extremities bilaterally. HOME HEALTH CARE RESPIRATORY THERAPIST examination; patient is awake follows simple commands moves all 4 extremities. Results Result Diagram: 03/21/16 0524 03/21/16 0524 Results 24 hrs Laboratory Tests Test 03/20/16 09:10 03/20/16 11:25 03/20/16 15:20 03/20/16 18:25 Arterial Blood HCO3 18.7 L Arterial Blood Base Excess -4.7 L Arterial Blood Oxygen Saturation 97.2 Kaiden Test ACCEPTAB Arterial Blood Gas Puncture Site Right Radial Arterial Blood Carboxyhemoglobin 0.3 Arterial Blood Date Drawn 03/20/2016 9:24:14 AM Arterial Blood Methemoglobin 0.3 Arterial Blood pCO2 (Temp correct) 28.9 L Arterial Blood pH (Temp corrected) 7.429 Arterial Blood pO2 (Temp corrected) 106.7 H Blood Gas A-a O2 Differential 145.3 H Blood Gas Actual Respiration Rate 16 Blood Gas Low PEEP Setting 5.0 Blood Gas Modality VENT - AC Blood Gas Notified Time 03/20/2016 9:45:06 AM Blood Gas Notified Whom JLD Blood Gas Respiration Rate 14.0 Blood Gas Specimen Source Blood arterial Blood Gas Temperature 37.0 Blood Gas Tidal Volume 500.0 FiO2 40.0 Oxyhemoglobin Percent 96.6 Total Hemoglobin 9.5 L Alanine Aminotransferase (ALT/SGPT) 35 Albumin 1.8 L Albumin/Globulin Ratio 0.78 Alkaline Phosphatase 105 Anion Gap 17 H 15 Aspartate Amino Transf (AST/SGOT) 22 Band Neutrophils % 5.0 Basophils # Basophils % Blood Morphology Comment Blood Urea Nitrogen 41 H 40 H Calcium Level 7.1 L 7.3 L Carbon Dioxide Level 18 L 20 L Chloride Level 118 H 117 H Creatinine 1.27 H 1.18 H Differential Comment MANUAL DIFF Direct Bilirubin 0.00 Eosinophils # Eosinophils % Globulin 2.30 Glucose Level 99 91 Hematocrit 27.6 L Hemoglobin 9.1 L Indirect Bilirubin 0.0 Lymphocytes # 0.5 L Lymphocytes % 2.0 L Mean Corpuscular Hemoglobin 31.1 Mean Corpuscular Hemoglobin Concent 32.9 Mean Corpuscular Volume 94.7 Mean Platelet Volume 10.8 H Monocytes # 1.3 H Monocytes % 5.0 Neutrophils # 22.2 H Neutrophils % 88.0 H Nucleated Red Blood Cells # Nucleated Red Blood Cells % Platelet Count 205 Potassium Level 2.8 *L 3.1 L Red Blood Count 2.92 L Red Cell Distribution Width 18.3 H Sodium Level 150 H 149 H Total Bilirubin 0.0 L Total Protein 4.1 L Troponin I 0.310 *H 0.247 *H White Blood Count 25.2 H Creatine Kinase 50 Creatine Kinase Index 6.9 Creatinine Kinase MB (Mass) 3.45 H Test 03/20/16 22:00 03/21/16 00:28 03/21/16 05:00 03/21/16 05:24 Anion Gap 14 18 H Blood Urea Nitrogen 38 H 37 H Calcium Level 7.2 L 7.2 L Carbon Dioxide Level 19 L 18 L Chloride Level 116 H 115 H Creatinine 1.16 H 1.08 H Glucose Level 94 83 Potassium Level 3.2 L 3.7 Sodium Level 146 H 147 H Creatine Kinase 60 Creatine Kinase Index 6.2 Creatinine Kinase MB (Mass) 3.71 H Troponin I 0.238 *H Arterial Blood HCO3 17.3 L Arterial Blood Base Excess -5.0 L Arterial Blood Oxygen Saturation 97.0 Kaiden Test ACCEPTAB Arterial Blood Gas Puncture Site Right Radial Arterial Blood Carboxyhemoglobin 0.3 Arterial Blood Date Drawn 03/21/2016 5:25:00 AM Arterial Blood Methemoglobin 0.5 Arterial Blood pCO2 (Temp correct) 23.2 L Arterial Blood pH (Temp corrected) 7.491 H Arterial Blood pO2 (Temp corrected) 100.1 H Blood Gas A-a O2 Differential 158.4 H Blood Gas Actual Respiration Rate 17 Blood Gas Inspiratory Pressure 28.0 Blood Gas Low PEEP Setting 5.0 Blood Gas Modality VENT - AC Blood Gas Notified Time 03/21/2016 5:48:00 AM Blood Gas Notified Whom RTR Blood Gas Respiration Rate 14.0 Blood Gas Specimen Source Blood arterial Blood Gas Temperature 37.0 Blood Gas Tidal Volume 500.0 FiO2 40.0 Oxyhemoglobin Percent 96.2 Total Hemoglobin 8.3 L Alanine Aminotransferase (ALT/SGPT) 27 Albumin 2.1 L Albumin/Globulin Ratio 0.95 Alkaline Phosphatase 116 Aspartate Amino Transf (AST/SGOT) 29 Basophils # 0.1 Basophils % 0.5 Blood Morphology Comment Direct Bilirubin 0.00 Eosinophils # 0.1 Eosinophils % 0.9 Globulin 2.20 Hematocrit 26.9 L Hemoglobin 8.6 L Indirect Bilirubin 0.0 Lymphocytes # 0.9 Lymphocytes % 6.4 L Mean Corpuscular Hemoglobin 30.5 Mean Corpuscular Hemoglobin Concent 32.1 Mean Corpuscular Volume 95.1 Mean Platelet Volume 11.7 H Monocytes # 0.7 Monocytes % 4.9 Neutrophils # 12.9 H Neutrophils % 87.3 H Nucleated Red Blood Cells # 0.0 Nucleated Red Blood Cells % 0.0 Platelet Count 212 Red Blood Count 2.83 L Red Cell Distribution Width 18.1 H Total Bilirubin 0.0 L Total Protein 4.3 L White Blood Count 14.8 #H Medications Medications Current Medications Lorazepam (Ativan) 0.5 mg Q6H PRN IV ANXIETY Last administered on 03/17/16 18: 50; Admin Dose 0.5 MG; Start 02/24/16 at 02:00 Ondansetron HCl (Zofran Inj) 4 mg Q6H PRN IV NAUSEA AND/OR VOMITING Last administered on 03/01/16 13:17; Admin Dose 4 MG; Start 02/24/16 at 02:00 Nitroglycerin (Nitroglycerin (Sl Tab) 0.4 Mg) 1 tab Q5M PRN SL CHEST PAIN; Start 02/24/16 at 02:00 Hydralazine HCl (Apresoline) 10 mg Q6H PRN IV SBP > 160 Last administered on 04:35; Admin Dose 10 MG; Start 02/24/16 at 02:00 Labetalol HCl (Labetalol) 10 mg Q6 PRN IV ELEVATED BLOOD PRESSURE; Start at 23:00 Guaifenesin/ Dextromethorphan (Robitussin Dm Liquid Cup) 5 ml Q6 PRN PO COUGH Last administered on 02/27/16 18:12; Admin Dose 5 ML; Start 02/24/16 at 23:00 Nicotine (Nicoderm 21 Mg/ 24hr) 1 patch DAILY TRANSDERM Last administered on 10:08; Admin Dose 1 PATCH; Start 02/26/16 at 09:00 Levothyroxine Sodium (Synthroid) 25 mcg DAILY@06 PO Last administered on 05:57; Admin Dose 25 MCG; Start 02/28/16 at 06:00 Hydromorphone HCl (Dilaudid) 0.5 mg Q3 PRN IV PAIN Last administered on 13:15; Admin Dose 0.5 MG; Start 03/02/16 at 17:00 Heparin Sodium (Porcine) (Heparin (5000 Units/0.5 ml)) 5,000 unit BID SC Last administered on 03/20/16 21:29; Admin Dose 5,000 UNIT; Start 03/02/16 at 21:30 Dicyclomine HCl (Bentyl) 10 mg BID PO Last administered on 03/20/16 21:19; Admin Dose 10 MG; Start 03/15/16 at 21:00 Metronidazole (Flagyl) 500 mg Q8 PO Last administered on 03/21/16 05:57; Admin Dose 500 MG; Start 03/16/16 at 22:00 Verapamil HCl (Verapamil) 5 mg Q6H PRN IV ELEVATED HEART RATE Last administered on 03/17/16 23:45; Admin Dose 5 MG; Start 03/17/16 at 23:30 Zolpidem Tartrate (Ambien) 5 mg HS PRN PO INSOMNIA Last administered on 23:56; Admin Dose 5 MG; Start 03/17/16 at 23:30 Metoprolol Tartrate (Lopressor) 5 mg Q4H PRN IV ELEVATED HEART RATE Last administered on 03/18/16 01:41; Admin Dose 5 MG; Start 03/18/16 at 01:30 Acetaminophen 650 mg 650 mg Q6H PRN PO PAIN AND OR ELEVATED TEMP Last administered on 03/19/16 01:18; Admin Dose 650 MG; Start 03/18/16 at 23:30 Meropenem 100 ml @ 200 mls/hr Q12 IVPB Last administered on 03/20/16 21:19; Admin Dose 200 MLS/HR; Start 03/19/16 at 09:00 Fluconazole/ Sodium Chloride 50 ml @ 50 mls/hr Q24H IVPB Last administered on 10:09; Admin Dose 50 MLS/HR; Start 03/19/16 at 08:30 Propofol 100 ml @ 1.692 mls/ hr Q12H IV Last administered on 03/21/16 05:56; Admin Dose 10.829 MLS/HR; Start 03/20/16 at 01:00 Vancomycin HCl 750 mg/Sodium Chloride 150 ml @ 75 mls/hr Q24H IVPB Last administered on 03/21/16 00:32; Admin Dose 75 MLS/HR; Start 03/21/16 at 01:00 Sodium Bicarbonate/ Dextrose (Na Bicarb/D5W) 1,100 ml @ 75 mls/hr [id number] IV Last administered on 03/21/16 06:32; Admin Dose 75 MLS/HR; Start 03/20/16 at 13: 00 Hydralazine HCl (Apresoline) 10 mg Q8 PO Last administered on 03/21/16 05:57; Admin Dose 10 MG; Start 03/20/16 at 14:00 Aspirin (Aspirin) 81 mg DAILY NGT ; Start 03/21/16 at 09:00 Furosemide (Lasix) 20 mg DAILY IV ; Start 03/21/16 at 09:00 Pantoprazole (Protonix Iv) 40 mg DAILY@06 IV Last administered on 03/21/16 05: 57; Admin Dose 40 MG; Start 03/21/16 at 06:00 GAIL SPENCER Mar 21, 2016 08:44
[2016-03-21] MEDS: FUROSEMIDE 20 MG INJ IV SCH (08:57)
[2016-03-21] MEDS: FLUCONAZOLE 100 MG/NS (PMX) 50 ML IVPB SCH (08:57)
[2016-03-21] MEDS: DICYCLOMINE 10 MG CAP PO SCH ×2 (08:57→21:18)
[2016-03-21] MEDS: ASPIRIN 81 MG TAB NGT SCH (08:57)
[2016-03-21] MEDS: NICOTINE (21 MG/24 HR) PATCH TRANSDERM SCH (08:58)
--- NOTE | 2016-03-21 08:58 | RADRPT ---
PROCEDURE: XR Chest. CLINICAL INDICATION: Respiratory failure TECHNIQUE: An AP view of the chest was obtained. COMPARISON: Chest x-ray dated 03/20/2016 FINDINGS: The endotracheal tube tip is approximately 1.3 cm above the blaire. The tip of the enteric tube pr ojects over the left upper quadrant. There is prominence of the interstitial markings with small bilateral pleural effusions. No pneum othorax is seen. The cardiomediastinal silhouette is within normal limits for size. Calcifications are seen within the aortic arch. The osseous structures demonstrate senescent changes. IMPRESSION: 1. Findings suggestive of interstitial edema with small bilateral pleural effusions. No significant interval change. 2. Aortic atherosclerosis. 3. Tubes and lines, as described above. RPTAT: HH .Melani Brito MD, MD Date Time Electronically viewed and signed by .Melani Brito MD, on 03/21/2016 08:58 .G/
[2016-03-21] MEDS: HEPARIN 5,000 UNIT/0.5 ML SYG SC SCH ×2 (09:06→20:49)
--- NOTE | 2016-03-21 09:31 | PN ---
Date/Time of Note Date/Time of Note DATE: 03/21/16 TIME: 09:29 Assessment/Plan VTE Prophylaxis VTE Prophylaxis Intervention: heparin Lines/Catheters IV [facility] Type [facility] Saline Lock Urinary Cath still in place: Yes Reason Cath still needed: other (indicate) (intubated on ventilator ) Assessment/Plan Assessment/Plan 1. Sepsis. 2. Acute respiratory failure, intubated on ventilator, possible aspiratio pNA 3. Bilateral pleural effusions status post thoracentesis a couple days ago with cultures being negative. 4. Severe pancolitis, patient remains on coverage with Dificid, oral vancomycin and Flagyl. 5. Left lower extremity cellulitis, resolving. 6. Status post Ann glabrata urinary tract infection. 7. Status post cervical spine injury. 8. Status post diagnostic laparoscopy on 03/01/2016. Plan: IV abx, ID following Cardiolgoy consult following patient Vent management as per pulmonary- failed SIMV today BP stable Family meeting done at 9 am- explained about pt condition and prognosis, Family to decide about DNR status and further palliative evaluation continue IV bicarbonate drip appreciate other speciality help Heparin for DVT prophylaxis Subjective 24 Hr Interval Summary Free Text/Dictation Pt failed SIMV trial, BP stable,afebrile, Not a good urine output Exam/Review of Systems Vital Signs Vitals Vital Signs Date Time Temp Pulse Resp B/P Pulse Ox O2 Delivery O2 Flow Rate FiO2 03/21/16 08:40 30 03/21/16 08:30 65 17 122/52 100 03/21/16 08:00 97.7 Mechanical Ventilator 03/19/16 16:05 2.0 Intake and Output 03/20/16 03/20/16 03/21/16 15:00 23:00 07:00 Intake Total 791.47 ml 1268.6 ml 1096.6 ml Output Total 125 ml 230 ml 230 ml Balance 666.47 ml 1038.6 ml 866.6 ml Exam GENERAL: Fragile, intubated on ventilator HEENT: Head atraumatic, normocephalic. Sclerae anicteric. Buccal mucosa dry. NECK: Supple, trachea midline. CHEST: Rise symmetrical. Breath sounds diminished at the bases. HEART: S1, S2. ABDOMEN: Soft, distended. Bowel tones hypoactive. EXTREMITIES: With bilateral edema, left lower extremity looks much better with decreased erythema. Results Result Diagram: 03/21/16 0524 03/21/16 0524 Results 24 hrs Laboratory Tests Test 03/20/16 11:25 03/20/16 15:20 03/20/16 18:25 03/20/16 22:00 Alanine Aminotransferase (ALT/SGPT) 35 Albumin 1.8 L Albumin/Globulin Ratio 0.78 Alkaline Phosphatase 105 Anion Gap 17 H 15 14 Aspartate Amino Transf (AST/SGOT) 22 Band Neutrophils % 5.0 Basophils # Basophils % Blood Morphology Comment Blood Urea Nitrogen 41 H 40 H 38 H Calcium Level 7.1 L 7.3 L 7.2 L Carbon Dioxide Level 18 L 20 L 19 L Chloride Level 118 H 117 H 116 H Creatinine 1.27 H 1.18 H 1.16 H Differential Comment MANUAL DIFF Direct Bilirubin 0.00 Eosinophils # Eosinophils % Globulin 2.30 Glucose Level 99 91 94 Hematocrit 27.6 L Hemoglobin 9.1 L Indirect Bilirubin 0.0 Lymphocytes # 0.5 L Lymphocytes % 2.0 L Mean Corpuscular Hemoglobin 31.1 Mean Corpuscular Hemoglobin Concent 32.9 Mean Corpuscular Volume 94.7 Mean Platelet Volume 10.8 H Monocytes # 1.3 H Monocytes % 5.0 Neutrophils # 22.2 H Neutrophils % 88.0 H Nucleated Red Blood Cells # Nucleated Red Blood Cells % Platelet Count 205 Potassium Level 2.8 *L 3.1 L 3.2 L Red Blood Count 2.92 L Red Cell Distribution Width 18.3 H Sodium Level 150 H 149 H 146 H Total Bilirubin 0.0 L Total Protein 4.1 L Troponin I 0.310 *H 0.247 *H White Blood Count 25.2 H Creatine Kinase 50 Creatine Kinase Index 6.9 Creatinine Kinase MB (Mass) 3.45 H Test 03/21/16 00:28 03/21/16 05:00 03/21/16 05:24 Creatine Kinase 60 Creatine Kinase Index 6.2 Creatinine Kinase MB (Mass) 3.71 H Troponin I 0.238 *H Arterial Blood HCO3 17.3 L Arterial Blood Base Excess -5.0 L Arterial Blood Oxygen Saturation 97.0 Kaiden Test ACCEPTAB Arterial Blood Gas Puncture Site Right Radial Arterial Blood Carboxyhemoglobin 0.3 Arterial Blood Date Drawn 03/21/2016 5:25:00 AM Arterial Blood Methemoglobin 0.5 Arterial Blood pCO2 (Temp correct) 23.2 L Arterial Blood pH (Temp corrected) 7.491 H Arterial Blood pO2 (Temp corrected) 100.1 H Blood Gas A-a O2 Differential 158.4 H Blood Gas Actual Respiration Rate 17 Blood Gas Inspiratory Pressure 28.0 Blood Gas Low PEEP Setting 5.0 Blood Gas Modality VENT - AC Blood Gas Notified Time 03/21/2016 5:48:00 AM Blood Gas Notified Whom RTR Blood Gas Respiration Rate 14.0 Blood Gas Specimen Source Blood arterial Blood Gas Temperature 37.0 Blood Gas Tidal Volume 500.0 FiO2 40.0 Oxyhemoglobin Percent 96.2 Total Hemoglobin 8.3 L Alanine Aminotransferase (ALT/SGPT) 27 Albumin 2.1 L Albumin/Globulin Ratio 0.95 Alkaline Phosphatase 116 Anion Gap 18 H Aspartate Amino Transf (AST/SGOT) 29 Basophils # 0.1 Basophils % 0.5 Blood Morphology Comment Blood Urea Nitrogen 37 H Calcium Level 7.2 L Carbon Dioxide Level 18 L Chloride Level 115 H Creatinine 1.08 H Direct Bilirubin 0.00 Eosinophils # 0.1 Eosinophils % 0.9 Globulin 2.20 Glucose Level 83 Hematocrit 26.9 L Hemoglobin 8.6 L Indirect Bilirubin 0.0 Lymphocytes # 0.9 Lymphocytes % 6.4 L Mean Corpuscular Hemoglobin 30.5 Mean Corpuscular Hemoglobin Concent 32.1 Mean Corpuscular Volume 95.1 Mean Platelet Volume 11.7 H Monocytes # 0.7 Monocytes % 4.9 Neutrophils # 12.9 H Neutrophils % 87.3 H Nucleated Red Blood Cells # 0.0 Nucleated Red Blood Cells % 0.0 Platelet Count 212 Potassium Level 3.7 Red Blood Count 2.83 L Red Cell Distribution Width 18.1 H Sodium Level 147 H Total Bilirubin 0.0 L Total Protein 4.3 L White Blood Count 14.8 #H Medications Medications Current Medications Lorazepam (Ativan) 0.5 mg Q6H PRN IV ANXIETY Last administered on 03/17/16 18: 50; Admin Dose 0.5 MG; Start 02/24/16 at 02:00 Ondansetron HCl (Zofran Inj) 4 mg Q6H PRN IV NAUSEA AND/OR VOMITING Last administered on 03/01/16 13:17; Admin Dose 4 MG; Start 02/24/16 at 02:00 Nitroglycerin (Nitroglycerin (Sl Tab) 0.4 Mg) 1 tab Q5M PRN SL CHEST PAIN; Start 02/24/16 at 02:00 Hydralazine HCl (Apresoline) 10 mg Q6H PRN IV SBP > 160 Last administered on 04:35; Admin Dose 10 MG; Start 02/24/16 at 02:00 Labetalol HCl (Labetalol) 10 mg Q6 PRN IV ELEVATED BLOOD PRESSURE; Start at 23:00 Guaifenesin/ Dextromethorphan (Robitussin Dm Liquid Cup) 5 ml Q6 PRN PO COUGH Last administered on 02/27/16 18:12; Admin Dose 5 ML; Start 02/24/16 at 23:00 Nicotine (Nicoderm 21 Mg/ 24hr) 1 patch DAILY TRANSDERM Last administered on 08:58; Admin Dose 1 PATCH; Start 02/26/16 at 09:00 Levothyroxine Sodium (Synthroid) 25 mcg DAILY@06 PO Last administered on 05:57; Admin Dose 25 MCG; Start 02/28/16 at 06:00 Hydromorphone HCl (Dilaudid) 0.5 mg Q3 PRN IV PAIN Last administered on 13:15; Admin Dose 0.5 MG; Start 03/02/16 at 17:00 Heparin Sodium (Porcine) (Heparin (5000 Units/0.5 ml)) 5,000 unit BID SC Last administered on 03/21/16 09:06; Admin Dose 5,000 UNIT; Start 03/02/16 at 21:30 Dicyclomine HCl (Bentyl) 10 mg BID PO Last administered on 03/21/16 08:57; Admin Dose 10 MG; Start 03/15/16 at 21:00 Metronidazole (Flagyl) 500 mg Q8 PO Last administered on 03/21/16 05:57; Admin Dose 500 MG; Start 03/16/16 at 22:00 Verapamil HCl (Verapamil) 5 mg Q6H PRN IV ELEVATED HEART RATE Last administered on 03/17/16 23:45; Admin Dose 5 MG; Start 03/17/16 at 23:30 Zolpidem Tartrate (Ambien) 5 mg HS PRN PO INSOMNIA Last administered on 23:56; Admin Dose 5 MG; Start 03/17/16 at 23:30 Metoprolol Tartrate (Lopressor) 5 mg Q4H PRN IV ELEVATED HEART RATE Last administered on 03/18/16 01:41; Admin Dose 5 MG; Start 03/18/16 at 01:30 Acetaminophen 650 mg 650 mg Q6H PRN PO PAIN AND OR ELEVATED TEMP Last administered on 03/19/16 01:18; Admin Dose 650 MG; Start 03/18/16 at 23:30 Meropenem 100 ml @ 200 mls/hr Q12 IVPB Last administered on 03/20/16 21:19; Admin Dose 200 MLS/HR; Start 03/19/16 at 09:00 Fluconazole/ Sodium Chloride 50 ml @ 50 mls/hr Q24H IVPB Last administered on 08:57; Admin Dose 50 MLS/HR; Start 03/19/16 at 08:30 Propofol 100 ml @ 1.692 mls/ hr Q12H IV Last administered on 03/21/16 05:56; Admin Dose 10.829 MLS/HR; Start 03/20/16 at 01:00 Vancomycin HCl 750 mg/Sodium Chloride 150 ml @ 75 mls/hr Q24H IVPB Last administered on 03/21/16 00:32; Admin Dose 75 MLS/HR; Start 03/21/16 at 01:00 Sodium Bicarbonate/ Dextrose (Na Bicarb/D5W) 1,100 ml @ 75 mls/hr [id number] IV Last administered on 03/21/16 06:32; Admin Dose 75 MLS/HR; Start 03/20/16 at 13: 00 Hydralazine HCl (Apresoline) 10 mg Q8 PO Last administered on 03/21/16 05:57; Admin Dose 10 MG; Start 03/20/16 at 14:00 Aspirin (Aspirin) 81 mg DAILY NGT Last administered on 03/21/16 08:57; Admin Dose 81 MG; Start 03/21/16 at 09:00 Furosemide (Lasix) 20 mg DAILY IV Last administered on 03/21/16 08:57; Admin Dose 20 MG; Start 03/21/16 at 09:00 Pantoprazole (Protonix Iv) 40 mg DAILY@06 IV Last administered on 03/21/16 05: 57; Admin Dose 40 MG; Start 03/21/16 at 06:00 HOWARD LEVY MD Mar 21, 2016 09:31
[2016-03-21] MEDS: MEROPENEM 500 MG/100 ML (PMX) 100 ML IVPB SCH ×2 (10:11→20:42)
--- NOTE | 2016-03-21 11:03 | CONS ---
Date/Time of Note Date/Time of Note DATE: 03/21/16 TIME: 11:00 Assessment/Plan Assessment/Plan Additional Assessment/Plan 1. Positive troponin, assess significance in the setting of renal failure, status post code blue with respiratory arrest - more alert now, better overall - family stil lnot decided on extent of care, Full CARE for now 2. Cardiomyopathy with decreased left ventricular ejection fraction, last being approximately 35% by echo- will monitor clinically. 3. Abnormal electrocardiogram, assess for acute coronary syndrome. 4. Hypotension, borderline- better now, con't to follow 5. Anemia. 6. Renal failure - con't resp care. 7. Hypokalemia. 8. Hypernatremia 9. Hemothorax status post VATS with decortication- CT surgery follows 10. Status post pulmonary arrest. 11. Anemia. 12. Lower extremity edema, severe. Consultation Date/Type/Reason Admit Date/Time Feb 24, 2016 at 04:06 Initial Consult Date Type of Consultation: Pulmonary/critical care 24 HR Interval Summary Free Text/Dictation No acute change - more awake - family at bedside - happy with care - no significant ectopy on tele noted. ROS: No fever, no chills, no nausea, no vomiting, no diarrhea/constipation No recent weight changes No chest pain, no PND, no orthopnea No dizziness, blurred vision No thirst, no heat or cold intolerance (per nurse) Exam/Review of Systems Vital Signs Vitals Vital Signs Date Time Temp Pulse Resp B/P Pulse Ox O2 Delivery O2 Flow Rate FiO2 03/21/16 08:40 30 03/21/16 08:30 65 17 122/52 100 03/21/16 08:00 97.7 Mechanical Ventilator 03/19/16 16:05 2.0 Intake and Output 03/20/16 03/20/16 03/21/16 15:00 23:00 07:00 Intake Total 791.47 ml 1268.6 ml 1096.6 ml Output Total 125 ml 230 ml 230 ml Balance 666.47 ml 1038.6 ml 866.6 ml Exam General: WN/WD/NAD, AOx 2-3 HEENT: Unicetric/atraumatic/EOMI (follows commands) NECK: JVD elevated, no thyromegaly, intub Lymph: no lymphadenopathy HEART: regular with no S3, II/ systolic murmur at apex LUNGS: Coarse sounds ABD: soft, NT, ND, +BS : Intact Neuro: non focal SKIN: chronic changes EXT: trace edema Results Result Diagram: 03/21/1652303/21/16 0524 Results 24 hrs Laboratory Tests Test 03/20/16 11:25 03/20/16 15:20 03/20/16 18:25 03/20/16 22:00 Alanine Aminotransferase (ALT/SGPT) 35 Albumin 1.8 L Albumin/Globulin Ratio 0.78 Alkaline Phosphatase 105 Anion Gap 17 H 15 14 Aspartate Amino Transf (AST/SGOT) 22 Band Neutrophils % 5.0 Basophils # Basophils % Blood Morphology Comment Blood Urea Nitrogen 41 H 40 H 38 H Calcium Level 7.1 L 7.3 L 7.2 L Carbon Dioxide Level 18 L 20 L 19 L Chloride Level 118 H 117 H 116 H Creatinine 1.27 H 1.18 H 1.16 H Differential Comment MANUAL DIFF Direct Bilirubin 0.00 Eosinophils # Eosinophils % Globulin 2.30 Glucose Level 99 91 94 Hematocrit 27.6 L Hemoglobin 9.1 L Indirect Bilirubin 0.0 Lymphocytes # 0.5 L Lymphocytes % 2.0 L Mean Corpuscular Hemoglobin 31.1 Mean Corpuscular Hemoglobin Concent 32.9 Mean Corpuscular Volume 94.7 Mean Platelet Volume 10.8 H Monocytes # 1.3 H Monocytes % 5.0 Neutrophils # 22.2 H Neutrophils % 88.0 H Nucleated Red Blood Cells # Nucleated Red Blood Cells % Platelet Count 205 Potassium Level 2.8 *L 3.1 L 3.2 L Red Blood Count 2.92 L Red Cell Distribution Width 18.3 H Sodium Level 150 H 149 H 146 H Total Bilirubin 0.0 L Total Protein 4.1 L Troponin I 0.310 *H 0.247 *H White Blood Count 25.2 H Creatine Kinase 50 Creatine Kinase Index 6.9 Creatinine Kinase MB (Mass) 3.45 H Test 03/21/16 00:28 03/21/16 05:00 03/21/16 05:24 Creatine Kinase 60 Creatine Kinase Index 6.2 Creatinine Kinase MB (Mass) 3.71 H Troponin I 0.238 *H Arterial Blood HCO3 17.3 L Arterial Blood Base Excess -5.0 L Arterial Blood Oxygen Saturation 97.0 Kaiden Test ACCEPTAB Arterial Blood Gas Puncture Site Right Radial Arterial Blood Carboxyhemoglobin 0.3 Arterial Blood Date Drawn 03/21/2016 5:25:00 AM Arterial Blood Methemoglobin 0.5 Arterial Blood pCO2 (Temp correct) 23.2 L Arterial Blood pH (Temp corrected) 7.491 H Arterial Blood pO2 (Temp corrected) 100.1 H Blood Gas A-a O2 Differential 158.4 H Blood Gas Actual Respiration Rate 17 Blood Gas Inspiratory Pressure 28.0 Blood Gas Low PEEP Setting 5.0 Blood Gas Modality VENT - AC Blood Gas Notified Time 03/21/2016 5:48:00 AM Blood Gas Notified Whom RTR Blood Gas Respiration Rate 14.0 Blood Gas Specimen Source Blood arterial Blood Gas Temperature 37.0 Blood Gas Tidal Volume 500.0 FiO2 40.0 Oxyhemoglobin Percent 96.2 Total Hemoglobin 8.3 L Alanine Aminotransferase (ALT/SGPT) 27 Albumin 2.1 L Albumin/Globulin Ratio 0.95 Alkaline Phosphatase 116 Anion Gap 18 H Aspartate Amino Transf (AST/SGOT) 29 Basophils # 0.1 Basophils % 0.5 Blood Morphology Comment Blood Urea Nitrogen 37 H Calcium Level 7.2 L Carbon Dioxide Level 18 L Chloride Level 115 H Creatinine 1.08 H Direct Bilirubin 0.00 Eosinophils # 0.1 Eosinophils % 0.9 Globulin 2.20 Glucose Level 83 Hematocrit 26.9 L Hemoglobin 8.6 L Indirect Bilirubin 0.0 Lymphocytes # 0.9 Lymphocytes % 6.4 L Mean Corpuscular Hemoglobin 30.5 Mean Corpuscular Hemoglobin Concent 32.1 Mean Corpuscular Volume 95.1 Mean Platelet Volume 11.7 H Monocytes # 0.7 Monocytes % 4.9 Neutrophils # 12.9 H Neutrophils % 87.3 H Nucleated Red Blood Cells # 0.0 Nucleated Red Blood Cells % 0.0 Platelet Count 212 Potassium Level 3.7 Red Blood Count 2.83 L Red Cell Distribution Width 18.1 H Sodium Level 147 H Total Bilirubin 0.0 L Total Protein 4.3 L White Blood Count 14.8 #H Medications Medications Current Medications Lorazepam (Ativan) 0.5 mg Q6H PRN IV ANXIETY Last administered on 03/17/16 18: 50; Admin Dose 0.5 MG; Start 02/24/16 at 02:00 Ondansetron HCl (Zofran Inj) 4 mg Q6H PRN IV NAUSEA AND/OR VOMITING Last administered on 03/01/16 13:17; Admin Dose 4 MG; Start 02/24/16 at 02:00 Nitroglycerin (Nitroglycerin (Sl Tab) 0.4 Mg) 1 tab Q5M PRN SL CHEST PAIN; Start 02/24/16 at 02:00 Hydralazine HCl (Apresoline) 10 mg Q6H PRN IV SBP > 160 Last administered on 04:35; Admin Dose 10 MG; Start 02/24/16 at 02:00 Labetalol HCl (Labetalol) 10 mg Q6 PRN IV ELEVATED BLOOD PRESSURE; Start at 23:00 Guaifenesin/ Dextromethorphan (Robitussin Dm Liquid Cup) 5 ml Q6 PRN PO COUGH Last administered on 02/27/16 18:12; Admin Dose 5 ML; Start 02/24/16 at 23:00 Nicotine (Nicoderm 21 Mg/ 24hr) 1 patch DAILY TRANSDERM Last administered on 08:58; Admin Dose 1 PATCH; Start 02/26/16 at 09:00 Levothyroxine Sodium (Synthroid) 25 mcg DAILY@06 PO Last administered on 05:57; Admin Dose 25 MCG; Start 02/28/16 at 06:00 Hydromorphone HCl (Dilaudid) 0.5 mg Q3 PRN IV PAIN Last administered on 13:15; Admin Dose 0.5 MG; Start 03/02/16 at 17:00 Heparin Sodium (Porcine) (Heparin (5000 Units/0.5 ml)) 5,000 unit BID SC Last administered on 03/21/16 09:06; Admin Dose 5,000 UNIT; Start 03/02/16 at 21:30 Dicyclomine HCl (Bentyl) 10 mg BID PO Last administered on 03/21/16 08:57; Admin Dose 10 MG; Start 03/15/16 at 21:00 Metronidazole (Flagyl) 500 mg Q8 PO Last administered on 03/21/16 05:57; Admin Dose 500 MG; Start 03/16/16 at 22:00 Verapamil HCl (Verapamil) 5 mg Q6H PRN IV ELEVATED HEART RATE Last administered on 03/17/16 23:45; Admin Dose 5 MG; Start 03/17/16 at 23:30 Zolpidem Tartrate (Ambien) 5 mg HS PRN PO INSOMNIA Last administered on 23:56; Admin Dose 5 MG; Start 03/17/16 at 23:30 Metoprolol Tartrate (Lopressor) 5 mg Q4H PRN IV ELEVATED HEART RATE Last administered on 03/18/16 01:41; Admin Dose 5 MG; Start 03/18/16 at 01:30 Acetaminophen 650 mg 650 mg Q6H PRN PO PAIN AND OR ELEVATED TEMP Last administered on 03/19/16 01:18; Admin Dose 650 MG; Start 03/18/16 at 23:30 Meropenem 100 ml @ 200 mls/hr Q12 IVPB Last administered on 03/21/16 10:11; Admin Dose 200 MLS/HR; Start 03/19/16 at 09:00 Fluconazole/ Sodium Chloride 50 ml @ 50 mls/hr Q24H IVPB Last administered on 08:57; Admin Dose 50 MLS/HR; Start 03/19/16 at 08:30 Propofol 100 ml @ 1.692 mls/ hr Q12H IV Last administered on 03/21/16 05:56; Admin Dose 10.829 MLS/HR; Start 03/20/16 at 01:00 Vancomycin HCl 750 mg/Sodium Chloride 150 ml @ 75 mls/hr Q24H IVPB Last administered on 03/21/16 00:32; Admin Dose 75 MLS/HR; Start 03/21/16 at 01:00 Sodium Bicarbonate/ Dextrose (Na Bicarb/D5W) 1,100 ml @ 75 mls/hr [id number] IV Last administered on 03/21/16 06:32; Admin Dose 75 MLS/HR; Start 03/20/16 at 13: 00 Hydralazine HCl (Apresoline) 10 mg Q8 PO Last administered on 03/21/16 05:57; Admin Dose 10 MG; Start 03/20/16 at 14:00 Aspirin (Aspirin) 81 mg DAILY NGT Last administered on 03/21/16 08:57; Admin Dose 81 MG; Start 03/21/16 at 09:00 Furosemide (Lasix) 20 mg DAILY IV Last administered on 03/21/16 08:57; Admin Dose 20 MG; Start 03/21/16 at 09:00 Pantoprazole (Protonix Iv) 40 mg DAILY@06 IV Last administered on 03/21/16t 05: 57; Admin Dose 40 MG; Start 03/21/16 at 06:00 GLADYS QUEZADA MD Mar 21, 2016 11:03
[2016-03-21] MEDS: HYDROmorphONE 1 MG/ML SYG IV PRN (11:12)
--- NOTE | 2016-03-21 12:58 | CONS ---
Date/Time of Note Date/Time of Note DATE: 03/21/16 TIME: 12:54 Assessment/Plan Assessment/Plan Chief Complaint/Hosp Course SUBJECTIVE: No acute events, intubated, sedated, no fevers, nad MICROBIOLOGY: The patient had blood culture on 03/18/2016 that is negative. Catheter tip culture pending. Wound culture of her left foot pending. INDWELLINGS: She has peripheral IV, endotracheal tube, NG tube, Francois. ANTIMICROBIALS: 1. Vancomycin. 2. Merrem . 3. Fluconazole. 4. Flagyl. PHYSICAL EXAMINATION: GENERAL: Fragile, elderly woman who is lying comfortably in bed. HEENT: Head atraumatic, normocephalic. Sclerae anicteric. Buccal mucosa dry. NECK: Supple, trachea midline. CHEST: Rise symmetrical. Breath sounds diminished at the bases. HEART: S1, S2. ABDOMEN: Soft, distended. Bowel tones hypoactive. EXTREMITIES: With bilateral edema, left lower extremity looks much better with decreased erythema. ASSESSMENT: 1. Sepsis. 2. Acute respiratory failure, status post intubated, rule out aspiration event. 3. Bilateral pleural effusions status post thoracentesis a couple days ago with cultures being negative. 4. Severe pancolitis, patient remains on Flagyl. 5. Left lower extremity cellulitis, resolving. 6. Status post Ann glabrata urinary tract infection. 7. Status post cervical spine injury. 8. Status post diagnostic laparoscopy on 03/01/2016. PLAN: The patient remains hemodynamically stable. WBC tracing down, cultures are pending. Her left lower extremity looks much better. Continue abx, follow recommendations of specialist. DW staff DW family at bedside Problems: Consultation Date/Type/Reason Admit Date/Time Feb 24, 2016 at 04:06 Type of Consultation: ID 24 HR Interval Summary Subjective hx not possible: pt non-verbal Exam/Review of Systems Vital Signs Vitals Vital Signs Date Time Temp Pulse Resp B/P Pulse Ox O2 Delivery O2 Flow Rate FiO2 03/21/16 12:00 68 22 138/62 100 Mechanical Ventilator 03/21/16 11:30 98.2 03/21/16 08:40 30 03/19/16 16:05 2.0 Intake and Output 03/20/16 03/20/16 03/21/16 15:00 23:00 07:00 Intake Total 791.47 ml 1268.6 ml 1096.6 ml Output Total 125 ml 230 ml 230 ml Balance 666.47 ml 1038.6 ml 866.6 ml Results Result Diagram: 03/21/16 0524 03/21/16 0524 Results 24 hrs Laboratory Tests Test 03/20/16 15:20 03/20/16 18:25 03/20/16 22:00 03/21/16 00:28 Anion Gap 15 14 Blood Urea Nitrogen 40 H 38 H Calcium Level 7.3 L 7.2 L Carbon Dioxide Level 20 L 19 L Chloride Level 117 H 116 H Creatinine 1.18 H 1.16 H Glucose Level 91 94 Potassium Level 3.1 L 3.2 L Sodium Level 149 H 146 H Creatine Kinase 50 60 Creatine Kinase Index 6.9 6.2 Creatinine Kinase MB (Mass) 3.45 H 3.71 H Troponin I 0.247 *H 0.238 *H Test 03/21/16 05:00 03/21/16 05:24 Arterial Blood HCO3 17.3 L Arterial Blood Base Excess -5.0 L Arterial Blood Oxygen Saturation 97.0 Kaiden Test ACCEPTAB Arterial Blood Gas Puncture Site Right Radial Arterial Blood Carboxyhemoglobin 0.3 Arterial Blood Date Drawn 03/21/2016 5:25:00 AM Arterial Blood Methemoglobin 0.5 Arterial Blood pCO2 (Temp correct) 23.2 L Arterial Blood pH (Temp corrected) 7.491 H Arterial Blood pO2 (Temp corrected) 100.1 H Blood Gas A-a O2 Differential 158.4 H Blood Gas Actual Respiration Rate 17 Blood Gas Inspiratory Pressure 28.0 Blood Gas Low PEEP Setting 5.0 Blood Gas Modality VENT - AC Blood Gas Notified Time 03/21/2016 5:48:00 AM Blood Gas Notified Whom RTR Blood Gas Respiration Rate 14.0 Blood Gas Specimen Source Blood arterial Blood Gas Temperature 37.0 Blood Gas Tidal Volume 500.0 FiO2 40.0 Oxyhemoglobin Percent 96.2 Total Hemoglobin 8.3 L Alanine Aminotransferase (ALT/SGPT) 27 Albumin 2.1 L Albumin/Globulin Ratio 0.95 Alkaline Phosphatase 116 Anion Gap 18 H Aspartate Amino Transf (AST/SGOT) 29 Basophils # 0.1 Basophils % 0.5 Blood Morphology Comment Blood Urea Nitrogen 37 H Calcium Level 7.2 L Carbon Dioxide Level 18 L Chloride Level 115 H Creatinine 1.08 H Direct Bilirubin 0.00 Eosinophils # 0.1 Eosinophils % 0.9 Globulin 2.20 Glucose Level 83 Hematocrit 26.9 L Hemoglobin 8.6 L Indirect Bilirubin 0.0 Lymphocytes # 0.9 Lymphocytes % 6.4 L Mean Corpuscular Hemoglobin 30.5 Mean Corpuscular Hemoglobin Concent 32.1 Mean Corpuscular Volume 95.1 Mean Platelet Volume 11.7 H Monocytes # 0.7 Monocytes % 4.9 Neutrophils # 12.9 H Neutrophils % 87.3 H Nucleated Red Blood Cells # 0.0 Nucleated Red Blood Cells % 0.0 Platelet Count 212 Potassium Level 3.7 Red Blood Count 2.83 L Red Cell Distribution Width 18.1 H Sodium Level 147 H Total Bilirubin 0.0 L Total Protein 4.3 L White Blood Count 14.8 #H Medications Medications Current Medications Lorazepam (Ativan) 0.5 mg Q6H PRN IV ANXIETY Last administered on 03/17/16 18: 50; Admin Dose 0.5 MG; Start 02/24/16 at 02:00 Ondansetron HCl (Zofran Inj) 4 mg Q6H PRN IV NAUSEA AND/OR VOMITING Last administered on 03/01/16 13:17; Admin Dose 4 MG; Start 02/24/16 at 02:00 Nitroglycerin (Nitroglycerin (Sl Tab) 0.4 Mg) 1 tab Q5M PRN SL CHEST PAIN; Start 02/24/16 at 02:00 Hydralazine HCl (Apresoline) 10 mg Q6H PRN IV SBP > 160 Last administered on 04:35; Admin Dose 10 MG; Start 02/24/16 at 02:00 Labetalol HCl (Labetalol) 10 mg Q6 PRN IV ELEVATED BLOOD PRESSURE; Start at 23:00 Guaifenesin/ Dextromethorphan (Robitussin Dm Liquid Cup) 5 ml Q6 PRN PO COUGH Last administered on 02/27/16 18:12; Admin Dose 5 ML; Start 02/24/16 at 23:00 Nicotine (Nicoderm 21 Mg/ 24hr) 1 patch DAILY TRANSDERM Last administered on 08:58; Admin Dose 1 PATCH; Start 02/26/16 at 09:00 Levothyroxine Sodium (Synthroid) 25 mcg DAILY@06 PO Last administered on 05:57; Admin Dose 25 MCG; Start 02/28/16 at 06:00 Hydromorphone HCl (Dilaudid) 0.5 mg Q3 PRN IV PAIN Last administered on 11:12; Admin Dose 0.5 MG; Start 03/02/16 at 17:00 Heparin Sodium (Porcine) (Heparin (5000 Units/0.5 ml)) 5,000 unit BID SC Last administered on 03/21/16 09:06; Admin Dose 5,000 UNIT; Start 03/02/16 at 21:30 Dicyclomine HCl (Bentyl) 10 mg BID PO Last administered on 03/21/16 08:57; Admin Dose 10 MG; Start 03/15/16 at 21:00 Metronidazole (Flagyl) 500 mg Q8 PO Last administered on 03/21/16 05:57; Admin Dose 500 MG; Start 03/16/16 at 22:00 Verapamil HCl (Verapamil) 5 mg Q6H PRN IV ELEVATED HEART RATE Last administered on 03/17/16 23:45; Admin Dose 5 MG; Start 03/17/16 at 23:30 Zolpidem Tartrate (Ambien) 5 mg HS PRN PO INSOMNIA Last administered on 23:56; Admin Dose 5 MG; Start 03/17/16 at 23:30 Metoprolol Tartrate (Lopressor) 5 mg Q4H PRN IV ELEVATED HEART RATE Last administered on 03/18/16 01:41; Admin Dose 5 MG; Start 03/18/16 at 01:30 Acetaminophen 650 mg 650 mg Q6H PRN PO PAIN AND OR ELEVATED TEMP Last administered on 03/19/16 01:18; Admin Dose 650 MG; Start 03/18/16 at 23:30 Meropenem 100 ml @ 200 mls/hr Q12 IVPB Last administered on 03/21/16 10:11; Admin Dose 200 MLS/HR; Start 03/19/16 at 09:00 Fluconazole/ Sodium Chloride 50 ml @ 50 mls/hr Q24H IVPB Last administered on 08:57; Admin Dose 50 MLS/HR; Start 03/19/16 at 08:30 Propofol 100 ml @ 1.692 mls/ hr Q12H IV Last administered on 03/21/16 05:56; Admin Dose 10.829 MLS/HR; Start 03/20/16 at 01:00 Vancomycin HCl 750 mg/Sodium Chloride 150 ml @ 75 mls/hr Q24H IVPB Last administered on 03/21/16 00:32; Admin Dose 75 MLS/HR; Start 03/21/16 at 01:00 Sodium Bicarbonate/ Dextrose (Na Bicarb/D5W) 1,100 ml @ 75 mls/hr [id number] IV Last administered on 03/21/16 06:32; Admin Dose 75 MLS/HR; Start 03/20/16 at 13: 00 Hydralazine HCl (Apresoline) 10 mg Q8 PO Last administered on 03/21/16 05:57; Admin Dose 10 MG; Start 03/20/16 at 14:00 Aspirin (Aspirin) 81 mg DAILY NGT Last administered on 03/21/16 08:57; Admin Dose 81 MG; Start 03/21/16 at 09:00 Furosemide (Lasix) 20 mg DAILY IV Last administered on 03/21/16 08:57; Admin Dose 20 MG; Start 03/21/16 at 09:00 Pantoprazole (Protonix Iv) 40 mg DAILY@06 IV Last administered on 03/21/16 05: 57; Admin Dose 40 MG; Start 03/21/16 at 06:00 PHOEBE BANDA NP Mar 21, 2016 12:58
[2016-03-21] MEDS: COLLAGENASE 30 GM TUBE TOP SCH (15:52)
[2016-03-21] MEDS: hydrALAzine 20 MG INJ IV PRN (16:56)
[2016-03-21 17:21] LABS: Allen Test ACCEPTAB; Blood Gas PS 10; MODE VENT - CPAP
[2016-03-21 18:05] LABS: AADO2 Arterial 98.9 mmHg (7.0-24.0); Arterial Base Excess -1.9 mmol/L (-3.0-3); Arterial COHb 0.3 % (0.0-3.0); Arterial Fraction of Oxyhgb 95.8 % (93.0-99.0); Arterial MetHb 0.2 % (0.0-1.5); Arterial Total Hemglobin 10.1 g/dl (12.0-18.0)
--- NOTE | 2016-03-21 19:06 | PN ---
Date/Time of Note Date/Time of Note DATE: 03/21/16 TIME: 19:03 Assessment/Plan Lines/Catheters IV Catheter Type (from [facility]): Saline Lock Francois in Place (from [facility]): Yes Assessment/Plan Chief Complaint/Hosp Course 1. Abdominal pain, with CT diagnosis of pancolitis, with significant leukocytosis and bandemia. s/p Lap exploration and only small mid transverse with min mottling. Bowel function. -Antibiotics per ID -Judicious fluid management 2. Sepsis, multifactorial (pancolitis ? ischemic, urinary tract infection, pulmonary infiltrates, bacteremia). Leukocytosis ? etiology (aspiration vs other) -Antibiotic therapy. -Judicious fluid management. -Close monitoring. 3. Renal insufficiency secondary to sepsis. Improving Cr -Continue judicious fluid management. -Avoid nephrotoxic agents as possible. 4. Anemia, with recent hemothorax requiring VATS decortication. -Transfuse as needed. 5. Hypoalbuminemia. -Eventual nutritional optimization. 6. Hypernatremia -Correct with fluid management. 7. Hypertension. -Nutritional and medication optimization. 8. Hypothyroidism. -Replace hormone. 9. Hemopneumothorax, status post VATS. CT removed -followed by CT surgery. 10. Cervical spine injury, being maintained in brace by neurosurgery. 11. Respiratory distress/code s/p re-intubation. ? Aspiration PNA -pulmonary toilette -abx -ventilator management Thank you, Problems: Subjective 24 Hr Interval Summary Leukocytosis improving. Re-intubated 2nd resp distress/code. No f/c. No v. Bowel function. On feeds. Min bloated. No cough. No sz. No rash. Exam/Review of Systems Vital Signs Vitals Vital Signs Date Time Temp Pulse Resp B/P Pulse Ox O2 Delivery O2 Flow Rate FiO2 03/21/16 18:30 84 24 140/59 100 03/21/16 18:00 Mechanical Ventilator 03/21/16 18:00 30 03/21/16 15:30 97.8 03/19/16 16:05 2.0 Intake and Output 03/20/16 03/20/16 03/21/16 15:00 23:00 07:00 Intake Total 791.47 ml 1268.6 ml 1096.6 ml Output Total 125 ml 230 ml 230 ml Balance 666.47 ml 1038.6 ml 866.6 ml Exam Free Text/Dictation GENERAL: NAD. Intubated HEENT: Pupils equal, reactive. No scleral icterus. Mucous membranes are somewhat dry. NECK: No crepitus. No JVD. PULMONARY: Normal respiratory effort ABDOMEN: No rebound/guarding/rigidity. Distended. EXTREMITIES: Trace edema. VASCULAR: Capillary refill is 2 seconds. NEUROLOGIC: Ventilated SKIN: No rashes/jaundice. PSYCH: Ventilated Results Result Diagram: 03/21/16 0524 03/21/16 0524 CHRISTIANO JENNINGS MD Mar 21, 2016 19:05
--- NOTE | 2016-03-21 19:53 | CONS ---
Date/Time of Note Date/Time of Note DATE: 03/21/16 TIME: 19:52 Assessment/Plan Assessment/Plan Additional Assessment/Plan Additional Assessment/Plan Impression: 1. Pancolitis: likely ischemic. c.difficile negative, no infarct on laparotomy exam, culture, wbc in stool negative. 2. Fracture of the ribs. 3. Pneumothorax status post chest tube placement. 4. History of nicotine addiction. 5. Cervical spine injury. 6. History of fall. 7. Peripheral arterial disease. 8. Mild elevation of alkaline phosphatase, most probably related to alcoholic liver disease. 9. Anemia. 10. dysphagia on tube feeds 11.s/p exploratory laparotomy,no bowel resection 12.respiratory failure 13. renal failure,improving [address] shows anasarca ascites, pleural effusion,colitis worsening 16 respiratory failure,on Vent,second time 17 leucocytosis,trending down PLAN: 1. Continue antibiotics and anti-fungal per ID 2. continue tube feeds with nephro 3. antibiotics as per ID 4, ng tube feeding 5. Continue supportive care per primary and other consultants 6.albumin and diuretic daily for few days 6.Bentyl 7.thoracocentesis,VATS Plan continue all supportive care ng tube feeding Consultation Date/Type/Reason Admit Date/Time Feb 24, 2016 at 04:06 Type of Consultation: ID 24 HR Interval Summary Constitutional: improved Exam/Review of Systems Vital Signs Vitals Vital Signs Date Time Temp Pulse Resp B/P Pulse Ox O2 Delivery O2 Flow Rate FiO2 03/21/16 18:30 84 24 140/59 100 03/21/16 18:00 Mechanical Ventilator 03/21/16 18:00 30 03/21/16 15:30 97.8 03/19/16 16:05 2.0 Intake and Output 03/20/16 03/20/16 03/21/16 15:00 23:00 07:00 Intake Total 791.47 ml 1268.6 ml 1096.6 ml Output Total 125 ml 230 ml 230 ml Balance 666.47 ml 1038.6 ml 866.6 ml Exam Constitutional: alert, oriented, well developed Psych: nl mood/affect, no complaints Head: atraumatic, normocephalic Eyes: EOMI, PERRL, nl conjunctiva, nl lids, nl sclera ENMT: nl external ears & nose, nl lips & teeth, nl nasal mucosa & septum Neck: non-tender, supple Respiratory: clear to auscultation, normal air movement Cardiovascular: nl pulses, regular rate and rhythm Gastrointestinal: nl liver, spleen, non-tender, soft Musculoskeletal: nl extremities to inspection, nl gait and stance Extremities: normal pulses Neurological: [employer] II-XII intact, nl mental status, nl speech, nl strength Skin: nl turgor, No rash or lesions Lymph: nl lymph nodes Results Result Diagram: 03/21/1652303/21/16523 Results 24 hrs Laboratory Tests Test 03/20/16 22:00 03/21/16 00:28 03/21/16 05:00 03/21/16 05:24 Anion Gap 14 18 H Blood Urea Nitrogen 38 H 37 H Calcium Level 7.2 L 7.2 L Carbon Dioxide Level 19 L 18 L Chloride Level 116 H 115 H Creatinine 1.16 H 1.08 H Glucose Level 94 83 Potassium Level 3.2 L 3.7 Sodium Level 146 H 147 H Creatine Kinase 60 Creatine Kinase Index 6.2 Creatinine Kinase MB (Mass) 3.71 H Troponin I 0.238 *H Arterial Blood HCO3 17.3 L Arterial Blood Base Excess -5.0 L Arterial Blood Oxygen Saturation 97.0 Kaiden Test ACCEPTAB Arterial Blood Gas Puncture Site Right Radial Arterial Blood Carboxyhemoglobin 0.3 Arterial Blood Date Drawn 03/21/2016 5:25:00 AM Arterial Blood Methemoglobin 0.5 Arterial Blood pCO2 (Temp correct) 23.2 L Arterial Blood pH (Temp corrected) 7.491 H Arterial Blood pO2 (Temp corrected) 100.1 H Blood Gas A-a O2 Differential 158.4 H Blood Gas Actual Respiration Rate 17 Blood Gas Inspiratory Pressure 28.0 Blood Gas Low PEEP Setting 5.0 Blood Gas Modality VENT - AC Blood Gas Notified Time 03/21/2016 5:48:00 AM Blood Gas Notified Whom RTR Blood Gas Respiration Rate 14.0 Blood Gas Specimen Source Blood arterial Blood Gas Temperature 37.0 Blood Gas Tidal Volume 500.0 FiO2 40.0 Oxyhemoglobin Percent 96.2 Total Hemoglobin 8.3 L Alanine Aminotransferase (ALT/SGPT) 27 Albumin 2.1 L Albumin/Globulin Ratio 0.95 Alkaline Phosphatase 116 Aspartate Amino Transf (AST/SGOT) 29 Basophils # 0.1 Basophils % 0.5 Blood Morphology Comment Direct Bilirubin 0.00 Eosinophils # 0.1 Eosinophils % 0.9 Globulin 2.20 Hematocrit 26.9 L Hemoglobin 8.6 L Indirect Bilirubin 0.0 Lymphocytes # 0.9 Lymphocytes % 6.4 L Mean Corpuscular Hemoglobin 30.5 Mean Corpuscular Hemoglobin Concent 32.1 Mean Corpuscular Volume 95.1 Mean Platelet Volume 11.7 H Monocytes # 0.7 Monocytes % 4.9 Neutrophils # 12.9 H Neutrophils % 87.3 H Nucleated Red Blood Cells # 0.0 Nucleated Red Blood Cells % 0.0 Platelet Count 212 Red Blood Count 2.83 L Red Cell Distribution Width 18.1 H Total Bilirubin 0.0 L Total Protein 4.3 L White Blood Count 14.8 #H Test 03/21/16 17:00 Arterial Blood HCO3 20.0 L Arterial Blood Base Excess -1.9 Arterial Blood Oxygen Saturation 96.3 Kaiden Test ACCEPTAB Arterial Blood Gas Puncture Site Right Radial Arterial Blood Carboxyhemoglobin 0.3 Arterial Blood Date Drawn 03/21/2016 5:45:39 PM Arterial Blood Methemoglobin 0.2 Arterial Blood pCO2 (Temp correct) 25.2 L Arterial Blood pH (Temp corrected) 7.517 H Arterial Blood pO2 (Temp corrected) 85.4 Blood Gas A-a O2 Differential 98.9 H Blood Gas Actual Respiration Rate 30 Blood Gas Low PEEP Setting 5.0 Blood Gas Modality VENT - CPAP Blood Gas Notified Time 03/21/2016 6:05:00 PM Blood Gas Notified Whom DT Blood Gas Pressure Support 10 Blood Gas Specimen Source Blood arterial Blood Gas Temperature 37.0 FiO2 30.0 Oxyhemoglobin Percent 95.8 Total Hemoglobin 10.1 L Medications Medications Current Medications Lorazepam (Ativan) 0.5 mg Q6H PRN IV ANXIETY Last administered on 03/17/16 18: 50; Admin Dose 0.5 MG; Start 02/24/16 at 02:00 Ondansetron HCl (Zofran Inj) 4 mg Q6H PRN IV NAUSEA AND/OR VOMITING Last administered on 03/01/16 13:17; Admin Dose 4 MG; Start 02/24/16 at 02:00 Nitroglycerin (Nitroglycerin (Sl Tab) 0.4 Mg) 1 tab Q5M PRN SL CHEST PAIN; Start 02/24/16 at 02:00 Hydralazine HCl (Apresoline) 10 mg Q6H PRN IV SBP > 160 Last administered on 16:56; Admin Dose 10 MG; Start 02/24/16 at 02:00 Labetalol HCl (Labetalol) 10 mg Q6 PRN IV ELEVATED BLOOD PRESSURE; Start at 23:00 Guaifenesin/ Dextromethorphan (Robitussin Dm Liquid Cup) 5 ml Q6 PRN PO COUGH Last administered on 02/27/16 18:12; Admin Dose 5 ML; Start 02/24/16 at 23:00 Nicotine (Nicoderm 21 Mg/ 24hr) 1 patch DAILY TRANSDERM Last administered on 08:58; Admin Dose 1 PATCH; Start 02/26/16 at 09:00 Levothyroxine Sodium (Synthroid) 25 mcg DAILY@06 PO Last administered on 05:57; Admin Dose 25 MCG; Start 02/28/16 at 06:00 Hydromorphone HCl (Dilaudid) 0.5 mg Q3 PRN IV PAIN Last administered on 11:12; Admin Dose 0.5 MG; Start 03/02/16 at 17:00 Heparin Sodium (Porcine) (Heparin (5000 Units/0.5 ml)) 5,000 unit BID SC Last administered on 03/21/16 09:06; Admin Dose 5,000 UNIT; Start 03/02/16 at 21:30 Dicyclomine HCl (Bentyl) 10 mg BID PO Last administered on 03/21/16 08:57; Admin Dose 10 MG; Start 03/15/16 at 21:00 Metronidazole (Flagyl) 500 mg Q8 PO Last administered on 03/21/16 14:20; Admin Dose 500 MG; Start 03/16/16 at 22:00 Verapamil HCl (Verapamil) 5 mg Q6H PRN IV ELEVATED HEART RATE Last administered on 03/17/16 23:45; Admin Dose 5 MG; Start 03/17/16 at 23:30 Zolpidem Tartrate (Ambien) 5 mg HS PRN PO INSOMNIA Last administered on 23:56; Admin Dose 5 MG; Start 03/17/16 at 23:30 Metoprolol Tartrate (Lopressor) 5 mg Q4H PRN IV ELEVATED HEART RATE Last administered on 03/18/16 01:41; Admin Dose 5 MG; Start 03/18/16 at 01:30 Acetaminophen 650 mg 650 mg Q6H PRN PO PAIN AND OR ELEVATED TEMP Last administered on 03/19/16 01:18; Admin Dose 650 MG; Start 03/18/16 at 23:30 Meropenem 100 ml @ 200 mls/hr Q12 IVPB Last administered on 03/21/16 10:11; Admin Dose 200 MLS/HR; Start 03/19/16 at 09:00 Fluconazole/ Sodium Chloride 50 ml @ 50 mls/hr Q24H IVPB Last administered on 08:57; Admin Dose 50 MLS/HR; Start 03/19/16 at 08:30 Propofol 100 ml @ 1.692 mls/ hr Q12H IV Last administered on 03/21/16 18:00; Admin Dose 5.076 MLS/HR; Start 03/20/16 at 01:00 Vancomycin HCl 750 mg/Sodium Chloride 150 ml @ 75 mls/hr Q24H IVPB Last administered on 03/21/16 00:32; Admin Dose 75 MLS/HR; Start 03/21/16 at 01:00 Sodium Bicarbonate/ Dextrose (Na Bicarb/D5W) 1,100 ml @ 75 mls/hr [id number] IV Last administered on 03/21/16 06:32; Admin Dose 75 MLS/HR; Start 03/20/16 at 13: 00 Hydralazine HCl (Apresoline) 10 mg Q8 PO Last administered on 03/21/16 14:21; Admin Dose 10 MG; Start 03/20/16 at 14:00 Aspirin (Aspirin) 81 mg DAILY NGT Last administered on 03/21/16 08:57; Admin Dose 81 MG; Start 03/21/16 at 09:00 Furosemide (Lasix) 20 mg DAILY IV Last administered on 03/21/16 08:57; Admin Dose 20 MG; Start 03/21/16 at 09:00 Pantoprazole (Protonix Iv) 40 mg DAILY@06 IV Last administered on 03/21/16 05: 57; Admin Dose 40 MG; Start 03/21/16 at 06:00 Miscellaneous Information (*Rx Drug Level Order Reminder*) 1 ONCE ONCE XX ; Start 03/22/16 at 00:00; Stop 03/22/16 at 00:01 Collagenase (Santyl) 1 applic DAILY TOP Last administered on 03/21/16t 15:52; Admin Dose 1 APPLIC; Start 03/21/16 at 15:00 CHARISSA WILHELM MD Mar 21, 2016 19:52
[2016-03-22] VITALS (53 sets, daily range): BP systolic 68–172; BP diastolic 43–128; PULSE 58–85; RESP 14–25
[2016-03-22] MEDS ORDERED: VANCOMYCIN 750 MG in SOD CHLORIDE 0.9% 150 ML IVPB SCH (01:00)
[2016-03-22] MEDS: PROPOFOL 100 ML IV SCH ×3 (02:14→22:40)
[2016-03-22] MEDS: HYDROmorphONE 1 MG/ML SYG IV PRN (02:14)
[2016-03-22 05:34] LABS: AADO2 Arterial 72.6 mmHg (7.0-24.0); Arterial Base Excess -1.1 mmol/L (-3.0-3); Arterial COHb 0.3 % (0.0-3.0); Arterial Fraction of Oxyhgb 96.5 % (93.0-99.0); Arterial HCO3 21.4 mmol/L (22.0-26.0); Arterial MetHb 0.5 % (0.0-1.5); Arterial Total Hemglobin 10.4 g/dl (12.0-18.0); Blood Gas Mean Airway Pressure 10; MODE VENT - AC
[2016-03-22] MEDS: PANTOPRAZOLE 40 MG INJ IV SCH (05:50)
[2016-03-22] MEDS: LEVOTHYROXINE 25 MCG TAB PO SCH (05:50)
[2016-03-22] MEDS: metroNIDAZOLE 500 MG TAB PO SCH ×3 (05:51→22:45)
[2016-03-22 06:43] LABS: ALBUMIN 1.9 g/dl (3.3-4.9)
[2016-03-22 06:46] LABS: ALBUMIN/GLOBULIN RATIO 0.82; CREATININE 1.02 mg/dl (0.44-1.00); TOTAL PROTEIN 4.2 g/dl (6.1-8.1)
[2016-03-22 06:47] LABS: CALCIUM 6.9 mg/dl (8.4-10.2)
[2016-03-22 06:51] LABS: INR 1.24; PROTIME 15.7 Sec (12.2-14.2); PT RATIO 1.2
[2016-03-22 06:52] LABS: PARTIAL THROMBOPLASTIN TIME 37.7 Sec (25.0-35.0)
[2016-03-22 06:52] LABS: POTASSIUM 2.5 mmol/L (3.5-5.1)
[2016-03-22] MEDS: POTASSIUM CHLORIDE 50 ML IVPB PRN ×3 (06:58→13:05)
--- NOTE | 2016-03-22 08:00 | RADRPT ---
PROCEDURE: XR Chest. CLINICAL INDICATION: Respiratory failure TECHNIQUE: An AP view of the chest was obtained. COMPARISON: Chest x-ray dated 03/21/2016 FINDINGS: The endotracheal tube tip is approximately 2.3 cm above the blaire. The tip of the enteric tube pr ojects over the left upper quadrant. There is prominence of the interstitial markings with small bilateral pleural effusions. No pneum othorax is seen. The cardiomediastinal silhouette is within normal limits for size. Calcifications are seen within the aortic arch. The osseous structures demonstrate senescent changes. IMPRESSION: 1. Findings suggestive of interstitial edema with small bilateral pleural effusions. No significant interval change. 2. Aortic atherosclerosis. 3. Tubes and lines, as described above. RPTAT: HH .Melani Brito MD, MD Date Time Electronically viewed and signed by .Melani Brito MD, on 03/22/2016 08:00 .G/
[2016-03-22] MEDS ORDERED: POTASSIUM CHLORIDE 250 ML IVPB ONE (08:30)
[2016-03-22] MEDS ORDERED: ALBUMIN HUMAN 25% 50 ML IV SCH (08:30)
[2016-03-22] MEDS: FUROSEMIDE 20 MG INJ IV SCH (08:42)
[2016-03-22] MEDS: ASPIRIN 81 MG TAB NGT SCH (08:42)
[2016-03-22] MEDS: NICOTINE (21 MG/24 HR) PATCH TRANSDERM SCH (08:42)
--- NOTE | 2016-03-22 08:42 | CONS ---
Date/Time of Note Date/Time of Note DATE: 03/22/16 TIME: 08:30 Assessment/Plan Assessment/Plan Additional Assessment/Plan Current ventilator settings; assist control of 12, tidal volume of 500, PEEP of 5, 30% FiO2. Assessment and recommendations; 1. Patient initially admitted with bowel obstruction underwent laparotomy. Respiratory failure was successfully extubated several days ago transferred to the medical floor however then again become obtunded and a very brief CPR was done patient required intubation. Next 2. Ongoing colitis. 3. Severe anasarca. 4. History of pneumothorax. 5. Hypothyroidism 6. Hypokalemia. 7. Hypertension. 8. History of COPD. Next 9. Despite absent bowel sounds, patient was handling a tube feeding quite well. Next 10. Mild renal insufficiency. Chest x-ray from today shows significant improvement in right pleural effusion with now essentially clear lung simeon. It has been taken off sedation, is on CPAP mode and is exhibiting adequate weaning parameters. He is completely awake and alert. Family has signed a DNR form. The patient continues to do well on CPAP mode for the next 30 minutes I would recommend extubating her. Meanwhile albumin has been added 100 mL of 25% every 8 hours at least for 3 doses with continuation of IV Lasix. Prognosis is guarded. Consultation Date/Type/Reason Admit Date/Time Feb 24, 2016 at 04:06 Type of Consultation: Pulmonary/critical care 24 HR Interval Summary Free Text/Dictation Patient condition remains critical. Still requiring full ventilator support. However patient has remained hemodynamically stable. General examination; elderly lady, or intubated. Despite being on sedation patient is arousable. No distress noted. Exam/Review of Systems Vital Signs Vitals Vital Signs Date Time Temp Pulse Resp B/P Pulse Ox O2 Delivery O2 Flow Rate FiO2 03/22/16 08:00 97.9 68 24 152/52 100 03/22/16 06:00 Mechanical Ventilator 03/22/16 05:00 30 03/19/16 16:05 2.0 Intake and Output 03/21/16 03/21/16 03/22/16 14:59 22:59 06:59 Intake Total 890.8 ml 822 ml 716 ml Output Total 385 ml 155 ml 180 ml Balance 505.8 ml 667 ml 536 ml Exam H EENT examination; supple neck, no JVD. No lymphadenopathy. Or intubated. No neck masses. No thyromegaly. Chest examination; clear to auscultation bilaterally. S1-S2 audible, no murmurs , regular rate and rhythm. Abdomen examination; protuberant, distended. There is abdominal wall edema present. Bowel sounds are absent. Multiple well-healed surgical scars are present. Extremity examination; 2+ lower extremity pitting edema bilaterally. SNAGGER examination; patient is awake and is mildly sedated. Results Result Diagram: 03/21/16 0524 03/22/16 0530 Results 24 hrs Laboratory Tests Test 03/21/16 17:00 03/22/16 00:03 03/22/16 05:00 03/22/16 05:30 Arterial Blood HCO3 20.0 L 21.4 L Arterial Blood Base Excess -1.9 -1.1 Arterial Blood Oxygen Saturation 96.3 97.3 Kaiden Test ACCEPTAB N/A Arterial Blood Gas Puncture Site Right Radial Right Brachial Arterial Blood Carboxyhemoglobin 0.3 0.3 Arterial Blood Date Drawn 03/21/2016 5:45:39 PM 03/22/2016 5:12:47 AM Arterial Blood Methemoglobin 0.2 0.5 Arterial Blood pCO2 (Temp correct) 25.2 L 28.6 L Arterial Blood pH (Temp corrected) 7.517 H 7.492 H Arterial Blood pO2 (Temp corrected) 85.4 107.7 H Blood Gas A-a O2 Differential 98.9 H 72.6 H Blood Gas Actual Respiration Rate 30 23 Blood Gas Low PEEP Setting 5.0 5.0 Blood Gas Modality VENT - CPAP VENT - AC Blood Gas Notified Time 03/21/2016 6:05:00 PM 03/22/2016 5:33:56 AM Blood Gas Notified Whom DT RTR Blood Gas Pressure Support 10 Blood Gas Specimen Source Blood arterial Blood arterial Blood Gas Temperature 37.0 37.0 FiO2 30.0 30.0 Oxyhemoglobin Percent 95.8 96.5 Total Hemoglobin 10.1 L 10.4 L Vancomycin Level Trough 20.5 *H Blood Gas Inspiratory Pressure 28.0 Blood Gas Mean Airway Pressure 10 Blood Gas Respiration Rate 14.0 Blood Gas Tidal Volume 500.0 Alanine Aminotransferase (ALT/SGPT) 32 Albumin 1.9 L Albumin/Globulin Ratio 0.82 Alkaline Phosphatase 128 H Anion Gap 14 Aspartate Amino Transf (AST/SGOT) 34 Blood Urea Nitrogen 33 H Calcium Level 6.9 L Carbon Dioxide Level 22 Chloride Level 111 H Creatinine 1.02 H Direct Bilirubin 0.00 Globulin 2.30 Glucose Level 93 Indirect Bilirubin 0.0 Potassium Level 2.5 *L Sodium Level 144 Total Bilirubin 0.0 L Total Protein 4.2 L Test 03/22/16 05:31 Activated Partial Thromboplast Time 37.7 H INR International Normalized Ratio 1.24 Prothrombin Time 15.7 H Prothrombin Time Ratio 1.2 Medications Medications Current Medications Lorazepam (Ativan) 0.5 mg Q6H PRN IV ANXIETY Last administered on 03/17/16 18: 50; Admin Dose 0.5 MG; Start 02/24/16 at 02:00 Ondansetron HCl (Zofran Inj) 4 mg Q6H PRN IV NAUSEA AND/OR VOMITING Last administered on 03/01/16 13:17; Admin Dose 4 MG; Start 02/24/16 at 02:00 Nitroglycerin (Nitroglycerin (Sl Tab) 0.4 Mg) 1 tab Q5M PRN SL CHEST PAIN; Start 02/24/16 at 02:00 Hydralazine HCl (Apresoline) 10 mg Q6H PRN IV SBP > 160 Last administered on 16:56; Admin Dose 10 MG; Start 02/24/16 at 02:00 Labetalol HCl (Labetalol) 10 mg Q6 PRN IV ELEVATED BLOOD PRESSURE; Start at 23:00 Guaifenesin/ Dextromethorphan (Robitussin Dm Liquid Cup) 5 ml Q6 PRN PO COUGH Last administered on 02/27/16 18:12; Admin Dose 5 ML; Start 02/24/16 at 23:00 Nicotine (Nicoderm 21 Mg/ 24hr) 1 patch DAILY TRANSDERM Last administered on 08:58; Admin Dose 1 PATCH; Start 02/26/16 at 09:00 Levothyroxine Sodium (Synthroid) 25 mcg DAILY@06 PO Last administered on 05:50; Admin Dose 25 MCG; Start 02/28/16 at 06:00 Hydromorphone HCl (Dilaudid) 0.5 mg Q3 PRN IV PAIN Last administered on 02:14; Admin Dose 0.5 MG; Start 03/02/16 at 17:00 Heparin Sodium (Porcine) (Heparin (5000 Units/0.5 ml)) 5,000 unit BID SC Last administered on 03/21/16 20:49; Admin Dose 5,000 UNIT; Start 03/02/16 at 21:30 Dicyclomine HCl (Bentyl) 10 mg BID PO Last administered on 03/21/16 21:18; Admin Dose 10 MG; Start 03/15/16 at 21:00 Metronidazole (Flagyl) 500 mg Q8 PO Last administered on 03/22/16 05:51; Admin Dose 500 MG; Start 03/16/16 at 22:00 Verapamil HCl (Verapamil) 5 mg Q6H PRN IV ELEVATED HEART RATE Last administered on 03/17/16 23:45; Admin Dose 5 MG; Start 03/17/16 at 23:30 Zolpidem Tartrate (Ambien) 5 mg HS PRN PO INSOMNIA Last administered on 23:56; Admin Dose 5 MG; Start 03/17/16 at 23:30 Metoprolol Tartrate (Lopressor) 5 mg Q4H PRN IV ELEVATED HEART RATE Last administered on 03/18/16 01:41; Admin Dose 5 MG; Start 03/18/16 at 01:30 Acetaminophen 650 mg 650 mg Q6H PRN PO PAIN AND OR ELEVATED TEMP Last administered on 03/19/16 01:18; Admin Dose 650 MG; Start 03/18/16 at 23:30 Meropenem 100 ml @ 200 mls/hr Q12 IVPB Last administered on 03/21/16 20:42; Admin Dose 200 MLS/HR; Start 03/19/16 at 09:00 Fluconazole/ Sodium Chloride 50 ml @ 50 mls/hr Q24H IVPB Last administered on 08:57; Admin Dose 50 MLS/HR; Start 03/19/16 at 08:30 Propofol 100 ml @ 1.692 mls/ hr Q12H IV Last administered on 03/22/16 02:14; Admin Dose 7.445 MLS/HR; Start 03/20/16 at 01:00 Sodium Bicarbonate/ Dextrose (Na Bicarb/D5W) 1,100 ml @ 75 mls/hr [id number] IV Last administered on 03/21/16 20:41; Admin Dose 75 MLS/HR; Start 03/20/16 at 13: 00 Hydralazine HCl (Apresoline) 10 mg Q8 PO Last administered on 03/22/16 05:51; Admin Dose 10 MG; Start 03/20/16 at 14:00 Aspirin (Aspirin) 81 mg DAILY NGT Last administered on 03/21/16 08:57; Admin Dose 81 MG; Start 03/21/16 at 09:00 Furosemide (Lasix) 20 mg DAILY IV Last administered on 03/21/16 08:57; Admin Dose 20 MG; Start 03/21/16 at 09:00 Pantoprazole (Protonix Iv) 40 mg DAILY@06 IV Last administered on 03/22/16 05: 50; Admin Dose 40 MG; Start 03/21/16 at 06:00 Collagenase 1 applic 1 applic DAILY TOP Last administered on 03/21/16 15:52; Admin Dose 1 APPLIC; Start 03/21/16 at 15:00 Vancomycin HCl/ Sodium Chloride (Vancocin/NS) 150 ml @ 75 mls/hr Q36H IVPB ; Start 03/22/16 at 13:00 GAIL SPENCER Mar 22, 2016 08:42
[2016-03-22] MEDS: DICYCLOMINE 10 MG CAP PO SCH ×2 (08:43→21:00)
[2016-03-22] MEDS: FLUCONAZOLE 100 MG/NS (PMX) 50 ML IVPB SCH (08:43)
[2016-03-22] MEDS: HEPARIN 5,000 UNIT/0.5 ML SYG SC SCH ×2 (08:44→21:03)
[2016-03-22 08:45] LABS: BASOPHIL # 0.1 10^3/ul (0.0-0.1); BASOPHILS % 0.6 % (0.0-2.0); EOSINOPHILS # 0.1 10^3/ul (0.0-0.5); EOSINOPHILS % 0.6 % (0.0-7.0); HEMATOCRIT 25.3 % (37.0-47.0); HEMOGLOBIN 8.4 g/dl (12.0-16.0); LYMPHOCYTES # 0.9 10^3/ul (0.8-2.9); LYMPHOCYTES % 8.9 % (15.0-51.0); MEAN CORPUSCULAR VOLUME 94.2 fl (82.0-101.0); MONOCYTE # 0.7 10^3/ul (0.3-0.9); MONOCYTES % 7.3 % (0.0-11.0); NEUTROPHIL # 8.3 10^3/ul (1.6-7.5); NEUTROPHILS % 82.6 % (39.0-77.0); PLATELET COUNT 231 10^3/UL (140-440); RED BLOOD COUNT 2.69 10^6/ul (4.20-5.40); RED CELL DISTRIBUTION WIDTH 18.4 % (11.5-14.5)
[2016-03-22 08:46] LABS: CONDITION 1; LH ANALYZER COMMENTS 1; SUSPECT 1
--- NOTE | 2016-03-22 09:30 | PN ---
Date/Time of Note Date/Time of Note DATE: 03/22/16 TIME: 09:27 Assessment/Plan VTE Prophylaxis VTE Prophylaxis Intervention: heparin Lines/Catheters IV C[facility] Type ([facility] Saline Lock Urinary Cath still in place: Yes Reason Cath still needed: urinary retention, other (indicate) (strict I/o ) Assessment/Plan Assessment/Plan 1. Sepsis. 2. Acute respiratory failure, intubated on ventilator, possible aspiratio pNA 3. Bilateral pleural effusions status post thoracentesis a couple days ago with cultures being negative. 4. Severe pancolitis, patient remains on coverage with Dificid, oral vancomycin and Flagyl. 5. Left lower extremity cellulitis, resolving. 6. Status post Ann glabrata urinary tract infection. 7. Status post cervical spine injury. 8. Status post diagnostic laparoscopy on 03/01/2016. Plan: IV abx, ID following Cardiolgoy consult following patient Vent management as per pulmonary- failed SIMV today BP stable Family meeting done yesterday- explained about pt condition and prognosis, Family made pt DNR and requested hospice care cosnult for hospice at home continue IV bicarbonate drip appreciate other speciality help PICC line requested Heparin for DVT prophylaxis Subjective 24 Hr Interval Summary Free Text/Dictation pt remains intubated, on CPAP trial, BP stable Urine output marginal, family made pt DNR and leaning to hospice care Exam/Review of Systems Vital Signs Vitals Vital Signs Date Time Temp Pulse Resp B/P Pulse Ox O2 Delivery O2 Flow Rate FiO2 03/22/16 08:00 66 03/22/16 08:00 97.9 24 152/52 100 03/22/16 06:00 Mechanical Ventilator 03/22/16 05:00 30 03/19/16 16:05 2.0 Intake and Output 03/21/16 03/21/16 03/22/16 15:00 23:00 07:00 Intake Total 805 ml 904 ml 634 ml Output Total 395 ml 130 ml 155 ml Balance 410 ml 774 ml 479 ml Exam GENERAL: Fragile, intubated on ventilator HEENT: Head atraumatic, normocephalic. Sclerae anicteric. Buccal mucosa dry. NECK: Supple, trachea midline. CHEST: Rise symmetrical. Breath sounds diminished at the bases. HEART: S1, S2. ABDOMEN: Soft, distended. Bowel tones hypoactive. EXTREMITIES: With bilateral edema, left lower extremity looks much better with decreased erythema. Results Result Diagram: 03/22/16 0530 03/22/16 0530 Results 24 hrs Laboratory Tests Test 03/21/16 17:00 03/22/16 00:03 03/22/16 05:00 03/22/16 05:30 Arterial Blood HCO3 20.0 L 21.4 L Arterial Blood Base Excess -1.9 -1.1 Arterial Blood Oxygen Saturation 96.3 97.3 Kaiden Test ACCEPTAB N/A Arterial Blood Gas Puncture Site Right Radial Right Brachial Arterial Blood Carboxyhemoglobin 0.3 0.3 Arterial Blood Date Drawn 03/21/2016 5:45:39 PM 03/22/2016 5:12:47 AM Arterial Blood Methemoglobin 0.2 0.5 Arterial Blood pCO2 (Temp correct) 25.2 L 28.6 L Arterial Blood pH (Temp corrected) 7.517 H 7.492 H Arterial Blood pO2 (Temp corrected) 85.4 107.7 H Blood Gas A-a O2 Differential 98.9 H 72.6 H Blood Gas Actual Respiration Rate 30 23 Blood Gas Low PEEP Setting 5.0 5.0 Blood Gas Modality VENT - CPAP VENT - AC Blood Gas Notified Time 03/21/2016 6:05:00 PM 03/22/2016 5:33:56 AM Blood Gas Notified Whom DT RTR Blood Gas Pressure Support 10 Blood Gas Specimen Source Blood arterial Blood arterial Blood Gas Temperature 37.0 37.0 FiO2 30.0 30.0 Oxyhemoglobin Percent 95.8 96.5 Total Hemoglobin 10.1 L 10.4 L Vancomycin Level Trough 20.5 *H Blood Gas Inspiratory Pressure 28.0 Blood Gas Mean Airway Pressure 10 Blood Gas Respiration Rate 14.0 Blood Gas Tidal Volume 500.0 Alanine Aminotransferase (ALT/SGPT) 32 Albumin 1.9 L Albumin/Globulin Ratio 0.82 Alkaline Phosphatase 128 H Anion Gap 14 Aspartate Amino Transf (AST/SGOT) 34 Basophils # 0.1 Basophils % 0.6 Blood Morphology Comment Blood Urea Nitrogen 33 H Calcium Level 6.9 L Carbon Dioxide Level 22 Chloride Level 111 H Creatinine 1.02 H Direct Bilirubin 0.00 Eosinophils # 0.1 Eosinophils % 0.6 Globulin 2.30 Glucose Level 93 Hematocrit 25.3 L Hemoglobin 8.4 L Indirect Bilirubin 0.0 Lymphocytes # 0.9 Lymphocytes % 8.9 L Mean Corpuscular Hemoglobin 31.0 Mean Corpuscular Hemoglobin Concent 33.0 Mean Corpuscular Volume 94.2 Mean Platelet Volume 11.0 H Monocytes # 0.7 Monocytes % 7.3 Neutrophils # 8.3 H Neutrophils % 82.6 H Nucleated Red Blood Cells # 0.0 Nucleated Red Blood Cells % 0.0 Platelet Count 231 Potassium Level 2.5 *L Red Blood Count 2.69 L Red Cell Distribution Width 18.4 H Sodium Level 144 Total Bilirubin 0.0 L Total Protein 4.2 L White Blood Count 10.0 # Test 03/22/16 05:31 Activated Partial Thromboplast Time 37.7 H INR International Normalized Ratio 1.24 Prothrombin Time 15.7 H Prothrombin Time Ratio 1.2 Medications Medications Current Medications Lorazepam (Ativan) 0.5 mg Q6H PRN IV ANXIETY Last administered on 03/17/16 18: 50; Admin Dose 0.5 MG; Start 02/24/16 at 02:00 Ondansetron HCl (Zofran Inj) 4 mg Q6H PRN IV NAUSEA AND/OR VOMITING Last administered on 03/01/16 13:17; Admin Dose 4 MG; Start 02/24/16 at 02:00 Nitroglycerin (Nitroglycerin (Sl Tab) 0.4 Mg) 1 tab Q5M PRN SL CHEST PAIN; Start 02/24/16 at 02:00 Hydralazine HCl (Apresoline) 10 mg Q6H PRN IV SBP > 160 Last administered on 16:56; Admin Dose 10 MG; Start 02/24/16 at 02:00 Labetalol HCl (Labetalol) 10 mg Q6 PRN IV ELEVATED BLOOD PRESSURE; Start at 23:00 Guaifenesin/ Dextromethorphan (Robitussin Dm Liquid Cup) 5 ml Q6 PRN PO COUGH Last administered on 02/27/16 18:12; Admin Dose 5 ML; Start 02/24/16 at 23:00 Nicotine (Nicoderm 21 Mg/ 24hr) 1 patch DAILY TRANSDERM Last administered on 08:42; Admin Dose 1 PATCH; Start 02/26/16 at 09:00 Levothyroxine Sodium (Synthroid) 25 mcg DAILY@06 PO Last administered on 05:50; Admin Dose 25 MCG; Start 02/28/16 at 06:00 Hydromorphone HCl (Dilaudid) 0.5 mg Q3 PRN IV PAIN Last administered on 02:14; Admin Dose 0.5 MG; Start 03/02/16 at 17:00 Heparin Sodium (Porcine) (Heparin (5000 Units/0.5 ml)) 5,000 unit BID SC Last administered on 03/22/16 08:44; Admin Dose 5,000 UNIT; Start 03/02/16 at 21:30 Dicyclomine HCl (Bentyl) 10 mg BID PO Last administered on 03/22/16 08:43; Admin Dose 10 MG; Start 03/15/16 at 21:00 Metronidazole (Flagyl) 500 mg Q8 PO Last administered on 03/22/16 05:51; Admin Dose 500 MG; Start 03/16/16 at 22:00 Verapamil HCl (Verapamil) 5 mg Q6H PRN IV ELEVATED HEART RATE Last administered on 03/17/16 23:45; Admin Dose 5 MG; Start 03/17/16 at 23:30 Zolpidem Tartrate (Ambien) 5 mg HS PRN PO INSOMNIA Last administered on 23:56; Admin Dose 5 MG; Start 03/17/16 at 23:30 Metoprolol Tartrate (Lopressor) 5 mg Q4H PRN IV ELEVATED HEART RATE Last administered on 03/18/16 01:41; Admin Dose 5 MG; Start 03/18/16 at 01:30 Acetaminophen 650 mg 650 mg Q6H PRN PO PAIN AND OR ELEVATED TEMP Last administered on 03/19/16 01:18; Admin Dose 650 MG; Start 03/18/16 at 23:30 Meropenem 100 ml @ 200 mls/hr Q12 IVPB Last administered on 03/21/16 20:42; Admin Dose 200 MLS/HR; Start 03/19/16 at 09:00 Fluconazole/ Sodium Chloride 50 ml @ 50 mls/hr Q24H IVPB Last administered on 08:43; Admin Dose 50 MLS/HR; Start 03/19/16 at 08:30 Propofol 100 ml @ 1.692 mls/ hr Q12H IV Last administered on 03/22/16 02:14; Admin Dose 7.445 MLS/HR; Start 03/20/16 at 01:00 Sodium Bicarbonate/ Dextrose (Na Bicarb/D5W) 1,100 ml @ 75 mls/hr [id number] IV Last administered on 03/21/16 20:41; Admin Dose 75 MLS/HR; Start 03/20/16 at 13: 00 Hydralazine HCl (Apresoline) 10 mg Q8 PO Last administered on 03/22/16 05:51; Admin Dose 10 MG; Start 03/20/16 at 14:00 Aspirin (Aspirin) 81 mg DAILY NGT Last administered on 03/22/16 08:42; Admin Dose 81 MG; Start 03/21/16 at 09:00 Furosemide (Lasix) 20 mg DAILY IV Last administered on 03/22/16 08:42; Admin Dose 20 MG; Start 03/21/16 at 09:00 Pantoprazole (Protonix Iv) 40 mg DAILY@06 IV Last administered on 03/22/16 05: 50; Admin Dose 40 MG; Start 03/21/16 at 06:00 Collagenase 1 applic 1 applic DAILY TOP Last administered on 03/21/16 15:52; Admin Dose 1 APPLIC; Start 03/21/16 at 15:00 Vancomycin HCl 750 mg/Sodium Chloride 150 ml @ 75 mls/hr Q36H IVPB ; Start 03/22 at 13:00 Potassium Chloride 250 ml @ 62.5 mls/hr ONCE ONCE IVPB ; Start 03/22/16 at 08: 30; Stop 03/22/16 at 12:29 Albumin Human (Albumin Human 25%) 50 ml @ 100 mls/hr Q8H IV ; Start 03/22/16 at 08:30; Stop 03/23/16 at 00:59 HOWARD LEVY MD Mar 22, 2016 09:30
[2016-03-22] MEDS ORDERED: LIDOCAINE 1% (MDV) 20 ML INJ SC ONE (10:00)
[2016-03-22 10:43] LABS: AADO2 Arterial 55.2 mmHg (7.0-24.0); Allen Test ACCEPTAB; Arterial Base Excess -0.2 mmol/L (-3.0-3); Arterial COHb 0.2 % (0.0-3.0); Arterial Fraction of Oxyhgb 97.3 % (93.0-99.0); Arterial HCO3 22.5 mmol/L (22.0-26.0); Arterial MetHb 0.4 % (0.0-1.5); Arterial Total Hemglobin 10.4 g/dl (12.0-18.0); Blood Gas PS 10; MODE VENT - CPAP
--- NOTE | 2016-03-22 12:01 | CONS ---
Date/Time of Note Date/Time of Note DATE: 03/22/16 TIME: 11:56 Assessment/Plan Assessment/Plan Chief Complaint/Hosp Course IMPRESSION: 1. Positive troponin, assess significance in the setting of renal failure, status post code blue with respiratory arrest.-slowly downtrending 2. Cardiomyopathy with decreased left ventricular ejection fraction/CHF- systolic acute on chronic. last EF being approximately 35% by echo. 3. Abnormal electrocardiogram, assess for acute coronary syndrome. 4. Hypotension-now improved with HTN 5. Anemia. 6. Renal failure-improving 7. Hypokalemia. 8. Hypernatremia-improved 9. Hemothorax status post VATS with decortication. 10. Status post pulmonary arrest. 11. Anemia. 12. Lower extremity edema. Recc: -tele -serial ecg's -Continue gentle lasix diuresis daily -Continue abx's and f/u cx data -Replete KCL as you are doing -Increase hydralazine and start low dose BB as tolerated given positive troponin Problems: Consultation Date/Type/Reason Admit Date/Time Feb 24, 2016 at 04:06 Initial Consult Date 03/20/16 Type of Consultation: Cardiology Reason for Consultation Positive troponin Referring Provider: HOWARD LEVY MD Exam/Review of Systems Vital Signs Vitals Vital Signs Date Time Temp Pulse Resp B/P Pulse Ox O2 Delivery O2 Flow Rate FiO2 03/22/16 11:28 84 24 100 03/22/16 08:00 97.9 152/52 03/22/16 06:00 Mechanical Ventilator 03/22/16 05:00 30 03/19/16 16:05 2.0 Intake and Output 03/21/16 03/21/16 03/22/16 15:00 23:00 07:00 Intake Total 805 ml 904 ml 634 ml Output Total 395 ml 130 ml 155 ml Balance 410 ml 774 ml 479 ml Exam Review of Systems: CONSTITUTIONAL: No fevers, chills. PULMONARY: intubated CARDIOVASCULAR: No obvious chest pain/palpitations GASTROINTESTINAL: No nausea/vomiting. GENITOURINARY: No hematuria/dysuria. MUSCULOSKELETAL: No obvious myagias/arthalgias. PSYCHIATRIC: The patient denies depression. NEUROLOGIC: sedated Constitutional: alert Psych: no complaints Head: normocephalic ENMT: mucosa pink and moist Neck: jvd (8-9 cm water), supple Respiratory: diminished breath sounds (at bases/B) Cardiovascular: regular rate and rhythm Gastrointestinal: non-tender, soft Musculoskeletal: muscle tone (normal) Extremities: edema (bilateral) Neurological: other (No focal deficits) Results Result Diagram: 03/22/16 0530 03/22/16 0530 Results 24 hrs Laboratory Tests Test 03/21/16 17:00 03/22/16 00:03 03/22/16 05:00 03/22/16 05:30 Arterial Blood HCO3 20.0 L 21.4 L Arterial Blood Base Excess -1.9 -1.1 Arterial Blood Oxygen Saturation 96.3 97.3 [place] Test ACCEPTAB N/A Arterial Blood Gas Puncture Site Right Radial Right Brachial Arterial Blood Carboxyhemoglobin 0.3 0.3 Arterial Blood Date Drawn 03/21/2016 5:45:39 PM 03/22/2016 5:12:47 AM Arterial Blood Methemoglobin 0.2 0.5 Arterial Blood pCO2 (Temp correct) 25.2 L 28.6 L Arterial Blood pH (Temp corrected) 7.517 H 7.492 H Arterial Blood pO2 (Temp corrected) 85.4 107.7 H Blood Gas A-a O2 Differential 98.9 H 72.6 H Blood Gas Actual Respiration Rate 30 23 Blood Gas Low PEEP Setting 5.0 5.0 Blood Gas Modality VENT - CPAP VENT - AC Blood Gas Notified Time 03/21/2016 6:05:00 PM 03/22/2016 5:33:56 AM Blood Gas Notified Whom DT RTR Blood Gas Pressure Support 10 Blood Gas Specimen Source Blood arterial Blood arterial Blood Gas Temperature 37.0 37.0 FiO2 30.0 30.0 Oxyhemoglobin Percent 95.8 96.5 Total Hemoglobin 10.1 L 10.4 L Vancomycin Level Trough 20.5 *H Blood Gas Inspiratory Pressure 28.0 Blood Gas Mean Airway Pressure 10 Blood Gas Respiration Rate 14.0 Blood Gas Tidal Volume 500.0 Alanine Aminotransferase (ALT/SGPT) 32 Albumin 1.9 L Albumin/Globulin Ratio 0.82 Alkaline Phosphatase 128 H Anion Gap 14 Aspartate Amino Transf (AST/SGOT) 34 Basophils # 0.1 Basophils % 0.6 Blood Morphology Comment Blood Urea Nitrogen 33 H Calcium Level 6.9 L Carbon Dioxide Level 22 Chloride Level 111 H Creatinine 1.02 H Direct Bilirubin 0.00 Eosinophils # 0.1 Eosinophils % 0.6 Globulin 2.30 Glucose Level 93 Hematocrit 25.3 L Hemoglobin 8.4 L Indirect Bilirubin 0.0 Lymphocytes # 0.9 Lymphocytes % 8.9 L Mean Corpuscular Hemoglobin 31.0 Mean Corpuscular Hemoglobin Concent 33.0 Mean Corpuscular Volume 94.2 Mean Platelet Volume 11.0 H Monocytes # 0.7 Monocytes % 7.3 Neutrophils # 8.3 H Neutrophils % 82.6 H Nucleated Red Blood Cells # 0.0 Nucleated Red Blood Cells % 0.0 Platelet Count 231 Potassium Level 2.5 *L Red Blood Count 2.69 L Red Cell Distribution Width 18.4 H Sodium Level 144 Total Bilirubin 0.0 L Total Protein 4.2 L White Blood Count 10.0 # Test 03/22/16 05:31 03/22/16 09:28 Activated Partial Thromboplast Time 37.7 H INR International Normalized Ratio 1.24 Prothrombin Time 15.7 H Prothrombin Time Ratio 1.2 Arterial Blood HCO3 22.5 Arterial Blood Base Excess -0.2 Arterial Blood Oxygen Saturation 97.9 Kaiden Test ACCEPTAB Arterial Blood Gas Puncture Site Right Radial Arterial Blood Carboxyhemoglobin 0.2 Arterial Blood Date Drawn 03/22/2016 10:20:56 AM Arterial Blood Methemoglobin 0.4 Arterial Blood pCO2 (Temp correct) 30.2 L Arterial Blood pH (Temp corrected) 7.491 H Arterial Blood pO2 (Temp corrected) 123.2 H Blood Gas A-a O2 Differential 55.2 H Blood Gas Actual Respiration Rate 24 Blood Gas Low PEEP Setting 5.0 Blood Gas Modality VENT - CPAP Blood Gas Notified Time 03/22/2016 10:43:53 AM Blood Gas Notified Whom JLD Blood Gas Pressure Support 10 Blood Gas Specimen Source Blood arterial Blood Gas Temperature 37.0 FiO2 30.0 Oxyhemoglobin Percent 97.3 Total Hemoglobin 10.4 L Medications Medications Current Medications Lorazepam (Ativan) 0.5 mg Q6H PRN IV ANXIETY Last administered on 03/17/16 18: 50; Admin Dose 0.5 MG; Start 02/24/16 at 02:00 Ondansetron HCl (Zofran Inj) 4 mg Q6H PRN IV NAUSEA AND/OR VOMITING Last administered on 03/01/16 13:17; Admin Dose 4 MG; Start 02/24/16 at 02:00 Nitroglycerin (Nitroglycerin (Sl Tab) 0.4 Mg) 1 tab Q5M PRN SL CHEST PAIN; Start 02/24/16 at 02:00 Hydralazine HCl (Apresoline) 10 mg Q6H PRN IV SBP > 160 Last administered on 16:56; Admin Dose 10 MG; Start 02/24/16 at 02:00 Labetalol HCl (Labetalol) 10 mg Q6 PRN IV ELEVATED BLOOD PRESSURE; Start at 23:00 Guaifenesin/ Dextromethorphan (Robitussin Dm Liquid Cup) 5 ml Q6 PRN PO COUGH Last administered on 02/27/16 18:12; Admin Dose 5 ML; Start 02/24/16 at 23:00 Nicotine (Nicoderm 21 Mg/ 24hr) 1 patch DAILY TRANSDERM Last administered on 08:42; Admin Dose 1 PATCH; Start 02/26/16 at 09:00 Levothyroxine Sodium (Synthroid) 25 mcg DAILY@06 PO Last administered on 05:50; Admin Dose 25 MCG; Start 02/28/16 at 06:00 Hydromorphone HCl (Dilaudid) 0.5 mg Q3 PRN IV PAIN Last administered on 02:14; Admin Dose 0.5 MG; Start 03/02/16 at 17:00 Heparin Sodium (Porcine) (Heparin (5000 Units/0.5 ml)) 5,000 unit BID SC Last administered on 03/22/16 08:44; Admin Dose 5,000 UNIT; Start 03/02/16 at 21:30 Dicyclomine HCl (Bentyl) 10 mg BID PO Last administered on 03/22/16 08:43; Admin Dose 10 MG; Start 03/15/16 at 21:00 Metronidazole (Flagyl) 500 mg Q8 PO Last administered on 03/22/16 05:51; Admin Dose 500 MG; Start 03/16/16 at 22:00 Verapamil HCl (Verapamil) 5 mg Q6H PRN IV ELEVATED HEART RATE Last administered on 03/17/16 23:45; Admin Dose 5 MG; Start 03/17/16 at 23:30 Zolpidem Tartrate (Ambien) 5 mg HS PRN PO INSOMNIA Last administered on 23:56; Admin Dose 5 MG; Start 03/17/16 at 23:30 Metoprolol Tartrate (Lopressor) 5 mg Q4H PRN IV ELEVATED HEART RATE Last administered on 03/18/16 01:41; Admin Dose 5 MG; Start 03/18/16 at 01:30 Acetaminophen 650 mg 650 mg Q6H PRN PO PAIN AND OR ELEVATED TEMP Last administered on 03/19/16 01:18; Admin Dose 650 MG; Start 03/18/16 at 23:30 Meropenem 100 ml @ 200 mls/hr Q12 IVPB Last administered on 03/21/16 20:42; Admin Dose 200 MLS/HR; Start 03/19/16 at 09:00 Fluconazole/ Sodium Chloride 50 ml @ 50 mls/hr Q24H IVPB Last administered on 08:43; Admin Dose 50 MLS/HR; Start 03/19/16 at 08:30 Propofol 100 ml @ 1.692 mls/ hr Q12H IV Last administered on 03/22/16 02:14; Admin Dose 7.445 MLS/HR; Start 03/20/16 at 01:00 Sodium Bicarbonate/ Dextrose (Na Bicarb/D5W) 1,100 ml @ 50 mls/hr Q22H IV Last administered on 03/21/16 20:41; Admin Dose 75 MLS/HR; Start 03/20/16 at 13: 00 Hydralazine HCl (Apresoline) 10 mg Q8 PO Last administered on 03/22/16 05:51; Admin Dose 10 MG; Start 03/20/16 at 14:00 Aspirin (Aspirin) 81 mg DAILY NGT Last administered on 03/22/16 08:42; Admin Dose 81 MG; Start 03/21/16 at 09:00 Furosemide (Lasix) 20 mg DAILY IV Last administered on 03/22/16 08:42; Admin Dose 20 MG; Start 03/21/16 at 09:00 Pantoprazole (Protonix Iv) 40 mg DAILY@06 IV Last administered on 03/22/16 05: 50; Admin Dose 40 MG; Start 03/21/16 at 06:00 Collagenase 1 applic 1 applic DAILY TOP Last administered on 03/21/16 15:52; Admin Dose 1 APPLIC; Start 03/21/16 at 15:00 Vancomycin HCl 750 mg/Sodium Chloride 150 ml @ 75 mls/hr Q36H IVPB ; Start 03/22 at 13:00 Potassium Chloride 250 ml @ 62.5 mls/hr ONCE ONCE IVPB ; Start 03/22/16 at 08: 30; Stop 03/22/16 at 12:29 Albumin Human (Albumin Human 25%) 50 ml @ 100 mls/hr Q8H IV ; Start 03/22/16 at 08:30; Stop 03/23/16 at 00:59 KORINA OCONNOR Mar 22, 2016 12:01
--- NOTE | 2016-03-22 12:26 | RADRPT ---
PROCEDURE: XR Chest. CLINICAL INDICATION: PICC line catheter placement. TECHNIQUE: Single frontal view of the chest was obtained COMPARISON: Chest x-ray 03/22/2016 06:17 a.m. FINDINGS: The heart is enlarged with vascular calcifications in the aortic arch. The PICC line catheter enter s see of the left arm with its tip in the superior vena cava. There is no evidence of pneumothorax. An NG tube is noted distal to the GE junction. There are parahilar infiltrates which are unchange d. There are small pleural effusions which are stable. IMPRESSION: 1. Satisfactory position of PICC line catheter entering via the left arm with its tip in the superio r vena cava. 2. No evidence of pneumothorax. 3. Cardiomegaly with mild bony venous obstruction, interstitial pulmonary edema and small pleural e ffusions which are unchanged. 4. Atherosclerosis and aortic arch. RPTAT:AAJJ Physician Shayna Date Time Electronically viewed and signed by Jorge Mckeon Physician on 03/22/2016 12:26 [facility]/
--- NOTE | 2016-03-22 13:02 | RADRPT ---
PROCEDURE: XR Chest. CLINICAL INDICATION: PICC line catheter placement. TECHNIQUE: Single frontal view of the chest was obtained COMPARISON: Chest x-ray 03/22/2016 12:11 p.m. FINDINGS: Since the prior study the PICC line catheter was repositioned and is now straightening of the major between the superior vena cava and right atrium. There are bilateral pleural effusions. The heart remains mildly enlarged. Pulmonary ounce tear is equilibrated. The endotracheal tube and NG tube r emain in good position. The vast calcifications in the aortic arch in osteophytes in the thoracic s pine. IMPRESSION: 1. Interval repositioning of a PICC line catheter which is now straightening of the its tip in the s uperior vena cava. 2. Mild heart failure with interstitial pulmonary edema and bilateral pleural effusions which is un changed. 3. Satisfactory positioning of the endotracheal tube and NG tube. RPTAT:AAJJ Physician Shayna Date Time Electronically viewed and signed by Jorge Mckeon Physician on 03/22/2016 13:01 [facility]/
[2016-03-22] MEDS: SODIUM BICARBONATE (IV ADD) 100 MEQ in DEXTROSE 5% 1,000 ML IV SCH (13:04)
[2016-03-22] MEDS: MEROPENEM 500 MG/100 ML (PMX) 100 ML IVPB SCH ×2 (13:06→21:00)
[2016-03-22] MEDS: VANCOMYCIN 750 MG in SOD CHLORIDE 0.9% 150 ML IVPB SCH (13:19)
--- NOTE | 2016-03-22 13:53 | RADRPT ---
PROCEDURE: Ultrasound guidance for placement of needle in left upper extremity vein. CLINICAL INDICATION: PICC placement. TECHNIQUE: Limited sonography of the left upper extremity was performed. Ultrasound images were recorded and st ored in the patient's medical record. COMPARISON: Chest radiograph of the same day. FINDINGS: The ultrasound images demonstrate a patent left upper extremity vein. The PICC line was inserted by the PICC line nurse. IMPRESSION: 1. Ultrasound guidance for a needle placement in a left upper extremity vein. 2. The visualized right upper extremity vein is patent. RPTAT: QQ .Carlton Apple MD, Date Time Electronically viewed and signed by .Carlton Apple MD, on 03/22/2016 13:52 .N/
--- NOTE | 2016-03-22 15:43 | PN ---
DATE: 03/22/2016 SUBJECTIVE: Patient is awake, comfortable on vent. No fevers overnight. Family at bedside. VITAL SIGNS: Temperature 97.9, pulse 72, respirations 18, blood pressure 143/54, saturation 100 on 30 FIO2. LABORATORY: WBC today 10, H and H 8.4 and 25.3, platelets 231, neutrophils 82.6, no bands. BUN 33, creatinine 1.02. MICROBIOLOGY: Repeat blood cultures remain negative. Urine culture ordered twice; however, results are not in the computer. DIAGNOSTICS: Chest x-ray revealed interstitial edema with small bilateral pleural effusions. INDWELLINGS: The patient has PICC line placed this morning, endotracheal tube, NG tube, Francois. ANTIMICROBIALS: 1. Vancomycin. 2. Meropenem. 3. Diflucan. 4. Flagyl. PHYSICAL EXAMINATION: GENERAL: This is a chronically ill-appearing, fragile, elderly woman who is awake and comfortable o n vent. HEENT: Head atraumatic, normocephalic. Sclerae anicteric. Buccal mucosa dry. NECK: Supple, trachea midline. CHEST: Rise symmetrical. Breath sounds clear. HEART: S1, S2. ABDOMEN: Soft, bowel tones present. EXTREMITIES: With bilateral edema, left lower extremity erythema is improving. ASSESSMENT: 1. Sepsis, resolving. 2. Acute respiratory failure, possibly aspiration event. 3. Pancolitis. 4. Resolving left lower extremity cellulitis. 5. Bilateral pleural effusions status post thoracentesis with cultures being negative. 6. History of pneumothorax and cervical spine injury secondary to fall. PLAN: The patient remains stable. She is being followed by multiple consultants. We will continue her on current antimicrobials. Continue vent management and weaning trials as per pulmonary. Dictated By: PHOEBE [employer] COUNSELOR for JUAN HUGHES MD NI/NTS Conf#: [id number] DID#: [id number]
[2016-03-22] MEDS: hydrALAzine 20 MG INJ IV PRN (16:28)
[2016-03-22] MEDS ORDERED: SOD CHLORIDE 0.9% 100 ML ONE (16:37)
[2016-03-22] MEDS: COLLAGENASE 30 GM TUBE TOP SCH (16:48)
--- NOTE | 2016-03-22 17:51 | CONS ---
Date/Time of Note Date/Time of Note DATE: 03/22/16 TIME: 17:50 Assessment/Plan Assessment/Plan Additional Assessment/Plan Impression: 1. Pancolitis: likely ischemic. c.difficile negative, no infarct on laparotomy exam, culture, wbc in stool negative. 2. Fracture of the ribs. 3. Pneumothorax status post chest tube placement. 4. History of nicotine addiction. 5. Cervical spine injury. 6. History of fall. 7. Peripheral arterial disease. 8. Mild elevation of alkaline phosphatase, most probably related to alcoholic liver disease. 9. Anemia. 10. dysphagia on tube feeds 11.s/p exploratory laparotomy,no bowel resection 12.respiratory failure 13. renal failure,improving [address] shows anasarca ascites, pleural effusion,colitis worsening 16 respiratory failure,on Vent,second time 17 leucocytosis,trending down PLAN: 1. Continue antibiotics and anti-fungal per ID 2. continue tube feeds with nephro 3. antibiotics as per ID 4, ng tube feeding 5. Continue supportive care per primary and other consultants 6.albumin and diuretic daily for few days 6.Bentyl 7.thoracocentesis,VATS Plan continue all supportive care ng tube feeding,isosource 30 cc/hr. Consultation Date/Type/Reason Admit Date/Time Feb 24, 2016 at 04:06 Type of Consultation: Cardiology Referring Provider: HOWARD LEVY MD 24 HR Interval Summary Constitutional: improved Exam/Review of Systems Vital Signs Vitals Vital Signs Date Time Temp Pulse Resp B/P Pulse Ox O2 Delivery O2 Flow Rate FiO2 03/22/16 17:32 88 23 100 30 03/22/16 13:30 143/54 03/22/16 12:00 97.9 03/22/16 06:00 Mechanical Ventilator 03/19/16 16:05 2.0 Intake and Output 03/21/16 03/21/16 03/22/16 15:00 23:00 07:00 Intake Total 805 ml 904 ml 634 ml Output Total 395 ml 130 ml 175 ml Balance 410 ml 774 ml 459 ml Exam Constitutional: alert, oriented, well developed Psych: nl mood/affect, no complaints Head: atraumatic, normocephalic Eyes: EOMI, PERRL, nl conjunctiva, nl lids, nl sclera ENMT: nl external ears & nose, nl lips & teeth, nl nasal mucosa & septum Neck: non-tender, supple Respiratory: clear to auscultation, normal air movement Cardiovascular: nl pulses, regular rate and rhythm Gastrointestinal: nl liver, spleen, non-tender, soft Musculoskeletal: nl extremities to inspection, nl gait and stance Extremities: normal pulses Neurological: ELECTRONIC PAGINATION SYSTEM OPERATOR II-XII intact, nl mental status, nl speech, nl strength Skin: nl turgor, No rash or lesions Lymph: nl lymph nodes Results Result Diagram: 03/22/1630 03/22/16 0530 Results 24 hrs Laboratory Tests Test 03/22/16 00:03 03/22/16 05:00 03/22/16 05:30 03/22/16 05:31 Vancomycin Level Trough 20.5 *H Arterial Blood HCO3 21.4 L Arterial Blood Base Excess -1.1 Arterial Blood Oxygen Saturation 97.3 Kaiden Test N/A Arterial Blood Gas Puncture Site Right Brachial Arterial Blood Carboxyhemoglobin 0.3 Arterial Blood Date Drawn 03/22/2016 5:12:47 AM Arterial Blood Methemoglobin 0.5 Arterial Blood pCO2 (Temp correct) 28.6 L Arterial Blood pH (Temp corrected) 7.492 H Arterial Blood pO2 (Temp corrected) 107.7 H Blood Gas A-a O2 Differential 72.6 H Blood Gas Actual Respiration Rate 23 Blood Gas Inspiratory Pressure 28.0 Blood Gas Low PEEP Setting 5.0 Blood Gas Mean Airway Pressure 10 Blood Gas Modality VENT - AC Blood Gas Notified Time 03/22/2016 5:33:56 AM Blood Gas Notified Whom RTR Blood Gas Respiration Rate 14.0 Blood Gas Specimen Source Blood arterial Blood Gas Temperature 37.0 Blood Gas Tidal Volume 500.0 FiO2 30.0 Oxyhemoglobin Percent 96.5 Total Hemoglobin 10.4 L Alanine Aminotransferase (ALT/SGPT) 32 Albumin 1.9 L Albumin/Globulin Ratio 0.82 Alkaline Phosphatase 128 H Anion Gap 14 Aspartate Amino Transf (AST/SGOT) 34 Basophils # 0.1 Basophils % 0.6 Blood Morphology Comment Blood Urea Nitrogen 33 H Calcium Level 6.9 L Carbon Dioxide Level 22 Chloride Level 111 H Creatinine 1.02 H Direct Bilirubin 0.00 Eosinophils # 0.1 Eosinophils % 0.6 Globulin 2.30 Glucose Level 93 Hematocrit 25.3 L Hemoglobin 8.4 L Indirect Bilirubin 0.0 Lymphocytes # 0.9 Lymphocytes % 8.9 L Mean Corpuscular Hemoglobin 31.0 Mean Corpuscular Hemoglobin Concent 33.0 Mean Corpuscular Volume 94.2 Mean Platelet Volume 11.0 H Monocytes # 0.7 Monocytes % 7.3 Neutrophils # 8.3 H Neutrophils % 82.6 H Nucleated Red Blood Cells # 0.0 Nucleated Red Blood Cells % 0.0 Platelet Count 231 Potassium Level 2.5 *L Red Blood Count 2.69 L Red Cell Distribution Width 18.4 H Sodium Level 144 Total Bilirubin 0.0 L Total Protein 4.2 L White Blood Count 10.0 # Activated Partial Thromboplast Time 37.7 H INR International Normalized Ratio 1.24 Prothrombin Time 15.7 H Prothrombin Time Ratio 1.2 Test 03/22/16 09:28 Arterial Blood HCO3 22.5 Arterial Blood Base Excess -0.2 Arterial Blood Oxygen Saturation 97.9 Kaiden Test ACCEPTAB Arterial Blood Gas Puncture Site Right Radial Arterial Blood Carboxyhemoglobin 0.2 Arterial Blood Date Drawn 03/22/2016 10:20:56 AM Arterial Blood Methemoglobin 0.4 Arterial Blood pCO2 (Temp correct) 30.2 L Arterial Blood pH (Temp corrected) 7.491 H Arterial Blood pO2 (Temp corrected) 123.2 H Blood Gas A-a O2 Differential 55.2 H Blood Gas Actual Respiration Rate 24 Blood Gas Low PEEP Setting 5.0 Blood Gas Modality VENT - CPAP Blood Gas Notified Time 03/22/2016 10:43:53 AM Blood Gas Notified Whom JLD Blood Gas Pressure Support 10 Blood Gas Specimen Source Blood arterial Blood Gas Temperature 37.0 FiO2 30.0 Oxyhemoglobin Percent 97.3 Total Hemoglobin 10.4 L Medications Medications Current Medications Lorazepam (Ativan) 0.5 mg Q6H PRN IV ANXIETY Last administered on 03/17/16 18: 50; Admin Dose 0.5 MG; Start 02/24/16 at 02:00 Ondansetron HCl (Zofran Inj) 4 mg Q6H PRN IV NAUSEA AND/OR VOMITING Last administered on 03/01/16 13:17; Admin Dose 4 MG; Start 02/24/16 at 02:00 Nitroglycerin (Nitroglycerin (Sl Tab) 0.4 Mg) 1 tab Q5M PRN SL CHEST PAIN; Start 02/24/16 at 02:00 Hydralazine HCl (Apresoline) 10 mg Q6H PRN IV SBP > 160 Last administered on 16:28; Admin Dose 10 MG; Start 02/24/16 at 02:00 Labetalol HCl (Labetalol) 10 mg Q6 PRN IV ELEVATED BLOOD PRESSURE; Start at 23:00 Guaifenesin/ Dextromethorphan (Robitussin Dm Liquid Cup) 5 ml Q6 PRN PO COUGH Last administered on 02/27/16 18:12; Admin Dose 5 ML; Start 02/24/16 at 23:00 Nicotine (Nicoderm 21 Mg/ 24hr) 1 patch DAILY TRANSDERM Last administered on 08:42; Admin Dose 1 PATCH; Start 02/26/16 at 09:00 Levothyroxine Sodium (Synthroid) 25 mcg DAILY@06 PO Last administered on 05:50; Admin Dose 25 MCG; Start 02/28/16 at 06:00 Hydromorphone HCl (Dilaudid) 0.5 mg Q3 PRN IV PAIN Last administered on 02:14; Admin Dose 0.5 MG; Start 03/02/16 at 17:00 Heparin Sodium (Porcine) (Heparin (5000 Units/0.5 ml)) 5,000 unit BID SC Last administered on 03/22/16 08:44; Admin Dose 5,000 UNIT; Start 03/02/16 at 21:30 Dicyclomine HCl (Bentyl) 10 mg BID PO Last administered on 03/22/16 08:43; Admin Dose 10 MG; Start 03/15/16 at 21:00 Metronidazole (Flagyl) 500 mg Q8 PO Last administered on 03/22/16 13:30; Admin Dose 500 MG; Start 03/16/16 at 22:00 Verapamil HCl (Verapamil) 5 mg Q6H PRN IV ELEVATED HEART RATE Last administered on 03/17/16 23:45; Admin Dose 5 MG; Start 03/17/16 at 23:30 Zolpidem Tartrate (Ambien) 5 mg HS PRN PO INSOMNIA Last administered on 23:56; Admin Dose 5 MG; Start 03/17/16 at 23:30 Metoprolol Tartrate (Lopressor) 5 mg Q4H PRN IV ELEVATED HEART RATE Last administered on 03/18/16 01:41; Admin Dose 5 MG; Start 03/18/16 at 01:30 Acetaminophen 650 mg 650 mg Q6H PRN PO PAIN AND OR ELEVATED TEMP Last administered on 03/19/16 01:18; Admin Dose 650 MG; Start 03/18/16 at 23:30 Meropenem 100 ml @ 200 mls/hr Q12 IVPB Last administered on 03/22/16 13:06; Admin Dose 200 MLS/HR; Start 03/19/16 at 09:00 Fluconazole/ Sodium Chloride 50 ml @ 50 mls/hr Q24H IVPB Last administered on 08:43; Admin Dose 50 MLS/HR; Start 03/19/16 at 08:30 Propofol 100 ml @ 1.692 mls/ hr Q12H IV Last administered on 03/22/16 13:14; Admin Dose 6.768 MLS/HR; Start 03/20/16 at 01:00 Sodium Bicarbonate/ Dextrose (Na Bicarb/D5W) 1,100 ml @ 50 mls/hr Q22H IV Last administered on 03/22/16 13:04; Admin Dose 50 MLS/HR; Start 03/20/16 at 13: 00 Aspirin (Aspirin) 81 mg DAILY NGT Last administered on 03/22/16 08:42; Admin Dose 81 MG; Start 03/21/16 at 09:00 Furosemide (Lasix) 20 mg DAILY IV Last administered on 03/22/16 08:42; Admin Dose 20 MG; Start 03/21/16 at 09:00 Pantoprazole (Protonix Iv) 40 mg DAILY@06 IV Last administered on 03/22/16 05: 50; Admin Dose 40 MG; Start 03/21/16 at 06:00 Collagenase 1 applic 1 applic DAILY TOP Last administered on 03/22/16 16:48; Admin Dose 1 APPLIC; Start 03/21/16 at 15:00 Vancomycin HCl/ Sodium Chloride (Vancocin/NS) 150 ml @ 75 mls/hr Q36H IVPB Last administered on 03/22/16 13:19; Admin Dose 75 MLS/HR; Start 03/22/16 at 13: 00 Hydralazine HCl (Apresoline) 25 mg Q8 PO Last administered on 2/8/17at 17:12; Admin Dose 25 MG; Start 03/22/16 at 14:00 Metoprolol Tartrate (Lopressor) 25 mg BID PO ; Start 03/22/16 at 21:00 IV Flush (NS 10 ml) 10 ml PRN PRN IV IV PROTOCOL; Start 03/22/16 at 12:30 Albumin Human (Albumin Human 25%) 50 ml Q8H IV ; Start 03/22/16 at 21:00; Stop at 05:01 CHARISSA WILHELM MD Mar 22, 2016 17:51
[2016-03-22] MEDS: ALBUMIN HUMAN 25% 50 ML INJ IV SCH (20:55)
[2016-03-22] MEDS: METOPROLOL 25 MG TAB PO SCH (21:01)
[2016-03-23] VITALS (53 sets, daily range): BP systolic 122–177; BP diastolic 45–120; PULSE 52–118; RESP 9–30
[2016-03-23] MEDS: POTASSIUM CHLORIDE 50 ML IVPB PRN ×6 (00:08→23:48)
[2016-03-23 05:16] LABS: INR 1.34; PROTIME 16.7 Sec (12.2-14.2); PT RATIO 1.3
[2016-03-23] MEDS: LEVOTHYROXINE 25 MCG TAB PO SCH (05:26)
[2016-03-23] MEDS: ALBUMIN HUMAN 25% 50 ML INJ IV SCH (05:26)
[2016-03-23] MEDS: PANTOPRAZOLE 40 MG INJ IV SCH (05:27)
[2016-03-23] MEDS: metroNIDAZOLE 500 MG TAB PO SCH ×3 (05:27→22:14)
[2016-03-23 05:40] LABS: POTASSIUM 3.3 mmol/L (3.5-5.1)
[2016-03-23 05:43] LABS: CREATININE 0.91 mg/dl (0.44-1.00)
[2016-03-23 05:44] LABS: CALCIUM 6.8 mg/dl (8.4-10.2)
[2016-03-23] MEDS: NICOTINE (21 MG/24 HR) PATCH TRANSDERM SCH (08:46)
[2016-03-23] MEDS: FLUCONAZOLE 100 MG/NS (PMX) 50 ML IVPB SCH (08:46)
[2016-03-23] MEDS: MEROPENEM 500 MG/100 ML (PMX) 100 ML IVPB SCH ×2 (08:46→20:54)
[2016-03-23] MEDS: FUROSEMIDE 20 MG INJ IV SCH (08:47)
[2016-03-23] MEDS: HEPARIN 5,000 UNIT/0.5 ML SYG SC SCH ×2 (08:48→21:01)
[2016-03-23] MEDS: DICYCLOMINE 10 MG CAP PO SCH ×2 (08:57→20:56)
[2016-03-23] MEDS: METOPROLOL 25 MG TAB PO SCH ×2 (08:57→20:56)
[2016-03-23] MEDS: ASPIRIN 81 MG TAB NGT SCH (08:58)
[2016-03-23] MEDS: COLLAGENASE 30 GM TUBE TOP SCH (09:00)
--- NOTE | 2016-03-23 09:20 | CONS ---
Date/Time of Note Date/Time of Note DATE: 03/23/16 TIME: 09:09 Assessment/Plan Assessment/Plan Additional Assessment/Plan Current ventilator settings; assist control of 12, tidal volume 400, PEEP of 5, 30% FiO2. Assessment and recommendation; 1. Patient initially admitted for abdominal distention underwent laparotomy was successfully extubated transferred to the medical floor with patient again decompensated and underwent a brief CPR requiring reintubation. 2. C. difficile colitis with significant clinical improvement. As well as marked reduction in abdominal distention. 3. Hypeothyroidism. 4. Hypertension. 5. Stable renal insufficiency. 6. History of pneumothorax. Obtain an ABG on CPAP mode. Once ABGs done I will review it and the patient may likely be extubated. Meanwhile continue current treatment Consultation Date/Type/Reason Admit Date/Time Feb 24, 2016 at 04:06 Type of Consultation: Pulmonary/critical care Referring Provider: HOWARD LEVY MD 24 HR Interval Summary Free Text/Dictation Patient condition is stable. Had been off sedation. Is completely awake and alert. Patient was switched to CPAP mode around 7 AM today and currently has excellent weaning parameters. Denies any shortness of breath. Any abdominal pain. General examination; elderly lady, or intubated. Awake and alert. Currently in no distress. Exam/Review of Systems Vital Signs Vitals Vital Signs Date Time Temp Pulse Resp B/P Pulse Ox O2 Delivery O2 Flow Rate FiO2 03/23/16 07:45 56 100 24 03/23/16 07:30 14 136/49 03/23/16 07:00 97.5 03/22/16 06:00 Mechanical Ventilator 03/19/16 16:05 2.0 Intake and Output 03/22/16 03/22/16 03/23/16 15:00 23:00 07:00 Intake Total 613.536 ml 918.124 ml 701.20 ml Output Total 385 ml 175 ml 200 ml Balance 228.536 ml 743.124 ml 501.20 ml Exam HEENT examination; supple neck, no JVD. Or intubated. It was a small bilaterally. No neck masses. No thyromegaly. Chest examination; clear to auscultation bilaterally. S1-S2 audible. No murmurs. Regular rate and rhythm. Abdomen examination; there is significant reduction in abdominal distention. Abdomen is nontender. Bowel sounds audible. Multiple well-healed scars are present. Extremity examination; 2+ pitting edema in lower extremities bilaterally. EVALUATOR TRANSFER STUDENTS examination; patient is awake alert moves all 4 extremities on command. Results Result Diagram: 03/22/16 0530 03/23/16 0430 Results 24 hrs Laboratory Tests Test 03/22/16 09:28 03/22/16 21:15 03/23/16 04:30 Arterial Blood HCO3 22.5 Arterial Blood Base Excess -0.2 Arterial Blood Oxygen Saturation 97.9 Kaiden Test ACCEPTAB Arterial Blood Gas Puncture Site Right Radial Arterial Blood Carboxyhemoglobin 0.2 Arterial Blood Date Drawn 03/22/2016 10:20:56 AM Arterial Blood Methemoglobin 0.4 Arterial Blood pCO2 (Temp correct) 30.2 L Arterial Blood pH (Temp corrected) 7.491 H Arterial Blood pO2 (Temp corrected) 123.2 H Blood Gas A-a O2 Differential 55.2 H Blood Gas Actual Respiration Rate 24 Blood Gas Low PEEP Setting 5.0 Blood Gas Modality VENT - CPAP Blood Gas Notified Time 03/22/2016 10:43:53 AM Blood Gas Notified Whom JLD Blood Gas Pressure Support 10 Blood Gas Specimen Source Blood arterial Blood Gas Temperature 37.0 FiO2 30.0 Oxyhemoglobin Percent 97.3 Total Hemoglobin 10.4 L Potassium Level 2.8 *L 3.3 L Activated Partial Thromboplast Time 40.0 H Anion Gap 13 Blood Urea Nitrogen 28 H Calcium Level 6.8 L Carbon Dioxide Level 23 Chloride Level 111 H Creatinine 0.91 Glucose Level 85 INR International Normalized Ratio 1.34 Prothrombin Time 16.7 H Prothrombin Time Ratio 1.3 Sodium Level 144 Medications Medications Current Medications Lorazepam (Ativan) 0.5 mg Q6H PRN IV ANXIETY Last administered on 03/17/16 18: 50; Admin Dose 0.5 MG; Start 02/24/16 at 02:00 Ondansetron HCl (Zofran Inj) 4 mg Q6H PRN IV NAUSEA AND/OR VOMITING Last administered on 03/01/16 13:17; Admin Dose 4 MG; Start 02/24/16 at 02:00 Nitroglycerin (Nitroglycerin (Sl Tab) 0.4 Mg) 1 tab Q5M PRN SL CHEST PAIN; Start 02/24/16 at 02:00 Hydralazine HCl (Apresoline) 10 mg Q6H PRN IV SBP > 160 Last administered on 16:28; Admin Dose 10 MG; Start 02/24/16 at 02:00 Labetalol HCl (Labetalol) 10 mg Q6 PRN IV ELEVATED BLOOD PRESSURE; Start at 23:00 Guaifenesin/ Dextromethorphan (Robitussin Dm Liquid Cup) 5 ml Q6 PRN PO COUGH Last administered on 02/27/16 18:12; Admin Dose 5 ML; Start 02/24/16 at 23:00 Nicotine (Nicoderm 21 Mg/ 24hr) 1 patch DAILY TRANSDERM Last administered on 08:46; Admin Dose 1 PATCH; Start 02/26/16 at 09:00 Levothyroxine Sodium (Synthroid) 25 mcg DAILY@06 PO Last administered on 05:26; Admin Dose 25 MCG; Start 02/28/16 at 06:00 Hydromorphone HCl (Dilaudid) 0.5 mg Q3 PRN IV PAIN Last administered on 02:14; Admin Dose 0.5 MG; Start 03/02/16 at 17:00 Heparin Sodium (Porcine) (Heparin (5000 Units/0.5 ml)) 5,000 unit BID SC Last administered on 03/23/16 08:48; Admin Dose 5,000 UNIT; Start 03/02/16 at 21:30 Dicyclomine HCl (Bentyl) 10 mg BID PO Last administered on 03/22/16 21:00; Admin Dose 10 MG; Start 03/15/16 at 21:00 Metronidazole (Flagyl) 500 mg Q8 PO Last administered on 03/23/16 05:27; Admin Dose 500 MG; Start 03/16/16 at 22:00 Verapamil HCl (Verapamil) 5 mg Q6H PRN IV ELEVATED HEART RATE Last administered on 03/17/16 23:45; Admin Dose 5 MG; Start 03/17/16 at 23:30 Zolpidem Tartrate (Ambien) 5 mg HS PRN PO INSOMNIA Last administered on 23:56; Admin Dose 5 MG; Start 03/17/16 at 23:30 Metoprolol Tartrate (Lopressor) 5 mg Q4H PRN IV ELEVATED HEART RATE Last administered on 03/18/16 01:41; Admin Dose 5 MG; Start 03/18/16 at 01:30 Acetaminophen 650 mg 650 mg Q6H PRN PO PAIN AND OR ELEVATED TEMP Last administered on 03/19/16 01:18; Admin Dose 650 MG; Start 03/18/16 at 23:30 Meropenem 100 ml @ 200 mls/hr Q12 IVPB Last administered on 03/23/16 08:46; Admin Dose 200 MLS/HR; Start 03/19/16 at 09:00 Fluconazole/ Sodium Chloride 50 ml @ 50 mls/hr Q24H IVPB Last administered on 08:46; Admin Dose 50 MLS/HR; Start 03/19/16 at 08:30 Propofol (Diprivan) 100 ml @ 1.692 mls/ hr Q12H IV Last administered on 22:40; Admin Dose 13.536 MLS/HR; Start 03/20/16 at 01:00 Aspirin (Aspirin) 81 mg DAILY NGT Last administered on 03/22/16 08:42; Admin Dose 81 MG; Start 03/21/16 at 09:00 Furosemide (Lasix) 20 mg DAILY IV Last administered on 03/23/16 08:47; Admin Dose 20 MG; Start 03/21/16 at 09:00 Pantoprazole (Protonix Iv) 40 mg DAILY@06 IV Last administered on 03/23/16 05: 27; Admin Dose 40 MG; Start 03/21/16 at 06:00 Collagenase 1 applic 1 applic DAILY TOP Last administered on 03/22/16 16:48; Admin Dose 1 APPLIC; Start 03/21/16 at 15:00 Vancomycin HCl/ Sodium Chloride (Vancocin/NS) 150 ml @ 75 mls/hr Q36H IVPB Last administered on 03/22/16 13:19; Admin Dose 75 MLS/HR; Start 03/22/16 at 13: 00 Hydralazine HCl (Apresoline) 25 mg Q8 PO Last administered on 03/23/16 05:27; Admin Dose 25 MG; Start 03/22/16 at 14:00 Metoprolol Tartrate (Lopressor) 25 mg BID PO Last administered on 03/22/16 21: 01; Admin Dose 25 MG; Start 03/22/16 at 21:00 IV Flush 10 ml 10 ml PRN PRN IV IV PROTOCOL; Start 03/22/16 at 12:30 Dextrose/Sodium Chloride (D5-1/2ns) 1,000 ml @ 70 mls/hr [id number] IV ; Start 03/23/16 at 09:00 GAIL SPENCER Mar 23, 2016 09:20
[2016-03-23] MEDS ORDERED: POTASSIUM CHLORIDE 50 ML IVPB ONE (09:30)
[2016-03-23 09:58] LABS: AADO2 Arterial 35.4 mmHg (7.0-24.0); Allen Test ACCEPTAB; Arterial Base Excess 0.2 mmol/L (-3.0-3); Arterial COHb 0.3 % (0.0-3.0); Arterial Fraction of Oxyhgb 97.5 % (93.0-99.0); Arterial HCO3 23.4 mmol/L (22.0-26.0); Arterial MetHb 0.4 % (0.0-1.5); Arterial Total Hemglobin 8.9 g/dl (12.0-18.0); Blood Gas PS 10; MODE VENT - CPAP
--- NOTE | 2016-03-23 11:07 | CONS ---
Date/Time of Note Date/Time of Note DATE: 03/23/16 TIME: 11:04 Assessment/Plan Assessment/Plan Chief Complaint/Hosp Course IMPRESSION: 1. Positive troponin, assess significance in the setting of renal failure, status post code blue with respiratory arrest.-slowly downtrending 2. Cardiomyopathy with decreased left ventricular ejection fraction/CHF- systolic acute on chronic. last EF being approximately 35% by echo. 3. Abnormal electrocardiogram, assess for acute coronary syndrome. 4. Hypotension-now improved with HTN 5. Anemia. 6. Renal failure-improving 7. Hypokalemia. 8. Hypernatremia-improved 9. Hemothorax status post VATS with decortication. 10. Status post pulmonary arrest. 11. Anemia. 12. Lower extremity edema. Recc: -tele -serial ecg's -Continue gentle lasix diuresis daily and follow volume status closely -Continue abx's and f/u cx data -Increase hydralazine to improve BP control -Wean vent as tolerated Problems: Consultation Date/Type/Reason Admit Date/Time Feb 24, 2016 at 04:06 Initial Consult Date 03/20/16 Type of Consultation: Cardiology Reason for Consultation positive troponin Referring Provider: HOWARD LEVY MD Exam/Review of Systems Vital Signs Vitals Vital Signs Date Time Temp Pulse Resp B/P Pulse Ox O2 Delivery O2 Flow Rate FiO2 03/23/16 10:00 77 23 159/120 100 03/23/16 07:45 24 03/23/16 07:00 97.5 03/22/16 06:00 Mechanical Ventilator 03/19/16 16:05 2.0 Intake and Output 03/22/16 03/22/16 03/23/16 15:00 23:00 07:00 Intake Total 613.536 ml 918.124 ml 701.20 ml Output Total 385 ml 175 ml 200 ml Balance 228.536 ml 743.124 ml 501.20 ml Exam Review of Systems: CONSTITUTIONAL: No fevers, chills. PULMONARY: intubated CARDIOVASCULAR: No obvious chest pain/palpitations GASTROINTESTINAL: No nausea/vomiting. GENITOURINARY: No hematuria/dysuria. MUSCULOSKELETAL: No obvious myagias/arthalgias. PSYCHIATRIC: No documented depression. NEUROLOGIC: sedated Constitutional: alert, oriented Psych: no complaints Head: normocephalic ENMT: mucosa pink and moist Neck: jvd (9 cm water), supple Respiratory: diminished breath sounds (at bases/B) Cardiovascular: regular rate and rhythm Gastrointestinal: non-tender, soft Musculoskeletal: muscle tone (normal) Extremities: edema (none) Neurological: other (sedated) Results Result Diagram: 03/22/16 0530 03/23/16 0430 Results 24 hrs Laboratory Tests Test 03/22/16 21:15 03/23/16 04:30 03/23/16 09:20 Potassium Level 2.8 *L 3.3 L Activated Partial Thromboplast Time 40.0 H Anion Gap 13 Blood Urea Nitrogen 28 H Calcium Level 6.8 L Carbon Dioxide Level 23 Chloride Level 111 H Creatinine 0.91 Glucose Level 85 INR International Normalized Ratio 1.34 Prothrombin Time 16.7 H Prothrombin Time Ratio 1.3 Sodium Level 144 Arterial Blood HCO3 23.4 Arterial Blood Base Excess 0.2 Arterial Blood Oxygen Saturation 98.2 Kaiden Test ACCEPTAB Arterial Blood Gas Puncture Site Right Radial Arterial Blood Carboxyhemoglobin 0.3 Arterial Blood Date Drawn 03/23/2016 9:30:17 AM Arterial Blood Methemoglobin 0.4 Arterial Blood pCO2 (Temp correct) 32.3 L Arterial Blood pH (Temp corrected) 7.478 H Arterial Blood pO2 (Temp corrected) 140.6 H Blood Gas A-a O2 Differential 35.4 H Blood Gas Actual Respiration Rate 35 Blood Gas Low PEEP Setting 5.0 Blood Gas Modality VENT - CPAP Blood Gas Notified Time 03/23/2016 9:58:25 AM Blood Gas Notified Whom JLD Blood Gas Pressure Support 10 Blood Gas Specimen Source Blood arterial Blood Gas Temperature 37.0 FiO2 30.0 Oxyhemoglobin Percent 97.5 Total Hemoglobin 8.9 L Medications Medications Current Medications Lorazepam (Ativan) 0.5 mg Q6H PRN IV ANXIETY Last administered on 03/17/16 18: 50; Admin Dose 0.5 MG; Start 02/24/16 at 02:00 Ondansetron HCl (Zofran Inj) 4 mg Q6H PRN IV NAUSEA AND/OR VOMITING Last administered on 03/01/16 13:17; Admin Dose 4 MG; Start 02/24/16 at 02:00 Nitroglycerin (Nitroglycerin (Sl Tab) 0.4 Mg) 1 tab Q5M PRN SL CHEST PAIN; Start 02/24/16 at 02:00 Hydralazine HCl (Apresoline) 10 mg Q6H PRN IV SBP > 160 Last administered on 16:28; Admin Dose 10 MG; Start 02/24/16 at 02:00 Labetalol HCl (Labetalol) 10 mg Q6 PRN IV ELEVATED BLOOD PRESSURE; Start at 23:00 Guaifenesin/ Dextromethorphan (Robitussin Dm Liquid Cup) 5 ml Q6 PRN PO COUGH Last administered on 02/27/16 18:12; Admin Dose 5 ML; Start 02/24/16 at 23:00 Nicotine (Nicoderm 21 Mg/ 24hr) 1 patch DAILY TRANSDERM Last administered on 08:46; Admin Dose 1 PATCH; Start 02/26/16 at 09:00 Levothyroxine Sodium (Synthroid) 25 mcg DAILY@06 PO Last administered on 05:26; Admin Dose 25 MCG; Start 02/28/16 at 06:00 Hydromorphone HCl (Dilaudid) 0.5 mg Q3 PRN IV PAIN Last administered on 02:14; Admin Dose 0.5 MG; Start 03/02/16 at 17:00 Heparin Sodium (Porcine) (Heparin (5000 Units/0.5 ml)) 5,000 unit BID SC Last administered on 03/23/16 08:48; Admin Dose 5,000 UNIT; Start 03/02/16 at 21:30 Dicyclomine HCl (Bentyl) 10 mg BID PO Last administered on 03/22/16 21:00; Admin Dose 10 MG; Start 03/15/16 at 21:00 Metronidazole (Flagyl) 500 mg Q8 PO Last administered on 03/23/16 05:27; Admin Dose 500 MG; Start 03/16/16 at 22:00 Verapamil HCl (Verapamil) 5 mg Q6H PRN IV ELEVATED HEART RATE Last administered on 03/17/16 23:45; Admin Dose 5 MG; Start 03/17/16 at 23:30 Zolpidem Tartrate (Ambien) 5 mg HS PRN PO INSOMNIA Last administered on 23:56; Admin Dose 5 MG; Start 03/17/16 at 23:30 Metoprolol Tartrate (Lopressor) 5 mg Q4H PRN IV ELEVATED HEART RATE Last administered on 03/18/16 01:41; Admin Dose 5 MG; Start 03/18/16 at 01:30 Acetaminophen 650 mg 650 mg Q6H PRN PO PAIN AND OR ELEVATED TEMP Last administered on 03/19/16 01:18; Admin Dose 650 MG; Start 03/18/16 at 23:30 Meropenem 100 ml @ 200 mls/hr Q12 IVPB Last administered on 03/23/16 08:46; Admin Dose 200 MLS/HR; Start 03/19/16 at 09:00 Fluconazole/ Sodium Chloride 50 ml @ 50 mls/hr Q24H IVPB Last administered on 08:46; Admin Dose 50 MLS/HR; Start 03/19/16 at 08:30 Propofol (Diprivan) 100 ml @ 1.692 mls/ hr Q12H IV Last administered on 22:40; Admin Dose 13.536 MLS/HR; Start 03/20/16 at 01:00 Aspirin (Aspirin) 81 mg DAILY NGT Last administered on 03/22/16 08:42; Admin Dose 81 MG; Start 03/21/16 at 09:00 Furosemide (Lasix) 20 mg DAILY IV Last administered on 03/23/16 08:47; Admin Dose 20 MG; Start 03/21/16 at 09:00 Pantoprazole (Protonix Iv) 40 mg DAILY@06 IV Last administered on 03/23/16 05: 27; Admin Dose 40 MG; Start 03/21/16 at 06:00 Collagenase 1 applic 1 applic DAILY TOP Last administered on 03/22/16 16:48; Admin Dose 1 APPLIC; Start 03/21/16 at 15:00 Vancomycin HCl/ Sodium Chloride (Vancocin/NS) 150 ml @ 75 mls/hr Q36H IVPB Last administered on 03/22/16 13:19; Admin Dose 75 MLS/HR; Start 03/22/16 at 13: 00 Hydralazine HCl (Apresoline) 25 mg Q8 PO Last administered on 03/23/16 05:27; Admin Dose 25 MG; Start 03/22/16 at 14:00 Metoprolol Tartrate (Lopressor) 25 mg BID PO Last administered on 03/22/16t 21: 01; Admin Dose 25 MG; Start 03/22/16 at 21:00 IV Flush 10 ml 10 ml PRN PRN IV IV PROTOCOL; Start 03/22/16 at 12:30 Dextrose/Sodium Chloride 1,000 ml @ 70 mls/hr [id number] IV ; Start 03/23/16 at 09: 00 Potassium Chloride (KCl 20 MEQ/50 ML SW) 50 ml @ 25 mls/hr ONCE ONCE IVPB ; Start 03/23/16 at 09:30; Stop 03/23/16 at 11:29 KORINA OCONNOR Mar 23, 2016 11:07
[2016-03-23] MEDS: PROPOFOL 100 ML IV SCH ×2 (11:27→23:46)
--- NOTE | 2016-03-23 11:45 | RADRPT ---
Vent Rate: 61 bpm RR Interval: 0 msec PA Interval: 128 msec QRS Duration: 72 msec QT Interval: 500 msec QTC Interval: 503 msec P-R-T [place]: 78 - 74 - 65 degrees Normal sinus rhythm Low voltage QRS Prolonged QT Abnormal ECG Electronically Signed By: Matheus Bolaños [id number]
[2016-03-23] MEDS: DEXTROSE 5%-0.45% NACL 1,000 ML IV SCH ×2 (12:52→23:18)
--- NOTE | 2016-03-23 13:58 | PN ---
Date/Time of Note Date/Time of Note DATE: 03/23/16 TIME: 13:55 Assessment/Plan VTE Prophylaxis VTE Prophylaxis Intervention: heparin Lines/Catheters IV Catheter Type (from Nrs): PICC Line Central line still needed: Yes (IV access ) Urinary Cath still in place: Yes Reason Cath still needed: other (indicate) (intubated, strict I/O ) Assessment/Plan Assessment/Plan 1. Sepsis. 2. Acute respiratory failure, intubated on ventilator, possible aspiratio pNA 3. Bilateral pleural effusions status post thoracentesis a couple days ago with cultures being negative. 4. Severe pancolitis, patient remains on coverage with Dificid, oral vancomycin and Flagyl. 5. Left lower extremity cellulitis, resolving. 6. Status post Ann glabrata urinary tract infection. 7. Status post cervical spine injury. 8. Status post diagnostic laparoscopy on 03/01/2016. Plan: IV abx, ID following Vent management as per pulmonary- on intermittent weaning trial good urine output, Cr normal today If not weaning today then place NG tube and start Tube feeding s/p PICC line placement Family decided for DNR, regarding Hospice care they want to wait Heparin for DVT prophylaxis Subjective 24 Hr Interval Summary Free Text/Dictation pt more awake today, Bp stable, on CPAP trial Exam/Review of Systems Vital Signs Vitals Vital Signs Date Time Temp Pulse Resp B/P Pulse Ox O2 Delivery O2 Flow Rate FiO2 03/23/16 12:00 58 03/23/16 10:30 28 100 30 03/23/16 10:00 159/120 03/23/16 07:00 97.5 03/22/16 06:00 Mechanical Ventilator 03/19/16 16:05 2.0 Intake and Output 03/22/16 03/22/16 03/23/16 15:00 23:00 07:00 Intake Total 613.536 ml 918.124 ml 701.20 ml Output Total 385 ml 175 ml 220 ml Balance 228.536 ml 743.124 ml 481.20 ml Exam GENERAL: Fragile, intubated on ventilator HEENT: Head atraumatic, normocephalic. Sclerae anicteric. Buccal mucosa dry. NECK: Supple, trachea midline. CHEST: Rise symmetrical. Breath sounds diminished at the bases. HEART: S1, S2. ABDOMEN: Soft, distended. Bowel tones hypoactive. EXTREMITIES: With bilateral edema, left lower extremity looks much better with decreased erythema. Results Result Diagram: 03/22/16 0530 03/23/16 0430 Results 24 hrs Laboratory Tests Test 03/22/16 21:15 03/23/16 04:30 03/23/16 09:20 Potassium Level 2.8 *L 3.3 L Activated Partial Thromboplast Time 40.0 H Anion Gap 13 Blood Urea Nitrogen 28 H Calcium Level 6.8 L Carbon Dioxide Level 23 Chloride Level 111 H Creatinine 0.91 Glucose Level 85 INR International Normalized Ratio 1.34 Prothrombin Time 16.7 H Prothrombin Time Ratio 1.3 Sodium Level 144 Arterial Blood HCO3 23.4 Arterial Blood Base Excess 0.2 Arterial Blood Oxygen Saturation 98.2 Kaiden Test ACCEPTAB Arterial Blood Gas Puncture Site Right Radial Arterial Blood Carboxyhemoglobin 0.3 Arterial Blood Date Drawn 03/23/2016 9:30:17 AM Arterial Blood Methemoglobin 0.4 Arterial Blood pCO2 (Temp correct) 32.3 L Arterial Blood pH (Temp corrected) 7.478 H Arterial Blood pO2 (Temp corrected) 140.6 H Blood Gas A-a O2 Differential 35.4 H Blood Gas Actual Respiration Rate 35 Blood Gas Low PEEP Setting 5.0 Blood Gas Modality VENT - CPAP Blood Gas Notified Time 03/23/2016 9:58:25 AM Blood Gas Notified Whom JLD Blood Gas Pressure Support 10 Blood Gas Specimen Source Blood arterial Blood Gas Temperature 37.0 FiO2 30.0 Oxyhemoglobin Percent 97.5 Total Hemoglobin 8.9 L Medications Medications Current Medications Lorazepam (Ativan) 0.5 mg Q6H PRN IV ANXIETY Last administered on 03/17/16 18: 50; Admin Dose 0.5 MG; Start 02/24/16 at 02:00 Ondansetron HCl (Zofran Inj) 4 mg Q6H PRN IV NAUSEA AND/OR VOMITING Last administered on 03/01/16 13:17; Admin Dose 4 MG; Start 02/24/16 at 02:00 Nitroglycerin (Nitroglycerin (Sl Tab) 0.4 Mg) 1 tab Q5M PRN SL CHEST PAIN; Start 02/24/16 at 02:00 Hydralazine HCl (Apresoline) 10 mg Q6H PRN IV SBP > 160 Last administered on 16:28; Admin Dose 10 MG; Start 02/24/16 at 02:00 Labetalol HCl (Labetalol) 10 mg Q6 PRN IV ELEVATED BLOOD PRESSURE; Start at 23:00 Guaifenesin/ Dextromethorphan (Robitussin Dm Liquid Cup) 5 ml Q6 PRN PO COUGH Last administered on 02/27/16 18:12; Admin Dose 5 ML; Start 02/24/16 at 23:00 Nicotine (Nicoderm 21 Mg/ 24hr) 1 patch DAILY TRANSDERM Last administered on 08:46; Admin Dose 1 PATCH; Start 02/26/16 at 09:00 Levothyroxine Sodium (Synthroid) 25 mcg DAILY@06 PO Last administered on 05:26; Admin Dose 25 MCG; Start 02/28/16 at 06:00 Hydromorphone HCl (Dilaudid) 0.5 mg Q3 PRN IV PAIN Last administered on 02:14; Admin Dose 0.5 MG; Start 03/02/16 at 17:00 Heparin Sodium (Porcine) (Heparin (5000 Units/0.5 ml)) 5,000 unit BID SC Last administered on 03/23/16 08:48; Admin Dose 5,000 UNIT; Start 03/02/16 at 21:30 Dicyclomine HCl (Bentyl) 10 mg BID PO Last administered on 03/22/16 21:00; Admin Dose 10 MG; Start 03/15/16 at 21:00 Metronidazole (Flagyl) 500 mg Q8 PO Last administered on 03/23/16 05:27; Admin Dose 500 MG; Start 03/16/16 at 22:00 Verapamil HCl (Verapamil) 5 mg Q6H PRN IV ELEVATED HEART RATE Last administered on 03/17/16 23:45; Admin Dose 5 MG; Start 03/17/16 at 23:30 Zolpidem Tartrate (Ambien) 5 mg HS PRN PO INSOMNIA Last administered on 23:56; Admin Dose 5 MG; Start 03/17/16 at 23:30 Metoprolol Tartrate (Lopressor) 5 mg Q4H PRN IV ELEVATED HEART RATE Last administered on 03/18/16 01:41; Admin Dose 5 MG; Start 03/18/16 at 01:30 Acetaminophen 650 mg 650 mg Q6H PRN PO PAIN AND OR ELEVATED TEMP Last administered on 03/19/16 01:18; Admin Dose 650 MG; Start 03/18/16 at 23:30 Meropenem 100 ml @ 200 mls/hr Q12 IVPB Last administered on 03/23/16 08:46; Admin Dose 200 MLS/HR; Start 03/19/16 at 09:00 Fluconazole/ Sodium Chloride 50 ml @ 50 mls/hr Q24H IVPB Last administered on 08:46; Admin Dose 50 MLS/HR; Start 03/19/16 at 08:30 Propofol (Diprivan) 100 ml @ 1.692 mls/ hr Q12H IV Last administered on 11:27; Admin Dose 1.692 MLS/HR; Start 03/20/16 at 01:00 Aspirin (Aspirin) 81 mg DAILY NGT Last administered on 03/22/16 08:42; Admin Dose 81 MG; Start 03/21/16 at 09:00 Furosemide (Lasix) 20 mg DAILY IV Last administered on 03/23/16 08:47; Admin Dose 20 MG; Start 03/21/16 at 09:00 Pantoprazole (Protonix Iv) 40 mg DAILY@06 IV Last administered on 03/23/16 05: 27; Admin Dose 40 MG; Start 03/21/16 at 06:00 Collagenase 1 applic 1 applic DAILY TOP Last administered on 03/23/16 09:00; Admin Dose 1 APPLIC; Start 03/21/16 at 15:00 Vancomycin HCl/ Sodium Chloride (Vancocin/NS) 150 ml @ 75 mls/hr Q36H IVPB Last administered on 03/22/16 13:19; Admin Dose 75 MLS/HR; Start 03/22/16 at 13: 00 Metoprolol Tartrate (Lopressor) 25 mg BID PO Last administered on 03/22/16 21: 01; Admin Dose 25 MG; Start 03/22/16 at 21:00 IV Flush 10 ml 10 ml PRN PRN IV IV PROTOCOL; Start 03/22/16 at 12:30 Dextrose/Sodium Chloride (D5-1/2ns) 1,000 ml @ 70 mls/hr [id number] IV Last administered on 03/23/16t 12:52; Admin Dose 70 MLS/HR; Start 03/23/16 at 09:00 Hydralazine HCl (Apresoline) 50 mg Q8 PO ; Start 03/23/16 at 14:00 HOWARD LEVY MD Mar 23, 2016 13:58
--- NOTE | 2016-03-23 16:07 | CONS ---
DATE OF ADMISSION: 02/24/2016 DATE OF CONSULTATION: 03/23/2016 TYPE OF CONSULTATION: Palliative care. REFFERING PHYSICIAN: Dr. Uli Petit All of the information is taken from the patient's medical records, and prehospital course was taken from the patient's family members at the bedside. A 80-year-old female who was admitted through the emergency room at [facility] wit h increasing shortness breath probably related to a recent fall with 4 rib fractures and requiring a chest tube for pneumothorax in [place]. She was admitted, started off on aggressive intervention wi th broad spectrum IV antibiotic coverage for a left lower lobe pneumonia at that time, and reviewing medical records, initially was improving but during the hospital course developed positive troponin , renal failure, code blue, during the hospital course required intubation. ____ history of congest margaret heart failure with an EF of 35%; significant fluid and electrolyte abnormalities which have been improved; hemothorax, status post VATS procedure; laparoscopy secondary to abdominal discomfort and increasing distention with leukocytosis. At this time, the patient is back in the intensive care u nit and receiving aggressive intervention. At this time, the issues are, in speaking with family: 1. Whether or not she will be successfully extubated. 2. If patient cannot be extubated, family requests information on hospice care and options for hosp ice care as well as prognosis for this patient in the event that they want to do a compassionate ext ubation, where patient may be transferred, what their options are at that point. Options that are d iscussed with family members if she is successfully extubated, then to proceed with aggressive inter vention, which the family has thought about and would like to do so in a snf unit [facility] or maybe [place]. 3. If patient cannot be successfully extubated, then options as they see them would have been trach eostomy, which they refused, and PEG tube, which has been refused, and continuing at level of aggres sive care or compassionate extubation and where the patient would go to after being successfully ext ubated. Question is whether or not patient would stay alive long enough that they would be able to take her home, which is what they would prefer. However, if she is extubated and remains alive some period of time, I told family members that she would be a [facility]. As I reviewed medical records, speaking to family members, those are the 3 options at this point. F amily members would like to think about those and speak to Dr. Petit at the same time still while pu rsuing aggressive intervention, possible successful extubation. Dictated By: JANELLE VILLARREAL MD LP/NTS Conf#: [id number] DID#: [id number]
--- NOTE | 2016-03-23 16:20 | PN ---
DATE: 03/23/2016 SUBJECTIVE: No acute changes. The patient is lying comfortably in bed. She is awake, comfortable on vent. Afebrile. No CBC this morning. BUN 28, creatinine 0.91. MICROBIOLOGY: All cultures remain negative. ANTIMICROBIALS: 1. Vancomycin. 2. Merrem. 3. Flagyl. 4. Fluconazole. INDWELLINGS: Endotracheal tube, NG tube, Francois, PICC line placed on 03/22/2016. PHYSICAL EXAMINATION: GENERAL: This is a fragile, elderly woman who is lying comfortably in bed. HEENT: Head atraumatic, normocephalic. Sclerae anicteric. Buccal mucosa dry. NECK: Supple. CHEST: Rise symmetrical. Breath sounds diminished to bases. HEART: S1, S2. ABDOMEN: Soft, bowel tones present. EXTREMITIES: Bilateral edema. SKIN: Positive anasarca. ASSESSMENT: 1. Sepsis, resolving. 2. Acute respiratory failure, possibly aspiration event. 3. Bilateral pleural effusions status post thoracentesis last week with cultures being negative. 4. Resolving left lower extremity cellulitis. 5. Status post urinary tract infection. 6. Pancolitis. 7. Status post fall resulting in pneumothorax, cervical spine injury, status post VATS, chest tube removed. PLAN: The patient remains stable, overall improving. White blood cell count tracing down. Renal f unction also getting better. We will continue her on current antimicrobials. Continue weaning tria ls as per pulmonary recommendations. Dictated By: PHOEBE BANDA MAGNETO REPAIRER for JUAN THOMAS/JOSUÉ Conf#: [id number] DID#: [id number]
--- NOTE | 2016-03-23 19:26 | CONS ---
Date/Time of Note Date/Time of Note DATE: 03/23/16 TIME: 19:26 Assessment/Plan Assessment/Plan Additional Assessment/Plan Impression: 1. Pancolitis: likely ischemic. c.difficile negative, no infarct on laparotomy exam, culture, wbc in stool negative. 2. Fracture of the ribs. 3. Pneumothorax status post chest tube placement. 4. History of nicotine addiction. 5. Cervical spine injury. 6. History of fall. 7. Peripheral arterial disease. 8. Mild elevation of alkaline phosphatase, most probably related to alcoholic liver disease. 9. Anemia. 10. dysphagia on tube feeds 11.s/p exploratory laparotomy,no bowel resection 12.respiratory failure 13. renal failure,improving [address] shows anasarca ascites, pleural effusion,colitis worsening 16 respiratory failure,on Vent,second time 17 leucocytosis,trending down PLAN: 1. Continue antibiotics and anti-fungal per ID 2. continue tube feeds with nephro 3. antibiotics as per ID 4, ng tube feeding 5. Continue supportive care per primary and other consultants 6.albumin and diuretic daily for few days 6.Bentyl 7.thoracocentesis,VATS Plan continue all supportive care ng tube feeding,isosource 30 cc/hr.will be started today as per staff Consultation Date/Type/Reason Admit Date/Time Feb 24, 2016 at 04:06 Type of Consultation: Cardiology Referring Provider: HOWARD LEVY MD 24 HR Interval Summary Subjective hx not possible: pt critical Exam/Review of Systems Vital Signs Vitals Vital Signs Date Time Temp Pulse Resp B/P Pulse Ox O2 Delivery O2 Flow Rate FiO2 03/23/16 17:30 66 15 142/61 100 03/23/16 17:26 30 03/23/16 16:00 97.8 03/22/16 06:00 Mechanical Ventilator 03/19/16 16:05 2.0 Intake and Output 03/22/16 03/22/16 03/23/16 15:00 23:00 07:00 Intake Total 613.536 ml 918.124 ml 701.20 ml Output Total 385 ml 175 ml 220 ml Balance 228.536 ml 743.124 ml 481.20 ml Exam Constitutional: alert, oriented, well developed Psych: nl mood/affect, no complaints Head: atraumatic, normocephalic Eyes: EOMI, PERRL, nl conjunctiva, nl lids, nl sclera ENMT: nl external ears & nose, nl lips & teeth, nl nasal mucosa & septum Neck: non-tender, supple Respiratory: clear to auscultation, normal air movement Cardiovascular: nl pulses, regular rate and rhythm Gastrointestinal: nl liver, spleen, non-tender, soft Musculoskeletal: nl extremities to inspection, nl gait and stance Extremities: normal pulses Neurological: HOU[employer]KEEPING CLE[employer]ER II-XII intact, nl mental status, nl speech, nl strength Skin: nl turgor, No rash or lesions Lymph: nl lymph nodes Results Result Diagram: 03/22/16 0530 03/23/16 0430 Results 24 hrs Laboratory Tests Test 03/22/16 21:15 03/23/16 04:30 03/23/16 09:20 Potassium Level 2.8 *L 3.3 L Activated Partial Thromboplast Time 40.0 H Anion Gap 13 Blood Urea Nitrogen 28 H Calcium Level 6.8 L Carbon Dioxide Level 23 Chloride Level 111 H Creatinine 0.91 Glucose Level 85 INR International Normalized Ratio 1.34 Prothrombin Time 16.7 H Prothrombin Time Ratio 1.3 Sodium Level 144 Arterial Blood HCO3 23.4 Arterial Blood Base Excess 0.2 Arterial Blood Oxygen Saturation 98.2 Kaiden Test ACCEPTAB Arterial Blood Gas Puncture Site Right Radial Arterial Blood Carboxyhemoglobin 0.3 Arterial Blood Date Drawn 03/23/2016 9:30:17 AM Arterial Blood Methemoglobin 0.4 Arterial Blood pCO2 (Temp correct) 32.3 L Arterial Blood pH (Temp corrected) 7.478 H Arterial Blood pO2 (Temp corrected) 140.6 H Blood Gas A-a O2 Differential 35.4 H Blood Gas Actual Respiration Rate 35 Blood Gas Low PEEP Setting 5.0 Blood Gas Modality VENT - CPAP Blood Gas Notified Time 03/23/2016 9:58:25 AM Blood Gas Notified Whom JLD Blood Gas Pressure Support 10 Blood Gas Specimen Source Blood arterial Blood Gas Temperature 37.0 FiO2 30.0 Oxyhemoglobin Percent 97.5 Total Hemoglobin 8.9 L Medications Medications Current Medications Lorazepam (Ativan) 0.5 mg Q6H PRN IV ANXIETY Last administered on 03/17/16t 18: 50; Admin Dose 0.5 MG; Start 02/24/16 at 02:00 Ondansetron HCl (Zofran Inj) 4 mg Q6H PRN IV NAUSEA AND/OR VOMITING Last administered on 03/01/16 13:17; Admin Dose 4 MG; Start 02/24/16 at 02:00 Nitroglycerin (Nitroglycerin (Sl Tab) 0.4 Mg) 1 tab Q5M PRN SL CHEST PAIN; Start 02/24/16 at 02:00 Hydralazine HCl (Apresoline) 10 mg Q6H PRN IV SBP > 160 Last administered on 16:28; Admin Dose 10 MG; Start 02/24/16 at 02:00 Labetalol HCl (Labetalol) 10 mg Q6 PRN IV ELEVATED BLOOD PRESSURE; Start at 23:00 Guaifenesin/ Dextromethorphan (Robitussin Dm Liquid Cup) 5 ml Q6 PRN PO COUGH Last administered on 02/27/16 18:12; Admin Dose 5 ML; Start 02/24/16 at 23:00 Nicotine (Nicoderm 21 Mg/ 24hr) 1 patch DAILY TRANSDERM Last administered on 08:46; Admin Dose 1 PATCH; Start 02/26/16 at 09:00 Levothyroxine Sodium (Synthroid) 25 mcg DAILY@06 PO Last administered on 05:26; Admin Dose 25 MCG; Start 02/28/16 at 06:00 Hydromorphone HCl (Dilaudid) 0.5 mg Q3 PRN IV PAIN Last administered on 02:14; Admin Dose 0.5 MG; Start 03/02/16 at 17:00 Heparin Sodium (Porcine) (Heparin (5000 Units/0.5 ml)) 5,000 unit BID SC Last administered on 03/23/16 08:48; Admin Dose 5,000 UNIT; Start 03/02/16 at 21:30 Dicyclomine HCl (Bentyl) 10 mg BID PO Last administered on 03/22/16 21:00; Admin Dose 10 MG; Start 03/15/16 at 21:00 Metronidazole (Flagyl) 500 mg Q8 PO Last administered on 03/23/16 14:06; Admin Dose 500 MG; Start 03/16/16 at 22:00 Verapamil HCl (Verapamil) 5 mg Q6H PRN IV ELEVATED HEART RATE Last administered on 03/17/16 23:45; Admin Dose 5 MG; Start 03/17/16 at 23:30 Zolpidem Tartrate (Ambien) 5 mg HS PRN PO INSOMNIA Last administered on 23:56; Admin Dose 5 MG; Start 03/17/16 at 23:30 Metoprolol Tartrate (Lopressor) 5 mg Q4H PRN IV ELEVATED HEART RATE Last administered on 03/18/16 01:41; Admin Dose 5 MG; Start 03/18/16 at 01:30 Acetaminophen 650 mg 650 mg Q6H PRN PO PAIN AND OR ELEVATED TEMP Last administered on 03/19/16 01:18; Admin Dose 650 MG; Start 03/18/16 at 23:30 Meropenem 100 ml @ 200 mls/hr Q12 IVPB Last administered on 03/23/16 08:46; Admin Dose 200 MLS/HR; Start 03/19/16 at 09:00 Fluconazole/ Sodium Chloride 50 ml @ 50 mls/hr Q24H IVPB Last administered on 08:46; Admin Dose 50 MLS/HR; Start 03/19/16 at 08:30 Propofol (Diprivan) 100 ml @ 1.692 mls/ hr Q12H IV Last administered on 11:27; Admin Dose 1.692 MLS/HR; Start 03/20/16 at 01:00 Aspirin (Aspirin) 81 mg DAILY NGT Last administered on 03/22/16 08:42; Admin Dose 81 MG; Start 03/21/16 at 09:00 Furosemide (Lasix) 20 mg DAILY IV Last administered on 03/23/16 08:47; Admin Dose 20 MG; Start 03/21/16 at 09:00 Pantoprazole (Protonix Iv) 40 mg DAILY@06 IV Last administered on 03/23/16 05: 27; Admin Dose 40 MG; Start 03/21/16 at 06:00 Collagenase 1 applic 1 applic DAILY TOP Last administered on 03/23/16 09:00; Admin Dose 1 APPLIC; Start 03/21/16 at 15:00 Vancomycin HCl/ Sodium Chloride (Vancocin/NS) 150 ml @ 75 mls/hr Q36H IVPB Last administered on 03/22/16 13:19; Admin Dose 75 MLS/HR; Start 03/22/16 at 13: 00 Metoprolol Tartrate (Lopressor) 25 mg BID PO Last administered on 03/22/16 21: 01; Admin Dose 25 MG; Start 03/22/16 at 21:00 IV Flush 10 ml 10 ml PRN PRN IV IV PROTOCOL; Start 03/22/16 at 12:30 Dextrose/Sodium Chloride (D5-1/2ns) 1,000 ml @ 70 mls/hr [id number] IV Last administered on 03/23/16 12:52; Admin Dose 70 MLS/HR; Start 03/23/16 at 09:00 Hydralazine HCl (Apresoline) 50 mg Q8 PO Last administered on 03/23/16 14:06; Admin Dose 50 MG; Start 03/23/16 at 14:00 CHARISSA WILHELM MD Mar 23, 2016 19:26
--- NOTE | 2016-03-23 20:00 | PN ---
DATE: The patient in room 117 in intensive care unit at [facility]. I have spoken to the patient's daughter once again. I have made her aware of the fact that I will n ot be coming in speaking about doom and gloom but primarily to support their decision at this point. Hopefully, the plan is to successfully extubate patient and then go on with rehabilitation. Howev er, if she cannot be extubated, family's wishes are as noted in my note today at 1330 hours. Napoleon saldivar closely. Dictated By: JANELLE VILLARREAL MD LP/NTS Conf#: [id number] DID#: [id number]
[2016-03-23 22:34] LABS: POTASSIUM 3.3 mmol/L (3.5-5.1)
[2016-03-23 22:36] LABS: CREATININE 0.87 mg/dl (0.44-1.00)
[2016-03-23 22:37] LABS: CALCIUM 6.8 mg/dl (8.4-10.2)
[2016-03-24] VITALS (52 sets, daily range): BP systolic 94–175; BP diastolic 46–102; PULSE 63–86; RESP 10–32
[2016-03-24] MEDS: POTASSIUM CHLORIDE 50 ML IVPB PRN ×2 (00:53→09:00)
[2016-03-24] MEDS: VANCOMYCIN 750 MG in SOD CHLORIDE 0.9% 150 ML IVPB SCH (00:55)
[2016-03-24 05:08] LABS: ADD SCAN DIFF NO
[2016-03-24 05:19] LABS: INR 1.19; PROTIME 15.2 Sec (12.2-14.2); PT RATIO 1.2
[2016-03-24 05:20] LABS: BASOPHILS % 0.4 % (0.0-2.0); EOSINOPHILS # 0.1 10^3/ul (0.0-0.5); EOSINOPHILS % 1.6 % (0.0-7.0); HEMOGLOBIN 7.6 g/dl (12.0-16.0); LYMPHOCYTES % 12.6 % (15.0-51.0); MEAN CORPUSCULAR HEMOGLOBIN 29.5 pg (29.0-33.0); MEAN CORPUSCULAR HGB CONC 30.4 g/dl (32.0-37.0); MEAN CORPUSCULAR VOLUME 96.9 fl (82.0-101.0); MEAN PLATELET VOLUME 12.4 fl (7.4-10.4); MONOCYTE # 0.7 10^3/ul (0.3-0.9); NEUTROPHILS % 75.4 % (39.0-77.0); PARTIAL THROMBOPLASTIN TIME 37.4 Sec (25.0-35.0); PLATELET COUNT 268 10^3/UL (140-415); RED BLOOD COUNT 2.58 10^6/ul (4.20-5.40); RED CELL DISTRIBUTION WIDTH 18.3 % (11.5-14.5); WHITE BLOOD COUNT 7.9 10^3/ul (4.8-10.8)
[2016-03-24 05:27] LABS: ALBUMIN 1.9 g/dl (3.3-4.9); POTASSIUM 3.8 mmol/L (3.5-5.1)
[2016-03-24 05:29] LABS: CREATININE 0.86 mg/dl (0.44-1.00)
[2016-03-24] MEDS: PROPOFOL 100 ML IV SCH (05:29)
[2016-03-24 05:30] LABS: ALBUMIN/GLOBULIN RATIO 0.86; TOTAL PROTEIN 4.1 g/dl (6.1-8.1)
[2016-03-24] MEDS: LEVOTHYROXINE 25 MCG TAB PO SCH (05:30)
[2016-03-24] MEDS: metroNIDAZOLE 500 MG TAB PO SCH ×3 (05:30→20:17)
[2016-03-24] MEDS: PANTOPRAZOLE 40 MG INJ IV SCH (05:30)
[2016-03-24 05:31] LABS: CALCIUM 6.9 mg/dl (8.4-10.2)
[2016-03-24 08:03] LABS: AADO2 Arterial 39.7 mmHg (7.0-24.0); Allen Test ACCEPTAB; Arterial Base Excess -2.5 mmol/L (-3.0-3); Arterial COHb 0.3 % (0.0-3.0); Arterial Fraction of Oxyhgb 96.4 % (93.0-99.0); Arterial HCO3 20.3 mmol/L (22.0-26.0); Arterial MetHb 0.5 % (0.0-1.5); Arterial Total Hemglobin 8.6 g/dl (12.0-18.0); MODE VENT - AC
--- NOTE | 2016-03-24 08:41 | PN ---
Date/Time of Note Date/Time of Note DATE: 03/24/16 TIME: 08:38 Assessment/Plan VTE Prophylaxis VTE Prophylaxis Intervention: heparin Lines/Catheters IV Catheter Type (from Nrs): PICC Line Central line still needed: Yes (IV access for IV abx, Pressors, unable to maintain peripheral access ) Urinary Cath still in place: Yes Reason Cath still needed: other (indicate) (intubated on ventilator, strict I/ O ) Assessment/Plan Assessment/Plan 1. Sepsis. 2. Acute respiratory failure, intubated on ventilator, possible aspiratio pNA 3. Bilateral pleural effusions status post thoracentesis a couple days ago with cultures being negative. 4. Severe pancolitis, patient remains on coverage with Dificid, oral vancomycin and Flagyl. 5. Left lower extremity cellulitis, resolving. 6. Status post Ann glabrata urinary tract infection. 7. Status post cervical spine injury. 8. Status post diagnostic laparoscopy on 03/01/2016. Plan: IV abx, ID following Vent management as per pulmonary- on intermittent weaning trial- CPAP now good urine output, Cr normal today Hold NG tube feeding for weaning start bicitra 30ml PO BID s/p PICC line placement Family decided for DNR, regarding Hospice care they want to wait Heparin for DVT prophylaxis Subjective 24 Hr Interval Summary Free Text/Dictation pt remains intubated, started on tube feeding, BP stable, Cr normal, WBC normal Exam/Review of Systems Vital Signs Vitals Vital Signs Date Time Temp Pulse Resp B/P Pulse Ox O2 Delivery O2 Flow Rate FiO2 03/24/16 08:00 97.9 76 24 138/52 100 Mechanical Ventilator 03/24/16 05:38 25 Intake and Output 03/23/16 03/23/16 03/24/16 15:00 23:00 07:00 Intake Total 420.45 ml 891.05 ml 540.60 ml Output Total 120 ml 200 ml Balance 300.45 ml 891.05 ml 340.60 ml Exam GENERAL: Fragile, intubated on ventilator HEENT: Head atraumatic, normocephalic. Sclerae anicteric. Buccal mucosa dry. NECK: Supple, trachea midline. CHEST: Rise symmetrical. Breath sounds diminished at the bases. HEART: S1, S2. ABDOMEN: Soft, distended. Bowel tones hypoactive. EXTREMITIES: no edema Results Result Diagram: 03/24/16 0438 03/24/16 0438 Results 24 hrs Laboratory Tests Test 03/23/16 09:20 03/23/16 22:05 03/24/16 04:38 03/24/16 05:00 Arterial Blood HCO3 23.4 20.3 L Arterial Blood Base Excess 0.2 -2.5 Arterial Blood Oxygen Saturation 98.2 97.2 [place] Test ACCEPTAB ACCEPTAB Arterial Blood Gas Puncture Site Right Radial Right Radial Arterial Blood Carboxyhemoglobin 0.3 0.3 Arterial Blood Date Drawn 03/23/2016 9:30:17 AM 03/24/2016 7:30:30 AM Arterial Blood Methemoglobin 0.4 0.5 Arterial Blood pCO2 (Temp correct) 32.3 L 27.7 L Arterial Blood pH (Temp corrected) 7.478 H 7.483 H Arterial Blood pO2 (Temp corrected) 140.6 H 105.7 H Blood Gas A-a O2 Differential 35.4 H 39.7 H Blood Gas Actual Respiration Rate 35 14 Blood Gas Low PEEP Setting 5.0 5.0 Blood Gas Modality VENT - CPAP VENT - AC Blood Gas Notified Time 03/23/2016 9:58:25 AM 03/24/2016 8:03:16 AM Blood Gas Notified Whom JLD JLD Blood Gas Pressure Support 10 Blood Gas Specimen Source Blood arterial Blood arterial Blood Gas Temperature 37.0 37.0 FiO2 30.0 25.0 Oxyhemoglobin Percent 97.5 96.4 Total Hemoglobin 8.9 L 8.6 L Anion Gap 9 13 Blood Urea Nitrogen 26 H 25 H Calcium Level 6.8 L 6.9 L Carbon Dioxide Level 23 22 Chloride Level 114 H 113 H Creatinine 0.87 0.86 Glucose Level 93 90 Potassium Level 3.3 L 3.8 Sodium Level 143 144 Activated Partial Thromboplast Time 37.4 H Alanine Aminotransferase (ALT/SGPT) 29 Albumin 1.9 L Albumin/Globulin Ratio 0.86 Alkaline Phosphatase 112 Aspartate Amino Transf (AST/SGOT) 29 Basophils # 0.0 Basophils % 0.4 Direct Bilirubin 0.00 Eosinophils # 0.1 Eosinophils % 1.6 Globulin 2.20 Hematocrit 25.0 L Hemoglobin 7.6 L INR International Normalized Ratio 1.19 Indirect Bilirubin 0.0 Lymphocytes # 1.0 Lymphocytes % 12.6 L Mean Corpuscular Hemoglobin 29.5 Mean Corpuscular Hemoglobin Concent 30.4 L Mean Corpuscular Volume 96.9 Mean Platelet Volume 12.4 H Monocytes # 0.7 Monocytes % 9.0 Neutrophils # 6.0 Neutrophils % 75.4 Nucleated Red Blood Cells # 0.0 Nucleated Red Blood Cells % 0.0 Platelet Count 268 Prothrombin Time 15.2 H Prothrombin Time Ratio 1.2 Red Blood Count 2.58 L Red Cell Distribution Width 18.3 H Total Bilirubin 0.0 L Total Protein 4.1 L White Blood Count 7.9 # Blood Gas Respiration Rate 14.0 Blood Gas Tidal Volume 500.0 Medications Medications Current Medications Lorazepam (Ativan) 0.5 mg Q6H PRN IV ANXIETY Last administered on 03/17/16 18: 50; Admin Dose 0.5 MG; Start 02/24/16 at 02:00 Ondansetron HCl (Zofran Inj) 4 mg Q6H PRN IV NAUSEA AND/OR VOMITING Last administered on 03/01/16 13:17; Admin Dose 4 MG; Start 02/24/16 at 02:00 Nitroglycerin (Nitroglycerin (Sl Tab) 0.4 Mg) 1 tab Q5M PRN SL CHEST PAIN; Start 02/24/16 at 02:00 Hydralazine HCl (Apresoline) 10 mg Q6H PRN IV SBP > 160 Last administered on 16:28; Admin Dose 10 MG; Start 02/24/16 at 02:00 Labetalol HCl (Labetalol) 10 mg Q6 PRN IV ELEVATED BLOOD PRESSURE; Start at 23:00 Guaifenesin/ Dextromethorphan (Robitussin Dm Liquid Cup) 5 ml Q6 PRN PO COUGH Last administered on 02/27/16 18:12; Admin Dose 5 ML; Start 02/24/16 at 23:00 Nicotine (Nicoderm 21 Mg/ 24hr) 1 patch DAILY TRANSDERM Last administered on 08:46; Admin Dose 1 PATCH; Start 02/26/16 at 09:00 Levothyroxine Sodium (Synthroid) 25 mcg DAILY@06 PO Last administered on 05:30; Admin Dose 25 MCG; Start 02/28/16 at 06:00 Hydromorphone HCl (Dilaudid) 0.5 mg Q3 PRN IV PAIN Last administered on 02:14; Admin Dose 0.5 MG; Start 03/02/16 at 17:00 Heparin Sodium (Porcine) (Heparin (5000 Units/0.5 ml)) 5,000 unit BID SC Last administered on 03/23/16 21:01; Admin Dose 5,000 UNIT; Start 03/02/16 at 21:30 Dicyclomine HCl (Bentyl) 10 mg BID PO Last administered on 03/23/16 20:56; Admin Dose 10 MG; Start 03/15/16 at 21:00 Metronidazole (Flagyl) 500 mg Q8 PO Last administered on 03/24/16 05:30; Admin Dose 500 MG; Start 03/16/16 at 22:00 Verapamil HCl (Verapamil) 5 mg Q6H PRN IV ELEVATED HEART RATE Last administered on 03/17/16 23:45; Admin Dose 5 MG; Start 03/17/16 at 23:30 Zolpidem Tartrate (Ambien) 5 mg HS PRN PO INSOMNIA Last administered on 23:56; Admin Dose 5 MG; Start 03/17/16 at 23:30 Metoprolol Tartrate (Lopressor) 5 mg Q4H PRN IV ELEVATED HEART RATE Last administered on 03/18/16 01:41; Admin Dose 5 MG; Start 03/18/16 at 01:30 Acetaminophen 650 mg 650 mg Q6H PRN PO PAIN AND OR ELEVATED TEMP Last administered on 03/19/16 01:18; Admin Dose 650 MG; Start 03/18/16 at 23:30 Meropenem 100 ml @ 200 mls/hr Q12 IVPB Last administered on 03/23/16 20:54; Admin Dose 200 MLS/HR; Start 03/19/16 at 09:00 Fluconazole/ Sodium Chloride 50 ml @ 50 mls/hr Q24H IVPB Last administered on 08:46; Admin Dose 50 MLS/HR; Start 03/19/16 at 08:30 Propofol (Diprivan) 100 ml @ 1.692 mls/ hr Q12H IV Last administered on 05:29; Admin Dose 10.152 MLS/HR; Start 03/20/16 at 01:00 Aspirin (Aspirin) 81 mg DAILY NGT Last administered on 03/22/16 08:42; Admin Dose 81 MG; Start 03/21/16 at 09:00 Furosemide (Lasix) 20 mg DAILY IV Last administered on 03/23/16 08:47; Admin Dose 20 MG; Start 03/21/16 at 09:00 Pantoprazole (Protonix Iv) 40 mg DAILY@06 IV Last administered on 03/24/16 05: 30; Admin Dose 40 MG; Start 03/21/16 at 06:00 Collagenase 1 applic 1 applic DAILY TOP Last administered on 03/23/16 09:00; Admin Dose 1 APPLIC; Start 03/21/16 at 15:00 Vancomycin HCl/ Sodium Chloride (Vancocin/NS) 150 ml @ 75 mls/hr Q36H IVPB Last administered on 03/24/16 00:55; Admin Dose 75 MLS/HR; Start 03/22/16 at 13: 00 Metoprolol Tartrate (Lopressor) 25 mg BID PO Last administered on 03/23/16 20: 56; Admin Dose 25 MG; Start 03/22/16 at 21:00 IV Flush 10 ml 10 ml PRN PRN IV IV PROTOCOL; Start 03/22/16 at 12:30 Dextrose/Sodium Chloride (D5-1/2ns) 1,000 ml @ 70 mls/hr [id number] IV Last administered on 03/23/16 12:52; Admin Dose 70 MLS/HR; Start 03/23/16 at 09:00 Hydralazine HCl (Apresoline) 50 mg Q8 PO Last administered on 03/24/16 05:30; Admin Dose 50 MG; Start 03/23/16 at 14:00 Citric Acid/ Sodium Citrate (Bicitra) 30 ml BID NGT ; Start 03/24/16 at 09:00 HOWARD LEVY MD Mar 24, 2016 08:40
[2016-03-24] MEDS: MEROPENEM 500 MG/100 ML (PMX) 100 ML IVPB SCH ×2 (08:59→20:42)
[2016-03-24] MEDS: FLUCONAZOLE 100 MG/NS (PMX) 50 ML IVPB SCH (08:59)
[2016-03-24] MEDS: NICOTINE (21 MG/24 HR) PATCH TRANSDERM SCH (09:00)
[2016-03-24] MEDS: ASPIRIN 81 MG TAB NGT SCH (09:01)
[2016-03-24] MEDS: FUROSEMIDE 20 MG INJ IV SCH (09:01)
[2016-03-24] MEDS: DICYCLOMINE 10 MG CAP PO SCH ×2 (09:01→20:16)
[2016-03-24] MEDS: METOPROLOL 25 MG TAB PO SCH ×2 (09:01→20:16)
[2016-03-24] MEDS: HEPARIN 5,000 UNIT/0.5 ML SYG SC SCH ×2 (09:03→20:43)
[2016-03-24] MEDS: CITRIC ACID/NA CITRATE 30 ML CUP NGT SCH ×2 (09:36→20:15)
--- NOTE | 2016-03-24 09:50 | RADRPT ---
PROCEDURE: XR Chest 1 View. CLINICAL INDICATION: Shortness of breath, respiratory failure TECHNIQUE: AP view of the chest were obtained. COMPARISON: March 22, 2016 FINDINGS: The heart size is within normal limits. Calcified atherosclerosis is noted in the aorta. Endotrache al and nasogastric tubes are stable and appear in grossly appropriate location. Left-sided PICC kimberly e is unchanged. Right perihilar and lower lung infiltrates combined with moderate pleural effusion are stable. Small left pleural effusion is unchanged. Scattered atelectasis is noted in the left l ower lobe. The osseous structures are unchanged. IMPRESSION: Calcified atherosclerosis in the aorta. Stable right perihilar and lower lung infiltrates combined with moderate pleural effusion. Stable small left pleural effusion. Scattered atelectasis in the left lower lobe. RPTAT: AA .Baldemar Dupree MD, Date Time Electronically viewed and signed by .Baldemar Dupree MD, on 03/24/2016 09:50 .P/
--- NOTE | 2016-03-24 10:32 | CONS ---
Date/Time of Note Date/Time of Note DATE: 03/24/16 TIME: 10:30 Consult Date/Type/Reason Admit Date/Time Feb 24, 2016 at 04:06 Type of Consultation: pulmonary Ordering Provider: HOWARD LEVY MD Subjective Patient stable no new events Awake alert on mechanical ventilation Remains hemodynamically stable Objective Thank you Vital Signs Date Time Temp Pulse Resp B/P Pulse Ox O2 Delivery O2 Flow Rate FiO2 03/24/16 08:00 97.9 76 24 138/52 100 Mechanical Ventilator 03/24/16 08:00 25 Intake and Output 03/23/16 03/23/16 03/24/16 15:00 23:00 07:00 Intake Total 420.45 ml 891.05 ml 540.60 ml Output Total 120 ml 200 ml Balance 300.45 ml 891.05 ml 340.60 ml PHYSICAL EXAMINATION GENERAL: Elderly lady comfortable at rest no acute distress. Heart VITAL SIGNS: see below. HEENT: Pupils equal, round, and reactive to light. CARDIAC: S1, S2, tachycardia. CHEST: Diminished air entry bilaterally. ABDOMEN: Mildly distended. No bowel sounds. EXTREMITIES: No cyanosis, clubbing or edema. NEUROLOGIC: No focal deficits. Results/Medications Result Diagram: 03/24/16 0438 03/24/16 0438 Results 24 hrs Laboratory Tests Test 03/23/16 22:05 03/24/16 04:38 03/24/16 05:00 Anion Gap 9 13 Blood Urea Nitrogen 26 H 25 H Calcium Level 6.8 L 6.9 L Carbon Dioxide Level 23 22 Chloride Level 114 H 113 H Creatinine 0.87 0.86 Glucose Level 93 90 Potassium Level 3.3 L 3.8 Sodium Level 143 144 Activated Partial Thromboplast Time 37.4 H Alanine Aminotransferase (ALT/SGPT) 29 Albumin 1.9 L Albumin/Globulin Ratio 0.86 Alkaline Phosphatase 112 Aspartate Amino Transf (AST/SGOT) 29 Basophils # 0.0 Basophils % 0.4 Direct Bilirubin 0.00 Eosinophils # 0.1 Eosinophils % 1.6 Globulin 2.20 Hematocrit 25.0 L Hemoglobin 7.6 L INR International Normalized Ratio 1.19 Indirect Bilirubin 0.0 Lymphocytes # 1.0 Lymphocytes % 12.6 L Mean Corpuscular Hemoglobin 29.5 Mean Corpuscular Hemoglobin Concent 30.4 L Mean Corpuscular Volume 96.9 Mean Platelet Volume 12.4 H Monocytes # 0.7 Monocytes % 9.0 Neutrophils # 6.0 Neutrophils % 75.4 Nucleated Red Blood Cells # 0.0 Nucleated Red Blood Cells % 0.0 Platelet Count 268 Prothrombin Time 15.2 H Prothrombin Time Ratio 1.2 Red Blood Count 2.58 L Red Cell Distribution Width 18.3 H Total Bilirubin 0.0 L Total Protein 4.1 L White Blood Count 7.9 # Arterial Blood HCO3 20.3 L Arterial Blood Base Excess -2.5 Arterial Blood Oxygen Saturation 97.2 [place] Test ACCEPTAB Arterial Blood Gas Puncture Site Right Radial Arterial Blood Carboxyhemoglobin 0.3 Arterial Blood Date Drawn 03/24/2016 7:30:30 AM Arterial Blood Methemoglobin 0.5 Arterial Blood pCO2 (Temp correct) 27.7 L Arterial Blood pH (Temp corrected) 7.483 H Arterial Blood pO2 (Temp corrected) 105.7 H Blood Gas A-a O2 Differential 39.7 H Blood Gas Actual Respiration Rate 14 Blood Gas Low PEEP Setting 5.0 Blood Gas Modality VENT - AC Blood Gas Notified Time 03/24/2016 8:03:16 AM Blood Gas Notified Whom JLD Blood Gas Respiration Rate 14.0 Blood Gas Specimen Source Blood arterial Blood Gas Temperature 37.0 Blood Gas Tidal Volume 500.0 FiO2 25.0 Oxyhemoglobin Percent 96.4 Total Hemoglobin 8.6 L Medications Current Medications Lorazepam (Ativan) 0.5 mg Q6H PRN IV ANXIETY Last administered on 03/17/16 18: 50; Admin Dose 0.5 MG; Start 02/24/16 at 02:00 Ondansetron HCl (Zofran Inj) 4 mg Q6H PRN IV NAUSEA AND/OR VOMITING Last administered on 03/01/16 13:17; Admin Dose 4 MG; Start 02/24/16 at 02:00 Nitroglycerin (Nitroglycerin (Sl Tab) 0.4 Mg) 1 tab Q5M PRN SL CHEST PAIN; Start 02/24/16 at 02:00 Hydralazine HCl (Apresoline) 10 mg Q6H PRN IV SBP > 160 Last administered on 16:28; Admin Dose 10 MG; Start 02/24/16 at 02:00 Labetalol HCl (Labetalol) 10 mg Q6 PRN IV ELEVATED BLOOD PRESSURE; Start at 23:00 Guaifenesin/ Dextromethorphan (Robitussin Dm Liquid Cup) 5 ml Q6 PRN PO COUGH Last administered on 02/27/16 18:12; Admin Dose 5 ML; Start 02/24/16 at 23:00 Nicotine (Nicoderm 21 Mg/ 24hr) 1 patch DAILY TRANSDERM Last administered on 09:00; Admin Dose 1 PATCH; Start 02/26/16 at 09:00 Levothyroxine Sodium (Synthroid) 25 mcg DAILY@06 PO Last administered on 05:30; Admin Dose 25 MCG; Start 02/28/16 at 06:00 Hydromorphone HCl (Dilaudid) 0.5 mg Q3 PRN IV PAIN Last administered on 02:14; Admin Dose 0.5 MG; Start 03/02/16 at 17:00 Heparin Sodium (Porcine) (Heparin (5000 Units/0.5 ml)) 5,000 unit BID SC Last administered on 03/24/16 09:03; Admin Dose 5,000 UNIT; Start 03/02/16 at 21:30 Dicyclomine HCl (Bentyl) 10 mg BID PO Last administered on 03/24/16 09:01; Admin Dose 10 MG; Start 03/15/16 at 21:00 Metronidazole (Flagyl) 500 mg Q8 PO Last administered on 03/24/16 05:30; Admin Dose 500 MG; Start 03/16/16 at 22:00 Verapamil HCl (Verapamil) 5 mg Q6H PRN IV ELEVATED HEART RATE Last administered on 03/17/16 23:45; Admin Dose 5 MG; Start 03/17/16 at 23:30 Zolpidem Tartrate (Ambien) 5 mg HS PRN PO INSOMNIA Last administered on 23:56; Admin Dose 5 MG; Start 03/17/16 at 23:30 Metoprolol Tartrate (Lopressor) 5 mg Q4H PRN IV ELEVATED HEART RATE Last administered on 03/18/16 01:41; Admin Dose 5 MG; Start 03/18/16 at 01:30 Acetaminophen 650 mg 650 mg Q6H PRN PO PAIN AND OR ELEVATED TEMP Last administered on 03/19/16 01:18; Admin Dose 650 MG; Start 03/18/16 at 23:30 Meropenem 100 ml @ 200 mls/hr Q12 IVPB Last administered on 03/24/16 08:59; Admin Dose 200 MLS/HR; Start 03/19/16 at 09:00 Fluconazole/ Sodium Chloride 50 ml @ 50 mls/hr Q24H IVPB Last administered on 08:59; Admin Dose 50 MLS/HR; Start 03/19/16 at 08:30 Propofol (Diprivan) 100 ml @ 1.692 mls/ hr Q12H IV Last administered on 05:29; Admin Dose 10.152 MLS/HR; Start 03/20/16 at 01:00 Aspirin (Aspirin) 81 mg DAILY NGT Last administered on 03/24/16 09:01; Admin Dose 81 MG; Start 03/21/16 at 09:00 Furosemide (Lasix) 20 mg DAILY IV Last administered on 03/24/16 09:01; Admin Dose 20 MG; Start 03/21/16 at 09:00 Pantoprazole (Protonix Iv) 40 mg DAILY@06 IV Last administered on 03/24/16 05: 30; Admin Dose 40 MG; Start 03/21/16 at 06:00 Collagenase 1 applic 1 applic DAILY TOP Last administered on 03/23/16 09:00; Admin Dose 1 APPLIC; Start 03/21/16 at 15:00 Vancomycin HCl/ Sodium Chloride (Vancocin/NS) 150 ml @ 75 mls/hr Q36H IVPB Last administered on 03/24/16 00:55; Admin Dose 75 MLS/HR; Start 03/22/16 at 13: 00 Metoprolol Tartrate (Lopressor) 25 mg BID PO Last administered on 03/24/16 09: 01; Admin Dose 25 MG; Start 03/22/16 at 21:00 IV Flush 10 ml 10 ml PRN PRN IV IV PROTOCOL; Start 03/22/16 at 12:30 Dextrose/Sodium Chloride (D5-1/2ns) 1,000 ml @ 70 mls/hr [id number] IV Last administered on 03/23/16 12:52; Admin Dose 70 MLS/HR; Start 03/23/16 at 09:00 Hydralazine HCl (Apresoline) 50 mg Q8 PO Last administered on 03/24/16 05:30; Admin Dose 50 MG; Start 03/23/16 at 14:00 Citric Acid/ Sodium Citrate (Bicitra) 30 ml BID NGT Last administered on 09:36; Admin Dose 30 ML; Start 03/24/16 at 09:00 Assessment/Plan Chief Complaint/Hosp Course Assessment 1. Right pleural effusion status post thoracentesis. Repeat chest x-ray shows recurrence of right effusion. Hypoxemic respiratory failure 2. History of bowel obstruction status post surgery. Pancolitis on CT 3. Deconditioning 4. History of fall with pneumothorax Plan 1. Surgical recommendations 2. Continue physical therapy 3. Renal recommendations 4. Aspiration precautions 5. CPAP weaning trial 6. Thoracentesis right lung Problems: RUBEN ARRINGTON MD, [facility] Mar 24, 2016 10:31
--- NOTE | 2016-03-24 11:12 | CONS ---
Date/Time of Note Date/Time of Note DATE: 03/24/16 TIME: 11:09 Assessment/Plan Assessment/Plan Chief Complaint/Hosp Course IMPRESSION: 1. Positive troponin, assess significance in the setting of renal failure, status post code blue with respiratory arrest.-slowly downtrending 2. Cardiomyopathy with decreased left ventricular ejection fraction/CHF- systolic acute on chronic. last EF being approximately 35% by echo. 3. Abnormal electrocardiogram, assess for acute coronary syndrome. 4. Hypotension-now improved with HTN 5. Anemia. 6. Renal failure-improving 7. Hypokalemia s/p repletion 8. Hypernatremia-improved 9. Hemothorax status post VATS with decortication. 10. Status post pulmonary arrest. 11. Anemia. 12. Lower extremity edema. Recc: -tele -serial ecg's -Increase lasix diuresis and follow volume status closely -Continue abx's and f/u cx data -Continue BB/hydralazine and follow BP closely -Wean vent as tolerated Problems: Consultation Date/Type/Reason Admit Date/Time Feb 24, 2016 at 04:06 Initial Consult Date 03/20/16 Type of Consultation: Cardiology Reason for Consultation positive troponin Referring Provider: HOWARD LEVY MD Exam/Review of Systems Vital Signs Vitals Vital Signs Date Time Temp Pulse Resp B/P Pulse Ox O2 Delivery O2 Flow Rate FiO2 03/24/16 08:00 97.9 76 24 138/52 100 Mechanical Ventilator 03/24/16 08:00 25 Intake and Output 03/23/16 03/23/16 03/24/16 15:00 23:00 07:00 Intake Total 420.45 ml 891.05 ml 540.60 ml Output Total 120 ml 200 ml Balance 300.45 ml 891.05 ml 340.60 ml Exam Review of Systems: CONSTITUTIONAL: No fevers, chills. PULMONARY: intubated CARDIOVASCULAR: No obvious chest pain/palpitations GASTROINTESTINAL: No nausea/vomiting. GENITOURINARY: No hematuria/dysuria. MUSCULOSKELETAL: No obvious myagias/arthalgias. PSYCHIATRIC: The patient denies depression. NEUROLOGIC: No documented depression Constitutional: alert Psych: no complaints Head: normocephalic ENMT: intubated Neck: jvd (9 cm water) Respiratory: diminished breath sounds (at bases/B) Cardiovascular: regular rate and rhythm Gastrointestinal: non-tender, soft Musculoskeletal: muscle tone (normal) Extremities: pitting pedal edema (Bilateral LE) Neurological: other (No focal deficits) Results Result Diagram: 03/24/16 0438 03/24/16 0438 Results 24 hrs Laboratory Tests Test 03/23/16 22:05 03/24/16 04:38 03/24/16 05:00 Anion Gap 9 13 Blood Urea Nitrogen 26 H 25 H Calcium Level 6.8 L 6.9 L Carbon Dioxide Level 23 22 Chloride Level 114 H 113 H Creatinine 0.87 0.86 Glucose Level 93 90 Potassium Level 3.3 L 3.8 Sodium Level 143 144 Activated Partial Thromboplast Time 37.4 H Alanine Aminotransferase (ALT/SGPT) 29 Albumin 1.9 L Albumin/Globulin Ratio 0.86 Alkaline Phosphatase 112 Aspartate Amino Transf (AST/SGOT) 29 Basophils # 0.0 Basophils % 0.4 Direct Bilirubin 0.00 Eosinophils # 0.1 Eosinophils % 1.6 Globulin 2.20 Hematocrit 25.0 L Hemoglobin 7.6 L INR International Normalized Ratio 1.19 Indirect Bilirubin 0.0 Lymphocytes # 1.0 Lymphocytes % 12.6 L Mean Corpuscular Hemoglobin 29.5 Mean Corpuscular Hemoglobin Concent 30.4 L Mean Corpuscular Volume 96.9 Mean Platelet Volume 12.4 H Monocytes # 0.7 Monocytes % 9.0 Neutrophils # 6.0 Neutrophils % 75.4 Nucleated Red Blood Cells # 0.0 Nucleated Red Blood Cells % 0.0 Platelet Count 268 Prothrombin Time 15.2 H Prothrombin Time Ratio 1.2 Red Blood Count 2.58 L Red Cell Distribution Width 18.3 H Total Bilirubin 0.0 L Total Protein 4.1 L White Blood Count 7.9 # Arterial Blood HCO3 20.3 L Arterial Blood Base Excess -2.5 Arterial Blood Oxygen Saturation 97.2 Kaiden Test ACCEPTAB Arterial Blood Gas Puncture Site Right Radial Arterial Blood Carboxyhemoglobin 0.3 Arterial Blood Date Drawn 03/24/2016 7:30:30 AM Arterial Blood Methemoglobin 0.5 Arterial Blood pCO2 (Temp correct) 27.7 L Arterial Blood pH (Temp corrected) 7.483 H Arterial Blood pO2 (Temp corrected) 105.7 H Blood Gas A-a O2 Differential 39.7 H Blood Gas Actual Respiration Rate 14 Blood Gas Low PEEP Setting 5.0 Blood Gas Modality VENT - AC Blood Gas Notified Time 03/24/2016 8:03:16 AM Blood Gas Notified Whom JLD Blood Gas Respiration Rate 14.0 Blood Gas Specimen Source Blood arterial Blood Gas Temperature 37.0 Blood Gas Tidal Volume 500.0 FiO2 25.0 Oxyhemoglobin Percent 96.4 Total Hemoglobin 8.6 L Medications Medications Current Medications Lorazepam (Ativan) 0.5 mg Q6H PRN IV ANXIETY Last administered on 03/17/16 18: 50; Admin Dose 0.5 MG; Start 02/24/16 at 02:00 Ondansetron HCl (Zofran Inj) 4 mg Q6H PRN IV NAUSEA AND/OR VOMITING Last administered on 03/01/16 13:17; Admin Dose 4 MG; Start 02/24/16 at 02:00 Nitroglycerin (Nitroglycerin (Sl Tab) 0.4 Mg) 1 tab Q5M PRN SL CHEST PAIN; Start 02/24/16 at 02:00 Hydralazine HCl (Apresoline) 10 mg Q6H PRN IV SBP > 160 Last administered on 16:28; Admin Dose 10 MG; Start 02/24/16 at 02:00 Labetalol HCl (Labetalol) 10 mg Q6 PRN IV ELEVATED BLOOD PRESSURE; Start at 23:00 Guaifenesin/ Dextromethorphan (Robitussin Dm Liquid Cup) 5 ml Q6 PRN PO COUGH Last administered on 02/27/16 18:12; Admin Dose 5 ML; Start 02/24/16 at 23:00 Nicotine (Nicoderm 21 Mg/ 24hr) 1 patch DAILY TRANSDERM Last administered on 09:00; Admin Dose 1 PATCH; Start 02/26/16 at 09:00 Levothyroxine Sodium (Synthroid) 25 mcg DAILY@06 PO Last administered on 05:30; Admin Dose 25 MCG; Start 02/28/16 at 06:00 Hydromorphone HCl (Dilaudid) 0.5 mg Q3 PRN IV PAIN Last administered on 02:14; Admin Dose 0.5 MG; Start 03/02/16 at 17:00 Heparin Sodium (Porcine) (Heparin (5000 Units/0.5 ml)) 5,000 unit BID SC Last administered on 03/24/16 09:03; Admin Dose 5,000 UNIT; Start 03/02/16 at 21:30 Dicyclomine HCl (Bentyl) 10 mg BID PO Last administered on 03/24/16 09:01; Admin Dose 10 MG; Start 03/15/16 at 21:00 Metronidazole (Flagyl) 500 mg Q8 PO Last administered on 03/24/16 05:30; Admin Dose 500 MG; Start 03/16/16 at 22:00 Verapamil HCl (Verapamil) 5 mg Q6H PRN IV ELEVATED HEART RATE Last administered on 03/17/16 23:45; Admin Dose 5 MG; Start 03/17/16 at 23:30 Zolpidem Tartrate (Ambien) 5 mg HS PRN PO INSOMNIA Last administered on 23:56; Admin Dose 5 MG; Start 03/17/16 at 23:30 Metoprolol Tartrate (Lopressor) 5 mg Q4H PRN IV ELEVATED HEART RATE Last administered on 03/18/16 01:41; Admin Dose 5 MG; Start 03/18/16 at 01:30 Acetaminophen 650 mg 650 mg Q6H PRN PO PAIN AND OR ELEVATED TEMP Last administered on 03/19/16 01:18; Admin Dose 650 MG; Start 03/18/16 at 23:30 Meropenem 100 ml @ 200 mls/hr Q12 IVPB Last administered on 03/24/16 08:59; Admin Dose 200 MLS/HR; Start 03/19/16 at 09:00 Fluconazole/ Sodium Chloride 50 ml @ 50 mls/hr Q24H IVPB Last administered on 08:59; Admin Dose 50 MLS/HR; Start 03/19/16 at 08:30 Propofol (Diprivan) 100 ml @ 1.692 mls/ hr Q12H IV Last administered on 05:29; Admin Dose 10.152 MLS/HR; Start 03/20/16 at 01:00 Aspirin (Aspirin) 81 mg DAILY NGT Last administered on 03/24/16 09:01; Admin Dose 81 MG; Start 03/21/16 at 09:00 Furosemide (Lasix) 20 mg DAILY IV Last administered on 03/24/16 09:01; Admin Dose 20 MG; Start 03/21/16 at 09:00 Pantoprazole (Protonix Iv) 40 mg DAILY@06 IV Last administered on 03/24/16 05: 30; Admin Dose 40 MG; Start 03/21/16 at 06:00 Collagenase 1 applic 1 applic DAILY TOP Last administered on 03/23/16 09:00; Admin Dose 1 APPLIC; Start 03/21/16 at 15:00 Vancomycin HCl/ Sodium Chloride (Vancocin/NS) 150 ml @ 75 mls/hr Q36H IVPB Last administered on 03/24/16 00:55; Admin Dose 75 MLS/HR; Start 03/22/16 at 13: 00 Metoprolol Tartrate (Lopressor) 25 mg BID PO Last administered on 03/24/16 09: 01; Admin Dose 25 MG; Start 03/22/16 at 21:00 IV Flush 10 ml 10 ml PRN PRN IV IV PROTOCOL; Start 03/22/16 at 12:30 Dextrose/Sodium Chloride (D5-1/2ns) 1,000 ml @ 70 mls/hr [id number] IV Last administered on 03/23/16 12:52; Admin Dose 70 MLS/HR; Start 03/23/16 at 09:00 Hydralazine HCl (Apresoline) 50 mg Q8 PO Last administered on 03/24/16 05:30; Admin Dose 50 MG; Start 03/23/16 at 14:00 Citric Acid/ Sodium Citrate (Bicitra) 30 ml BID NGT Last administered on 09:36; Admin Dose 30 ML; Start 03/24/16 at 09:00 KORINA OCONNOR Mar 24, 2016 11:12
--- NOTE | 2016-03-24 11:57 | PN ---
DATE: 03/24/2016 SUBJECTIVE: No acute events overnight. The patient is awake, comfortable on vent. No fevers. LABORATORY: WBC 7.9, H and H 7.6 and 25, platelets 268, neutrophils 75.4. BUN 25, creatinine 0.86. INDWELLINGS: Endotracheal tube, NG tube, Francois, PICC line placed on 03/22/2016. ANTIMICROBIALS: 1. Vancomycin, day #6. 2. Meropenem, day #6. 3. Flagyl. 4. Fluconazole. PHYSICAL EXAMINATION: GENERAL: This is a fragile, elderly woman who is alert, comfortable on vent. The patient is in no distress. HEENT: Head atraumatic, normocephalic. Sclerae anicteric. Buccal mucosa pink. NECK: Supple, trachea midline. CHEST: Rise symmetrical. Breath sounds diminished at the bases. HEART: S1, S2. ABDOMEN: Soft, bowel sounds present. EXTREMITIES: Bilateral edema. ASSESSMENT: 1. Resolving sepsis. 2. Acute respiratory failure, possibly aspiration event, intubated. 3. Resolving left lower extremity cellulitis. 4. Pancolitis. 5. Pleural effusion, status post thoracentesis last week with fluid cultures being negative. 6. Status post fungal urinary tract infection. 7. History of fall with cervical spine injury, pneumothorax status post VATS, chest tube placement, removed. PLAN: The patient remains stable and doing better. Her H and H dropped today. She is being follow ed by gastroenterology. She also is being seen by multiple consultants. We will change Diflucan to oral administration. Continue her on vancomycin, Merrem. Keep left lower extremity elevated. Carroll p her on Flagyl, continue weaning trials as per pulmonary. Blood transfusion p.r.n. Dictated By: PHOEBE BANDA TOOTH INSPECTOR for JUAN HUGHES MD NI/NTS Conf#: [id number] DID#: [id number]
[2016-03-24 12:49] LABS: AADO2 Arterial 49.3 mmHg (7.0-24.0); Allen Test ACCEPTAB; Arterial Base Excess -0.3 mmol/L (-3.0-3); Arterial COHb 0.3 % (0.0-3.0); Arterial HCO3 22.4 mmol/L (22.0-26.0); Arterial MetHb 0.4 % (0.0-1.5); Arterial Total Hemglobin 8.6 g/dl (12.0-18.0); Blood Gas PS 10; MODE VENT - CPAP
[2016-03-24] MEDS: COLLAGENASE 30 GM TUBE TOP SCH (13:56)
[2016-03-24] MEDS: DEXTROSE 5%-0.45% NACL 1,000 ML IV SCH (14:15)
[2016-03-24] MEDS ORDERED: FUROSEMIDE 20 MG INJ IV ONE (15:30)
--- NOTE | 2016-03-24 15:47 | CONS ---
Date/Time of Note Date/Time of Note DATE: 03/24/16 TIME: 15:45 Assessment/Plan Assessment/Plan Additional Assessment/Plan Additional Assessment/Plan Impression: 1. Pancolitis: likely ischemic. c.difficile negative, no infarct on laparotomy exam, culture, wbc in stool negative. 2. Fracture of the ribs. 3. Pneumothorax status post chest tube placement. 4. History of nicotine addiction. 5. Cervical spine injury. 6. History of fall. 7. Peripheral arterial disease. 8. Mild elevation of alkaline phosphatase, most probably related to alcoholic liver disease. 9. Anemia. 10. dysphagia on tube feeds 11.s/p exploratory laparotomy,no bowel resection 13. renal failure,improving [address] shows anasarca ascites, pleural effusion,colitis worsening 16 respiratory failure,extubated 17 leucocytosis,trending down PLAN: Plan continue all supportive care swallow eval,if passes the po feeding Consultation Date/Type/Reason Admit Date/Time Feb 24, 2016 at 04:06 Type of Consultation: Cardiology Referring Provider: HOWARD LEVY MD 24 HR Interval Summary Free Text/Dictation extubated Constitutional: improved Exam/Review of Systems Vital Signs Vitals Vital Signs Date Time Temp Pulse Resp B/P Pulse Ox O2 Delivery O2 Flow Rate FiO2 03/24/16 14:10 100 03/24/16 12:30 77 26 149/65 Mechanical Ventilator 03/24/16 12:00 98.7 03/24/16 11:10 25 Intake and Output 03/23/16 03/23/16 03/24/16 15:00 23:00 07:00 Intake Total 420.45 ml 891.05 ml 540.60 ml Output Total 120 ml 200 ml Balance 300.45 ml 891.05 ml 340.60 ml Exam Constitutional: alert, oriented, well developed Psych: nl mood/affect, no complaints Head: atraumatic, normocephalic Eyes: EOMI, PERRL, nl conjunctiva, nl lids, nl sclera ENMT: nl external ears & nose, nl lips & teeth, nl nasal mucosa & septum Neck: non-tender, supple Respiratory: clear to auscultation, normal air movement Cardiovascular: nl pulses, regular rate and rhythm Gastrointestinal: nl liver, spleen, non-tender, soft Musculoskeletal: nl extremities to inspection, nl gait and stance Extremities: normal pulses Neurological: MICRO PALEONTOLOGIST II-XII intact, nl mental status, nl speech, nl strength Skin: nl turgor, No rash or lesions Lymph: nl lymph nodes Results Result Diagram: 03/24/16 0438 03/24/16 0438 Results 24 hrs Laboratory Tests Test 03/23/16 22:05 03/24/16 04:38 03/24/16 05:00 03/24/16 12:40 Anion Gap 9 13 Blood Urea Nitrogen 26 H 25 H Calcium Level 6.8 L 6.9 L Carbon Dioxide Level 23 22 Chloride Level 114 H 113 H Creatinine 0.87 0.86 Glucose Level 93 90 Potassium Level 3.3 L 3.8 Sodium Level 143 144 Activated Partial Thromboplast Time 37.4 H Alanine Aminotransferase (ALT/SGPT) 29 Albumin 1.9 L Albumin/Globulin Ratio 0.86 Alkaline Phosphatase 112 Aspartate Amino Transf (AST/SGOT) 29 Basophils # 0.0 Basophils % 0.4 Direct Bilirubin 0.00 Eosinophils # 0.1 Eosinophils % 1.6 Globulin 2.20 Hematocrit 25.0 L Hemoglobin 7.6 L INR International Normalized Ratio 1.19 Indirect Bilirubin 0.0 Lymphocytes # 1.0 Lymphocytes % 12.6 L Mean Corpuscular Hemoglobin 29.5 Mean Corpuscular Hemoglobin Concent 30.4 L Mean Corpuscular Volume 96.9 Mean Platelet Volume 12.4 H Monocytes # 0.7 Monocytes % 9.0 Neutrophils # 6.0 Neutrophils % 75.4 Nucleated Red Blood Cells # 0.0 Nucleated Red Blood Cells % 0.0 Platelet Count 268 Prothrombin Time 15.2 H Prothrombin Time Ratio 1.2 Red Blood Count 2.58 L Red Cell Distribution Width 18.3 H Total Bilirubin 0.0 L Total Protein 4.1 L White Blood Count 7.9 # Arterial Blood HCO3 20.3 L 22.4 Arterial Blood Base Excess -2.5 -0.3 Arterial Blood Oxygen Saturation 97.2 96.7 Kaiden Test ACCEPTAB ACCEPTAB Arterial Blood Gas Puncture Site Right Radial Right Radial Arterial Blood Carboxyhemoglobin 0.3 0.3 Arterial Blood Date Drawn 03/24/2016 7:30:30 AM 03/24/2016 12:30:28 PM Arterial Blood Methemoglobin 0.5 0.4 Arterial Blood pCO2 (Temp correct) 27.7 L 29.2 L Arterial Blood pH (Temp corrected) 7.483 H 7.502 H Arterial Blood pO2 (Temp corrected) 105.7 H 94.3 H Blood Gas A-a O2 Differential 39.7 H 49.3 H Blood Gas Actual Respiration Rate 14 Blood Gas Low PEEP Setting 5.0 5.0 Blood Gas Modality VENT - AC VENT - CPAP Blood Gas Notified Time 03/24/2016 8:03:16 AM 03/24/2016 12:49:18 PM Blood Gas Notified Whom JLD JLD Blood Gas Respiration Rate 14.0 Blood Gas Specimen Source Blood arterial Blood arterial Blood Gas Temperature 37.0 37.0 Blood Gas Tidal Volume 500.0 FiO2 25.0 25.0 Oxyhemoglobin Percent 96.4 96.0 Total Hemoglobin 8.6 L 8.6 L Blood Gas Pressure Support 10 Medications Medications Current Medications Lorazepam (Ativan) 0.5 mg Q6H PRN IV ANXIETY Last administered on 03/17/16 18: 50; Admin Dose 0.5 MG; Start 02/24/16 at 02:00 Ondansetron HCl (Zofran Inj) 4 mg Q6H PRN IV NAUSEA AND/OR VOMITING Last administered on 03/01/16 13:17; Admin Dose 4 MG; Start 02/24/16 at 02:00 Nitroglycerin (Nitroglycerin (Sl Tab) 0.4 Mg) 1 tab Q5M PRN SL CHEST PAIN; Start 02/24/16 at 02:00 Hydralazine HCl (Apresoline) 10 mg Q6H PRN IV SBP > 160 Last administered on 16:28; Admin Dose 10 MG; Start 02/24/16 at 02:00 Labetalol HCl (Labetalol) 10 mg Q6 PRN IV ELEVATED BLOOD PRESSURE; Start at 23:00 Guaifenesin/ Dextromethorphan (Robitussin Dm Liquid Cup) 5 ml Q6 PRN PO COUGH Last administered on 02/27/16 18:12; Admin Dose 5 ML; Start 02/24/16 at 23:00 Nicotine (Nicoderm 21 Mg/ 24hr) 1 patch DAILY TRANSDERM Last administered on 09:00; Admin Dose 1 PATCH; Start 02/26/16 at 09:00 Levothyroxine Sodium (Synthroid) 25 mcg DAILY@06 PO Last administered on 05:30; Admin Dose 25 MCG; Start 02/28/16 at 06:00 Hydromorphone HCl (Dilaudid) 0.5 mg Q3 PRN IV PAIN Last administered on 02:14; Admin Dose 0.5 MG; Start 03/02/16 at 17:00 Heparin Sodium (Porcine) (Heparin (5000 Units/0.5 ml)) 5,000 unit BID SC Last administered on 03/24/16 09:03; Admin Dose 5,000 UNIT; Start 03/02/16 at 21:30 Dicyclomine HCl (Bentyl) 10 mg BID PO Last administered on 03/24/16 09:01; Admin Dose 10 MG; Start 03/15/16 at 21:00 Metronidazole (Flagyl) 500 mg Q8 PO Last administered on 03/24/16 14:15; Admin Dose 500 MG; Start 03/16/16 at 22:00 Verapamil HCl (Verapamil) 5 mg Q6H PRN IV ELEVATED HEART RATE Last administered on 03/17/16 23:45; Admin Dose 5 MG; Start 03/17/16 at 23:30 Zolpidem Tartrate (Ambien) 5 mg HS PRN PO INSOMNIA Last administered on 23:56; Admin Dose 5 MG; Start 03/17/16 at 23:30 Metoprolol Tartrate (Lopressor) 5 mg Q4H PRN IV ELEVATED HEART RATE Last administered on 03/18/16 01:41; Admin Dose 5 MG; Start 03/18/16 at 01:30 Acetaminophen 650 mg 650 mg Q6H PRN PO PAIN AND OR ELEVATED TEMP Last administered on 03/19/16 01:18; Admin Dose 650 MG; Start 03/18/16 at 23:30 Meropenem 100 ml @ 200 mls/hr Q12 IVPB Last administered on 03/24/16 08:59; Admin Dose 200 MLS/HR; Start 03/19/16 at 09:00 Propofol (Diprivan) 100 ml @ 1.692 mls/ hr Q12H IV Last administered on 05:29; Admin Dose 10.152 MLS/HR; Start 03/20/16 at 01:00 Aspirin (Aspirin) 81 mg DAILY NGT Last administered on 03/24/16 09:01; Admin Dose 81 MG; Start 03/21/16 at 09:00 Furosemide (Lasix) 20 mg DAILY IV Last administered on 03/24/16 09:01; Admin Dose 20 MG; Start 03/21/16 at 09:00 Pantoprazole (Protonix Iv) 40 mg DAILY@06 IV Last administered on 03/24/16 05: 30; Admin Dose 40 MG; Start 03/21/16 at 06:00 Collagenase 1 applic 1 applic DAILY TOP Last administered on 03/24/16 13:56; Admin Dose 1 APPLIC; Start 03/21/16 at 15:00 Vancomycin HCl/ Sodium Chloride (Vancocin/NS) 150 ml @ 75 mls/hr Q36H IVPB Last administered on 03/24/16 00:55; Admin Dose 75 MLS/HR; Start 03/22/16 at 13: 00 Metoprolol Tartrate (Lopressor) 25 mg BID PO Last administered on 03/24/16 09: 01; Admin Dose 25 MG; Start 03/22/16 at 21:00 IV Flush 10 ml 10 ml PRN PRN IV IV PROTOCOL; Start 03/22/16 at 12:30 Dextrose/Sodium Chloride (D5-1/2ns) 1,000 ml @ 70 mls/hr [id number] IV Last administered on 03/24/16 14:15; Admin Dose 70 MLS/HR; Start 03/23/16 at 09:00 Hydralazine HCl (Apresoline) 50 mg Q8 PO Last administered on 03/24/16 14:15; Admin Dose 50 MG; Start 03/23/16 at 14:00 Citric Acid/ Sodium Citrate (Bicitra) 30 ml BID NGT Last administered on 09:36; Admin Dose 30 ML; Start 03/24/16 at 09:00 Miscellaneous Information (*Rx Drug Level Order Reminder*) 1 ONCE ONCE XX ; Start 03/25/16 at 12:00; Stop 03/25/16 at 12:01 Fluconazole (Diflucan) 100 mg DAILY PO ; Start 03/25/16 at 09:00 CHARISSA WILHELM MD Mar 24, 2016 15:47
[2016-03-24] MEDS ORDERED: LIDOCAINE 1% (MPF) 5 ML VIAL ONE (17:17)
--- NOTE | 2016-03-24 17:49 | RADRPT ---
PROCEDURE: XR Chest. CLINICAL INDICATION: Status post thoracentesis. TECHNIQUE: Single frontal view of the chest was obtained COMPARISON: Chest x-ray 03/24/[address] chest angiogram February 24, 2016. FINDINGS: A PICC line catheter enters to the left arm with its tip in the right atrium superior vena cava junc tion. The right pleural effusion seen on the earlier study has improved. The right lower lobe infi ltrate has nearly resolved. Some vague infiltrate may persist in the medial aspects of the right le ft lower lobes with elevation right diaphragm still noted. There are monitor electrodes draped acro ss the chest. There are degenerative osteophytes in the thoracic spine. Previously described fract ures of the T3-T12 and L1-L4 transverse process fractures are not appreciated on the chest x-ray. IMPRESSION: 1. Persistent elevation of the right diaphragm with consolidative infiltrate or atelectasis in the m edial aspect of the right lower lobe which is less extensive when compared to 03/24/2016 at 2017 tegan rs. 2. Interval decrease in the size of the right pleural effusion since the prior study with no pneumo thorax identified. 3. A PICC line catheter is well positioned in the superior vena cava. 4. Spondylosis of the thoracic spine. RPTAT:AAJJ Physician Shayna Date Time Electronically viewed and signed by Physician Shayna on 03/24/2016 17:49 [facility]/
--- NOTE | 2016-03-24 18:15 | RADRPT ---
PROCEDURE: US guided right thoracentesis. CLINICAL INDICATION: Shortness of breath. Right pleural effusion. TECHNIQUE: Prior to the procedure, informed consent was obtained. The risks, benefits, and alternatives were e xplained to the patient, including but not limited to bleeding, infection, pain, visceral or vascula r damage, shock, pneumothorax, chest tube placement, air embolism, and . The patient understoo d the risks and the alternatives and wished to proceed with the study. Informed written consent was obtained. A procedural pause was performed. The patient's name, date of , and procedure to be performed were verified. Ultrasound of the right hemithorax was performed in the axial and sagittal planes. A right pleural e ffusion is noted. Utilizing ultrasound guidance, optimal location for entry to the pleural cavity wa s ascertained. The overlying skin was prepped and draped in the usual sterile fashion. Approximate ly 10 ml of 1% Xylocaine was injected locally for pain control. Using ultrasound guidance, a 5-Fren ch Yueh catheter was introduced into the right pleural space without difficulty. Fluid was aspirated and sent to the laboratory. COMPARISON: Chest radiograph 03/24/2016. FINDINGS: Initial ultrasound demonstrates fluid in the right pleural space. Approximately 500 ml of serous f luid was aspirated. IMPRESSION: Successful ultrasound-guided right thoracentesis. RPTAT: HFN .Carlton Apple MD, MD Date Time Electronically viewed and signed by .Carlton Apple MD, MD on 03/24/2016 18:15 .N/
[2016-03-24] MEDS: HYDROmorphONE 1 MG/ML SYG IV PRN (19:01)
[2016-03-24 20:01] LABS: FLUID GLUCOSE 93 mg/dl; FLUID LD 362 U/L; FLUID TOTAL PROTEIN < 2.0 g/dl; FLUID TYPE THORACENTESIS FLUID
[2016-03-24 20:02] LABS: FLUID TYPE THORACENTESIS FLUID
[2016-03-24 22:39] LABS: FLUID APPEARANCE CLEAR; FLUID RBC EST 1+; FLUID TYPE PLEURAL; FLUID WBC'S 89 /cmm
[2016-03-24 22:40] LABS: FLUID MONOCYTES 79 %
[2016-03-24 22:41] LABS: FLUID NEUTROPHILS 21 %
[2016-03-25] VITALS (42 sets, daily range): BP systolic 115–151; BP diastolic 42–104; PULSE 61–85; RESP 14–33
[2016-03-25] MEDS: PROPOFOL 100 ML IV SCH (00:02)
[2016-03-25 05:19] LABS: AADO2 Arterial 63.5 mmHg (7.0-24.0); Allen Test ACCEPTAB; Arterial Base Excess -3.2 mmol/L (-3.0-3); Arterial COHb 0.3 % (0.0-3.0); Arterial Fraction of Oxyhgb 95.5 % (93.0-99.0); Arterial HCO3 20.4 mmol/L (22.0-26.0); Arterial MetHb 0.3 % (0.0-1.5); Arterial Total Hemglobin 11.1 g/dl (12.0-18.0); MODE NASAL CANNULA
[2016-03-25 05:45] LABS: ADD SCAN DIFF NO
[2016-03-25 05:58] LABS: BASOPHILS % 0.6 % (0.0-2.0); EOSINOPHILS # 0.1 10^3/ul (0.0-0.5); EOSINOPHILS % 1.3 % (0.0-7.0); HEMATOCRIT 29.6 % (37.0-47.0); HEMOGLOBIN 9.3 g/dl (12.0-16.0); LYMPHOCYTES % 15.1 % (15.0-51.0); MEAN CORPUSCULAR HEMOGLOBIN 29.6 pg (29.0-33.0); MEAN CORPUSCULAR HGB CONC 31.4 g/dl (32.0-37.0); MEAN CORPUSCULAR VOLUME 94.3 fl (82.0-101.0); MEAN PLATELET VOLUME 12.5 fl (7.4-10.4); MONOCYTE # 0.7 10^3/ul (0.3-0.9); NEUTROPHIL # 4.8 10^3/ul (1.6-7.5); NEUTROPHILS % 72.1 % (39.0-77.0); PLATELET COUNT 245 10^3/UL (140-415); RED BLOOD COUNT 3.14 10^6/ul (4.20-5.40); RED CELL DISTRIBUTION WIDTH 19.1 % (11.5-14.5); WHITE BLOOD COUNT 6.7 10^3/ul (4.8-10.8)
[2016-03-25 05:59] LABS: INR 1.27; PT RATIO 1.3
[2016-03-25 06:00] LABS: PARTIAL THROMBOPLASTIN TIME 36.5 Sec (25.0-35.0)
[2016-03-25] MEDS: metroNIDAZOLE 500 MG TAB PO SCH ×3 (06:00→21:03)
[2016-03-25] MEDS: LEVOTHYROXINE 25 MCG TAB PO SCH (06:00)
[2016-03-25] MEDS: DEXTROSE 5%-0.45% NACL 1,000 ML IV SCH (06:18)
[2016-03-25] MEDS: PANTOPRAZOLE 40 MG INJ IV SCH (06:18)
[2016-03-25 06:22] LABS: CREATININE 0.71 mg/dl (0.44-1.00)
[2016-03-25 06:23] LABS: CALCIUM 6.9 mg/dl (8.4-10.2)
[2016-03-25 06:43] LABS: POTASSIUM 2.7 mmol/L (3.5-5.1)
[2016-03-25] MEDS: POTASSIUM CHLORIDE 50 ML IVPB PRN ×3 (07:24→12:01)
[2016-03-25 08:53] LABS: AADO2 Arterial 58.7 mmHg (7.0-24.0); Allen Test ACCEPTAB; Arterial Base Excess -1.4 mmol/L (-3.0-3); Arterial COHb 0.3 % (0.0-3.0); Arterial Fraction of Oxyhgb 96.1 % (93.0-99.0); Arterial HCO3 21.9 mmol/L (22.0-26.0); Arterial MetHb 0.4 % (0.0-1.5); Arterial Total Hemglobin 10.7 g/dl (12.0-18.0); MODE NASAL CANNULA
[2016-03-25] MEDS: ASPIRIN 81 MG TAB NGT SCH (09:24)
[2016-03-25] MEDS: CITRIC ACID/NA CITRATE 30 ML CUP NGT SCH ×2 (09:24→21:02)
[2016-03-25] MEDS: DICYCLOMINE 10 MG CAP PO SCH ×2 (09:25→21:02)
[2016-03-25] MEDS: METOPROLOL 25 MG TAB PO SCH ×2 (09:25→21:03)
[2016-03-25] MEDS: FLUCONAZOLE 100 MG TAB PO SCH (09:25)
[2016-03-25] MEDS: FUROSEMIDE 20 MG INJ IV SCH (09:26)
[2016-03-25] MEDS: MEROPENEM 500 MG/100 ML (PMX) 100 ML IVPB SCH ×2 (09:26→21:02)
[2016-03-25] MEDS: NICOTINE (21 MG/24 HR) PATCH TRANSDERM SCH (09:27)
[2016-03-25] MEDS: HEPARIN 5,000 UNIT/0.5 ML SYG SC SCH ×2 (09:56→21:07)
[2016-03-25] MEDS: COLLAGENASE 30 GM TUBE TOP SCH (10:00)
[2016-03-25] MEDS ORDERED: POTASSIUM CHLORIDE 20 MEQ in DEXTROSE 5%-0.45% NACL 1,000 ML IV SCH (10:15)
--- NOTE | 2016-03-25 10:18 | PN ---
Date/Time of Note Date/Time of Note DATE: 03/25/16 TIME: 10:13 Assessment/Plan VTE Prophylaxis VTE Prophylaxis Intervention: heparin Lines/Catheters IV Catheter Type (from [facility]): PICC Line Central line still needed: Yes (IV access ) Urinary Cath still in place: Yes Reason Cath still needed: other (indicate) (strict I/O, ) Assessment/Plan Assessment/Plan 1. Sepsis. 2. Acute respiratory failure, intubated on ventilator, possible aspiratio pNA s /p Extubation on 03/24/16 3. Bilateral pleural effusions status post thoracentesis x 2 during this admission, last on 03/24/16 4. Severe pancolitis, patient remains on coverage with Dificid, oral vancomycin and Flagyl. 5. Left lower extremity cellulitis, resolving. 6. Status post Ann glabrata urinary tract infection. 7. Status post cervical spine injury. 8. Status post diagnostic laparoscopy on 03/01/2016. Plan: IV abx, ID following s/p Extubation now , K replacement good urine output, Cr normal today passed swallow today, will start PO diet s/p PICC line placement Family decided for DNR, regarding Hospice care they want to wait Heparin for DVT prophylaxis pt will stay in ICU family refused Rectal tube, explained multiple times send Cl.Difficle now Subjective 24 Hr Interval Summary Free Text/Dictation pt extubated, passed swallow, afebrile, Had a Loose BM yesterday , K low Exam/Review of Systems Vital Signs Vitals Vital Signs Date Time Temp Pulse Resp B/P Pulse Ox O2 Delivery O2 Flow Rate FiO2 03/25/16 10:00 80 23 115/61 100 Nasal Cannula 03/25/16 08:30 2.0 03/25/16 08:00 98.3 03/25/16 01:44 28 Intake and Output 03/24/16 03/24/16 03/25/16 15:00 23:00 07:00 Intake Total 430 ml 670 ml 710 ml Output Total 870 ml 430 ml 600 ml Balance -440 ml 240 ml 110 ml Exam Extubed Alert ,awake, passed swallow Bilateral corase BS S1 S2 RRR Soft, NT 1-2 + edema Results Result Diagram: 03/25/16 0430 03/25/16 0445 Results 24 hrs Laboratory Tests Test 03/24/16 12:40 03/24/16 17:00 03/25/16 04:25 03/25/16 04:30 Arterial Blood HCO3 22.4 Arterial Blood Base Excess -0.3 Arterial Blood Oxygen Saturation 96.7 Kaiden Test ACCEPTAB Arterial Blood Gas Puncture Site Right Radial Arterial Blood Carboxyhemoglobin 0.3 Arterial Blood Date Drawn 03/24/2016 12:30:28 PM Arterial Blood Methemoglobin 0.4 Arterial Blood pCO2 (Temp correct) 29.2 L Arterial Blood pH (Temp corrected) 7.502 H Arterial Blood pO2 (Temp corrected) 94.3 H Blood Gas A-a O2 Differential 49.3 H Blood Gas Low PEEP Setting 5.0 Blood Gas Modality VENT - CPAP Blood Gas Notified Time 03/24/2016 12:49:18 PM Blood Gas Notified Whom JLD Blood Gas Pressure Support 10 Blood Gas Specimen Source Blood arterial Blood Gas Temperature 37.0 FiO2 25.0 Oxyhemoglobin Percent 96.0 Total Hemoglobin 8.6 L Body Fluid Appearance CLEAR Body Fluid Color YELLOW Body Fluid Glucose 93 Body Fluid Lactate Dehydrogenase 362 Body Fluid Lymphocytes (%) Body Fluid Monocytes % 79 Body Fluid Neutrophils % 21 Body Fluid RBC 1+ Body Fluid Total Protein < 2.0 Body Fluid Type THORACENTESIS FLUID Body Fluid Volume 525.0 Body Fluid WBC 89 Activated Partial Thromboplast Time 36.5 H INR International Normalized Ratio 1.27 Prothrombin Time 16.0 H Prothrombin Time Ratio 1.3 Basophils # 0.0 Basophils % 0.6 Eosinophils # 0.1 Eosinophils % 1.3 Hematocrit 29.6 L Hemoglobin 9.3 #L Lymphocytes # 1.0 Lymphocytes % 15.1 Mean Corpuscular Hemoglobin 29.6 Mean Corpuscular Hemoglobin Concent 31.4 L Mean Corpuscular Volume 94.3 Mean Platelet Volume 12.5 H Monocytes # 0.7 Monocytes % 10.0 Neutrophils # 4.8 Neutrophils % 72.1 Nucleated Red Blood Cells # 0.0 Nucleated Red Blood Cells % 0.0 Platelet Count 245 Red Blood Count 3.14 #L Red Cell Distribution Width 19.1 H White Blood Count 6.7 Test 03/25/16 04:45 03/25/16 05:00 03/25/16 07:00 Anion Gap 11 Blood Urea Nitrogen 21 H Calcium Level 6.9 L Carbon Dioxide Level 26 Chloride Level 111 H Creatinine 0.71 Glucose Level 91 Potassium Level 2.7 *L Sodium Level 145 H Arterial Blood HCO3 20.4 L 21.9 L Arterial Blood Base Excess -3.2 L -1.4 Arterial Blood Oxygen Saturation 96.1 96.8 Kaiden Test ACCEPTAB ACCEPTAB Arterial Blood Gas Puncture Site Right Radial Right Radial Arterial Blood Carboxyhemoglobin 0.3 0.3 Arterial Blood Date Drawn 03/25/2016 5:15:51 AM 03/25/2016 8:35:40 AM Arterial Blood Methemoglobin 0.3 0.4 Arterial Blood pCO2 (Temp correct) 32.1 L 32.0 L Arterial Blood pH (Temp corrected) 7.422 7.453 H Arterial Blood pO2 (Temp corrected) 91.1 H 96.0 H Blood Gas A-a O2 Differential 63.5 H 58.7 H Blood Gas Actual Respiration Rate 24 Blood Gas Modality NASAL CANNULA NASAL CANNULA Blood Gas Notified Time 03/25/2016 5:19:29 AM 03/25/2016 8:53:03 AM Blood Gas Notified Whom BR DT Blood Gas Specimen Source Blood arterial Blood arterial Blood Gas Temperature 37.0 37.0 FiO2 27.0 27.0 Oxyhemoglobin Percent 95.5 96.1 Total Hemoglobin 11.1 L 10.7 L Medications Medications Current Medications Lorazepam (Ativan) 0.5 mg Q6H PRN IV ANXIETY Last administered on 03/17/16 18: 50; Admin Dose 0.5 MG; Start 02/24/16 at 02:00 Ondansetron HCl (Zofran Inj) 4 mg Q6H PRN IV NAUSEA AND/OR VOMITING Last administered on 03/01/16 13:17; Admin Dose 4 MG; Start 02/24/16 at 02:00 Nitroglycerin (Nitroglycerin (Sl Tab) 0.4 Mg) 1 tab Q5M PRN SL CHEST PAIN; Start 02/24/16 at 02:00 Hydralazine HCl (Apresoline) 10 mg Q6H PRN IV SBP > 160 Last administered on 16:28; Admin Dose 10 MG; Start 02/24/16 at 02:00 Labetalol HCl (Labetalol) 10 mg Q6 PRN IV ELEVATED BLOOD PRESSURE; Start at 23:00 Guaifenesin/ Dextromethorphan (Robitussin Dm Liquid Cup) 5 ml Q6 PRN PO COUGH Last administered on 02/27/16 18:12; Admin Dose 5 ML; Start 02/24/16 at 23:00 Nicotine (Nicoderm 21 Mg/ 24hr) 1 patch DAILY TRANSDERM Last administered on 09:27; Admin Dose 1 PATCH; Start 02/26/16 at 09:00 Levothyroxine Sodium (Synthroid) 25 mcg DAILY@06 PO Last administered on 05:30; Admin Dose 25 MCG; Start 02/28/16 at 06:00 Hydromorphone HCl (Dilaudid) 0.5 mg Q3 PRN IV PAIN Last administered on 19:01; Admin Dose 0.5 MG; Start 03/02/16 at 17:00 Heparin Sodium (Porcine) (Heparin (5000 Units/0.5 ml)) 5,000 unit BID SC Last administered on 03/25/16 09:56; Admin Dose 5,000 UNIT; Start 03/02/16 at 21:30 Dicyclomine HCl (Bentyl) 10 mg BID PO Last administered on 03/25/16 09:25; Admin Dose 10 MG; Start 03/15/16 at 21:00 Metronidazole (Flagyl) 500 mg Q8 PO Last administered on 03/24/16 14:15; Admin Dose 500 MG; Start 03/16/16 at 22:00 Verapamil HCl (Verapamil) 5 mg Q6H PRN IV ELEVATED HEART RATE Last administered on 03/17/16 23:45; Admin Dose 5 MG; Start 03/17/16 at 23:30 Zolpidem Tartrate (Ambien) 5 mg HS PRN PO INSOMNIA Last administered on 23:56; Admin Dose 5 MG; Start 03/17/16 at 23:30 Metoprolol Tartrate (Lopressor) 5 mg Q4H PRN IV ELEVATED HEART RATE Last administered on 03/18/16 01:41; Admin Dose 5 MG; Start 03/18/16 at 01:30 Acetaminophen 650 mg 650 mg Q6H PRN PO PAIN AND OR ELEVATED TEMP Last administered on 03/19/16 01:18; Admin Dose 650 MG; Start 03/18/16 at 23:30 Meropenem 100 ml @ 200 mls/hr Q12 IVPB Last administered on 03/25/16 09:26; Admin Dose 200 MLS/HR; Start 03/19/16 at 09:00 Propofol (Diprivan) 100 ml @ 1.692 mls/ hr Q12H IV Last administered on 05:29; Admin Dose 10.152 MLS/HR; Start 03/20/16 at 01:00 Aspirin (Aspirin) 81 mg DAILY NGT Last administered on 03/25/16 09:24; Admin Dose 81 MG; Start 03/21/16 at 09:00 Furosemide (Lasix) 20 mg DAILY IV Last administered on 03/25/16 09:26; Admin Dose 20 MG; Start 03/21/16 at 09:00 Pantoprazole (Protonix Iv) 40 mg DAILY@06 IV Last administered on 03/25/16 06: 18; Admin Dose 40 MG; Start 03/21/16 at 06:00 Collagenase 1 applic 1 applic DAILY TOP Last administered on 03/25/16 10:00; Admin Dose 1 APPLIC; Start 03/21/16 at 15:00 Vancomycin HCl/ Sodium Chloride (Vancocin/NS) 150 ml @ 75 mls/hr Q36H IVPB Last administered on 03/24/16 00:55; Admin Dose 75 MLS/HR; Start 03/22/16 at 13: 00 Metoprolol Tartrate (Lopressor) 25 mg BID PO Last administered on 03/25/16 09: 25; Admin Dose 25 MG; Start 03/22/16 at 21:00 IV Flush 10 ml 10 ml PRN PRN IV IV PROTOCOL; Start 03/22/16 at 12:30 Dextrose/Sodium Chloride (D5-1/2ns) 1,000 ml @ 70 mls/hr [id number] IV Last administered on 03/25/16 06:18; Admin Dose 70 MLS/HR; Start 03/23/16 at 09:00 Hydralazine HCl (Apresoline) 50 mg Q8 PO Last administered on 03/24/16 14:15; Admin Dose 50 MG; Start 03/23/16 at 14:00 Citric Acid/ Sodium Citrate (Bicitra) 30 ml BID NGT Last administered on 09:24; Admin Dose 30 ML; Start 03/24/16 at 09:00 Miscellaneous Information (*Rx Drug Level Order Reminder*) 1 ONCE ONCE XX ; Start 03/25/16 at 12:00; Stop 03/25/16 at 12:01 Fluconazole (Diflucan) 100 mg DAILY PO Last administered on 03/25/16t 09:25; Admin Dose 100 MG; Start 03/25/16 at 09:00 HOWARD LEVY MD Mar 25, 2016 10:18
[2016-03-25] MEDS ORDERED: LOPERAMIDE 2 MG CAP PO ONE (10:30)
[2016-03-25] MEDS: D5W-0.45 NACL + KCL 20 MEQ 1,000 ML IV SCH (10:32)
--- NOTE | 2016-03-25 10:58 | RADRPT ---
PROCEDURE: XR Chest AP portable CLINICAL INDICATION: Antedated, pulmonary congestion TECHNIQUE: An AP portable radiograph of the chest was submitted. COMPARISON: 03/24/2016 FINDINGS: Support Hardware: The left upper extremity PICC catheter is stable positioning with the tip at the a orto caval junction. Cardiovascular: The cardiovascular silhouette appears unremarkable. Lung Fierro: It increasing infiltrate is seen at the lung bases, greater on the right than the left. Pleural Spaces: The left costophrenic angle is blunted suspicious for a small pleural fluid accumula tion. No pneumothorax is evident. Osseous Structures: Moderate degenerative spine changes are again noted. There is suspicion of a ch ronic rotator cuff tears bilaterally. Soft Tissues: The soft tissues appear unremarkable. IMPRESSION: 1. Stable positioning of the left upper extremity PICC catheter. 2. Increasing large the interstitial infiltrates seen at the lung bases more extensive and the righ t . 3. Suspicion of a small left pleural fluid accumulation. Physician Alka Date Time Electronically viewed and signed by Physician Alka on 03/25/2016 10:58 /
--- NOTE | 2016-03-25 13:22 | CONS ---
Date/Time of Note Date/Time of Note DATE: 03/25/16 TIME: 13:16 Assessment/Plan Assessment/Plan Chief Complaint/Hosp Course IMPRESSION: 1. Positive troponin, assess significance in the setting of renal failure, status post code blue with respiratory arrest.-slowly downtrending 2. Cardiomyopathy with decreased left ventricular ejection fraction/CHF- systolic acute on chronic. last EF being approximately 35% by echo. 3. Abnormal electrocardiogram, assess for acute coronary syndrome. 4. Hypotension-now improved with HTN 5. Anemia. 6. Renal failure-improving 7. Hypokalemia s/p repletion 8. Hypernatremia-improved 9. Hemothorax status post VATS with decortication. 10. Status post pulmonary arrest. 11. Anemia. 12. Lower extremity edema. 14. Colitis 15. Resp failure s/p extubation Recc: -tele -serial ecg's -Continue lasix diuresis and follow volume status closely -Continue abx's and f/u cx data -Continue BB/hydralazine and follow BP closely Problems: Consultation Date/Type/Reason Admit Date/Time Feb 24, 2016 at 04:06 Initial Consult Date 03/20/16 Type of Consultation: Cardiology Reason for Consultation positive troponin Referring Provider: HOWARD LEVY MD Exam/Review of Systems Vital Signs Vitals Vital Signs Date Time Temp Pulse Resp B/P Pulse Ox O2 Delivery O2 Flow Rate FiO2 03/25/16 12:30 64 21 151/56 100 Nasal Cannula 03/25/16 12:00 98.0 03/25/16 08:30 2.0 03/25/16 01:44 28 Intake and Output 03/24/16 03/24/16 03/25/16 14:59 22:59 06:59 Intake Total 390 ml 740 ml 710 ml Output Total 720 ml 560 ml 570 ml Balance -330 ml 180 ml 140 ml Exam Review of Systems: CONSTITUTIONAL: No fevers, chills. PULMONARY: s/p extubation CARDIOVASCULAR: No chest pain/palpitations GASTROINTESTINAL: No nausea/vomiting. GENITOURINARY: No hematuria/dysuria. MUSCULOSKELETAL: No myagias/arthalgias. PSYCHIATRIC: The patient denies depression. NEUROLOGIC: No weakness Constitutional: alert Psych: no complaints Head: normocephalic ENMT: mucosa pink and moist Neck: jvd (9 cm water), supple Respiratory: diminished breath sounds (at bases/B) Cardiovascular: regular rate and rhythm Gastrointestinal: non-tender, soft Musculoskeletal: muscle tone Extremities: pitting pedal edema (bilateral) Neurological: other (Nom focal deficits) Results Result Diagram: 03/25/16 0430 03/25/16 0445 Results 24 hrs Laboratory Tests Test 03/24/16 17:00 03/25/16 04:25 03/25/16 04:30 03/25/16 04:45 Body Fluid Appearance CLEAR Body Fluid Color YELLOW Body Fluid Glucose 93 Body Fluid Lactate Dehydrogenase 362 Body Fluid Lymphocytes (%) Body Fluid Monocytes % 79 Body Fluid Neutrophils % 21 Body Fluid RBC 1+ Body Fluid Total Protein < 2.0 Body Fluid Type THORACENTESIS FLUID Body Fluid Volume 525.0 Body Fluid WBC 89 Activated Partial Thromboplast Time 36.5 H INR International Normalized Ratio 1.27 Prothrombin Time 16.0 H Prothrombin Time Ratio 1.3 Basophils # 0.0 Basophils % 0.6 Eosinophils # 0.1 Eosinophils % 1.3 Hematocrit 29.6 L Hemoglobin 9.3 #L Lymphocytes # 1.0 Lymphocytes % 15.1 Mean Corpuscular Hemoglobin 29.6 Mean Corpuscular Hemoglobin Concent 31.4 L Mean Corpuscular Volume 94.3 Mean Platelet Volume 12.5 H Monocytes # 0.7 Monocytes % 10.0 Neutrophils # 4.8 Neutrophils % 72.1 Nucleated Red Blood Cells # 0.0 Nucleated Red Blood Cells % 0.0 Platelet Count 245 Red Blood Count 3.14 #L Red Cell Distribution Width 19.1 H White Blood Count 6.7 Anion Gap 11 Blood Urea Nitrogen 21 H Calcium Level 6.9 L Carbon Dioxide Level 26 Chloride Level 111 H Creatinine 0.71 Glucose Level 91 Potassium Level 2.7 *L Sodium Level 145 H Test 03/25/16 05:00 03/25/16 07:00 03/25/16 11:59 Arterial Blood HCO3 20.4 L 21.9 L Arterial Blood Base Excess -3.2 L -1.4 Arterial Blood Oxygen Saturation 96.1 96.8 Kaiden Test ACCEPTAB ACCEPTAB Arterial Blood Gas Puncture Site Right Radial Right Radial Arterial Blood Carboxyhemoglobin 0.3 0.3 Arterial Blood Date Drawn 03/25/2016 5:15:51 AM 03/25/2016 8:35:40 AM Arterial Blood Methemoglobin 0.3 0.4 Arterial Blood pCO2 (Temp correct) 32.1 L 32.0 L Arterial Blood pH (Temp corrected) 7.422 7.453 H Arterial Blood pO2 (Temp corrected) 91.1 H 96.0 H Blood Gas A-a O2 Differential 63.5 H 58.7 H Blood Gas Actual Respiration Rate 24 Blood Gas Modality NASAL CANNULA NASAL CANNULA Blood Gas Notified Time 03/25/2016 5:19:29 AM 03/25/2016 8:53:03 AM Blood Gas Notified Whom BR DT Blood Gas Specimen Source Blood arterial Blood arterial Blood Gas Temperature 37.0 37.0 FiO2 27.0 27.0 Oxyhemoglobin Percent 95.5 96.1 Total Hemoglobin 11.1 L 10.7 L Vancomycin Level Trough 13.3 Medications Medications Current Medications Lorazepam (Ativan) 0.5 mg Q6H PRN IV ANXIETY Last administered on 03/17/16 18: 50; Admin Dose 0.5 MG; Start 02/24/16 at 02:00 Ondansetron HCl (Zofran Inj) 4 mg Q6H PRN IV NAUSEA AND/OR VOMITING Last administered on 03/01/16 13:17; Admin Dose 4 MG; Start 02/24/16 at 02:00 Nitroglycerin (Nitroglycerin (Sl Tab) 0.4 Mg) 1 tab Q5M PRN SL CHEST PAIN; Start 02/24/16 at 02:00 Hydralazine HCl (Apresoline) 10 mg Q6H PRN IV SBP > 160 Last administered on 16:28; Admin Dose 10 MG; Start 02/24/16 at 02:00 Labetalol HCl (Labetalol) 10 mg Q6 PRN IV ELEVATED BLOOD PRESSURE; Start at 23:00 Guaifenesin/ Dextromethorphan (Robitussin Dm Liquid Cup) 5 ml Q6 PRN PO COUGH Last administered on 02/27/16 18:12; Admin Dose 5 ML; Start 02/24/16 at 23:00 Nicotine (Nicoderm 21 Mg/ 24hr) 1 patch DAILY TRANSDERM Last administered on 09:27; Admin Dose 1 PATCH; Start 02/26/16 at 09:00 Levothyroxine Sodium (Synthroid) 25 mcg DAILY@06 PO Last administered on 05:30; Admin Dose 25 MCG; Start 02/28/16 at 06:00 Hydromorphone HCl (Dilaudid) 0.5 mg Q3 PRN IV PAIN Last administered on 19:01; Admin Dose 0.5 MG; Start 03/02/16 at 17:00 Heparin Sodium (Porcine) (Heparin (5000 Units/0.5 ml)) 5,000 unit BID SC Last administered on 03/25/16 09:56; Admin Dose 5,000 UNIT; Start 03/02/16 at 21:30 Dicyclomine HCl (Bentyl) 10 mg BID PO Last administered on 03/25/16 09:25; Admin Dose 10 MG; Start 03/15/16 at 21:00 Metronidazole (Flagyl) 500 mg Q8 PO Last administered on 03/24/16 14:15; Admin Dose 500 MG; Start 03/16/16 at 22:00 Verapamil HCl (Verapamil) 5 mg Q6H PRN IV ELEVATED HEART RATE Last administered on 03/17/16 23:45; Admin Dose 5 MG; Start 03/17/16 at 23:30 Zolpidem Tartrate (Ambien) 5 mg HS PRN PO INSOMNIA Last administered on 23:56; Admin Dose 5 MG; Start 03/17/16 at 23:30 Metoprolol Tartrate (Lopressor) 5 mg Q4H PRN IV ELEVATED HEART RATE Last administered on 03/18/16 01:41; Admin Dose 5 MG; Start 03/18/16 at 01:30 Acetaminophen 650 mg 650 mg Q6H PRN PO PAIN AND OR ELEVATED TEMP Last administered on 03/19/16 01:18; Admin Dose 650 MG; Start 03/18/16 at 23:30 Meropenem (Merrem 500 Mg/ 100 ml (Pmx)) 100 ml @ 200 mls/hr Q12 IVPB Last administered on 03/25/16 09:26; Admin Dose 200 MLS/HR; Start 03/19/16 at 09:00 Aspirin (Aspirin) 81 mg DAILY NGT Last administered on 03/25/16 09:24; Admin Dose 81 MG; Start 03/21/16 at 09:00 Furosemide (Lasix) 20 mg DAILY IV Last administered on 03/25/16 09:26; Admin Dose 20 MG; Start 03/21/16 at 09:00 Pantoprazole (Protonix Iv) 40 mg DAILY@06 IV Last administered on 03/25/16 06: 18; Admin Dose 40 MG; Start 03/21/16 at 06:00 Collagenase 1 applic 1 applic DAILY TOP Last administered on 03/25/16 10:00; Admin Dose 1 APPLIC; Start 03/21/16 at 15:00 Vancomycin HCl/ Sodium Chloride (Vancocin/NS) 150 ml @ 75 mls/hr Q36H IVPB Last administered on 03/24/16 00:55; Admin Dose 75 MLS/HR; Start 03/22/16 at 13: 00 Metoprolol Tartrate (Lopressor) 25 mg BID PO Last administered on 03/25/16 09: 25; Admin Dose 25 MG; Start 03/22/16 at 21:00 IV Flush (NS 10 ml) 10 ml PRN PRN IV IV PROTOCOL; Start 03/22/16 at 12:30 Hydralazine HCl (Apresoline) 50 mg Q8 PO Last administered on 03/24/16 14:15; Admin Dose 50 MG; Start 03/23/16 at 14:00 Citric Acid/ Sodium Citrate (Bicitra) 30 ml BID NGT Last administered on 09:24; Admin Dose 30 ML; Start 03/24/16 at 09:00 Miscellaneous Information (*Rx Drug Level Order Reminder*) 1 ONCE ONCE XX ; Start 03/25/16 at 12:00; Stop 03/25/16 at 12:01 Fluconazole (Diflucan) 100 mg DAILY PO Last administered on 03/25/16 09:25; Admin Dose 100 MG; Start 03/25/16 at 09:00 Loperamide HCl 2 mg 2 mg ONCE ONCE PO Last administered on 03/25/16 10:31; Admin Dose 2 MG; Start 03/25/16 at 10:30; Stop 03/25/16 at 10:31 Potassium Chloride/Dextrose/ Sod Cl (D5-1/2ns + KCl 20 Meq) 1,000 ml @ 30 mls/ hr Q24H IV Last administered on 03/25/16 10:32; Admin Dose 30 MLS/HR; Start at 10:30 KORINA OCONNOR 11, 2017 13:22
[2016-03-25] MEDS: VANCOMYCIN 750 MG in SOD CHLORIDE 0.9% 150 ML IVPB SCH (14:05)
[2016-03-25] MEDS: HYDROmorphONE 1 MG/ML SYG IV PRN (14:07)
--- NOTE | 2016-03-25 15:05 | QN ---
Documentation Comment Date/Time of Note DATE: 03/23/16 TIME: 19:03 Assessment/Plan Assessment/Plan 1. Abdominal pain, with CT diagnosis of pancolitis, with significant leukocytosis and bandemia. s/p Lap exploration and only small mid transverse with min mottling. Bowel function. -Antibiotics per ID -Judicious fluid management 2. Sepsis, multifactorial (pancolitis ? ischemic, urinary tract infection, pulmonary infiltrates, bacteremia). Leukocytosis ? etiology (aspiration vs other) -Antibiotic therapy. -Judicious fluid management. -Close monitoring. 3. Renal insufficiency secondary to sepsis. Improving Cr -Continue judicious fluid management. -Avoid nephrotoxic agents as possible. 4. Anemia, with recent hemothorax requiring VATS decortication. -Transfuse as needed. 5. Hypoalbuminemia. -Eventual nutritional optimization. 6. Hypernatremia -Correct with fluid management. 7. Hypertension. -Nutritional and medication optimization. 8. Hypothyroidism. -Replace hormone. 9. Hemopneumothorax, status post VATS. CT removed -followed by CT surgery. 10. Cervical spine injury, being maintained in brace by neurosurgery. 11. Respiratory distress/code s/p re-intubation. ? Aspiration PNA -pulmonary toilette -abx -ventilator management Thank you, Subjective Subjective Leukocytosis improving. Re-intubated 2nd resp distress/code. No f/c. No v. Bowel function. On feeds. Min bloated. No cough. No sz. No rash. Exam/Review of Systems Vital Signs Vitals noted Exam GENERAL: NAD. Intubated HEENT: Pupils equal, reactive. No scleral icterus. Mucous membranes are somewhat dry. NECK: No crepitus. No JVD. PULMONARY: Normal respiratory effort ABDOMEN: No rebound/guarding/rigidity. Distended. EXTREMITIES: Trace edema. VASCULAR: Capillary refill is 2 seconds. NEUROLOGIC: Ventilated SKIN: No rashes/jaundice. PSYCH: Ventilated Results Noted CHRISTIANO JENNINGS MD Mar 25, 2016 15:05
--- NOTE | 2016-03-25 15:10 | PN ---
Date/Time of Note Date/Time of Note DATE: 03/25/16 TIME: 15:07 Assessment/Plan Lines/Catheters IV Catheter Type (from [facility]): PICC Line Francois in Place (from [facility]): Yes Assessment/Plan Chief Complaint/Hosp Course 1. Abdominal pain, with CT diagnosis of pancolitis, with significant leukocytosis and bandemia. s/p Lap exploration and only small mid transverse with min mottling. Bowel function. -Antibiotics per ID -Judicious fluid management 2. Sepsis, multifactorial (pancolitis ? ischemic, urinary tract infection, pulmonary infiltrates, bacteremia). Leukocytosis ? etiology (aspiration vs other). Improved again. -Antibiotic therapy. -Judicious fluid management. -Close monitoring. 3. Renal insufficiency secondary to sepsis. -Continue judicious fluid management. -Avoid nephrotoxic agents as possible. 4. Anemia, with recent hemothorax requiring VATS decortication. -Transfuse as needed. 5. Hypoalbuminemia. -Eventual nutritional optimization. 6. Hypernatremia -Correct with fluid management. 7. Hypertension. -Nutritional and medication optimization. 8. Hypothyroidism. -Replace hormone. 9. Hemopneumothorax, status post VATS. CT removed -followed by CT surgery. 10. Cervical spine injury, being maintained in brace by neurosurgery. 11. Respiratory distress/code s/p re-intubation. ? Aspiration PNA. Extubated again. Swallow eval. -pulmonary toilette -abx Thank you, Problems: Subjective 24 Hr Interval Summary Leukocytosis resolved. Extubated again after re-intubated 2nd resp distress/ code. No f/c. No v. Bowel function. On feeds. Min bloated. No cough. No sz. No rash. Exam/Review of Systems Vital Signs Vitals Vital Signs Date Time Temp Pulse Resp B/P Pulse Ox O2 Delivery O2 Flow Rate FiO2 03/25/16 14:00 68 24 135/104 100 Nasal Cannula 03/25/16 12:00 98.0 03/25/16 08:30 2.0 03/25/16 01:44 28 Intake and Output 03/24/16 03/24/16 03/25/16 15:00 23:00 07:00 Intake Total 430 ml 670 ml 710 ml Output Total 870 ml 430 ml 600 ml Balance -440 ml 240 ml 110 ml Exam Free Text/Dictation GENERAL: NAD. Responsive HEENT: Pupils equal, reactive. No scleral icterus. Mucous membranes are somewhat dry. NECK: No crepitus. No JVD. PULMONARY: Normal respiratory effort ABDOMEN: No rebound/guarding/rigidity. Distended. EXTREMITIES: Trace edema. VASCULAR: Capillary refill is 2 seconds. NEUROLOGIC: Responsive SKIN: No rashes/jaundice. PSYCH: normal affect Results Result Diagram: 03/25/16 0430 03/25/16 0445 CHRISTIANO JENNINGS MD Mar 25, 2016 15:09
--- NOTE | 2016-03-25 16:10 | CONS ---
Date/Time of Note Date/Time of Note DATE: 03/25/16 TIME: 16:07 Assessment/Plan Assessment/Plan Chief Complaint/Hosp Course ID PROGRESS NOTE TOTAL ABX DAY # => Vanco IV, Merrem,Flagyl, Diflucan 24H INTERVAL SUMMARY => Stable, resting comfortably, no fevers => Denies ABD pain, denies SOB/no dyspnea * POD-> 17 VATS for Left Hemothorax * POD-> 17 Ex-Lap, cultures and pathology (-) * => EXTUBATED and stable on O2 via NC, HOB up post administration of meds * INDWELLINGS: Francois, PICC line placed on 03/22/2016. ANTIMICROBIALS: 1. Vancomycin, day #7 2. Meropenem, day #7 3. Flagyl. 4. Fluconazole. PHYSICAL EXAMINATION: GENERAL: 80 yo F on supplemental O2 HEENT: Unremarkable NECK: Supple, trachea midline. CHEST: Equal chest rise bilaterally, without dyspnea HEART: RRR ABDOMEN: Soft EXTREMITIES: Warm ID ASSESSMENT: 80 yo F s/p fall from roof in [place]->C-spine injury, 4-rb fx w/left PTX/ Hemothorax, s/p CT removed in [place] admit: * POD#16 -> 17 VATS for Left Hemothorax * POD#11 -> 17 Ex-Lap, cultures and pathology (-) 1. Acute hypoxic respiratory failure w/Shortness of breath - 2/2 to Left Hemothorax/PTx w/LLL PNA= RESOLVING * EXTUBATED 2. Acute Spine Injuries * C-Spine Injury: grade 1 anterolisthesis C4-5 and C7-1 without fracture. * Acute fractures of the left T3-T12 and L1-L4 transverse processes. 3. Sepsis w/Fevers >103.+, Leukocytosis, tachycardia = RESOLVED 4. STAPH-CoNS Bacteremia on admission /2 bottles = Skin contaminant 5. Diffuse Colitis on CT = possible ischemic colitis vs ABX associated 6. PAD=> Moderate to marked narrowing of the proximal superior mesenteric artery. 7. Essential hypertension - prn hydralazine for sbp > 160 8. Transaminitis - 2/2 sepsis w/(-)hepatitis panel 9. Anemia - normocytic - check folate/b12, iron panel, occult blood stool 10. Tobaccoism -> Smoking abuse 11. Enterococcal bacteruria vs early UTI = sensitive to Vanco IV 12. (+)QTF Gold Serology: Per Dr. Ornelas's consult note 02/28/16; no evidence active MTB, no INH at this time * Can consider INH + B6 future when acute illness phase treated and liver fx WNL (+)MRSA Nares -> Bactroban onboard INVASIVES: PIV, FC, CT ABX ALLERGY: KNDA CURRENT ABX: TOTAL ABX DAY # => Vanco IV, Merrem,Flagyl, Diflucan ID RECOMMENDATIONS: * Continue current ABX per ID team who will f/u next week with further recommendations . Problems: Consultation Date/Type/Reason Admit Date/Time Feb 24, 2016 at 04:06 Type of Consultation: ID Referring Provider: HOWARD LEVY MD Exam/Review of Systems Vital Signs Vitals Vital Signs Date Time Temp Pulse Resp B/P Pulse Ox O2 Delivery O2 Flow Rate FiO2 03/25/16 16:00 97.6 61 14 141/48 100 Nasal Cannula 03/25/16 08:30 2.0 03/25/16 01:44 28 Intake and Output 03/24/16 03/24/16 03/25/16 15:00 23:00 07:00 Intake Total 430 ml 670 ml 710 ml Output Total 870 ml 430 ml 600 ml Balance -440 ml 240 ml 110 ml Results Result Diagram: 03/25/16 0430 03/25/16 0445 Results 24 hrs Laboratory Tests Test 03/24/16 17:00 03/25/16 04:25 03/25/16 04:30 03/25/16 04:45 Body Fluid Appearance CLEAR Body Fluid Color YELLOW Body Fluid Glucose 93 Body Fluid Lactate Dehydrogenase 362 Body Fluid Lymphocytes (%) Body Fluid Monocytes % 79 Body Fluid Neutrophils % 21 Body Fluid RBC 1+ Body Fluid Total Protein < 2.0 Body Fluid Type THORACENTESIS FLUID Body Fluid Volume 525.0 Body Fluid WBC 89 Activated Partial Thromboplast Time 36.5 H INR International Normalized Ratio 1.27 Prothrombin Time 16.0 H Prothrombin Time Ratio 1.3 Basophils # 0.0 Basophils % 0.6 Eosinophils # 0.1 Eosinophils % 1.3 Hematocrit 29.6 L Hemoglobin 9.3 #L Lymphocytes # 1.0 Lymphocytes % 15.1 Mean Corpuscular Hemoglobin 29.6 Mean Corpuscular Hemoglobin Concent 31.4 L Mean Corpuscular Volume 94.3 Mean Platelet Volume 12.5 H Monocytes # 0.7 Monocytes % 10.0 Neutrophils # 4.8 Neutrophils % 72.1 Nucleated Red Blood Cells # 0.0 Nucleated Red Blood Cells % 0.0 Platelet Count 245 Red Blood Count 3.14 #L Red Cell Distribution Width 19.1 H White Blood Count 6.7 Anion Gap 11 Blood Urea Nitrogen 21 H Calcium Level 6.9 L Carbon Dioxide Level 26 Chloride Level 111 H Creatinine 0.71 Glucose Level 91 Potassium Level 2.7 *L Sodium Level 145 H Test 03/25/16 05:00 03/25/16 07:00 03/25/16 11:59 Arterial Blood HCO3 20.4 L 21.9 L Arterial Blood Base Excess -3.2 L -1.4 Arterial Blood Oxygen Saturation 96.1 96.8 Kaiden Test ACCEPTAB ACCEPTAB Arterial Blood Gas Puncture Site Right Radial Right Radial Arterial Blood Carboxyhemoglobin 0.3 0.3 Arterial Blood Date Drawn 03/25/2016 5:15:51 AM 03/25/2016 8:35:40 AM Arterial Blood Methemoglobin 0.3 0.4 Arterial Blood pCO2 (Temp correct) 32.1 L 32.0 L Arterial Blood pH (Temp corrected) 7.422 7.453 H Arterial Blood pO2 (Temp corrected) 91.1 H 96.0 H Blood Gas A-a O2 Differential 63.5 H 58.7 H Blood Gas Actual Respiration Rate 24 Blood Gas Modality NASAL CANNULA NASAL CANNULA Blood Gas Notified Time 03/25/2016 5:19:29 AM 03/25/2016 8:53:03 AM Blood Gas Notified Whom BR DT Blood Gas Specimen Source Blood arterial Blood arterial Blood Gas Temperature 37.0 37.0 FiO2 27.0 27.0 Oxyhemoglobin Percent 95.5 96.1 Total Hemoglobin 11.1 L 10.7 L Vancomycin Level Trough 13.3 Medications Medications Current Medications Lorazepam (Ativan) 0.5 mg Q6H PRN IV ANXIETY Last administered on 03/17/16 18: 50; Admin Dose 0.5 MG; Start 02/24/16 at 02:00 Ondansetron HCl (Zofran Inj) 4 mg Q6H PRN IV NAUSEA AND/OR VOMITING Last administered on 03/01/16 13:17; Admin Dose 4 MG; Start 02/24/16 at 02:00 Nitroglycerin (Nitroglycerin (Sl Tab) 0.4 Mg) 1 tab Q5M PRN SL CHEST PAIN; Start 02/24/16 at 02:00 Hydralazine HCl (Apresoline) 10 mg Q6H PRN IV SBP > 160 Last administered on 16:28; Admin Dose 10 MG; Start 02/24/16 at 02:00 Labetalol HCl (Labetalol) 10 mg Q6 PRN IV ELEVATED BLOOD PRESSURE; Start at 23:00 Guaifenesin/ Dextromethorphan (Robitussin Dm Liquid Cup) 5 ml Q6 PRN PO COUGH Last administered on 02/27/16 18:12; Admin Dose 5 ML; Start 02/24/16 at 23:00 Nicotine (Nicoderm 21 Mg/ 24hr) 1 patch DAILY TRANSDERM Last administered on 09:27; Admin Dose 1 PATCH; Start 02/26/16 at 09:00 Levothyroxine Sodium (Synthroid) 25 mcg DAILY@06 PO Last administered on 05:30; Admin Dose 25 MCG; Start 02/28/16 at 06:00 Hydromorphone HCl (Dilaudid) 0.5 mg Q3 PRN IV PAIN Last administered on 14:07; Admin Dose 0.5 MG; Start 03/02/16 at 17:00 Heparin Sodium (Porcine) (Heparin (5000 Units/0.5 ml)) 5,000 unit BID SC Last administered on 03/25/16 09:56; Admin Dose 5,000 UNIT; Start 03/02/16 at 21:30 Dicyclomine HCl (Bentyl) 10 mg BID PO Last administered on 03/25/16 09:25; Admin Dose 10 MG; Start 03/15/16 at 21:00 Metronidazole (Flagyl) 500 mg Q8 PO Last administered on 03/25/16 14:06; Admin Dose 500 MG; Start 03/16/16 at 22:00 Verapamil HCl (Verapamil) 5 mg Q6H PRN IV ELEVATED HEART RATE Last administered on 03/17/16 23:45; Admin Dose 5 MG; Start 03/17/16 at 23:30 Zolpidem Tartrate (Ambien) 5 mg HS PRN PO INSOMNIA Last administered on 23:56; Admin Dose 5 MG; Start 03/17/16 at 23:30 Metoprolol Tartrate (Lopressor) 5 mg Q4H PRN IV ELEVATED HEART RATE Last administered on 03/18/16 01:41; Admin Dose 5 MG; Start 03/18/16 at 01:30 Acetaminophen 650 mg 650 mg Q6H PRN PO PAIN AND OR ELEVATED TEMP Last administered on 03/19/16 01:18; Admin Dose 650 MG; Start 03/18/16 at 23:30 Meropenem (Merrem 500 Mg/ 100 ml (Pmx)) 100 ml @ 200 mls/hr Q12 IVPB Last administered on 03/25/16 09:26; Admin Dose 200 MLS/HR; Start 03/19/16 at 09:00 Aspirin (Aspirin) 81 mg DAILY NGT Last administered on 03/25/16 09:24; Admin Dose 81 MG; Start 03/21/16 at 09:00 Furosemide (Lasix) 20 mg DAILY IV Last administered on 03/25/16 09:26; Admin Dose 20 MG; Start 03/21/16 at 09:00 Pantoprazole (Protonix Iv) 40 mg DAILY@06 IV Last administered on 03/25/16 06: 18; Admin Dose 40 MG; Start 03/21/16 at 06:00 Collagenase 1 applic 1 applic DAILY TOP Last administered on 03/25/16 10:00; Admin Dose 1 APPLIC; Start 03/21/16 at 15:00 Vancomycin HCl/ Sodium Chloride (Vancocin/NS) 150 ml @ 75 mls/hr Q36H IVPB Last administered on 03/25/16 14:05; Admin Dose 75 MLS/HR; Start 03/22/16 at 13: 00 Metoprolol Tartrate (Lopressor) 25 mg BID PO Last administered on 03/25/16 09: 25; Admin Dose 25 MG; Start 03/22/16 at 21:00 IV Flush (NS 10 ml) 10 ml PRN PRN IV IV PROTOCOL; Start 03/22/16 at 12:30 Hydralazine HCl (Apresoline) 50 mg Q8 PO Last administered on 03/25/16 14:06; Admin Dose 50 MG; Start 03/23/16 at 14:00 Citric Acid/ Sodium Citrate (Bicitra) 30 ml BID NGT Last administered on 09:24; Admin Dose 30 ML; Start 03/24/16 at 09:00 Miscellaneous Information (*Rx Drug Level Order Reminder*) 1 ONCE ONCE XX ; Start 03/25/16 at 12:00; Stop 03/25/16 at 12:01 Fluconazole (Diflucan) 100 mg DAILY PO Last administered on 03/25/16 09:25; Admin Dose 100 MG; Start 03/25/16 at 09:00 Loperamide HCl 2 mg 2 mg ONCE ONCE PO Last administered on 03/25/16 10:31; Admin Dose 2 MG; Start 03/25/16 at 10:30; Stop 03/25/16 at 10:31 Potassium Chloride/Dextrose/ Sod Cl (D5-1/2ns + KCl 20 Meq) 1,000 ml @ 30 mls/ hr Q24H IV Last administered on 03/25/16 10:32; Admin Dose 30 MLS/HR; Start at 10:30 COREY LUIS [employer] Mar 25, 2016 16:10
--- NOTE | 2016-03-25 17:14 | CONS ---
Date/Time of Note Date/Time of Note DATE: 03/25/16 TIME: 17:12 Consult Date/Type/Reason Admit Date/Time Feb 24, 2016 at 04:06 Type of Consultation: Pulm Ordering Provider: HOWARD LEVY MD Subjective s/p extubation. Tolerated well. s/p right thora x 500 ml Objective Vital Signs Date Time Temp Pulse Resp B/P Pulse Ox O2 Delivery O2 Flow Rate FiO2 03/25/16 16:30 74 17 129/48 99 Nasal Cannula 03/25/16 16:00 97.6 03/25/16 08:30 2.0 03/25/16 01:44 28 Intake and Output 03/24/16 03/24/16 03/25/16 15:00 23:00 07:00 Intake Total 430 ml 670 ml 710 ml Output Total 870 ml 430 ml 600 ml Balance -440 ml 240 ml 110 ml HEENT: Neck supple; no JVD; no LAD CVS: RRR, S1 and S2 CHEST: Clear ABD: Soft, NT, + BS EXT: No c/c/e Results/Medications Result Diagram: 03/25/16 0430 03/25/16 0445 Results 24 hrs Laboratory Tests Test 03/25/16 04:25 03/25/16 04:30 03/25/16 04:45 03/25/16 05:00 Activated Partial Thromboplast Time 36.5 H INR International Normalized Ratio 1.27 Prothrombin Time 16.0 H Prothrombin Time Ratio 1.3 Basophils # 0.0 Basophils % 0.6 Eosinophils # 0.1 Eosinophils % 1.3 Hematocrit 29.6 L Hemoglobin 9.3 #L Lymphocytes # 1.0 Lymphocytes % 15.1 Mean Corpuscular Hemoglobin 29.6 Mean Corpuscular Hemoglobin Concent 31.4 L Mean Corpuscular Volume 94.3 Mean Platelet Volume 12.5 H Monocytes # 0.7 Monocytes % 10.0 Neutrophils # 4.8 Neutrophils % 72.1 Nucleated Red Blood Cells # 0.0 Nucleated Red Blood Cells % 0.0 Platelet Count 245 Red Blood Count 3.14 #L Red Cell Distribution Width 19.1 H White Blood Count 6.7 Anion Gap 11 Blood Urea Nitrogen 21 H Calcium Level 6.9 L Carbon Dioxide Level 26 Chloride Level 111 H Creatinine 0.71 Glucose Level 91 Potassium Level 2.7 *L Sodium Level 145 H Arterial Blood HCO3 20.4 L Arterial Blood Base Excess -3.2 L Arterial Blood Oxygen Saturation 96.1 Kaiden Test ACCEPTAB Arterial Blood Gas Puncture Site Right Radial Arterial Blood Carboxyhemoglobin 0.3 Arterial Blood Date Drawn 03/25/2016 5:15:51 AM Arterial Blood Methemoglobin 0.3 Arterial Blood pCO2 (Temp correct) 32.1 L Arterial Blood pH (Temp corrected) 7.422 Arterial Blood pO2 (Temp corrected) 91.1 H Blood Gas A-a O2 Differential 63.5 H Blood Gas Actual Respiration Rate 24 Blood Gas Modality NASAL CANNULA Blood Gas Notified Time 03/25/2016 5:19:29 AM Blood Gas Notified Whom BR Blood Gas Specimen Source Blood arterial Blood Gas Temperature 37.0 FiO2 27.0 Oxyhemoglobin Percent 95.5 Total Hemoglobin 11.1 L Test 03/25/16 07:00 03/25/16 11:59 Arterial Blood HCO3 21.9 L Arterial Blood Base Excess -1.4 Arterial Blood Oxygen Saturation 96.8 Kaiden Test ACCEPTAB Arterial Blood Gas Puncture Site Right Radial Arterial Blood Carboxyhemoglobin 0.3 Arterial Blood Date Drawn 03/25/2016 8:35:40 AM Arterial Blood Methemoglobin 0.4 Arterial Blood pCO2 (Temp correct) 32.0 L Arterial Blood pH (Temp corrected) 7.453 H Arterial Blood pO2 (Temp corrected) 96.0 H Blood Gas A-a O2 Differential 58.7 H Blood Gas Modality NASAL CANNULA Blood Gas Notified Time 03/25/2016 8:53:03 AM Blood Gas Notified Whom DT Blood Gas Specimen Source Blood arterial Blood Gas Temperature 37.0 FiO2 27.0 Oxyhemoglobin Percent 96.1 Total Hemoglobin 10.7 L Vancomycin Level Trough 13.3 Medications Current Medications Lorazepam (Ativan) 0.5 mg Q6H PRN IV ANXIETY Last administered on 03/17/16 18: 50; Admin Dose 0.5 MG; Start 02/24/16 at 02:00 Ondansetron HCl (Zofran Inj) 4 mg Q6H PRN IV NAUSEA AND/OR VOMITING Last administered on 03/01/16 13:17; Admin Dose 4 MG; Start 02/24/16 at 02:00 Nitroglycerin (Nitroglycerin (Sl Tab) 0.4 Mg) 1 tab Q5M PRN SL CHEST PAIN; Start 02/24/16 at 02:00 Hydralazine HCl (Apresoline) 10 mg Q6H PRN IV SBP > 160 Last administered on 16:28; Admin Dose 10 MG; Start 02/24/16 at 02:00 Labetalol HCl (Labetalol) 10 mg Q6 PRN IV ELEVATED BLOOD PRESSURE; Start at 23:00 Guaifenesin/ Dextromethorphan (Robitussin Dm Liquid Cup) 5 ml Q6 PRN PO COUGH Last administered on 02/27/16 18:12; Admin Dose 5 ML; Start 02/24/16 at 23:00 Nicotine (Nicoderm 21 Mg/ 24hr) 1 patch DAILY TRANSDERM Last administered on 09:27; Admin Dose 1 PATCH; Start 02/26/16 at 09:00 Levothyroxine Sodium (Synthroid) 25 mcg DAILY@06 PO Last administered on 05:30; Admin Dose 25 MCG; Start 02/28/16 at 06:00 Hydromorphone HCl (Dilaudid) 0.5 mg Q3 PRN IV PAIN Last administered on 14:07; Admin Dose 0.5 MG; Start 03/02/16 at 17:00 Heparin Sodium (Porcine) (Heparin (5000 Units/0.5 ml)) 5,000 unit BID SC Last administered on 03/25/16 09:56; Admin Dose 5,000 UNIT; Start 03/02/16 at 21:30 Dicyclomine HCl (Bentyl) 10 mg BID PO Last administered on 03/25/16 09:25; Admin Dose 10 MG; Start 03/15/16 at 21:00 Metronidazole (Flagyl) 500 mg Q8 PO Last administered on 03/25/16 14:06; Admin Dose 500 MG; Start 03/16/16 at 22:00 Verapamil HCl (Verapamil) 5 mg Q6H PRN IV ELEVATED HEART RATE Last administered on 03/17/16 23:45; Admin Dose 5 MG; Start 03/17/16 at 23:30 Zolpidem Tartrate (Ambien) 5 mg HS PRN PO INSOMNIA Last administered on 23:56; Admin Dose 5 MG; Start 03/17/16 at 23:30 Metoprolol Tartrate (Lopressor) 5 mg Q4H PRN IV ELEVATED HEART RATE Last administered on 03/18/16 01:41; Admin Dose 5 MG; Start 03/18/16 at 01:30 Acetaminophen 650 mg 650 mg Q6H PRN PO PAIN AND OR ELEVATED TEMP Last administered on 03/19/16 01:18; Admin Dose 650 MG; Start 03/18/16 at 23:30 Meropenem (Merrem 500 Mg/ 100 ml (Pmx)) 100 ml @ 200 mls/hr Q12 IVPB Last administered on 03/25/16 09:26; Admin Dose 200 MLS/HR; Start 03/19/16 at 09:00 Aspirin (Aspirin) 81 mg DAILY NGT Last administered on 03/25/16 09:24; Admin Dose 81 MG; Start 03/21/16 at 09:00 Furosemide (Lasix) 20 mg DAILY IV Last administered on 03/25/16 09:26; Admin Dose 20 MG; Start 03/21/16 at 09:00 Pantoprazole (Protonix Iv) 40 mg DAILY@06 IV Last administered on 03/25/16 06: 18; Admin Dose 40 MG; Start 03/21/16 at 06:00 Collagenase 1 applic 1 applic DAILY TOP Last administered on 03/25/16 10:00; Admin Dose 1 APPLIC; Start 03/21/16 at 15:00 Vancomycin HCl/ Sodium Chloride (Vancocin/NS) 150 ml @ 75 mls/hr Q36H IVPB Last administered on 03/25/16 14:05; Admin Dose 75 MLS/HR; Start 03/22/16 at 13: 00 Metoprolol Tartrate (Lopressor) 25 mg BID PO Last administered on 03/25/16 09: 25; Admin Dose 25 MG; Start 03/22/16 at 21:00 IV Flush (NS 10 ml) 10 ml PRN PRN IV IV PROTOCOL; Start 03/22/16 at 12:30 Hydralazine HCl (Apresoline) 50 mg Q8 PO Last administered on 03/25/16 14:06; Admin Dose 50 MG; Start 03/23/16 at 14:00 Citric Acid/ Sodium Citrate (Bicitra) 30 ml BID NGT Last administered on 09:24; Admin Dose 30 ML; Start 03/24/16 at 09:00 Miscellaneous Information (*Rx Drug Level Order Reminder*) 1 ONCE ONCE XX ; Start 03/25/16 at 12:00; Stop 03/25/16 at 12:01 Fluconazole (Diflucan) 100 mg DAILY PO Last administered on 03/25/16 09:25; Admin Dose 100 MG; Start 03/25/16 at 09:00 Loperamide HCl 2 mg 2 mg ONCE ONCE PO Last administered on 03/25/16 10:31; Admin Dose 2 MG; Start 03/25/16 at 10:30; Stop 03/25/16 at 10:31 Potassium Chloride/Dextrose/ Sod Cl (D5-1/2ns + KCl 20 Meq) 1,000 ml @ 30 mls/ hr Q24H IV Last administered on 03/25/16 10:32; Admin Dose 30 MLS/HR; Start at 10:30 Assessment/Plan Additional Assessment/Plan IMP 1. Respiratory Failure/Vent--s/p extubation 2. Right pleural effusion status post thoracentesis. Exudative 3. History of bowel obstruction status post surgery. Pancolitis on CT 4. Deconditioning 5. History of fall with pneumothorax RECS: 1. Mobilize OOB/ICS 2. Continue physical therapy 3. Renal recommendations 4. Aspiration precautions 5. Speech/Swallow Eval 35 min cc time ALBINO DUNBAR MD Mar 25, 2016 17:14
[2016-03-26] VITALS (30 sets, daily range): BP systolic 126–152; BP diastolic 45–98; PULSE 60–86; RESP 13–27
[2016-03-26 05:35] LABS: POTASSIUM 3.1 mmol/L (3.5-5.1)
[2016-03-26 05:37] LABS: CREATININE 0.6 mg/dl (0.44-1.00)
[2016-03-26 05:39] LABS: CALCIUM 6.9 mg/dl (8.4-10.2)
[2016-03-26] MEDS: LEVOTHYROXINE 25 MCG TAB PO SCH (06:14)
[2016-03-26] MEDS: POTASSIUM CHLORIDE 50 ML IVPB PRN ×2 (06:14→08:44)
[2016-03-26] MEDS: PANTOPRAZOLE 40 MG INJ IV SCH (06:14)
[2016-03-26] MEDS: metroNIDAZOLE 500 MG TAB PO SCH ×3 (06:14→21:06)
[2016-03-26 06:52] LABS: BASOPHIL # 0.1 10^3/ul (0.0-0.1); BASOPHILS % 0.8 % (0.0-2.0); EOSINOPHILS # 0.1 10^3/ul (0.0-0.5); EOSINOPHILS % 0.9 % (0.0-7.0); HEMOGLOBIN 9.9 g/dl (12.0-16.0); LYMPHOCYTES # 1.1 10^3/ul (0.8-2.9); LYMPHOCYTES % 15.4 % (15.0-51.0); MEAN CORPUSCULAR HEMOGLOBIN 30.3 pg (29.0-33.0); MEAN CORPUSCULAR VOLUME 91.8 fl (82.0-101.0); MEAN PLATELET VOLUME 10.9 fl (7.4-10.4); MONOCYTE # 0.6 10^3/ul (0.3-0.9); MONOCYTES % 8.4 % (0.0-11.0); NEUTROPHIL # 5.2 10^3/ul (1.6-7.5); NEUTROPHILS % 74.5 % (39.0-77.0); PLATELET COUNT 248 10^3/UL (140-440); RED BLOOD COUNT 3.26 10^6/ul (4.20-5.40); RED CELL DISTRIBUTION WIDTH 19.4 % (11.5-14.5)
[2016-03-26 06:57] LABS: CONDITION 1; LH ANALYZER COMMENTS 1; SUSPECT 1
[2016-03-26] MEDS: HYDROmorphONE 1 MG/ML SYG IV PRN ×4 (07:16→20:55)
[2016-03-26] MEDS: CITRIC ACID/NA CITRATE 30 ML CUP NGT SCH ×2 (08:10→20:54)
[2016-03-26] MEDS: ASPIRIN 81 MG TAB NGT SCH (08:10)
[2016-03-26] MEDS: FUROSEMIDE 20 MG INJ IV SCH ×2 (08:10→18:11)
[2016-03-26] MEDS: DICYCLOMINE 10 MG CAP PO SCH ×2 (08:10→20:54)
[2016-03-26] MEDS: FLUCONAZOLE 100 MG TAB PO SCH (08:10)
[2016-03-26] MEDS: METOPROLOL 25 MG TAB PO SCH ×2 (08:14→20:54)
[2016-03-26] MEDS: NICOTINE (21 MG/24 HR) PATCH TRANSDERM SCH (08:15)
[2016-03-26] MEDS: HEPARIN 5,000 UNIT/0.5 ML SYG SC SCH ×2 (08:16→20:56)
[2016-03-26] MEDS: MEROPENEM 500 MG/100 ML (PMX) 100 ML IVPB SCH ×2 (08:34→20:54)
[2016-03-26] MEDS: COLLAGENASE 30 GM TUBE TOP SCH (09:00)
--- NOTE | 2016-03-26 10:50 | PN ---
Date/Time of Note Date/Time of Note DATE: 03/26/16 TIME: 10:48 Assessment/Plan VTE Prophylaxis VTE Prophylaxis Intervention: heparin Lines/Catheters IV Catheter Type (from Nrsg): PICC Line Central line still needed: Yes (IV access, difficutl peripheral access ) Urinary Cath still in place: Yes Reason Cath still needed: other (indicate) (strict I/o with renal failure ) Assessment/Plan Assessment/Plan 1. Sepsis. 2. Acute respiratory failure, intubated on ventilator, possible aspiratio pNA s /p Extubation on 03/24/16 3. Bilateral pleural effusions status post thoracentesis x 2 during this admission, last on 03/24/16 4. Severe pancolitis, patient remains on coverage with Dificid, oral vancomycin and Flagyl. 5. Left lower extremity cellulitis, resolving. 6. Status post Ann glabrata urinary tract infection. 7. Status post cervical spine injury. 8. Status post diagnostic laparoscopy on 03/01/2016. Plan: IV abx, ID following s/p Extubation now , K replacement good urine output, Cr normal today tolerated po diet but pt does not like to eat due to abominal pain, dilaudid IV prn pain s/p PICC line placement Family decided for DNR, regarding Hospice care they want to wait Heparin for DVT prophylaxis pt will stay in ICU family refused Rectal tube, explained multiple times Cl.difficle negative Subjective 24 Hr Interval Summary Free Text/Dictation pt BP remains low, c/o abdominal pain, had a good urine output,cr normal, K low Exam/Review of Systems Vital Signs Vitals Vital Signs Date Time Temp Pulse Resp B/P Pulse Ox O2 Delivery O2 Flow Rate FiO2 03/26/16 10:00 68 21 133/61 97 Room Air 03/26/16 08:00 97.7 03/25/16 20:15 2.0 03/25/16 01:44 28 Intake and Output 03/25/16 03/25/16 03/26/16 15:00 23:00 07:00 Intake Total 755 ml 840 ml 330 ml Output Total 680 ml 370 ml 210 ml Balance 75 ml 470 ml 120 ml Exam Extubed Alert ,awake, passed swallow Bilateral corase BS S1 S2 RRR Soft, NT 1-2 + edema Results Result Diagram: 03/26/1642903/26/16 0430 Results 24 hrs Laboratory Tests Test 03/25/16 11:59 03/26/16 04:30 Vancomycin Level Trough 13.3 Anion Gap 9 Basophils # 0.1 Basophils % 0.8 Blood Morphology Comment Blood Urea Nitrogen 16 Calcium Level 6.9 L Carbon Dioxide Level 26 Chloride Level 112 H Creatinine 0.60 Eosinophils # 0.1 Eosinophils % 0.9 Glucose Level 90 Hematocrit 30.0 L Hemoglobin 9.9 L Lymphocytes # 1.1 Lymphocytes % 15.4 Mean Corpuscular Hemoglobin 30.3 Mean Corpuscular Hemoglobin Concent 33.0 Mean Corpuscular Volume 91.8 Mean Platelet Volume 10.9 H Monocytes # 0.6 Monocytes % 8.4 Neutrophils # 5.2 Neutrophils % 74.5 Nucleated Red Blood Cells # 0.0 Nucleated Red Blood Cells % 0.0 Platelet Count 248 Potassium Level 3.1 L Red Blood Count 3.26 L Red Cell Distribution Width 19.4 H Sodium Level 144 White Blood Count 7.0 Medications Medications Current Medications Lorazepam (Ativan) 0.5 mg Q6H PRN IV ANXIETY Last administered on 03/17/16 18: 50; Admin Dose 0.5 MG; Start 02/24/16 at 02:00 Ondansetron HCl (Zofran Inj) 4 mg Q6H PRN IV NAUSEA AND/OR VOMITING Last administered on 03/01/16 13:17; Admin Dose 4 MG; Start 02/24/16 at 02:00 Nitroglycerin (Nitroglycerin (Sl Tab) 0.4 Mg) 1 tab Q5M PRN SL CHEST PAIN; Start 02/24/16 at 02:00 Hydralazine HCl (Apresoline) 10 mg Q6H PRN IV SBP > 160 Last administered on 16:28; Admin Dose 10 MG; Start 02/24/16 at 02:00 Labetalol HCl (Labetalol) 10 mg Q6 PRN IV ELEVATED BLOOD PRESSURE; Start at 23:00 Guaifenesin/ Dextromethorphan (Robitussin Dm Liquid Cup) 5 ml Q6 PRN PO COUGH Last administered on 02/27/16 18:12; Admin Dose 5 ML; Start 02/24/16 at 23:00 Nicotine (Nicoderm 21 Mg/ 24hr) 1 patch DAILY TRANSDERM Last administered on 08:15; Admin Dose 1 PATCH; Start 02/26/16 at 09:00 Levothyroxine Sodium (Synthroid) 25 mcg DAILY@06 PO Last administered on 06:14; Admin Dose 25 MCG; Start 02/28/16 at 06:00 Hydromorphone HCl (Dilaudid) 0.5 mg Q3 PRN IV PAIN Last administered on 10:24; Admin Dose 0.5 MG; Start 03/02/16 at 17:00 Heparin Sodium (Porcine) (Heparin (5000 Units/0.5 ml)) 5,000 unit BID SC Last administered on 03/26/16 08:16; Admin Dose 5,000 UNIT; Start 03/02/16 at 21:30 Dicyclomine HCl (Bentyl) 10 mg BID PO Last administered on 03/26/16 08:10; Admin Dose 10 MG; Start 03/15/16 at 21:00 Metronidazole (Flagyl) 500 mg Q8 PO Last administered on 03/26/16 06:14; Admin Dose 500 MG; Start 03/16/16 at 22:00 Verapamil HCl (Verapamil) 5 mg Q6H PRN IV ELEVATED HEART RATE Last administered on 03/17/16 23:45; Admin Dose 5 MG; Start 03/17/16 at 23:30 Zolpidem Tartrate (Ambien) 5 mg HS PRN PO INSOMNIA Last administered on 23:56; Admin Dose 5 MG; Start 03/17/16 at 23:30 Metoprolol Tartrate (Lopressor) 5 mg Q4H PRN IV ELEVATED HEART RATE Last administered on 03/18/16 01:41; Admin Dose 5 MG; Start 03/18/16 at 01:30 Acetaminophen 650 mg 650 mg Q6H PRN PO PAIN AND OR ELEVATED TEMP Last administered on 03/19/16 01:18; Admin Dose 650 MG; Start 03/18/16 at 23:30 Meropenem (Merrem 500 Mg/ 100 ml (Pmx)) 100 ml @ 200 mls/hr Q12 IVPB Last administered on 03/26/16 08:34; Admin Dose 200 MLS/HR; Start 03/19/16 at 09:00 Aspirin (Aspirin) 81 mg DAILY NGT Last administered on 03/26/16 08:10; Admin Dose 81 MG; Start 03/21/16 at 09:00 Furosemide (Lasix) 20 mg DAILY IV Last administered on 03/26/16 08:10; Admin Dose 20 MG; Start 03/21/16 at 09:00 Pantoprazole (Protonix Iv) 40 mg DAILY@06 IV Last administered on 03/26/16 06: 14; Admin Dose 40 MG; Start 03/21/16 at 06:00 Collagenase 1 applic 1 applic DAILY TOP Last administered on 03/25/16 10:00; Admin Dose 1 APPLIC; Start 03/21/16 at 15:00 Vancomycin HCl/ Sodium Chloride (Vancocin/NS) 150 ml @ 75 mls/hr Q36H IVPB Last administered on 03/25/16 14:05; Admin Dose 75 MLS/HR; Start 03/22/16 at 13: 00 Metoprolol Tartrate (Lopressor) 25 mg BID PO Last administered on 03/26/16 08: 14; Admin Dose 25 MG; Start 03/22/16 at 21:00 IV Flush (NS 10 ml) 10 ml PRN PRN IV IV PROTOCOL; Start 03/22/16 at 12:30 Hydralazine HCl (Apresoline) 50 mg Q8 PO Last administered on 03/26/16 06:14; Admin Dose 50 MG; Start 03/23/16 at 14:00 Citric Acid/ Sodium Citrate (Bicitra) 30 ml BID NGT Last administered on 08:10; Admin Dose 30 ML; Start 03/24/16 at 09:00 Miscellaneous Information (*Rx Drug Level Order Reminder*) 1 ONCE ONCE XX ; Start 03/25/16 at 12:00; Stop 03/25/16 at 12:01 Fluconazole (Diflucan) 100 mg DAILY PO Last administered on 03/26/16 08:10; Admin Dose 100 MG; Start 03/25/16 at 09:00 Loperamide HCl 2 mg 2 mg ONCE ONCE PO Last administered on 03/25/16 10:31; Admin Dose 2 MG; Start 03/25/16 at 10:30; Stop 03/25/16 at 10:31 Potassium Chloride/Dextrose/ Sod Cl (D5-1/2ns + KCl 20 Meq) 1,000 ml @ 30 mls/ hr Q24H IV Last administered on 03/25/16t 10:32; Admin Dose 30 MLS/HR; Start at 10:30 HOWARD LEVY MD Mar 26, 2016 10:50
--- NOTE | 2016-03-26 11:41 | CONS ---
Date/Time of Note Date/Time of Note DATE: 03/26/16 TIME: 11:37 Assessment/Plan Assessment/Plan Chief Complaint/Hosp Course ID PROGRESS NOTE * POD-> 17 VATS for Left Hemothorax * POD-> 17 Ex-Lap, cultures and pathology (-) TOTAL ABX DAY # => Vanco IV, Merrem,Flagyl, Diflucan ANTIMICROBIALS: 1. Vancomycin, day #8 2. Meropenem, day #8 3. Flagyl. 4. Fluconazole. 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 PHYSICAL EXAMINATION: GENERAL: 80 yo F on supplemental O2 HEENT: Unremarkable NECK: Supple, trachea midline. CHEST: Equal chest rise bilaterally, without dyspnea HEART: RRR ABDOMEN: Soft EXTREMITIES: Warm ID ASSESSMENT: 80 yo F s/p fall from roof in [place]->C-spine injury, 4-rb fx w/left PTX/ Hemothorax, s/p CT removed in [place] admit: * POD#16 -> 02/25/16 VATS for Left Hemothorax * POD#11 -> 03/01/16 Ex-Lap, cultures and pathology (-) 1. Acute hypoxic respiratory failure w/Shortness of breath - 2/2 to Left Hemothorax/PTx w/LLL PNA= RESOLVING * EXTUBATED 2. Acute Spine Injuries * C-Spine Injury: grade 1 anterolisthesis C4-5 and C7-1 without fracture. * Acute fractures of the left T3-T12 and L1-L4 transverse processes. 3. Sepsis w/Fevers >103.+, Leukocytosis, tachycardia = RESOLVED 4. STAPH-CoNS Bacteremia on admission 1/2 bottles = Skin contaminant 5. Diffuse Colitis on CT = possible ischemic colitis vs ABX associated 6. PAD=> Moderate to marked narrowing of the proximal superior mesenteric artery. 7. Essential hypertension - prn hydralazine for sbp > 160 8. Transaminitis - 2/2 sepsis w/(-)hepatitis panel 9. Anemia - normocytic - check folate/b12, iron panel, occult blood stool 10. Tobaccoism -> Smoking abuse 11. Enterococcal bacteruria vs early UTI = sensitive to Vanco IV 12. (+)QTF Gold Serology: Per Dr. Ornelas's consult note 02/28/16; no evidence active MTB, no INH at this time * Can consider INH + B6 future when acute illness phase treated and liver fx WNL (+)MRSA Nares -> Bactroban onboard INVASIVES: PIV, FC, CT ABX ALLERGY: KNDA CURRENT ABX: TOTAL ABX DAY # => Vanco IV, Merrem,Flagyl, Diflucan ANTIMICROBIALS: 1. Vancomycin, day #8 2. Meropenem, day #8 3. Flagyl. 4. Fluconazole. ID RECOMMENDATIONS: * Continue current ABX per ID team who will f/u next week with further recommendations * Aspiration precautions . . Problems: Consultation Date/Type/Reason Admit Date/Time Feb 24, 2016 at 04:06 Type of Consultation: ID Referring Provider: HOWARD LEVY MD Exam/Review of Systems Vital Signs Vitals Vital Signs Date Time Temp Pulse Resp B/P Pulse Ox O2 Delivery O2 Flow Rate FiO2 03/26/16 10:00 68 21 133/61 97 Room Air 03/26/16 08:00 97.7 03/25/16 20:15 2.0 03/25/16 01:44 28 Intake and Output 03/25/16 03/25/16 03/26/16 15:00 23:00 07:00 Intake Total 755 ml 840 ml 330 ml Output Total 680 ml 370 ml 210 ml Balance 75 ml 470 ml 120 ml Results Result Diagram: 03/26/16 0430 03/26/16 0430 Results 24 hrs Laboratory Tests Test 03/25/16 11:59 03/26/16 04:30 Vancomycin Level Trough 13.3 Anion Gap 9 Basophils # 0.1 Basophils % 0.8 Blood Morphology Comment Blood Urea Nitrogen 16 Calcium Level 6.9 L Carbon Dioxide Level 26 Chloride Level 112 H Creatinine 0.60 Eosinophils # 0.1 Eosinophils % 0.9 Glucose Level 90 Hematocrit 30.0 L Hemoglobin 9.9 L Lymphocytes # 1.1 Lymphocytes % 15.4 Mean Corpuscular Hemoglobin 30.3 Mean Corpuscular Hemoglobin Concent 33.0 Mean Corpuscular Volume 91.8 Mean Platelet Volume 10.9 H Monocytes # 0.6 Monocytes % 8.4 Neutrophils # 5.2 Neutrophils % 74.5 Nucleated Red Blood Cells # 0.0 Nucleated Red Blood Cells % 0.0 Platelet Count 248 Potassium Level 3.1 L Red Blood Count 3.26 L Red Cell Distribution Width 19.4 H Sodium Level 144 White Blood Count 7.0 Medications Medications Current Medications Lorazepam (Ativan) 0.5 mg Q6H PRN IV ANXIETY Last administered on 03/17/16 18: 50; Admin Dose 0.5 MG; Start 02/24/16 at 02:00 Ondansetron HCl (Zofran Inj) 4 mg Q6H PRN IV NAUSEA AND/OR VOMITING Last administered on 03/01/16 13:17; Admin Dose 4 MG; Start 02/24/16 at 02:00 Nitroglycerin (Nitroglycerin (Sl Tab) 0.4 Mg) 1 tab Q5M PRN SL CHEST PAIN; Start 02/24/16 at 02:00 Hydralazine HCl (Apresoline) 10 mg Q6H PRN IV SBP > 160 Last administered on 16:28; Admin Dose 10 MG; Start 02/24/16 at 02:00 Labetalol HCl (Labetalol) 10 mg Q6 PRN IV ELEVATED BLOOD PRESSURE; Start at 23:00 Guaifenesin/ Dextromethorphan (Robitussin Dm Liquid Cup) 5 ml Q6 PRN PO COUGH Last administered on 02/27/16 18:12; Admin Dose 5 ML; Start 02/24/16 at 23:00 Nicotine (Nicoderm 21 Mg/ 24hr) 1 patch DAILY TRANSDERM Last administered on 08:15; Admin Dose 1 PATCH; Start 02/26/16 at 09:00 Levothyroxine Sodium (Synthroid) 25 mcg DAILY@06 PO Last administered on 06:14; Admin Dose 25 MCG; Start 02/28/16 at 06:00 Hydromorphone HCl (Dilaudid) 0.5 mg Q3 PRN IV PAIN Last administered on 10:24; Admin Dose 0.5 MG; Start 03/02/16 at 17:00 Heparin Sodium (Porcine) (Heparin (5000 Units/0.5 ml)) 5,000 unit BID SC Last administered on 03/26/16 08:16; Admin Dose 5,000 UNIT; Start 03/02/16 at 21:30 Dicyclomine HCl (Bentyl) 10 mg BID PO Last administered on 03/26/16 08:10; Admin Dose 10 MG; Start 03/15/16 at 21:00 Metronidazole (Flagyl) 500 mg Q8 PO Last administered on 03/26/16 06:14; Admin Dose 500 MG; Start 03/16/16 at 22:00 Verapamil HCl (Verapamil) 5 mg Q6H PRN IV ELEVATED HEART RATE Last administered on 03/17/16 23:45; Admin Dose 5 MG; Start 03/17/16 at 23:30 Zolpidem Tartrate (Ambien) 5 mg HS PRN PO INSOMNIA Last administered on 23:56; Admin Dose 5 MG; Start 03/17/16 at 23:30 Metoprolol Tartrate (Lopressor) 5 mg Q4H PRN IV ELEVATED HEART RATE Last administered on 03/18/16 01:41; Admin Dose 5 MG; Start 03/18/16 at 01:30 Acetaminophen 650 mg 650 mg Q6H PRN PO PAIN AND OR ELEVATED TEMP Last administered on 03/19/16 01:18; Admin Dose 650 MG; Start 03/18/16 at 23:30 Meropenem (Merrem 500 Mg/ 100 ml (Pmx)) 100 ml @ 200 mls/hr Q12 IVPB Last administered on 03/26/16 08:34; Admin Dose 200 MLS/HR; Start 03/19/16 at 09:00 Aspirin (Aspirin) 81 mg DAILY NGT Last administered on 03/26/16 08:10; Admin Dose 81 MG; Start 03/21/16 at 09:00 Furosemide (Lasix) 20 mg DAILY IV Last administered on 03/26/16 08:10; Admin Dose 20 MG; Start 03/21/16 at 09:00 Pantoprazole (Protonix Iv) 40 mg DAILY@06 IV Last administered on 03/26/16 06: 14; Admin Dose 40 MG; Start 03/21/16 at 06:00 Collagenase 1 applic 1 applic DAILY TOP Last administered on 03/25/16 10:00; Admin Dose 1 APPLIC; Start 03/21/16 at 15:00 Vancomycin HCl/ Sodium Chloride (Vancocin/NS) 150 ml @ 75 mls/hr Q36H IVPB Last administered on 03/25/16 14:05; Admin Dose 75 MLS/HR; Start 03/22/16 at 13: 00 Metoprolol Tartrate (Lopressor) 25 mg BID PO Last administered on 03/26/16 08: 14; Admin Dose 25 MG; Start 03/22/16 at 21:00 IV Flush (NS 10 ml) 10 ml PRN PRN IV IV PROTOCOL; Start 03/22/16 at 12:30 Hydralazine HCl (Apresoline) 50 mg Q8 PO Last administered on 03/26/16 06:14; Admin Dose 50 MG; Start 03/23/16 at 14:00 Citric Acid/ Sodium Citrate (Bicitra) 30 ml BID NGT Last administered on 08:10; Admin Dose 30 ML; Start 03/24/16 at 09:00 Miscellaneous Information (*Rx Drug Level Order Reminder*) 1 ONCE ONCE XX ; Start 03/25/16 at 12:00; Stop 03/25/16 at 12:01 Fluconazole (Diflucan) 100 mg DAILY PO Last administered on 03/26/16 08:10; Admin Dose 100 MG; Start 03/25/16 at 09:00 Loperamide HCl 2 mg 2 mg ONCE ONCE PO Last administered on 03/25/16 10:31; Admin Dose 2 MG; Start 03/25/16 at 10:30; Stop 03/25/16 at 10:31 Potassium Chloride/Dextrose/ Sod Cl (D5-1/2ns + KCl 20 Meq) 1,000 ml @ 30 mls/ hr Q24H IV Last administered on 03/25/16 10:32; Admin Dose 30 MLS/HR; Start at 10:30 COREY LUIS NP Mar 26, 2016 11:40
--- NOTE | 2016-03-26 12:27 | CONS ---
Date/Time of Note Date/Time of Note DATE: 03/26/16 TIME: 12:25 Assessment/Plan Assessment/Plan Chief Complaint/Hosp Course IMPRESSION: 1. Positive troponin, assess significance in the setting of renal failure, status post code blue with respiratory arrest.-slowly downtrending 2. Cardiomyopathy with decreased left ventricular ejection fraction/CHF- systolic acute on chronic. last EF being approximately 35% by echo. 3. Abnormal electrocardiogram, assess for acute coronary syndrome. 4. Hypotension-now improved with HTN 5. Anemia. 6. Renal failure-improving 7. Hypokalemia s/p repletion 8. Hypernatremia-improved 9. Hemothorax status post VATS with decortication. 10. Status post pulmonary arrest. 11. Anemia. 12. Lower extremity edema. 14. Colitis 15. Resp failure s/p extubation Recc: -tele -serial ecg's -Increase lasix diuresis and follow volume status closely -Continue abx's and f/u cx data -Continue BB/hydralazine and follow BP closely Problems: Consultation Date/Type/Reason Admit Date/Time Feb 24, 2016 at 04:06 Initial Consult Date 03/20/16 Type of Consultation: Cardiology Reason for Consultation CHF Referring Provider: HOWADR LEVY MD Exam/Review of Systems Vital Signs Vitals Vital Signs Date Time Temp Pulse Resp B/P Pulse Ox O2 Delivery O2 Flow Rate FiO2 03/26/16 10:30 65 19 140/51 97 Room Air 03/26/16 08:00 97.7 03/25/16 20:15 2.0 03/25/16 01:44 28 Intake and Output 03/25/16 03/25/16 03/26/16 15:00 23:00 07:00 Intake Total 755 ml 840 ml 330 ml Output Total 680 ml 370 ml 210 ml Balance 75 ml 470 ml 120 ml Exam Review of Systems: CONSTITUTIONAL: No fevers, chills. PULMONARY: No sob CARDIOVASCULAR: No chest pain/palpitations GASTROINTESTINAL: No nausea/vomiting. GENITOURINARY: No hematuria/dysuria. MUSCULOSKELETAL: No myagias/arthalgias. PSYCHIATRIC: The patient denies depression. NEUROLOGIC: No weakness Constitutional: alert Psych: no complaints Head: normocephalic ENMT: mucosa pink and moist Neck: jvd (9 cm water), supple Respiratory: diminished breath sounds (at bases/B) Cardiovascular: regular rate and rhythm Gastrointestinal: non-tender, soft Musculoskeletal: muscle tone (normal) Extremities: pitting pedal edema (Bilateral) Neurological: other (No focal deficits) Results Result Diagram: 03/26/16 0430 03/26/16 0430 Results 24 hrs Laboratory Tests Test 03/26/16 04:30 Anion Gap 9 Basophils # 0.1 Basophils % 0.8 Blood Morphology Comment Blood Urea Nitrogen 16 Calcium Level 6.9 L Carbon Dioxide Level 26 Chloride Level 112 H Creatinine 0.60 Eosinophils # 0.1 Eosinophils % 0.9 Glucose Level 90 Hematocrit 30.0 L Hemoglobin 9.9 L Lymphocytes # 1.1 Lymphocytes % 15.4 Mean Corpuscular Hemoglobin 30.3 Mean Corpuscular Hemoglobin Concent 33.0 Mean Corpuscular Volume 91.8 Mean Platelet Volume 10.9 H Monocytes # 0.6 Monocytes % 8.4 Neutrophils # 5.2 Neutrophils % 74.5 Nucleated Red Blood Cells # 0.0 Nucleated Red Blood Cells % 0.0 Platelet Count 248 Potassium Level 3.1 L Red Blood Count 3.26 L Red Cell Distribution Width 19.4 H Sodium Level 144 White Blood Count 7.0 Medications Medications Current Medications Lorazepam (Ativan) 0.5 mg Q6H PRN IV ANXIETY Last administered on 03/17/16 18: 50; Admin Dose 0.5 MG; Start 02/24/16 at 02:00 Ondansetron HCl (Zofran Inj) 4 mg Q6H PRN IV NAUSEA AND/OR VOMITING Last administered on 03/01/16 13:17; Admin Dose 4 MG; Start 02/24/16 at 02:00 Nitroglycerin (Nitroglycerin (Sl Tab) 0.4 Mg) 1 tab Q5M PRN SL CHEST PAIN; Start 02/24/16 at 02:00 Hydralazine HCl (Apresoline) 10 mg Q6H PRN IV SBP > 160 Last administered on 16:28; Admin Dose 10 MG; Start 02/24/16 at 02:00 Labetalol HCl (Labetalol) 10 mg Q6 PRN IV ELEVATED BLOOD PRESSURE; Start at 23:00 Guaifenesin/ Dextromethorphan (Robitussin Dm Liquid Cup) 5 ml Q6 PRN PO COUGH Last administered on 02/27/16 18:12; Admin Dose 5 ML; Start 02/24/16 at 23:00 Nicotine (Nicoderm 21 Mg/ 24hr) 1 patch DAILY TRANSDERM Last administered on 08:15; Admin Dose 1 PATCH; Start 02/26/16 at 09:00 Levothyroxine Sodium (Synthroid) 25 mcg DAILY@06 PO Last administered on 06:14; Admin Dose 25 MCG; Start 02/28/16 at 06:00 Hydromorphone HCl (Dilaudid) 0.5 mg Q3 PRN IV PAIN Last administered on 10:24; Admin Dose 0.5 MG; Start 03/02/16 at 17:00 Heparin Sodium (Porcine) (Heparin (5000 Units/0.5 ml)) 5,000 unit BID SC Last administered on 03/26/16 08:16; Admin Dose 5,000 UNIT; Start 03/02/16 at 21:30 Dicyclomine HCl (Bentyl) 10 mg BID PO Last administered on 03/26/16 08:10; Admin Dose 10 MG; Start 03/15/16 at 21:00 Metronidazole (Flagyl) 500 mg Q8 PO Last administered on 03/26/16 06:14; Admin Dose 500 MG; Start 03/16/16 at 22:00 Verapamil HCl (Verapamil) 5 mg Q6H PRN IV ELEVATED HEART RATE Last administered on 03/17/16 23:45; Admin Dose 5 MG; Start 03/17/16 at 23:30 Zolpidem Tartrate (Ambien) 5 mg HS PRN PO INSOMNIA Last administered on 23:56; Admin Dose 5 MG; Start 03/17/16 at 23:30 Metoprolol Tartrate (Lopressor) 5 mg Q4H PRN IV ELEVATED HEART RATE Last administered on 03/18/16 01:41; Admin Dose 5 MG; Start 03/18/16 at 01:30 Acetaminophen 650 mg 650 mg Q6H PRN PO PAIN AND OR ELEVATED TEMP Last administered on 03/19/16 01:18; Admin Dose 650 MG; Start 03/18/16 at 23:30 Meropenem (Merrem 500 Mg/ 100 ml (Pmx)) 100 ml @ 200 mls/hr Q12 IVPB Last administered on 03/26/16 08:34; Admin Dose 200 MLS/HR; Start 03/19/16 at 09:00 Aspirin (Aspirin) 81 mg DAILY NGT Last administered on 03/26/16 08:10; Admin Dose 81 MG; Start 03/21/16 at 09:00 Furosemide (Lasix) 20 mg DAILY IV Last administered on 03/26/16 08:10; Admin Dose 20 MG; Start 03/21/16 at 09:00 Pantoprazole (Protonix Iv) 40 mg DAILY@06 IV Last administered on 03/26/16 06: 14; Admin Dose 40 MG; Start 03/21/16 at 06:00 Collagenase 1 applic 1 applic DAILY TOP Last administered on 03/25/16 10:00; Admin Dose 1 APPLIC; Start 03/21/16 at 15:00 Vancomycin HCl/ Sodium Chloride (Vancocin/NS) 150 ml @ 75 mls/hr Q36H IVPB Last administered on 03/25/16 14:05; Admin Dose 75 MLS/HR; Start 03/22/16 at 13: 00 Metoprolol Tartrate (Lopressor) 25 mg BID PO Last administered on 03/26/16 08: 14; Admin Dose 25 MG; Start 03/22/16 at 21:00 IV Flush (NS 10 ml) 10 ml PRN PRN IV IV PROTOCOL; Start 03/22/16 at 12:30 Hydralazine HCl (Apresoline) 50 mg Q8 PO Last administered on 03/26/16 06:14; Admin Dose 50 MG; Start 03/23/16 at 14:00 Citric Acid/ Sodium Citrate (Bicitra) 30 ml BID NGT Last administered on 08:10; Admin Dose 30 ML; Start 03/24/16 at 09:00 Miscellaneous Information (*Rx Drug Level Order Reminder*) 1 ONCE ONCE XX ; Start 03/25/16 at 12:00; Stop 03/25/16 at 12:01 Fluconazole (Diflucan) 100 mg DAILY PO Last administered on 03/26/16 08:10; Admin Dose 100 MG; Start 03/25/16 at 09:00 Loperamide HCl 2 mg 2 mg ONCE ONCE PO Last administered on 2/11/17at 10:31; Admin Dose 2 MG; Start 03/25/16 at 10:30; Stop 03/25/16 at 10:31 Potassium Chloride/Dextrose/ Sod Cl (D5-1/2ns + KCl 20 Meq) 1,000 ml @ 30 mls/ hr Q24H IV Last administered on 03/25/16t 10:32; Admin Dose 30 MLS/HR; Start at 10:30 KORINA OCONNOR Mar 26, 2016 12:26
[2016-03-26] MEDS: D5W-0.45 NACL + KCL 20 MEQ 1,000 ML IV SCH (12:51)
--- NOTE | 2016-03-26 13:55 | CONS ---
Date/Time of Note Date/Time of Note DATE: 03/26/16 TIME: 13:54 Consult Date/Type/Reason Admit Date/Time Feb 24, 2016 at 04:06 Type of Consultation: Pulm Ordering Provider: HOWARD LEVY MD Subjective Doing well on 2 L NC. Objective Vital Signs Date Time Temp Pulse Resp B/P Pulse Ox O2 Delivery O2 Flow Rate FiO2 03/26/16 12:26 67 03/26/16 10:30 19 140/51 97 Room Air 03/26/16 08:00 97.7 03/25/16 20:15 2.0 03/25/16 01:44 28 Intake and Output 03/25/16 03/25/16 03/26/16 15:00 23:00 07:00 Intake Total 755 ml 840 ml 330 ml Output Total 680 ml 370 ml 210 ml Balance 75 ml 470 ml 120 ml HEENT: Neck supple; no JVD; no LAD CVS: RRR, S1 and S2 CHEST: Clear ABD: Soft, NT, + BS EXT: No c/c/e Results/Medications Result Diagram: 03/26/16 04303/26/16 0430 Results 24 hrs Laboratory Tests Test 03/26/16 04:30 Anion Gap 9 Basophils # 0.1 Basophils % 0.8 Blood Morphology Comment Blood Urea Nitrogen 16 Calcium Level 6.9 L Carbon Dioxide Level 26 Chloride Level 112 H Creatinine 0.60 Eosinophils # 0.1 Eosinophils % 0.9 Glucose Level 90 Hematocrit 30.0 L Hemoglobin 9.9 L Lymphocytes # 1.1 Lymphocytes % 15.4 Mean Corpuscular Hemoglobin 30.3 Mean Corpuscular Hemoglobin Concent 33.0 Mean Corpuscular Volume 91.8 Mean Platelet Volume 10.9 H Monocytes # 0.6 Monocytes % 8.4 Neutrophils # 5.2 Neutrophils % 74.5 Nucleated Red Blood Cells # 0.0 Nucleated Red Blood Cells % 0.0 Platelet Count 248 Potassium Level 3.1 L Red Blood Count 3.26 L Red Cell Distribution Width 19.4 H Sodium Level 144 White Blood Count 7.0 Medications Current Medications Lorazepam (Ativan) 0.5 mg Q6H PRN IV ANXIETY Last administered on 03/17/16t 18: 50; Admin Dose 0.5 MG; Start 02/24/16 at 02:00 Ondansetron HCl (Zofran Inj) 4 mg Q6H PRN IV NAUSEA AND/OR VOMITING Last administered on 03/01/16 13:17; Admin Dose 4 MG; Start 02/24/16 at 02:00 Nitroglycerin (Nitroglycerin (Sl Tab) 0.4 Mg) 1 tab Q5M PRN SL CHEST PAIN; Start 02/24/16 at 02:00 Hydralazine HCl (Apresoline) 10 mg Q6H PRN IV SBP > 160 Last administered on 16:28; Admin Dose 10 MG; Start 02/24/16 at 02:00 Labetalol HCl (Labetalol) 10 mg Q6 PRN IV ELEVATED BLOOD PRESSURE; Start at 23:00 Guaifenesin/ Dextromethorphan (Robitussin Dm Liquid Cup) 5 ml Q6 PRN PO COUGH Last administered on 02/27/16 18:12; Admin Dose 5 ML; Start 02/24/16 at 23:00 Nicotine (Nicoderm 21 Mg/ 24hr) 1 patch DAILY TRANSDERM Last administered on 08:15; Admin Dose 1 PATCH; Start 02/26/16 at 09:00 Levothyroxine Sodium (Synthroid) 25 mcg DAILY@06 PO Last administered on 06:14; Admin Dose 25 MCG; Start 02/28/16 at 06:00 Hydromorphone HCl (Dilaudid) 0.5 mg Q3 PRN IV PAIN Last administered on 10:24; Admin Dose 0.5 MG; Start 03/02/16 at 17:00 Heparin Sodium (Porcine) (Heparin (5000 Units/0.5 ml)) 5,000 unit BID SC Last administered on 03/26/16 08:16; Admin Dose 5,000 UNIT; Start 03/02/16 at 21:30 Dicyclomine HCl (Bentyl) 10 mg BID PO Last administered on 03/26/16 08:10; Admin Dose 10 MG; Start 03/15/16 at 21:00 Metronidazole (Flagyl) 500 mg Q8 PO Last administered on 03/26/16 06:14; Admin Dose 500 MG; Start 03/16/16 at 22:00 Verapamil HCl (Verapamil) 5 mg Q6H PRN IV ELEVATED HEART RATE Last administered on 03/17/16 23:45; Admin Dose 5 MG; Start 03/17/16 at 23:30 Zolpidem Tartrate (Ambien) 5 mg HS PRN PO INSOMNIA Last administered on 23:56; Admin Dose 5 MG; Start 03/17/16 at 23:30 Metoprolol Tartrate (Lopressor) 5 mg Q4H PRN IV ELEVATED HEART RATE Last administered on 03/18/16 01:41; Admin Dose 5 MG; Start 03/18/16 at 01:30 Acetaminophen 650 mg 650 mg Q6H PRN PO PAIN AND OR ELEVATED TEMP Last administered on 03/19/16 01:18; Admin Dose 650 MG; Start 03/18/16 at 23:30 Meropenem (Merrem 500 Mg/ 100 ml (Pmx)) 100 ml @ 200 mls/hr Q12 IVPB Last administered on 03/26/16 08:34; Admin Dose 200 MLS/HR; Start 03/19/16 at 09:00 Aspirin (Aspirin) 81 mg DAILY NGT Last administered on 03/26/16 08:10; Admin Dose 81 MG; Start 03/21/16 at 09:00 Pantoprazole (Protonix Iv) 40 mg DAILY@06 IV Last administered on 03/26/16 06: 14; Admin Dose 40 MG; Start 03/21/16 at 06:00 Collagenase 1 applic 1 applic DAILY TOP Last administered on 03/25/16 10:00; Admin Dose 1 APPLIC; Start 03/21/16 at 15:00 Vancomycin HCl/ Sodium Chloride (Vancocin/NS) 150 ml @ 75 mls/hr Q36H IVPB Last administered on 03/25/16 14:05; Admin Dose 75 MLS/HR; Start 03/22/16 at 13: 00 Metoprolol Tartrate (Lopressor) 25 mg BID PO Last administered on 03/26/16 08: 14; Admin Dose 25 MG; Start 03/22/16 at 21:00 IV Flush (NS 10 ml) 10 ml PRN PRN IV IV PROTOCOL; Start 03/22/16 at 12:30 Hydralazine HCl (Apresoline) 50 mg Q8 PO Last administered on 03/26/16 06:14; Admin Dose 50 MG; Start 03/23/16 at 14:00 Citric Acid/ Sodium Citrate (Bicitra) 30 ml BID NGT Last administered on 08:10; Admin Dose 30 ML; Start 03/24/16 at 09:00 Fluconazole 100 mg 100 mg DAILY PO Last administered on 03/26/16 08:10; Admin Dose 100 MG; Start 03/25/16 at 09:00 Potassium Chloride/Dextrose/ Sod Cl (D5-1/2ns + KCl 20 Meq) 1,000 ml @ 30 mls/ hr Q24H IV Last administered on 03/26/16 12:51; Admin Dose 30 MLS/HR; Start at 10:30 Assessment/Plan Additional Assessment/Plan IMP 1. Respiratory Failure/Vent--s/p extubation 2. Right pleural effusion status post thoracentesis. Exudative 3. History of bowel obstruction status post surgery. Pancolitis on CT 4. Deconditioning 5. History of fall with pneumothorax RECS: 1. Mobilize OOB/ICS 2. PT/OT 3. Telemetry okay 4. Aspiration precautions 5. Speech/Swallow ALBINO Vera MD Mar 26, 2016 13:55
--- NOTE | 2016-03-26 17:12 | CONS ---
Date/Time of Note Date/Time of Note DATE: 03/26/16 TIME: 17:11 Assessment/Plan Assessment/Plan Additional Assessment/Plan Impression: 1. Pancolitis: likely ischemic. c.difficile negative, no infarct on laparotomy exam, culture, wbc in stool negative. 2. Fracture of the ribs. 3. Pneumothorax status post chest tube placement. 4. History of nicotine addiction. 5. Cervical spine injury. 6. History of fall. 7. Peripheral arterial disease. 8. Mild elevation of alkaline phosphatase, most probably related to alcoholic liver disease. 9. Anemia. 10. dysphagia on tube feeds 11.s/p exploratory laparotomy,no bowel resection 13. renal failure,improving [address] shows anasarca ascites, pleural effusion,colitis worsening 16 respiratory failure,extubated 17 leucocytosis,trending down PLAN: Plan continue all supportive care po feeding discussed with family Consultation Date/Type/Reason Admit Date/Time Feb 24, 2016 at 04:06 Type of Consultation: Pulm Referring Provider: HOWARD LEVY MD 24 HR Interval Summary Free Text/Dictation mild abdominal discomfort Constitutional: improved Exam/Review of Systems Vital Signs Vitals Vital Signs Date Time Temp Pulse Resp B/P Pulse Ox O2 Delivery O2 Flow Rate FiO2 03/26/16 16:27 75 03/26/16 16:00 97.5 20 138/56 99 Room Air 03/25/16 20:15 2.0 03/25/16 01:44 28 Intake and Output 03/25/16 03/25/16 03/26/16 15:00 23:00 07:00 Intake Total 755 ml 840 ml 330 ml Output Total 680 ml 370 ml 210 ml Balance 75 ml 470 ml 120 ml Exam Constitutional: alert, oriented, well developed Psych: nl mood/affect, no complaints Head: atraumatic, normocephalic Eyes: EOMI, PERRL, nl conjunctiva, nl lids, nl sclera ENMT: nl external ears & nose, nl lips & teeth, nl nasal mucosa & septum Neck: non-tender, supple Respiratory: clear to auscultation, normal air movement Cardiovascular: nl pulses, regular rate and rhythm Gastrointestinal: nl liver, spleen, non-tender, soft Musculoskeletal: nl extremities to inspection, nl gait and stance Extremities: normal pulses Neurological: 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, nl mental status, nl speech, nl strength Skin: nl turgor, No rash or lesions Lymph: nl lymph nodes Results Result Diagram: 03/26/16 0430 03/26/16 0430 Results 24 hrs Laboratory Tests Test 03/26/16 04:30 Anion Gap 9 Basophils # 0.1 Basophils % 0.8 Blood Morphology Comment Blood Urea Nitrogen 16 Calcium Level 6.9 L Carbon Dioxide Level 26 Chloride Level 112 H Creatinine 0.60 Eosinophils # 0.1 Eosinophils % 0.9 Glucose Level 90 Hematocrit 30.0 L Hemoglobin 9.9 L Lymphocytes # 1.1 Lymphocytes % 15.4 Mean Corpuscular Hemoglobin 30.3 Mean Corpuscular Hemoglobin Concent 33.0 Mean Corpuscular Volume 91.8 Mean Platelet Volume 10.9 H Monocytes # 0.6 Monocytes % 8.4 Neutrophils # 5.2 Neutrophils % 74.5 Nucleated Red Blood Cells # 0.0 Nucleated Red Blood Cells % 0.0 Platelet Count 248 Potassium Level 3.1 L Red Blood Count 3.26 L Red Cell Distribution Width 19.4 H Sodium Level 144 White Blood Count 7.0 Medications Medications Current Medications Lorazepam (Ativan) 0.5 mg Q6H PRN IV ANXIETY Last administered on 03/17/16 18: 50; Admin Dose 0.5 MG; Start 02/24/16 at 02:00 Ondansetron HCl (Zofran Inj) 4 mg Q6H PRN IV NAUSEA AND/OR VOMITING Last administered on 03/01/16 13:17; Admin Dose 4 MG; Start 02/24/16 at 02:00 Nitroglycerin (Nitroglycerin (Sl Tab) 0.4 Mg) 1 tab Q5M PRN SL CHEST PAIN; Start 02/24/16 at 02:00 Hydralazine HCl (Apresoline) 10 mg Q6H PRN IV SBP > 160 Last administered on 16:28; Admin Dose 10 MG; Start 02/24/16 at 02:00 Labetalol HCl (Labetalol) 10 mg Q6 PRN IV ELEVATED BLOOD PRESSURE; Start at 23:00 Guaifenesin/ Dextromethorphan (Robitussin Dm Liquid Cup) 5 ml Q6 PRN PO COUGH Last administered on 02/27/16 18:12; Admin Dose 5 ML; Start 02/24/16 at 23:00 Nicotine (Nicoderm 21 Mg/ 24hr) 1 patch DAILY TRANSDERM Last administered on 08:15; Admin Dose 1 PATCH; Start 02/26/16 at 09:00 Levothyroxine Sodium (Synthroid) 25 mcg DAILY@06 PO Last administered on 06:14; Admin Dose 25 MCG; Start 02/28/16 at 06:00 Hydromorphone HCl (Dilaudid) 0.5 mg Q3 PRN IV PAIN Last administered on 16:27; Admin Dose 0.5 MG; Start 03/02/16 at 17:00 Heparin Sodium (Porcine) (Heparin (5000 Units/0.5 ml)) 5,000 unit BID SC Last administered on 03/26/16 08:16; Admin Dose 5,000 UNIT; Start 03/02/16 at 21:30 Dicyclomine HCl (Bentyl) 10 mg BID PO Last administered on 03/26/16 08:10; Admin Dose 10 MG; Start 03/15/16 at 21:00 Metronidazole (Flagyl) 500 mg Q8 PO Last administered on 03/26/16 15:30; Admin Dose 500 MG; Start 03/16/16 at 22:00 Verapamil HCl (Verapamil) 5 mg Q6H PRN IV ELEVATED HEART RATE Last administered on 03/17/16 23:45; Admin Dose 5 MG; Start 03/17/16 at 23:30 Zolpidem Tartrate (Ambien) 5 mg HS PRN PO INSOMNIA Last administered on 23:56; Admin Dose 5 MG; Start 03/17/16 at 23:30 Metoprolol Tartrate (Lopressor) 5 mg Q4H PRN IV ELEVATED HEART RATE Last administered on 03/18/16 01:41; Admin Dose 5 MG; Start 03/18/16 at 01:30 Acetaminophen 650 mg 650 mg Q6H PRN PO PAIN AND OR ELEVATED TEMP Last administered on 03/19/16 01:18; Admin Dose 650 MG; Start 03/18/16 at 23:30 Meropenem (Merrem 500 Mg/ 100 ml (Pmx)) 100 ml @ 200 mls/hr Q12 IVPB Last administered on 03/26/16 08:34; Admin Dose 200 MLS/HR; Start 03/19/16 at 09:00 Aspirin (Aspirin) 81 mg DAILY NGT Last administered on 03/26/16 08:10; Admin Dose 81 MG; Start 03/21/16 at 09:00 Pantoprazole (Protonix Iv) 40 mg DAILY@06 IV Last administered on 03/26/16 06: 14; Admin Dose 40 MG; Start 03/21/16 at 06:00 Collagenase 1 applic 1 applic DAILY TOP Last administered on 03/25/16 10:00; Admin Dose 1 APPLIC; Start 03/21/16 at 15:00 Vancomycin HCl/ Sodium Chloride (Vancocin/NS) 150 ml @ 75 mls/hr Q36H IVPB Last administered on 03/25/16 14:05; Admin Dose 75 MLS/HR; Start 03/22/16 at 13: 00 Metoprolol Tartrate (Lopressor) 25 mg BID PO Last administered on 03/26/16 08: 14; Admin Dose 25 MG; Start 03/22/16 at 21:00 IV Flush (NS 10 ml) 10 ml PRN PRN IV IV PROTOCOL; Start 03/22/16 at 12:30 Hydralazine HCl (Apresoline) 50 mg Q8 PO Last administered on 03/26/16 15:30; Admin Dose 50 MG; Start 03/23/16 at 14:00 Citric Acid/ Sodium Citrate (Bicitra) 30 ml BID NGT Last administered on 08:10; Admin Dose 30 ML; Start 03/24/16 at 09:00 Fluconazole 100 mg 100 mg DAILY PO Last administered on 03/26/16 08:10; Admin Dose 100 MG; Start 03/25/16 at 09:00 Potassium Chloride/Dextrose/ Sod Cl (D5-1/2ns + KCl 20 Meq) 1,000 ml @ 30 mls/ hr Q24H IV Last administered on 03/26/16 12:51; Admin Dose 30 MLS/HR; Start at 10:30 CHARISSA WILHELM MD Mar 26, 2016 17:12
--- NOTE | 2016-03-26 19:10 | CONS ---
DATE OF ADMISSION: 02/24/2016 DATE OF CONSULTATION: 03/25/2016 HISTORY OF PRESENT ILLNESS: The patient is a 80-year-old female who was transferred to intensive ca re unit for respiratory failure. She was intubated and successfully extubated. She passed the swal low study and now able to tolerate p.o. feeding. The only complaint is mild lower abdominal discomf ort. OBJECTIVE: VITAL SIGNS: Stable. ABDOMEN: Benign. Mild tenderness in the lower abdomen. CARDIOVASCULAR: No murmur. LUNGS: Air entry diminished at both bases. CENTRAL NERVOUS SYSTEM: Grossly within normal limit. EXTREMITIES: No edema. LABORATORY DATA: Potassium was 2.7. The patient's WBC has come down to 6.7, hematocrit is 29. IMPRESSION: 1. Pneumonia. 2. Pleural effusion. 3. Colitis, much better. 4. Hypokalemia. 5. Status post extubation for respiratory failure. 6. Leukocytosis, resolved. 7. Status post exploratory laparotomy. 8. Anemia. PLAN: At this point, is to continue present care. Aspiration precautions and encourage p.o. feedin g. Dictated By: CHARISSA TADEO/NTS Conf#: [id number] DID#: [id number] CC: CHARISSA WILHELM MD; REMINGTON ZELAYA MD;*End*
--- NOTE | 2016-03-26 19:55 | PN ---
Date/Time of Note Date/Time of Note DATE: 03/26/16 TIME: 19:54 Assessment/Plan Lines/Catheters IV Catheter Type (from Rust): PICC Line Francois in Place (from Rust): Yes Assessment/Plan Chief Complaint/Hosp Course 1. Abdominal pain, with CT diagnosis of pancolitis, with significant leukocytosis and bandemia. s/p Lap exploration and only small mid transverse with min mottling. Bowel function. -Antibiotics per ID -Judicious fluid management 2. Sepsis, multifactorial (pancolitis ? ischemic, urinary tract infection, pulmonary infiltrates, bacteremia). Leukocytosis ? etiology (aspiration vs other). Improved again. -Antibiotic therapy. -Judicious fluid management. -Close monitoring. 3. Renal insufficiency secondary to sepsis. -Continue judicious fluid management. -Avoid nephrotoxic agents as possible. 4. Anemia, with recent hemothorax requiring VATS decortication. -Transfuse as needed. 5. Hypoalbuminemia. -Eventual nutritional optimization. 6. Hypernatremia -Correct with fluid management. 7. Hypertension. -Nutritional and medication optimization. 8. Hypothyroidism. -Replace hormone. 9. Hemopneumothorax, status post VATS. CT removed -followed by CT surgery. 10. Cervical spine injury, being maintained in brace by neurosurgery. 11. Respiratory distress/code s/p re-intubation. ? Aspiration PNA. Extubated again. Swallow eval. -pulmonary toilette -abx Thank you, Problems: Subjective 24 Hr Interval Summary Past swallow eval. No f/c. No nausea or vomiting. Bowel function. Min bloated. No cough. No sz. No rash. No abdominal pain. No chest pain or shortness of breath. Exam/Review of Systems Vital Signs Vitals Vital Signs Date Time Temp Pulse Resp B/P Pulse Ox O2 Delivery O2 Flow Rate FiO2 03/26/16 18:31 21 03/26/16 18:00 74 17 138/51 96 Room Air 03/26/16 16:00 97.5 03/25/16 20:15 2.0 Intake and Output 03/25/16 03/25/16 03/26/16 15:00 23:00 07:00 Intake Total 755 ml 840 ml 330 ml Output Total 680 ml 370 ml 210 ml Balance 75 ml 470 ml 120 ml Exam Free Text/Dictation GENERAL: NAD. Responsive HEENT: Pupils equal, reactive. No scleral icterus. Mucous membranes are somewhat dry. NECK: No crepitus. No JVD. PULMONARY: Normal respiratory effort ABDOMEN: No rebound/guarding/rigidity. Distended. EXTREMITIES: Trace edema. VASCULAR: Capillary refill is 2 seconds. NEUROLOGIC: Responsive SKIN: No rashes/jaundice. PSYCH: normal affect Results Result Diagram: 03/26/1642903/26/16429 CHRISTIANO JENNINGS MD Mar 26, 2016 19:55
[2016-03-26] MEDS: ZOLPIDEM 5 MG TAB PO PRN (21:06)
[2016-03-27] VITALS (11 sets, daily range): BP systolic 131–176; BP diastolic 55–74; PULSE 64–79; RESP 18–21
[2016-03-27] MEDS: VANCOMYCIN 750 MG in SOD CHLORIDE 0.9% 150 ML IVPB SCH (02:26)
[2016-03-27] MEDS: D5W-0.45 NACL + KCL 20 MEQ 1,000 ML IV SCH (02:39)
[2016-03-27] MEDS: FUROSEMIDE 20 MG INJ IV SCH ×2 (05:29→17:11)
[2016-03-27] MEDS: PANTOPRAZOLE 40 MG INJ IV SCH (05:30)
[2016-03-27] MEDS: metroNIDAZOLE 500 MG TAB PO SCH ×3 (05:30→21:57)
[2016-03-27] MEDS: LEVOTHYROXINE 25 MCG TAB PO SCH (06:37)
[2016-03-27 07:58] LABS: BASOPHIL # 0.1 10^3/ul (0.0-0.1); BASOPHILS % 0.8 % (0.0-2.0); EOSINOPHILS # 0.1 10^3/ul (0.0-0.5); EOSINOPHILS % 1.2 % (0.0-7.0); HEMATOCRIT 30.6 % (37.0-47.0); LYMPHOCYTES # 1.3 10^3/ul (0.8-2.9); LYMPHOCYTES % 18.3 % (15.0-51.0); MEAN CORPUSCULAR HEMOGLOBIN 30.1 pg (29.0-33.0); MEAN CORPUSCULAR HGB CONC 32.8 g/dl (32.0-37.0); MEAN CORPUSCULAR VOLUME 91.9 fl (82.0-101.0); MEAN PLATELET VOLUME 10.5 fl (7.4-10.4); MONOCYTE # 0.7 10^3/ul (0.3-0.9); MONOCYTES % 9.9 % (0.0-11.0); NEUTROPHIL # 4.9 10^3/ul (1.6-7.5); NEUTROPHILS % 69.8 % (39.0-77.0); PLATELET COUNT 232 10^3/UL (140-440); RED BLOOD COUNT 3.33 10^6/ul (4.20-5.40); RED CELL DISTRIBUTION WIDTH 18.4 % (11.5-14.5)
[2016-03-27 08:10] LABS: CONDITION 1; LH ANALYZER COMMENTS 1
[2016-03-27 08:11] LABS: INR 1.25; PROTIME 15.8 Sec (12.2-14.2); PT RATIO 1.2
[2016-03-27 08:12] LABS: PARTIAL THROMBOPLASTIN TIME 35.1 Sec (25.0-35.0)
[2016-03-27 08:19] LABS: POTASSIUM 3.2 mmol/L (3.5-5.1)
[2016-03-27 08:21] LABS: CREATININE 0.62 mg/dl (0.44-1.00)
[2016-03-27 08:22] LABS: CALCIUM 7.1 mg/dl (8.4-10.2)
[2016-03-27] MEDS: ASPIRIN 81 MG TAB NGT SCH (09:32)
[2016-03-27] MEDS: MEROPENEM 500 MG/100 ML (PMX) 100 ML IVPB SCH ×2 (09:32→21:58)
[2016-03-27] MEDS: METOPROLOL 25 MG TAB PO SCH ×2 (09:33→20:58)
[2016-03-27] MEDS: HEPARIN 5,000 UNIT/0.5 ML SYG SC SCH ×2 (09:34→21:11)
--- NOTE | 2016-03-27 12:46 | PN ---
DATE: 03/27/2016 SUBJECTIVE: The patient is stable overnight. OBJECTIVE: VITAL SIGNS: Temperature 98, pulse 78, blood pressure 142/61, O2 saturation 96% on room air. NECK: Supple. No JVD or lymphadenopathy. CARDIAC: S1, S2, no added sounds or murmurs. CHEST: Diminished air entry bilaterally. ABDOMEN: Obese, soft, nontender, no guarding, no rebound. EXTREMITIES: No cyanosis, clubbing, edema. NEUROLOGIC: Generalized weakness. LABORATORY DATA: White count 7.0, hemoglobin 10, platelets of 232, potassium 3.2, BUN 14, creatinin e 0.62. INR 1.25. IMPRESSION AND PLAN: 1. Status post respiratory failure. 2. Pleural effusion, status post thoracentesis, exudative in nature. 3. History of pancolitis. 4. History of fall with pneumothorax. PLAN: 1. Continue aspiration precautions. 2. Encourage out of bed. 3. Continue surgical recommendations. 4. DVT and GI prophylaxis. Dictated By: RUBEN ADAMSON/JOSUÉ Conf#: [id number] DID#: [id number]
--- NOTE | 2016-03-27 14:21 | PN ---
Date/Time of Note Date/Time of Note DATE: 03/27/16 TIME: 14:15 Assessment/Plan VTE Prophylaxis VTE Prophylaxis Intervention: heparin Lines/Catheters IV Catheter Type (from Nrs): PICC Line Central line still needed: Yes (IV access ) Urinary Cath still in place: Yes Reason Cath still needed: other (indicate) (strict I/O ) Assessment/Plan Assessment/Plan 1. Sepsis. 2. Acute respiratory failure, intubated on ventilator, possible aspiratio pNA s /p Extubation on 03/24/16 3. Bilateral pleural effusions status post thoracentesis x 2 during this admission, last on 03/24/16 4. Severe pancolitis, patient remains on coverage with Dificid, oral vancomycin and Flagyl. 5. Left lower extremity cellulitis, resolving. 6. Status post Ann glabrata urinary tract infection. 7. Status post cervical spine injury. 8. Status post diagnostic laparoscopy on 03/01/2016. Plan: IV abx, ID following tolerated po diet but pt does not like to eat due to abominal pain, dilaudid IV prn pain, encourage po intake s/p PICC line placement Family decided for DNR, regarding Hospice care they want to wait Heparin for DVT prophylaxis Subjective 24 Hr Interval Summary Free Text/Dictation pt stable, afebrile, BP stable, tranferred to telemetry floor,c/o abdominal pain Exam/Review of Systems Vital Signs Vitals Vital Signs Date Time Temp Pulse Resp B/P Pulse Ox O2 Delivery O2 Flow Rate FiO2 03/27/16 11:58 98.0 80 19 140/60 97 03/26/16 20:00 Room Air 03/26/16 18:31 21 03/25/16 20:15 2.0 Intake and Output 03/26/16 03/26/16 03/27/16 15:00 23:00 07:00 Intake Total 450 ml 250 ml 120 ml Output Total 350 ml 350 ml 200 ml Balance 100 ml -100 ml -80 ml Exam alert, awake, no acute distress bilateral basilar rales S1 S2 RRR Soft, NT 1-2 + edema Results Result Diagram: 03/27/16 0641 03/27/16 0641 Results 24 hrs Laboratory Tests Test 03/27/16 06:41 03/27/16 06:47 Anion Gap 8 Basophils # 0.1 Basophils % 0.8 Blood Morphology Comment Blood Urea Nitrogen 14 Calcium Level 7.1 L Carbon Dioxide Level 27 Chloride Level 111 H Creatinine 0.62 Eosinophils # 0.1 Eosinophils % 1.2 Glucose Level 158 Hematocrit 30.6 L Hemoglobin 10.0 L Lymphocytes # 1.3 Lymphocytes % 18.3 Mean Corpuscular Hemoglobin 30.1 Mean Corpuscular Hemoglobin Concent 32.8 Mean Corpuscular Volume 91.9 Mean Platelet Volume 10.5 H Monocytes # 0.7 Monocytes % 9.9 Neutrophils # 4.9 Neutrophils % 69.8 Nucleated Red Blood Cells # 0.0 Nucleated Red Blood Cells % 0.0 Platelet Count 232 Potassium Level 3.2 L Red Blood Count 3.33 L Red Cell Distribution Width 18.4 H Sodium Level 143 White Blood Count 7.0 Activated Partial Thromboplast Time 35.1 H INR International Normalized Ratio 1.25 Prothrombin Time 15.8 H Prothrombin Time Ratio 1.2 Medications Medications Current Medications Lorazepam (Ativan) 0.5 mg Q6H PRN IV ANXIETY Last administered on 03/17/16 18: 50; Admin Dose 0.5 MG; Start 02/24/16 at 02:00 Ondansetron HCl (Zofran Inj) 4 mg Q6H PRN IV NAUSEA AND/OR VOMITING Last administered on 03/01/16 13:17; Admin Dose 4 MG; Start 02/24/16 at 02:00 Nitroglycerin (Nitroglycerin (Sl Tab) 0.4 Mg) 1 tab Q5M PRN SL CHEST PAIN; Start 02/24/16 at 02:00 Hydralazine HCl (Apresoline) 10 mg Q6H PRN IV SBP > 160 Last administered on 16:28; Admin Dose 10 MG; Start 02/24/16 at 02:00 Labetalol HCl (Labetalol) 10 mg Q6 PRN IV ELEVATED BLOOD PRESSURE; Start at 23:00 Guaifenesin/ Dextromethorphan (Robitussin Dm Liquid Cup) 5 ml Q6 PRN PO COUGH Last administered on 02/27/16 18:12; Admin Dose 5 ML; Start 02/24/16 at 23:00 Nicotine (Nicoderm 21 Mg/ 24hr) 1 patch DAILY TRANSDERM Last administered on 08:15; Admin Dose 1 PATCH; Start 02/26/16 at 09:00 Levothyroxine Sodium (Synthroid) 25 mcg DAILY@06 PO Last administered on 06:37; Admin Dose 25 MCG; Start 02/28/16 at 06:00 Hydromorphone HCl (Dilaudid) 0.5 mg Q3 PRN IV PAIN Last administered on 20:55; Admin Dose 0.5 MG; Start 03/02/16 at 17:00 Heparin Sodium (Porcine) (Heparin (5000 Units/0.5 ml)) 5,000 unit BID SC Last administered on 03/27/16 09:34; Admin Dose 5,000 UNIT; Start 03/02/16 at 21:30 Dicyclomine HCl (Bentyl) 10 mg BID PO Last administered on 03/26/16 20:54; Admin Dose 10 MG; Start 03/15/16 at 21:00 Metronidazole (Flagyl) 500 mg Q8 PO Last administered on 03/27/16 05:30; Admin Dose 500 MG; Start 03/16/16 at 22:00 Verapamil HCl (Verapamil) 5 mg Q6H PRN IV ELEVATED HEART RATE Last administered on 03/17/16 23:45; Admin Dose 5 MG; Start 03/17/16 at 23:30 Zolpidem Tartrate (Ambien) 5 mg HS PRN PO INSOMNIA Last administered on 21:06; Admin Dose 5 MG; Start 03/17/16 at 23:30 Metoprolol Tartrate (Lopressor) 5 mg Q4H PRN IV ELEVATED HEART RATE Last administered on 03/18/16 01:41; Admin Dose 5 MG; Start 03/18/16 at 01:30 Acetaminophen 650 mg 650 mg Q6H PRN PO PAIN AND OR ELEVATED TEMP Last administered on 03/19/16 01:18; Admin Dose 650 MG; Start 03/18/16 at 23:30 Meropenem (Merrem 500 Mg/ 100 ml (Pmx)) 100 ml @ 200 mls/hr Q12 IVPB Last administered on 03/27/16 09:32; Admin Dose 200 MLS/HR; Start 03/19/16 at 09:00 Aspirin (Aspirin) 81 mg DAILY NGT Last administered on 03/27/16 09:32; Admin Dose 81 MG; Start 03/21/16 at 09:00 Pantoprazole (Protonix Iv) 40 mg DAILY@06 IV Last administered on 03/27/16 05: 30; Admin Dose 40 MG; Start 03/21/16 at 06:00 Collagenase 1 applic 1 applic DAILY TOP Last administered on 03/25/16 10:00; Admin Dose 1 APPLIC; Start 03/21/16 at 15:00 Vancomycin HCl/ Sodium Chloride (Vancocin/NS) 150 ml @ 75 mls/hr Q36H IVPB Last administered on 03/27/16 02:26; Admin Dose 75 MLS/HR; Start 03/22/16 at 13: 00 Metoprolol Tartrate (Lopressor) 25 mg BID PO Last administered on 03/27/16 09: 33; Admin Dose 25 MG; Start 03/22/16 at 21:00 IV Flush (NS 10 ml) 10 ml PRN PRN IV IV PROTOCOL; Start 03/22/16 at 12:30 Hydralazine HCl (Apresoline) 50 mg Q8 PO Last administered on 03/27/16 05:30; Admin Dose 50 MG; Start 03/23/16 at 14:00 Citric Acid/ Sodium Citrate (Bicitra) 30 ml BID NGT Last administered on 20:54; Admin Dose 30 ML; Start 03/24/16 at 09:00 Fluconazole 100 mg 100 mg DAILY PO Last administered on 03/26/16 08:10; Admin Dose 100 MG; Start 03/25/16 at 09:00 Potassium Chloride/Dextrose/ Sod Cl (D5-1/2ns + KCl 20 Meq) 1,000 ml @ 30 mls/ hr Q24H IV Last administered on 03/27/16 02:39; Admin Dose 30 MLS/HR; Start at 10:30 HOWARD LEVY MD Mar 27, 2016 14:21
[2016-03-27] MEDS ORDERED: POTASSIUM CHLORIDE 20 MEQ in SOD CHLORIDE 0.9% 100 ML IVPB ONE (14:30)
--- NOTE | 2016-03-27 14:58 | PN ---
DATE: INFECTIOUS DISEASE PROGRESS NOTE SUBJECTIVE: No acute changes. The patient is alert, feels good, looks comfortable. Denies pain, no fevers. WBC 7, no shift, no bands. BUN 14, creatinine 0.62. MICROBIOLOGY: Cultures have been negative. ANTIMICROBIALS: The patient is on 1. Fluconazole. 2. Vancomycin and meropenem day #9. She is also getting Flagyl. INDWELLINGS: PICC line, Francois catheter. PHYSICAL EXAMINATION: GENERAL: This is a fragile, elderly woman who is alert, in no distress. HEENT: Head atraumatic, normocephalic. Sclerae anicteric. Buccal mucosa pink. NECK: Supple. CHEST: Rise symmetrical. Breath sounds diminished to bases. HEART: S1, S2. ABDOMEN: Soft, bowel tones present. EXTREMITIES: Bilateral trace edema. ASSESSMENT: 1. Resolving sepsis. 2. Resolving pneumonia. 3. Status post acute respiratory failure. 4. Left lower extremity cellulitis, resolving. 5. Pancolitis. 6. Status post fungal urinary tract infection. PLAN: The patient remains stable, overall improving. Continue present care, anti-aspiration measures, antibiotics, LLE elevation. Dictated By: PHOEBE BANDA GEAR NICKER for JUAN THOMAS/JOSUÉ Conf#: [id number] DID#: [id number]
[2016-03-27] MEDS: CITRIC ACID/NA CITRATE 30 ML CUP NGT SCH ×2 (15:12→22:06)
[2016-03-27] MEDS: COLLAGENASE 30 GM TUBE TOP SCH (15:12)
[2016-03-27] MEDS: FLUCONAZOLE 100 MG TAB PO SCH (15:13)
[2016-03-27] MEDS: NICOTINE (21 MG/24 HR) PATCH TRANSDERM SCH (15:14)
[2016-03-27] MEDS: DICYCLOMINE 10 MG CAP PO SCH ×2 (15:14→21:57)
--- NOTE | 2016-03-27 17:37 | CONS ---
Date/Time of Note Date/Time of Note DATE: 03/27/16 TIME: 17:32 Assessment/Plan Assessment/Plan Chief Complaint/Hosp Course IMPRESSION: 1. Positive troponin, assess significance in the setting of renal failure, status post code blue with respiratory arrest.-slowly downtrended 2. Cardiomyopathy with decreased left ventricular ejection fraction/CHF- systolic acute on chronic. last EF being approximately 35% by echo. 3. Abnormal electrocardiogram, assess for acute coronary syndrome. 4. Hypotension-now improved with HTN 5. Anemia. 6. Renal failure-improving 7. Hypokalemia s/p repletion 8. Hypernatremia-improved 9. Hemothorax status post VATS with decortication. 10. Status post pulmonary arrest. 11. Anemia. 12. Lower extremity edema. 14. Colitis 15. Resp failure s/p extubation Recc: -tele -serial ecg's -check repeat troponin -Increase lasix diuresis and follow volume status closely -Add metolazone to improve diuresis -Continue abx's and f/u cx data -Continue BB/hydralazine and follow BP closely Problems: Consultation Date/Type/Reason Admit Date/Time Feb 24, 2016 at 04:06 Initial Consult Date 03/20/16 Type of Consultation: Cardiology Reason for Consultation positive troponin Referring Provider: HOWARD LEVY MD Exam/Review of Systems Vital Signs Vitals Vital Signs Date Time Temp Pulse Resp B/P Pulse Ox O2 Delivery O2 Flow Rate FiO2 03/27/16 16:25 72 03/27/16 15:37 97.0 18 131/57 98 03/26/16 20:00 Room Air 03/26/16 18:31 21 03/25/16 20:15 2.0 Intake and Output 03/26/16 03/26/16 03/27/16 15:00 23:00 07:00 Intake Total 450 ml 250 ml 120 ml Output Total 350 ml 350 ml 200 ml Balance 100 ml -100 ml -80 ml Exam Review of Systems: CONSTITUTIONAL: No fevers, chills. PULMONARY: No sob CARDIOVASCULAR: No chest pain/palpitations GASTROINTESTINAL: No nausea/vomiting. GENITOURINARY: No hematuria/dysuria. MUSCULOSKELETAL: No myagias/arthalgias. PSYCHIATRIC: The patient denies depression. NEUROLOGIC: No weakness Constitutional: alert, oriented Psych: no complaints Head: normocephalic ENMT: mucosa pink and moist Neck: jvd (9 cm water), supple Respiratory: diminished breath sounds Cardiovascular: regular rate and rhythm Gastrointestinal: non-tender, soft Musculoskeletal: muscle tone (normal) Extremities: pitting pedal edema (B) Neurological: other (No focal deficits) Results Result Diagram: 03/27/16 0641 03/27/16 0641 Results 24 hrs Laboratory Tests Test 03/27/16 06:41 03/27/16 06:47 Anion Gap 8 Basophils # 0.1 Basophils % 0.8 Blood Morphology Comment Blood Urea Nitrogen 14 Calcium Level 7.1 L Carbon Dioxide Level 27 Chloride Level 111 H Creatinine 0.62 Eosinophils # 0.1 Eosinophils % 1.2 Glucose Level 158 Hematocrit 30.6 L Hemoglobin 10.0 L Lymphocytes # 1.3 Lymphocytes % 18.3 Mean Corpuscular Hemoglobin 30.1 Mean Corpuscular Hemoglobin Concent 32.8 Mean Corpuscular Volume 91.9 Mean Platelet Volume 10.5 H Monocytes # 0.7 Monocytes % 9.9 Neutrophils # 4.9 Neutrophils % 69.8 Nucleated Red Blood Cells # 0.0 Nucleated Red Blood Cells % 0.0 Platelet Count 232 Potassium Level 3.2 L Red Blood Count 3.33 L Red Cell Distribution Width 18.4 H Sodium Level 143 White Blood Count 7.0 Activated Partial Thromboplast Time 35.1 H INR International Normalized Ratio 1.25 Prothrombin Time 15.8 H Prothrombin Time Ratio 1.2 Medications Medications Current Medications Lorazepam (Ativan) 0.5 mg Q6H PRN IV ANXIETY Last administered on 03/17/16 18: 50; Admin Dose 0.5 MG; Start 02/24/16 at 02:00 Ondansetron HCl (Zofran Inj) 4 mg Q6H PRN IV NAUSEA AND/OR VOMITING Last administered on 03/01/16 13:17; Admin Dose 4 MG; Start 02/24/16 at 02:00 Nitroglycerin (Nitroglycerin (Sl Tab) 0.4 Mg) 1 tab Q5M PRN SL CHEST PAIN; Start 02/24/16 at 02:00 Hydralazine HCl (Apresoline) 10 mg Q6H PRN IV SBP > 160 Last administered on 16:28; Admin Dose 10 MG; Start 02/24/16 at 02:00 Labetalol HCl (Labetalol) 10 mg Q6 PRN IV ELEVATED BLOOD PRESSURE; Start at 23:00 Guaifenesin/ Dextromethorphan (Robitussin Dm Liquid Cup) 5 ml Q6 PRN PO COUGH Last administered on 02/27/16 18:12; Admin Dose 5 ML; Start 02/24/16 at 23:00 Nicotine (Nicoderm 21 Mg/ 24hr) 1 patch DAILY TRANSDERM Last administered on 15:14; Admin Dose 1 PATCH; Start 02/26/16 at 09:00 Levothyroxine Sodium (Synthroid) 25 mcg DAILY@06 PO Last administered on 06:37; Admin Dose 25 MCG; Start 02/28/16 at 06:00 Hydromorphone HCl (Dilaudid) 0.5 mg Q3 PRN IV PAIN Last administered on 20:55; Admin Dose 0.5 MG; Start 03/02/16 at 17:00 Heparin Sodium (Porcine) (Heparin (5000 Units/0.5 ml)) 5,000 unit BID SC Last administered on 03/27/16 09:34; Admin Dose 5,000 UNIT; Start 03/02/16 at 21:30 Dicyclomine HCl (Bentyl) 10 mg BID PO Last administered on 03/27/16 15:14; Admin Dose 10 MG; Start 03/15/16 at 21:00 Metronidazole (Flagyl) 500 mg Q8 PO Last administered on 03/27/16 15:13; Admin Dose 500 MG; Start 03/16/16 at 22:00 Verapamil HCl (Verapamil) 5 mg Q6H PRN IV ELEVATED HEART RATE Last administered on 03/17/16 23:45; Admin Dose 5 MG; Start 03/17/16 at 23:30 Zolpidem Tartrate (Ambien) 5 mg HS PRN PO INSOMNIA Last administered on 21:06; Admin Dose 5 MG; Start 03/17/16 at 23:30 Metoprolol Tartrate (Lopressor) 5 mg Q4H PRN IV ELEVATED HEART RATE Last administered on 03/18/16 01:41; Admin Dose 5 MG; Start 03/18/16 at 01:30 Acetaminophen 650 mg 650 mg Q6H PRN PO PAIN AND OR ELEVATED TEMP Last administered on 03/19/16 01:18; Admin Dose 650 MG; Start 03/18/16 at 23:30 Meropenem (Merrem 500 Mg/ 100 ml (Pmx)) 100 ml @ 200 mls/hr Q12 IVPB Last administered on 03/27/16 09:32; Admin Dose 200 MLS/HR; Start 03/19/16 at 09:00 Aspirin (Aspirin) 81 mg DAILY NGT Last administered on 03/27/16 09:32; Admin Dose 81 MG; Start 03/21/16 at 09:00 Pantoprazole (Protonix Iv) 40 mg DAILY@06 IV Last administered on 03/27/16 05: 30; Admin Dose 40 MG; Start 03/21/16 at 06:00 Collagenase 1 applic 1 applic DAILY TOP Last administered on 03/27/16 15:12; Admin Dose 1 APPLIC; Start 03/21/16 at 15:00 Vancomycin HCl/ Sodium Chloride (Vancocin/NS) 150 ml @ 75 mls/hr Q36H IVPB Last administered on 03/27/16 02:26; Admin Dose 75 MLS/HR; Start 03/22/16 at 13: 00 Metoprolol Tartrate (Lopressor) 25 mg BID PO Last administered on 03/27/16 09: 33; Admin Dose 25 MG; Start 03/22/16 at 21:00 IV Flush (NS 10 ml) 10 ml PRN PRN IV IV PROTOCOL; Start 03/22/16 at 12:30 Hydralazine HCl (Apresoline) 50 mg Q8 PO Last administered on 03/27/16 15:14; Admin Dose 50 MG; Start 03/23/16 at 14:00 Citric Acid/ Sodium Citrate (Bicitra) 30 ml BID NGT Last administered on 15:12; Admin Dose 30 ML; Start 03/24/16 at 09:00 Fluconazole 100 mg 100 mg DAILY PO Last administered on 03/27/16 15:13; Admin Dose 100 MG; Start 03/25/16 at 09:00 Potassium Chloride/Dextrose/ Sod Cl (D5-1/2ns + KCl 20 Meq) 1,000 ml @ 30 mls/ hr Q24H IV Last administered on 03/27/16 02:39; Admin Dose 30 MLS/HR; Start at 10:30 KORINA OCONNOR Mar 27, 2016 17:37
[2016-03-27] MEDS ORDERED: FUROSEMIDE 20 MG INJ IV SCH (17:43)
[2016-03-27] MEDS ORDERED: FUROSEMIDE 40 MG INJ IV SCH (18:00)
--- NOTE | 2016-03-27 18:52 | PN ---
Date/Time of Note Date/Time of Note DATE: 03/27/16 TIME: 18:52 Assessment/Plan Lines/Catheters IV Catheter Type (from [facility]): PICC Line Francois in Place (from [facility]): Yes Assessment/Plan Chief Complaint/Hosp Course 1. Abdominal pain, with CT diagnosis of pancolitis, with significant leukocytosis and bandemia. s/p Lap exploration and only small mid transverse with min mottling. Bowel function. -Antibiotics per ID -Judicious fluid management 2. Sepsis, multifactorial (pancolitis ? ischemic, urinary tract infection, pulmonary infiltrates, bacteremia). Leukocytosis ? etiology (aspiration vs other). Improved again. -Antibiotic therapy. -Judicious fluid management. -Close monitoring. 3. Renal insufficiency secondary to sepsis. -Continue judicious fluid management. -Avoid nephrotoxic agents as possible. 4. Anemia, with recent hemothorax requiring VATS decortication. -Transfuse as needed. 5. Hypoalbuminemia. -Eventual nutritional optimization. 6. Hypernatremia -Correct with fluid management. 7. Hypertension. -Nutritional and medication optimization. 8. Hypothyroidism. -Replace hormone. 9. Hemopneumothorax, status post VATS. CT removed -followed by CT surgery. 10. Cervical spine injury, being maintained in brace by neurosurgery. 11. Respiratory distress/code s/p re-intubation. ? Aspiration PNA. Extubated again. -pulmonary toilette -abx Thank you, Problems: Subjective 24 Hr Interval Summary No f/c. No nausea or vomiting. Bowel function. Min bloated. No cough. No sz. No rash. No abdominal pain. No chest pain or shortness of breath. Exam/Review of Systems Vital Signs Vitals Vital Signs Date Time Temp Pulse Resp B/P Pulse Ox O2 Delivery O2 Flow Rate FiO2 03/27/16 16:25 72 03/27/16 15:37 97.0 18 131/57 98 03/26/16 20:00 Room Air 03/26/16 18:31 21 03/25/16 20:15 2.0 Intake and Output 03/26/16 03/26/16 03/27/16 15:00 23:00 07:00 Intake Total 450 ml 250 ml 120 ml Output Total 350 ml 350 ml 200 ml Balance 100 ml -100 ml -80 ml Exam Free Text/Dictation GENERAL: NAD. Responsive HEENT: Pupils equal, reactive. No scleral icterus. Mucous membranes are somewhat dry. NECK: No crepitus. No JVD. PULMONARY: Normal respiratory effort ABDOMEN: No rebound/guarding/rigidity. Distended. EXTREMITIES: Trace edema. VASCULAR: Capillary refill is 2 seconds. NEUROLOGIC: Responsive SKIN: No rashes/jaundice. PSYCH: normal affect Results Result Diagram: 03/27/16 0641 03/27/16 0641 CHRISTIANO JENNINGS MD Mar 27, 2016 18:52
[2016-03-27] MEDS: HYDROmorphONE 1 MG/ML SYG IV PRN (19:06)
--- NOTE | 2016-03-27 19:24 | CONS ---
Date/Time of Note Date/Time of Note DATE: 03/27/16 TIME: 19:23 Assessment/Plan Assessment/Plan Additional Assessment/Plan IMPRESSION: 1. Pneumonia. 2. Pleural effusion. 3. Colitis, much better. 4. Hypokalemia. 5. Status post extubation for respiratory failure. 6. Leukocytosis, resolved. 7. Status post exploratory laparotomy. 8. Anemia. PLAN: At this point, is to continue present care. Aspiration precautions and encourage p.o. feeding. encourage po feeding Consultation Date/Type/Reason Admit Date/Time Feb 24, 2016 at 04:06 Type of Consultation: Cardiology Referring Provider: HOWARD LEVY MD 24 HR Interval Summary Constitutional: improved Exam/Review of Systems Vital Signs Vitals Vital Signs Date Time Temp Pulse Resp B/P Pulse Ox O2 Delivery O2 Flow Rate FiO2 03/27/16 16:25 72 03/27/16 15:37 97.0 18 131/57 98 03/26/16 20:00 Room Air 03/26/16 18:31 21 03/25/16 20:15 2.0 Intake and Output 03/26/16 03/26/16 03/27/16 15:00 23:00 07:00 Intake Total 450 ml 250 ml 120 ml Output Total 350 ml 350 ml 200 ml Balance 100 ml -100 ml -80 ml Exam Constitutional: alert, oriented, well developed Psych: nl mood/affect, no complaints Head: atraumatic, normocephalic Eyes: EOMI, PERRL, nl conjunctiva, nl lids, nl sclera ENMT: nl external ears & nose, nl lips & teeth, nl nasal mucosa & septum Neck: non-tender, supple Respiratory: clear to auscultation, normal air movement Cardiovascular: nl pulses, regular rate and rhythm Gastrointestinal: nl liver, spleen, non-tender, soft Musculoskeletal: nl extremities to inspection, nl gait and stance Extremities: normal pulses 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, nl mental status, nl speech, nl strength Skin: nl turgor, No rash or lesions Lymph: nl lymph nodes Results Result Diagram: 03/27/1641 03/27/1641 Results 24 hrs Laboratory Tests Test 03/27/16 06:41 03/27/16 06:47 Anion Gap 8 Basophils # 0.1 Basophils % 0.8 Blood Morphology Comment Blood Urea Nitrogen 14 Calcium Level 7.1 L Carbon Dioxide Level 27 Chloride Level 111 H Creatinine 0.62 Eosinophils # 0.1 Eosinophils % 1.2 Glucose Level 158 Hematocrit 30.6 L Hemoglobin 10.0 L Lymphocytes # 1.3 Lymphocytes % 18.3 Mean Corpuscular Hemoglobin 30.1 Mean Corpuscular Hemoglobin Concent 32.8 Mean Corpuscular Volume 91.9 Mean Platelet Volume 10.5 H Monocytes # 0.7 Monocytes % 9.9 Neutrophils # 4.9 Neutrophils % 69.8 Nucleated Red Blood Cells # 0.0 Nucleated Red Blood Cells % 0.0 Platelet Count 232 Potassium Level 3.2 L Red Blood Count 3.33 L Red Cell Distribution Width 18.4 H Sodium Level 143 White Blood Count 7.0 Activated Partial Thromboplast Time 35.1 H INR International Normalized Ratio 1.25 Prothrombin Time 15.8 H Prothrombin Time Ratio 1.2 Medications Medications Current Medications Lorazepam (Ativan) 0.5 mg Q6H PRN IV ANXIETY Last administered on 03/17/16 18: 50; Admin Dose 0.5 MG; Start 02/24/16 at 02:00 Ondansetron HCl (Zofran Inj) 4 mg Q6H PRN IV NAUSEA AND/OR VOMITING Last administered on 03/01/16 13:17; Admin Dose 4 MG; Start 02/24/16 at 02:00 Nitroglycerin (Nitroglycerin (Sl Tab) 0.4 Mg) 1 tab Q5M PRN SL CHEST PAIN; Start 02/24/16 at 02:00 Hydralazine HCl (Apresoline) 10 mg Q6H PRN IV SBP > 160 Last administered on 16:28; Admin Dose 10 MG; Start 02/24/16 at 02:00 Labetalol HCl (Labetalol) 10 mg Q6 PRN IV ELEVATED BLOOD PRESSURE; Start at 23:00 Guaifenesin/ Dextromethorphan (Robitussin Dm Liquid Cup) 5 ml Q6 PRN PO COUGH Last administered on 02/27/16 18:12; Admin Dose 5 ML; Start 02/24/16 at 23:00 Nicotine (Nicoderm 21 Mg/ 24hr) 1 patch DAILY TRANSDERM Last administered on 15:14; Admin Dose 1 PATCH; Start 02/26/16 at 09:00 Levothyroxine Sodium (Synthroid) 25 mcg DAILY@06 PO Last administered on 06:37; Admin Dose 25 MCG; Start 02/28/16 at 06:00 Hydromorphone HCl (Dilaudid) 0.5 mg Q3 PRN IV PAIN Last administered on 19:06; Admin Dose 0.5 MG; Start 03/02/16 at 17:00 Heparin Sodium (Porcine) (Heparin (5000 Units/0.5 ml)) 5,000 unit BID SC Last administered on 03/27/16 09:34; Admin Dose 5,000 UNIT; Start 03/02/16 at 21:30 Dicyclomine HCl (Bentyl) 10 mg BID PO Last administered on 03/27/16 15:14; Admin Dose 10 MG; Start 03/15/16 at 21:00 Metronidazole (Flagyl) 500 mg Q8 PO Last administered on 03/27/16 15:13; Admin Dose 500 MG; Start 03/16/16 at 22:00 Verapamil HCl (Verapamil) 5 mg Q6H PRN IV ELEVATED HEART RATE Last administered on 03/17/16 23:45; Admin Dose 5 MG; Start 03/17/16 at 23:30 Zolpidem Tartrate (Ambien) 5 mg HS PRN PO INSOMNIA Last administered on 21:06; Admin Dose 5 MG; Start 03/17/16 at 23:30 Metoprolol Tartrate (Lopressor) 5 mg Q4H PRN IV ELEVATED HEART RATE Last administered on 03/18/16 01:41; Admin Dose 5 MG; Start 03/18/16 at 01:30 Acetaminophen 650 mg 650 mg Q6H PRN PO PAIN AND OR ELEVATED TEMP Last administered on 03/19/16 01:18; Admin Dose 650 MG; Start 03/18/16 at 23:30 Meropenem (Merrem 500 Mg/ 100 ml (Pmx)) 100 ml @ 200 mls/hr Q12 IVPB Last administered on 03/27/16 09:32; Admin Dose 200 MLS/HR; Start 03/19/16 at 09:00 Aspirin (Aspirin) 81 mg DAILY NGT Last administered on 03/27/16 09:32; Admin Dose 81 MG; Start 03/21/16 at 09:00 Pantoprazole (Protonix Iv) 40 mg DAILY@06 IV Last administered on 03/27/16 05: 30; Admin Dose 40 MG; Start 03/21/16 at 06:00 Collagenase 1 applic 1 applic DAILY TOP Last administered on 03/27/16 15:12; Admin Dose 1 APPLIC; Start 03/21/16 at 15:00 Vancomycin HCl/ Sodium Chloride (Vancocin/NS) 150 ml @ 75 mls/hr Q36H IVPB Last administered on 03/27/16 02:26; Admin Dose 75 MLS/HR; Start 03/22/16 at 13: 00 Metoprolol Tartrate (Lopressor) 25 mg BID PO Last administered on 03/27/16 09: 33; Admin Dose 25 MG; Start 03/22/16 at 21:00 IV Flush (NS 10 ml) 10 ml PRN PRN IV IV PROTOCOL; Start 03/22/16 at 12:30 Hydralazine HCl (Apresoline) 50 mg Q8 PO Last administered on 03/27/16 15:14; Admin Dose 50 MG; Start 03/23/16 at 14:00 Citric Acid/ Sodium Citrate (Bicitra) 30 ml BID NGT Last administered on 15:12; Admin Dose 30 ML; Start 03/24/16 at 09:00 Fluconazole 100 mg 100 mg DAILY PO Last administered on 03/27/16 15:13; Admin Dose 100 MG; Start 03/25/16 at 09:00 Potassium Chloride/Dextrose/ Sod Cl (D5-1/2ns + KCl 20 Meq) 1,000 ml @ 30 mls/ hr Q24H IV Last administered on 03/27/16 02:39; Admin Dose 30 MLS/HR; Start at 10:30 Furosemide (Lasix) 20 mg ONCE IV Last administered on 03/27/16 17:54; Admin Dose 20 MG; Start 03/27/16 at 17:43; Stop 03/27/16 at 22:00 CHARISSA WILHELM MD Mar 27, 2016 19:24
[2016-03-27] MEDS: hydrALAzine 20 MG INJ IV PRN (20:57)
[2016-03-28] VITALS (10 sets, daily range): BP systolic 117–135; BP diastolic 56–64; PULSE 53–72; RESP 16–20
[2016-03-28] MEDS: metroNIDAZOLE 500 MG TAB PO SCH ×3 (05:54→21:27)
[2016-03-28] MEDS: PANTOPRAZOLE 40 MG INJ IV SCH (05:55)
[2016-03-28] MEDS: FUROSEMIDE 40 MG INJ IV SCH ×2 (05:55→18:15)
[2016-03-28] MEDS: LEVOTHYROXINE 25 MCG TAB PO SCH (05:55)
[2016-03-28 07:17] LABS: CK-MB 1.69 ng/ml (0.0-2.4)
[2016-03-28 07:20] LABS: TROPONIN-I 0.031 ng/ml (0.00-0.12)
--- NOTE | 2016-03-28 08:59 | CONS ---
Date/Time of Note Date/Time of Note DATE: 03/28/16 TIME: 08:57 Assessment/Plan Assessment/Plan Additional Assessment/Plan 1. Positive troponin, assess significance in the setting of renal failure, status post code blue with respiratory arrest.-slowly downtrended - No cp now, med Rx for now 2. Cardiomyopathy with decreased left ventricular ejection fraction/CHF- systolic acute on chronic. last EF being approximately 35% by echo - outpt ICD eval 3. Abnormal electrocardiogram, assess for acute coronary syndrome- no CP now 4. Hypotension-now improved with HTN- stable with therapy 5. Anemia- H/H stable - no active bleeding noted 6. Renal failure-improving slowly 7. Hypokalemia s/p repletion 8. Hypernatremia-improved 9. Hemothorax status post VATS with decortication. 10. Status post pulmonary arrest- much better now 11. Anemia. 12. Lower extremity edema. 14. Colitis 15. Resp failure s/p extubation Consultation Date/Type/Reason Admit Date/Time Feb 24, 2016 at 04:06 Type of Consultation: Cardiology Referring Provider: HOWARD LEVY MD 24 HR Interval Summary Free Text/Dictation No acute events - BP stable - no ectopy on tele ROS: No fever, no chills, no nausea, no vomiting, no diarrhea/constipation No recent weight changes No chest pain, no PND, no orthopnea No dizziness, blurred vision No thirst, no heat or cold intolerance Exam/Review of Systems Vital Signs Vitals Vital Signs Date Time Temp Pulse Resp B/P Pulse Ox O2 Delivery O2 Flow Rate FiO2 03/28/16 08:24 97.4 71 20 117/57 100 03/27/16 20:00 Nasal Cannula 2.0 03/26/16 18:31 21 Intake and Output 03/27/16 03/27/16 03/28/16 15:00 23:00 07:00 Intake Total 930 ml 120 ml Output Total 600 ml 1400 ml Balance 330 ml -1280 ml Exam General: WN/WD/NAD, AOx 1-2 HEENT: Unicetric/atraumatic/EOMI (follow commands) NECK: JVD elevated, no thyromegaly Lymph: no lymphadenopathy HEART: regular with no S3, II/ systolic murmur at apex LUNGS: Coarse sounds ABD: soft, NT, ND, +BS : Intact Neuro: non focal SKIN: chronic changes EXT: trace edema Results Result Diagram: 03/27/16 0641 03/27/16 0641 Results 24 hrs Laboratory Tests Test 03/28/16 05:30 Creatine Kinase 21 L Creatine Kinase Index 8.0 Creatinine Kinase MB (Mass) 1.69 Troponin I 0.031 Medications Medications Current Medications Lorazepam (Ativan) 0.5 mg Q6H PRN IV ANXIETY Last administered on 03/17/16 18: 50; Admin Dose 0.5 MG; Start 02/24/16 at 02:00 Ondansetron HCl (Zofran Inj) 4 mg Q6H PRN IV NAUSEA AND/OR VOMITING Last administered on 03/01/16 13:17; Admin Dose 4 MG; Start 02/24/16 at 02:00 Nitroglycerin (Nitroglycerin (Sl Tab) 0.4 Mg) 1 tab Q5M PRN SL CHEST PAIN; Start 02/24/16 at 02:00 Hydralazine HCl (Apresoline) 10 mg Q6H PRN IV SBP > 160 Last administered on 20:57; Admin Dose 10 MG; Start 02/24/16 at 02:00 Labetalol HCl (Labetalol) 10 mg Q6 PRN IV ELEVATED BLOOD PRESSURE; Start at 23:00 Guaifenesin/ Dextromethorphan (Robitussin Dm Liquid Cup) 5 ml Q6 PRN PO COUGH Last administered on 02/27/16 18:12; Admin Dose 5 ML; Start 02/24/16 at 23:00 Nicotine (Nicoderm 21 Mg/ 24hr) 1 patch DAILY TRANSDERM Last administered on 15:14; Admin Dose 1 PATCH; Start 02/26/16 at 09:00 Levothyroxine Sodium (Synthroid) 25 mcg DAILY@06 PO Last administered on 05:55; Admin Dose 25 MCG; Start 02/28/16 at 06:00 Hydromorphone HCl (Dilaudid) 0.5 mg Q3 PRN IV PAIN Last administered on 19:06; Admin Dose 0.5 MG; Start 03/02/16 at 17:00 Heparin Sodium (Porcine) (Heparin (5000 Units/0.5 ml)) 5,000 unit BID SC Last administered on 03/27/16 21:11; Admin Dose 5,000 UNIT; Start 03/02/16 at 21:30 Dicyclomine HCl (Bentyl) 10 mg BID PO Last administered on 03/27/16 21:57; Admin Dose 10 MG; Start 03/15/16 at 21:00 Metronidazole (Flagyl) 500 mg Q8 PO Last administered on 03/28/16 05:54; Admin Dose 500 MG; Start 03/16/16 at 22:00 Verapamil HCl (Verapamil) 5 mg Q6H PRN IV ELEVATED HEART RATE Last administered on 03/17/16 23:45; Admin Dose 5 MG; Start 03/17/16 at 23:30 Zolpidem Tartrate (Ambien) 5 mg HS PRN PO INSOMNIA Last administered on 21:06; Admin Dose 5 MG; Start 03/17/16 at 23:30 Metoprolol Tartrate (Lopressor) 5 mg Q4H PRN IV ELEVATED HEART RATE Last administered on 03/18/16 01:41; Admin Dose 5 MG; Start 03/18/16 at 01:30 Acetaminophen 650 mg 650 mg Q6H PRN PO PAIN AND OR ELEVATED TEMP Last administered on 03/19/16 01:18; Admin Dose 650 MG; Start 03/18/16 at 23:30 Meropenem (Merrem 500 Mg/ 100 ml (Pmx)) 100 ml @ 200 mls/hr Q12 IVPB Last administered on 03/27/16 21:58; Admin Dose 200 MLS/HR; Start 03/19/16 at 09:00 Aspirin (Aspirin) 81 mg DAILY NGT Last administered on 03/27/16 09:32; Admin Dose 81 MG; Start 03/21/16 at 09:00 Pantoprazole (Protonix Iv) 40 mg DAILY@06 IV Last administered on 03/28/16 05: 55; Admin Dose 40 MG; Start 03/21/16 at 06:00 Collagenase 1 applic 1 applic DAILY TOP Last administered on 03/27/16 15:12; Admin Dose 1 APPLIC; Start 03/21/16 at 15:00 Vancomycin HCl/ Sodium Chloride (Vancocin/NS) 150 ml @ 75 mls/hr Q36H IVPB Last administered on 03/27/16 02:26; Admin Dose 75 MLS/HR; Start 03/22/16 at 13: 00 Metoprolol Tartrate (Lopressor) 25 mg BID PO Last administered on 03/27/16 20: 58; Admin Dose 25 MG; Start 03/22/16 at 21:00 IV Flush (NS 10 ml) 10 ml PRN PRN IV IV PROTOCOL; Start 03/22/16 at 12:30 Hydralazine HCl (Apresoline) 50 mg Q8 PO Last administered on 03/28/16 05:54; Admin Dose 50 MG; Start 03/23/16 at 14:00 Citric Acid/ Sodium Citrate (Bicitra) 30 ml BID NGT Last administered on 22:06; Admin Dose 30 ML; Start 03/24/16 at 09:00 Fluconazole 100 mg 100 mg DAILY PO Last administered on 03/27/16 15:13; Admin Dose 100 MG; Start 03/25/16 at 09:00 Potassium Chloride/Dextrose/ Sod Cl (D5-1/2ns + KCl 20 Meq) 1,000 ml @ 30 mls/ hr Q24H IV Last administered on 03/27/16 02:39; Admin Dose 30 MLS/HR; Start at 10:30 GLADYS QUEZADA MD Mar 28, 2016 08:59
[2016-03-28] MEDS: CITRIC ACID/NA CITRATE 30 ML CUP NGT SCH ×2 (09:34→21:18)
[2016-03-28] MEDS: DICYCLOMINE 10 MG CAP PO SCH ×2 (09:34→21:19)
[2016-03-28] MEDS: ASPIRIN 81 MG TAB NGT SCH (09:34)
[2016-03-28] MEDS: MEROPENEM 500 MG/100 ML (PMX) 100 ML IVPB SCH ×2 (09:34→21:18)
[2016-03-28] MEDS: FLUCONAZOLE 100 MG TAB PO SCH (09:40)
[2016-03-28] MEDS: METOPROLOL 25 MG TAB PO SCH ×2 (09:40→21:19)
[2016-03-28] MEDS: NICOTINE (21 MG/24 HR) PATCH TRANSDERM SCH (09:41)
[2016-03-28] MEDS: HEPARIN 5,000 UNIT/0.5 ML SYG SC SCH ×2 (09:42→21:21)
[2016-03-28] MEDS: COLLAGENASE 30 GM TUBE TOP SCH (09:48)
[2016-03-28] MEDS: D5W-0.45 NACL + KCL 20 MEQ 1,000 ML IV SCH (09:59)
--- NOTE | 2016-03-28 12:48 | PN ---
Date/Time of Note Date/Time of Note DATE: 03/28/16 TIME: 12:46 Assessment/Plan VTE Prophylaxis VTE Prophylaxis Intervention: heparin Lines/Catheters IV Catheter Type (from Nrs): PICC Line Central line still needed: Yes (IV abx, IVF) Urinary Cath still in place: Yes Reason Cath still needed: other (indicate) (plan is to d/c cano today ) Assessment/Plan Assessment/Plan 1. Sepsis. 2. Acute respiratory failure, intubated on ventilator, possible aspiratio pNA s /p Extubation on 03/24/16 3. Bilateral pleural effusions status post thoracentesis x 2 during this admission, last on 03/24/16 4. Severe pancolitis, patient remains on coverage with Dificid, oral vancomycin and Flagyl. 5. Left lower extremity cellulitis, resolving. 6. Status post Ann glabrata urinary tract infection. 7. Status post cervical spine injury. 8. Status post diagnostic laparoscopy on 03/01/2016. Plan: IV abx, ID following toleraetd PO diet well PICC line care, d/c cano catheter Family decided for DNR, regarding Hospice care they want to wait Heparin for DVT prophylaxis start D/c planning to SNF out of bed to chair TID Subjective 24 Hr Interval Summary Free Text/Dictation pt more alert today, c/ominimal abd pain, had a BM today Exam/Review of Systems Vital Signs Vitals Vital Signs Date Time Temp Pulse Resp B/P Pulse Ox O2 Delivery O2 Flow Rate FiO2 03/28/16 12:26 57 03/28/16 11:46 97.5 20 135/61 100 03/27/16 20:00 Nasal Cannula 2.0 03/26/16 18:31 21 Intake and Output 03/27/16 03/27/16 03/28/16 15:00 23:00 07:00 Intake Total 930 ml 120 ml Output Total 600 ml 1400 ml Balance 330 ml -1280 ml Exam alert, awake, no acute distress bilateral basilar rales S1 S2 RRR Soft, NT 1-2 + edema Results Result Diagram: 03/27/16 0641 03/27/16 0641 Results 24 hrs Laboratory Tests Test 03/28/16 05:30 Creatine Kinase 21 L Creatine Kinase Index 8.0 Creatinine Kinase MB (Mass) 1.69 Troponin I 0.031 Medications Medications Current Medications Lorazepam (Ativan) 0.5 mg Q6H PRN IV ANXIETY Last administered on 03/17/16 18: 50; Admin Dose 0.5 MG; Start 02/24/16 at 02:00 Ondansetron HCl (Zofran Inj) 4 mg Q6H PRN IV NAUSEA AND/OR VOMITING Last administered on 03/01/16 13:17; Admin Dose 4 MG; Start 02/24/16 at 02:00 Nitroglycerin (Nitroglycerin (Sl Tab) 0.4 Mg) 1 tab Q5M PRN SL CHEST PAIN; Start 02/24/16 at 02:00 Hydralazine HCl (Apresoline) 10 mg Q6H PRN IV SBP > 160 Last administered on 20:57; Admin Dose 10 MG; Start 02/24/16 at 02:00 Labetalol HCl (Labetalol) 10 mg Q6 PRN IV ELEVATED BLOOD PRESSURE; Start at 23:00 Guaifenesin/ Dextromethorphan (Robitussin Dm Liquid Cup) 5 ml Q6 PRN PO COUGH Last administered on 02/27/16 18:12; Admin Dose 5 ML; Start 02/24/16 at 23:00 Nicotine (Nicoderm 21 Mg/ 24hr) 1 patch DAILY TRANSDERM Last administered on 09:41; Admin Dose 1 PATCH; Start 02/26/16 at 09:00 Levothyroxine Sodium (Synthroid) 25 mcg DAILY@06 PO Last administered on 05:55; Admin Dose 25 MCG; Start 02/28/16 at 06:00 Hydromorphone HCl (Dilaudid) 0.5 mg Q3 PRN IV PAIN Last administered on 19:06; Admin Dose 0.5 MG; Start 03/02/16 at 17:00 Heparin Sodium (Porcine) (Heparin (5000 Units/0.5 ml)) 5,000 unit BID SC Last administered on 03/28/16 09:42; Admin Dose 5,000 UNIT; Start 03/02/16 at 21:30 Dicyclomine HCl (Bentyl) 10 mg BID PO Last administered on 03/28/16 09:34; Admin Dose 10 MG; Start 03/15/16 at 21:00 Metronidazole (Flagyl) 500 mg Q8 PO Last administered on 03/28/16 05:54; Admin Dose 500 MG; Start 03/16/16 at 22:00 Verapamil HCl (Verapamil) 5 mg Q6H PRN IV ELEVATED HEART RATE Last administered on 03/17/16 23:45; Admin Dose 5 MG; Start 03/17/16 at 23:30 Zolpidem Tartrate (Ambien) 5 mg HS PRN PO INSOMNIA Last administered on 21:06; Admin Dose 5 MG; Start 03/17/16 at 23:30 Metoprolol Tartrate (Lopressor) 5 mg Q4H PRN IV ELEVATED HEART RATE Last administered on 03/18/16 01:41; Admin Dose 5 MG; Start 03/18/16 at 01:30 Acetaminophen 650 mg 650 mg Q6H PRN PO PAIN AND OR ELEVATED TEMP Last administered on 03/19/16 01:18; Admin Dose 650 MG; Start 03/18/16 at 23:30 Meropenem (Merrem 500 Mg/ 100 ml (Pmx)) 100 ml @ 200 mls/hr Q12 IVPB Last administered on 03/28/16 09:34; Admin Dose 200 MLS/HR; Start 03/19/16 at 09:00 Aspirin (Aspirin) 81 mg DAILY NGT Last administered on 03/28/16 09:34; Admin Dose 81 MG; Start 03/21/16 at 09:00 Pantoprazole (Protonix Iv) 40 mg DAILY@06 IV Last administered on 03/28/16 05: 55; Admin Dose 40 MG; Start 03/21/16 at 06:00 Collagenase 1 applic 1 applic DAILY TOP Last administered on 03/28/16 09:48; Admin Dose 1 APPLIC; Start 03/21/16 at 15:00 Vancomycin HCl/ Sodium Chloride (Vancocin/NS) 150 ml @ 75 mls/hr Q36H IVPB Last administered on 03/27/16 02:26; Admin Dose 75 MLS/HR; Start 03/22/16 at 13: 00 Metoprolol Tartrate (Lopressor) 25 mg BID PO Last administered on 03/28/16 09: 40; Admin Dose 25 MG; Start 03/22/16 at 21:00 IV Flush (NS 10 ml) 10 ml PRN PRN IV IV PROTOCOL; Start 03/22/16 at 12:30 Hydralazine HCl (Apresoline) 50 mg Q8 PO Last administered on 03/28/16 05:54; Admin Dose 50 MG; Start 03/23/16 at 14:00 Citric Acid/ Sodium Citrate (Bicitra) 30 ml BID NGT Last administered on 09:34; Admin Dose 30 ML; Start 03/24/16 at 09:00 Fluconazole 100 mg 100 mg DAILY PO Last administered on 03/28/16 09:40; Admin Dose 100 MG; Start 03/25/16 at 09:00 Potassium Chloride/Dextrose/ Sod Cl (D5-1/2ns + KCl 20 Meq) 1,000 ml @ 30 mls/ hr Q24H IV Last administered on 03/28/16 09:59; Admin Dose 30 MLS/HR; Start at 10:30 HOWARD LEVY MD Mar 28, 2016 12:48
--- NOTE | 2016-03-28 12:52 | CONS ---
Date/Time of Note Date/Time of Note DATE: 03/28/16 TIME: 12:51 Assessment/Plan Assessment/Plan Chief Complaint/Hosp Course SUBJECTIVE: No acute changes. The patient is sleeping, looks comfortable. No fevers/n/v/d per report. ANTIMICROBIALS: The patient is on 1. Fluconazole. 2. Vancomycin and meropenem day #10. S 3. Flagyl. INDWELLINGS: PICC line, Francois catheter. PHYSICAL EXAMINATION: GENERAL: This is a fragile, elderly woman who is in no distress. HEENT: Head atraumatic, normocephalic. Sclerae anicteric. Buccal mucosa pink. NECK: Supple. CHEST: Rise symmetrical. Breath sounds diminished to bases. HEART: S1, S2. ABDOMEN: Soft, bowel tones present. EXTREMITIES: Bilateral trace edema. ASSESSMENT: 1. Resolving sepsis. 2. Resolving pneumonia. 3. Status post acute respiratory failure. 4. Left lower extremity cellulitis, resolving. 5. Pancolitis. 6. Status post fungal urinary tract infection. PLAN: The patient remains stable, overall improving. Continue present care, anti-aspiration measures, complete antibiotics, LLE elevation. DW staff Problems: Consultation Date/Type/Reason Admit Date/Time Feb 24, 2016 at 04:06 Type of Consultation: ID Referring Provider: HOWARD LEVY MD Exam/Review of Systems Vital Signs Vitals Vital Signs Date Time Temp Pulse Resp B/P Pulse Ox O2 Delivery O2 Flow Rate FiO2 03/28/16 12:26 57 03/28/16 11:46 97.5 20 135/61 100 03/27/16 20:00 Nasal Cannula 2.0 03/26/16 18:31 21 Intake and Output 03/27/16 03/27/16 03/28/16 15:00 23:00 07:00 Intake Total 930 ml 120 ml Output Total 600 ml 1400 ml Balance 330 ml -1280 ml Results Result Diagram: 03/27/16 0641 03/27/16 0641 Results 24 hrs Laboratory Tests Test 03/28/16 05:30 Creatine Kinase 21 L Creatine Kinase Index 8.0 Creatinine Kinase MB (Mass) 1.69 Troponin I 0.031 Medications Medications Current Medications Lorazepam (Ativan) 0.5 mg Q6H PRN IV ANXIETY Last administered on 03/17/16 18: 50; Admin Dose 0.5 MG; Start 02/24/16 at 02:00 Ondansetron HCl (Zofran Inj) 4 mg Q6H PRN IV NAUSEA AND/OR VOMITING Last administered on 03/01/16 13:17; Admin Dose 4 MG; Start 02/24/16 at 02:00 Nitroglycerin (Nitroglycerin (Sl Tab) 0.4 Mg) 1 tab Q5M PRN SL CHEST PAIN; Start 02/24/16 at 02:00 Hydralazine HCl (Apresoline) 10 mg Q6H PRN IV SBP > 160 Last administered on 20:57; Admin Dose 10 MG; Start 02/24/16 at 02:00 Labetalol HCl (Labetalol) 10 mg Q6 PRN IV ELEVATED BLOOD PRESSURE; Start at 23:00 Guaifenesin/ Dextromethorphan (Robitussin Dm Liquid Cup) 5 ml Q6 PRN PO COUGH Last administered on 02/27/16 18:12; Admin Dose 5 ML; Start 02/24/16 at 23:00 Nicotine (Nicoderm 21 Mg/ 24hr) 1 patch DAILY TRANSDERM Last administered on 09:41; Admin Dose 1 PATCH; Start 02/26/16 at 09:00 Levothyroxine Sodium (Synthroid) 25 mcg DAILY@06 PO Last administered on 05:55; Admin Dose 25 MCG; Start 02/28/16 at 06:00 Hydromorphone HCl (Dilaudid) 0.5 mg Q3 PRN IV PAIN Last administered on 19:06; Admin Dose 0.5 MG; Start 03/02/16 at 17:00 Heparin Sodium (Porcine) (Heparin (5000 Units/0.5 ml)) 5,000 unit BID SC Last administered on 03/28/16 09:42; Admin Dose 5,000 UNIT; Start 03/02/16 at 21:30 Dicyclomine HCl (Bentyl) 10 mg BID PO Last administered on 03/28/16 09:34; Admin Dose 10 MG; Start 03/15/16 at 21:00 Metronidazole (Flagyl) 500 mg Q8 PO Last administered on 03/28/16 05:54; Admin Dose 500 MG; Start 03/16/16 at 22:00 Verapamil HCl (Verapamil) 5 mg Q6H PRN IV ELEVATED HEART RATE Last administered on 03/17/16 23:45; Admin Dose 5 MG; Start 03/17/16 at 23:30 Zolpidem Tartrate (Ambien) 5 mg HS PRN PO INSOMNIA Last administered on 21:06; Admin Dose 5 MG; Start 03/17/16 at 23:30 Metoprolol Tartrate (Lopressor) 5 mg Q4H PRN IV ELEVATED HEART RATE Last administered on 03/18/16 01:41; Admin Dose 5 MG; Start 03/18/16 at 01:30 Acetaminophen 650 mg 650 mg Q6H PRN PO PAIN AND OR ELEVATED TEMP Last administered on 03/19/16 01:18; Admin Dose 650 MG; Start 03/18/16 at 23:30 Meropenem (Merrem 500 Mg/ 100 ml (Pmx)) 100 ml @ 200 mls/hr Q12 IVPB Last administered on 03/28/16 09:34; Admin Dose 200 MLS/HR; Start 03/19/16 at 09:00 Aspirin (Aspirin) 81 mg DAILY NGT Last administered on 03/28/16 09:34; Admin Dose 81 MG; Start 03/21/16 at 09:00 Pantoprazole (Protonix Iv) 40 mg DAILY@06 IV Last administered on 03/28/16 05: 55; Admin Dose 40 MG; Start 03/21/16 at 06:00 Collagenase 1 applic 1 applic DAILY TOP Last administered on 03/28/16 09:48; Admin Dose 1 APPLIC; Start 03/21/16 at 15:00 Vancomycin HCl/ Sodium Chloride (Vancocin/NS) 150 ml @ 75 mls/hr Q36H IVPB Last administered on 03/27/16 02:26; Admin Dose 75 MLS/HR; Start 03/22/16 at 13: 00 Metoprolol Tartrate (Lopressor) 25 mg BID PO Last administered on 03/28/16 09: 40; Admin Dose 25 MG; Start 03/22/16 at 21:00 IV Flush (NS 10 ml) 10 ml PRN PRN IV IV PROTOCOL; Start 03/22/16 at 12:30 Hydralazine HCl (Apresoline) 50 mg Q8 PO Last administered on 03/28/16 05:54; Admin Dose 50 MG; Start 03/23/16 at 14:00 Citric Acid/ Sodium Citrate (Bicitra) 30 ml BID NGT Last administered on 09:34; Admin Dose 30 ML; Start 03/24/16 at 09:00 Fluconazole 100 mg 100 mg DAILY PO Last administered on 03/28/16 09:40; Admin Dose 100 MG; Start 03/25/16 at 09:00 Potassium Chloride/Dextrose/ Sod Cl (D5-1/2ns + KCl 20 Meq) 1,000 ml @ 30 mls/ hr Q24H IV Last administered on 03/28/16 09:59; Admin Dose 30 MLS/HR; Start at 10:30 PHOEBE BANDA NP Mar 28, 2016 12:52
[2016-03-28] MEDS: VANCOMYCIN 750 MG in SOD CHLORIDE 0.9% 150 ML IVPB SCH (13:34)
[2016-03-28] MEDS ORDERED: POTASSIUM CHLORIDE 20 MEQ in SOD CHLORIDE 0.9% 100 ML IVPB ONE (14:00)
--- NOTE | 2016-03-28 15:13 | PN ---
DATE: 03/28/2016 REASON FOR FOLLOWUP: Respiratory distress. The patient has been stable this morning. VITAL SIGNS: Temperature 98, pulse is 57, blood pressure 135/60, O2 saturation 96% on room air. Dr y mucous membranes. HEENT: Pupils equal, round, and reactive to light. CARDIAC: S1, S2, no added sounds or murmurs. CHEST: Diminished air entry bilaterally. ABDOMEN: Soft, nontender. No guarding or rebound. EXTREMITIES: No cyanosis, clubbing, edema. NEUROLOGIC: Generalized weakness. LABORATORY DATA: White count 7, hemoglobin 10, platelets 232. Chemistry is pending at time of this dictation. IMPRESSION AND PLAN: 1. Resolving pneumonia. 2. Status post hypoxemic respiratory failure. 3. History of pancolitis. RECOMMENDATIONS: 1. Antibiotics per infectious disease. Consider de-escalation soon. 2. Physical therapy. 3. Consider detention facility and discharge planning. Dictated By: RUBEN ADAMSON/JOSUÉ Conf#: [id number] DID#: [id number]
--- NOTE | 2016-03-28 20:32 | PN ---
Date/Time of Note Date/Time of Note DATE: 03/28/16 TIME: 20:32 Assessment/Plan Lines/Catheters IV Catheter Type (from [facility]): PICC Line Francois in Place (from [facility]): Yes Assessment/Plan Chief Complaint/Hosp Course 1. Abdominal pain, with CT diagnosis of pancolitis, with significant leukocytosis and bandemia. s/p Lap exploration and only small mid transverse with min mottling. Bowel function. -Antibiotics per ID -Judicious fluid management 2. Sepsis, multifactorial (pancolitis ? ischemic, urinary tract infection, pulmonary infiltrates, bacteremia). Leukocytosis ? etiology (aspiration vs other). Improved again. -Antibiotic therapy. -Judicious fluid management. -Close monitoring. 3. Renal insufficiency secondary to sepsis. -Continue judicious fluid management. -Avoid nephrotoxic agents as possible. 4. Anemia, with recent hemothorax requiring VATS decortication. -Transfuse as needed. 5. Hypoalbuminemia. -Eventual nutritional optimization. 6. Hypernatremia -Correct with fluid management. 7. Hypertension. -Nutritional and medication optimization. 8. Hypothyroidism. -Replace hormone. 9. Hemopneumothorax, status post VATS. CT removed -followed by CT surgery. 10. Cervical spine injury, being maintained in brace by neurosurgery. 11. Respiratory distress/code s/p re-intubation. ? Aspiration PNA. Extubated again. -pulmonary toilette -abx Thank you, Problems: Subjective 24 Hr Interval Summary No f/c. No nausea or vomiting. Bowel function. Min bloated. No cough. No sz. No rash. No abdominal pain. No chest pain or shortness of breath. Exam/Review of Systems Vital Signs Vitals Vital Signs Date Time Temp Pulse Resp B/P Pulse Ox O2 Delivery O2 Flow Rate FiO2 03/28/16 16:31 53 03/28/16 15:59 97.5 20 129/56 99 03/28/16 08:30 Nasal Cannula 2.0 03/26/16 18:31 21 Intake and Output 03/27/16 03/27/16 03/28/16 15:00 23:00 07:00 Intake Total 930 ml 120 ml Output Total 600 ml 1400 ml Balance 330 ml -1280 ml Exam Free Text/Dictation GENERAL: NAD. Responsive HEENT: Pupils equal, reactive. No scleral icterus. Mucous membranes are somewhat dry. NECK: No crepitus. No JVD. PULMONARY: Normal respiratory effort ABDOMEN: No rebound/guarding/rigidity. Distended. EXTREMITIES: Trace edema. VASCULAR: Capillary refill is 2 seconds. NEUROLOGIC: Responsive SKIN: No rashes/jaundice. PSYCH: normal affect Results Result Diagram: 03/27/16 0641 03/27/16 0641 CHRISTIANO JENNINGS MD Mar 28, 2016 20:32
[2016-03-29] VITALS (11 sets, daily range): BP systolic 110–155; BP diastolic 53–65; PULSE 45–70; RESP 18–20
[2016-03-29] MEDS: FUROSEMIDE 40 MG INJ IV SCH (05:29)
[2016-03-29] MEDS: metroNIDAZOLE 500 MG TAB PO SCH ×3 (05:29→22:25)
[2016-03-29] MEDS: PANTOPRAZOLE 40 MG INJ IV SCH (05:29)
[2016-03-29] MEDS: LEVOTHYROXINE 25 MCG TAB PO SCH (05:29)
[2016-03-29 07:38] LABS: INR 1.26; PROTIME 15.9 Sec (12.2-14.2); PT RATIO 1.2
[2016-03-29 07:40] LABS: PARTIAL THROMBOPLASTIN TIME 34.8 Sec (25.0-35.0)
[2016-03-29 07:47] LABS: CALCIUM 6.8 mg/dl (8.4-10.2); CREATININE 0.57 mg/dl (0.44-1.00); POTASSIUM 2.1 mmol/L (3.5-5.1)
[2016-03-29] MEDS: DICYCLOMINE 10 MG CAP PO SCH ×2 (08:49→21:02)
[2016-03-29] MEDS: CITRIC ACID/NA CITRATE 30 ML CUP NGT SCH (08:49)
[2016-03-29] MEDS: POTASSIUM CHLORIDE 20 MEQ POWDER FOR ORAL SOLN PO SCH ×2 (08:49→10:09)
[2016-03-29] MEDS: MEROPENEM 500 MG/100 ML (PMX) 100 ML IVPB SCH ×2 (08:49→21:15)
[2016-03-29] MEDS: ASPIRIN 81 MG TAB NGT SCH (08:49)
[2016-03-29] MEDS: NICOTINE (21 MG/24 HR) PATCH TRANSDERM SCH (08:50)
[2016-03-29] MEDS: METOPROLOL 25 MG TAB PO SCH ×2 (08:50→21:02)
[2016-03-29] MEDS: FLUCONAZOLE 100 MG TAB PO SCH (08:51)
[2016-03-29] MEDS: COLLAGENASE 30 GM TUBE TOP SCH ×2 (09:00→19:08)
[2016-03-29] MEDS: HEPARIN 5,000 UNIT/0.5 ML SYG SC SCH ×2 (09:09→21:03)
--- NOTE | 2016-03-29 11:27 | PN ---
DATE: 03/29/2016 SUBJECTIVE: From pulmonary standpoint, the patient remains stable. No new events, comfortable this morning. PHYSICAL EXAMINATION: VITAL SIGNS: Temperature 98, pulse is 48, blood pressure 125/60, O2 saturation 96% on room air. HEENT: Dry mucous membranes. Pupils equal and reactive to light. CARDIAC: S1, S2, no added sounds or murmurs. CHEST: Diminished air entry at both lung bases. ABDOMEN: Soft, nontender. No guarding or rebound. EXTREMITIES: No cyanosis, clubbing, edema. NEUROLOGIC: Generalized weakness. LABORATORY DATA: Potassium 2.1 today. INR 1.26. IMPRESSION AND PLAN: 1. Resolving pneumonia. 2. Improved hypoxemic respiratory failure. 3. History of pancolitis. 4. Hypokalemia. PLAN: 1. Replace potassium. 2. Aspiration precautions. 3. Surgical recommendations regarding colitis, consider de-escalation of antibiotics. 4. Consider discharge planning to halfway facility. Dictated By: RUBEN ADAMSON/JOSUÉ Conf#: [id number] DID#: [id number]
--- NOTE | 2016-03-29 11:48 | PN ---
Date/Time of Note Date/Time of Note DATE: 03/29/16 TIME: 11:35 Assessment/Plan VTE Prophylaxis VTE Prophylaxis Intervention: heparin Lines/Catheters IV Catheter Type (from Nrs): PICC Line Central line still needed: Yes (IV access ) Urinary Cath still in place: Yes Reason Cath still needed: other (indicate) (plan is to d/c today ) Assessment/Plan Assessment/Plan 1. Sepsis. 2. Acute respiratory failure, intubated on ventilator, possible aspiratio pNA s /p Extubation on 03/24/16 3. Bilateral pleural effusions status post thoracentesis x 2 during this admission, last on 03/24/16 4. Severe pancolitis, patient remains on coverage with Dificid, oral vancomycin and Flagyl. 5. Left lower extremity cellulitis, resolving. 6. Status post Ann glabrata urinary tract infection. 7. Status post cervical spine injury. 8. Status post diagnostic laparoscopy on 03/01/2016. Plan: IV abx, ID following tolerated PO diet well K and magnesium replacement PICC line care, d/francisco cano catheter CXR done results pending Family decided for DNR, regarding Hospice care they want to wait Heparin for DVT prophylaxis out of bed to chair TID Subjective 24 Hr Interval Summary Free Text/Dictation pt sitting in chair, more tachypneic, BP stable, afebrile Exam/Review of Systems Vital Signs Vitals Vital Signs Date Time Temp Pulse Resp B/P Pulse Ox O2 Delivery O2 Flow Rate FiO2 03/29/16 08:16 48 03/29/16 07:43 97.6 20 125/60 100 03/29/16 00:00 Nasal Cannula 2.0 03/26/16 18:31 21 Intake and Output 03/28/16 03/28/16 03/29/16 15:00 23:00 07:00 Intake Total 720 ml 500 ml Output Total 850 ml 1000 ml Balance -130 ml -500 ml Exam alert, awake, no acute distress bilateral basilar rales S1 S2 RRR Soft, NT 1-2 + edema Results Result Diagram: 03/27/16 0641 03/29/16 0614 Results 24 hrs Laboratory Tests Test 03/29/16 06:14 Activated Partial Thromboplast Time 34.8 Anion Gap 9 Blood Urea Nitrogen 11 Calcium Level 6.8 L Carbon Dioxide Level 27 Chloride Level 104 Creatinine 0.57 Glucose Level 79 # INR International Normalized Ratio 1.26 Magnesium Level 1.3 L Potassium Level 2.1 *L Prothrombin Time 15.9 H Prothrombin Time Ratio 1.2 Sodium Level 138 Medications Medications Current Medications Lorazepam (Ativan) 0.5 mg Q6H PRN IV ANXIETY Last administered on 03/17/16 18: 50; Admin Dose 0.5 MG; Start 02/24/16 at 02:00 Ondansetron HCl (Zofran Inj) 4 mg Q6H PRN IV NAUSEA AND/OR VOMITING Last administered on 03/01/16 13:17; Admin Dose 4 MG; Start 02/24/16 at 02:00 Nitroglycerin (Nitroglycerin (Sl Tab) 0.4 Mg) 1 tab Q5M PRN SL CHEST PAIN; Start 02/24/16 at 02:00 Hydralazine HCl (Apresoline) 10 mg Q6H PRN IV SBP > 160 Last administered on 20:57; Admin Dose 10 MG; Start 02/24/16 at 02:00 Labetalol HCl (Labetalol) 10 mg Q6 PRN IV ELEVATED BLOOD PRESSURE; Start at 23:00 Guaifenesin/ Dextromethorphan (Robitussin Dm Liquid Cup) 5 ml Q6 PRN PO COUGH Last administered on 02/27/16 18:12; Admin Dose 5 ML; Start 02/24/16 at 23:00 Nicotine (Nicoderm 21 Mg/ 24hr) 1 patch DAILY TRANSDERM Last administered on 08:50; Admin Dose 1 PATCH; Start 02/26/16 at 09:00 Levothyroxine Sodium (Synthroid) 25 mcg DAILY@06 PO Last administered on 05:29; Admin Dose 25 MCG; Start 02/28/16 at 06:00 Hydromorphone HCl (Dilaudid) 0.5 mg Q3 PRN IV PAIN Last administered on 19:06; Admin Dose 0.5 MG; Start 03/02/16 at 17:00 Heparin Sodium (Porcine) (Heparin (5000 Units/0.5 ml)) 5,000 unit BID SC Last administered on 03/29/16 09:09; Admin Dose 5,000 UNIT; Start 03/02/16 at 21:30 Dicyclomine HCl (Bentyl) 10 mg BID PO Last administered on 03/29/16 08:49; Admin Dose 10 MG; Start 03/15/16 at 21:00 Metronidazole (Flagyl) 500 mg Q8 PO Last administered on 03/29/16 05:29; Admin Dose 500 MG; Start 03/16/16 at 22:00 Verapamil HCl (Verapamil) 5 mg Q6H PRN IV ELEVATED HEART RATE Last administered on 03/17/16 23:45; Admin Dose 5 MG; Start 03/17/16 at 23:30 Zolpidem Tartrate (Ambien) 5 mg HS PRN PO INSOMNIA Last administered on 21:06; Admin Dose 5 MG; Start 03/17/16 at 23:30 Metoprolol Tartrate (Lopressor) 5 mg Q4H PRN IV ELEVATED HEART RATE Last administered on 03/18/16 01:41; Admin Dose 5 MG; Start 03/18/16 at 01:30 Acetaminophen 650 mg 650 mg Q6H PRN PO PAIN AND OR ELEVATED TEMP Last administered on 03/19/16 01:18; Admin Dose 650 MG; Start 03/18/16 at 23:30 Meropenem (Merrem 500 Mg/ 100 ml (Pmx)) 100 ml @ 200 mls/hr Q12 IVPB Last administered on 03/29/16 08:49; Admin Dose 200 MLS/HR; Start 03/19/16 at 09:00 Aspirin (Aspirin) 81 mg DAILY NGT Last administered on 03/29/16 08:49; Admin Dose 81 MG; Start 03/21/16 at 09:00 Pantoprazole (Protonix Iv) 40 mg DAILY@06 IV Last administered on 03/29/16 05: 29; Admin Dose 40 MG; Start 03/21/16 at 06:00 Collagenase 1 applic 1 applic DAILY TOP Last administered on 03/28/16 09:48; Admin Dose 1 APPLIC; Start 03/21/16 at 15:00 Vancomycin HCl/ Sodium Chloride (Vancocin/NS) 150 ml @ 75 mls/hr Q36H IVPB Last administered on 03/28/16 13:34; Admin Dose 75 MLS/HR; Start 03/22/16 at 13: 00 Metoprolol Tartrate (Lopressor) 25 mg BID PO Last administered on 03/29/16 08: 50; Admin Dose 25 MG; Start 03/22/16 at 21:00 IV Flush (NS 10 ml) 10 ml PRN PRN IV IV PROTOCOL; Start 03/22/16 at 12:30 Hydralazine HCl (Apresoline) 50 mg Q8 PO Last administered on 03/29/16 05:29; Admin Dose 50 MG; Start 03/23/16 at 14:00 Citric Acid/ Sodium Citrate (Bicitra) 30 ml BID NGT Last administered on 08:49; Admin Dose 30 ML; Start 03/24/16 at 09:00 Fluconazole (Diflucan) 100 mg DAILY PO Last administered on 03/29/16 08:51; Admin Dose 100 MG; Start 03/25/16 at 09:00 HOWARD LEVY MD Mar 29, 2016 11:46
[2016-03-29] MEDS ORDERED: MAGNESIUM SULFATE 3 GM in SOD CHLORIDE 0.9% 100 ML IVPB ONE (12:00)
[2016-03-29] MEDS ORDERED: POTASSIUM CHLORIDE 20 MEQ in SOD CHLORIDE 0.9% 100 ML IVPB ONE ×2 (12:00→21:00)
--- NOTE | 2016-03-29 12:06 | RADRPT ---
PROCEDURE: XR Chest. CLINICAL INDICATION: Shortness of breath. TECHNIQUE: Single frontal view. COMPARISON: 03/25/2016. FINDINGS: There is a left arm PICC line with the tip in the lower superior vena cava. There is air space and interstitial disease bilaterally consistent with pulmonary edema. Right is w orse than left. The right pleural effusion is larger than seen previously. There is a small left p leural effusion, unchanged. The heart is mildly enlarged. There is calcification in the aorta consistent with atherosclerosis. There is no pneumothorax. IMPRESSION: 1. Worse appearance of the lungs and larger right pleural effusion. 2. No other change from 03/25/2016. RPTAT: QQ .Carter Field MD, MD Date Time Electronically viewed and signed by .Carter Field MD, MD on 03/29/2016 12:05 .R/
--- NOTE | 2016-03-29 13:19 | CONS ---
Date/Time of Note Date/Time of Note DATE: 03/29/16 TIME: 13:15 Assessment/Plan Assessment/Plan Chief Complaint/Hosp Course SUBJECTIVE: No acute changes. The patient is alert, sitting up in a chair, looks comfortable. No fevers/n/v/d per report. ANTIMICROBIALS: The patient is on 1. Fluconazole. 2. Vancomycin and meropenem day 3. Flagyl. INDWELLINGS: PICC line, Francois catheter. PHYSICAL EXAMINATION: GENERAL: This is a fragile, elderly woman who is in no distress. HEENT: Head atraumatic, normocephalic. Sclerae anicteric. Buccal mucosa pink. NECK: Supple. CHEST: Rise symmetrical. Breath sounds diminished to bases. HEART: S1, S2. ABDOMEN: Distended, bowel tones present. EXTREMITIES: Bilateral LE edema. + anasarca ASSESSMENT: 1. Resolving sepsis. 2. Resolving pneumonia. 3. Status post acute respiratory failure. 4. Left lower extremity cellulitis, resolving. 5. Pancolitis. 6. Status post fungal urinary tract infection. 7. Large pleural effusion, s/p thoracentesis 03/18, 03/24 8. Distended abdomen PLAN: The patient remains stable. Continue present care, anti-aspiration measures, complete antibiotics for couple more days, will order abdominal US to r/o ascites, may need repeat thoracentesis==> will defer to pulmonary team. DW staff Problems: Consultation Date/Type/Reason Admit Date/Time Feb 24, 2016 at 04:06 Type of Consultation: ID Referring Provider: HOWARD LEVY MD Exam/Review of Systems Vital Signs Vitals Vital Signs Date Time Temp Pulse Resp B/P Pulse Ox O2 Delivery O2 Flow Rate FiO2 03/29/16 12:12 54 03/29/16 11:38 97.3 20 113/53 95 03/29/16 08:00 Nasal Cannula 03/29/16 00:00 2.0 03/26/16 18:31 21 Intake and Output 03/28/16 03/28/16 03/29/16 15:00 23:00 07:00 Intake Total 720 ml 500 ml Output Total 850 ml 1000 ml Balance -130 ml -500 ml Results Result Diagram: 03/27/16 0641 03/29/16 0614 Results 24 hrs Laboratory Tests Test 03/29/16 06:14 Activated Partial Thromboplast Time 34.8 Anion Gap 9 Blood Urea Nitrogen 11 Calcium Level 6.8 L Carbon Dioxide Level 27 Chloride Level 104 Creatinine 0.57 Glucose Level 79 # INR International Normalized Ratio 1.26 Magnesium Level 1.3 L Potassium Level 2.1 *L Prothrombin Time 15.9 H Prothrombin Time Ratio 1.2 Sodium Level 138 Medications Medications Current Medications Lorazepam (Ativan) 0.5 mg Q6H PRN IV ANXIETY Last administered on 03/17/16 18: 50; Admin Dose 0.5 MG; Start 02/24/16 at 02:00 Ondansetron HCl (Zofran Inj) 4 mg Q6H PRN IV NAUSEA AND/OR VOMITING Last administered on 03/01/16 13:17; Admin Dose 4 MG; Start 02/24/16 at 02:00 Nitroglycerin (Nitroglycerin (Sl Tab) 0.4 Mg) 1 tab Q5M PRN SL CHEST PAIN; Start 02/24/16 at 02:00 Hydralazine HCl (Apresoline) 10 mg Q6H PRN IV SBP > 160 Last administered on 20:57; Admin Dose 10 MG; Start 02/24/16 at 02:00 Labetalol HCl (Labetalol) 10 mg Q6 PRN IV ELEVATED BLOOD PRESSURE; Start at 23:00 Guaifenesin/ Dextromethorphan (Robitussin Dm Liquid Cup) 5 ml Q6 PRN PO COUGH Last administered on 02/27/16 18:12; Admin Dose 5 ML; Start 02/24/16 at 23:00 Nicotine (Nicoderm 21 Mg/ 24hr) 1 patch DAILY TRANSDERM Last administered on 08:50; Admin Dose 1 PATCH; Start 02/26/16 at 09:00 Levothyroxine Sodium (Synthroid) 25 mcg DAILY@06 PO Last administered on 05:29; Admin Dose 25 MCG; Start 02/28/16 at 06:00 Hydromorphone HCl (Dilaudid) 0.5 mg Q3 PRN IV PAIN Last administered on 19:06; Admin Dose 0.5 MG; Start 03/02/16 at 17:00 Heparin Sodium (Porcine) (Heparin (5000 Units/0.5 ml)) 5,000 unit BID SC Last administered on 03/29/16 09:09; Admin Dose 5,000 UNIT; Start 03/02/16 at 21:30 Dicyclomine HCl (Bentyl) 10 mg BID PO Last administered on 03/29/16 08:49; Admin Dose 10 MG; Start 03/15/16 at 21:00 Metronidazole (Flagyl) 500 mg Q8 PO Last administered on 03/29/16 05:29; Admin Dose 500 MG; Start 03/16/16 at 22:00 Verapamil HCl (Verapamil) 5 mg Q6H PRN IV ELEVATED HEART RATE Last administered on 03/17/16 23:45; Admin Dose 5 MG; Start 03/17/16 at 23:30 Zolpidem Tartrate (Ambien) 5 mg HS PRN PO INSOMNIA Last administered on 21:06; Admin Dose 5 MG; Start 03/17/16 at 23:30 Metoprolol Tartrate (Lopressor) 5 mg Q4H PRN IV ELEVATED HEART RATE Last administered on 03/18/16 01:41; Admin Dose 5 MG; Start 03/18/16 at 01:30 Acetaminophen 650 mg 650 mg Q6H PRN PO PAIN AND OR ELEVATED TEMP Last administered on 03/19/16 01:18; Admin Dose 650 MG; Start 03/18/16 at 23:30 Meropenem (Merrem 500 Mg/ 100 ml (Pmx)) 100 ml @ 200 mls/hr Q12 IVPB Last administered on 03/29/16 08:49; Admin Dose 200 MLS/HR; Start 03/19/16 at 09:00 Aspirin (Aspirin) 81 mg DAILY NGT Last administered on 03/29/16 08:49; Admin Dose 81 MG; Start 03/21/16 at 09:00 Pantoprazole (Protonix Iv) 40 mg DAILY@06 IV Last administered on 03/29/16 05: 29; Admin Dose 40 MG; Start 03/21/16 at 06:00 Collagenase 1 applic 1 applic DAILY TOP Last administered on 03/28/16 09:48; Admin Dose 1 APPLIC; Start 03/21/16 at 15:00 Vancomycin HCl/ Sodium Chloride (Vancocin/NS) 150 ml @ 75 mls/hr Q36H IVPB Last administered on 03/28/16 13:34; Admin Dose 75 MLS/HR; Start 03/22/16 at 13: 00 Metoprolol Tartrate (Lopressor) 25 mg BID PO Last administered on 03/29/16 08: 50; Admin Dose 25 MG; Start 03/22/16 at 21:00 IV Flush (NS 10 ml) 10 ml PRN PRN IV IV PROTOCOL; Start 03/22/16 at 12:30 Hydralazine HCl (Apresoline) 50 mg Q8 PO Last administered on 03/29/16 05:29; Admin Dose 50 MG; Start 03/23/16 at 14:00 Fluconazole (Diflucan) 100 mg DAILY PO Last administered on 03/29/16 08:51; Admin Dose 100 MG; Start 03/25/16 at 09:00 Potassium Chloride (Klor-Con 10) 10 meq BID PO ; Start 03/29/16 at 21:00 Miscellaneous Information (*Rx Drug Level Order Reminder*) VANCOMYCIN TROUGH AT 0000 ONCE ONCE XX ; Start 03/30/16 at 00:00; Stop 03/30/16 at 00:01 PHOEBE BANDA NP Mar 29, 2016 13:18
--- NOTE | 2016-03-29 14:13 | CONS ---
Date/Time of Note Date/Time of Note DATE: 03/29/16 TIME: 14:08 Assessment/Plan Assessment/Plan Chief Complaint/Hosp Course IMPRESSION: 1. Positive troponin, assess significance in the setting of renal failure, status post code blue with respiratory arrest.-Now trended negative 2. Cardiomyopathy with decreased left ventricular ejection fraction/CHF- systolic acute on chronic. last EF being approximately 35% by echo. 3. Abnormal electrocardiogram, assess for acute coronary syndrome. 4. Hypotension-now improved with HTN 5. Anemia. 6. Renal failure-improving 7. Hypokalemia s/p repletion 8. Hypernatremia-improved 9. Hemothorax status post VATS with decortication. 10. Status post pulmonary arrest. 11. Anemia. 12. Lower extremity edema. 14. Colitis 15. Resp failure s/p extubation 16.Hypokalemia Recc: -tele -serial ecg's -Cont lasix diuresis and follow volume status closely -Add metolazone to improve diuresis -Continue abx's and f/u cx data -Continue BB/hydralazine and follow BP closely -Replete KCL Problems: Consultation Date/Type/Reason Admit Date/Time Feb 24, 2016 at 04:06 Initial Consult Date 03/20/16 Type of Consultation: Cardiology Reason for Consultation Positive troponin Referring Provider: HOWARD LEVY MD Exam/Review of Systems Vital Signs Vitals Vital Signs Date Time Temp Pulse Resp B/P Pulse Ox O2 Delivery O2 Flow Rate FiO2 03/29/16 12:12 54 03/29/16 11:38 97.3 20 113/53 95 03/29/16 08:00 Nasal Cannula 03/29/16 00:00 2.0 03/26/16 18:31 21 Intake and Output 03/28/16 03/28/16 03/29/16 15:00 23:00 07:00 Intake Total 720 ml 500 ml Output Total 850 ml 1000 ml Balance -130 ml -500 ml Exam Review of Systems: CONSTITUTIONAL: No fevers, chills. PULMONARY: No sob CARDIOVASCULAR: No chest pain/palpitations GASTROINTESTINAL: No nausea/vomiting. GENITOURINARY: No hematuria/dysuria. MUSCULOSKELETAL: No myagias/arthalgias. PSYCHIATRIC: The patient denies depression. NEUROLOGIC: Generalized weakness Constitutional: alert Psych: no complaints Head: normocephalic ENMT: mucosa pink and moist Neck: jvd, supple Respiratory: diminished breath sounds (at bases/B) Cardiovascular: regular rate and rhythm Gastrointestinal: non-tender, soft Musculoskeletal: muscle tone (normal) Extremities: pitting pedal edema (Bilateral) Neurological: other (No focal deficits) Results Result Diagram: 03/27/16 0641 03/29/16 0614 Results 24 hrs Laboratory Tests Test 03/29/16 06:14 Activated Partial Thromboplast Time 34.8 Anion Gap 9 Blood Urea Nitrogen 11 Calcium Level 6.8 L Carbon Dioxide Level 27 Chloride Level 104 Creatinine 0.57 Glucose Level 79 # INR International Normalized Ratio 1.26 Magnesium Level 1.3 L Potassium Level 2.1 *L Prothrombin Time 15.9 H Prothrombin Time Ratio 1.2 Sodium Level 138 Medications Medications Current Medications Lorazepam (Ativan) 0.5 mg Q6H PRN IV ANXIETY Last administered on 03/17/16 18: 50; Admin Dose 0.5 MG; Start 02/24/16 at 02:00 Ondansetron HCl (Zofran Inj) 4 mg Q6H PRN IV NAUSEA AND/OR VOMITING Last administered on 03/01/16 13:17; Admin Dose 4 MG; Start 02/24/16 at 02:00 Nitroglycerin (Nitroglycerin (Sl Tab) 0.4 Mg) 1 tab Q5M PRN SL CHEST PAIN; Start 02/24/16 at 02:00 Hydralazine HCl (Apresoline) 10 mg Q6H PRN IV SBP > 160 Last administered on 20:57; Admin Dose 10 MG; Start 02/24/16 at 02:00 Labetalol HCl (Labetalol) 10 mg Q6 PRN IV ELEVATED BLOOD PRESSURE; Start at 23:00 Guaifenesin/ Dextromethorphan (Robitussin Dm Liquid Cup) 5 ml Q6 PRN PO COUGH Last administered on 02/27/16 18:12; Admin Dose 5 ML; Start 02/24/16 at 23:00 Nicotine (Nicoderm 21 Mg/ 24hr) 1 patch DAILY TRANSDERM Last administered on 08:50; Admin Dose 1 PATCH; Start 02/26/16 at 09:00 Levothyroxine Sodium (Synthroid) 25 mcg DAILY@06 PO Last administered on 05:29; Admin Dose 25 MCG; Start 02/28/16 at 06:00 Hydromorphone HCl (Dilaudid) 0.5 mg Q3 PRN IV PAIN Last administered on 19:06; Admin Dose 0.5 MG; Start 03/02/16 at 17:00 Heparin Sodium (Porcine) (Heparin (5000 Units/0.5 ml)) 5,000 unit BID SC Last administered on 03/29/16 09:09; Admin Dose 5,000 UNIT; Start 03/02/16 at 21:30 Dicyclomine HCl (Bentyl) 10 mg BID PO Last administered on 03/29/16 08:49; Admin Dose 10 MG; Start 03/15/16 at 21:00 Metronidazole (Flagyl) 500 mg Q8 PO Last administered on 03/29/16 13:55; Admin Dose 500 MG; Start 03/16/16 at 22:00 Verapamil HCl (Verapamil) 5 mg Q6H PRN IV ELEVATED HEART RATE Last administered on 03/17/16 23:45; Admin Dose 5 MG; Start 03/17/16 at 23:30 Zolpidem Tartrate (Ambien) 5 mg HS PRN PO INSOMNIA Last administered on 21:06; Admin Dose 5 MG; Start 03/17/16 at 23:30 Metoprolol Tartrate (Lopressor) 5 mg Q4H PRN IV ELEVATED HEART RATE Last administered on 03/18/16 01:41; Admin Dose 5 MG; Start 03/18/16 at 01:30 Acetaminophen 650 mg 650 mg Q6H PRN PO PAIN AND OR ELEVATED TEMP Last administered on 03/19/16 01:18; Admin Dose 650 MG; Start 03/18/16 at 23:30 Meropenem (Merrem 500 Mg/ 100 ml (Pmx)) 100 ml @ 200 mls/hr Q12 IVPB Last administered on 03/29/16 08:49; Admin Dose 200 MLS/HR; Start 03/19/16 at 09:00 Aspirin (Aspirin) 81 mg DAILY NGT Last administered on 03/29/16 08:49; Admin Dose 81 MG; Start 03/21/16 at 09:00 Pantoprazole (Protonix Iv) 40 mg DAILY@06 IV Last administered on 03/29/16 05: 29; Admin Dose 40 MG; Start 03/21/16 at 06:00 Collagenase 1 applic 1 applic DAILY TOP Last administered on 03/28/16 09:48; Admin Dose 1 APPLIC; Start 03/21/16 at 15:00 Vancomycin HCl/ Sodium Chloride (Vancocin/NS) 150 ml @ 75 mls/hr Q36H IVPB Last administered on 03/28/16 13:34; Admin Dose 75 MLS/HR; Start 03/22/16 at 13: 00 Metoprolol Tartrate (Lopressor) 25 mg BID PO Last administered on 03/29/16 08: 50; Admin Dose 25 MG; Start 03/22/16 at 21:00 IV Flush (NS 10 ml) 10 ml PRN PRN IV IV PROTOCOL; Start 03/22/16 at 12:30 Hydralazine HCl (Apresoline) 50 mg Q8 PO Last administered on 03/29/16 13:55; Admin Dose 50 MG; Start 03/23/16 at 14:00 Fluconazole (Diflucan) 100 mg DAILY PO Last administered on 03/29/16 08:51; Admin Dose 100 MG; Start 03/25/16 at 09:00 Potassium Chloride (Klor-Con 10) 10 meq BID PO ; Start 03/29/16 at 21:00 Miscellaneous Information (*Rx Drug Level Order Reminder*) VANCOMYCIN TROUGH AT 0000 ONCE ONCE XX ; Start 03/30/16 at 00:00; Stop 03/30/16 at 00:01 KORINA OCONNOR Mar 29, 2016 14:13
--- NOTE | 2016-03-29 14:41 | RADRPT ---
PROCEDURE: US Abdomen limited . CLINICAL INDICATION: Ascites TECHNIQUE: Multiple real-time images were acquired of the patient's abdomen utilizing a high resol ution transducer. COMPARISON: None FINDINGS: There is a small amount of ascites. RPTAT: AA IMPRESSION: Small amount of ascites. .Scott Soliz MD, Date Time Electronically viewed and signed by .Scott Soliz MD, on 03/29/2016 14:41 .S/
--- NOTE | 2016-03-29 17:12 | PN ---
Date/Time of Note Date/Time of Note DATE: 03/29/16 TIME: 17:11 Assessment/Plan Lines/Catheters IV Catheter Type (from [facility]): PICC Line Francois in Place (from [facility]): Yes Assessment/Plan Chief Complaint/Hosp Course 1. Abdominal pain, with CT diagnosis of pancolitis, with significant leukocytosis and bandemia. s/p Lap exploration and only small mid transverse with min mottling. Bowel function. -Antibiotics per ID -Judicious fluid management 2. Sepsis, multifactorial (pancolitis ? ischemic, urinary tract infection, pulmonary infiltrates, bacteremia). Leukocytosis ? etiology (aspiration vs other). Improved again. -Antibiotic therapy. -Judicious fluid management. -Close monitoring. 3. Renal insufficiency secondary to sepsis. Improved -Continue judicious fluid management. -Avoid nephrotoxic agents as possible. 4. Anemia, with recent hemothorax requiring VATS decortication. -Transfuse as needed. 5. Hypoalbuminemia. -Eventual nutritional optimization. 6. Hypernatremia -Correct with fluid management. 7. Hypertension. -Nutritional and medication optimization. 8. Hypothyroidism. -Replace hormone. 9. Hemopneumothorax, status post VATS. CT removed -followed by CT surgery. 10. Cervical spine injury, being maintained in brace by neurosurgery. 11. Respiratory distress/code s/p re-intubation. ? Aspiration PNA. Extubated again. -pulmonary toilette -abx Thank you, Problems: Subjective 24 Hr Interval Summary No f/c. No nausea or vomiting. Bowel function. Min bloated. No cough. No sz. No rash. No abdominal pain. No chest pain or shortness of breath. Exam/Review of Systems Vital Signs Vitals Vital Signs Date Time Temp Pulse Resp B/P Pulse Ox O2 Delivery O2 Flow Rate FiO2 03/29/16 16:48 56 03/29/16 15:40 97.2 20 110/54 99 03/29/16 08:00 Nasal Cannula 03/29/16 00:00 2.0 03/26/16 18:31 21 Intake and Output 03/28/16 03/28/16 03/29/16 15:00 23:00 07:00 Intake Total 720 ml 500 ml Output Total 850 ml 1000 ml Balance -130 ml -500 ml Exam Free Text/Dictation GENERAL: NAD. Responsive HEENT: Pupils equal, reactive. No scleral icterus. Mucous membranes are somewhat dry. NECK: No crepitus. No JVD. PULMONARY: Normal respiratory effort ABDOMEN: No rebound/guarding/rigidity. Distended. EXTREMITIES: Trace edema. VASCULAR: Capillary refill is 2 seconds. NEUROLOGIC: Responsive SKIN: No rashes/jaundice. PSYCH: normal affect Results Result Diagram: 03/27/16 0641 03/29/16 0614 CHRISTIANO JENNINGS MD Mar 29, 2016 17:12
[2016-03-29] MEDS: FUROSEMIDE 40 MG TAB PO SCH (17:56)
--- NOTE | 2016-03-29 18:22 | CONS ---
Date/Time of Note Date/Time of Note DATE: 03/29/16 TIME: 18:22 Assessment/Plan Assessment/Plan Additional Assessment/Plan IMPRESSION: 1. Pneumonia. 2. Pleural effusion. 3. Colitis, much better. 4. Hypokalemia. 5. Status post extubation for respiratory failure. 6. Leukocytosis, resolved. 7. Status post exploratory laparotomy. 8. Anemia. PLAN: At this point, is to continue present care. Aspiration precautions and encourage p.o. feeding. encourage po feeding PT Consultation Date/Type/Reason Admit Date/Time Feb 24, 2016 at 04:06 Type of Consultation: Cardiology Referring Provider: HOWARD LEVY MD 24 HR Interval Summary Constitutional: improved Exam/Review of Systems Vital Signs Vitals Vital Signs Date Time Temp Pulse Resp B/P Pulse Ox O2 Delivery O2 Flow Rate FiO2 03/29/16 16:48 56 03/29/16 15:40 97.2 20 110/54 99 03/29/16 08:00 Nasal Cannula 03/29/16 00:00 2.0 03/26/16 18:31 21 Intake and Output 03/28/16 03/28/16 03/29/16 15:00 23:00 07:00 Intake Total 720 ml 500 ml Output Total 850 ml 1000 ml Balance -130 ml -500 ml Exam Constitutional: alert, oriented, well developed Psych: nl mood/affect, no complaints Head: atraumatic, normocephalic Eyes: EOMI, PERRL, nl conjunctiva, nl lids, nl sclera ENMT: nl external ears & nose, nl lips & teeth, nl nasal mucosa & septum Neck: non-tender, supple Respiratory: clear to auscultation, normal air movement Cardiovascular: nl pulses, regular rate and rhythm Gastrointestinal: nl liver, spleen, non-tender, soft Musculoskeletal: nl extremities to inspection, nl gait and stance Extremities: normal pulses Neurological: [employer] II-XII intact, nl mental status, nl speech, nl strength Skin: nl turgor, No rash or lesions Lymph: nl lymph nodes Results Result Diagram: 03/27/16 0641 03/29/16 0614 Results 24 hrs Laboratory Tests Test 03/29/16 06:14 Activated Partial Thromboplast Time 34.8 Anion Gap 9 Blood Urea Nitrogen 11 Calcium Level 6.8 L Carbon Dioxide Level 27 Chloride Level 104 Creatinine 0.57 Glucose Level 79 # INR International Normalized Ratio 1.26 Magnesium Level 1.3 L Potassium Level 2.1 *L Prothrombin Time 15.9 H Prothrombin Time Ratio 1.2 Sodium Level 138 Medications Medications Current Medications Lorazepam (Ativan) 0.5 mg Q6H PRN IV ANXIETY Last administered on 03/17/16 18: 50; Admin Dose 0.5 MG; Start 02/24/16 at 02:00 Ondansetron HCl (Zofran Inj) 4 mg Q6H PRN IV NAUSEA AND/OR VOMITING Last administered on 03/01/16 13:17; Admin Dose 4 MG; Start 02/24/16 at 02:00 Nitroglycerin (Nitroglycerin (Sl Tab) 0.4 Mg) 1 tab Q5M PRN SL CHEST PAIN; Start 02/24/16 at 02:00 Hydralazine HCl (Apresoline) 10 mg Q6H PRN IV SBP > 160 Last administered on 20:57; Admin Dose 10 MG; Start 02/24/16 at 02:00 Labetalol HCl (Labetalol) 10 mg Q6 PRN IV ELEVATED BLOOD PRESSURE; Start at 23:00 Guaifenesin/ Dextromethorphan (Robitussin Dm Liquid Cup) 5 ml Q6 PRN PO COUGH Last administered on 02/27/16 18:12; Admin Dose 5 ML; Start 02/24/16 at 23:00 Nicotine (Nicoderm 21 Mg/ 24hr) 1 patch DAILY TRANSDERM Last administered on 08:50; Admin Dose 1 PATCH; Start 02/26/16 at 09:00 Levothyroxine Sodium (Synthroid) 25 mcg DAILY@06 PO Last administered on 05:29; Admin Dose 25 MCG; Start 02/28/16 at 06:00 Hydromorphone HCl (Dilaudid) 0.5 mg Q3 PRN IV PAIN Last administered on 19:06; Admin Dose 0.5 MG; Start 03/02/16 at 17:00 Heparin Sodium (Porcine) (Heparin (5000 Units/0.5 ml)) 5,000 unit BID SC Last administered on 03/29/16 09:09; Admin Dose 5,000 UNIT; Start 03/02/16 at 21:30 Dicyclomine HCl (Bentyl) 10 mg BID PO Last administered on 03/29/16 08:49; Admin Dose 10 MG; Start 03/15/16 at 21:00 Metronidazole (Flagyl) 500 mg Q8 PO Last administered on 03/29/16 13:55; Admin Dose 500 MG; Start 03/16/16 at 22:00 Verapamil HCl (Verapamil) 5 mg Q6H PRN IV ELEVATED HEART RATE Last administered on 03/17/16 23:45; Admin Dose 5 MG; Start 03/17/16 at 23:30 Zolpidem Tartrate (Ambien) 5 mg HS PRN PO INSOMNIA Last administered on 21:06; Admin Dose 5 MG; Start 03/17/16 at 23:30 Metoprolol Tartrate (Lopressor) 5 mg Q4H PRN IV ELEVATED HEART RATE Last administered on 03/18/16 01:41; Admin Dose 5 MG; Start 03/18/16 at 01:30 Acetaminophen 650 mg 650 mg Q6H PRN PO PAIN AND OR ELEVATED TEMP Last administered on 03/19/16 01:18; Admin Dose 650 MG; Start 03/18/16 at 23:30 Meropenem (Merrem 500 Mg/ 100 ml (Pmx)) 100 ml @ 200 mls/hr Q12 IVPB Last administered on 03/29/16 08:49; Admin Dose 200 MLS/HR; Start 03/19/16 at 09:00 Aspirin (Aspirin) 81 mg DAILY NGT Last administered on 03/29/16 08:49; Admin Dose 81 MG; Start 03/21/16 at 09:00 Pantoprazole (Protonix Iv) 40 mg DAILY@06 IV Last administered on 03/29/16 05: 29; Admin Dose 40 MG; Start 03/21/16 at 06:00 Collagenase 1 applic 1 applic DAILY TOP Last administered on 03/28/16 09:48; Admin Dose 1 APPLIC; Start 03/21/16 at 15:00 Vancomycin HCl/ Sodium Chloride (Vancocin/NS) 150 ml @ 75 mls/hr Q36H IVPB Last administered on 03/28/16 13:34; Admin Dose 75 MLS/HR; Start 03/22/16 at 13: 00 Metoprolol Tartrate (Lopressor) 25 mg BID PO Last administered on 03/29/16 08: 50; Admin Dose 25 MG; Start 03/22/16 at 21:00 IV Flush (NS 10 ml) 10 ml PRN PRN IV IV PROTOCOL; Start 03/22/16 at 12:30 Hydralazine HCl (Apresoline) 50 mg Q8 PO Last administered on 03/29/16 13:55; Admin Dose 50 MG; Start 03/23/16 at 14:00 Fluconazole (Diflucan) 100 mg DAILY PO Last administered on 03/29/16 08:51; Admin Dose 100 MG; Start 03/25/16 at 09:00 Potassium Chloride (Klor-Con 10) 10 meq BID PO ; Start 03/29/16 at 21:00 Miscellaneous Information (*Rx Drug Level Order Reminder*) VANCOMYCIN TROUGH AT 0000 ONCE ONCE XX ; Start 03/30/16 at 00:00; Stop 03/30/16 at 00:01 CHARISSA WILHELM MD Mar 29, 2016 18:22
[2016-03-29] MEDS ORDERED: MAGNESIUM SULFATE 2 GM/50 ML 50 ML IVPB ONE (19:00)
[2016-03-29] MEDS: HYDROmorphONE 1 MG/ML SYG IV PRN (19:21)
[2016-03-29] MEDS: POTASSIUM CHLORIDE (SR) 10 MEQ TAB PO SCH (21:02)
[2016-03-29] MEDS: LORAZEPAM 2 MG INJ IV PRN (22:32)
[2016-03-30] VITALS (10 sets, daily range): BP systolic 102–130; BP diastolic 50–64; PULSE 52–64; RESP 20
[2016-03-30] MEDS: VANCOMYCIN 750 MG in SOD CHLORIDE 0.9% 150 ML IVPB SCH (02:03)
[2016-03-30] MEDS: LEVOTHYROXINE 25 MCG TAB PO SCH (06:04)
[2016-03-30] MEDS: FUROSEMIDE 40 MG TAB PO SCH ×2 (06:04→18:43)
[2016-03-30] MEDS: metroNIDAZOLE 500 MG TAB PO SCH ×3 (06:04→22:31)
[2016-03-30] MEDS: PANTOPRAZOLE 40 MG INJ IV SCH (06:04)
[2016-03-30 08:22] LABS: BASOPHIL # 0.1 10^3/ul (0.0-0.1); BASOPHILS % 0.7 % (0.0-2.0); EOSINOPHILS % 0.6 % (0.0-7.0); HEMATOCRIT 30.8 % (37.0-47.0); HEMOGLOBIN 10.1 g/dl (12.0-16.0); LYMPHOCYTES # 1.1 10^3/ul (0.8-2.9); LYMPHOCYTES % 16.3 % (15.0-51.0); MEAN CORPUSCULAR HEMOGLOBIN 29.8 pg (29.0-33.0); MEAN CORPUSCULAR HGB CONC 32.8 g/dl (32.0-37.0); MEAN PLATELET VOLUME 10.6 fl (7.4-10.4); MONOCYTE # 0.6 10^3/ul (0.3-0.9); MONOCYTES % 8.6 % (0.0-11.0); NEUTROPHIL # 5.2 10^3/ul (1.6-7.5); NEUTROPHILS % 73.8 % (39.0-77.0); PLATELET COUNT 204 10^3/UL (140-440); RED BLOOD COUNT 3.39 10^6/ul (4.20-5.40); RED CELL DISTRIBUTION WIDTH 17.7 % (11.5-14.5); UNCORRECTED WBC 7.1 10^3/ul (4.8-10.8); WHITE BLOOD COUNT 7.1 10^3/ul (4.8-10.8)
[2016-03-30 08:25] LABS: CONDITION 1; LH ANALYZER COMMENTS 1
[2016-03-30 08:30] LABS: INR 1.27; PT RATIO 1.3
[2016-03-30 08:31] LABS: PARTIAL THROMBOPLASTIN TIME 38.9 Sec (25.0-35.0)
[2016-03-30 08:44] LABS: ALBUMIN 1.9 g/dl (3.3-4.9)
[2016-03-30 08:47] LABS: ALBUMIN/GLOBULIN RATIO 0.82; CREATININE 0.55 mg/dl (0.44-1.00); TOTAL PROTEIN 4.2 g/dl (6.1-8.1)
[2016-03-30 08:48] LABS: CALCIUM 6.9 mg/dl (8.4-10.2)
[2016-03-30] MEDS: MEROPENEM 500 MG/100 ML (PMX) 100 ML IVPB SCH ×3 (09:00→22:31)
[2016-03-30] MEDS: FLUCONAZOLE 100 MG TAB PO SCH (09:00)
[2016-03-30 09:18] LABS: POTASSIUM 2.8 mmol/L (3.5-5.1)
--- NOTE | 2016-03-30 09:25 | PN ---
Date/Time of Note Date/Time of Note DATE: 03/30/16 TIME: 09:18 Assessment/Plan VTE Prophylaxis VTE Prophylaxis Intervention: heparin Lines/Catheters IV Catheter Type (from Nrs): PICC Line Central line still needed: Yes (IV access ) Urinary Cath still in place: Yes Reason Cath still needed: urinary retention Assessment/Plan Assessment/Plan 1. Sepsis. 2. Acute respiratory failure, intubated on ventilator, possible aspiratio pNA s /p Extubation on 03/24/16 3. Bilateral pleural effusions status post thoracentesis x 2 during this admission, last on 03/24/16- CXR on 03/29/16 showed large Right sided pleural effusion 4. Severe pancolitis, patient remains on coverage with Dificid, oral vancomycin and Flagyl. 5. Left lower extremity cellulitis, resolving. 6. Status post Ann glabrata urinary tract infection. 7. Status post cervical spine injury. 8. Status post diagnostic laparoscopy on 03/01/2016. 9. Hypokalemia Plan: IV abx, ID following tolerated PO diet well but feel SOB wiht minimal exertion Plan for right thoracentesis today, no fluid studies need to send fluid studies PICC line care, cano catheter reinserted due to urinary retention KCl 20mEQ IV x 1 dose now (Extra dose), continue PO potassium Family decided for DNR, regarding Hospice care they want to wait Heparin for DVT prophylaxis out of bed to chair TID Subjective 24 Hr Interval Summary Free Text/Dictation pt CXR showed large right pleural effusion, feeling SOB with minimal exertion, plan for Video swallow on sunday, Pt had a Urinary retention required cano catheter reinsertion Exam/Review of Systems Vital Signs Vitals Vital Signs Date Time Temp Pulse Resp B/P Pulse Ox O2 Delivery O2 Flow Rate FiO2 03/30/16 08:20 57 03/30/16 07:11 97.7 20 120/53 100 03/30/16 04:00 Nasal Cannula 2.0 03/26/16 18:31 21 Intake and Output 03/29/16 03/29/16 03/30/16 15:00 23:00 07:00 Intake Total 500 ml 700 ml Output Total 400 ml 1100 ml Balance -400 ml 500 ml -400 ml Exam alert, awake, mild to moderat resp distress bilateral basilar rales , Decreased BS to RML and FLL, + wheezing S1 S2 RRR Soft, NT 1 + edema, + cano catheter Results Result Diagram: 03/30/16 0735 03/30/16 0735 Results 24 hrs Laboratory Tests Test 03/30/16 00:44 03/30/16 07:35 Vancomycin Level Trough 11.1 Activated Partial Thromboplast Time 38.9 H Alanine Aminotransferase (ALT/SGPT) Pending Albumin 1.9 L Albumin/Globulin Ratio Pending Alkaline Phosphatase Pending Anion Gap Pending Aspartate Amino Transf (AST/SGOT) Pending Basophils # 0.1 Basophils % 0.7 Blood Morphology Comment Blood Urea Nitrogen Pending Calcium Level Pending Carbon Dioxide Level Pending Chloride Level 103 Creatinine Pending Direct Bilirubin Pending Eosinophils # 0.0 Eosinophils % 0.6 Globulin Pending Glucose Level Pending Hematocrit 30.8 L Hemoglobin 10.1 L INR International Normalized Ratio 1.27 Indirect Bilirubin Pending Lymphocytes # 1.1 Lymphocytes % 16.3 Magnesium Level 1.6 L Mean Corpuscular Hemoglobin 29.8 Mean Corpuscular Hemoglobin Concent 32.8 Mean Corpuscular Volume 91.0 Mean Platelet Volume 10.6 H Monocytes # 0.6 Monocytes % 8.6 Neutrophils # 5.2 Neutrophils % 73.8 Nucleated Red Blood Cells # 0.0 Nucleated Red Blood Cells % 0.0 Platelet Count 204 Potassium Level Pending Prothrombin Time 16.0 H Prothrombin Time Ratio 1.3 Red Blood Count 3.39 L Red Cell Distribution Width 17.7 H Sodium Level Pending Total Bilirubin Pending Total Protein Pending White Blood Count 7.1 Medications Medications Current Medications Lorazepam (Ativan) 0.5 mg Q6H PRN IV ANXIETY Last administered on 03/29/16 22: 32; Admin Dose 0.5 MG; Start 02/24/16 at 02:00 Ondansetron HCl (Zofran Inj) 4 mg Q6H PRN IV NAUSEA AND/OR VOMITING Last administered on 03/01/16 13:17; Admin Dose 4 MG; Start 02/24/16 at 02:00 Nitroglycerin (Nitroglycerin (Sl Tab) 0.4 Mg) 1 tab Q5M PRN SL CHEST PAIN; Start 02/24/16 at 02:00 Hydralazine HCl (Apresoline) 10 mg Q6H PRN IV SBP > 160 Last administered on 20:57; Admin Dose 10 MG; Start 02/24/16 at 02:00 Labetalol HCl (Labetalol) 10 mg Q6 PRN IV ELEVATED BLOOD PRESSURE; Start at 23:00 Guaifenesin/ Dextromethorphan (Robitussin Dm Liquid Cup) 5 ml Q6 PRN PO COUGH Last administered on 02/27/16 18:12; Admin Dose 5 ML; Start 02/24/16 at 23:00 Nicotine (Nicoderm 21 Mg/ 24hr) 1 patch DAILY TRANSDERM Last administered on 08:50; Admin Dose 1 PATCH; Start 02/26/16 at 09:00 Levothyroxine Sodium (Synthroid) 25 mcg DAILY@06 PO Last administered on 06:04; Admin Dose 25 MCG; Start 02/28/16 at 06:00 Hydromorphone HCl (Dilaudid) 0.5 mg Q3 PRN IV PAIN Last administered on 19:21; Admin Dose 0.5 MG; Start 03/02/16 at 17:00 Heparin Sodium (Porcine) (Heparin (5000 Units/0.5 ml)) 5,000 unit BID SC Last administered on 03/29/16 21:03; Admin Dose 5,000 UNIT; Start 03/02/16 at 21:30 Dicyclomine HCl (Bentyl) 10 mg BID PO Last administered on 03/29/16 21:02; Admin Dose 10 MG; Start 03/15/16 at 21:00 Metronidazole (Flagyl) 500 mg Q8 PO Last administered on 03/30/16 06:04; Admin Dose 500 MG; Start 03/16/16 at 22:00 Verapamil HCl (Verapamil) 5 mg Q6H PRN IV ELEVATED HEART RATE Last administered on 03/17/16 23:45; Admin Dose 5 MG; Start 03/17/16 at 23:30 Zolpidem Tartrate (Ambien) 5 mg HS PRN PO INSOMNIA Last administered on 21:06; Admin Dose 5 MG; Start 03/17/16 at 23:30 Metoprolol Tartrate (Lopressor) 5 mg Q4H PRN IV ELEVATED HEART RATE Last administered on 03/18/16 01:41; Admin Dose 5 MG; Start 03/18/16 at 01:30 Acetaminophen 650 mg 650 mg Q6H PRN PO PAIN AND OR ELEVATED TEMP Last administered on 03/19/16 01:18; Admin Dose 650 MG; Start 03/18/16 at 23:30 Meropenem (Merrem 500 Mg/ 100 ml (Pmx)) 100 ml @ 200 mls/hr Q12 IVPB Last administered on 03/29/16 21:15; Admin Dose 200 MLS/HR; Start 03/19/16 at 09:00 Aspirin (Aspirin) 81 mg DAILY NGT Last administered on 03/29/16 08:49; Admin Dose 81 MG; Start 03/21/16 at 09:00 Pantoprazole (Protonix Iv) 40 mg DAILY@06 IV Last administered on 03/30/16 06: 04; Admin Dose 40 MG; Start 03/21/16 at 06:00 Collagenase 1 applic 1 applic DAILY TOP Last administered on 03/29/16 19:08; Admin Dose 1 APPLIC; Start 03/21/16 at 15:00 Vancomycin HCl/ Sodium Chloride (Vancocin/NS) 150 ml @ 75 mls/hr Q36H IVPB Last administered on 03/30/16 02:03; Admin Dose 75 MLS/HR; Start 03/22/16 at 13: 00 Metoprolol Tartrate (Lopressor) 25 mg BID PO Last administered on 03/29/16 21: 02; Admin Dose 25 MG; Start 03/22/16 at 21:00 IV Flush (NS 10 ml) 10 ml PRN PRN IV IV PROTOCOL; Start 03/22/16 at 12:30 Hydralazine HCl (Apresoline) 50 mg Q8 PO Last administered on 03/30/16 06:05; Admin Dose 50 MG; Start 03/23/16 at 14:00 Fluconazole (Diflucan) 100 mg DAILY PO Last administered on 03/29/16 08:51; Admin Dose 100 MG; Start 03/25/16 at 09:00 Potassium Chloride (Klor-Con 10) 10 meq BID PO Last administered on 03/29/16 21:02; Admin Dose 10 MEQ; Start 03/29/16 at 21:00 HOWARD LEVY MD Mar 30, 2016 09:25
[2016-03-30] MEDS: METOPROLOL 25 MG TAB PO SCH ×2 (09:57→22:32)
[2016-03-30] MEDS: ASPIRIN 81 MG TAB NGT SCH (09:57)
[2016-03-30] MEDS: NICOTINE (21 MG/24 HR) PATCH TRANSDERM SCH (09:57)
[2016-03-30] MEDS: DICYCLOMINE 10 MG CAP PO SCH ×2 (09:57→22:31)
[2016-03-30] MEDS: HEPARIN 5,000 UNIT/0.5 ML SYG SC SCH ×2 (09:58→22:34)
[2016-03-30] MEDS: POTASSIUM CHLORIDE (SR) 10 MEQ TAB PO SCH ×2 (09:58→22:31)
[2016-03-30] MEDS: COLLAGENASE 30 GM TUBE TOP SCH (09:59)
[2016-03-30] MEDS ORDERED: POTASSIUM CHLORIDE 20 MEQ in SOD CHLORIDE 0.9% 100 ML IVPB ONE (11:00)
--- NOTE | 2016-03-30 11:36 | RADRPT ---
PROCEDURE: US guided right thoracentesis. CLINICAL INDICATION: Shortness of breath. Right pleural effusion. TECHNIQUE: Prior to the procedure, informed consent was obtained. The risks, benefits, and alternatives were e xplained to the patient or the patient's family, including but not limited to bleeding, infection, p ain, visceral or vascular damage, shock, pneumothorax, chest tube placement, air embolism, and . The patient or the patient's family understood the risks and the alternatives and wished to proce ed with the study. Informed written consent was obtained. A procedural pause was performed. The patient's name, date of , and procedure to be performed were verified. Ultrasound of the right hemithorax was performed in the axial and sagittal planes. A right pleural e ffusion is noted. Utilizing ultrasound guidance, optimal location for entry to the pleural cavity wa s ascertained. The overlying skin was prepped and draped in the usual sterile fashion. Approximate ly 10 ml of 1% Xylocaine was injected locally for pain control. Using ultrasound guidance, a 5-Fren ch Yueh catheter was introduced into the right pleural space without difficulty. Fluid was aspirated . COMPARISON: None. FINDINGS: Initial ultrasound demonstrates fluid in the right pleural space. Approximately 0.55 liters of sero us fluid was aspirated and discarded. IMPRESSION: 1. Satisfactory ultrasound-guided right thoracentesis. RPTAT: QQ .Carter Field MD, Date Time Electronically viewed and signed by .Carter Field MD, on 03/30/2016 11:36 .R/
[2016-03-30] MEDS ORDERED: LIDOCAINE 1% (MPF) 5 ML VIAL ONE (11:39)
--- NOTE | 2016-03-30 12:47 | PN ---
DATE: 03/30/2016 PULMONARY FOLLOWUP NOTE SUBJECTIVE: Patient underwent thoracentesis with 0.55 L removed from the right pleural space. She tolerated the procedure well without complication, appears comfortable this morning. Post procedure chest x-ray shows elevated right hemidiaphragm, otherwise no evidence of pneumothorax. IMPRESSION AND PLAN: 1. Congestive cardiac failure. 2. Right pleural effusion, status post thoracentesis. 3. Resolving pneumonia. 4. History pancolitis. PLAN: 1. The patient to continue with speech therapy evaluation and aspiration precautions. 2. Continue renal recommendations. 3. Continue DVT and GI prophylaxis. Dictated By: RUBEN ADAMSON/JOSUÉ Conf#: [id number] DID#: [id number]
--- NOTE | 2016-03-30 13:44 | CONS ---
Date/Time of Note Date/Time of Note DATE: 03/30/16 TIME: 13:42 Assessment/Plan Assessment/Plan Chief Complaint/Hosp Course SUBJECTIVE: No acute changes. The patient is awake, looks comfortable, no fevers ANTIMICROBIALS: 1. Fluconazole. 2. Vancomycin 3. Flagyl. 4. Merrem INDWELLINGS: PICC line, Francois catheter. PHYSICAL EXAMINATION: GENERAL: This is a fragile, elderly woman who is in no distress. HEENT: Head atraumatic, normocephalic. Sclerae anicteric. Buccal mucosa pink. NECK: Supple. CHEST: Rise symmetrical. Breath sounds diminished to bases. HEART: S1, S2. ABDOMEN: Distended, bowel tones present. EXTREMITIES: Bilateral LE edema. + anasarca ASSESSMENT: 1. Resolving sepsis. 2. Resolving pneumonia. 3. Status post acute respiratory failure. 4. Left lower extremity cellulitis, resolving. 5. Pancolitis. 6. Status post fungal urinary tract infection. 7. Large pleural effusion, s/p thoracentesis 03/18, 03/24, 03/30 8. Distended abdomen==> small am-t of ascites per US PLAN: The patient remains stable. Continue present care, anti-aspiration measures, complete antibiotics for couple more days, pulmonary rec-s [facility] staff Problems: Consultation Date/Type/Reason Admit Date/Time Feb 24, 2016 at 04:06 Type of Consultation: id Referring Provider: HOWARD LEVY MD Exam/Review of Systems Vital Signs Vitals Vital Signs Date Time Temp Pulse Resp B/P Pulse Ox O2 Delivery O2 Flow Rate FiO2 03/30/16 12:18 61 03/30/16 07:11 97.7 20 120/53 100 03/30/16 04:00 Nasal Cannula 2.0 03/26/16 18:31 21 Intake and Output 03/29/16 03/29/16 03/30/16 15:00 23:00 07:00 Intake Total 500 ml 700 ml Output Total 400 ml 1100 ml Balance -400 ml 500 ml -400 ml Results Result Diagram: 03/30/16 0735 03/30/16 0735 Results 24 hrs Laboratory Tests Test 03/30/16 00:44 03/30/16 07:35 Vancomycin Level Trough 11.1 Activated Partial Thromboplast Time 38.9 H Alanine Aminotransferase (ALT/SGPT) 28 Albumin 1.9 L Albumin/Globulin Ratio 0.82 Alkaline Phosphatase 121 Anion Gap 10 Aspartate Amino Transf (AST/SGOT) 27 Basophils # 0.1 Basophils % 0.7 Blood Morphology Comment Blood Urea Nitrogen 10 Calcium Level 6.9 L Carbon Dioxide Level 26 Chloride Level 103 Creatinine 0.55 Direct Bilirubin 0.00 Eosinophils # 0.0 Eosinophils % 0.6 Globulin 2.30 Glucose Level 79 Hematocrit 30.8 L Hemoglobin 10.1 L INR International Normalized Ratio 1.27 Indirect Bilirubin 0.0 Lymphocytes # 1.1 Lymphocytes % 16.3 Magnesium Level 1.6 L Mean Corpuscular Hemoglobin 29.8 Mean Corpuscular Hemoglobin Concent 32.8 Mean Corpuscular Volume 91.0 Mean Platelet Volume 10.6 H Monocytes # 0.6 Monocytes % 8.6 Neutrophils # 5.2 Neutrophils % 73.8 Nucleated Red Blood Cells # 0.0 Nucleated Red Blood Cells % 0.0 Platelet Count 204 Potassium Level 2.8 *L Prothrombin Time 16.0 H Prothrombin Time Ratio 1.3 Red Blood Count 3.39 L Red Cell Distribution Width 17.7 H Sodium Level 136 Total Bilirubin 0.0 L Total Protein 4.2 L White Blood Count 7.1 Medications Medications Current Medications Lorazepam (Ativan) 0.5 mg Q6H PRN IV ANXIETY Last administered on 03/29/16 22: 32; Admin Dose 0.5 MG; Start 02/24/16 at 02:00 Ondansetron HCl (Zofran Inj) 4 mg Q6H PRN IV NAUSEA AND/OR VOMITING Last administered on 03/01/16 13:17; Admin Dose 4 MG; Start 02/24/16 at 02:00 Nitroglycerin (Nitroglycerin (Sl Tab) 0.4 Mg) 1 tab Q5M PRN SL CHEST PAIN; Start 02/24/16 at 02:00 Hydralazine HCl (Apresoline) 10 mg Q6H PRN IV SBP > 160 Last administered on 20:57; Admin Dose 10 MG; Start 02/24/16 at 02:00 Labetalol HCl (Labetalol) 10 mg Q6 PRN IV ELEVATED BLOOD PRESSURE; Start at 23:00 Guaifenesin/ Dextromethorphan (Robitussin Dm Liquid Cup) 5 ml Q6 PRN PO COUGH Last administered on 02/27/16 18:12; Admin Dose 5 ML; Start 02/24/16 at 23:00 Nicotine (Nicoderm 21 Mg/ 24hr) 1 patch DAILY TRANSDERM Last administered on 09:57; Admin Dose 1 PATCH; Start 02/26/16 at 09:00 Levothyroxine Sodium (Synthroid) 25 mcg DAILY@06 PO Last administered on 06:04; Admin Dose 25 MCG; Start 02/28/16 at 06:00 Hydromorphone HCl (Dilaudid) 0.5 mg Q3 PRN IV PAIN Last administered on 19:21; Admin Dose 0.5 MG; Start 03/02/16 at 17:00 Heparin Sodium (Porcine) (Heparin (5000 Units/0.5 ml)) 5,000 unit BID SC Last administered on 03/30/16 09:58; Admin Dose 5,000 UNIT; Start 03/02/16 at 21:30 Dicyclomine HCl (Bentyl) 10 mg BID PO Last administered on 03/30/16 09:57; Admin Dose 10 MG; Start 03/15/16 at 21:00 Metronidazole (Flagyl) 500 mg Q8 PO Last administered on 03/30/16 06:04; Admin Dose 500 MG; Start 03/16/16 at 22:00 Verapamil HCl (Verapamil) 5 mg Q6H PRN IV ELEVATED HEART RATE Last administered on 03/17/16 23:45; Admin Dose 5 MG; Start 03/17/16 at 23:30 Zolpidem Tartrate (Ambien) 5 mg HS PRN PO INSOMNIA Last administered on 21:06; Admin Dose 5 MG; Start 03/17/16 at 23:30 Metoprolol Tartrate (Lopressor) 5 mg Q4H PRN IV ELEVATED HEART RATE Last administered on 03/18/16 01:41; Admin Dose 5 MG; Start 03/18/16 at 01:30 Acetaminophen 650 mg 650 mg Q6H PRN PO PAIN AND OR ELEVATED TEMP Last administered on 03/19/16 01:18; Admin Dose 650 MG; Start 03/18/16 at 23:30 Meropenem (Merrem 500 Mg/ 100 ml (Pmx)) 100 ml @ 200 mls/hr Q12 IVPB Last administered on 03/30/16 12:12; Admin Dose 200 MLS/HR; Start 03/19/16 at 09:00 Aspirin (Aspirin) 81 mg DAILY NGT Last administered on 03/30/16 09:57; Admin Dose 81 MG; Start 03/21/16 at 09:00 Pantoprazole (Protonix Iv) 40 mg DAILY@06 IV Last administered on 03/30/16 06: 04; Admin Dose 40 MG; Start 03/21/16 at 06:00 Collagenase 1 applic 1 applic DAILY TOP Last administered on 03/30/16 09:59; Admin Dose 1 APPLIC; Start 03/21/16 at 15:00 Vancomycin HCl/ Sodium Chloride (Vancocin/NS) 150 ml @ 75 mls/hr Q36H IVPB Last administered on 03/30/16 02:03; Admin Dose 75 MLS/HR; Start 03/22/16 at 13: 00 Metoprolol Tartrate (Lopressor) 25 mg BID PO Last administered on 03/30/16 09: 57; Admin Dose 25 MG; Start 03/22/16 at 21:00 IV Flush (NS 10 ml) 10 ml PRN PRN IV IV PROTOCOL; Start 03/22/16 at 12:30 Hydralazine HCl (Apresoline) 50 mg Q8 PO Last administered on 03/30/16 06:05; Admin Dose 50 MG; Start 03/23/16 at 14:00 Fluconazole (Diflucan) 100 mg DAILY PO Last administered on 03/29/16 08:51; Admin Dose 100 MG; Start 03/25/16 at 09:00 Potassium Chloride (Klor-Con 10) 10 meq BID PO Last administered on 03/30/16 09:58; Admin Dose 10 MEQ; Start 03/29/16 at 21:00 PHOEBE BANDA NP Mar 30, 2016 13:43
--- NOTE | 2016-03-30 15:18 | RADRPT ---
PROCEDURE: XR Chest. CLINICAL INDICATION: Status post right thoracentesis. TECHNIQUE: Single AP portable chest COMPARISON: 03/29/2016 FINDINGS: The cardiomediastinal silhouette is within normal limits of size . Persistent right pleural effusion decreased compared to the previous study status post thoracentesis. The left lung is clear. Ather osclerotic calcification of the aortic arch. Decreased vascular congestion. Left PICC line cathete r tip overlying the mid superior vena cava. . No pneumothorax. The osseous structures and soft tiss ues are unremarkable. IMPRESSION: 1. Decreased right pleural effusion status post thoracentesis. No postprocedural pneumothorax.. RPTAT:AAJJ Physician Gladys Date Time Electronically viewed and signed by Physician Gladys on 03/30/2016 15:17 MARY/
--- NOTE | 2016-03-30 17:35 | CONS ---
Date/Time of Note Date/Time of Note DATE: 03/30/16 TIME: 17:34 Assessment/Plan Assessment/Plan Additional Assessment/Plan IMPRESSION: 1. Pneumonia. 2. Pleural effusion. 3. Colitis, much better. 4. Hypokalemia. 5. Status post extubation for respiratory failure. 6. Leukocytosis, resolved. 7. Status post exploratory laparotomy. 8. Anemia. 9. s/p thoracocentesis PLAN: At this point, is to continue present care. Aspiration precautions and encourage p.o. feeding. encourage po feeding PT Consultation Date/Type/Reason Admit Date/Time Feb 24, 2016 at 04:06 Type of Consultation: id Referring Provider: HOWARD LEVY MD 24 HR Interval Summary Constitutional: improved Exam/Review of Systems Vital Signs Vitals Vital Signs Date Time Temp Pulse Resp B/P Pulse Ox O2 Delivery O2 Flow Rate FiO2 03/30/16 16:54 64 03/30/16 15:00 97.8 20 128/64 100 03/30/16 04:00 Nasal Cannula 2.0 03/26/16 18:31 21 Intake and Output 03/29/16 03/29/16 03/30/16 15:00 23:00 07:00 Intake Total 500 ml 700 ml Output Total 400 ml 1100 ml Balance -400 ml 500 ml -400 ml Exam Constitutional: alert, oriented, well developed Psych: nl mood/affect, no complaints Head: atraumatic, normocephalic Eyes: EOMI, PERRL, nl conjunctiva, nl lids, nl sclera ENMT: nl external ears & nose, nl lips & teeth, nl nasal mucosa & septum Neck: non-tender, supple Respiratory: clear to auscultation, normal air movement Cardiovascular: nl pulses, regular rate and rhythm Gastrointestinal: nl liver, spleen, non-tender, soft Musculoskeletal: nl extremities to inspection, nl gait and stance Extremities: normal pulses Neurological: PR[employer]IPAL [employer]NER II-XII intact, nl mental status, nl speech, nl strength Skin: nl turgor, No rash or lesions Lymph: nl lymph nodes Results Result Diagram: 03/30/16 0735 03/30/16 0735 Results 24 hrs Laboratory Tests Test 03/30/16 00:44 03/30/16 07:35 Vancomycin Level Trough 11.1 Activated Partial Thromboplast Time 38.9 H Alanine Aminotransferase (ALT/SGPT) 28 Albumin 1.9 L Albumin/Globulin Ratio 0.82 Alkaline Phosphatase 121 Anion Gap 10 Aspartate Amino Transf (AST/SGOT) 27 Basophils # 0.1 Basophils % 0.7 Blood Morphology Comment Blood Urea Nitrogen 10 Calcium Level 6.9 L Carbon Dioxide Level 26 Chloride Level 103 Creatinine 0.55 Direct Bilirubin 0.00 Eosinophils # 0.0 Eosinophils % 0.6 Globulin 2.30 Glucose Level 79 Hematocrit 30.8 L Hemoglobin 10.1 L INR International Normalized Ratio 1.27 Indirect Bilirubin 0.0 Lymphocytes # 1.1 Lymphocytes % 16.3 Magnesium Level 1.6 L Mean Corpuscular Hemoglobin 29.8 Mean Corpuscular Hemoglobin Concent 32.8 Mean Corpuscular Volume 91.0 Mean Platelet Volume 10.6 H Monocytes # 0.6 Monocytes % 8.6 Neutrophils # 5.2 Neutrophils % 73.8 Nucleated Red Blood Cells # 0.0 Nucleated Red Blood Cells % 0.0 Platelet Count 204 Potassium Level 2.8 *L Prothrombin Time 16.0 H Prothrombin Time Ratio 1.3 Red Blood Count 3.39 L Red Cell Distribution Width 17.7 H Sodium Level 136 Total Bilirubin 0.0 L Total Protein 4.2 L White Blood Count 7.1 Medications Medications Current Medications Lorazepam (Ativan) 0.5 mg Q6H PRN IV ANXIETY Last administered on 03/29/16 22: 32; Admin Dose 0.5 MG; Start 02/24/16 at 02:00 Ondansetron HCl (Zofran Inj) 4 mg Q6H PRN IV NAUSEA AND/OR VOMITING Last administered on 03/01/16 13:17; Admin Dose 4 MG; Start 02/24/16 at 02:00 Nitroglycerin (Nitroglycerin (Sl Tab) 0.4 Mg) 1 tab Q5M PRN SL CHEST PAIN; Start 02/24/16 at 02:00 Hydralazine HCl (Apresoline) 10 mg Q6H PRN IV SBP > 160 Last administered on 20:57; Admin Dose 10 MG; Start 02/24/16 at 02:00 Labetalol HCl (Labetalol) 10 mg Q6 PRN IV ELEVATED BLOOD PRESSURE; Start at 23:00 Guaifenesin/ Dextromethorphan (Robitussin Dm Liquid Cup) 5 ml Q6 PRN PO COUGH Last administered on 02/27/16 18:12; Admin Dose 5 ML; Start 02/24/16 at 23:00 Nicotine (Nicoderm 21 Mg/ 24hr) 1 patch DAILY TRANSDERM Last administered on 09:57; Admin Dose 1 PATCH; Start 02/26/16 at 09:00 Levothyroxine Sodium (Synthroid) 25 mcg DAILY@06 PO Last administered on 06:04; Admin Dose 25 MCG; Start 02/28/16 at 06:00 Hydromorphone HCl (Dilaudid) 0.5 mg Q3 PRN IV PAIN Last administered on 19:21; Admin Dose 0.5 MG; Start 03/02/16 at 17:00 Heparin Sodium (Porcine) (Heparin (5000 Units/0.5 ml)) 5,000 unit BID SC Last administered on 03/30/16 09:58; Admin Dose 5,000 UNIT; Start 03/02/16 at 21:30 Dicyclomine HCl (Bentyl) 10 mg BID PO Last administered on 03/30/16 09:57; Admin Dose 10 MG; Start 03/15/16 at 21:00 Metronidazole (Flagyl) 500 mg Q8 PO Last administered on 03/30/16 14:53; Admin Dose 500 MG; Start 03/16/16 at 22:00 Verapamil HCl (Verapamil) 5 mg Q6H PRN IV ELEVATED HEART RATE Last administered on 03/17/16 23:45; Admin Dose 5 MG; Start 03/17/16 at 23:30 Zolpidem Tartrate (Ambien) 5 mg HS PRN PO INSOMNIA Last administered on 21:06; Admin Dose 5 MG; Start 03/17/16 at 23:30 Metoprolol Tartrate (Lopressor) 5 mg Q4H PRN IV ELEVATED HEART RATE Last administered on 03/18/16 01:41; Admin Dose 5 MG; Start 03/18/16 at 01:30 Acetaminophen 650 mg 650 mg Q6H PRN PO PAIN AND OR ELEVATED TEMP Last administered on 03/19/16 01:18; Admin Dose 650 MG; Start 03/18/16 at 23:30 Meropenem (Merrem 500 Mg/ 100 ml (Pmx)) 100 ml @ 200 mls/hr Q12 IVPB Last administered on 03/30/16 12:12; Admin Dose 200 MLS/HR; Start 03/19/16 at 09:00 Aspirin (Aspirin) 81 mg DAILY NGT Last administered on 03/30/16 09:57; Admin Dose 81 MG; Start 03/21/16 at 09:00 Pantoprazole (Protonix Iv) 40 mg DAILY@06 IV Last administered on 03/30/16 06: 04; Admin Dose 40 MG; Start 03/21/16 at 06:00 Collagenase 1 applic 1 applic DAILY TOP Last administered on 03/30/16 09:59; Admin Dose 1 APPLIC; Start 03/21/16 at 15:00 Vancomycin HCl/ Sodium Chloride (Vancocin/NS) 150 ml @ 75 mls/hr Q36H IVPB Last administered on 03/30/16 02:03; Admin Dose 75 MLS/HR; Start 03/22/16 at 13: 00 Metoprolol Tartrate (Lopressor) 25 mg BID PO Last administered on 03/30/16 09: 57; Admin Dose 25 MG; Start 03/22/16 at 21:00 IV Flush (NS 10 ml) 10 ml PRN PRN IV IV PROTOCOL; Start 03/22/16 at 12:30 Hydralazine HCl (Apresoline) 50 mg Q8 PO Last administered on 03/30/16 14:54; Admin Dose 50 MG; Start 03/23/16 at 14:00 Fluconazole (Diflucan) 100 mg DAILY PO Last administered on 03/29/16 08:51; Admin Dose 100 MG; Start 03/25/16 at 09:00 Potassium Chloride (Klor-Con 10) 10 meq BID PO Last administered on 03/30/16 09:58; Admin Dose 10 MEQ; Start 03/29/16 at 21:00 CHARISSA WILHELM MD Mar 30, 2016 17:34
--- NOTE | 2016-03-30 17:58 | CONS ---
Date/Time of Note Date/Time of Note DATE: 03/30/16 TIME: 17:55 Assessment/Plan Assessment/Plan Chief Complaint/Hosp Course IMPRESSION: 1. Positive troponin, assess significance in the setting of renal failure, status post code blue with respiratory arrest.-Now trended negative 2. Cardiomyopathy with decreased left ventricular ejection fraction/CHF- systolic acute on chronic. last EF being approximately 35% by echo. 3. Abnormal electrocardiogram, assess for acute coronary syndrome. 4. Hypotension-now improved with HTN 5. Anemia. 6. Renal failure-improving 7. Hypokalemia s/p repletion 8. Hypernatremia-improved 9. Hemothorax status post VATS with decortication. 10. Status post pulmonary arrest. 11. Anemia. 12. Lower extremity edema. 14. Colitis 15. Resp failure s/p extubation 16.Hypokalemia Recc: -tele -serial ecg's -Cont lasix diuresis and follow volume status closely -Add metolazone to improve diuresis -Continue abx's and f/u cx data -Continue BB/hydralazine and follow BP closely -Replete KCL and agree with standing repletion at this time Problems: Consultation Date/Type/Reason Admit Date/Time Feb 24, 2016 at 04:06 Initial Consult Date 03/20/16 Type of Consultation: Cardiology Reason for Consultation positive troponin Referring Provider: HOWARD LEVY MD Exam/Review of Systems Vital Signs Vitals Vital Signs Date Time Temp Pulse Resp B/P Pulse Ox O2 Delivery O2 Flow Rate FiO2 03/30/16 16:54 64 03/30/16 15:00 97.8 20 128/64 100 03/30/16 04:00 Nasal Cannula 2.0 03/26/16 18:31 21 Intake and Output 03/29/16 03/29/16 03/30/16 15:00 23:00 07:00 Intake Total 500 ml 700 ml Output Total 400 ml 1100 ml Balance -400 ml 500 ml -400 ml Exam Review of Systems: CONSTITUTIONAL: No fevers, chills. PULMONARY: No sob CARDIOVASCULAR: No chest pain/palpitations GASTROINTESTINAL: No nausea/vomiting. GENITOURINARY: No hematuria/dysuria. MUSCULOSKELETAL: No myagias/arthalgias. PSYCHIATRIC: The patient denies depression. NEUROLOGIC: No weakness Constitutional: alert, oriented Psych: no complaints Head: normocephalic ENMT: mucosa pink and moist Neck: jvd, supple Respiratory: diminished breath sounds Cardiovascular: regular rate and rhythm Gastrointestinal: non-tender, soft Musculoskeletal: muscle tone (normal) Extremities: pitting pedal edema (bilateral) Neurological: other (No focal deficits) Results Result Diagram: 03/30/16 0735 03/30/16 0735 Results 24 hrs Laboratory Tests Test 03/30/16 00:44 03/30/16 07:35 Vancomycin Level Trough 11.1 Activated Partial Thromboplast Time 38.9 H Alanine Aminotransferase (ALT/SGPT) 28 Albumin 1.9 L Albumin/Globulin Ratio 0.82 Alkaline Phosphatase 121 Anion Gap 10 Aspartate Amino Transf (AST/SGOT) 27 Basophils # 0.1 Basophils % 0.7 Blood Morphology Comment Blood Urea Nitrogen 10 Calcium Level 6.9 L Carbon Dioxide Level 26 Chloride Level 103 Creatinine 0.55 Direct Bilirubin 0.00 Eosinophils # 0.0 Eosinophils % 0.6 Globulin 2.30 Glucose Level 79 Hematocrit 30.8 L Hemoglobin 10.1 L INR International Normalized Ratio 1.27 Indirect Bilirubin 0.0 Lymphocytes # 1.1 Lymphocytes % 16.3 Magnesium Level 1.6 L Mean Corpuscular Hemoglobin 29.8 Mean Corpuscular Hemoglobin Concent 32.8 Mean Corpuscular Volume 91.0 Mean Platelet Volume 10.6 H Monocytes # 0.6 Monocytes % 8.6 Neutrophils # 5.2 Neutrophils % 73.8 Nucleated Red Blood Cells # 0.0 Nucleated Red Blood Cells % 0.0 Platelet Count 204 Potassium Level 2.8 *L Prothrombin Time 16.0 H Prothrombin Time Ratio 1.3 Red Blood Count 3.39 L Red Cell Distribution Width 17.7 H Sodium Level 136 Total Bilirubin 0.0 L Total Protein 4.2 L White Blood Count 7.1 Medications Medications Current Medications Lorazepam (Ativan) 0.5 mg Q6H PRN IV ANXIETY Last administered on 03/29/16 22: 32; Admin Dose 0.5 MG; Start 02/24/16 at 02:00 Ondansetron HCl (Zofran Inj) 4 mg Q6H PRN IV NAUSEA AND/OR VOMITING Last administered on 03/01/16 13:17; Admin Dose 4 MG; Start 02/24/16 at 02:00 Nitroglycerin (Nitroglycerin (Sl Tab) 0.4 Mg) 1 tab Q5M PRN SL CHEST PAIN; Start 02/24/16 at 02:00 Hydralazine HCl (Apresoline) 10 mg Q6H PRN IV SBP > 160 Last administered on 20:57; Admin Dose 10 MG; Start 02/24/16 at 02:00 Labetalol HCl (Labetalol) 10 mg Q6 PRN IV ELEVATED BLOOD PRESSURE; Start at 23:00 Guaifenesin/ Dextromethorphan (Robitussin Dm Liquid Cup) 5 ml Q6 PRN PO COUGH Last administered on 02/27/16 18:12; Admin Dose 5 ML; Start 02/24/16 at 23:00 Nicotine (Nicoderm 21 Mg/ 24hr) 1 patch DAILY TRANSDERM Last administered on 09:57; Admin Dose 1 PATCH; Start 02/26/16 at 09:00 Levothyroxine Sodium (Synthroid) 25 mcg DAILY@06 PO Last administered on 06:04; Admin Dose 25 MCG; Start 02/28/16 at 06:00 Hydromorphone HCl (Dilaudid) 0.5 mg Q3 PRN IV PAIN Last administered on 19:21; Admin Dose 0.5 MG; Start 03/02/16 at 17:00 Heparin Sodium (Porcine) (Heparin (5000 Units/0.5 ml)) 5,000 unit BID SC Last administered on 03/30/16 09:58; Admin Dose 5,000 UNIT; Start 03/02/16 at 21:30 Dicyclomine HCl (Bentyl) 10 mg BID PO Last administered on 03/30/16 09:57; Admin Dose 10 MG; Start 03/15/16 at 21:00 Metronidazole (Flagyl) 500 mg Q8 PO Last administered on 03/30/16 14:53; Admin Dose 500 MG; Start 03/16/16 at 22:00 Verapamil HCl (Verapamil) 5 mg Q6H PRN IV ELEVATED HEART RATE Last administered on 03/17/16 23:45; Admin Dose 5 MG; Start 03/17/16 at 23:30 Zolpidem Tartrate (Ambien) 5 mg HS PRN PO INSOMNIA Last administered on 21:06; Admin Dose 5 MG; Start 03/17/16 at 23:30 Metoprolol Tartrate (Lopressor) 5 mg Q4H PRN IV ELEVATED HEART RATE Last administered on 03/18/16 01:41; Admin Dose 5 MG; Start 03/18/16 at 01:30 Acetaminophen 650 mg 650 mg Q6H PRN PO PAIN AND OR ELEVATED TEMP Last administered on 03/19/16 01:18; Admin Dose 650 MG; Start 03/18/16 at 23:30 Meropenem (Merrem 500 Mg/ 100 ml (Pmx)) 100 ml @ 200 mls/hr Q12 IVPB Last administered on 03/30/16 12:12; Admin Dose 200 MLS/HR; Start 03/19/16 at 09:00 Aspirin (Aspirin) 81 mg DAILY NGT Last administered on 03/30/16 09:57; Admin Dose 81 MG; Start 03/21/16 at 09:00 Pantoprazole (Protonix Iv) 40 mg DAILY@06 IV Last administered on 03/30/16 06: 04; Admin Dose 40 MG; Start 03/21/16 at 06:00 Collagenase 1 applic 1 applic DAILY TOP Last administered on 03/30/16 09:59; Admin Dose 1 APPLIC; Start 03/21/16 at 15:00 Vancomycin HCl/ Sodium Chloride (Vancocin/NS) 150 ml @ 75 mls/hr Q36H IVPB Last administered on 03/30/16 02:03; Admin Dose 75 MLS/HR; Start 03/22/16 at 13: 00 Metoprolol Tartrate (Lopressor) 25 mg BID PO Last administered on 03/30/16 09: 57; Admin Dose 25 MG; Start 03/22/16 at 21:00 IV Flush (NS 10 ml) 10 ml PRN PRN IV IV PROTOCOL; Start 03/22/16 at 12:30 Hydralazine HCl (Apresoline) 50 mg Q8 PO Last administered on 03/30/16 14:54; Admin Dose 50 MG; Start 03/23/16 at 14:00 Fluconazole (Diflucan) 100 mg DAILY PO Last administered on 03/29/16 08:51; Admin Dose 100 MG; Start 03/25/16 at 09:00 Potassium Chloride (Klor-Con 10) 10 meq BID PO Last administered on 2/16/17at 09:58; Admin Dose 10 MEQ; Start 03/29/16 at 21:00 KORINA OCONNOR Mar 30, 2016 17:58
[2016-03-31] VITALS (14 sets, daily range): BP systolic 119–162; BP diastolic 58–67; PULSE 44–69; RESP 18–20
[2016-03-31] MEDS: metroNIDAZOLE 500 MG TAB PO SCH ×3 (06:08→21:49)
[2016-03-31] MEDS: FUROSEMIDE 40 MG TAB PO SCH ×2 (06:08→19:01)
[2016-03-31] MEDS: PANTOPRAZOLE 40 MG INJ IV SCH (06:08)
[2016-03-31] MEDS: LEVOTHYROXINE 25 MCG TAB PO SCH (06:08)
[2016-03-31 07:56] LABS: INR 1.29; PROTIME 16.2 Sec (12.2-14.2); PT RATIO 1.3
[2016-03-31 07:57] LABS: PARTIAL THROMBOPLASTIN TIME 37.2 Sec (25.0-35.0)
[2016-03-31 08:03] LABS: CREATININE 0.6 mg/dl (0.44-1.00)
[2016-03-31 08:04] LABS: BASOPHILS % 0.2 % (0.0-2.0); CALCIUM 6.8 mg/dl (8.4-10.2); EOSINOPHILS % 0.4 % (0.0-7.0); HEMATOCRIT 28.2 % (37.0-47.0); HEMOGLOBIN 9.3 g/dl (12.0-16.0); LYMPHOCYTES # 1.1 10^3/ul (0.8-2.9); LYMPHOCYTES % 15.7 % (15.0-51.0); MEAN CORPUSCULAR HEMOGLOBIN 30.1 pg (29.0-33.0); MEAN CORPUSCULAR HGB CONC 33.1 g/dl (32.0-37.0); MEAN CORPUSCULAR VOLUME 90.9 fl (82.0-101.0); MEAN PLATELET VOLUME 10.7 fl (7.4-10.4); MONOCYTE # 0.6 10^3/ul (0.3-0.9); MONOCYTES % 9.1 % (0.0-11.0); NEUTROPHIL # 5.3 10^3/ul (1.6-7.5); NEUTROPHILS % 74.6 % (39.0-77.0); PLATELET COUNT 178 10^3/UL (140-440); RED CELL DISTRIBUTION WIDTH 17.4 % (11.5-14.5); UNCORRECTED WBC 7.1 10^3/ul (4.8-10.8); WHITE BLOOD COUNT 7.1 10^3/ul (4.8-10.8)
[2016-03-31 08:21] LABS: CONDITION 1; LH ANALYZER COMMENTS 1
[2016-03-31 08:23] LABS: POTASSIUM 2.6 mmol/L (3.5-5.1)
[2016-03-31] MEDS: HEPARIN 5,000 UNIT/0.5 ML SYG SC SCH ×2 (09:31→22:06)
[2016-03-31] MEDS: MEROPENEM 500 MG/100 ML (PMX) 100 ML IVPB SCH (09:32)
[2016-03-31] MEDS: DICYCLOMINE 10 MG CAP PO SCH ×2 (09:34→21:48)
[2016-03-31] MEDS: METOPROLOL 25 MG TAB PO SCH ×2 (09:34→21:51)
[2016-03-31] MEDS: NICOTINE (21 MG/24 HR) PATCH TRANSDERM SCH (09:35)
[2016-03-31] MEDS: ASPIRIN 81 MG TAB NGT SCH (09:35)
[2016-03-31] MEDS: POTASSIUM CHLORIDE (SR) 10 MEQ TAB PO SCH (09:35)
[2016-03-31] MEDS: COLLAGENASE 30 GM TUBE TOP SCH (09:36)
--- NOTE | 2016-03-31 09:36 | PN ---
Date/Time of Note Date/Time of Note DATE: 03/31/16 TIME: 09:31 Assessment/Plan VTE Prophylaxis VTE Prophylaxis Intervention: heparin Lines/Catheters IV Catheter Type (from Nrs): PICC Line Central line still needed: Yes (IV access for IV abx and Fluids ) Urinary Cath still in place: Yes Reason Cath still needed: urinary retention Assessment/Plan Assessment/Plan 1. Sepsis. 2. Acute respiratory failure, intubated on ventilator, possible aspiratio pNA s /p Extubation on 03/24/16 3. Bilateral pleural effusions status post thoracentesis x 3 , 03/18,03/24 and 4. Severe pancolitis, patient remains on coverage with Dificid, oral vancomycin and Flagyl. 5. Left lower extremity cellulitis, resolving. 6. Status post Ann glabrata urinary tract infection. 7. Status post cervical spine injury. 8. Status post diagnostic laparoscopy on 03/01/2016. 9. Hypokalemia and Hypomagnesemia Plan: IV abx, ID following plan for Barium swallow study today KCL 40mEq IV x 1, Magnesium sulfate 3 gram IV x 1 , increse KDur to 20meQ PO BID s/p Thoracentesis 550cc drained, Post procedure X ray negative for pneumothorax PICC line care, cano catheter reinserted due to urinary retention Family decided for DNR, regarding Hospice care they want to wait Heparin for DVT prophylaxis out of bed to chair TID Family wants to have acute rehab evaluation,- ordered Subjective 24 Hr Interval Summary Free Text/Dictation s/p Thoracentesis 550 cc fluid drained , pt afebrile, BP stable Exam/Review of Systems Vital Signs Vitals Vital Signs Date Time Temp Pulse Resp B/P Pulse Ox O2 Delivery O2 Flow Rate FiO2 03/31/16 08:27 2.0 03/31/16 08:25 69 03/31/16 07:00 97.4 19 119/58 98 03/30/16 22:30 Nasal Cannula Intake and Output 03/30/16 03/30/16 03/31/16 15:00 23:00 07:00 Intake Total 400 ml 100 ml Output Total 700 ml 700 ml Balance -300 ml -600 ml Exam alert, awake, mild to moderat resp distress bilateral basilar rales , Decreased BS to RML and FLL, + wheezing S1 S2 RRR Soft, NT 1 + edema, + cano catheter due to urinary retention Results Result Diagram: 03/31/16 0651 03/31/16 0651 Results 24 hrs Laboratory Tests Test 03/31/16 06:51 Activated Partial Thromboplast Time 37.2 H Anion Gap 8 Basophils # 0.0 Basophils % 0.2 Blood Morphology Comment Blood Urea Nitrogen 11 Calcium Level 6.8 L Carbon Dioxide Level 28 Chloride Level 101 Creatinine 0.60 Eosinophils # 0.0 Eosinophils % 0.4 Glucose Level 78 Hematocrit 28.2 L Hemoglobin 9.3 L INR International Normalized Ratio 1.29 Lymphocytes # 1.1 Lymphocytes % 15.7 Magnesium Level 1.5 L Mean Corpuscular Hemoglobin 30.1 Mean Corpuscular Hemoglobin Concent 33.1 Mean Corpuscular Volume 90.9 Mean Platelet Volume 10.7 H Monocytes # 0.6 Monocytes % 9.1 Neutrophils # 5.3 Neutrophils % 74.6 Nucleated Red Blood Cells # 0.0 Nucleated Red Blood Cells % 0.0 Platelet Count 178 Potassium Level 2.6 *L Prothrombin Time 16.2 H Prothrombin Time Ratio 1.3 Red Blood Count 3.10 L Red Cell Distribution Width 17.4 H Sodium Level 134 L White Blood Count 7.1 Medications Medications Current Medications Lorazepam (Ativan) 0.5 mg Q6H PRN IV ANXIETY Last administered on 03/29/16 22: 32; Admin Dose 0.5 MG; Start 02/24/16 at 02:00 Ondansetron HCl (Zofran Inj) 4 mg Q6H PRN IV NAUSEA AND/OR VOMITING Last administered on 03/01/16 13:17; Admin Dose 4 MG; Start 02/24/16 at 02:00 Nitroglycerin (Nitroglycerin (Sl Tab) 0.4 Mg) 1 tab Q5M PRN SL CHEST PAIN; Start 02/24/16 at 02:00 Hydralazine HCl (Apresoline) 10 mg Q6H PRN IV SBP > 160 Last administered on 20:57; Admin Dose 10 MG; Start 02/24/16 at 02:00 Labetalol HCl (Labetalol) 10 mg Q6 PRN IV ELEVATED BLOOD PRESSURE; Start at 23:00 Guaifenesin/ Dextromethorphan (Robitussin Dm Liquid Cup) 5 ml Q6 PRN PO COUGH Last administered on 02/27/16 18:12; Admin Dose 5 ML; Start 02/24/16 at 23:00 Nicotine (Nicoderm 21 Mg/ 24hr) 1 patch DAILY TRANSDERM Last administered on 09:57; Admin Dose 1 PATCH; Start 02/26/16 at 09:00 Levothyroxine Sodium (Synthroid) 25 mcg DAILY@06 PO Last administered on 06:08; Admin Dose 25 MCG; Start 02/28/16 at 06:00 Hydromorphone HCl (Dilaudid) 0.5 mg Q3 PRN IV PAIN Last administered on 19:21; Admin Dose 0.5 MG; Start 03/02/16 at 17:00 Heparin Sodium (Porcine) (Heparin (5000 Units/0.5 ml)) 5,000 unit BID SC Last administered on 03/30/16 22:34; Admin Dose 5,000 UNIT; Start 03/02/16 at 21:30 Dicyclomine HCl (Bentyl) 10 mg BID PO Last administered on 03/30/16 22:31; Admin Dose 10 MG; Start 03/15/16 at 21:00 Metronidazole (Flagyl) 500 mg Q8 PO Last administered on 03/31/16 06:08; Admin Dose 500 MG; Start 03/16/16 at 22:00 Verapamil HCl (Verapamil) 5 mg Q6H PRN IV ELEVATED HEART RATE Last administered on 03/17/16 23:45; Admin Dose 5 MG; Start 03/17/16 at 23:30 Zolpidem Tartrate (Ambien) 5 mg HS PRN PO INSOMNIA Last administered on 21:06; Admin Dose 5 MG; Start 03/17/16 at 23:30 Metoprolol Tartrate (Lopressor) 5 mg Q4H PRN IV ELEVATED HEART RATE Last administered on 03/18/16 01:41; Admin Dose 5 MG; Start 03/18/16 at 01:30 Acetaminophen 650 mg 650 mg Q6H PRN PO PAIN AND OR ELEVATED TEMP Last administered on 03/19/16 01:18; Admin Dose 650 MG; Start 03/18/16 at 23:30 Meropenem (Merrem 500 Mg/ 100 ml (Pmx)) 100 ml @ 200 mls/hr Q12 IVPB Last administered on 03/30/16 22:31; Admin Dose 200 MLS/HR; Start 03/19/16 at 09:00 Aspirin (Aspirin) 81 mg DAILY NGT Last administered on 03/30/16 09:57; Admin Dose 81 MG; Start 03/21/16 at 09:00 Pantoprazole (Protonix Iv) 40 mg DAILY@06 IV Last administered on 03/31/16 06: 08; Admin Dose 40 MG; Start 03/21/16 at 06:00 Collagenase 1 applic 1 applic DAILY TOP Last administered on 03/30/16 09:59; Admin Dose 1 APPLIC; Start 03/21/16 at 15:00 Vancomycin HCl/ Sodium Chloride (Vancocin/NS) 150 ml @ 75 mls/hr Q36H IVPB Last administered on 03/30/16 02:03; Admin Dose 75 MLS/HR; Start 03/22/16 at 13: 00 Metoprolol Tartrate (Lopressor) 25 mg BID PO Last administered on 03/30/16 22: 32; Admin Dose 25 MG; Start 03/22/16 at 21:00 IV Flush (NS 10 ml) 10 ml PRN PRN IV IV PROTOCOL; Start 03/22/16 at 12:30 Hydralazine HCl (Apresoline) 50 mg Q8 PO Last administered on 03/31/16 06:08; Admin Dose 50 MG; Start 03/23/16 at 14:00 Fluconazole (Diflucan) 100 mg DAILY PO Last administered on 03/29/16 08:51; Admin Dose 100 MG; Start 03/25/16 at 09:00 Potassium Chloride (Klor-Con 10) 10 meq BID PO Last administered on 03/30/16 22:31; Admin Dose 10 MEQ; Start 03/29/16 at 21:00 Metolazone (Zaroxolyn) 5 mg DAILY PO ; Start 03/31/16 at 20:30 HOWARD LEVY MD Mar 31, 2016 09:36
[2016-03-31] MEDS ORDERED: LOPERAMIDE 2 MG CAP PO ONE (10:00)
[2016-03-31] MEDS ORDERED: MAGNESIUM SULFATE 3 GM in SOD CHLORIDE 0.9% 100 ML IVPB ONE (10:00)
[2016-03-31] MEDS ORDERED: POTASSIUM CHLORIDE 250 ML IVPB ONE (10:00)
[2016-03-31] MEDS: FLUCONAZOLE 100 MG TAB PO SCH (11:51)
[2016-03-31] MEDS: LACTOBACILLUS RHAMNOSUS CAP PO SCH ×2 (11:51→21:49)
--- NOTE | 2016-03-31 13:55 | CONS ---
Date/Time of Note Date/Time of Note DATE: 03/31/16 TIME: 13:54 Assessment/Plan Assessment/Plan Chief Complaint/Hosp Course SUBJECTIVE: No acute changes. The patient is awake, looks comfortable, no fevers ANTIMICROBIALS: 1. Fluconazole. 2. Vancomycin 3. Flagyl. 4. Merrem INDWELLINGS: PICC line, Francois catheter. PHYSICAL EXAMINATION: GENERAL: This is a fragile, elderly woman who is in no distress. HEENT: Head atraumatic, normocephalic. Sclerae anicteric. Buccal mucosa pink. NECK: Supple. CHEST: Rise symmetrical. Breath sounds diminished to bases. HEART: S1, S2. ABDOMEN: Distended, bowel tones present. EXTREMITIES: Bilateral LE edema. + anasarca ASSESSMENT: 1. Resolving sepsis. 2. Resolving pneumonia. 3. Status post acute respiratory failure. 4. Left lower extremity cellulitis, resolving. 5. Pancolitis. 6. Status post fungal urinary tract infection. 7. Large pleural effusion, s/p thoracentesis 03/18, 03/24, 03/30 8. Distended abdomen==> small am-t of ascites per US PLAN: The patient remains stable. Will dc abx in am and observe. Will keep on Flagyl DW staff Problems: Consultation Date/Type/Reason Admit Date/Time Feb 24, 2016 at 04:06 Type of Consultation: id Referring Provider: HOWARD LEVY MD Exam/Review of Systems Vital Signs Vitals Vital Signs Date Time Temp Pulse Resp B/P Pulse Ox O2 Delivery O2 Flow Rate FiO2 03/31/16 12:36 54 03/31/16 11:00 97.5 19 135/59 100 03/31/16 08:27 2.0 03/30/16 22:30 Nasal Cannula Intake and Output 03/30/16 03/30/16 03/31/16 15:00 23:00 07:00 Intake Total 400 ml 100 ml Output Total 700 ml 700 ml Balance -300 ml -600 ml Results Result Diagram: 03/31/16 0651 03/31/16 0651 Results 24 hrs Laboratory Tests Test 03/31/16 06:51 Activated Partial Thromboplast Time 37.2 H Anion Gap 8 Basophils # 0.0 Basophils % 0.2 Blood Morphology Comment Blood Urea Nitrogen 11 Calcium Level 6.8 L Carbon Dioxide Level 28 Chloride Level 101 Creatinine 0.60 Eosinophils # 0.0 Eosinophils % 0.4 Glucose Level 78 Hematocrit 28.2 L Hemoglobin 9.3 L INR International Normalized Ratio 1.29 Lymphocytes # 1.1 Lymphocytes % 15.7 Magnesium Level 1.5 L Mean Corpuscular Hemoglobin 30.1 Mean Corpuscular Hemoglobin Concent 33.1 Mean Corpuscular Volume 90.9 Mean Platelet Volume 10.7 H Monocytes # 0.6 Monocytes % 9.1 Neutrophils # 5.3 Neutrophils % 74.6 Nucleated Red Blood Cells # 0.0 Nucleated Red Blood Cells % 0.0 Platelet Count 178 Potassium Level 2.6 *L Prothrombin Time 16.2 H Prothrombin Time Ratio 1.3 Red Blood Count 3.10 L Red Cell Distribution Width 17.4 H Sodium Level 134 L White Blood Count 7.1 Medications Medications Current Medications Lorazepam (Ativan) 0.5 mg Q6H PRN IV ANXIETY Last administered on 03/29/16 22: 32; Admin Dose 0.5 MG; Start 02/24/16 at 02:00 Ondansetron HCl (Zofran Inj) 4 mg Q6H PRN IV NAUSEA AND/OR VOMITING Last administered on 03/01/16 13:17; Admin Dose 4 MG; Start 02/24/16 at 02:00 Nitroglycerin (Nitroglycerin (Sl Tab) 0.4 Mg) 1 tab Q5M PRN SL CHEST PAIN; Start 02/24/16 at 02:00 Hydralazine HCl (Apresoline) 10 mg Q6H PRN IV SBP > 160 Last administered on 20:57; Admin Dose 10 MG; Start 02/24/16 at 02:00 Labetalol HCl (Labetalol) 10 mg Q6 PRN IV ELEVATED BLOOD PRESSURE; Start at 23:00 Guaifenesin/ Dextromethorphan (Robitussin Dm Liquid Cup) 5 ml Q6 PRN PO COUGH Last administered on 02/27/16 18:12; Admin Dose 5 ML; Start 02/24/16 at 23:00 Nicotine (Nicoderm 21 Mg/ 24hr) 1 patch DAILY TRANSDERM Last administered on 09:35; Admin Dose 1 PATCH; Start 02/26/16 at 09:00 Levothyroxine Sodium (Synthroid) 25 mcg DAILY@06 PO Last administered on 06:08; Admin Dose 25 MCG; Start 02/28/16 at 06:00 Hydromorphone HCl (Dilaudid) 0.5 mg Q3 PRN IV PAIN Last administered on 19:21; Admin Dose 0.5 MG; Start 03/02/16 at 17:00 Heparin Sodium (Porcine) (Heparin (5000 Units/0.5 ml)) 5,000 unit BID SC Last administered on 03/31/16 09:31; Admin Dose 5,000 UNIT; Start 03/02/16 at 21:30 Dicyclomine HCl (Bentyl) 10 mg BID PO Last administered on 03/31/16 09:34; Admin Dose 10 MG; Start 03/15/16 at 21:00 Metronidazole (Flagyl) 500 mg Q8 PO Last administered on 03/31/16 06:08; Admin Dose 500 MG; Start 03/16/16 at 22:00 Verapamil HCl (Verapamil) 5 mg Q6H PRN IV ELEVATED HEART RATE Last administered on 03/17/16 23:45; Admin Dose 5 MG; Start 03/17/16 at 23:30 Zolpidem Tartrate (Ambien) 5 mg HS PRN PO INSOMNIA Last administered on 21:06; Admin Dose 5 MG; Start 03/17/16 at 23:30 Metoprolol Tartrate (Lopressor) 5 mg Q4H PRN IV ELEVATED HEART RATE Last administered on 03/18/16 01:41; Admin Dose 5 MG; Start 03/18/16 at 01:30 Acetaminophen 650 mg 650 mg Q6H PRN PO PAIN AND OR ELEVATED TEMP Last administered on 03/19/16 01:18; Admin Dose 650 MG; Start 03/18/16 at 23:30 Meropenem (Merrem 500 Mg/ 100 ml (Pmx)) 100 ml @ 200 mls/hr Q12 IVPB Last administered on 03/31/16 09:32; Admin Dose 200 MLS/HR; Start 03/19/16 at 09:00 Aspirin (Aspirin) 81 mg DAILY NGT Last administered on 03/31/16 09:35; Admin Dose 81 MG; Start 03/21/16 at 09:00 Pantoprazole (Protonix Iv) 40 mg DAILY@06 IV Last administered on 03/31/16 06: 08; Admin Dose 40 MG; Start 03/21/16 at 06:00 Collagenase 1 applic 1 applic DAILY TOP Last administered on 03/31/16 09:36; Admin Dose 1 APPLIC; Start 03/21/16 at 15:00 Vancomycin HCl/ Sodium Chloride (Vancocin/NS) 150 ml @ 75 mls/hr Q36H IVPB Last administered on 03/30/16 02:03; Admin Dose 75 MLS/HR; Start 03/22/16 at 13: 00 Metoprolol Tartrate (Lopressor) 25 mg BID PO Last administered on 03/31/16 09: 34; Admin Dose 25 MG; Start 03/22/16 at 21:00 IV Flush (NS 10 ml) 10 ml PRN PRN IV IV PROTOCOL; Start 03/22/16 at 12:30 Hydralazine HCl (Apresoline) 50 mg Q8 PO Last administered on 03/31/16 06:08; Admin Dose 50 MG; Start 03/23/16 at 14:00 Fluconazole (Diflucan) 100 mg DAILY PO Last administered on 03/31/16 11:51; Admin Dose 100 MG; Start 03/25/16 at 09:00 Metolazone (Zaroxolyn) 5 mg DAILY PO ; Start 03/31/16 at 20:30 Potassium Chloride 20 meq 20 meq BID PO ; Start 03/31/16 at 21:00 Potassium Chloride (KCl 40 MEQ/250 ML NS) 250 ml @ 62.5 mls/hr ONCE ONCE IVPB Last administered on 03/31/16 11:51; Admin Dose 62.5 MLS/HR; Start 03/31/16 at 10:00; Stop 03/31/16 at 13:59 Lactobacillus Acidophilus/ Rhamnosus (Culturelle) 1 cap BID PO Last administered on 03/31/16 11:51; Admin Dose 1 CAP; Start 03/31/16 at 10:00 PHOEBE BANDA NP Mar 31, 2016 13:55
--- NOTE | 2016-03-31 15:59 | CONS ---
Date/Time of Note Date/Time of Note DATE: 03/31/16 TIME: 15:59 Assessment/Plan Assessment/Plan Additional Assessment/Plan Additional Assessment/Plan IMPRESSION: 1. Pneumonia. 2. Pleural effusion. 3. Colitis, much better. 4. Hypokalemia. 5. Status post extubation for respiratory failure. 6. Leukocytosis, resolved. 7. Status post exploratory laparotomy. 8. Anemia. 9. s/p thoracocentesis PLAN: At this point, is to continue present care. Aspiration precautions and encourage p.o. feeding. encourage po feeding PT clinically looks better Consultation Date/Type/Reason Admit Date/Time Feb 24, 2016 at 04:06 Type of Consultation: id Referring Provider: HOWARD LEVY MD 24 HR Interval Summary Constitutional: improved Exam/Review of Systems Vital Signs Vitals Vital Signs Date Time Temp Pulse Resp B/P Pulse Ox O2 Delivery O2 Flow Rate FiO2 03/31/16 12:36 54 03/31/16 11:00 97.5 19 135/59 100 03/31/16 08:27 2.0 03/30/16 22:30 Nasal Cannula Intake and Output 03/30/16 03/30/16 03/31/16 15:00 23:00 07:00 Intake Total 400 ml 100 ml Output Total 700 ml 700 ml Balance -300 ml -600 ml Exam Constitutional: alert, oriented, well developed Psych: nl mood/affect, no complaints Head: atraumatic, normocephalic Eyes: EOMI, PERRL, nl conjunctiva, nl lids, nl sclera ENMT: nl external ears & nose, nl lips & teeth, nl nasal mucosa & septum Neck: non-tender, supple Respiratory: clear to auscultation, normal air movement Cardiovascular: nl pulses, regular rate and rhythm Gastrointestinal: nl liver, spleen, non-tender, soft Musculoskeletal: nl extremities to inspection, nl gait and stance Extremities: normal pulses 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, nl mental status, nl speech, nl strength Skin: nl turgor, No rash or lesions Lymph: nl lymph nodes Results Result Diagram: 03/31/1651 03/31/1651 Results 24 hrs Laboratory Tests Test 03/31/16 06:51 Activated Partial Thromboplast Time 37.2 H Anion Gap 8 Basophils # 0.0 Basophils % 0.2 Blood Morphology Comment Blood Urea Nitrogen 11 Calcium Level 6.8 L Carbon Dioxide Level 28 Chloride Level 101 Creatinine 0.60 Eosinophils # 0.0 Eosinophils % 0.4 Glucose Level 78 Hematocrit 28.2 L Hemoglobin 9.3 L INR International Normalized Ratio 1.29 Lymphocytes # 1.1 Lymphocytes % 15.7 Magnesium Level 1.5 L Mean Corpuscular Hemoglobin 30.1 Mean Corpuscular Hemoglobin Concent 33.1 Mean Corpuscular Volume 90.9 Mean Platelet Volume 10.7 H Monocytes # 0.6 Monocytes % 9.1 Neutrophils # 5.3 Neutrophils % 74.6 Nucleated Red Blood Cells # 0.0 Nucleated Red Blood Cells % 0.0 Platelet Count 178 Potassium Level 2.6 *L Prothrombin Time 16.2 H Prothrombin Time Ratio 1.3 Red Blood Count 3.10 L Red Cell Distribution Width 17.4 H Sodium Level 134 L White Blood Count 7.1 Medications Medications Current Medications Lorazepam (Ativan) 0.5 mg Q6H PRN IV ANXIETY Last administered on 03/29/16 22: 32; Admin Dose 0.5 MG; Start 02/24/16 at 02:00 Ondansetron HCl (Zofran Inj) 4 mg Q6H PRN IV NAUSEA AND/OR VOMITING Last administered on 03/01/16 13:17; Admin Dose 4 MG; Start 02/24/16 at 02:00 Nitroglycerin (Nitroglycerin (Sl Tab) 0.4 Mg) 1 tab Q5M PRN SL CHEST PAIN; Start 02/24/16 at 02:00 Hydralazine HCl (Apresoline) 10 mg Q6H PRN IV SBP > 160 Last administered on 20:57; Admin Dose 10 MG; Start 02/24/16 at 02:00 Labetalol HCl (Labetalol) 10 mg Q6 PRN IV ELEVATED BLOOD PRESSURE; Start at 23:00 Guaifenesin/ Dextromethorphan (Robitussin Dm Liquid Cup) 5 ml Q6 PRN PO COUGH Last administered on 02/27/16 18:12; Admin Dose 5 ML; Start 02/24/16 at 23:00 Nicotine (Nicoderm 21 Mg/ 24hr) 1 patch DAILY TRANSDERM Last administered on 09:35; Admin Dose 1 PATCH; Start 02/26/16 at 09:00 Levothyroxine Sodium (Synthroid) 25 mcg DAILY@06 PO Last administered on 06:08; Admin Dose 25 MCG; Start 02/28/16 at 06:00 Hydromorphone HCl (Dilaudid) 0.5 mg Q3 PRN IV PAIN Last administered on 19:21; Admin Dose 0.5 MG; Start 03/02/16 at 17:00 Heparin Sodium (Porcine) (Heparin (5000 Units/0.5 ml)) 5,000 unit BID SC Last administered on 03/31/16 09:31; Admin Dose 5,000 UNIT; Start 03/02/16 at 21:30 Dicyclomine HCl (Bentyl) 10 mg BID PO Last administered on 03/31/16 09:34; Admin Dose 10 MG; Start 03/15/16 at 21:00 Metronidazole (Flagyl) 500 mg Q8 PO Last administered on 03/31/16 15:38; Admin Dose 500 MG; Start 03/16/16 at 22:00 Verapamil HCl (Verapamil) 5 mg Q6H PRN IV ELEVATED HEART RATE Last administered on 03/17/16 23:45; Admin Dose 5 MG; Start 03/17/16 at 23:30 Zolpidem Tartrate (Ambien) 5 mg HS PRN PO INSOMNIA Last administered on 21:06; Admin Dose 5 MG; Start 03/17/16 at 23:30 Metoprolol Tartrate (Lopressor) 5 mg Q4H PRN IV ELEVATED HEART RATE Last administered on 03/18/16 01:41; Admin Dose 5 MG; Start 03/18/16 at 01:30 Acetaminophen (Tylenol Tab) 650 mg Q6H PRN PO PAIN AND OR ELEVATED TEMP Last administered on 03/19/16 01:18; Admin Dose 650 MG; Start 03/18/16 at 23:30 Aspirin (Aspirin) 81 mg DAILY NGT Last administered on 03/31/16 09:35; Admin Dose 81 MG; Start 03/21/16 at 09:00 Pantoprazole (Protonix Iv) 40 mg DAILY@06 IV Last administered on 03/31/16 06: 08; Admin Dose 40 MG; Start 03/21/16 at 06:00 Collagenase (Santyl) 1 applic DAILY TOP Last administered on 03/31/16 09:36; Admin Dose 1 APPLIC; Start 03/21/16 at 15:00 Metoprolol Tartrate (Lopressor) 25 mg BID PO Last administered on 03/31/16 09: 34; Admin Dose 25 MG; Start 03/22/16 at 21:00 IV Flush (NS 10 ml) 10 ml PRN PRN IV IV PROTOCOL; Start 03/22/16 at 12:30 Hydralazine HCl (Apresoline) 50 mg Q8 PO Last administered on 03/31/16 15:38; Admin Dose 50 MG; Start 03/23/16 at 14:00 Fluconazole (Diflucan) 100 mg DAILY PO Last administered on 03/31/16 11:51; Admin Dose 100 MG; Start 03/25/16 at 09:00 Metolazone (Zaroxolyn) 5 mg DAILY PO ; Start 03/31/16 at 20:30 Potassium Chloride (Klor-Con 20) 20 meq BID PO ; Start 03/31/16 at 21:00 Lactobacillus Acidophilus/ Rhamnosus (Culturelle) 1 cap BID PO Last administered on 03/31/16 11:51; Admin Dose 1 CAP; Start 03/31/16 at 10:00 CHARISSA WILHELM MD Mar 31, 2016 15:59
--- NOTE | 2016-03-31 16:37 | CONS ---
Date/Time of Note Date/Time of Note DATE: 03/31/16 TIME: 16:33 Assessment/Plan Assessment/Plan Chief Complaint/Hosp Course IMPRESSION: 1. Positive troponin, assess significance in the setting of renal failure, status post code blue with respiratory arrest.-Now trended negative 2. Cardiomyopathy with decreased left ventricular ejection fraction/CHF- systolic acute on chronic. last EF being approximately 35% by echo. 3. Abnormal electrocardiogram, assess for acute coronary syndrome. 4. Hypotension-now improved with HTN labile 5. Anemia. 6. Renal failure-improving 7. Hypokalemia s/p repletion 8. Hypernatremia-improved 9. Hemothorax status post VATS with decortication. 10. Status post pulmonary arrest. 11. Anemia. 12. Lower extremity edema. 14. Colitis 15. Resp failure s/p extubation 16.Hypokalemia 17. Pleural effusion s/p thoracentesis Recc: -tele -serial ecg's -Give IV albumin -Cont lasix/metolazine diuresis and follow volume status closely -Continue abx's and f/u cx data -Continue BB/hydralazine and follow labile BP closely -Will consider lexiscan to assess significance of prior positive troponin/ assess for ischemia causing low EF Problems: Consultation Date/Type/Reason Admit Date/Time Feb 24, 2016 at 04:06 Initial Consult Date 03/20/16 Type of Consultation: cardiology Reason for Consultation positive troponin/cardiomyopathy Referring Provider: HOWARD LEVY MD Exam/Review of Systems Vital Signs Vitals Vital Signs Date Time Temp Pulse Resp B/P Pulse Ox O2 Delivery O2 Flow Rate FiO2 03/31/16 15:00 97.9 61 19 162/67 100 03/31/16 08:27 2.0 03/30/16 22:30 Nasal Cannula Intake and Output 03/30/16 03/30/16 03/31/16 15:00 23:00 07:00 Intake Total 400 ml 100 ml Output Total 700 ml 700 ml Balance -300 ml -600 ml Exam Review of Systems: CONSTITUTIONAL: No fevers, chills. PULMONARY: No sob CARDIOVASCULAR: No chest pain/palpitations GASTROINTESTINAL: No nausea/vomiting. GENITOURINARY: No hematuria/dysuria. MUSCULOSKELETAL: No myagias/arthalgias. PSYCHIATRIC: The patient denies depression. NEUROLOGIC: lethargic Constitutional: alert Psych: no complaints Head: normocephalic ENMT: mucosa pink and moist Neck: jvd (9 cm water), supple Respiratory: diminished breath sounds (at bases/B) Cardiovascular: regular rate and rhythm Gastrointestinal: non-tender, soft Musculoskeletal: muscle tone (normal) Extremities: pitting pedal edema (Bilateral) Neurological: other (No focal deficits) Results Result Diagram: 03/31/16 0651 03/31/16 0651 Results 24 hrs Laboratory Tests Test 03/31/16 06:51 Activated Partial Thromboplast Time 37.2 H Anion Gap 8 Basophils # 0.0 Basophils % 0.2 Blood Morphology Comment Blood Urea Nitrogen 11 Calcium Level 6.8 L Carbon Dioxide Level 28 Chloride Level 101 Creatinine 0.60 Eosinophils # 0.0 Eosinophils % 0.4 Glucose Level 78 Hematocrit 28.2 L Hemoglobin 9.3 L INR International Normalized Ratio 1.29 Lymphocytes # 1.1 Lymphocytes % 15.7 Magnesium Level 1.5 L Mean Corpuscular Hemoglobin 30.1 Mean Corpuscular Hemoglobin Concent 33.1 Mean Corpuscular Volume 90.9 Mean Platelet Volume 10.7 H Monocytes # 0.6 Monocytes % 9.1 Neutrophils # 5.3 Neutrophils % 74.6 Nucleated Red Blood Cells # 0.0 Nucleated Red Blood Cells % 0.0 Platelet Count 178 Potassium Level 2.6 *L Prothrombin Time 16.2 H Prothrombin Time Ratio 1.3 Red Blood Count 3.10 L Red Cell Distribution Width 17.4 H Sodium Level 134 L White Blood Count 7.1 Medications Medications Current Medications Lorazepam (Ativan) 0.5 mg Q6H PRN IV ANXIETY Last administered on 03/29/16 22: 32; Admin Dose 0.5 MG; Start 02/24/16 at 02:00 Ondansetron HCl (Zofran Inj) 4 mg Q6H PRN IV NAUSEA AND/OR VOMITING Last administered on 03/01/16 13:17; Admin Dose 4 MG; Start 02/24/16 at 02:00 Nitroglycerin (Nitroglycerin (Sl Tab) 0.4 Mg) 1 tab Q5M PRN SL CHEST PAIN; Start 02/24/16 at 02:00 Hydralazine HCl (Apresoline) 10 mg Q6H PRN IV SBP > 160 Last administered on 20:57; Admin Dose 10 MG; Start 02/24/16 at 02:00 Labetalol HCl (Labetalol) 10 mg Q6 PRN IV ELEVATED BLOOD PRESSURE; Start at 23:00 Guaifenesin/ Dextromethorphan (Robitussin Dm Liquid Cup) 5 ml Q6 PRN PO COUGH Last administered on 02/27/16 18:12; Admin Dose 5 ML; Start 02/24/16 at 23:00 Nicotine (Nicoderm 21 Mg/ 24hr) 1 patch DAILY TRANSDERM Last administered on 09:35; Admin Dose 1 PATCH; Start 02/26/16 at 09:00 Levothyroxine Sodium (Synthroid) 25 mcg DAILY@06 PO Last administered on 06:08; Admin Dose 25 MCG; Start 02/28/16 at 06:00 Hydromorphone HCl (Dilaudid) 0.5 mg Q3 PRN IV PAIN Last administered on 19:21; Admin Dose 0.5 MG; Start 03/02/16 at 17:00 Heparin Sodium (Porcine) (Heparin (5000 Units/0.5 ml)) 5,000 unit BID SC Last administered on 03/31/16 09:31; Admin Dose 5,000 UNIT; Start 03/02/16 at 21:30 Dicyclomine HCl (Bentyl) 10 mg BID PO Last administered on 03/31/16 09:34; Admin Dose 10 MG; Start 03/15/16 at 21:00 Metronidazole (Flagyl) 500 mg Q8 PO Last administered on 03/31/16 15:38; Admin Dose 500 MG; Start 03/16/16 at 22:00 Verapamil HCl (Verapamil) 5 mg Q6H PRN IV ELEVATED HEART RATE Last administered on 03/17/16 23:45; Admin Dose 5 MG; Start 03/17/16 at 23:30 Zolpidem Tartrate (Ambien) 5 mg HS PRN PO INSOMNIA Last administered on 21:06; Admin Dose 5 MG; Start 03/17/16 at 23:30 Metoprolol Tartrate (Lopressor) 5 mg Q4H PRN IV ELEVATED HEART RATE Last administered on 03/18/16 01:41; Admin Dose 5 MG; Start 03/18/16 at 01:30 Acetaminophen (Tylenol Tab) 650 mg Q6H PRN PO PAIN AND OR ELEVATED TEMP Last administered on 03/19/16 01:18; Admin Dose 650 MG; Start 03/18/16 at 23:30 Aspirin (Aspirin) 81 mg DAILY NGT Last administered on 03/31/16 09:35; Admin Dose 81 MG; Start 03/21/16 at 09:00 Pantoprazole (Protonix Iv) 40 mg DAILY@06 IV Last administered on 03/31/16 06: 08; Admin Dose 40 MG; Start 03/21/16 at 06:00 Collagenase (Santyl) 1 applic DAILY TOP Last administered on 03/31/16 09:36; Admin Dose 1 APPLIC; Start 03/21/16 at 15:00 Metoprolol Tartrate (Lopressor) 25 mg BID PO Last administered on 03/31/16 09: 34; Admin Dose 25 MG; Start 03/22/16 at 21:00 IV Flush (NS 10 ml) 10 ml PRN PRN IV IV PROTOCOL; Start 03/22/16 at 12:30 Hydralazine HCl (Apresoline) 50 mg Q8 PO Last administered on 03/31/16 15:38; Admin Dose 50 MG; Start 03/23/16 at 14:00 Fluconazole (Diflucan) 100 mg DAILY PO Last administered on 03/31/16 11:51; Admin Dose 100 MG; Start 03/25/16 at 09:00 Metolazone (Zaroxolyn) 5 mg DAILY PO ; Start 03/31/16 at 20:30 Potassium Chloride (Klor-Con 20) 20 meq BID PO ; Start 03/31/16 at 21:00 Lactobacillus Acidophilus/ Rhamnosus (Culturelle) 1 cap BID PO Last administered on 03/31/16 11:51; Admin Dose 1 CAP; Start 03/31/16 at 10:00 KORINA OCONNOR Mar 31, 2016 16:37
[2016-03-31] MEDS ORDERED: ALBUMIN HUMAN 25% 50 ML IV ONE (17:00)
--- NOTE | 2016-03-31 18:09 | RADRPT ---
PROCEDURE: Video-fluoroscopy swallowing study. CLINICAL INDICATION: Dysphagia. TECHNIQUE: Fluoroscopic guided video swallowing study was done in conjunction with the speech ther apist. The study was confined to the oral, pharyngeal, and cervical phases of the swallowing mechani sm. 3.9 minutes of fluoroscopy time was used. COMPARISON: No prior study is available for comparison. FINDINGS: There is silent aspiration during swallowing nectar-thick liquid by straw. Silent aspiration is als o present. A. IMPRESSION: 1. Abnormal study with silent aspiration 2. Please refer to the speech therapist's recommendations for future feedings. RPTAT: QQ .Carter Field MD, MD Date Time Electronically viewed and signed by .Carter Field MD, MD on 03/31/2016 18:08 .R/
--- NOTE | 2016-03-31 20:07 | PN ---
Date/Time of Note Date/Time of Note DATE: 03/30/16 TIME: 20:06 Assessment/Plan Lines/Catheters IV Catheter Type (from [facility]): PICC Line Francois in Place (from [facility]): Yes Assessment/Plan Chief Complaint/Hosp Course 1. Abdominal pain, with CT diagnosis of pancolitis, with significant leukocytosis and bandemia. s/p Lap exploration and only small mid transverse with min mottling. Bowel function. -Antibiotics per ID -Judicious fluid management 2. Sepsis, multifactorial (pancolitis ? ischemic, urinary tract infection, pulmonary infiltrates, bacteremia). Leukocytosis ? etiology (aspiration vs other). Improved again. -Antibiotic therapy. -Judicious fluid management. -Close monitoring. 3. Renal insufficiency secondary to sepsis. Improved -Continue judicious fluid management. -Avoid nephrotoxic agents as possible. 4. Anemia, with recent hemothorax requiring VATS decortication. -Transfuse as needed. 5. Hypoalbuminemia. -Eventual nutritional optimization. 6. Hypernatremia -Correct with fluid management. 7. Hypertension. -Nutritional and medication optimization. 8. Hypothyroidism. -Replace hormone. 9. Hemopneumothorax, status post VATS. CT removed -followed by CT surgery. 10. Cervical spine injury, being maintained in brace by neurosurgery. 11. Respiratory distress/code s/p re-intubation. ? Aspiration PNA. Extubated again. -pulmonary toilette -abx Thank you, Late entry 03/30 Problems: Subjective 24 Hr Interval Summary No f/c. No nausea or vomiting. Bowel function. Min bloated. No cough. No sz. No rash. No abdominal pain. No chest pain or shortness of breath. Exam/Review of Systems Vital Signs Vitals Vital Signs Date Time Temp Pulse Resp B/P Pulse Ox O2 Delivery O2 Flow Rate FiO2 03/31/16 17:08 68 03/31/16 15:00 97.9 19 162/67 100 03/31/16 08:27 2.0 03/31/16 07:50 Nasal Cannula Intake and Output 03/30/16 03/30/16 03/31/16 15:00 23:00 07:00 Intake Total 400 ml 100 ml Output Total 700 ml 700 ml Balance -300 ml -600 ml Exam Free Text/Dictation GENERAL: NAD. Responsive HEENT: Pupils equal, reactive. No scleral icterus. Mucous membranes are somewhat dry. NECK: No crepitus. No JVD. PULMONARY: Normal respiratory effort ABDOMEN: No rebound/guarding/rigidity. Distended. EXTREMITIES: Trace edema. VASCULAR: Capillary refill is 2 seconds. NEUROLOGIC: Responsive SKIN: No rashes/jaundice. PSYCH: normal affect Results Result Diagram: 03/31/16 0651 03/31/16 0651 CHRISTIANO JENNINGS MD Mar 31, 2016 20:06
--- NOTE | 2016-03-31 20:07 | PN ---
Date/Time of Note Date/Time of Note DATE: 03/31/16 TIME: 20:07 Assessment/Plan Lines/Catheters IV Catheter Type (from [facility]): PICC Line Francois in Place (from [facility]): Yes Assessment/Plan Chief Complaint/Hosp Course 1. Abdominal pain, with CT diagnosis of pancolitis, with significant leukocytosis and bandemia. s/p Lap exploration and only small mid transverse with min mottling. Bowel function. -Antibiotics per ID -Judicious fluid management 2. Sepsis, multifactorial (pancolitis ? ischemic, urinary tract infection, pulmonary infiltrates, bacteremia). Leukocytosis ? etiology (aspiration vs other). Improved again. -Antibiotic therapy. -Judicious fluid management. -Close monitoring. 3. Renal insufficiency secondary to sepsis. Improved -Continue judicious fluid management. -Avoid nephrotoxic agents as possible. 4. Anemia, with recent hemothorax requiring VATS decortication. -Transfuse as needed. 5. Hypoalbuminemia. -Eventual nutritional optimization. 6. Hypernatremia -Correct with fluid management. 7. Hypertension. -Nutritional and medication optimization. 8. Hypothyroidism. -Replace hormone. 9. Hemopneumothorax, status post VATS. CT removed -followed by CT surgery. 10. Cervical spine injury, being maintained in brace by neurosurgery. 11. Respiratory distress/code s/p re-intubation. ? Aspiration PNA. Extubated again. -pulmonary toilette -abx Thank you, Problems: Subjective 24 Hr Interval Summary No f/c. No nausea or vomiting. Bowel function. Min bloated. No cough. No sz. No rash. No abdominal pain. No chest pain or shortness of breath. Exam/Review of Systems Vital Signs Vitals Vital Signs Date Time Temp Pulse Resp B/P Pulse Ox O2 Delivery O2 Flow Rate FiO2 03/31/16 17:08 68 03/31/16 15:00 97.9 19 162/67 100 03/31/16 08:27 2.0 03/31/16 07:50 Nasal Cannula Intake and Output 03/30/16 03/30/16 03/31/16 15:00 23:00 07:00 Intake Total 400 ml 100 ml Output Total 700 ml 700 ml Balance -300 ml -600 ml Exam Free Text/Dictation GENERAL: NAD. Responsive HEENT: Pupils equal, reactive. No scleral icterus. Mucous membranes are somewhat dry. NECK: No crepitus. No JVD. PULMONARY: Normal respiratory effort ABDOMEN: No rebound/guarding/rigidity. Distended. EXTREMITIES: Trace edema. VASCULAR: Capillary refill is 2 seconds. NEUROLOGIC: Responsive SKIN: No rashes/jaundice. PSYCH: normal affect Results Result Diagram: 03/31/16 0651 03/31/16 0651 CHRISTIANO JENNINGS MD Mar 31, 2016 20:07
[2016-03-31] MEDS: POTASSIUM CHLORIDE (SR) 20 MEQ TAB PO SCH (21:49)
[2016-03-31] MEDS: LORAZEPAM 2 MG INJ IV PRN (21:51)
[2016-03-31] MEDS: METOLAZONE 5 MG TAB PO SCH (21:58)
[2016-04-01] VITALS (14 sets, daily range): BP systolic 103–142; BP diastolic 49–72; PULSE 52–83; RESP 15–20
[2016-04-01] MEDS: HYDROmorphONE 1 MG/ML SYG IV PRN (00:19)
[2016-04-01] MEDS: PANTOPRAZOLE 40 MG INJ IV SCH (06:52)
[2016-04-01] MEDS: metroNIDAZOLE 500 MG TAB PO SCH ×3 (06:53→21:51)
[2016-04-01] MEDS: FUROSEMIDE 40 MG TAB PO SCH (06:53)
[2016-04-01] MEDS: LEVOTHYROXINE 25 MCG TAB PO SCH (06:53)
[2016-04-01 07:52] LABS: INR 1.21; PROTIME 15.4 Sec (12.2-14.2); PT RATIO 1.2
[2016-04-01 07:53] LABS: PARTIAL THROMBOPLASTIN TIME 37.2 Sec (25.0-35.0)
[2016-04-01 08:13] LABS: CALCIUM 6.7 mg/dl (8.4-10.2); CREATININE 0.52 mg/dl (0.44-1.00)
[2016-04-01 08:51] LABS: POTASSIUM 2.7 mmol/L (3.5-5.1)
[2016-04-01] MEDS: ASPIRIN 81 MG TAB NGT SCH (09:30)
[2016-04-01] MEDS: DICYCLOMINE 10 MG CAP PO SCH ×2 (09:30→21:51)
[2016-04-01] MEDS: POTASSIUM CHLORIDE (SR) 20 MEQ TAB PO SCH ×2 (09:30→21:51)
[2016-04-01] MEDS: LACTOBACILLUS RHAMNOSUS CAP PO SCH ×2 (09:30→21:51)
[2016-04-01] MEDS: NICOTINE (21 MG/24 HR) PATCH TRANSDERM SCH (09:34)
[2016-04-01] MEDS: METOLAZONE 5 MG TAB PO SCH (09:34)
[2016-04-01] MEDS: METOPROLOL 25 MG TAB PO SCH ×2 (09:34→21:00)
[2016-04-01] MEDS: HEPARIN 5,000 UNIT/0.5 ML SYG SC SCH ×2 (09:47→21:54)
[2016-04-01] MEDS: FLUCONAZOLE 100 MG TAB PO SCH (10:53)
[2016-04-01] MEDS: COLLAGENASE 30 GM TUBE TOP SCH (10:54)
--- NOTE | 2016-04-01 11:21 | PN ---
Date/Time of Note Date/Time of Note DATE: 04/01/16 TIME: 11:14 Assessment/Plan VTE Prophylaxis VTE Prophylaxis Intervention: heparin Lines/Catheters IV Catheter Type (from Nrs): PICC Line Central line still needed: Yes (IV access) Urinary Cath still in place: Yes Reason Cath still needed: urinary retention Assessment/Plan Assessment/Plan 1. Sepsis. 2. Acute respiratory failure, intubated on ventilator, possible aspiratio pNA s /p Extubation on 03/24/16 3. Bilateral pleural effusions status post thoracentesis x 3 , 03/18,03/24 and 4. Severe pancolitis, patient remains on coverage with Dificid, oral vancomycin and Flagyl. 5. Left lower extremity cellulitis, resolving. 6. Status post Ann glabrata urinary tract infection. 7. Status post cervical spine injury. 8. Status post diagnostic laparoscopy on 03/01/2016. 9. Hypokalemia and Hypomagnesemia Plan: IV abx, ID following s/p Barium swallow study which was worried about aspiration, but family wants to keep her on Po diet, she is currently tolerating Po diet KCL 40mEq IV x 1 now- continue KDur to 20meQ PO BID s/p Thoracentesis 550cc drained, Post procedure X ray negative for pneumothorax PICC line care, cano catheter reinserted due to urinary retention Family decided for DNR, regarding Hospice care they want to wait Heparin for DVT prophylaxis out of bed to chair TID Family wants to have acute rehab evaluation,- ordered Subjective 24 Hr Interval Summary Free Text/Dictation pt has been Lasix and Metolazone, K 2.7, mag normal, breathing better Exam/Review of Systems Vital Signs Vitals Vital Signs Date Time Temp Pulse Resp B/P Pulse Ox O2 Delivery O2 Flow Rate FiO2 04/01/16 08:22 83 04/01/16 07:47 97.7 18 133/58 99 03/31/16 21:45 Nasal Cannula 4.0 Intake and Output 03/31/16 03/31/16 04/01/16 15:00 23:00 07:00 Intake Total 240 ml 250 ml Output Total 750 ml 900 ml Balance -510 ml -650 ml Exam alert, awake, mild to moderat resp distress bilateral basilar rales , Decreased BS to RML and FLL, + wheezing S1 S2 RRR Soft, NT 1 + edema, + cano catheter due to urinary retention Results Result Diagram: 03/31/16 0651 04/01/16 0607 Results 24 hrs Laboratory Tests Test 04/01/16 06:07 Activated Partial Thromboplast Time 37.2 H Anion Gap 8 Blood Urea Nitrogen 9 Calcium Level 6.7 L Carbon Dioxide Level 28 Chloride Level 101 Creatinine 0.52 Glucose Level 78 INR International Normalized Ratio 1.21 Magnesium Level 1.8 Potassium Level 2.7 *L Prothrombin Time 15.4 H Prothrombin Time Ratio 1.2 Sodium Level 134 L Medications Medications Current Medications Lorazepam (Ativan) 0.5 mg Q6H PRN IV ANXIETY Last administered on 03/31/16 21: 51; Admin Dose 0.5 MG; Start 02/24/16 at 02:00 Ondansetron HCl (Zofran Inj) 4 mg Q6H PRN IV NAUSEA AND/OR VOMITING Last administered on 03/01/16 13:17; Admin Dose 4 MG; Start 02/24/16 at 02:00 Nitroglycerin (Nitroglycerin (Sl Tab) 0.4 Mg) 1 tab Q5M PRN SL CHEST PAIN; Start 02/24/16 at 02:00 Hydralazine HCl (Apresoline) 10 mg Q6H PRN IV SBP > 160 Last administered on 20:57; Admin Dose 10 MG; Start 02/24/16 at 02:00 Labetalol HCl (Labetalol) 10 mg Q6 PRN IV ELEVATED BLOOD PRESSURE; Start at 23:00 Guaifenesin/ Dextromethorphan (Robitussin Dm Liquid Cup) 5 ml Q6 PRN PO COUGH Last administered on 02/27/16 18:12; Admin Dose 5 ML; Start 02/24/16 at 23:00 Nicotine (Nicoderm 21 Mg/ 24hr) 1 patch DAILY TRANSDERM Last administered on 09:34; Admin Dose 1 PATCH; Start 02/26/16 at 09:00 Levothyroxine Sodium (Synthroid) 25 mcg DAILY@06 PO Last administered on 06:53; Admin Dose 25 MCG; Start 02/28/16 at 06:00 Hydromorphone HCl (Dilaudid) 0.5 mg Q3 PRN IV PAIN Last administered on 00:19; Admin Dose 0.5 MG; Start 03/02/16 at 17:00 Heparin Sodium (Porcine) (Heparin (5000 Units/0.5 ml)) 5,000 unit BID SC Last administered on 04/01/16 09:47; Admin Dose 5,000 UNIT; Start 03/02/16 at 21:30 Dicyclomine HCl (Bentyl) 10 mg BID PO Last administered on 04/01/16 09:30; Admin Dose 10 MG; Start 03/15/16 at 21:00 Metronidazole (Flagyl) 500 mg Q8 PO Last administered on 04/01/16 06:53; Admin Dose 500 MG; Start 03/16/16 at 22:00 Verapamil HCl (Verapamil) 5 mg Q6H PRN IV ELEVATED HEART RATE Last administered on 03/17/16 23:45; Admin Dose 5 MG; Start 03/17/16 at 23:30 Zolpidem Tartrate (Ambien) 5 mg HS PRN PO INSOMNIA Last administered on 21:06; Admin Dose 5 MG; Start 03/17/16 at 23:30 Metoprolol Tartrate (Lopressor) 5 mg Q4H PRN IV ELEVATED HEART RATE Last administered on 03/18/16 01:41; Admin Dose 5 MG; Start 03/18/16 at 01:30 Acetaminophen (Tylenol Tab) 650 mg Q6H PRN PO PAIN AND OR ELEVATED TEMP Last administered on 03/19/16 01:18; Admin Dose 650 MG; Start 03/18/16 at 23:30 Aspirin (Aspirin) 81 mg DAILY NGT Last administered on 04/01/16 09:30; Admin Dose 81 MG; Start 03/21/16 at 09:00 Pantoprazole (Protonix Iv) 40 mg DAILY@06 IV Last administered on 04/01/16 06: 52; Admin Dose 40 MG; Start 03/21/16 at 06:00 Collagenase (Santyl) 1 applic DAILY TOP Last administered on 04/01/16 10:54; Admin Dose 1 APPLIC; Start 03/21/16 at 15:00 Metoprolol Tartrate (Lopressor) 25 mg BID PO Last administered on 04/01/16 09: 34; Admin Dose 25 MG; Start 03/22/16 at 21:00 IV Flush (NS 10 ml) 10 ml PRN PRN IV IV PROTOCOL; Start 03/22/16 at 12:30 Hydralazine HCl (Apresoline) 50 mg Q8 PO Last administered on 04/01/16 06:52; Admin Dose 50 MG; Start 03/23/16 at 14:00 Fluconazole (Diflucan) 100 mg DAILY PO Last administered on 04/01/16 10:53; Admin Dose 100 MG; Start 03/25/16 at 09:00 Metolazone (Zaroxolyn) 5 mg DAILY PO Last administered on 04/01/16 09:34; Admin Dose 5 MG; Start 03/31/16 at 20:30 Potassium Chloride (Klor-Con 20) 20 meq BID PO Last administered on 04/01/16 09:30; Admin Dose 20 MEQ; Start 03/31/16 at 21:00 Lactobacillus Acidophilus/ Rhamnosus 1 cap 1 cap BID PO Last administered on 09:30; Admin Dose 1 CAP; Start 03/31/16 at 10:00 Potassium Chloride (KCl 40 MEQ/250 ML NS) 250 ml @ 62.5 mls/hr ONCE ONCE IVPB ; Start 04/01/16 at 11:30; Stop 04/01/16 at 15:29; Status UNHOWARD RAI MD Apr 01, 2016 11:21
[2016-04-01] MEDS ORDERED: POTASSIUM CHLORIDE 250 ML IVPB ONE (12:30)
--- NOTE | 2016-04-01 14:23 | CONS ---
Date/Time of Note Date/Time of Note DATE: 04/01/16 TIME: 14:20 Assessment/Plan Assessment/Plan Chief Complaint/Hosp Course IMPRESSION: 1. Positive troponin, assess significance in the setting of renal failure, status post code blue with respiratory arrest.-Now trended negative 2. Cardiomyopathy with decreased left ventricular ejection fraction/CHF- systolic acute on chronic. last EF being approximately 35% by echo. 3. Abnormal electrocardiogram, assess for acute coronary syndrome. 4. Hypotension-now improved with HTN labile 5. Anemia. 6. Renal failure-improving 7. Hypokalemia s/p repletion 8. Hypernatremia-improved 9. Hemothorax status post VATS with decortication. 10. Status post pulmonary arrest. 11. Anemia. 12. Lower extremity edema. 14. Colitis 15. Resp failure s/p extubation 16.Hypokalemia 17. Pleural effusion s/p thoracentesis Recc: -tele -serial ecg's -S/P infusionof IV albumin -Increase lasix/metolazine diuresis and follow volume status closely -Continue abx's and f/u cx data -Continue BB/hydralazine and follow labile BP closely -Will consider lexiscan to assess significance of prior positive troponin/ assess for ischemia causing low EF Problems: Consultation Date/Type/Reason Admit Date/Time Feb 24, 2016 at 04:06 Initial Consult Date 03/20/16 Type of Consultation: cardiology Reason for Consultation positive troponin Referring Provider: HOWARD LEVY MD Exam/Review of Systems Vital Signs Vitals Vital Signs Date Time Temp Pulse Resp B/P Pulse Ox O2 Delivery O2 Flow Rate FiO2 04/01/16 12:23 55 04/01/16 11:49 98.1 18 135/63 100 03/31/16 21:45 Nasal Cannula 4.0 Intake and Output 03/31/16 03/31/16 04/01/16 15:00 23:00 07:00 Intake Total 240 ml 250 ml Output Total 750 ml 900 ml Balance -510 ml -650 ml Exam Review of Systems: CONSTITUTIONAL: No fevers, chills. PULMONARY: No sob CARDIOVASCULAR: No chest pain/palpitations GASTROINTESTINAL: No nausea/vomiting. GENITOURINARY: No hematuria/dysuria. MUSCULOSKELETAL: No myagias/arthalgias. PSYCHIATRIC: The patient denies depression. NEUROLOGIC: lethargic Constitutional: alert Psych: no complaints Head: normocephalic ENMT: mucosa pink and moist Neck: jvd (9 cm water), supple Respiratory: diminished breath sounds (at bases/B) Cardiovascular: regular rate and rhythm Gastrointestinal: non-tender, soft Musculoskeletal: muscle tone (normal) Extremities: pitting pedal edema (BIlateral) Neurological: lethargic Results Result Diagram: 03/31/16 0651 04/01/16 0607 Results 24 hrs Laboratory Tests Test 04/01/16 06:07 Activated Partial Thromboplast Time 37.2 H Anion Gap 8 Blood Urea Nitrogen 9 Calcium Level 6.7 L Carbon Dioxide Level 28 Chloride Level 101 Creatinine 0.52 Glucose Level 78 INR International Normalized Ratio 1.21 Magnesium Level 1.8 Potassium Level 2.7 *L Prothrombin Time 15.4 H Prothrombin Time Ratio 1.2 Sodium Level 134 L Medications Medications Current Medications Lorazepam (Ativan) 0.5 mg Q6H PRN IV ANXIETY Last administered on 03/31/16 21: 51; Admin Dose 0.5 MG; Start 02/24/16 at 02:00 Ondansetron HCl (Zofran Inj) 4 mg Q6H PRN IV NAUSEA AND/OR VOMITING Last administered on 03/01/16 13:17; Admin Dose 4 MG; Start 02/24/16 at 02:00 Nitroglycerin (Nitroglycerin (Sl Tab) 0.4 Mg) 1 tab Q5M PRN SL CHEST PAIN; Start 02/24/16 at 02:00 Hydralazine HCl (Apresoline) 10 mg Q6H PRN IV SBP > 160 Last administered on 20:57; Admin Dose 10 MG; Start 02/24/16 at 02:00 Labetalol HCl (Labetalol) 10 mg Q6 PRN IV ELEVATED BLOOD PRESSURE; Start at 23:00 Guaifenesin/ Dextromethorphan (Robitussin Dm Liquid Cup) 5 ml Q6 PRN PO COUGH Last administered on 02/27/16 18:12; Admin Dose 5 ML; Start 02/24/16 at 23:00 Nicotine (Nicoderm 21 Mg/ 24hr) 1 patch DAILY TRANSDERM Last administered on 09:34; Admin Dose 1 PATCH; Start 02/26/16 at 09:00 Levothyroxine Sodium (Synthroid) 25 mcg DAILY@06 PO Last administered on 06:53; Admin Dose 25 MCG; Start 02/28/16 at 06:00 Hydromorphone HCl (Dilaudid) 0.5 mg Q3 PRN IV PAIN Last administered on 00:19; Admin Dose 0.5 MG; Start 03/02/16 at 17:00 Heparin Sodium (Porcine) (Heparin (5000 Units/0.5 ml)) 5,000 unit BID SC Last administered on 04/01/16 09:47; Admin Dose 5,000 UNIT; Start 03/02/16 at 21:30 Dicyclomine HCl (Bentyl) 10 mg BID PO Last administered on 04/01/16 09:30; Admin Dose 10 MG; Start 03/15/16 at 21:00 Metronidazole (Flagyl) 500 mg Q8 PO Last administered on 04/01/16 06:53; Admin Dose 500 MG; Start 03/16/16 at 22:00 Verapamil HCl (Verapamil) 5 mg Q6H PRN IV ELEVATED HEART RATE Last administered on 03/17/16 23:45; Admin Dose 5 MG; Start 03/17/16 at 23:30 Zolpidem Tartrate (Ambien) 5 mg HS PRN PO INSOMNIA Last administered on 21:06; Admin Dose 5 MG; Start 03/17/16 at 23:30 Metoprolol Tartrate (Lopressor) 5 mg Q4H PRN IV ELEVATED HEART RATE Last administered on 03/18/16 01:41; Admin Dose 5 MG; Start 03/18/16 at 01:30 Acetaminophen (Tylenol Tab) 650 mg Q6H PRN PO PAIN AND OR ELEVATED TEMP Last administered on 03/19/16 01:18; Admin Dose 650 MG; Start 03/18/16 at 23:30 Aspirin (Aspirin) 81 mg DAILY NGT Last administered on 04/01/16 09:30; Admin Dose 81 MG; Start 03/21/16 at 09:00 Pantoprazole (Protonix Iv) 40 mg DAILY@06 IV Last administered on 04/01/16 06: 52; Admin Dose 40 MG; Start 03/21/16 at 06:00 Collagenase (Santyl) 1 applic DAILY TOP Last administered on 04/01/16 10:54; Admin Dose 1 APPLIC; Start 03/21/16 at 15:00 Metoprolol Tartrate (Lopressor) 25 mg BID PO Last administered on 04/01/16 09: 34; Admin Dose 25 MG; Start 03/22/16 at 21:00 IV Flush (NS 10 ml) 10 ml PRN PRN IV IV PROTOCOL; Start 03/22/16 at 12:30 Hydralazine HCl (Apresoline) 50 mg Q8 PO Last administered on 04/01/16 06:52; Admin Dose 50 MG; Start 03/23/16 at 14:00 Fluconazole (Diflucan) 100 mg DAILY PO Last administered on 04/01/16 10:53; Admin Dose 100 MG; Start 03/25/16 at 09:00 Metolazone (Zaroxolyn) 5 mg DAILY PO Last administered on 04/01/16 09:34; Admin Dose 5 MG; Start 03/31/16 at 20:30 Potassium Chloride (Klor-Con 20) 20 meq BID PO Last administered on 04/01/16 09:30; Admin Dose 20 MEQ; Start 03/31/16 at 21:00 Lactobacillus Acidophilus/ Rhamnosus 1 cap 1 cap BID PO Last administered on 09:30; Admin Dose 1 CAP; Start 03/31/16 at 10:00 Potassium Chloride (KCl 40 MEQ/250 ML NS) 250 ml @ 62.5 mls/hr ONCE ONCE IVPB ; Start 04/01/16 at 12:30; Stop 04/01/16 at 16:29 KORINA OCONNOR Apr 01, 2016 14:23
[2016-04-01] MEDS: FUROSEMIDE 40 MG INJ IV SCH (18:12)
--- NOTE | 2016-04-01 19:50 | PN ---
Date/Time of Note Date/Time of Note DATE: 04/01/16 TIME: 19:44 Assessment/Plan Lines/Catheters IV Catheter Type (from [facility]): PICC Line Francois in Place (from [facility]): Yes Assessment/Plan Chief Complaint/Hosp Course 1. Abdominal pain, with CT diagnosis of pancolitis, with significant leukocytosis and bandemia. s/p Lap exploration and only small mid transverse with min mottling. Bowel function. -Antibiotics per ID -Judicious fluid management 2. Sepsis, multifactorial (pancolitis ? ischemic, urinary tract infection, pulmonary infiltrates, bacteremia). Leukocytosis ? etiology (aspiration vs other). Improved again. -Antibiotic therapy. -Judicious fluid management. -Close monitoring. 3. Renal insufficiency secondary to sepsis. Improved -Continue judicious fluid management. -Avoid nephrotoxic agents as possible. 4. Anemia, with recent hemothorax requiring VATS decortication. -Transfuse as needed. 5. Hypoalbuminemia. -Eventual nutritional optimization. 6. Hypernatremia -Correct with fluid management. 7. Hypertension. -Nutritional and medication optimization. 8. Hypothyroidism. -Replace hormone. 9. Hemopneumothorax, status post VATS. CT removed -followed by CT surgery. 10. Cervical spine injury, being maintained in brace by neurosurgery. 11. Respiratory distress/code s/p re-intubation. ? Aspiration PNA. Extubated again. -pulmonary toilette -abx Thank you, Problems: Subjective 24 Hr Interval Summary No f/c. No nausea or vomiting. Bowel function. Min bloated. No cough. No sz. No rash. No abdominal pain. No chest pain or shortness of breath. Exam/Review of Systems Vital Signs Vitals Vital Signs Date Time Temp Pulse Resp B/P Pulse Ox O2 Delivery O2 Flow Rate FiO2 04/01/16 17:01 73 04/01/16 15:56 97.8 18 136/58 100 04/01/16 08:00 Nasal Cannula 2.0 Intake and Output 03/31/16 03/31/16 04/01/16 15:00 23:00 07:00 Intake Total 240 ml 250 ml Output Total 750 ml 900 ml Balance -510 ml -650 ml Exam Free Text/Dictation GENERAL: NAD. Responsive HEENT: Pupils equal, reactive. No scleral icterus. Mucous membranes are somewhat dry. NECK: No crepitus. No JVD. PULMONARY: Normal respiratory effort ABDOMEN: No rebound/guarding/rigidity. Distended. EXTREMITIES: Trace edema. VASCULAR: Capillary refill is 2 seconds. NEUROLOGIC: Responsive SKIN: No rashes/jaundice. PSYCH: normal affect Results Result Diagram: 03/31/16 0651 04/01/16 0607 CHRISTIANO JENNINGS MD Apr 01, 2016 19:50
--- NOTE | 2016-04-01 20:08 | CONS ---
Date/Time of Note Date/Time of Note DATE: 04/01/16 TIME: 20:07 Assessment/Plan Assessment/Plan Chief Complaint/Hosp Course SUBJECTIVE: No acute changes. The patient is awake, looks comfortable, no fevers ANTIMICROBIALS: Flagyl INDWELLINGS: PICC line, Francois catheter. PHYSICAL EXAMINATION: GENERAL: This is a fragile, elderly woman who is in no distress. HEENT: Head atraumatic, normocephalic. Sclerae anicteric. Buccal mucosa pink. NECK: Supple. CHEST: Rise symmetrical. Breath sounds diminished to bases. HEART: S1, S2. ABDOMEN: Distended, bowel tones present. EXTREMITIES: Bilateral LE edema. + anasarca ASSESSMENT: 1. S/p sepsis. 2. S/p pneumonia. 3. Status post acute respiratory failure. 4. Left lower extremity cellulitis, resolving. 5. Pancolitis. 6. Status post fungal urinary tract infection. 7. Large pleural effusion, s/p thoracentesis 03/18, 03/24, 03/30 8. Distended abdomen==> small am-t of ascites per US PLAN: The patient remains stable. Continue present care, PT, aspiration precautions DW staff Problems: Consultation Date/Type/Reason Admit Date/Time Feb 24, 2016 at 04:06 Type of Consultation: ID Referring Provider: HOWARD LEVY MD Exam/Review of Systems Vital Signs Vitals Vital Signs Date Time Temp Pulse Resp B/P Pulse Ox O2 Delivery O2 Flow Rate FiO2 04/01/16 17:01 73 04/01/16 15:56 97.8 18 136/58 100 04/01/16 08:00 Nasal Cannula 2.0 Intake and Output 03/31/16 03/31/16 04/01/16 15:00 23:00 07:00 Intake Total 240 ml 250 ml Output Total 750 ml 900 ml Balance -510 ml -650 ml Results Result Diagram: 03/31/16 0651 04/01/16 0607 Results 24 hrs Laboratory Tests Test 04/01/16 06:07 Activated Partial Thromboplast Time 37.2 H Anion Gap 8 Blood Urea Nitrogen 9 Calcium Level 6.7 L Carbon Dioxide Level 28 Chloride Level 101 Creatinine 0.52 Glucose Level 78 INR International Normalized Ratio 1.21 Magnesium Level 1.8 Potassium Level 2.7 *L Prothrombin Time 15.4 H Prothrombin Time Ratio 1.2 Sodium Level 134 L Medications Medications Current Medications Lorazepam (Ativan) 0.5 mg Q6H PRN IV ANXIETY Last administered on 03/31/16 21: 51; Admin Dose 0.5 MG; Start 02/24/16 at 02:00 Ondansetron HCl (Zofran Inj) 4 mg Q6H PRN IV NAUSEA AND/OR VOMITING Last administered on 03/01/16 13:17; Admin Dose 4 MG; Start 02/24/16 at 02:00 Nitroglycerin (Nitroglycerin (Sl Tab) 0.4 Mg) 1 tab Q5M PRN SL CHEST PAIN; Start 02/24/16 at 02:00 Hydralazine HCl (Apresoline) 10 mg Q6H PRN IV SBP > 160 Last administered on 20:57; Admin Dose 10 MG; Start 02/24/16 at 02:00 Labetalol HCl (Labetalol) 10 mg Q6 PRN IV ELEVATED BLOOD PRESSURE; Start at 23:00 Guaifenesin/ Dextromethorphan (Robitussin Dm Liquid Cup) 5 ml Q6 PRN PO COUGH Last administered on 02/27/16 18:12; Admin Dose 5 ML; Start 02/24/16 at 23:00 Nicotine (Nicoderm 21 Mg/ 24hr) 1 patch DAILY TRANSDERM Last administered on 09:34; Admin Dose 1 PATCH; Start 02/26/16 at 09:00 Levothyroxine Sodium (Synthroid) 25 mcg DAILY@06 PO Last administered on 06:53; Admin Dose 25 MCG; Start 02/28/16 at 06:00 Hydromorphone HCl (Dilaudid) 0.5 mg Q3 PRN IV PAIN Last administered on 00:19; Admin Dose 0.5 MG; Start 03/02/16 at 17:00 Heparin Sodium (Porcine) (Heparin (5000 Units/0.5 ml)) 5,000 unit BID SC Last administered on 04/01/16 09:47; Admin Dose 5,000 UNIT; Start 03/02/16 at 21:30 Dicyclomine HCl (Bentyl) 10 mg BID PO Last administered on 04/01/16 09:30; Admin Dose 10 MG; Start 03/15/16 at 21:00 Metronidazole (Flagyl) 500 mg Q8 PO Last administered on 04/01/16 14:39; Admin Dose 500 MG; Start 03/16/16 at 22:00 Verapamil HCl (Verapamil) 5 mg Q6H PRN IV ELEVATED HEART RATE Last administered on 03/17/16 23:45; Admin Dose 5 MG; Start 03/17/16 at 23:30 Zolpidem Tartrate (Ambien) 5 mg HS PRN PO INSOMNIA Last administered on 21:06; Admin Dose 5 MG; Start 03/17/16 at 23:30 Metoprolol Tartrate (Lopressor) 5 mg Q4H PRN IV ELEVATED HEART RATE Last administered on 03/18/16 01:41; Admin Dose 5 MG; Start 03/18/16 at 01:30 Acetaminophen (Tylenol Tab) 650 mg Q6H PRN PO PAIN AND OR ELEVATED TEMP Last administered on 03/19/16 01:18; Admin Dose 650 MG; Start 03/18/16 at 23:30 Aspirin (Aspirin) 81 mg DAILY NGT Last administered on 04/01/16 09:30; Admin Dose 81 MG; Start 03/21/16 at 09:00 Pantoprazole (Protonix Iv) 40 mg DAILY@06 IV Last administered on 04/01/16 06: 52; Admin Dose 40 MG; Start 03/21/16 at 06:00 Collagenase (Santyl) 1 applic DAILY TOP Last administered on 04/01/16 10:54; Admin Dose 1 APPLIC; Start 03/21/16 at 15:00 Metoprolol Tartrate (Lopressor) 25 mg BID PO Last administered on 04/01/16 09: 34; Admin Dose 25 MG; Start 03/22/16 at 21:00 IV Flush (NS 10 ml) 10 ml PRN PRN IV IV PROTOCOL; Start 03/22/16 at 12:30 Hydralazine HCl (Apresoline) 50 mg Q8 PO Last administered on 04/01/16 14:39; Admin Dose 50 MG; Start 03/23/16 at 14:00 Fluconazole (Diflucan) 100 mg DAILY PO Last administered on 04/01/16 10:53; Admin Dose 100 MG; Start 03/25/16 at 09:00 Metolazone (Zaroxolyn) 5 mg DAILY PO Last administered on 04/01/16 09:34; Admin Dose 5 MG; Start 03/31/16 at 20:30 Potassium Chloride (Klor-Con 20) 20 meq BID PO Last administered on 04/01/16 09:30; Admin Dose 20 MEQ; Start 03/31/16 at 21:00 Lactobacillus Acidophilus/ Rhamnosus (Culturelle) 1 cap BID PO Last administered on 04/01/16 09:30; Admin Dose 1 CAP; Start 03/31/16 at 10:00 PHOEBE BANDA NP Apr 01, 2016 20:08
[2016-04-02] VITALS (12 sets, daily range): BP systolic 112–143; BP diastolic 57–65; PULSE 59–159; RESP 18–20
[2016-04-02] MEDS: ZOLPIDEM 5 MG TAB PO PRN ×2 (01:06→22:30)
[2016-04-02] MEDS: LEVOTHYROXINE 25 MCG TAB PO SCH (05:29)
[2016-04-02] MEDS: metroNIDAZOLE 500 MG TAB PO SCH ×3 (05:30→22:30)
[2016-04-02] MEDS: PANTOPRAZOLE 40 MG INJ IV SCH (05:30)
[2016-04-02] MEDS: FUROSEMIDE 40 MG INJ IV SCH ×2 (05:30→17:16)
[2016-04-02 07:34] LABS: CREATININE 0.54 mg/dl (0.44-1.00)
[2016-04-02 07:35] LABS: CALCIUM 7.2 mg/dl (8.4-10.2)
[2016-04-02] MEDS: HEPARIN 5,000 UNIT/0.5 ML SYG SC SCH ×2 (09:00→20:34)
[2016-04-02] MEDS: ASPIRIN 81 MG TAB NGT SCH (09:00)
[2016-04-02] MEDS: NICOTINE (21 MG/24 HR) PATCH TRANSDERM SCH (09:00)
[2016-04-02] MEDS: DICYCLOMINE 10 MG CAP PO SCH ×2 (09:01→20:32)
[2016-04-02] MEDS: POTASSIUM CHLORIDE (SR) 20 MEQ TAB PO SCH ×2 (09:01→20:32)
[2016-04-02] MEDS: METOPROLOL 25 MG TAB PO SCH ×2 (09:02→20:33)
[2016-04-02] MEDS: METOLAZONE 5 MG TAB PO SCH (09:02)
[2016-04-02] MEDS: LACTOBACILLUS RHAMNOSUS CAP PO SCH ×2 (09:02→20:32)
[2016-04-02] MEDS ORDERED: POTASSIUM CL (0.2 MEQ/ML) IV SYG IV* SCH (12:30)
[2016-04-02] MEDS: COLLAGENASE 30 GM TUBE TOP SCH (12:49)
[2016-04-02] MEDS ORDERED: POTASSIUM CHLORIDE 250 ML IVPB ONE (13:00)
--- NOTE | 2016-04-02 13:34 | CONS ---
Date/Time of Note Date/Time of Note DATE: 04/02/16 TIME: 13:32 Assessment/Plan Assessment/Plan Chief Complaint/Hosp Course IMPRESSION: 1. Positive troponin, assess significance in the setting of renal failure, status post code blue with respiratory arrest.-Now trended negative 2. Cardiomyopathy with decreased left ventricular ejection fraction/CHF- systolic acute on chronic. last EF being approximately 35% by echo. 3. Abnormal electrocardiogram, assess for acute coronary syndrome. 4. Hypotension-now improved with HTN labile 5. Anemia. 6. Renal failure-improving 7. Hypokalemia s/p repletion 8. Hypernatremia-improved 9. Hemothorax status post VATS with decortication. 10. Status post pulmonary arrest. 11. Anemia. 12. Lower extremity edema/cellulitis-improving slowly. 14. Colitis 15. Resp failure s/p extubation 16.Hypokalemia 17. Pleural effusion s/p thoracentesis Recc: -tele -serial ecg's -S/P infusionof IV albumin -Increase lasix/metolazine diuresis and follow volume status closely -Continue abx's and f/u cx data -Continue BB/hydralazine and follow labile BP closely -Give additional KCL repletion Problems: Consultation Date/Type/Reason Admit Date/Time Feb 24, 2016 at 04:06 Initial Consult Date 03/20/16 Type of Consultation: Cardiology Reason for Consultation CHF/cmy/positive troponin Referring Provider: HOWARD LEVY MD Exam/Review of Systems Vital Signs Vitals Vital Signs Date Time Temp Pulse Resp B/P Pulse Ox O2 Delivery O2 Flow Rate FiO2 04/02/16 12:17 60 04/02/16 12:16 97.9 18 112/65 100 04/02/16 11:16 Nasal Cannula 2.0 Intake and Output 04/01/16 04/01/16 04/02/16 15:00 23:00 07:00 Intake Total 670 ml 300 ml Output Total 1400 ml 1600 ml Balance -730 ml -1300 ml Exam Review of Systems: CONSTITUTIONAL: No fevers, chills. PULMONARY: No sob CARDIOVASCULAR: No chest pain/palpitations GASTROINTESTINAL: No nausea/vomiting. GENITOURINARY: No hematuria/dysuria. MUSCULOSKELETAL: No myagias/arthalgias. PSYCHIATRIC: The patient denies depression. NEUROLOGIC: lethargic Constitutional: alert Psych: no complaints Head: normocephalic ENMT: mucosa pink and moist Neck: jvd (9 cm water), supple Respiratory: diminished breath sounds (at bases/B) Cardiovascular: regular rate and rhythm Gastrointestinal: non-tender Musculoskeletal: muscle tone (normal) Extremities: other (ankle covered by dressing), pitting pedal edema (bilateral) Neurological: lethargic Results Result Diagram: 03/31/16 0651 04/02/16 0535 Results 24 hrs Laboratory Tests Test 04/02/16 05:35 Anion Gap 8 Blood Urea Nitrogen 9 Calcium Level 7.2 L Carbon Dioxide Level 29 Chloride Level 98 Creatinine 0.54 Glucose Level 77 Magnesium Level 1.7 Potassium Level 3.0 L Sodium Level 132 L Medications Medications Current Medications Lorazepam (Ativan) 0.5 mg Q6H PRN IV ANXIETY Last administered on 03/31/16 21: 51; Admin Dose 0.5 MG; Start 02/24/16 at 02:00 Ondansetron HCl (Zofran Inj) 4 mg Q6H PRN IV NAUSEA AND/OR VOMITING Last administered on 03/01/16 13:17; Admin Dose 4 MG; Start 02/24/16 at 02:00 Nitroglycerin (Nitroglycerin (Sl Tab) 0.4 Mg) 1 tab Q5M PRN SL CHEST PAIN; Start 02/24/16 at 02:00 Hydralazine HCl (Apresoline) 10 mg Q6H PRN IV SBP > 160 Last administered on 20:57; Admin Dose 10 MG; Start 02/24/16 at 02:00 Labetalol HCl (Labetalol) 10 mg Q6 PRN IV ELEVATED BLOOD PRESSURE; Start at 23:00 Guaifenesin/ Dextromethorphan (Robitussin Dm Liquid Cup) 5 ml Q6 PRN PO COUGH Last administered on 02/27/16 18:12; Admin Dose 5 ML; Start 02/24/16 at 23:00 Nicotine (Nicoderm 21 Mg/ 24hr) 1 patch DAILY TRANSDERM Last administered on 09:00; Admin Dose 1 PATCH; Start 02/26/16 at 09:00 Levothyroxine Sodium (Synthroid) 25 mcg DAILY@06 PO Last administered on 05:29; Admin Dose 25 MCG; Start 02/28/16 at 06:00 Hydromorphone HCl (Dilaudid) 0.5 mg Q3 PRN IV PAIN Last administered on 00:19; Admin Dose 0.5 MG; Start 03/02/16 at 17:00 Heparin Sodium (Porcine) (Heparin (5000 Units/0.5 ml)) 5,000 unit BID SC Last administered on 04/02/16 09:00; Admin Dose 5,000 UNIT; Start 03/02/16 at 21:30 Dicyclomine HCl (Bentyl) 10 mg BID PO Last administered on 04/02/16 09:01; Admin Dose 10 MG; Start 03/15/16 at 21:00 Metronidazole (Flagyl) 500 mg Q8 PO Last administered on 04/02/16 05:30; Admin Dose 500 MG; Start 03/16/16 at 22:00 Verapamil HCl (Verapamil) 5 mg Q6H PRN IV ELEVATED HEART RATE Last administered on 03/17/16 23:45; Admin Dose 5 MG; Start 03/17/16 at 23:30 Zolpidem Tartrate (Ambien) 5 mg HS PRN PO INSOMNIA Last administered on 01:06; Admin Dose 5 MG; Start 03/17/16 at 23:30 Metoprolol Tartrate (Lopressor) 5 mg Q4H PRN IV ELEVATED HEART RATE Last administered on 03/18/16 01:41; Admin Dose 5 MG; Start 03/18/16 at 01:30 Acetaminophen (Tylenol Tab) 650 mg Q6H PRN PO PAIN AND OR ELEVATED TEMP Last administered on 03/19/16 01:18; Admin Dose 650 MG; Start 03/18/16 at 23:30 Aspirin (Aspirin) 81 mg DAILY NGT Last administered on 04/02/16 09:00; Admin Dose 81 MG; Start 03/21/16 at 09:00 Pantoprazole (Protonix Iv) 40 mg DAILY@06 IV Last administered on 04/02/16 05: 30; Admin Dose 40 MG; Start 03/21/16 at 06:00 Collagenase (Santyl) 1 applic DAILY TOP Last administered on 04/02/16 12:49; Admin Dose 1 APPLIC; Start 03/21/16 at 15:00 Metoprolol Tartrate (Lopressor) 25 mg BID PO Last administered on 04/02/16 09: 02; Admin Dose 25 MG; Start 03/22/16 at 21:00 IV Flush (NS 10 ml) 10 ml PRN PRN IV IV PROTOCOL; Start 03/22/16 at 12:30 Hydralazine HCl (Apresoline) 50 mg Q8 PO Last administered on 04/02/16 05:30; Admin Dose 50 MG; Start 03/23/16 at 14:00 Metolazone (Zaroxolyn) 5 mg DAILY PO Last administered on 04/02/16 09:02; Admin Dose 5 MG; Start 03/31/16 at 20:30 Potassium Chloride (Klor-Con 20) 20 meq BID PO Last administered on 04/02/16 09:01; Admin Dose 20 MEQ; Start 03/31/16 at 21:00 Lactobacillus Acidophilus/ Rhamnosus 1 cap 1 cap BID PO Last administered on 09:02; Admin Dose 1 CAP; Start 03/31/16 at 10:00 Potassium Chloride (KCl 40 MEQ/250 ML NS) 250 ml @ 62.5 mls/hr ONCE ONCE IVPB ; Start 04/02/16 at 13:00; Stop 04/02/16 at 16:59 KORINA OCONNOR Apr 02, 2016 13:33
--- NOTE | 2016-04-02 14:13 | RADRPT ---
PROCEDURE: XR Chest. CLINICAL INDICATION: Shortness of breath. TECHNIQUE: Single frontal view. COMPARISON: 03/30/2016. FINDINGS: The left arm PICC line tip is in the lower superior vena cava. There is air space disease in the ri ght mid and lower lung zones consistent with atelectasis or pneumonia. There is mild pulmonary garcía a. The lungs are otherwise clear. There is a moderate right pleural effusion. The heart size is normal. There is calcification in the aorta consistent with atherosclerosis. There is no pneumothorax. IMPRESSION: 1. Left arm PICC line in satisfactory position. 2. Right mid and lower lung zone atelectasis or pneumonia. 3. Mild pulmonary edema. 4. Atherosclerosis. 5. Moderate right pleural effusion. RPTAT: QQ .Carter Field MD, Date Time Electronically viewed and signed by .Carter Field MD, on 04/02/2016 14:13 .R/
--- NOTE | 2016-04-02 18:35 | PN ---
Date/Time of Note Date/Time of Note DATE: 04/02/16 TIME: 18:32 Assessment/Plan VTE Prophylaxis VTE Prophylaxis Intervention: heparin Lines/Catheters IV Catheter Type (from Nrs): PICC Line Central line still needed: Yes (IV access) Urinary Cath still in place: Yes Reason Cath still needed: urinary retention Assessment/Plan Assessment/Plan 1. Sepsis. 2. Acute respiratory failure, intubated on ventilator, possible aspiratio pNA s /p Extubation on 03/24/16 3. Bilateral pleural effusions status post thoracentesis x 3 , 03/18,03/24 and 4. Severe pancolitis, patient remains on coverage with Dificid, oral vancomycin and Flagyl. 5. Left lower extremity cellulitis, resolving. 6. Status post Ann glabrata urinary tract infection. 7. Status post cervical spine injury. 8. Status post diagnostic laparoscopy on 03/01/2016. 9. Hypokalemia and Hypomagnesemia Plan: IV abx, ID following s/p Barium swallow study which was worried about aspiration, but family wants to keep her on Po diet, she is currently tolerating Po diet KCL 40mEq IV x 1 now- continue KDur to 20meQ PO BID s/p Thoracentesis 550cc drained on 03/30/16- CXR today showed moderate right pleural effusion, will order US chest for tomorrow to assess for need of thoracentesis, PICC line care, cano catheter reinserted due to urinary retention Family decided for DNR, regarding Hospice care they want to wait Heparin for DVT prophylaxis out of bed to chair TID Family wants to have acute rehab evaluation,- ordered Subjective 24 Hr Interval Summary Free Text/Dictation pt K is still low, CXR showed moderate right pleural effusion Exam/Review of Systems Vital Signs Vitals Vital Signs Date Time Temp Pulse Resp B/P Pulse Ox O2 Delivery O2 Flow Rate FiO2 04/02/16 16:18 62 04/02/16 15:47 98.4 18 131/59 100 04/02/16 11:16 Nasal Cannula 2.0 Intake and Output 04/01/16 04/01/16 04/02/16 15:00 23:00 07:00 Intake Total 670 ml 300 ml Output Total 1400 ml 1600 ml Balance -730 ml -1300 ml Exam alert, awake, mild to moderat resp distress bilateral basilar rales , Decreased BS to RML and FLL, + wheezing S1 S2 RRR Soft, NT 1 + edema, + cano catheter due to urinary retention Results Result Diagram: 03/31/16 0651 04/02/16 0535 Results 24 hrs Laboratory Tests Test 04/02/16 05:35 Anion Gap 8 Blood Urea Nitrogen 9 Calcium Level 7.2 L Carbon Dioxide Level 29 Chloride Level 98 Creatinine 0.54 Glucose Level 77 Magnesium Level 1.7 Potassium Level 3.0 L Sodium Level 132 L Medications Medications Current Medications Lorazepam (Ativan) 0.5 mg Q6H PRN IV ANXIETY Last administered on 03/31/16 21: 51; Admin Dose 0.5 MG; Start 02/24/16 at 02:00 Ondansetron HCl (Zofran Inj) 4 mg Q6H PRN IV NAUSEA AND/OR VOMITING Last administered on 03/01/16 13:17; Admin Dose 4 MG; Start 02/24/16 at 02:00 Nitroglycerin (Nitroglycerin (Sl Tab) 0.4 Mg) 1 tab Q5M PRN SL CHEST PAIN; Start 02/24/16 at 02:00 Hydralazine HCl (Apresoline) 10 mg Q6H PRN IV SBP > 160 Last administered on 20:57; Admin Dose 10 MG; Start 02/24/16 at 02:00 Labetalol HCl (Labetalol) 10 mg Q6 PRN IV ELEVATED BLOOD PRESSURE; Start at 23:00 Guaifenesin/ Dextromethorphan (Robitussin Dm Liquid Cup) 5 ml Q6 PRN PO COUGH Last administered on 02/27/16 18:12; Admin Dose 5 ML; Start 02/24/16 at 23:00 Nicotine (Nicoderm 21 Mg/ 24hr) 1 patch DAILY TRANSDERM Last administered on 09:00; Admin Dose 1 PATCH; Start 02/26/16 at 09:00 Levothyroxine Sodium (Synthroid) 25 mcg DAILY@06 PO Last administered on 05:29; Admin Dose 25 MCG; Start 02/28/16 at 06:00 Hydromorphone HCl (Dilaudid) 0.5 mg Q3 PRN IV PAIN Last administered on 00:19; Admin Dose 0.5 MG; Start 03/02/16 at 17:00 Heparin Sodium (Porcine) (Heparin (5000 Units/0.5 ml)) 5,000 unit BID SC Last administered on 04/02/16 09:00; Admin Dose 5,000 UNIT; Start 03/02/16 at 21:30 Dicyclomine HCl (Bentyl) 10 mg BID PO Last administered on 04/02/16 09:01; Admin Dose 10 MG; Start 03/15/16 at 21:00 Metronidazole (Flagyl) 500 mg Q8 PO Last administered on 04/02/16 14:04; Admin Dose 500 MG; Start 03/16/16 at 22:00 Verapamil HCl (Verapamil) 5 mg Q6H PRN IV ELEVATED HEART RATE Last administered on 03/17/16 23:45; Admin Dose 5 MG; Start 03/17/16 at 23:30 Zolpidem Tartrate (Ambien) 5 mg HS PRN PO INSOMNIA Last administered on 01:06; Admin Dose 5 MG; Start 03/17/16 at 23:30 Metoprolol Tartrate (Lopressor) 5 mg Q4H PRN IV ELEVATED HEART RATE Last administered on 03/18/16 01:41; Admin Dose 5 MG; Start 03/18/16 at 01:30 Acetaminophen (Tylenol Tab) 650 mg Q6H PRN PO PAIN AND OR ELEVATED TEMP Last administered on 03/19/16 01:18; Admin Dose 650 MG; Start 03/18/16 at 23:30 Aspirin (Aspirin) 81 mg DAILY NGT Last administered on 04/02/16 09:00; Admin Dose 81 MG; Start 03/21/16 at 09:00 Pantoprazole (Protonix Iv) 40 mg DAILY@06 IV Last administered on 04/02/16 05: 30; Admin Dose 40 MG; Start 03/21/16 at 06:00 Collagenase (Santyl) 1 applic DAILY TOP Last administered on 04/02/16 12:49; Admin Dose 1 APPLIC; Start 03/21/16 at 15:00 Metoprolol Tartrate (Lopressor) 25 mg BID PO Last administered on 04/02/16 09: 02; Admin Dose 25 MG; Start 03/22/16 at 21:00 IV Flush (NS 10 ml) 10 ml PRN PRN IV IV PROTOCOL; Start 03/22/16 at 12:30 Hydralazine HCl (Apresoline) 50 mg Q8 PO Last administered on 04/02/16 14:04; Admin Dose 50 MG; Start 03/23/16 at 14:00 Metolazone (Zaroxolyn) 5 mg DAILY PO Last administered on 04/02/16 09:02; Admin Dose 5 MG; Start 03/31/16 at 20:30 Potassium Chloride (Klor-Con 20) 20 meq BID PO Last administered on 04/02/16 09:01; Admin Dose 20 MEQ; Start 03/31/16 at 21:00 Lactobacillus Acidophilus/ Rhamnosus (Culturelle) 1 cap BID PO Last administered on 04/02/16 09:02; Admin Dose 1 CAP; Start 03/31/16 at 10:00 HOWARD LVEY MD Apr 02, 2016 18:35
[2016-04-02] MEDS ORDERED: VANCOMYCIN IV PER PHARMACY XX SCH (19:30)
--- NOTE | 2016-04-02 19:57 | PN ---
DATE: 04/02/2016 SUBJECTIVE: No changes overnight. The patient is alert, looks comfortable. Denies pain, discomfor t. No fevers. INDWELLINGS: She has left upper extremity PICC line placed on 03/22/2016, Francois catheter. ANTIMICROBIALS: The patient is on Flagyl. PHYSICAL EXAMINATION: GENERAL: Fragile, elderly woman who is alert, in no distress. HEENT: Head atraumatic, normocephalic. Sclerae anicteric. Buccal mucosa pink. NECK: Supple, trachea midline. CHEST: Rise symmetrical. Breath sounds diminished to bases. HEART: S1, S2. ABDOMEN: Obese, soft, bowel tones present. EXTREMITIES: With bilateral edema. Left lower extremity with increased erythema. ASSESSMENT: 1. Persistent left lower extremity cellulitis, became worse after antibiotics discontinued. 2. Pancolitis. 3. Status post pneumonia with acute respiratory failure. 4. Dysphagia. 5. Pleural effusion, status post multiple thoracenteses. 6. Status post urinary tract infection. PLAN: The patient remains clinically stable. We are going to restart her on IV vancomycin given re currence of her left lower extremity cellulitis. Continue Flagyl. Continue management as per prima team and consultants. Dictated By: PHOEBE BANDA ASSEMBLY PRESS OPERATOR for JUAN HUGHES MD NI/NTS Conf#: [id number] DID#: [id number]
[2016-04-02] MEDS: LORAZEPAM 2 MG INJ IV PRN (20:32)
[2016-04-02] MEDS: VANCOMYCIN 1 GM in NS 250 ML IVPB SCH (20:52)
--- NOTE | 2016-04-02 23:38 | PN ---
Date/Time of Note Date/Time of Note DATE: 04/02/16 TIME: 23:37 Assessment/Plan Lines/Catheters IV Catheter Type (from [facility]): PICC Line Francois in Place (from [facility]): Yes Assessment/Plan Chief Complaint/Hosp Course 1. Abdominal pain, with CT diagnosis of pancolitis, with significant leukocytosis and bandemia. s/p Lap exploration and only small mid transverse with min mottling. Bowel function. -Antibiotics per ID -Judicious fluid management 2. Sepsis, multifactorial (pancolitis ? ischemic, urinary tract infection, pulmonary infiltrates, bacteremia). Leukocytosis ? etiology (aspiration vs other). Improved again. -Antibiotic therapy. -Judicious fluid management. -Close monitoring. 3. Renal insufficiency secondary to sepsis. Improved -Continue judicious fluid management. -Avoid nephrotoxic agents as possible. 4. Anemia, with recent hemothorax requiring VATS decortication. -Transfuse as needed. 5. Hypoalbuminemia. -Eventual nutritional optimization. 6. Hypernatremia -Correct with fluid management. 7. Hypertension. -Nutritional and medication optimization. 8. Hypothyroidism. -Replace hormone. 9. Hemopneumothorax, status post VATS. CT removed -followed by CT surgery. 10. Cervical spine injury, being maintained in brace by neurosurgery. 11. Respiratory distress/code s/p re-intubation. ? Aspiration PNA. Extubated again. -pulmonary toilette -abx Thank you, Problems: Subjective 24 Hr Interval Summary No f/c. No nausea or vomiting. Bowel function. Min bloated. No cough. No sz. No rash. No abdominal pain. No chest pain or shortness of breath. Exam/Review of Systems Vital Signs Vitals Vital Signs Date Time Temp Pulse Resp B/P Pulse Ox O2 Delivery O2 Flow Rate FiO2 04/02/16 23:34 98.3 62 20 143/63 96 04/02/16 11:16 Nasal Cannula 2.0 Intake and Output 04/01/16 04/01/16 04/02/16 14:59 22:59 06:59 Intake Total 670 ml 300 ml Output Total 1400 ml 1600 ml Balance -730 ml -1300 ml Exam Free Text/Dictation GENERAL: NAD. Responsive HEENT: Pupils equal, reactive. No scleral icterus. Mucous membranes are somewhat dry. NECK: No crepitus. No JVD. PULMONARY: Normal respiratory effort ABDOMEN: No rebound/guarding/rigidity. Distended. EXTREMITIES: Trace edema. VASCULAR: Capillary refill is 2 seconds. NEUROLOGIC: Responsive SKIN: No rashes/jaundice. PSYCH: normal affect Results Result Diagram: 03/31/16 0651 04/02/16 0535 CHRISTIANO JENNINGS MD Apr 02, 2016 23:37
[2016-04-03] VITALS (11 sets, daily range): BP systolic 127–151; BP diastolic 60–75; PULSE 64–73; RESP 20
[2016-04-03] MEDS: FUROSEMIDE 40 MG INJ IV SCH ×2 (06:57→18:15)
[2016-04-03] MEDS: LEVOTHYROXINE 25 MCG TAB PO SCH (06:57)
[2016-04-03] MEDS: PANTOPRAZOLE 40 MG INJ IV SCH (06:57)
[2016-04-03] MEDS: metroNIDAZOLE 500 MG TAB PO SCH ×3 (06:57→21:52)
--- NOTE | 2016-04-03 07:53 | RADRPT ---
PROCEDURE: US Chest. CLINICAL INDICATION: Shortness of breath. TECHNIQUE: Ultrasound of the right hemithorax was performed in the axial and sagittal planes. COMPARISON: Chest x-ray dated 04/02/2016. FINDINGS: There is a moderate right pleural effusion. IMPRESSION: 1. Moderate right pleural effusion. RPTAT: QQ .Carter Field MD, MD Date Time Electronically viewed and signed by .Carter Field MD, MD on 04/03/2016 07:52 .R/
[2016-04-03 07:57] LABS: INR 1.23; PROTIME 15.6 Sec (12.2-14.2); PT RATIO 1.2
[2016-04-03 07:58] LABS: PARTIAL THROMBOPLASTIN TIME 35.4 Sec (25.0-35.0); POTASSIUM 3.8 mmol/L (3.5-5.1)
[2016-04-03 08:00] LABS: CREATININE 0.52 mg/dl (0.44-1.00)
[2016-04-03 08:01] LABS: CALCIUM 7.6 mg/dl (8.4-10.2)
[2016-04-03] MEDS: LACTOBACILLUS RHAMNOSUS CAP PO SCH ×2 (09:16→20:39)
[2016-04-03] MEDS: ASPIRIN 81 MG TAB NGT SCH (09:16)
[2016-04-03] MEDS: POTASSIUM CHLORIDE (SR) 20 MEQ TAB PO SCH ×2 (09:17→20:38)
[2016-04-03] MEDS: METOPROLOL 25 MG TAB PO SCH ×2 (09:17→20:39)
[2016-04-03] MEDS: METOLAZONE 5 MG TAB PO SCH (09:18)
[2016-04-03] MEDS: DICYCLOMINE 10 MG CAP PO SCH ×2 (09:18→20:39)
[2016-04-03] MEDS: NICOTINE (21 MG/24 HR) PATCH TRANSDERM SCH (09:19)
[2016-04-03] MEDS: HEPARIN 5,000 UNIT/0.5 ML SYG SC SCH ×2 (09:49→20:43)
[2016-04-03] MEDS: COLLAGENASE 30 GM TUBE TOP SCH (09:51)
--- NOTE | 2016-04-03 13:14 | PN ---
Date/Time of Note Date/Time of Note DATE: 04/03/16 TIME: 13:13 Assessment/Plan Lines/Catheters IV Catheter Type (from [facility]): PICC Line Francois in Place (from [facility]): Yes Assessment/Plan Chief Complaint/Hosp Course 1. Abdominal pain, with CT diagnosis of pancolitis, with significant leukocytosis and bandemia. s/p Lap exploration and only small mid transverse with min mottling. Bowel function. s/p Antibiotics by ID -Judicious fluid management 2. Sepsis, multifactorial (pancolitis ? ischemic, urinary tract infection, pulmonary infiltrates, bacteremia). Leukocytosis ? etiology (aspiration vs other). Improved again. -Antibiotic therapy. -Judicious fluid management. -Close monitoring. 3. Renal insufficiency secondary to sepsis. Improved -Continue judicious fluid management. -Avoid nephrotoxic agents as possible. 4. Anemia, with recent hemothorax requiring VATS decortication. -Transfuse as needed. 5. Hypoalbuminemia. -Eventual nutritional optimization. 6. Hypernatremia -Correct with fluid management. 7. Hypertension. -Nutritional and medication optimization. 8. Hypothyroidism. -Replace hormone. 9. Hemopneumothorax, status post VATS. CT removed -followed by CT surgery. 10. Cervical spine injury, being maintained in brace by neurosurgery. 11. Respiratory distress/code s/p re-intubation. ? Aspiration PNA. Extubated again. -pulmonary toilette -abx Thank you, Problems: Subjective 24 Hr Interval Summary No f/c. No nausea or vomiting. Bowel function. Min bloated. No cough. No sz. No rash. No abdominal pain. No chest pain or shortness of breath. Exam/Review of Systems Vital Signs Vitals Vital Signs Date Time Temp Pulse Resp B/P Pulse Ox O2 Delivery O2 Flow Rate FiO2 04/03/16 12:41 73 04/03/16 12:15 97.7 20 127/60 100 04/02/16 20:05 Nasal Cannula 2.0 Intake and Output 04/02/16 04/02/16 04/03/16 15:00 23:00 07:00 Intake Total 670 ml 550 ml Output Total 1900 ml 2100 ml Balance -1230 ml -1550 ml Exam Free Text/Dictation GENERAL: NAD. Responsive HEENT: Pupils equal, reactive. No scleral icterus. Mucous membranes are somewhat dry. NECK: No crepitus. No JVD. PULMONARY: Normal respiratory effort ABDOMEN: No rebound/guarding/rigidity. Distended. EXTREMITIES: Trace edema. VASCULAR: Capillary refill is 2 seconds. NEUROLOGIC: Responsive SKIN: No rashes/jaundice. PSYCH: normal affect Results Result Diagram: 03/31/16 0651 04/03/16 0700 CHRISTIANO JENNINGS MD Apr 03, 2016 13:14
--- NOTE | 2016-04-03 13:59 | CONS ---
Date/Time of Note Date/Time of Note DATE: 04/03/16 TIME: 13:57 Assessment/Plan Assessment/Plan Chief Complaint/Hosp Course IMPRESSION: 1. Positive troponin, assess significance in the setting of renal failure, status post code blue with respiratory arrest.-Now trended negative 2. Cardiomyopathy with decreased left ventricular ejection fraction/CHF- systolic acute on chronic. last EF being approximately 35% by echo. 3. Abnormal electrocardiogram, assess for acute coronary syndrome. 4. Hypotension-now improved with HTN labile 5. Anemia. 6. Renal failure-improving 7. Hypokalemia s/p repletion 8. Hypernatremia-improved 9. Hemothorax status post VATS with decortication. 10. Status post pulmonary arrest. 11. Anemia. 12. Lower extremity edema/cellulitis-improving slowly. 14. Bishop colitis 15. Resp failure s/p extubation 16.Hypokalemia 17. Pleural effusion s/p thoracentesis Recc: -tele -serial ecg's -S/P infusion of IV albumin and consider additional doses -Increase lasix/metolazine diuresis and follow volume status closely with LE edema slowly improving with exceleent urine output -Continue abx's and f/u cx data -Continue BB/hydralazine and follow labile BP closely -Gabo ramírez Problems: Consultation Date/Type/Reason Admit Date/Time Feb 24, 2016 at 04:06 Initial Consult Date 03/20/16 Type of Consultation: Cardiology Reason for Consultation CHF/cardiomyopathy Referring Provider: HOWARD LEVY MD Exam/Review of Systems Vital Signs Vitals Vital Signs Date Time Temp Pulse Resp B/P Pulse Ox O2 Delivery O2 Flow Rate FiO2 04/03/16 12:41 73 04/03/16 12:15 97.7 20 127/60 100 04/02/16 20:05 Nasal Cannula 2.0 Intake and Output 04/02/16 04/02/16 04/03/16 15:00 23:00 07:00 Intake Total 670 ml 550 ml Output Total 1900 ml 2100 ml Balance -1230 ml -1550 ml Exam Review of Systems: CONSTITUTIONAL: No fevers, chills. PULMONARY: No sob CARDIOVASCULAR: No chest pain/palpitations GASTROINTESTINAL: No nausea/vomiting. GENITOURINARY: No hematuria/dysuria. MUSCULOSKELETAL: No myagias/arthalgias. PSYCHIATRIC: The patient denies depression. NEUROLOGIC: lethargic Constitutional: alert, oriented Psych: no complaints Head: normocephalic ENMT: mucosa pink and moist Neck: jvd (9-10 cm water), supple Respiratory: diminished breath sounds (at bases/B) Cardiovascular: regular rate and rhythm Gastrointestinal: non-tender, soft Musculoskeletal: muscle tone (normal) Extremities: pitting pedal edema (Bilateral ) Neurological: lethargic Results Result Diagram: 03/31/16 0651 04/03/16 0700 Results 24 hrs Laboratory Tests Test 04/03/16 07:00 Activated Partial Thromboplast Time 35.4 H Anion Gap 8 Blood Urea Nitrogen 8 Calcium Level 7.6 L Carbon Dioxide Level 32 H Chloride Level 96 L Creatinine 0.52 Glucose Level 78 INR International Normalized Ratio 1.23 Potassium Level 3.8 Prothrombin Time 15.6 H Prothrombin Time Ratio 1.2 Sodium Level 132 L Medications Medications Current Medications Lorazepam (Ativan) 0.5 mg Q6H PRN IV ANXIETY Last administered on 04/02/16 20: 32; Admin Dose 0.5 MG; Start 02/24/16 at 02:00 Ondansetron HCl (Zofran Inj) 4 mg Q6H PRN IV NAUSEA AND/OR VOMITING Last administered on 03/01/16 13:17; Admin Dose 4 MG; Start 02/24/16 at 02:00 Nitroglycerin (Nitroglycerin (Sl Tab) 0.4 Mg) 1 tab Q5M PRN SL CHEST PAIN; Start 02/24/16 at 02:00 Hydralazine HCl (Apresoline) 10 mg Q6H PRN IV SBP > 160 Last administered on 20:57; Admin Dose 10 MG; Start 02/24/16 at 02:00 Labetalol HCl (Labetalol) 10 mg Q6 PRN IV ELEVATED BLOOD PRESSURE; Start at 23:00 Guaifenesin/ Dextromethorphan (Robitussin Dm Liquid Cup) 5 ml Q6 PRN PO COUGH Last administered on 02/27/16 18:12; Admin Dose 5 ML; Start 02/24/16 at 23:00 Nicotine (Nicoderm 21 Mg/ 24hr) 1 patch DAILY TRANSDERM Last administered on 09:19; Admin Dose 1 PATCH; Start 02/26/16 at 09:00 Levothyroxine Sodium (Synthroid) 25 mcg DAILY@06 PO Last administered on 06:57; Admin Dose 25 MCG; Start 02/28/16 at 06:00 Hydromorphone HCl (Dilaudid) 0.5 mg Q3 PRN IV PAIN Last administered on 00:19; Admin Dose 0.5 MG; Start 03/02/16 at 17:00 Heparin Sodium (Porcine) (Heparin (5000 Units/0.5 ml)) 5,000 unit BID SC Last administered on 04/03/16 09:49; Admin Dose 5,000 UNIT; Start 03/02/16 at 21:30 Dicyclomine HCl (Bentyl) 10 mg BID PO Last administered on 04/03/16 09:18; Admin Dose 10 MG; Start 03/15/16 at 21:00 Metronidazole (Flagyl) 500 mg Q8 PO Last administered on 04/03/16 06:57; Admin Dose 500 MG; Start 03/16/16 at 22:00 Verapamil HCl (Verapamil) 5 mg Q6H PRN IV ELEVATED HEART RATE Last administered on 03/17/16 23:45; Admin Dose 5 MG; Start 03/17/16 at 23:30 Zolpidem Tartrate (Ambien) 5 mg HS PRN PO INSOMNIA Last administered on 22:30; Admin Dose 5 MG; Start 03/17/16 at 23:30 Metoprolol Tartrate (Lopressor) 5 mg Q4H PRN IV ELEVATED HEART RATE Last administered on 03/18/16 01:41; Admin Dose 5 MG; Start 03/18/16 at 01:30 Acetaminophen (Tylenol Tab) 650 mg Q6H PRN PO PAIN AND OR ELEVATED TEMP Last administered on 03/19/16 01:18; Admin Dose 650 MG; Start 03/18/16 at 23:30 Aspirin (Aspirin) 81 mg DAILY NGT Last administered on 04/03/16 09:16; Admin Dose 81 MG; Start 03/21/16 at 09:00 Pantoprazole (Protonix Iv) 40 mg DAILY@06 IV Last administered on 04/03/16 06: 57; Admin Dose 40 MG; Start 03/21/16 at 06:00 Collagenase (Santyl) 1 applic DAILY TOP Last administered on 04/03/16 09:51; Admin Dose 1 APPLIC; Start 03/21/16 at 15:00 Metoprolol Tartrate (Lopressor) 25 mg BID PO Last administered on 04/03/16 09: 17; Admin Dose 25 MG; Start 03/22/16 at 21:00 IV Flush (NS 10 ml) 10 ml PRN PRN IV IV PROTOCOL; Start 03/22/16 at 12:30 Hydralazine HCl (Apresoline) 50 mg Q8 PO Last administered on 04/03/16 06:57; Admin Dose 50 MG; Start 03/23/16 at 14:00 Metolazone (Zaroxolyn) 5 mg DAILY PO Last administered on 04/03/16 09:18; Admin Dose 5 MG; Start 03/31/16 at 20:30 Potassium Chloride (Klor-Con 20) 20 meq BID PO Last administered on 04/03/16 09:17; Admin Dose 20 MEQ; Start 03/31/16 at 21:00 Lactobacillus Acidophilus/ Rhamnosus 1 cap 1 cap BID PO Last administered on 09:16; Admin Dose 1 CAP; Start 03/31/16 at 10:00 Vancomycin HCl (Vancocin) 250 ml @ 125 mls/hr Q24H IVPB Last administered on 20:52; Admin Dose 125 MLS/HR; Start 04/02/16 at 21:00 KORINA OCONNOR Apr 03, 2016 13:59
--- NOTE | 2016-04-03 14:31 | CONS ---
Date/Time of Note Date/Time of Note DATE: 04/03/16 TIME: 14:29 Assessment/Plan Assessment/Plan Chief Complaint/Hosp Course SUBJECTIVE: No changes overnight. The patient is sleeping, looks comfortable.No fevers. INDWELLINGS: Left upper extremity PICC line placed on 03/22/2016, Francois catheter. ANTIMICROBIALS: IV Vanco, Flagyl. PHYSICAL EXAMINATION: GENERAL: Fragile, elderly woman who is alert, in no distress. HEENT: Head atraumatic, normocephalic. Sclerae anicteric. Buccal mucosa pink. NECK: Supple, trachea midline. CHEST: Rise symmetrical. Breath sounds diminished to bases. HEART: S1, S2. ABDOMEN: Obese, soft, bowel tones present. EXTREMITIES: With bilateral edema. Left lower extremity with edema/erythema. ASSESSMENT: 1. Persistent left lower extremity cellulitis, became worse after antibiotics discontinued==> Vanco restarted #2. 2. Pancolitis. 3. Status post pneumonia with acute respiratory failure. 4. Dysphagia. 5. Pleural effusion, status post multiple thoracenteses. 6. Status post urinary tract infection. PLAN: The patient remains clinically stable. Restarted on IV vancomycin for recurrence of her left lower extremity cellulitis. Continue Flagyl. Continue management as per primary team and consultants. 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 Problems: Consultation Date/Type/Reason Admit Date/Time Feb 24, 2016 at 04:06 Type of Consultation: id Referring Provider: HOWARD LEVY MD Exam/Review of Systems Vital Signs Vitals Vital Signs Date Time Temp Pulse Resp B/P Pulse Ox O2 Delivery O2 Flow Rate FiO2 04/03/16 12:41 73 04/03/16 12:15 97.7 20 127/60 100 04/03/16 09:00 Nasal Cannula 2.0 Intake and Output 04/02/16 04/02/16 04/03/16 15:00 23:00 07:00 Intake Total 670 ml 550 ml Output Total 1900 ml 2100 ml Balance -1230 ml -1550 ml Results Result Diagram: 03/31/16 0651 04/03/16 0700 Results 24 hrs Laboratory Tests Test 04/03/16 07:00 Activated Partial Thromboplast Time 35.4 H Anion Gap 8 Blood Urea Nitrogen 8 Calcium Level 7.6 L Carbon Dioxide Level 32 H Chloride Level 96 L Creatinine 0.52 Glucose Level 78 INR International Normalized Ratio 1.23 Potassium Level 3.8 Prothrombin Time 15.6 H Prothrombin Time Ratio 1.2 Sodium Level 132 L Medications Medications Current Medications Lorazepam (Ativan) 0.5 mg Q6H PRN IV ANXIETY Last administered on 04/02/16 20: 32; Admin Dose 0.5 MG; Start 02/24/16 at 02:00 Ondansetron HCl (Zofran Inj) 4 mg Q6H PRN IV NAUSEA AND/OR VOMITING Last administered on 03/01/16 13:17; Admin Dose 4 MG; Start 02/24/16 at 02:00 Nitroglycerin (Nitroglycerin (Sl Tab) 0.4 Mg) 1 tab Q5M PRN SL CHEST PAIN; Start 02/24/16 at 02:00 Hydralazine HCl (Apresoline) 10 mg Q6H PRN IV SBP > 160 Last administered on 20:57; Admin Dose 10 MG; Start 02/24/16 at 02:00 Labetalol HCl (Labetalol) 10 mg Q6 PRN IV ELEVATED BLOOD PRESSURE; Start at 23:00 Guaifenesin/ Dextromethorphan (Robitussin Dm Liquid Cup) 5 ml Q6 PRN PO COUGH Last administered on 02/27/16 18:12; Admin Dose 5 ML; Start 02/24/16 at 23:00 Nicotine (Nicoderm 21 Mg/ 24hr) 1 patch DAILY TRANSDERM Last administered on 09:19; Admin Dose 1 PATCH; Start 02/26/16 at 09:00 Levothyroxine Sodium (Synthroid) 25 mcg DAILY@06 PO Last administered on 06:57; Admin Dose 25 MCG; Start 02/28/16 at 06:00 Hydromorphone HCl (Dilaudid) 0.5 mg Q3 PRN IV PAIN Last administered on 00:19; Admin Dose 0.5 MG; Start 03/02/16 at 17:00 Heparin Sodium (Porcine) (Heparin (5000 Units/0.5 ml)) 5,000 unit BID SC Last administered on 04/03/16 09:49; Admin Dose 5,000 UNIT; Start 03/02/16 at 21:30 Dicyclomine HCl (Bentyl) 10 mg BID PO Last administered on 04/03/16 09:18; Admin Dose 10 MG; Start 03/15/16 at 21:00 Metronidazole (Flagyl) 500 mg Q8 PO Last administered on 04/03/16 06:57; Admin Dose 500 MG; Start 03/16/16 at 22:00 Verapamil HCl (Verapamil) 5 mg Q6H PRN IV ELEVATED HEART RATE Last administered on 03/17/16 23:45; Admin Dose 5 MG; Start 03/17/16 at 23:30 Zolpidem Tartrate (Ambien) 5 mg HS PRN PO INSOMNIA Last administered on 22:30; Admin Dose 5 MG; Start 03/17/16 at 23:30 Metoprolol Tartrate (Lopressor) 5 mg Q4H PRN IV ELEVATED HEART RATE Last administered on 03/18/16 01:41; Admin Dose 5 MG; Start 03/18/16 at 01:30 Acetaminophen (Tylenol Tab) 650 mg Q6H PRN PO PAIN AND OR ELEVATED TEMP Last administered on 03/19/16 01:18; Admin Dose 650 MG; Start 03/18/16 at 23:30 Aspirin (Aspirin) 81 mg DAILY NGT Last administered on 04/03/16 09:16; Admin Dose 81 MG; Start 03/21/16 at 09:00 Pantoprazole (Protonix Iv) 40 mg DAILY@06 IV Last administered on 04/03/16 06: 57; Admin Dose 40 MG; Start 03/21/16 at 06:00 Collagenase (Santyl) 1 applic DAILY TOP Last administered on 04/03/16 09:51; Admin Dose 1 APPLIC; Start 03/21/16 at 15:00 Metoprolol Tartrate (Lopressor) 25 mg BID PO Last administered on 04/03/16 09: 17; Admin Dose 25 MG; Start 03/22/16 at 21:00 IV Flush (NS 10 ml) 10 ml PRN PRN IV IV PROTOCOL; Start 03/22/16 at 12:30 Hydralazine HCl (Apresoline) 50 mg Q8 PO Last administered on 04/03/16 06:57; Admin Dose 50 MG; Start 03/23/16 at 14:00 Metolazone (Zaroxolyn) 5 mg DAILY PO Last administered on 04/03/16 09:18; Admin Dose 5 MG; Start 03/31/16 at 20:30 Potassium Chloride (Klor-Con 20) 20 meq BID PO Last administered on 04/03/16 09:17; Admin Dose 20 MEQ; Start 03/31/16 at 21:00 Lactobacillus Acidophilus/ Rhamnosus 1 cap 1 cap BID PO Last administered on 09:16; Admin Dose 1 CAP; Start 03/31/16 at 10:00 Vancomycin HCl (Vancocin) 250 ml @ 125 mls/hr Q24H IVPB Last administered on 20:52; Admin Dose 125 MLS/HR; Start 04/02/16 at 21:00 PHOEBE BANDA NP Apr 03, 2016 14:31
[2016-04-03] MEDS ORDERED: LIDOCAINE 1% (MPF) 5 ML VIAL ONE (16:54)
--- NOTE | 2016-04-03 17:14 | RADRPT ---
PROCEDURE: US guided right thoracentesis. CLINICAL INDICATION: Shortness of breath. Right pleural effusion. TECHNIQUE: Prior to the procedure, informed consent was obtained. The risks, benefits, and alternatives were e xplained to the patient or the patient's family, including but not limited to bleeding, infection, p ain, visceral or vascular damage, shock, pneumothorax, chest tube placement, air embolism, and . The patient or the patient's family understood the risks and the alternatives and wished to proce ed with the study. Informed written consent was obtained. A procedural pause was performed. The patient's name, date of , and procedure to be performed were verified. Ultrasound of the right hemithorax was performed in the axial and sagittal planes. A right pleural e ffusion is noted. Utilizing ultrasound guidance, optimal location for entry to the pleural cavity wa s ascertained. The overlying skin was prepped and draped in the usual sterile fashion. Approximate ly 10 ml of 1% Xylocaine was injected locally for pain control. Using ultrasound guidance, a 5-Fren ch Yueh catheter was introduced into the right pleural space without difficulty. Fluid was aspirated . COMPARISON: None. FINDINGS: Initial ultrasound demonstrates fluid in the right pleural space. Approximately 0.800 liters of ser ous fluid was aspirated and discarded. IMPRESSION: 1. Satisfactory ultrasound-guided right thoracentesis. RPTAT: QQ .Carter Field MD, Date Time Electronically viewed and signed by .Carter Field MD, on 04/03/2016 17:14 .R/
--- NOTE | 2016-04-03 17:26 | RADRPT ---
PROCEDURE: XR Chest. CLINICAL INDICATION: Rule out pneumothorax. TECHNIQUE: Single frontal view of the chest was obtained COMPARISON: Chest x-ray 01/30/2017 12:56 p.m. FINDINGS: The soft tissues are normal. There are degenerative osteophytes in the thoracic spine. The heart, cardiomediastinal silhouette, pulmonary vasculature and hilar structures are normal. There are vascu lar calcifications in the less aorta. There are bilateral pleural effusions. The right pleural effu adelia decreased in size since the earlier study. There is a linear density projecting over the later al aspect of the right diaphragm and right lower lung field which is likely a skin fold. A left lat eral decubitus view can be performed to exclude a pneumothorax if needed. The costophrenic angles a re normal. IMPRESSION: 1. There is a lucent area projecting over the right lower lung field which is likely a skin fold. A left lateral decubitus view can be performed to exclude a loculated hydropneumothorax if needed. 2. A small right pleural effusion. 3. PICC line catheter enters the left arm with its tip in the superior vena cava. 4. Interval improvement of the bilateral pulmonary infiltrates seen on the earlier study. 5. Air bronchograms and consolidative changes consistent with consolidative infiltrate or atelectas is are identified along the lower right heart border. RPTAT:AAJJ Physician Shayna Date Time Electronically viewed and signed by Jorge Mckeon Physician on 04/03/2016 17:25 [facility]/
--- NOTE | 2016-04-03 18:53 | CONS ---
Date/Time of Note Date/Time of Note DATE: 04/03/16 TIME: 18:51 Assessment/Plan Assessment/Plan Additional Assessment/Plan Additional Assessment/Plan IMPRESSION: 1. Pneumonia. 2. Pleural effusion. 3. Colitis, much better. 4. Hypokalemia. 5. Status post extubation for respiratory failure. 6. Leukocytosis, resolved. 7. Status post exploratory laparotomy. 8. Anemia. 9. s/p thoracocentesis 10 recurrent pleural effusion PLAN: At this point, is to continue present care. Aspiration precautions and encourage p.o. feeding. encourage po feeding PT clinically looks better Consultation Date/Type/Reason Admit Date/Time Feb 24, 2016 at 04:06 Type of Consultation: id Referring Provider: HOWARD LEVY MD 24 HR Interval Summary Free Text/Dictation as per family,pt doing good,eating 100% Exam/Review of Systems Vital Signs Vitals Vital Signs Date Time Temp Pulse Resp B/P Pulse Ox O2 Delivery O2 Flow Rate FiO2 04/03/16 16:46 66 04/03/16 15:24 97.7 20 150/65 100 04/03/16 09:00 Nasal Cannula 2.0 Intake and Output 04/02/16 04/02/16 04/03/16 15:00 23:00 07:00 Intake Total 670 ml 550 ml Output Total 1900 ml 2100 ml Balance -1230 ml -1550 ml Exam Constitutional: alert, oriented, well developed Psych: nl mood/affect, no complaints Head: atraumatic, normocephalic Eyes: EOMI, PERRL, nl conjunctiva, nl lids, nl sclera ENMT: nl external ears & nose, nl lips & teeth, nl nasal mucosa & septum Neck: non-tender, supple Respiratory: clear to auscultation, normal air movement Cardiovascular: nl pulses, regular rate and rhythm Gastrointestinal: nl liver, spleen, non-tender, soft Musculoskeletal: nl extremities to inspection, nl gait and stance Extremities: normal pulses 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, nl mental status, nl speech, nl strength Skin: nl turgor, No rash or lesions Lymph: nl lymph nodes Results Result Diagram: 03/31/16 0651 04/03/16 0700 Results 24 hrs Laboratory Tests Test 04/03/16 07:00 Activated Partial Thromboplast Time 35.4 H Anion Gap 8 Blood Urea Nitrogen 8 Calcium Level 7.6 L Carbon Dioxide Level 32 H Chloride Level 96 L Creatinine 0.52 Glucose Level 78 INR International Normalized Ratio 1.23 Potassium Level 3.8 Prothrombin Time 15.6 H Prothrombin Time Ratio 1.2 Sodium Level 132 L Medications Medications Current Medications Lorazepam (Ativan) 0.5 mg Q6H PRN IV ANXIETY Last administered on 04/02/16 20: 32; Admin Dose 0.5 MG; Start 02/24/16 at 02:00 Ondansetron HCl (Zofran Inj) 4 mg Q6H PRN IV NAUSEA AND/OR VOMITING Last administered on 03/01/16 13:17; Admin Dose 4 MG; Start 02/24/16 at 02:00 Nitroglycerin (Nitroglycerin (Sl Tab) 0.4 Mg) 1 tab Q5M PRN SL CHEST PAIN; Start 02/24/16 at 02:00 Hydralazine HCl (Apresoline) 10 mg Q6H PRN IV SBP > 160 Last administered on 20:57; Admin Dose 10 MG; Start 02/24/16 at 02:00 Labetalol HCl (Labetalol) 10 mg Q6 PRN IV ELEVATED BLOOD PRESSURE; Start at 23:00 Guaifenesin/ Dextromethorphan (Robitussin Dm Liquid Cup) 5 ml Q6 PRN PO COUGH Last administered on 02/27/16 18:12; Admin Dose 5 ML; Start 02/24/16 at 23:00 Nicotine (Nicoderm 21 Mg/ 24hr) 1 patch DAILY TRANSDERM Last administered on 09:19; Admin Dose 1 PATCH; Start 02/26/16 at 09:00 Levothyroxine Sodium (Synthroid) 25 mcg DAILY@06 PO Last administered on 06:57; Admin Dose 25 MCG; Start 02/28/16 at 06:00 Hydromorphone HCl (Dilaudid) 0.5 mg Q3 PRN IV PAIN Last administered on 00:19; Admin Dose 0.5 MG; Start 03/02/16 at 17:00 Heparin Sodium (Porcine) (Heparin (5000 Units/0.5 ml)) 5,000 unit BID SC Last administered on 04/03/16 09:49; Admin Dose 5,000 UNIT; Start 03/02/16 at 21:30 Dicyclomine HCl (Bentyl) 10 mg BID PO Last administered on 04/03/16 09:18; Admin Dose 10 MG; Start 03/15/16 at 21:00 Metronidazole (Flagyl) 500 mg Q8 PO Last administered on 04/03/16 14:56; Admin Dose 500 MG; Start 03/16/16 at 22:00 Verapamil HCl (Verapamil) 5 mg Q6H PRN IV ELEVATED HEART RATE Last administered on 03/17/16 23:45; Admin Dose 5 MG; Start 03/17/16 at 23:30 Zolpidem Tartrate (Ambien) 5 mg HS PRN PO INSOMNIA Last administered on 22:30; Admin Dose 5 MG; Start 03/17/16 at 23:30 Metoprolol Tartrate (Lopressor) 5 mg Q4H PRN IV ELEVATED HEART RATE Last administered on 03/18/16 01:41; Admin Dose 5 MG; Start 03/18/16 at 01:30 Acetaminophen (Tylenol Tab) 650 mg Q6H PRN PO PAIN AND OR ELEVATED TEMP Last administered on 03/19/16 01:18; Admin Dose 650 MG; Start 03/18/16 at 23:30 Aspirin (Aspirin) 81 mg DAILY NGT Last administered on 04/03/16 09:16; Admin Dose 81 MG; Start 03/21/16 at 09:00 Collagenase (Santyl) 1 applic DAILY TOP Last administered on 04/03/16 09:51; Admin Dose 1 APPLIC; Start 03/21/16 at 15:00 Metoprolol Tartrate (Lopressor) 25 mg BID PO Last administered on 04/03/16 09: 17; Admin Dose 25 MG; Start 03/22/16 at 21:00 IV Flush (NS 10 ml) 10 ml PRN PRN IV IV PROTOCOL; Start 03/22/16 at 12:30 Hydralazine HCl (Apresoline) 50 mg Q8 PO Last administered on 04/03/16 14:57; Admin Dose 50 MG; Start 03/23/16 at 14:00 Metolazone (Zaroxolyn) 5 mg DAILY PO Last administered on 04/03/16 09:18; Admin Dose 5 MG; Start 03/31/16 at 20:30 Potassium Chloride (Klor-Con 20) 20 meq BID PO Last administered on 04/03/16 09:17; Admin Dose 20 MEQ; Start 03/31/16 at 21:00 Lactobacillus Acidophilus/ Rhamnosus 1 cap 1 cap BID PO Last administered on 09:16; Admin Dose 1 CAP; Start 03/31/16 at 10:00 Vancomycin HCl (Vancocin) 250 ml @ 125 mls/hr Q24H IVPB Last administered on 20:52; Admin Dose 125 MLS/HR; Start 04/02/16 at 21:00 Pantoprazole (Protonix Tab) 40 mg DAILY@06 PO ; Start 04/04/16 at 06:00 CHARISSA WILHELM MD Apr 03, 2016 18:53
[2016-04-03] MEDS: VANCOMYCIN 1 GM in NS 250 ML IVPB SCH (20:41)
--- NOTE | 2016-04-03 22:26 | PN ---
Date/Time of Note Date/Time of Note DATE: 04/03/16 TIME: 22:24 Assessment/Plan VTE Prophylaxis VTE Prophylaxis Intervention: heparin Lines/Catheters IV Catheter Type (from Nrs): PICC Line Central line still needed: Yes (IV abx for SEpsis ) Urinary Cath still in place: Yes Reason Cath still needed: urinary retention Assessment/Plan Assessment/Plan 1. Sepsis. 2. Acute respiratory failure, intubated on ventilator, possible aspiratio pNA s /p Extubation on 03/24/16 3. Bilateral pleural effusions status post thoracentesis x 3 , 03/18,03/24, 03/30 and 04/03/16 4. Severe pancolitis, patient remains on coverage with Dificid, oral vancomycin and Flagyl. 5. Left lower extremity cellulitis, resolving. 6. Status post Ann glabrata urinary tract infection. 7. Status post cervical spine injury. 8. Status post diagnostic laparoscopy on 03/01/2016. 9. Hypokalemia and Hypomagnesemia Plan: IV abx, ID following s/p Barium swallow study which was worried about aspiration, but family wants to keep her on Po diet, she is currently tolerating Po diet K replacement s/p Thoracentesis today 04/03- 800 cc drained Family decided for DNR, regarding Hospice care they want to wait Heparin for DVT prophylaxis out of bed to chair TID pt declined by acute rehab unit, plan for D/c to [facility], [facility] Subjective 24 Hr Interval Summary Free Text/Dictation s/p Thoracentesis 800 cc drained, Vitals stable, Plan for d/c tomorrow to SNF Exam/Review of Systems Vital Signs Vitals Vital Signs Date Time Temp Pulse Resp B/P Pulse Ox O2 Delivery O2 Flow Rate FiO2 04/03/16 21:06 64 04/03/16 20:00 97.8 20 151/67 100 04/03/16 09:00 Nasal Cannula 2.0 Intake and Output 04/02/16 04/02/16 04/03/16 15:00 23:00 07:00 Intake Total 670 ml 550 ml Output Total 1900 ml 2100 ml Balance -1230 ml -1550 ml Exam alert, awake, mild to moderat resp distress bilateral basilar rales , Decreased BS to RML and FLL, + wheezing S1 S2 RRR Soft, NT 1 + edema, + cano catheter due to urinary retention Results Result Diagram: 03/31/16 0651 04/03/16 0700 Results 24 hrs Laboratory Tests Test 04/03/16 07:00 Activated Partial Thromboplast Time 35.4 H Anion Gap 8 Blood Urea Nitrogen 8 Calcium Level 7.6 L Carbon Dioxide Level 32 H Chloride Level 96 L Creatinine 0.52 Glucose Level 78 INR International Normalized Ratio 1.23 Potassium Level 3.8 Prothrombin Time 15.6 H Prothrombin Time Ratio 1.2 Sodium Level 132 L Medications Medications Current Medications Lorazepam (Ativan) 0.5 mg Q6H PRN IV ANXIETY Last administered on 04/02/16 20: 32; Admin Dose 0.5 MG; Start 02/24/16 at 02:00 Ondansetron HCl (Zofran Inj) 4 mg Q6H PRN IV NAUSEA AND/OR VOMITING Last administered on 03/01/16 13:17; Admin Dose 4 MG; Start 02/24/16 at 02:00 Nitroglycerin (Nitroglycerin (Sl Tab) 0.4 Mg) 1 tab Q5M PRN SL CHEST PAIN; Start 02/24/16 at 02:00 Hydralazine HCl (Apresoline) 10 mg Q6H PRN IV SBP > 160 Last administered on 20:57; Admin Dose 10 MG; Start 02/24/16 at 02:00 Labetalol HCl (Labetalol) 10 mg Q6 PRN IV ELEVATED BLOOD PRESSURE; Start at 23:00 Guaifenesin/ Dextromethorphan (Robitussin Dm Liquid Cup) 5 ml Q6 PRN PO COUGH Last administered on 02/27/16 18:12; Admin Dose 5 ML; Start 02/24/16 at 23:00 Nicotine (Nicoderm 21 Mg/ 24hr) 1 patch DAILY TRANSDERM Last administered on 09:19; Admin Dose 1 PATCH; Start 02/26/16 at 09:00 Levothyroxine Sodium (Synthroid) 25 mcg DAILY@06 PO Last administered on 06:57; Admin Dose 25 MCG; Start 02/28/16 at 06:00 Hydromorphone HCl (Dilaudid) 0.5 mg Q3 PRN IV PAIN Last administered on 00:19; Admin Dose 0.5 MG; Start 03/02/16 at 17:00 Heparin Sodium (Porcine) (Heparin (5000 Units/0.5 ml)) 5,000 unit BID SC Last administered on 04/03/16 20:43; Admin Dose 5,000 UNIT; Start 03/02/16 at 21:30 Dicyclomine HCl (Bentyl) 10 mg BID PO Last administered on 04/03/16 20:39; Admin Dose 10 MG; Start 03/15/16 at 21:00 Metronidazole (Flagyl) 500 mg Q8 PO Last administered on 04/03/16 21:52; Admin Dose 500 MG; Start 03/16/16 at 22:00 Verapamil HCl (Verapamil) 5 mg Q6H PRN IV ELEVATED HEART RATE Last administered on 03/17/16 23:45; Admin Dose 5 MG; Start 03/17/16 at 23:30 Zolpidem Tartrate (Ambien) 5 mg HS PRN PO INSOMNIA Last administered on 22:30; Admin Dose 5 MG; Start 03/17/16 at 23:30 Metoprolol Tartrate (Lopressor) 5 mg Q4H PRN IV ELEVATED HEART RATE Last administered on 03/18/16 01:41; Admin Dose 5 MG; Start 03/18/16 at 01:30 Acetaminophen (Tylenol Tab) 650 mg Q6H PRN PO PAIN AND OR ELEVATED TEMP Last administered on 03/19/16 01:18; Admin Dose 650 MG; Start 03/18/16 at 23:30 Aspirin (Aspirin) 81 mg DAILY NGT Last administered on 04/03/16 09:16; Admin Dose 81 MG; Start 03/21/16 at 09:00 Collagenase (Santyl) 1 applic DAILY TOP Last administered on 04/03/16 09:51; Admin Dose 1 APPLIC; Start 03/21/16 at 15:00 Metoprolol Tartrate (Lopressor) 25 mg BID PO Last administered on 04/03/16 20: 39; Admin Dose 25 MG; Start 03/22/16 at 21:00 IV Flush (NS 10 ml) 10 ml PRN PRN IV IV PROTOCOL; Start 03/22/16 at 12:30 Hydralazine HCl (Apresoline) 50 mg Q8 PO Last administered on 04/03/16 14:57; Admin Dose 50 MG; Start 03/23/16 at 14:00 Metolazone (Zaroxolyn) 5 mg DAILY PO Last administered on 04/03/16 09:18; Admin Dose 5 MG; Start 03/31/16 at 20:30 Potassium Chloride (Klor-Con 20) 20 meq BID PO Last administered on 04/03/16 20:38; Admin Dose 20 MEQ; Start 03/31/16 at 21:00 Lactobacillus Acidophilus/ Rhamnosus 1 cap 1 cap BID PO Last administered on 20:39; Admin Dose 1 CAP; Start 03/31/16 at 10:00 Vancomycin HCl (Vancocin) 250 ml @ 125 mls/hr Q24H IVPB Last administered on 20:41; Admin Dose 125 MLS/HR; Start 04/02/16 at 21:00 Pantoprazole (Protonix Tab) 40 mg DAILY@06 PO ; Start 04/04/16 at 06:00 HOWARD LEVY MD Apr 03, 2016 22:26
[2016-04-04] VITALS (8 sets, daily range): BP systolic 128–142; BP diastolic 52–58; PULSE 60–65; RESP 20
[2016-04-04] MEDS: metroNIDAZOLE 500 MG TAB PO SCH (05:15)
[2016-04-04] MEDS: FUROSEMIDE 40 MG INJ IV SCH (05:15)
[2016-04-04] MEDS: LEVOTHYROXINE 25 MCG TAB PO SCH (06:00)
[2016-04-04] MEDS ORDERED: PANTOPRAZOLE (EC) 40 MG TAB PO SCH (06:00)
[2016-04-04] MEDS: METOLAZONE 5 MG TAB PO SCH (09:17)
[2016-04-04] MEDS: ASPIRIN 81 MG TAB NGT SCH (09:17)
[2016-04-04] MEDS: POTASSIUM CHLORIDE (SR) 20 MEQ TAB PO SCH (09:18)
[2016-04-04] MEDS: LACTOBACILLUS RHAMNOSUS CAP PO SCH (09:18)
[2016-04-04] MEDS: METOPROLOL 25 MG TAB PO SCH (09:18)
[2016-04-04] MEDS: DICYCLOMINE 10 MG CAP PO SCH (09:18)
[2016-04-04] MEDS: NICOTINE (21 MG/24 HR) PATCH TRANSDERM SCH (09:19)
[2016-04-04] MEDS: COLLAGENASE 30 GM TUBE TOP SCH (09:19)
[2016-04-04] MEDS: HEPARIN 5,000 UNIT/0.5 ML SYG SC SCH (09:21)
--- NOTE | 2016-04-04 12:10 | PN ---
Date/Time of Note Date/Time of Note DATE: 04/04/16 TIME: 12:09 Assessment/Plan VTE Prophylaxis VTE Prophylaxis Intervention: heparin Lines/Catheters IV Catheter Type (from Nrs): PICC Line Central line still needed: Yes (IV access ) Urinary Cath still in place: Yes Reason Cath still needed: urinary retention Assessment/Plan Assessment/Plan 1. Sepsis. 2. Acute respiratory failure, intubated on ventilator, possible aspiratio pNA s /p Extubation on 03/24/16 3. Bilateral pleural effusions status post thoracentesis x 3 , 03/18,03/24, 03/30 and 04/03/16 4. Severe pancolitis, patient remains on coverage with Dificid, oral vancomycin and Flagyl. 5. Left lower extremity cellulitis, resolving. 6. Status post Ann glabrata urinary tract infection. 7. Status post cervical spine injury. 8. Status post diagnostic laparoscopy on 03/01/2016. 9. Hypokalemia and Hypomagnesemia Plan: IV abx, ID following s/p Barium swallow study which was worried about aspiration, but family wants to keep her on Po diet, she is currently tolerating Po diet K replacement s/p Thoracentesis today 04/03- 800 cc drained Family decided for DNR, regarding Hospice care they want to wait Heparin for DVT prophylaxis out of bed to chair TID pt declined by acute rehab unit, plan for D/c to SNF, [facility] Subjective 24 Hr Interval Summary Free Text/Dictation s/p thoracentesis 800 cc drained, more stable today Exam/Review of Systems Vital Signs Vitals Vital Signs Date Time Temp Pulse Resp B/P Pulse Ox O2 Delivery O2 Flow Rate FiO2 04/04/16 11:59 97.8 64 20 130/56 98 04/04/16 05:31 2.0 04/03/16 20:40 Nasal Cannula Intake and Output 04/03/16 04/03/16 04/04/16 15:00 23:00 07:00 Intake Total 1090 ml 600 ml Output Total 1950 ml 1680 ml Balance -860 ml -1080 ml Exam alert, awake, mild to moderat resp distress bilateral basilar rales , Decreased BS to RML and FLL, + wheezing S1 S2 RRR Soft, NT 1 + edema, + cano catheter due to urinary retention Results Result Diagram: 03/31/16 0651 04/03/16 0700 Medications Medications Current Medications Lorazepam (Ativan) 0.5 mg Q6H PRN IV ANXIETY Last administered on 04/02/16 20: 32; Admin Dose 0.5 MG; Start 02/24/16 at 02:00 Ondansetron HCl (Zofran Inj) 4 mg Q6H PRN IV NAUSEA AND/OR VOMITING Last administered on 03/01/16 13:17; Admin Dose 4 MG; Start 02/24/16 at 02:00 Nitroglycerin (Nitroglycerin (Sl Tab) 0.4 Mg) 1 tab Q5M PRN SL CHEST PAIN; Start 02/24/16 at 02:00 Hydralazine HCl (Apresoline) 10 mg Q6H PRN IV SBP > 160 Last administered on 20:57; Admin Dose 10 MG; Start 02/24/16 at 02:00 Labetalol HCl (Labetalol) 10 mg Q6 PRN IV ELEVATED BLOOD PRESSURE; Start at 23:00 Guaifenesin/ Dextromethorphan (Robitussin Dm Liquid Cup) 5 ml Q6 PRN PO COUGH Last administered on 02/27/16 18:12; Admin Dose 5 ML; Start 02/24/16 at 23:00 Nicotine (Nicoderm 21 Mg/ 24hr) 1 patch DAILY TRANSDERM Last administered on 09:19; Admin Dose 1 PATCH; Start 02/26/16 at 09:00 Levothyroxine Sodium (Synthroid) 25 mcg DAILY@06 PO Last administered on 06:00; Admin Dose 25 MCG; Start 02/28/16 at 06:00 Hydromorphone HCl (Dilaudid) 0.5 mg Q3 PRN IV PAIN Last administered on 00:19; Admin Dose 0.5 MG; Start 03/02/16 at 17:00 Heparin Sodium (Porcine) (Heparin (5000 Units/0.5 ml)) 5,000 unit BID SC Last administered on 04/04/16 09:21; Admin Dose 5,000 UNIT; Start 03/02/16 at 21:30 Dicyclomine HCl (Bentyl) 10 mg BID PO Last administered on 04/04/16 09:18; Admin Dose 10 MG; Start 03/15/16 at 21:00 Metronidazole (Flagyl) 500 mg Q8 PO Last administered on 04/04/16 05:15; Admin Dose 500 MG; Start 03/16/16 at 22:00 Verapamil HCl (Verapamil) 5 mg Q6H PRN IV ELEVATED HEART RATE Last administered on 03/17/16 23:45; Admin Dose 5 MG; Start 03/17/16 at 23:30 Zolpidem Tartrate (Ambien) 5 mg HS PRN PO INSOMNIA Last administered on 22:30; Admin Dose 5 MG; Start 03/17/16 at 23:30 Metoprolol Tartrate (Lopressor) 5 mg Q4H PRN IV ELEVATED HEART RATE Last administered on 03/18/16 01:41; Admin Dose 5 MG; Start 03/18/16 at 01:30 Acetaminophen (Tylenol Tab) 650 mg Q6H PRN PO PAIN AND OR ELEVATED TEMP Last administered on 03/19/16 01:18; Admin Dose 650 MG; Start 03/18/16 at 23:30 Aspirin (Aspirin) 81 mg DAILY NGT Last administered on 04/04/16 09:17; Admin Dose 81 MG; Start 03/21/16 at 09:00 Collagenase (Santyl) 1 applic DAILY TOP Last administered on 04/04/16 09:19; Admin Dose 1 APPLIC; Start 03/21/16 at 15:00 Metoprolol Tartrate (Lopressor) 25 mg BID PO Last administered on 04/04/16 09: 18; Admin Dose 25 MG; Start 03/22/16 at 21:00 IV Flush (NS 10 ml) 10 ml PRN PRN IV IV PROTOCOL; Start 03/22/16 at 12:30 Hydralazine HCl (Apresoline) 50 mg Q8 PO Last administered on 04/04/16 05:16; Admin Dose 50 MG; Start 03/23/16 at 14:00 Metolazone (Zaroxolyn) 5 mg DAILY PO Last administered on 04/04/16 09:17; Admin Dose 5 MG; Start 03/31/16 at 20:30 Potassium Chloride (Klor-Con 20) 20 meq BID PO Last administered on 04/04/16 09:18; Admin Dose 20 MEQ; Start 03/31/16 at 21:00 Lactobacillus Acidophilus/ Rhamnosus 1 cap 1 cap BID PO Last administered on 09:18; Admin Dose 1 CAP; Start 03/31/16 at 10:00 Vancomycin HCl (Vancocin) 250 ml @ 125 mls/hr Q24H IVPB Last administered on 20:41; Admin Dose 125 MLS/HR; Start 04/02/16 at 21:00 Pantoprazole (Protonix Tab) 40 mg DAILY@06 PO Last administered on 04/04/16 05 :15; Admin Dose 40 MG; Start 04/04/16 at 06:00 HOWARD LEVY MD Apr 04, 2016 12:10
--- NOTE | 2016-04-04 12:12 | PDOCDIS ---
Discharge Instructions CONDITION Patient Condition: Good HOME CARE INSTRUCTIONS: Special Diet: Mechanical Soft ACTIVITY: Activity Restrictions: Slowly Increase Activity Rest between Activity Avoid heavy lifting Avoid Heavy Housework FOLLOW UP/APPOINTMENTS Appointments follow up with physician at [facility], pt will need CXR next week on Sunday or sunday to assess for recurrence of pleural effusion HOWARD LEVY MD Apr 04, 2016 12:12
--- NOTE | 2016-04-04 12:39 | PN ---
DATE: 04/04/2016 SUBJECTIVE: The patient is alert, denies pain, discomfort. No fevers. She is lying comfortably in bed. No labs. ANTIMICROBIALS: Vancomycin. INDWELLINGS: Francois, PICC line placed on 03/22/2016. PHYSICAL EXAMINATION: GENERAL: This is a fragile, elderly woman who is alert, in no distress. HEENT: Head atraumatic, normocephalic. Sclerae anicteric. Buccal mucosa pink. NECK: Supple. CHEST: Rise symmetrical. Breath sounds clear. HEART: S1, S2. ABDOMEN: Soft, bowel sounds present. EXTREMITIES: Bilateral lower extremities resolving erythema. ASSESSMENT: 1. Status post sepsis, urinary tract infection, pneumonia. 2. Pancolitis. 3. Left lower extremity cellulitis. 4. Dysphagia. 5. Pleural effusion, status post thoracentesis. PLAN: The patient remains stable, improving on current regimen. She is also on Flagyl. We will co ntinue her on current regimen. Dictated By: PHOEBE BANDA INDUSTRIAL LOCOMOTIVE OPERATOR for JUAN THOMAS/JOSUÉ Conf#: [id number] DID#: [id number]
--- NOTE | 2016-04-05 21:51 | DS ---
DATE OF ADMISSION: 02/24/2016 DATE OF DISCHARGE: 04/04/2016 FINAL DISCHARGE DIAGNOSES: 1. Sepsis secondary to possible aspiration pneumonia. 2. Acute respiratory failure, status post ventilatory care and extubation on 03/24/2016. 3. Bilateral pleural effusion, status post thoracentesis x4 during this hospitalization. 4. Severe pancolitis, status post exploratory laparotomy. 5. Left lower extremity cellulitis. 6. Urinary tract infection with Ann glabrata. 7. History of cervical spine injury in [place]. 8. Status post diagnostic laparoscopy on 03/01/2016. 9. Hypokalemia. 10. Hypomagnesemia. CONSULTATIONS DONE DURING THIS HOSPITALIZATION: 1. Infectious disease consult, Dr. Ornelas. 2. General surgery consult, Dr. Von Raza. 3. GI consult, Dr. Hoang. 4. Pulmonary consult, Dr. Joshua. PROCEDURES PERFORMED DURING THIS HOSPITALIZATION: 1. The patient underwent a diagnostic laparoscopy done on 03/01/2016. 2. The patient underwent a thoracentesis done x4 during this hospitalization 03/18/2016, 03/24/2016 , 03/30/2016 and 04/03/2016. 3. Barium swallow study done which shows a possible concern about aspiration, but the patient's fam chivo decided to treat it with a p.o. diet. HOSPITAL COURSE: This is a 80-year-old female with a past medical history of hypertension, history of recent trauma in [place] and had a rib fracture over there. The patient got admitted over there a nd did not feel better and was discharged home. Patient had a chest tube placed in [place] which did not heal her pneumonia. She was brought in by family to the [facility] and then came to the [facility]. She was noted to have a left pneumothorax that required a chest tube. The patient had a pos sible concern about sepsis secondary to pneumonia. She was treated with IV antibiotics and subseque ntly downgraded to the telemetry floor. The patient's condition deteriorated and was followed up by a pulmonary physician. She got transferred back to the ICU for acute respiratory failure, required intubation and ventilator care. She was treated with IV antibiotics. She had a urinary tract infe ction with Ann glabrata. The patient also had a GI consultation done and general surgery consul tation done. She underwent a diagnostic laparoscopy done by Dr. Raza in 02/2016. She had pancol itis that was treated with IV antibiotics. The patient has recurrent pleural effusion on the right side and she required thoracentesis x4 during this hospitalization. She had a last thoracentesis do ne on 03/24/2016 and approximately 800 mL fluid was drained. She was started on p.o. antibiotics, L asix and metolazone for diuresis and also the potassium replacement. She remained hemodynamically s table and she got discharged to a group home facility, [facility]. DISPOSITION: To group home [facility]. DISCHARGE CONDITION: Stable and improved compared to admission. DISCHARGE ACTIVITIES: As tolerated, slowly resume to the normal baseline activity. DISCHARGE DIET: Regular diet. DISCHARGE MEDICATIONS: As per medical reconciliation. Please note that the patient is on Lasix and metolazone for diuresis upon discharge to a group home facility. DISCHARGE FOLLOWUP AND INSTRUCTIONS: The patient is to follow up with the physician at the group home facility and the patient will be followed up by other subspecialist physician as outpatient and the family understood and verbalized understanding. Dictated By: HOWARD LEVY MD, KP/JOSUÉ Conf#: [id number] DID#: [id number]
== END 2016-04-04 14:04 | DRG 853 ==
LOC: E/R 23:00 → TEL 02-24 04:06 → ICU 02-25 15:05 → TEL 03-11 18:58 → ICU 03-19 15:51 → MS4 03-27 00:01
PROVIDERS: ADMIT Internal Medicine Nephrology; ATTEND Internal Medicine Nephrology
PROC: 0W3 Anatomical Regions, General, Control (ICD-10-PCS; 2016-02-25)
PROC: 0W9B40Z Drainage of Left Pleural Cavity with Drainage Device, Percutaneous Endoscopic Approach (ICD-10-PCS; 2016-02-25)
PROC: 0BDP4ZZ Extraction of Left Pleura, Percutaneous Endoscopic Approach (ICD-10-PCS; principal; 2016-02-25 13:00)
PROC: 0FB04ZX Excision of Liver, Percutaneous Endoscopic Approach, Diagnostic (ICD-10-PCS; 2016-03-01)
PROC: 0W9G4ZX Drainage of Peritoneal Cavity, Percutaneous Endoscopic Approach, Diagnostic (ICD-10-PCS; 2016-03-01)
PROC: 0WJJ4ZZ Inspection of Pelvic Cavity, Percutaneous Endoscopic Approach (ICD-10-PCS; 2016-03-01)
PROC: 5A1955Z Respiratory Ventilation, Greater than 96 Consecutive Hours (ICD-10-PCS; 2016-03-03)
PROC: 0W993ZX Drainage of Right Pleural Cavity, Percutaneous Approach, Diagnostic (ICD-10-PCS; 2016-03-18)
PROC: 0BH17EZ Insertion of Endotracheal Airway into Trachea, Via Natural or Artificial Opening (ICD-10-PCS; 2016-03-19)
PROC: 5A1955Z Respiratory Ventilation, Greater than 96 Consecutive Hours (ICD-10-PCS; 2016-03-19)
PROC: 02HV33Z Insertion of Infusion Device into Superior Vena Cava, Percutaneous Approach (ICD-10-PCS; 2016-03-22)
PROC: 02HV33Z Insertion of Infusion Device into Superior Vena Cava, Percutaneous Approach (ICD-10-PCS; 2016-03-22)
PROC: 0W993ZX Drainage of Right Pleural Cavity, Percutaneous Approach, Diagnostic (ICD-10-PCS; 2016-03-24)
PROC: 30233N1 Transfusion of Nonautologous Red Blood Cells into Peripheral Vein, Percutaneous Approach (ICD-10-PCS; 2016-03-24)
PROC: 0W993ZZ Drainage of Right Pleural Cavity, Percutaneous Approach (ICD-10-PCS; 2016-03-30)
PROC: 0W993ZZ Drainage of Right Pleural Cavity, Percutaneous Approach (ICD-10-PCS; 2016-04-03)
DX: A41.9 Sepsis, unspecified organism (principal); J18.9 Pneumonia, unspecified organism; J96.01 Acute respiratory failure with hypoxia; N17.0 Acute kidney failure with tubular necrosis; J69.0 Pneumonitis due to inhalation of food and vomit; I50.23 Acute on chronic systolic (congestive) heart failure; S27.2XXA Traumatic hemopneumothorax, initial encounter; S22.058A Other fracture of T5-T6 vertebra, initial encounter for closed fracture; I13.0 Hypertensive heart and chronic kidney disease with heart failure and stage 1 through stage 4 chronic kidney disease, or unspecified chronic kidney disease; R09.2 Respiratory arrest; J95.821 Acute postprocedural respiratory failure; S22.068A Other fracture of T7-T8 thoracic vertebra, initial encounter for closed fracture; S22.43XA Multiple fractures of ribs, bilateral, initial encounter for closed fracture; E87.2 Acidosis; S22.078A Other fracture of T9-T10 vertebra, initial encounter for closed fracture; N39.0 Urinary tract infection, site not specified; E87.1 Hypo-osmolality and hyponatremia; J98.11 Atelectasis; S22.088A Other fracture of T11-T12 vertebra, initial encounter for closed fracture; B37.49 Other urogenital candidiasis; S32.018A Other fracture of first lumbar vertebra, initial encounter for closed fracture; S32.028A Other fracture of second lumbar vertebra, initial encounter for closed fracture; S32.038A Other fracture of third lumbar vertebra, initial encounter for closed fracture; S32.048A Other fracture of fourth lumbar vertebra, initial encounter for closed fracture; L03.116 Cellulitis of left lower limb; R65.20 Severe sepsis without septic shock; E11.51 Type 2 diabetes mellitus with diabetic peripheral angiopathy without gangrene; R13.10 Dysphagia, unspecified; I73.9 Peripheral vascular disease, unspecified; D64.9 Anemia, unspecified; N18.9 Chronic kidney disease, unspecified; R74.0 Nonspecific elevation of levels of transaminase and lactic acid dehydrogenase [LDH]; F17.200 Nicotine dependence, unspecified, uncomplicated; E03.9 Hypothyroidism, unspecified; W13.2XXA Fall from, out of or through roof, initial encounter; M43.12 Spondylolisthesis, cervical region; M43.13 Spondylolisthesis, cervicothoracic region; M48.02 Spinal stenosis, cervical region; K52.89 Other specified noninfective gastroenteritis and colitis; E88.09 Other disorders of plasma-protein metabolism, not elsewhere classified; R76.12 Nonspecific reaction to cell mediated immunity measurement of gamma interferon antigen response without active tuberculosis; S19.9XXA Unspecified injury of neck, initial encounter; M51.36 Other intervertebral disc degeneration, lumbar region; Z22.322 Carrier or suspected carrier of Methicillin resistant Staphylococcus aureus; Z66 Do not resuscitate
CPT/HCPCS: 31500; 32555; 36415; 36430; 36569; 36600; 70450; 71010; 71275; 72125; 72128; 72131; 72156; 74000; 74176; 74177; 74230; 76604; 76705; 76937; 76942; 80048; 80053; 80061; 80202; 81001; 81003; 82150; 82550; 82553; 82570; 82728; 82803; 82945; 82962; 83036; 83540; 83605; 83615; 83690; 83735; 83986; 84100; 84132; 84155; 84157; 84300; 84436; 84443; 84479; 84484; 85025; 85610; 85730; 86480; 86704; 86709; 86803; 86850; 86900; 86901; 86920; 87040; 87045; 87070; 87075; 87081; 87086; 87102; 87116; 87205; 87340; 88104; 88305; 88307; 88313; 89050; 89190; 89220; 90686; 92526; 92610; 92611; 92950; 93005; 93306; 93970; 94002; 94003; 94640; 94664; 94770; 96365; 96366; 96372; 96375; 97110; 97162; 97164; 97530; J1940; C9113; J0330; J0360; J0692; J1100; J1170; J1450; J1644; J1650; J1956; J2001; J2060; J2185; J2250; J2270; J2274; J2370; J2405; J2543; J2765; J3010; J3243; J3370; J3475; J3480; J7030; J7040; J7042; J7050; J7070; P9016; P9047; Q9967